=== PATIENT | male | born 1950 | race Caucasian/White ===

== ENCOUNTER 2023-05-17 07:18 | Outpatient (RCR) | payer OTHER, SELFPAY | END 2023-05-17 23:59 | disposition home or self-care (01) | LOC: RPT 07:18 | PROVIDERS: ATTENDING PHYSICIAN Family Medicine | DX: I89.0 Lymphedema, not elsewhere classified (principal); L03.115 Cellulitis of right lower limb; Z73.6 Limitation of activities due to disability | CPT/HCPCS: 97162; 97535; 97760 ==

== ENCOUNTER 2023-07-28 14:22 | Outpatient (RCR) | payer OTHER, SELFPAY | END 2023-07-28 23:59 | disposition home or self-care (01) | LOC: RPT 14:22 | PROVIDERS: ATTENDING PHYSICIAN Family Medicine | DX: I89.0 Lymphedema, not elsewhere classified (principal); L03.115 Cellulitis of right lower limb; Z73.6 Limitation of activities due to disability | CPT/HCPCS: 97535; 97763 ==

== ENCOUNTER 2024-05-20 13:05 | Inpatient (IN) | payer OTHER, MEDICARE, SELFPAY ==
[2024-05-20] VITALS (18 sets, daily range): BP systolic 75–111; BP diastolic 49–62; BMI 41.5
[2024-05-20 08:40] LABS: Hematocrit 37.3 % (39.0-52.0); Hemoglobin 12.7 g/dL (13.0-18.0); Mean Corpuscular Hgb 27.4 pg (27.0-31.0); Mean Corpuscular Volume 80.4 fL (80.0-94.0); Mean Platelet Volume 9.8 fL (7.4-10.4); Platelet Count 474 10^3/uL (130-400); Red Blood Cell Count 4.64 10^6/uL (4.70-6.10); Red Cell Dist. Width 15.4 % (11.5-14.5); White Blood Cell Count 24.2 10^3/uL (4.8-10.8)
--- NOTE | 2024-05-20 08:54 | ED.GENMED ---
History of Present Illness
General
Chief Complaint: Abdominal Symptoms
Time Seen by Provider: 05/20/24 08:24
History of Present Illness
History of Present Illness:
73-year-old male with history of hypertension, hyperlipidemia, and qsu-tkpibsy-bzyzolygi diabetes presents to the emergency department for evaluation of failure to thrive. He states that he lives alone and is unable to walk due to severe lower
extremity lymphedema. Does not really get himself to the bathroom nor has he been eating or drinking. He states he has been taking his prescribed medications. Also notes gradual worsening shortness of breath particular with exertion. Denies
fevers or chest pain.
Review of Systems
Review of Systems
Allergies reviewed?: Yes
All Other Systems: ROS reviewed and negative except as documented in HPI and ROS
Phy Exam
Physical Exam
Physical Exam:
GEN: Obese, malodorous, poor hygiene, disheveled
HEENT: Oral mucosa moist, no scleral icterus
Cardiac: Regular rate and rhythm, prominent 5/6 systolic murmur
Lung: No respiratory distress, no tachypnea, lungs clear to auscultation bilaterally
MSK: No gross deformities
Skin: Massive lower extremity lymphedema with severe skin desquamation and serous discharge circumferentially to bilateral lower extremities
Neuro: AO x3, moves all extremities freely
Psych: Calm, cooperative
Course
Orders/Labs/Results
Orders:
Orders
05/20/24 08:30
Alcohol Urgent
B-Hydroxybutyrate Urgent
Comment: ADDON
CMP [Comprehensive Metabolic Panel] Urgent
Complete Blood Count/With Diff Urgent
05/20/24 08:31
ECG [Electrocardiogram (*1)] Urgent
Reason for Study: Shortness of Breath
EKG- Treatment ONCE
05/20/24 08:54
CR Chest Portable - 1 View Urgent
Comment:
Reason For Exam: SOB
Reason Study Needs to be Portable: Unable to Transport
05/20/24 09:07
Lactic Acid Q4H
Comment: CANCEL 2nd LACTIC ACID IF 1st LACTIC ACID IS LESS THAN 2
NT-proBNP Urgent
Troponin I Urgent
Blood Culture Q30M
BUNNY Source: Blood/Venous
Specimen Description:
05/20/24 09:27
Venous Blood Gas Urgent
%Oxygen/Room Air: 96
Blood Culture Q30M
BUNNY Source: Blood/Venous
Specimen Description:
0.9% Sodium Chloride 1000 ml [Nss] 1,000 ml IV BOLUS
05/20/24 10:06
Abraham Placement- Treatment ONCE
Reason for insertion: I&O's Critical Care
Cefepime HCl [Maxipime] 2,000 mg IV NOW STA
05/20/24 10:07
Heparin 4,000 units IV NOW STA
Vancomycin [Vancocin] 1,500 mg 0.9% Sodium Chloride 500 ml [Nss] 500 ml IV NOW
Nursing to Place Non Medication Order As Directed
Physician Order: PTT 6 hours after initial start of Heparin infusion
Above order entered?: Yes
05/20/24 10:15
Heparin 54369 Units/250 ml 25,000 units in 250 ml IV PER PROTOCOL
Weight to be used for heparin protocol in kilograms (kg):: 127.5
Protocol:: Cardiac Tx/Acute Coronary
PTT Goal Range to be used:: PTT 73 to 111 seconds
Order type:: Initial
INITIAL Infusion Dose (UNITS/KG/hr) & then follow protocol:: 12 units/kg/hr
Infusion Dose in UNITS/hr & then follow protocol (UNITS/hr):: 1,000
INFUSION RATE in mL/hr & then follow protocol (mL/hr):: 10
PTT less than or equal to 64 seconds:: Increase rate by 200 units/hr (+ 2 mL/hr)
PTT 64.1 to 72.9 seconds:: Increase rate by 100 units/hr (+ 1 mL/hr)
PTT 73 to 111 seconds:: Target Range. No change in rate.
PTT 111.1 to 130.9 seconds:: Decrease rate by 100 units/hr (- 1 mL/hr)
PTT 131 to 199.9 seconds:: HOLD for 1 hr. Then decrease rate by 200 units/hr (- 2 mL/hr)
PTT greater than or equal to 200 seconds:: HOLD for 2 hrs & Notify Provider. Then decrease by 200 units/hr (-
2 mL/hr)
Lab follow-up:: Each change, PTT q6h until 2 consecutive are therapeutic. Then PTT
daily.
05/20/24 10:26
PTT Urgent
Comment: Obtain baseline before beginning heparin infusion if not already collected
Urinalysis Reflex To Culture Urgent
Date Specimen was Collected: 05/20/24
Time Specimen was Collected: 10:03
Urine Creatinine Urgent
Date Specimen was Collected: 05/20/24
Time Specimen was Collected: 10:03
Comment: ADD ON
Urine Microscopic Reflex Cult Urgent
Urine Protein Urgent
Date Specimen was Collected: 05/20/24
Time Specimen was Collected: 10:03
Comment: ADD ON
Urine Sodium Urgent
Date Specimen was Collected: 05/20/24
Time Specimen was Collected: 10:03
Comment: ADD ON
Urine Culture Urgent
BUNNY Source: U
Specimen Description:
Date Specimen was Collected: 05/20/24
Time Specimen was Collected: 10:03
05/20/24 10:30
Dextrose 5%/Water 1000 ml [D5w] 1,000 ml Sodium Bicarbonate 150 meq IV 125 mls/hr
05/20/24 11:50
Add On- LAB Routine
Tests Added?: urine sodiu, urine creatinine, urine protein
05/20/24 12:43
Admit/Transfer Patient As Directed
Co-Sign Provider:
Level of Care: Inpatient admission
Assign to:: IMU- Intermediate Care
Physician / Group: Hospitalist
Diagnosis: Sepsis +CLIFF
Reason for Hospitalization: Sepsis+CLIFF+A fib
Expected length of stay greater than two midnights?: Yes
ELOS- Estimated Length of Stay in days: 4
I certify the patient meets the requirements for IP care: Yes
PRN Pain Medication Management As Directed
May give lesser potent ordered pain med per pt: Yes
preference::
Protocol:: Medication orders for pain may be administered in a
manner that supports deferring to patient preference
when the pt is:
- Requesting an ordered lesser potent pain medication.
Least to most potent pain medications are defined
as: acetaminophen < NSAID < tramadol < opioids
(morphine, oxycodone, hydromorphone).
- Requesting a lesser dose of the same medication IF
ORDERED.
- Requesting a less intrusive route of administration
if both routes are prescribed by the provider (PO <
IV).
05/20/24 12:46
Code Status As Directed
Resuscitation Status: Full Code
05/20/24 14:10
Dextrose 50%-Water [Dextrose 50% Syringe] 12.5 grams IV [id number] PRN
Glucagon [GlucaGen] 1 mg IM PRN PRN
VANCOMYCIN Pharmacy to Dose [VANCOCIN Pharmacy to Dose] 1 each Pharmacy To Prepare [Call Pharmacy To Prepare] 0 ml IV PER PROTOCOL
05/20/24 14:10
Activity As Directed
Activity Level: As Tolerated
Bedside Glucose Monitoring As Directed
Frequency: AC&HS
Additional Instructions:: Change to q6h if pt on TPN, tube feeding or not eating
Intake/ Output As Directed
Frequency: Per unit guidelines
Vital Signs As Directed
Frequency: Per unit guidelines
05/20/24 16:30
PTT Urgent
Insulin Aspart Corrective Low [Novolog Flexpen-Low Resistance] See Protocol SC AC
05/21/24 06:00
Electrocardiogram (*1) IN AM
Reason for Study: Atrial Fibrillation
Complete Blood Count/No Diff IN AM
Comprehensive Metabolic Panel IN AM
Glycohemoglobin (HgbA1c) IN AM
05/21/24 10:00
Cefepime HCl [Maxipime] 1,000 mg IV Q24H
Abnormal Lab Results
05/20/24 05/20/24 05/20/24
: 09:27 10:26
WBC 24.2 H 10^3/uL
(4.8-10.8)
RBC 4.64 L 10^6/uL
(4.70-6.10)
Hgb 12.7 L g/dL
(13.0-18.0)
Hct 37.3 L %
(39.0-52.0)
RDW 15.4 H %
(11.5-14.5)
Plt Count 474 H 10^3/uL
(130-400)
Abs Immat Gran (auto) 0.3 H 10^3/uL
(0-0.05)
Absolute Neuts (auto) 21.4 H 10^3/uL
(1.4-6.5)
Absolute Lymphs (auto) 0.7 L 10^3/uL
(1.2-3.4)
Absolute Monos (auto) 1.7 H 10^3/uL
(0.1-0.6)
Immature Gran % 1.1 H %
(0-0.5)
Neutrophils % 88.2 H %
(42.2-75.2)
Lymphocytes % 3.0 L %
(20.5-51.1)
APTT 35.4 H Sec
(23.4-35.0)
VBG pH 7.22 L
(7.32-7.43)
VBG HCO3 17.6 L mmol/L
(22-27)
Sodium 130 L mmol/L
(135-145)
Potassium 5.7 H mmol/L
(3.5-5.1)
Chloride 96 L mmol/L
(98-107)
Carbon Dioxide 17 L mmol/L
(22-30)
BUN 128 H* mg/dl
(9-20)
Creatinine 5.3 H* mg/dL
(0.7-1.3)
Glucose 164 H mg/dl
(70-99)
Total Bilirubin 1.4 H mg/dl
(0.2-1.3)
Alkaline Phosphatase 209 H U/L
(38-126)
Albumin 3.2 L g/dl
(3.5-5.0)
Ur Occult Blood Reflex 1+ A
(Negative)
Urine Bilirubin 2+ A
(Negative)
Leukocyte Esterase Rfl 2+ A
(Negative)
Urine Bacteria (Reflex) Many A
(Negative)
Urine Sodium 13 L mmol/L
(30-90)
Urine Total Protein 82 H mg/dl
(0-12)
Urine Albumin (Reflex) 3+ A
(Neg - Trace)
05/20/24 08:30
05/20/24 08:30
Vital Signs
Initial and Last Documented VS:
Initial Vital Signs
Pulse Resp BP
109 9 90/52
05/20/24 08:12 05/20/24 08:12 05/20/24 08:12
Last Documented Vital Signs
Temp Pulse Resp BP Pulse Ox
98.3 F 93 21 96/57 97
05/20/24 08:14 05/20/24 11:00 05/20/24 11:00 05/20/24 11:00 05/20/24 10:00
MDM/Problems Addressed
MDM/Problems Addressed:
Patient is profoundly ill in acute renal failure with metabolic acidosis and hyperkalemia. Started on IV fluid resuscitation and IV sodium bicarbonate for correction of acidosis with gap. Concerned that he may progress to worsening renal failure
given lack of urine output while in the ED. He is also noted to have a blowing systolic murmur, limited bedside echocardiogram performed by myself shows no pericardial effusion. He does have severe cardiomegaly which gives concern for possible LVH
versus valvular disease. Also noted to have severe leukocytosis which is most likely due to cellulitis to the bilateral lower extremities. Started on broad-spectrum IV antibiotics. Admitted to the hospitalist service, nephrology consultation
initiated in the ED
*Critical Care Note
Total Time (30-74mins, 75-104mins- exclusive of procedures): 80 minutes
comment:
Critical care time: 80 minutes
Critical care time was exclusive of: Separately billable procedures, treating other patients, and teaching time
Critical care was necessary to treat or prevent imminent or life-threatening deterioration of the following conditions: Metabolic acidosis/renal failure
Critical care time spent personally by me on the following activities:
[x] Review of old charts
[x] Obtaining history from patient or surrogate
[x] Ordering and review of the laboratory studies
[x] Ordering and review of radiographic studies
[x] Ordering and performing treatments and interventions
[x] Patient patient's response to treatment
[x] Development of treatment plan with patient or surrogate
ED Attending Note
-
Portions of this chart may have been created with voice recognition software.� Occasional wrong word or��sound alike� substitutions may have occurred due to the inherent limitations of voice recognition software.
Discharge Plan
Departure
Patient Disposition: Admit
Date of Disposition: 05/20/24
Time of Disposition: 10:43
Admit to: IMU
Presentation/result/management discussed w/ accepting MD/DO: Hospitalist
Discharge Problem:
Acute renal failure, Bilateral lower leg cellulitis, Heart murmur, Cardiomegaly, Adult failure to thrive, Metabolic acidosis, Acute hyperkalemia
Interventions
Interventions:
*Risk Screen - Suicide Last Done: 05/20/24 08:14
*General Assessment Last Done: 05/20/24 08:14
*Neglect/Abuse Screening Last Done: 05/20/24 08:14
*ED- Fall Risk Assessment Last Done: 05/20/24 08:14
*ED COVID-19 Vaccine History Last Done: 05/20/24 08:14
VC-Wujtop-Sxcbcopsxj Assessment Last Done: 05/20/24 08:49
[2024-05-20 08:57] LABS: ALT (SGPT) 19 U/L (0-50); AST (SGOT) 20 U/L (17-59); Albumin 3.2 g/dl (3.5-5.0); Alkaline Phosphatase 209 U/L (38-126); Calcium 9.1 mg/dl (8.4-10.2); Carbon Dioxide 17 mmol/L (22-30); Chloride 96 mmol/L (98-107); Estimated Creatinine Clearance 16 ml/min; Glucose 164 mg/dl (70-99); Potassium 5.7 mmol/L (3.5-5.1); Sodium 130 mmol/L (135-145); Total Bilirubin 1.4 mg/dl (0.2-1.3); Total Protein 6.8 g/dl (6.3-8.2); eGFR 10.61
[2024-05-20 09:17] LABS: Blood Urea Nitrogen 128 mg/dl (9-20)
[2024-05-20 09:20] LABS: % Basophils 0.4 % (0-2); % Eosinophils 0.2 % (0-6); % Immature Granulocytes 1.1 % (0-0.5); % Monocytes 7.1 % (1.7-9.3); % Neutrophils 88.2 % (42.2-75.2); Absolute Basophils 0.1 10^3/uL (0-0.2); Absolute Immature Granulocytes 0.3 10^3/uL (0-0.05); Absolute Lymphocytes 0.7 10^3/uL (1.2-3.4); Absolute Monocytes 1.7 10^3/uL (0.1-0.6); Absolute Neutrophils 21.4 10^3/uL (1.4-6.5); Nucleated Red Blood Cells % 0 % (-)
[2024-05-20 09:25] LABS: Lactic Acid 1.6 mmol/L (0.7-2.0)
[2024-05-20 09:38] LABS: NT-proBNP 10600 pg/ml; Troponin I < 0.012 ng/ml
[2024-05-20 09:42] LABS: Venous Blood Gas B.E. -9.7 mmol/L (-4 to +4); Venous Blood Gas HCO3 17.6 mmol/L (22-27); Venous Blood Gas O2 Sat % 64.8 %; Venous Blood Gas pCO2 43 mmHg (35-48); Venous Blood Gas pH 7.22 (7.32-7.43); Venous Blood Gas pO2 45 mmHg (30-50)
[2024-05-20] MEDS: NSS 1000 IV (09:53)
[2024-05-20] MEDS: MAXIPIME 2000 MG IV (10:18)
[2024-05-20] MEDS: HEPARIN 4000 UNITS IV (10:31)
[2024-05-20] MEDS: HEPARIN 25000 UNITS/250 ML IV (10:31)
[2024-05-20] MEDS: VANCOCIN 530 MG IV (10:40)
[2024-05-20 10:56] LABS: APTT 35.4 Sec (23.4-35.0); Urine Albumin 3+ (Neg - Trace); Urine Bilirubin 2+ (Negative); Urine Character Clear (Clear); Urine Color Amber; Urine Glucose Negative (Negative); Urine Ketone Negative (Negative); Urine Leukocyte 2+ (Negative); Urine Nitrite Negative (Negative); Urine Occult Blood 1+ (Negative); Urine Urobilinogen 1+ (Neg - 1+)
[2024-05-20 11:23] LABS: Urine Squamous Cell 0-2 /LPF (Few)
[2024-05-20 11:24] LABS: Urine Bacteria Many (Negative); Urine Red Blood Cell 0-2 /HPF (0-2)
--- NOTE | 2024-05-20 11:26 | W.CON.NEPH ---
Consultation
-
Date/Time Consultation Requested: 05/20/24 1045
Date/Time Consultation Performed: 05/20/24 1115
Requesting Provider: John Paul Cummings
Performing Provider: Kassie Layton
Reason for Consultation: JOSEPHINE
Medical History
-
Chief Complaint: abd pain, FTT
History of Present Illness:
Mr Currie is a 73-year-old male who has history of hypertension on and atenolol,amlodipine, valsartan, hydrochlorothiazide, type 2 diabetes on metformin, chronic lymphedema who reportedly [facility] on [facility]sem[facility] with no known
history of heart disease, hyperlipidemia on statin who presents to the hospital with upset stomach and generalized weakness. Patient reports for 1 month he hasn't been feeling well. He had mild asthma and increased symptoms earlier and saw
pulmonology, takes inhalers which seem to help. He thinks he might have lost some weight due to poor appetite. He reports of drinking enough liquids however he did notice decreased urine output lately. Denies any dysuria. He lives alone,
visits him weak and that she works in [place]. Denies any fever. No nausea or vomiting. No diarrhea. His labs noted WBC of 24.2,Creatinine 5.3, BUN 128, bicarbonate 17, potassium 5.7 with elevated BNP 10,600, His blood pressures systolic are
90s. His baseline creatinine 1.2 in March 2023. Nephrology consult for abnormal renal function. He has a Echevarria catheter placed only 50 cc of urine in the bag. reports of using ibuprofen every day for last 1 week.
Past Medical History
Hypertension
Hyperlipidemia
Asthma
Morbid obesity
Lower extremity lymphedema
Type 2 diabetes
Social History
Tobacco: Former Smoker
Alcohol: Daily ( 1-2 drinks)
Drug: None
Personal:
Living: Alone
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
Family History
no ckd
Family History: Not Pertinent
Allergies / Home Medications
Allergy/AdvReac Type Severity Reaction Status Date / Time
No Known Allergies Allergy Unverified 05/20/24 08:12
�Medication �Instructions �Recorded �Confirmed �Type
amlodipine 10 mg tablet 10 mg PO DAILY 05/20/24 05/20/24 History
atenolol 50 mg tablet 50 mg PO DAILY 05/20/24 05/20/24 History
atorvastatin 20 mg tablet (Lipitor) 20 mg PO DAILY 05/20/24 05/20/24 History
metformin 1,000 mg tablet 1,000 mg PO BID 05/20/24 05/20/24 History
potassium chloride 10 mEq 10 meq PO DAILY 05/20/24 05/20/24 History
capsule,extended release
torsemide 1 tab PO DAILY 05/20/24 History
valsartan 320 1 tab PO DAILY 05/20/24 05/20/24 History
mg-hydrochlorothiazide 25 mg tablet
Review of Systems
-
All complete 12 point ROS have been inquired and found negative other than stated in HPI
Physical Exam
Vital Signs
Vital Signs
Temp Pulse Resp BP Pulse Ox
98.3 F 93 21 96/57 97
05/20/24 08:14 05/20/24 11:00 05/20/24 11:00 05/20/24 11:00 05/20/24 10:00
Lab Results
WBC 24.2 10^3/uL (4.8-10.8) H 05/20/24 08:30
RBC 4.64 10^6/uL (4.70-6.10) L 05/20/24 08:30
Hgb 12.7 g/dL (13.0-18.0) L 05/20/24 08:30
Hct 37.3 % (39.0-52.0) L 05/20/24 08:30
Plt Count 474 10^3/uL (130-400) H 05/20/24 08:30
Sodium 130 mmol/L (135-145) L 05/20/24 08:30
Potassium 5.7 mmol/L (3.5-5.1) H 05/20/24 08:30
Chloride 96 mmol/L (98-107) L 05/20/24 08:30
Carbon Dioxide 17 mmol/L (22-30) L 05/20/24 08:30
BUN 128 mg/dl (9-20) H* 05/20/24 08:30
Creatinine 5.3 mg/dL (0.7-1.3) H* 05/20/24 08:30
eGFR 10.61 05/20/24 08:30
Glucose 164 mg/dl (70-99) H 05/20/24 08:30
Calcium 9.1 mg/dl (8.4-10.2) 05/20/24 08:30
Vdd-K-Unpbpnjfzwj Pept 20536 pg/ml 05/20/24 09:07
Albumin 3.2 g/dl (3.5-5.0) L 05/20/24 08:30
Physical Exam
General: Awake, Alert, Oriented, AOx3 and No Distress
HEENT: EOMI, Anicteric, Conjunctivae Clear, Facial Symmetry and Neck Supple
Respiratory: Normal Excursion, Nonlabored Respirations and Other (decreased BS)
Cardiac: S1/S2, Murmur and Rub
Breast: Deferred by me
Abdomen: Soft, Nontender and Nondistended
Genito-urinary: Clear Urine
Musculoskeletal: Edema (3+)
Skin: Other (Chronic skin changes with the erythema of the lateral lower extremities, there is mild pussy discharge in the right leg)
Neuro: Nonfocal/Grossly Intact
Psych: Mood/afflect pleasant and Appropriate
Data Reviewed
-
Radiology: Report Reviewed by me and Discussed with Patient
Labs: Labs Reviewed by me, Discussed with Physician and Discussed with Patient
Assessment/Plan
-
IMP:
Possible sepsis with bilateral lower extremity cellulitis
Josephine-Baseline creatinine of 1. 16 March 2023
Hyperkalemia
Significant azotemia
Anion gap metabolic acidosis
Hyponatremia
new A. fib
Type 2 diabetes
Lymphedema
Hypertension
Hyperlipidemia
Asthma
Obesity
Hypoalbuminemia
heart murmur
Plan:
A/w abd pain, FTT
JOSEPHINE-suspect prerenal in setting of sepsis and poor po intake +NSAIDs
only 50cc in echevarria , UA bacteruria but 3+ alb-check U PCR
check renal US
abnormal heart sound, low voltage on EKG, no effusion per ER on pint of care US
check echo, BNP elevated
difficult to assess fluid status, would continue IVF at this time
BP are marginal, prn pressors to keep MAP>65
hyperkalemia-stop kcl, expect to improve as acidosis is better, Lokelma prn
met acidosis-gap, L acid normal. on bicarb IVF
recheck labs later today and adjust IVF
no emergent indication of HD however at high risk-pt agrees with HD if needed
hyponatremia-monitor
dose abx renally , avoid nephrotoxins , hold diuretics, ARB, metformin
d/w ER and pt
CC time spent 45min
[2024-05-20] MEDS: SODIUM BICARBONATE 1150 MEQ IV (12:36)
--- NOTE | 2024-05-20 12:42 | HPS.HSE ---
Addendum entered and electronically signed by Luz Collazo MD 05/20/24 16:15:
I personally performed a history and physical exam of the patient and discussed management with the resident. I reviewed the resident's note and agree with the documented findings and plan of care HPI/CC.
Patient was seen earlier today. Late documentation.
Stated that he lives on the middle floor of the house and does not go up to get a shower. For the past couple of weeks he has been very much sedentary and has been going downhill. Stated that his works in [place] and she comes back over the
weekend otherwise he lives by himself. He has not seen a physician in 4 years.
On examination awake and alert
Cardiovascular system irregular S1-S2
Chest decreased breath sounds bilaterally
Abdomen soft and nontender
Bilateral lower extremity with weeping small wounds and skin discoloration bilaterally. Chronic venous stasis changes with skin thickening
# Sepsis
Likely source cellulitis
Cannot rule out UTI blood cultures pending.
Continue vancomycin and cefepime
Wound care
When pain is better needs compression therapy
# Acute kidney injury with metabolic acidosis and hyperkalemia
Check urine sodium creatinine, FENA
Both And nongap metabolic acidosis
Abraham catheter placed in the ER
Hold valsartan, hydrochlorothiazide, potassium, torsemide, metformin and also atenolol
Will give Lokelma for hyperkalemia
Intake output charting
IV fluids with bicarb for now
Patient really needs to get an echo to guide fluid management if the EF is less than 30% really needs diuresis
Depending upon the echo patient may need Lasix if the EF is less than 30%
proBNP 10,600
Nephrology consulted
# Cardiomegaly. Possible CHF/cardiomyopathy
Patient really needs to get an echo to guide fluid management if the EF is less than 30% really needs diuresis
Depending upon the echo patient may need Lasix if the EF is less than 30%
proBNP 10,600
# Hyponatremia
# New onset atrial fibrillation
Heparin drip started in the ER
Hold atenolol given renal failure
Consider metoprolol if heart rate goes up
# Diabetes-hold metformin. Check hemoglobin A1c. Accu-Cheks and sliding scale coverage
# Alcohol use disorder drinks 3 glass of vodka every dayMSAS and thiamine replacement
# Hypertension-hold valsartan, hydrochlorothiazide, amlodipine and atenolol. Blood pressure on the softer side
# Hyperlipidemia-continue atorvastatin
# Obesity with a BMI of 41
# Hypoalbuminemia
# Chronic lymphedema bilateral lower extremities
# DVT prophylaxis-subcutaneous heparin
# Full code
Medically very complex
Discussed with cardiology
Time spent over 75 minutes
Original Note:
Family Physician
-
Family Physician: Lisha Gold MD
Chief Complaint
-
Weak and not feeling well overall
History of Present Illness
73-year-old male with known past medical history of hypertension, hyperlipidemia, lymphedema bilateral LE and inu-oozjbqy-vdgqobpam diabetes presented in the emergency department with concerns of not feeling well for last few weeks.
He informed me that his family doctor is in [place] and his last visit was more than 4 years ago. He has been doing okay without needing any care however for the last few weeks he has been noticing weakness and for the past 2 days he has been
having trouble urination. In addition to that he has been noticing some discharge from bilateral lower legs. He states that his appetite also decreased, he lives alone in a multistory home where he he is usually not able to take shower for weeks.
Per patient he has been compliant with the medication.
He has been noticing gradual worsening of shortness of breath especially with exertion. Denies chest pain, nausea, vomiting, diarrhea and constipation. Denies any recent sick contacts or illness. Denies any recent travel. Denies use of any
illicit drugs. He denies any history of any heart conditions.
Vitals in the ER showed pulse of 109 with blood pressure of 90/52, afebrile.
In the ER he was found to have serum creatinine of 5.3 with BUN of 128. Sodium 130, potassium 5.7, lactic acid 1.6, troponin negative, proBNP 90598, WBC count of 24. VBG with pH of 7.2
UA consistent with UTI
EKG with A-fib
Chest x-ray: Moderate cardiomegaly with likely trace bilateral pleural effusions
Medical History
Past Medical History
Past Medical History: Reports HTN, Hypercholesterolemia, NIDDM and Other (Lymphedema)
Past Surgical History: Reports None (Does not remember any.)
Social History
Tobacco: Non-smoker
Alcohol: Daily (3 vodka)
Drug: None
Personal:
Living: Alone
Family History
Family History: Not pertinent
Allergies / Home Medications
Allergies reflects when Allergies were last updated in [facility].
Home Medications with original date entered in [facility]
Allergy/Medication List:
Allergies
Allergy/AdvReac Type Severity Reaction Status Date / Time
No Known Allergies Allergy Unverified 05/20/24 08:12
Home Medications
amlodipine 10 mg tablet 10 mg PO DAILY 05/20/24
atenolol 50 mg tablet 50 mg PO DAILY 05/20/24
atorvastatin 20 mg tablet (Lipitor) 20 mg PO DAILY 05/20/24
metformin 1,000 mg tablet 1,000 mg PO BID 05/20/24
potassium chloride 10 mEq capsule,extended release 10 meq PO DAILY 05/20/24
torsemide 1 tab PO DAILY 05/20/24
valsartan 320 mg-hydrochlorothiazide 25 mg tablet 1 tab PO DAILY 05/20/24
Review of Systems
-
History Source: Patient
A 12 point ROS was completed and negative except as noted: Yes
Respiratory: Reports See HPI
Cardiac: Reports See HPI
Abdomen/GI: Reports See HPI
: Reports See HPI
Skin: Reports See HPI
Physical Exam
Vital Signs
Vital Signs
Temp Pulse Resp BP Pulse Ox
98.3 F 93 21 96/57 97
05/20/24 08:14 05/20/24 11:00 05/20/24 11:00 05/20/24 11:00 05/20/24 10:00
Physical Exam
General: Appears Chronically Ill and Obese
Respiratory: Non Labored Respirations and Decreased Breath Sounds
Cardiac: S1/S2 and Irregular Rhythm
GI: Soft and Non Tender
Genito-urinary: Abraham
Musculoskeletal: Edema, Left Lower Extremity and Edema, Right Lower Extremity
Skin: Other (Purulent discharge from bilateral lower extremities-tender to touch)
Neuro: Awake, Alert and Oriented
Psych: Calm
Laboratory Results
-
05/20/24 08:30
05/20/24 08:30
Laboratory Results
APTT 35.4 Sec (23.4-35.0) H 05/20/24 10:26
Lactic Acid Cancelled 05/20/24 13:00
Total Bilirubin 1.4 mg/dl (0.2-1.3) H 05/20/24 08:30
AST 20 U/L (17-59) 05/20/24 08:30
ALT 19 U/L (0-50) 05/20/24 08:30
Alkaline Phosphatase 209 U/L (38-126) H 05/20/24 08:30
Troponin I < 0.012 ng/ml 05/20/24 09:07
Data Reviewed
-
Diagnostic Radiology: Report Reviewed by me
Lab Data: Labs Reviewed by me, Discussed with Physician and Discussed with Patient
Impression/Plan
-
73-year-old male with known past medical history of hypertension, hyperlipidemia, lymphedema bilateral LE and gmt-gtstgzy-pzpfsjway diabetes presented in the emergency department with concerns of not feeling well for last few weeks. Found to have
sepsis, CLIFF, new onset A-fib, purulent discharge from bilateral lower extremity lymphedema
# Sepsis -likely due to UTI versus infection and bilateral LE
-Blood culture pending
-UA consistent with UTI; urine culture pending
-Wound consult; potentially will need compression once discharge stops
-Consult ID
-Continue empiric IV Vanco and cefepime
# CLIFF with hyperkalemia
# Hyponatremia; corrected sodium 121
# Metabolic acidosis; anion gap and non-anion gap with delta of 0.7
-Check urine sodium and creatinine; FeNa?
-Abraham in place
-Consult nephro
-Will get beta-hydroxybutyrate
-Avoid nephrotoxins
-Hold home potassium chloride
# New onset atrial fibrillation
-Continue heparin drip
-Chest x-ray with cardiomegaly, bedside echo in the ER shows no pericardial effusion however massive cardiomegaly
-Consult cardiology
-Potentially require echo today
# Lymphedema; bilateral LE
-Purulent on exam
-Wound consult
-Potentially need compression therapy
# Alcohol use disorder
-Drinks 3 vodka daily
-Check serum alcohol level
-MSAS
-Check mag
# Diabetes mellitus type 2
-Check A1c
-Insulin sliding scale
-Hold metformin
# Essential hypertension
-Hold valsartan/HCTZ, atenolol, amlodipine
# Hyperlipidemia
-Continue atorvastatin
CODE STATUS: Full code
Diet: Diabetic plus renal
[2024-05-20 12:55] LABS: Urine Protein 82 mg/dl (0-12); Urine Sodium 13 mmol/L (30-90)
--- NOTE | 2024-05-20 14:26 | CON.CAR ---
Consultation
Consultation Request
Date/Time Consultation Requested: 05/20/2024
Date/Time Consultation Performed: 05/20/2024
Requesting Provider: Dr. Collazo
Performing Provider: Dr. Vargas
Reason for Consultation: AF, CHF
Medical History
-
Chief Complaint: FTT, SOB
History of Present Illness:
I met Kush Cramer in ED bed 39; I later spoke with his Sanam over the phone to obtain more information. Kush is a 73-year-old gentleman with a history of hypertension, type 2 diabetes mellitus, dyslipidemia, lymphedema and obesity who
presents with acute renal failure, volume overload, atrial fibrillation and bilateral cellulitis with concern for sepsis. He has had a previous cardiac evaluation while living in [facility] with Dr. Argueta through [facility] last seen
about 4 to 5 years ago prior to his relocation to this area. His reports that cardiac testing including echo and stress testing were unremarkable and he has no history of atrial fibrillation, thromboembolic disease stroke/TIA, CAD or PAD. He
and his live independently however his does come down to check on him every couple of weeks. She states that in mid March he had a major change and stopped caring for himself becoming more sedentary. He is only moving around the first
floor of his home and he has not showered in approximately a month. He stopped his treatments of lymphedema and has not been eating or drinking. He also drinks approximately 3 glasses of vodka daily.Patient states that he is continued his
outpatient medications which include metformin, potassium chloride, valsartan/hydrochlorothiazide, atenolol, amlodipine and atorvastatin. Additionally he has been taking daily ibuprofen. His came to see him on which prompted
hospitalization today.
In the emergency department he was found to be hypotensive with initial blood pressure 90/52, in atrial fibrillation with heart rates in the 100s. Lab work with WBC 24.2 with left shift, hemoglobin 12.7, platelets of 474,000. Sodium was 130,
potassium 5.7, carbon dioxide 17, BUN and creatinine 128/5.3. Glucose 164, lactic acid 1.6. Total bilirubin 1.4. Alkaline phosphatase 209. AST ALT 20/19. Troponin less than 0.0.1. proBNP 10,600. Blood and urine cultures are pending. Chest
x-ray shows moderate cardiomegaly with trace bilateral pleural effusions. EKG atrial fibrillation with right bundle branch block and left anterior fascicular block with no prior for comparison.
Past medical history: Hypertension, dyslipidemia, type 2 diabetes mellitus, lymphedema, obesity
Past surgical history: Cyst removed from neck
Past Medical History
Past Medical History: Other (See HPI)
Past Surgical History: Other (See HPI)
Social History
Tobacco: Non-Smoker
Alcohol: Daily (3 glasses of vodka daily)
Drug: None
Personal:
Living: Alone
Employment: Retired
Family History
Family History: Reviewed & Not Pertinent
Allergies / Home Medications
Allergy/AdvReac Type Severity Reaction Status Date / Time
No Known Allergies Allergy Unverified 05/20/24 08:12
�Medication �Instructions �Recorded �Confirmed �Type
amlodipine 10 mg tablet 10 mg PO DAILY 05/20/24 05/20/24 History
atenolol 50 mg tablet 50 mg PO DAILY 05/20/24 05/20/24 History
atorvastatin 20 mg tablet (Lipitor) 20 mg PO DAILY 05/20/24 05/20/24 History
metformin 1,000 mg tablet 1,000 mg PO BID 05/20/24 05/20/24 History
potassium chloride 10 mEq 10 meq PO DAILY 05/20/24 05/20/24 History
capsule,extended release
torsemide 1 tab PO DAILY 05/20/24 History
valsartan 320 1 tab PO DAILY 05/20/24 05/20/24 History
mg-hydrochlorothiazide 25 mg tablet
Review of Systems
-
History Source: Patient, Family and Coordinating Provider
All other systems: Negative unless noted
Constitutional: Weight Gain, Fatigue and Sleep Disturbance
EENT: No Symptoms
Respiratory: Trouble Breathing
Cardiac: No Symptoms
Abdomen/GI: Abdominal Pain, Nausea and Constipated
: Other (Decreased urination)
Musculoskeletal: Muscle Pain and Edema
Neurological: Weakness
Hematologic/Lymphatic: No Symptoms
Physical Exam
Vital Signs
Temp Pulse Resp BP Pulse Ox
98.3 F 93 21 96/57 97
05/20/24 08:14 05/20/24 11:00 05/20/24 11:00 05/20/24 11:00 05/20/24 10:00
Lab Results
05/20/24 08:30
05/20/24 08:30
Troponin I < 0.012 ng/ml 05/20/24 09:07
Fjt-Q-Qhzrlmuteql Pept 47474 pg/ml 05/20/24 09:07
Physical Exam
General: Other (Poorly kept 73-year-old gentleman who appears older than stated age)
HEENT: Normocephalic, Anicteric and Other (Dry mucous membranes.)
Respiratory: Other (Bronchovesicular breath sounds decreased at the bases with fine crackles)
Cardiac: S1/S2, Irregular Rhythm and Peripheral Edema; Negative Murmur or Rub
Breast: Deferred by me
GI: Non Tender and Other (Obese, distended. Positive bowel sound)
Musculoskeletal: Other (Lymphedema with chronic venous stasis changes and skin thickening. Malodorous weeping wounds bilaterally.)
Neuro: Other (Awake alert and oriented x 3 but poor historian)
Impression / Plan
-
Power Plant Superintendent: None
Impression:
Atrial fibrillation, new diagnosis
Sepsis with leukocytosis, hypertension with bilateral cellulitis and possible UTI
Acute renal failure with metabolic acidosis and hyperkalemia
Volume overload with component of heart failure with preserved ejection fraction in the setting of acute renal failure
Hyponatremia
Morbid obesity, suspect COLT
Type 2 diabetes mellitus
Hyperlipidemia
Hypertension
Lymphedema
Alcohol use disorder
Poor self care
2D echocardiogram done at bedside in ED: Normal left ventricular size and systolic function with a EF estimated around 60% with moderate LVH. Aortic sclerosis without aortic stenosis or insufficiency. Mild mitral regurgitation. Trace tricuspid
regurgitation. Biatrial dilatation.Right ventricle mildly enlarged with overall low normal RV systolic function. IVC is dilated and does not collapse.No pericardial effusion
Plan:
Atrial fibrillation, new diagnosis
-Rate control strategy
-IV Heparin gtt
-Check TSH
Sepsis with leukocytosis, hypertension with bilateral cellulitis and possible UTI
-IV fluid resuscitation and hold antihypertensive therapy
-Antibiotics per primary
-Cultures pending
-Wound care
Acute renal failure with metabolic acidosis and hyperkalemia/Hyponatremia
-Likely related to dehydration, continued alcohol use, and antihypertension while taking his medications which include valsartan/hydrochlorothiazide, potassium, amlodipine, atenolol and metformin. Additionally he was taking brcr-xlb-vbmpoul NSAIDs
-Nephrology consulted
-2D echocardiogram with preserved ejection fractionA and no significant pericardial effusion�will continue IV fluid but monitor volume status closely as he will likely eventually need Lasix
-Hold antihypertensive therapy and metformin
-Follow urine output and basic metabolic profile closely
Volume overload with component of heart failure with preserved ejection fraction in the setting of acute renal failure
-Continue IV fluids for now although he will likely eventually need Lasix
-Discussed concern for possible thromboembolic disease with hospitalist given patient's immobility and low normal RV systolic function with mild enlargement. Continue IV heparin and eventually will check lower extremity Dopplers. Unable to obtain
CTA of the chest given acute renal insufficiency and I do not believe that he would perform a VQ scan adequately at this time
-High suspicion that he has untreated sleep apnea which will eventually need to be evaluated
Data Reviewed
-
EKG: Report Reviewed by me
Radiology: Report Reviewed by me
Ultrasound: Report Reviewed by me
Medical Tests (Nuc Med, Echo etc): Image Personally Visualized and interpreted
Labs: Labs Reviewed by me
--- NOTE | 2024-05-20 14:35 | PHA.VAN.IN ---
Assessment
- Assessment
Renal Function: Unknown baseline (ED SCr 5.3, est. CrCl 16)
Concomitant Antimicrobials: Cefepime
Plan
- Plan
Initial / Loading Dose: Vanco 1500mg Loading given 05/20/24 1040
Maintenance Regimen: Vanco dose by level
Monitoring: Vanco Random level 05/21/24 0600
Pharmacokinetics Vancomycin I
- -
Patient Age: 73
Patient Sex: Male
Vancomycin Day #: 1
Indication: Genito-Urinary Tract
Requesting Provider: ANA
Pertinent Antimicrobial Allergies:
No Known Drug Allergies
Height / Weight:
Height 5 ft 9 in
Actual Weight 127.5 kg
Pertinent Past Medical History: BMI 41.5
- Vital Signs / Lab Results
Temp Pulse Resp BP Pulse Ox
98.3 F 93 21 96/57 97
05/20/24 08:14 05/20/24 11:00 05/20/24 11:00 05/20/24 11:00 05/20/24 10:00
Lab Results - Hematology
05/20/24
08:30
WBC 24.2 H
Lab Results - Chemistry
05/20/24
08:30
BUN 128 H*
Creatinine 5.3 H*
Estimated Creat Clear 16
Albumin 3.2 L
05/20/24 05/20/24
09:07 13:00
Lactic Acid 1.6 Cancelled
Lab Results - Urine
05/20/24
10:26
Urine Nitrite (Reflex) Negative
Leukocyte Esterase Rfl 2+ A
Urine WBC (Reflex) 3-5
Ur Squamous Epith Cells 0-2
Urine Bacteria (Reflex) Many A
[2024-05-20 15:04] LABS: Alcohol None Detected
[2024-05-20 15:10] LABS: B-Hydroxybutyrate 0.86 mmol/L (0.02-0.27)
[2024-05-20 16:38] LABS: Glucose - Point of Care 198 mg/dl (70-99)
[2024-05-20] MEDS: LOKELMA 10 GRAM PO (16:59)
[2024-05-20 17:02] LABS: APTT 41.4 Sec (23.4-35.0)
--- NOTE | 2024-05-20 17:08 | CON.ID ---
Consultation
-
Date/Time Consultation Requested: May 20, 2024 1410
Date/Time Consultation Performed: May 20, 2024 1700
Requesting Provider: Dr. Leonardo Murillo
Performing Provider: Dr. Leyla Booth
Reason for Consultation: Purulent discharge from lower extremity lymphedema
Chief Complaint / Past History
Chief Complaint
Weakness
History of Present Illness
History obtained from the patient as well as from his at bedside. He is a 73-year-old male with asthma, diabetes mellitus, class III obesity BMI 42, bilateral lower extremity lymphedema who presented to the ER today due to severe weakness,
weeping lower extremities. Patient has not been feeling well for the past month decreased appetite and progressive weakness. He goes to lymphedema clinic up until a month ago when he started feeling unwell. He gets short of breath with activity.
For the past 2 weeks he was so weak, he was not able to care for himself. He lives alone. His works in [place] and she comes home once for twice a month for the weekend. He noted decreased urine output. No dysuria. Lower extremity edema
significantly worse and started to weep fluids. He was taking ibuprofen past week for plantar fasciitis. EMS brought him to the hospital. White count of 24. He is in acute renal failure with BUN 128, creatinine 5.3, potassium 5.7, sodium 130.
Chest x-ray with moderate cardiomegaly. BNP 10,000. Patient in A-fib. He is currently on vancomycin and cefepime for bilateral lower extremity cellulitis.
Past History
Additional Past Medical History:
Diabetes mellitus
Asthma
Dyslipidemia
Hypertension
Class III obesity BMI 42
Bilateral lower extremity lymphedema - goes to lymphedema PT
Allergy History:
No Known Allergies Allergy (Unverified 05/20/24 08:12)
Medications Reviewed: Yes
Current Antibiotics:
Vancomycin
Cefepime
Social History
Tobacco: Former Smoker
Alcohol: Daily (1-2 drinks)
Drug: None
Personal:
Living: Alone
Review of Systems
Review of Systems
General: Chills and Change in Appetite; Negative Fever
HEENT: Negative Stiff Neck, Sinus Problems, Headache or Pharyngitis
Cardiovascular: Dyspnea and Edema; Negative Chest Pain
Respiratory: Negative Cough or Sputum Production
Gasteroenterology: Negative Nausea, Vomiting or Diarrhea
Genital / Urological: Negative Dysuria, Hematuria or Flank Pain
Endocrine: Weakness and Fatigue
Neurological: Negative Dizziness
All systems: All other systems were reviewed and were negative
Vital Signs
Temp Pulse Resp BP Pulse Ox
98.3 F 96 15 111/62 97
05/20/24 08:14 05/20/24 16:00 05/20/24 16:00 05/20/24 16:00 05/20/24 16:00
Physical Exam
Physical Exam
Constitutional: No Acute Distress and Obese
Head: Other (No frontal or max or sinus tenderness)
Eyes: No Conjunctival Hemorrhage and Sclera Anicteric
Cardiovascular: Irregular Rate and S1/S2
Pulmonary: Clear
Gastrointestinal: Soft, Non Tender, Non Distended and Normal Bowel Sounds
Genito-Urinary: Abraham and Clear Urine; Negative Suprapubic Tenderness or CVA Tenderness
Extremities: Other (BLE 3-4+ edema, lymphedema changes thick woody tissue, + erythema BLE, several shallow wounds with thick light yellow exudate/slough)
Neurological: AO x 3
Lab / Diagnostic Study Results
05/20/24 08:30
Abs Immat Gran (auto) 0.3 10^3/uL (0-0.05) H 05/20/24 08:30
Absolute Neuts (auto) 21.4 10^3/uL (1.4-6.5) H 05/20/24 08:30
Absolute Lymphs (auto) 0.7 10^3/uL (1.2-3.4) L 05/20/24 08:30
Absolute Monos (auto) 1.7 10^3/uL (0.1-0.6) H 05/20/24 08:30
Absolute Basos (auto) 0.1 10^3/uL (0-0.2) 05/20/24 08:30
Immature Gran % 1.1 % (0-0.5) H 05/20/24 08:30
Neutrophils % 88.2 % (42.2-75.2) H 05/20/24 08:30
Lymphocytes % 3.0 % (20.5-51.1) L 05/20/24 08:30
Monocytes % 7.1 % (1.7-9.3) 05/20/24 08:30
Eosinophils % 0.2 % (0-6) 05/20/24 08:30
Basophils % 0.4 % (0-2) 05/20/24 08:30
Lactic Acid Cancelled 05/20/24 13:00
Ur Squamous Epith Cells 0-2 /LPF (Few) 05/20/24 10:26
Microbiology Results
Micro:
05/20/24 10:26 Urine Culture - Pending
Urine
05/20/24 09:27 Blood Culture - Pending
Blood/Venous
05/20/24 09:07 Blood Culture - Pending
Blood/Venous
05/20/24 CXR Moderate cardiomegaly with likely trace bilateral pleural effusions.
Assessment / Plan
# BLE lymphedema exacerbation - suspect CHF
# BLE cellulitis with infected wounds
# Leukocytosis
- Wrote wound orders pending Wound RN evaluation Wednesday.
- DC Vancomycin
-Continue cefepime for now
- AUGUSTUS compression
- Trend WBC
# CLIFF
-Renally adjusted abx
- Nephrology following
# New onset Afib
# Suspected acute CHF
-ECHO result pending
-Cardiology following
# Conditions PRODUCTION ILLUSTRATOR
Diabetes mellitus
Asthma
Dyslipidemia
Hypertension
Class III obesity BMI 42
Bilateral lower extremity lymphedema - goes to [facility]hed[facility]
[2024-05-20] MEDS: NOVOLOG FLEXPEN-LOW RESISTANCE 1 UNITS SC (17:54)
[2024-05-20] MEDS: SODIUM BICARBONATE 1075 MEQ IV (20:04)
[2024-05-20 20:32] LABS: Calcium 8.1 mg/dl (8.4-10.2); Carbon Dioxide 18 mmol/L (22-30); Chloride 96 mmol/L (98-107); Estimated Creatinine Clearance 18 ml/min; Glucose 195 mg/dl (70-99); Potassium 4.9 mmol/L (3.5-5.1); Sodium 128 mmol/L (135-145); eGFR 11.95
[2024-05-20 20:45] LABS: Blood Urea Nitrogen 127 mg/dl (9-20)
[2024-05-20] MEDS: NSS 250 IV (23:00)
[2024-05-20 23:50] LABS: Glucose - Point of Care 134 mg/dl (70-99)
[2024-05-21] VITALS (61 sets, daily range): BP systolic 78–134; BP diastolic 50–90; BMI 42.9
[2024-05-21] MEDS: LEVOPHED 250 IV (03:18)
[2024-05-21 03:33] LABS: APTT 48.5 Sec (23.4-35.0)
--- NOTE | 2024-05-21 05:47 | PTCARENOTE ---
Assumed care of pt at aprox 2300 last night. Afib on monitor, controlled. BP remains low after 250 NS bolus. CONTACT LENS LATHE OPERATOR notified and levo ordered and started. Pt has heparin drip currently at 1400 unit per hour. Pt with echevarria from this admission draining
dark tea colored urine. Pt denies any pain. Instructed to ring for assistance.
[2024-05-21] MEDS: SODIUM BICARBONATE 1075 MEQ IV ×3 (07:12→23:32)
--- NOTE | 2024-05-21 07:28 | W.PN.HOSP.TC ---
Addendum entered and electronically signed by Luz Collazo MD 05/21/24 15:14:
Seen earlier. Late documentation
I saw and evaluated the patient. I reviewed the resident�s note and agree with findings and plan as documented in the resident�s note except for changes in my documentation
On examination awake and alert
Cardiovascular system irregular S1-S2
Chest decreased breath sounds bilaterally
Abdomen soft and nontender
Bilateral lower extremity with weeping small wounds and skin discoloration bilaterally. Chronic venous stasis changes with skin thickening
# Sepsis
Likely source cellulitis-possibly strep
Cannot rule out UTI blood cultures pending.
Continue cefepime
Wound care
Venous Dopplers negative for DVT
Wound care and compression therapy with Justus bandages. Discussed with nursing this morning
White count improving
# Hypotension-treat as septic shock-continue IV fluids and also pressors to keep MAP over 65 mmHg. PICC line ordered
VQ scan tomorrow
# Acute kidney injury with metabolic acidosis and hyperkalemia
Possibly prerenal secondary to poor p.o. intake. Was also using ibuprofen 3 days prior to admission
3+ albumin noted. FENA low
Both And [place] metabolic acidosis
Abraham catheter placed in the ER-continue
Hold valsartan, NSAIDs, Hydrochlorothiazide, Potassium, Torsemide, Metformin and also atenolol
Hyperkalemia resolved
Intake output charting
IV fluids with bicarb for now
proBNP 10,600
Very Difficult to assess fluid status.
Nephrology consulted.
# Hyponatremia -getting better-type unclear. Volume assessment difficult but probably intravascularly volume depleted. Possibly an element of prerenal and also SIADH given hypotension. Since he needs fluids continue with IV fluids for now
# New onset atrial fibrillation
Heparin drip started in the ER
Hold atenolol given renal failure
Consider metoprolol if heart rate goes up
Echo 325-vigorous LV systolic function with moderate concentric LVH. Left ventricular ejection fraction 65 to 70%. Mildly enlarged RV with low normal RV systolic function. Biatrial dilatation. Trace MR. Trace TR. Pulmonary artery pressure 41
mmHg. IVC is dilated and does not collapse. Trivial pericardial effusion
Cardiology consulted
# Diabetes-hemoglobin A1c 7.1 .Hold metformin. Accu-Cheks and sliding scale coverage
# Alcohol use disorder drinks 3 glass of Vodka every day. MSAS and thiamine replacement
# Hypertension-hold valsartan, hydrochlorothiazide, amlodipine and atenolol. Blood pressure on the softer side
# Hyperlipidemia-continue atorvastatin
# Obesity with a BMI of 41
# Hypoalbuminemia
# Chronic lymphedema bilateral lower extremities
# DVT prophylaxis- Heparin
# Full code
D/W RN
Spoke to and update in detail. Updated regarding his renal failure, fluid status, A-fib, hypotension, alcohol use.
time spent over 50 min
Original Note:
Today's Communication/Plan
-
Wean off of Levophed as tolerated
Continue IV fluids
Continue IV cefepime
Bilateral lower extremity ultrasound
Assessment / Plan
Assessment / Plan
73-year-old male with known past medical history of hypertension, hyperlipidemia, lymphedema bilateral LE and ose-rgyrimx-vkwshlmut diabetes presented in the emergency department with concerns of not feeling well for last few weeks. Found to have
sepsis, CLIFF, new onset A-fib, purulent discharge from bilateral lower extremity lymphedema
ECHO: CONCLUSIONS
Vigorous left ventricular systolic function with moderate concentric left
ventricular hypertrophy
Left ventricular ejection fraction visually estimated 65-70%
Mildly in enlarged right ventricle with low normal RV systolic function
Biatrial dilatation
Trace-mild mitral regurgitation
Trileaflet sclerotic aortic valve without stenosis or regurgitation
Trace tricuspid regurgitation
Estimated pulmonary artery pressure of 41 mmHg assuming a right atrial pressure
of 15 mmHg. The IVC is dilated and does not collapse.
Prominent anterior fat pad present. Trivial pericardial effusion without
evidence of hemodynamic compromise.
No prior study available for comparison
# Sepsis -likely due to UTI versus bilateral LE cellulitis
-Blood culture pending
-UA consistent with UTI; urine culture pending
-Wound consult; potentially will need compression once oozing stops
-ID following; Vanco discontinued
-Continue empiric IV cefepime
-On Levophed; started overnight due to hypotension goal is to maintain SBP greater than 90
# CLIFF with hyperkalemia
# Hyponatremia; corrected sodium 121
# Metabolic acidosis; anion gap and non-anion gap with delta of 0.7
-FENA <1
-Abraham in place
-Nephro following; at high risk of needing HD
-Sodium bicarb based IV fluid
-beta-hydroxybutyrate 0.86
-Avoid nephrotoxins
-Hold home potassium chloride: Lokelma as needed
# New onset atrial fibrillation
# Cardiomegaly
-Continue heparin drip
-proBNP 08970
-Chest x-ray with cardiomegaly, bedside echo in the ER shows no pericardial effusion however massive cardiomegaly
-cardiology following
-Echo as above
# Lymphedema; bilateral LE
-Purulent on exam
-Wound consult
-Potentially need compression therapy
-Venous Doppler bilateral lower extremity
# Alcohol use disorder
-Drinks 3 vodka daily
-Check serum alcohol level
-MSAS
-Check mag
# Diabetes mellitus type 2
-Check A1c
-Insulin sliding scale
-Hold metformin
# Essential hypertension
-Hold valsartan/HCTZ, atenolol, amlodipine
# Hyperlipidemia
-Continue atorvastatin
# Obesity with BMI of 41
# Hypoalbuminemia
CODE STATUS: Full code
Diet: Diabetic plus renal
Anticipated Discharge: > 48 hours
Subjective/Interval History
-
Date of Service: May 21, 2024
Afebrile. Blood pressure on the lower side; on Levophed. Offers no new complaints
Objective Data
-
Labs:
Laboratory Results
05/20/24 05/21/24 05/21/24
20:01 00:31 01:52
WBC
Hgb
Hct
Plt Count
APTT Cancelled 48.5 H
Sodium 128 L
Potassium 4.9
Chloride 96 L
Carbon Dioxide 18 L
BUN 127 H*
Creatinine 4.8 H*
Glucose 195 H
Calcium 8.1 L
Total Bilirubin
AST
ALT
Alkaline Phosphatase
05/21/24 05/21/24
06:00 09:45
WBC Pending
Hgb Pending
Hct Pending
Plt Count Pending
APTT Pending
Sodium Pending
Potassium Pending
Chloride Pending
Carbon Dioxide Pending
BUN Pending
Creatinine Pending
Glucose Pending
Calcium Pending
Total Bilirubin Pending
AST Pending
ALT Pending
Alkaline Phosphatase Pending
Vital Signs:
Vital Signs
Temp Pulse Resp BP Pulse Ox
98.5 F 95 19 85/52 92
05/21/24 04:31 05/21/24 07:00 05/21/24 07:00 05/21/24 07:00 05/21/24 07:00
I&O
05/20/24 05/21/24 05/22/24
05:59 06:59 06:59
Intake Total
Output Total 150 / 150
Balance -150 / -150
Review of Systems
-
History Source: Patient
Constitutional: Denies Fever
Respiratory: Denies Trouble Breathing
Cardiac: Denies Chest Pain
Abdomen/GI: Denies Abdominal Pain
Musculoskeletal: Reports Muscle Weakness
Physical Exam
-
General: No Apparent Distress and Obese
HEENT: Moist Mucous Membranes
Respiratory: Non Labored Respirations and Decreased Breath Sounds
Cardiac: S1/S2 and Irregular Rhythm
GI: Soft and Nontender
Musculoskeletal: Edema, Right Lower Extrem, Edema, Left Lower Extrem and Other (b/l LE weeping small wounds and skin discoloration bilaterally)
Neuro: Awake, Alert and Oriented
Data Reviewed
-
Labs: Labs Reviewed by me, Discussed with Physician and Discussed with Patient
[2024-05-21 09:28] LABS: Glucose - Point of Care 128 mg/dl (70-99)
[2024-05-21 10:37] LABS: Hematocrit 29.5 % (39.0-52.0); Hemoglobin 10.2 g/dL (13.0-18.0); Mean Corp Hgb Conc. 34.6 g/dL (33.0-37.0); Mean Corpuscular Hgb 27.3 pg (27.0-31.0); Mean Corpuscular Volume 78.9 fL (80.0-94.0); Mean Platelet Volume 10.2 fL (7.4-10.4); Platelet Count 390 10^3/uL (130-400); Red Blood Cell Count 3.74 10^6/uL (4.70-6.10); Red Cell Dist. Width 15.3 % (11.5-14.5); White Blood Cell Count 17.2 10^3/uL (4.8-10.8)
[2024-05-21 10:42] LABS: APTT 45.2 Sec (23.4-35.0)
[2024-05-21] MEDS: HEPARIN 25000 UNITS/250 ML IV (10:43)
[2024-05-21] MEDS: MAXIPIME 1000 MG IV (10:44)
[2024-05-21 10:49] LABS: Vancomycin Random 10.1 ug/ml
[2024-05-21 10:54] LABS: ALT (SGPT) 21 U/L (0-50); AST (SGOT) 43 U/L (17-59); Albumin 2.5 g/dl (3.5-5.0); Alkaline Phosphatase 195 U/L (38-126); Calcium 7.9 mg/dl (8.4-10.2); Carbon Dioxide 18 mmol/L (22-30); Chloride 96 mmol/L (98-107); Estimated Creatinine Clearance 20 ml/min; Glucose 199 mg/dl (70-99); Magnesium 2.2 mg/dl (1.6-2.3); Potassium 4.7 mmol/L (3.5-5.1); Sodium 130 mmol/L (135-145); Total Bilirubin 1.1 mg/dl (0.2-1.3); Total Protein 5.5 g/dl (6.3-8.2); eGFR 14.03
[2024-05-21] MEDS: LIPITOR 20 MG PO (10:56)
[2024-05-21] MEDS: STERILE WATER FOR INJECTION 10 ML IV (10:57)
--- NOTE | 2024-05-21 11:25 | W.PN.NEPH.PH ---
Today's Communication / Plan
-
cont IVF
follow labs
Assessment/Plan
-
IMP:
Possible sepsis with bilateral lower extremity cellulitis
Josephine-Baseline creatinine of 1. 16 March 2023
Hyperkalemia
Significant azotemia
Anion gap metabolic acidosis
Hyponatremia
new A. fib
Type 2 diabetes
Lymphedema
Hypertension
Hyperlipidemia
Asthma
Obesity
Hypoalbuminemia
heart murmur
Plan:
A/w abd pain, FTT
JOSEPHINE-suspect prerenal in setting of sepsis and poor po intake +NSAIDs
cr and UOP improving slowly , UA bacteruria but 3+ alb-Fena low, U PCR 260mg/gm of cr
check renal US, keep echevarria
hypotension on pressors to keep MAP>65
difficult to assess fluid status, would continue IVF at this time
echo noted, normal EF, IVC dilated
hyperkalemia-resolved
met acidosis-gap, L acid normal. cont bicarb IVF
no emergent indication of HD however at high risk if worsens
hyponatremia-improving
dose abx renally , avoid nephrotoxins , hold diuretics, ARB, metformin
d/w pt
CC time spent 35min
-
-
Date of Service: May 21, 2024
CC / HPI / ROS
-
Chief Complaint:
JOSEPHINE
History of Present Illness:
cr slowly improving to 4.2
UOP improving, sodium better at 130
k normal, bicarb 18 no change
on levo for hypotension
WBC improving to 17.2k
on heparin gt for afib
Review of Systems:
no cp or sob at rest
no fever
Labs
-
Labs:
WBC 17.2 10^3/uL (4.8-10.8) H 05/21/24 10:19
RBC 3.74 10^6/uL (4.70-6.10) L 05/21/24 10:19
Hgb 10.2 g/dL (13.0-18.0) L 05/21/24 10:19
Hct 29.5 % (39.0-52.0) L 05/21/24 10:19
Plt Count 390 10^3/uL (130-400) 05/21/24 10:19
Sodium 130 mmol/L (135-145) L 05/21/24 10:19
Potassium 4.7 mmol/L (3.5-5.1) 05/21/24 10:19
Chloride 96 mmol/L (98-107) L 05/21/24 10:19
Carbon Dioxide 18 mmol/L (22-30) L 05/21/24 10:19
Creatinine 4.2 mg/dL (0.7-1.3) H* 05/21/24 10:19
eGFR 14.03 05/21/24 10:19
Glucose 199 mg/dl (70-99) H 05/21/24 10:19
Calcium 7.9 mg/dl (8.4-10.2) L 05/21/24 10:19
Ush-N-Bmjsmlrtkgt Pept 85230 pg/ml 05/20/24 09:07
Albumin 2.5 g/dl (3.5-5.0) L 05/21/24 10:19
Physical Exam
-
Vital Signs:
Vital Signs
Temp Pulse Resp BP Pulse Ox
98.5 F 95 19 85/52 92
05/21/24 04:31 05/21/24 07:00 05/21/24 07:00 05/21/24 07:00 05/21/24 07:00
Cardiovascular:: Irregular rate and rhythm (murmur)
Respiratory:: Bilateral: CTA (anteriorly)
Lung Excursion:: Normal
Abdomen:: Nontender and Soft
Extremity Edema:: +3: Bilateral:
Echevarria Catheter: Yes
[2024-05-21 11:43] LABS: Blood Urea Nitrogen 131 mg/dl (9-20)
--- NOTE | 2024-05-21 11:43 | W.PN.CARDCBS ---
Today's Communication / Plan
-
Continue hemodynamic support
IV fluid resuscitation as per nephrology
Continue pressors as needed to keep maps greater than 65
Continue IV heparin
Impression / Plan
-
Rn Document Improvement: None
Impression:
Atrial fibrillation, new diagnosis
Sepsis with leukocytosis, hypertension with bilateral cellulitis and possible UTI
Acute renal failure with metabolic acidosis and hyperkalemia
Volume overload with component of heart failure with preserved ejection fraction in the setting of acute renal failure
Hyponatremia
Morbid obesity, suspect COLT
Type 2 diabetes mellitus
Hyperlipidemia
Hypertension
Lymphedema
Alcohol use disorder
Poor self care
2D echocardiogram done at bedside in ED: Normal left ventricular size and systolic function with a EF estimated around 60% with moderate LVH. Aortic sclerosis without aortic stenosis or insufficiency. Mild mitral regurgitation. Trace tricuspid
regurgitation. Biatrial dilatation.Right ventricle mildly enlarged with overall low normal RV systolic function. IVC is dilated and does not collapse.No pericardial effusion
Plan:
Atrial fibrillation, new diagnosis however suspect there may be some chronicity as he is rate controlled and asymptomatic
-Rate control strategy�currently hypotensive on pressors; rates relatively controlled
-IV Heparin gtt
-Check TSH
Sepsis with leukocytosis, hypertension with bilateral cellulitis
-IV fluid resuscitation and pressor support
-Preliminary blood culture no growth to date; urine culture no growth
-Antibiotics per ID
-Lower extremity bilateral venous duplex 11/2024: No DVT. Bilateral peroneal and posterior tibial veins currently visualized. 6.1 X3.3X 4.3 cm solid lesion with internal vascularity in the proximal right thigh with differential including suspicious
lymph node or soft tissue neoplasm-defer to primary service for further evaluation
-Wound care
Acute renal failure with metabolic acidosis and hyperkalemia/Hyponatremia
-Likely related to dehydration, continued alcohol use, and antihypertension while taking his medications which include valsartan/hydrochlorothiazide, potassium, amlodipine, atenolol and metformin. Additionally he was taking dxtm-xha-axfkelc NSAIDs
-Nephrology management reviewed
-Some improvement in labs/renal function
-Maintain Abraham
-Continue pressor support to keep MAP greater than 65
-Renal ultrasound pending
-2D echocardiogram with preserved LV systolic function and no significant pericardial effusion
-will continue IV fluid but monitor volume status closely as he will likely eventually need Lasix
-Hold antihypertensive therapy and metformin
Volume overload with component of heart failure with preserved ejection fraction in the setting of acute renal failure
-Continue IV fluids for now although he will likely eventually need Lasix
-Discussed concern for possible thromboembolic disease with hospitalist given patient's immobility and low normal RV systolic function with mild enlargement. Although less likely with lower extremity Dopplers with no definite evidence of DVT will
continue IV heparin (AF). Unable to obtain CTA of the chest given acute renal insufficiency and I do not believe that he would perform a VQ scan adequately at this time
-High suspicion that he has untreated sleep apnea which will eventually need to be evaluated
Progress Note - Rn Document Improvement
Subjective
Date of Service: May 21, 2024
Seen and examined in ED bed 26. Overall he is more awake and conversant today. Denies chest pain or pressure. Denies shortness of breath at rest
Objective
Labs:
05/21/24 10:19
05/21/24 10:19
Labs
Hgb 10.2 g/dL (13.0-18.0) L 05/21/24 10:19
Hct 29.5 % (39.0-52.0) L 05/21/24 10:19
Plt Count 390 10^3/uL (130-400) 05/21/24 10:19
APTT 45.2 Sec (23.4-35.0) H 05/21/24 10:19
Sodium 130 mmol/L (135-145) L 05/21/24 10:19
Potassium 4.7 mmol/L (3.5-5.1) 05/21/24 10:19
BUN 127 mg/dl (9-20) H* 05/20/24 20:01
Creatinine 4.2 mg/dL (0.7-1.3) H* 05/21/24 10:19
Glucose 199 mg/dl (70-99) H 05/21/24 10:19
Troponins
05/20/24
09:07
Troponin I < 0.012
Vital Signs and I&O:
Vital Signs
Temp Pulse Resp BP Pulse Ox
98.5 F 95 19 85/52 92
05/21/24 04:31 05/21/24 07:00 05/21/24 07:00 05/21/24 07:00 05/21/24 07:00
Vital Signs
Temp Pulse Resp BP Pulse Ox
98.5 F 95 19 85/52 92
05/21/24 04:31 05/21/24 07:00 05/21/24 07:00 05/21/24 07:00 05/21/24 07:00
Intake & Output
05/19/24 05/20/24 05/21/24 05/22/24
05:59 05:59 06:59 06:59
Intake Total
Output Total 150 / 150
Balance -150 / -150
Physical Exam
Physical Exam
General: 73-year-old gentleman who appears older than stated age
HEENT: mmm
Respiratory: Decreased breath sounds bilaterally with fine crackles right base
Cardiac: Distant heart sounds. Irregularly irregular. Positive S1-S2. No murmurs or rubs
GI: Obese, soft. Nontender. Positive bowel sounds
Ext: Lymphedema with chronic venous stasis changes and skin thickening. Malodorous weeping wounds bilaterally.
[2024-05-21 12:58] LABS: Glucose - Point of Care 212 mg/dl (70-99)
[2024-05-21 13:05] LABS: Glycohemoglobin (HgbA1c) 7.1 % (4.0-5.6)
[2024-05-21] MEDS: DAKIN'S SOLUTION 0.25% 1/2 STRENGTH 473 ML TOPICAL (14:45)
--- NOTE | 2024-05-21 15:19 | PTCARENOTE ---
Received patient on transfer from ED holding with levophed infusing at 4mcg/min, heparin infusing at 1600units/hr and 1/2NSS with 75meq bicarb infusing at 100ml/hr and echevarria catheter draining ehsan. Initial order for levophed was for SBP; physician
changed parameters to keep MAP>65. Able to titrate to current 3mcg/min. Patient with copious amount of thick yellow/ybarra drainage from b/l legs; very odorous. Both legs on blue pad. Black hair noted throughout wounds; patient states he has 2 black
dogs. Both legs cleansed with NSS and dakins, non-adherent dressings applied and covered with abd pads; both legs wrapped in covidians d/t large amount of copious drainage. WOC consult previously entered. Miconazole powder ordered per protocol.
Echevarria care completed. CHG bath completed. Oral care with suction toothbrush completed and dentures soaking.
Per report, patient's blood sugar prior to lunch was 199 and ED RN stated she administered 1unit insulin for coverage. Neither breakfast nor lunch pre-meal insulins were documented. Next accu check due prior to dinner.
Patient ordered PICC line. VAT RN up to place but stated he will place midline.
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 He states he has difficulty taking care of himself. He states he does drink approximately 4-5 alcoholic drinks/day; MSAS =2 for HR. This nurse
placed nursing level case management consult.
Family at bedside.
--- NOTE | 2024-05-21 15:35 | VATNOTE ---
PICC order noted for levophed infusion. After speaking with PCN, picc placement held at this time since levophed is being actively weaned. VAT to follow.
[2024-05-21] MEDS: DESENEX/MITRAZOL/ZEASORB 1 APPLIC TOPICAL (16:20)
[2024-05-21] MEDS: NOVOLOG FLEXPEN-LOW RESISTANCE 2 UNITS SC (16:21)
[2024-05-21 16:25] LABS: Glucose - Point of Care 218 mg/dl (70-99)
--- NOTE | 2024-05-21 16:31 | W.PN.ID1 ---
Date of Service
Date of Service: May 21, 2024
Today's Communication
Continue cefepime
Assessment / Plan
# BLE lymphedema stage 3 with exacerbation - suspect HFpEF
# BLE cellulitis with infected wounds
# Leukocytosis - improving
# Hypotension
- pt was compliant with compression up until 1 month prior to admission
- wound orders ordered pending Wound RN evaluation Wednesday.
-blood cx neg to date.
-Ucx neg.
-Continue cefepime d2
- AUGUSTUS compression
- Trend WBC
# CLIFF - improved today
-Renally adjusted abx
- Nephrology following
# Afib
# Suspected acute CHF
-Cardiology following
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
Diabetes mellitus
Asthma
Dyslipidemia
Hypertension
Class III obesity BMI 42
Bilateral lower extremity lymphedema
Chief Complaint
-: Cellulitis
Subjective / Review of Systems
Hypotensive last night. No new symptoms today.
Vital Signs / Physical Exam
Vital Signs
Vital Signs
Temp Pulse Resp BP Pulse Ox
98.4 F 106 21 109/50 96
05/21/24 13:50 05/21/24 15:26 05/21/24 15:26 05/21/24 15:26 05/21/24 16:07
Physical Exam
Constitutional: Acutely Ill
Eyes: No Conjunctival Hemorrhage and Sclera Anicteric
Cardiovascular: Irregular Rate and S1/S2
Pulmonary: Clear
Gastrointestinal: Soft, Non Tender, Non Distended and Normal Bowel Sounds
Genito-Urinary: Negative CVA Tenderness
Extremities: Edema (BLE lymphedema)
Wound: Other (BLE dressings in place)
Neurological: AO x 3
Objective Data
Lab Data
Lab Results
05/21/24 10:19
05/21/24 10:19
APTT 45.2 Sec (23.4-35.0) H 05/21/24 10:19
Estimated Creat Clear 20 ml/min 05/21/24 10:19
Lactic Acid Cancelled 05/20/24 13:00
Total Bilirubin 1.1 mg/dl (0.2-1.3) 05/21/24 10:19
AST 43 U/L (17-59) 05/21/24 10:19
ALT 21 U/L (0-50) 05/21/24 10:19
Alkaline Phosphatase 195 U/L (38-126) H 05/21/24 10:19
Most recent labs reviewed.
Micro Results:
05/20/24 09:27 Blood Culture - Preliminary
Blood/Venous No Growth in 24 hours- Final report to follow
05/20/24 10:26 Urine Culture - Final
Urine NO GROWTH
05/20/24 09:07 Blood Culture - Preliminary
Blood/Venous No Growth in 24 hours- Final report to follow
05/20/24 CXR Moderate cardiomegaly with likely trace bilateral pleural effusions.
--- NOTE | 2024-05-21 16:33 | PTCARENOTE ---
Wound care completed before new orders went in by Dr Booth. Discussed with her when she was on unit; ok to follow for next change or when seen by WOC.
Attempted to place foam on patient's sacrum and apply miconazole powder; patient refused to turn stating he's been through a lot today. He did allow powder to be placed b/l groin, abdominal folds, under b/l breasts.
--- NOTE | 2024-05-21 17:39 | PTCARENOTE ---
Patient due for flomax, renvela, proscar and toprol xl; he is currently on bipap and unable to take po. BP 121/55, HR 50s. Remains confused; sleeping. Dr Kwon notified via TT; ok to hold for now. 1:1 maintained.
[2024-05-21 19:00] LABS: APTT 146.9 Sec (23.4-35.0)
[2024-05-21] MEDS: NOVOLOG FLEXPEN-LOW RESISTANCE SC ×2 (19:41)
[2024-05-21] MEDS: DESENEX/MITRAZOL/ZEASORB TOPICAL (20:14)
[2024-05-21 22:40] LABS: Glucose - Point of Care 169 mg/dl (70-99)
[2024-05-22] VITALS (26 sets, daily range): BP systolic 90–125; BP diastolic 55–78; BMI 42.4
[2024-05-22] MEDS: HEPARIN 25000 UNITS/250 ML IV ×2 (03:01→20:13)
--- NOTE | 2024-05-22 03:18 | PTCARENOTE ---
No acute events overnight. BPs remained stable off the levo. Continues on IVF and heparin gtt. Patient stated that he feels 'a lot better.' TO be seen by wound care for extensive leg wounds and schedule for lung v/q scan today.
[2024-05-22 03:22] LABS: Hematocrit 28.4 % (39.0-52.0); Hemoglobin 9.7 g/dL (13.0-18.0); Mean Corp Hgb Conc. 34.2 g/dL (33.0-37.0); Mean Corpuscular Hgb 27.1 pg (27.0-31.0); Mean Corpuscular Volume 79.3 fL (80.0-94.0); Platelet Count 318 10^3/uL (130-400); Red Blood Cell Count 3.58 10^6/uL (4.70-6.10)
[2024-05-22 03:31] LABS: APTT 84.2 Sec (23.4-35.0)
[2024-05-22 03:49] LABS: Calcium 7.9 mg/dl (8.4-10.2); Carbon Dioxide 22 mmol/L (22-30); Chloride 98 mmol/L (98-107); Estimated Creatinine Clearance 26 ml/min; Glucose 134 mg/dl (70-99); Potassium 4.1 mmol/L (3.5-5.1); Sodium 130 mmol/L (135-145); eGFR 18.73
[2024-05-22 04:00] LABS: Blood Urea Nitrogen 119 mg/dl (9-20)
--- NOTE | 2024-05-22 07:46 | VATNOTE ---
Patient remains off Levophed infusion since yesterday evening. Will hold PICC line placement.
[2024-05-22 08:04] LABS: Glucose - Point of Care 119 mg/dl (70-99)
[2024-05-22] MEDS: NOVOLOG FLEXPEN-LOW RESISTANCE SC (08:31)
--- NOTE | 2024-05-22 09:04 | W.PN.CARDCBS ---
Today's Communication / Plan
-
Cont rate control strategy
IV Heparin and eventual oral anticoagulation
IVF as per nephrology
Impression / Plan
-
.
Scientific Investigator: None, initially seen by Dr Vargas
Impression:
Atrial fibrillation, new diagnosis
Sepsis with leukocytosis, hypertension with bilateral cellulitis and possible UTI
Acute renal failure with metabolic acidosis and hyperkalemia
Volume overload with component of heart failure with preserved ejection fraction in the setting of acute renal failure
Hyponatremia
Morbid obesity, suspect COLT
Type 2 diabetes mellitus
Hyperlipidemia
Hypertension
Lymphedema
Alcohol use disorder
Poor self care
2D echocardiogram done at bedside in ED: Normal left ventricular size and systolic function with a EF estimated around 60% with moderate LVH. Aortic sclerosis without aortic stenosis or insufficiency. Mild mitral regurgitation. Trace tricuspid
regurgitation. Biatrial dilatation.Right ventricle mildly enlarged with overall low normal RV systolic function. IVC is dilated and does not collapse.No pericardial effusion
Plan:
>Atrial fibrillation, new diagnosis however suspect there may be some chronicity as he is rate controlled and asymptomatic
-Cont rate control strategy, remains rate controlled
-Cont IV Heparin with eventual transition to oral anticoagulation
-Check TSH
>Sepsis with leukocytosis, hypertension with bilateral cellulitis
-Cont IVF resuscitation and pressor support
-Preliminary blood culture no growth to date; urine culture no growth
-Antibiotics per ID
>B/l Lymphedema
-Cont would care
-apparently pt was compliant with compression up until 1 month prior to admission
>Lower extremity bilateral venous duplex 05/21/2024: No DVT. Bilateral peroneal and posterior tibial veins currently visualized. 6.1 X3.3X 4.3 cm solid lesion with internal vascularity in the proximal right thigh with differential including
suspicious lymph node or soft tissue neoplasm
-defer to primary service for further evaluation
>Acute renal failure with metabolic acidosis and hyperkalemia/Hyponatremia
-Likely related to dehydration, continued alcohol use, and antihypertension while taking his medications which include valsartan/hydrochlorothiazide, potassium, amlodipine, atenolol and metformin, OTC NSAIDs
-Cont management as per nephrology
-Cr improving
-2D echocardiogram with preserved LV systolic function and no significant pericardial effusion
-Cont IVF but may need eventual diuresis
-Hold antihypertensive therapy and metformin
>outpt eval for COLT
Discussed with nursing.
Progress Note - Scientific Investigator
Subjective
Date of Service: May 22, 2024
pt seen and examined. Breathing better. No cp.
Objective
Labs:
05/22/24 02:48
05/22/24 02:48
Labs
Hgb 9.7 g/dL (13.0-18.0) L 05/22/24 02:48
Hct 28.4 % (39.0-52.0) L 05/22/24 02:48
Plt Count 318 10^3/uL (130-400) 05/22/24 02:48
APTT 84.2 Sec (23.4-35.0) H 05/22/24 02:47
Sodium 130 mmol/L (135-145) L 05/22/24 02:48
Potassium 4.1 mmol/L (3.5-5.1) 05/22/24 02:48
BUN 119 mg/dl (9-20) H* 05/22/24 02:48
Creatinine 3.3 mg/dL (0.7-1.3) H 05/22/24 02:48
Glucose 134 mg/dl (70-99) H 05/22/24 02:48
Troponins
05/20/24
09:07
Troponin I < 0.012
Vital Signs and I&O:
Vital Signs
Temp Pulse Resp BP Pulse Ox
99.6 F 98 19 98/62 93
05/22/24 03:00 05/22/24 05:00 05/22/24 05:00 05/22/24 05:00 05/22/24 05:00
Vital Signs
Temp Pulse Resp BP Pulse Ox
99.6 F 98 19 98/62 93
05/22/24 03:00 05/22/24 05:00 05/22/24 05:00 05/22/24 05:00 05/22/24 05:00
Intake & Output
05/20/24 05/21/24 05/22/24 05/23/24
05:59 06:59 06:59 06:59
Intake Total 1592 / 1592
Output Total 1750 / 1750
Balance -158 / -158
Physical Exam
Physical Exam
General: No acute distress, AAOX3
Neck: Negative JVD
Heart: Irregularly irregular, Negative S3 positive S1/S2, Negative S4, No murmur
Lungs: CTA b/l, negative wheezes/rales/rhonchi
Abd: Morbid obesity Positive BS, NT/ND, neg rebound/rigidity/guarding
Ext: Negative cyanosis/clubbing. +2-3 lymphedema
Skin: leg dressing c/d/i
Neuro: nonfocal
[2024-05-22] MEDS: DESENEX/MITRAZOL/ZEASORB 1 APPLIC TOPICAL ×2 (09:08→20:12)
[2024-05-22] MEDS: LIPITOR 20 MG PO (09:08)
[2024-05-22] MEDS: DAKIN'S SOLUTION 0.25% 1/2 STRENGTH 1 ML TOPICAL (09:10)
[2024-05-22] MEDS: SODIUM BICARBONATE 1075 MEQ IV (09:12)
--- NOTE | 2024-05-22 10:11 | W.PN.NEPH.PH ---
Today's Communication / Plan
-
follow BMP
Assessment/Plan
-
IMP:
Possible sepsis with bilateral lower extremity cellulitis
Josephine-Baseline creatinine of 1. 16 March 2023
Hyperkalemia
Significant azotemia
Anion gap metabolic acidosis
Hyponatremia
new A. fib
Type 2 diabetes
Lymphedema
Hypertension
Hyperlipidemia
Asthma
Obesity
Hypoalbuminemia
heart murmur
Plan:
follow BMP
change to IVF NSS
US ok
-
-
Date of Service: May 22, 2024
CC / HPI / ROS
-
Chief Complaint:
JOSEPHINE
History of Present Illness:
cr slowly improving to 3.3
Na stable at 130
k normal
BP better off pressors
WBC improving
on heparin gt for afib
Review of Systems:
no cp or sob at rest
no fever
Labs
-
Labs:
WBC 14.0 10^3/uL (4.8-10.8) H 05/22/24 02:48
RBC 3.58 10^6/uL (4.70-6.10) L 05/22/24 02:48
Hgb 9.7 g/dL (13.0-18.0) L 05/22/24 02:48
Hct 28.4 % (39.0-52.0) L 05/22/24 02:48
Plt Count 318 10^3/uL (130-400) 05/22/24 02:48
Sodium 130 mmol/L (135-145) L 05/22/24 02:48
Potassium 4.1 mmol/L (3.5-5.1) 05/22/24 02:48
Chloride 98 mmol/L (98-107) 05/22/24 02:48
Carbon Dioxide 22 mmol/L (22-30) 05/22/24 02:48
BUN 119 mg/dl (9-20) H* 05/22/24 02:48
Creatinine 3.3 mg/dL (0.7-1.3) H 05/22/24 02:48
eGFR 18.73 05/22/24 02:48
Glucose 134 mg/dl (70-99) H 05/22/24 02:48
Calcium 7.9 mg/dl (8.4-10.2) L 05/22/24 02:48
Jib-R-Xrhohcksagh Pept 32528 pg/ml 05/20/24 09:07
Albumin 2.5 g/dl (3.5-5.0) L 05/21/24 10:19
Physical Exam
-
Vital Signs:
Vital Signs
Temp Pulse Resp BP Pulse Ox
97.9 F 98 19 98/62 93
05/22/24 07:10 05/22/24 05:00 05/22/24 05:00 05/22/24 05:00 05/22/24 05:00
Cardiovascular:: Regular rate and rhythm
Respiratory:: Bilateral: CTA
Lung Excursion:: Normal
Abdomen:: Nontender and Soft
Bowel Sounds:: Normal
Extremity Edema:: None: Bilateral:
--- NOTE | 2024-05-22 10:27 | WOUNDNOTE ---
[facility] RN note: Patient admitted with sepsis, CLIFF. Patient lives with his . He has been to lymphedema clinic in past and has compression pumps at home.
See H&P for complete history.
PMH: DM, asthma, HTN, obesity, lymphedema, ETOH use disorder.
Wound Location and type/assessment: Patient admitted with: coccyx stage 2 pressure injuries along with MASD. He sleeps in a recliner chair at home. Bilateral LE many scattered dermal pink open areas and a couple subcutaneous calf ulcers with
jamil/brown slough, large amount of purulent yellow drainage with odor. +2-3 LE edema. +Pedal pulses. +Hemosiderosis.
Appetite: hungry for breakfast. Patient cannot turn self in bed.
Pressure redistribution devices in place: Centrella Max air bed. Heels off bed with pillows. He can lift his legs slightly off the bed.
Plan: Patient seen with Dr. Booth. Clarified can switch to 1/4 strength Dakin's however can finish 1/2 strength Dakin's 1st if patient tolerates. Dressings changed with help from KEO Goncalves. Dr. Booth had taken wound cultures. Heels off bed with
pillows. t/c SPD and ordered bariatric air chair cushion. Discussed with KEO Goncalves.
Confirm orders with Dr. Booth and discussed with Dr. Collazo.
Care plan to be updated and will follow as needed.
Note to case management of equipment requested for discharge: VN and Hospital bed with air mattress if patient accepts at home. Air mattress if goes to rehab/SNF.
Recommend follow up at wound care center upon discharge.
--- NOTE | 2024-05-22 10:30 | WOUNDNOTE ---
[facility] RN note: Patient admitted with sepsis, CLIFF. Patient lives with his . He has been to lymphedema clinic in past and has compression pumps at home.
See H&P for complete history.
PMH: DM, asthma, HTN, obesity, lymphedema, ETOH use disorder.
Wound Location and type/assessment: Patient admitted with: coccyx stage 2 pressure injuries along with MASD. He sleeps in a recliner chair at home. Bilateral LE many scattered dermal pink open areas and a couple subcutaneous calf ulcers with
ybarra/brown slough, mod-large amount of purulent yellow drainage with odor. +2-3 LE edema. +Pedal pulses. +Hemosiderosis.
Appetite: hungry for breakfast. Patient cannot turn self in bed.
Pressure redistribution devices in place: Centrella Max air bed. Heels off bed with pillows. He can lift his legs slightly off the bed.
Plan: Patient seen with Dr. Booth. Clarified can switch to 1/4 strength Dakin's however can finish 1/2 strength Dakin's 1st if patient tolerates. Dressings changed and knee high Justus wraps applied with help from KEO Goncalves. Dr. Booth had taken wound
cultures. Heels off bed with pillows. t/c SPD and ordered bariatric air chair cushion. Discussed with KEO Goncalves.
Confirm orders with Dr. Booth and discussed with Dr. Collazo who viewed wound photos.
Care plan to be updated and will follow as needed.
Note to case management of equipment requested for discharge: VN and Hospital bed with air mattress if patient accepts at home. Air mattress if goes to rehab/SNF.
Recommend follow up at wound care center upon discharge.
--- NOTE | 2024-05-22 10:35 | WOUNDNOTE ---
L CALF (LATERAL POSTERIOR)
--- NOTE | 2024-05-22 10:35 | WOUNDNOTE ---
COCCYX/BUTTOCKS/SACRUM (with photo flash)
--- NOTE | 2024-05-22 10:36 | WOUNDNOTE ---
SACRAL/COCCYX CREASE
--- NOTE | 2024-05-22 10:37 | WOUNDNOTE ---
R CALF (LATERAL POSTERIOR)
--- NOTE | 2024-05-22 10:38 | WOUNDNOTE ---
LLE (ANTERIOR LATERAL)
--- NOTE | 2024-05-22 10:55 | W.PN.ID1 ---
Date of Service
Date of Service: May 22, 2024
Today's Communication
Continue cefepime and wound care.
Assessment / Plan
# BLE lymphedema with exacerbation - suspect HFpEF
# BLE cellulitis with infected wounds
# Leukocytosis - improving
# Hypotension
- pt was compliant with compression up until 1 month prior to admission
-blood cx neg to date.
-Ucx neg.
- Follow wound cx's
-Appreciate Wound RN recs.
-Continue cefepime d3, dose re-adjusted based on improving renal function
- Trend WBC
# CLIFF - improving
- Nephrology following
# Afib
# Suspected acute CHF
-Cardiology following
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
Diabetes mellitus
Asthma
Dyslipidemia
Hypertension
Class III obesity BMI 42
Bilateral lower extremity lymphedema
Chief Complaint
-: Cellulitis
Subjective / Review of Systems
Overall feeling better.
Vital Signs / Physical Exam
Vital Signs
Vital Signs
Temp Pulse Resp BP Pulse Ox
97.9 F 98 19 98/62 93
05/22/24 07:10 05/22/24 05:00 05/22/24 05:00 05/22/24 05:00 05/22/24 05:00
Physical Exam
Constitutional: No Acute Distress and Comfortable
Eyes: No Conjunctival Hemorrhage and Sclera Anicteric
Cardiovascular: Irregular Rate and S1/S2
Pulmonary: Clear
Gastrointestinal: Soft, Non Tender and Non Distended
Extremities: Edema (BLE edema decreased) and Erythema (BLE erythema decreased)
Wound: Other (Shallow large wounds predominantly lateral to posterior legs bilaterally; decrease of previous thick yellow exudate)
Neurological: AO x 3
Objective Data
Lab Data
Lab Results
05/22/24 02:48
05/22/24 02:48
APTT 84.2 Sec (23.4-35.0) H 05/22/24 02:47
Estimated Creat Clear 26 ml/min 05/22/24 02:48
Lactic Acid Cancelled 05/20/24 13:00
Total Bilirubin 1.1 mg/dl (0.2-1.3) 05/21/24 10:19
AST 43 U/L (17-59) 05/21/24 10:19
ALT 21 U/L (0-50) 05/21/24 10:19
Alkaline Phosphatase 195 U/L (38-126) H 05/21/24 10:19
Most recent labs reviewed.
Micro Results:
05/20/24 09:27 Blood Culture - Preliminary
Blood/Venous No Growth in 48 hours- Final report to follow
05/20/24 09:07 Blood Culture - Preliminary
Blood/Venous No Growth in 48 hours- Final report to follow
05/20/24 10:26 Urine Culture - Final
Urine NO GROWTH
05/20/24 CXR Moderate cardiomegaly with likely trace bilateral pleural effusions.
Care Review
Plan reviewed with: Nurse (Tammie)
[2024-05-22] MEDS: STERILE WATER FOR INJECTION 10 ML IV ×2 (11:00)
[2024-05-22] MEDS: MAXIPIME 1000 MG IV (11:00)
[2024-05-22] MEDS: NSS 1000 IV ×2 (11:26→22:18)
[2024-05-22] MEDS: MORPHINE SULFATE 2 MG IV (12:30)
--- NOTE | 2024-05-22 12:38 | W.PN.HOSP.TC ---
Addendum entered and electronically signed by Luz Collazo MD 05/22/24 13:48:
I saw and evaluated the patient. I reviewed the resident�s note and agree with findings and plan as documented in the resident�s note except for changes in my documentation
Seen earlier today. Late documentation
Since then patient went down for VQ scan and he refused because of pain and came back up.
On examination this morning patient stated that he did not sleep last night
Cardiovascular system S1-S2 appreciated irregular
Chest decreased but clear to auscultation
Abdomen soft and nontender
Lower extremities were wrapped after wound care
# Sepsis
Likely source cellulitis-possibly strep
UTI ruled out
Blood cultures negative
Continue cefepime for lower extremity cellulitis
Wound care
Venous Dopplers negative for DVT
Wound care and compression therapy with Justus bandages. Discussed with nursing this morning
White count improving
# Hypotension-treat as septic shock-continue IV fluids and also pressors to keep MAP over 65 mmHg. PICC line ordered
VQ scan attempted today patient could not complete because of pain despite him receiving morphine prior to going down
We will try again tomorrow with more pain medicines
# Acute kidney injury with metabolic acidosis and hyperkalemia
Possibly prerenal secondary to poor p.o. intake. Was also using ibuprofen 3 days prior to admission
3+ albumin noted. FENA low
Both And [place] metabolic acidosis
Abraham catheter placed in the ER-continue
Hold valsartan, NSAIDs, Hydrochlorothiazide, Potassium, Torsemide, Metformin and also atenolol
Hyperkalemia resolved
Intake output charting
IV fluids
proBNP 10,600
Very Difficult to assess fluid status.
Eventually may need Lasix once renal function is better
Nephrology consulted.
# Hyponatremia -getting better-type unclear. Volume assessment difficult but probably intravascularly volume depleted. Possibly an element of prerenal and also SIADH given hypotension. Since he needs fluids continue with IV fluids for now
Off pressors
# New onset atrial fibrillation
Heparin drip started in the ER
Hold atenolol given renal failure
Consider metoprolol if heart rate goes up
Echo 325-vigorous LV systolic function with moderate concentric LVH. Left ventricular ejection fraction 65 to 70%. Mildly enlarged RV with low normal RV systolic function. Biatrial dilatation. Trace MR. Trace TR. Pulmonary artery pressure 41
mmHg. IVC is dilated and does not collapse. Trivial pericardial effusion
Cardiology consulted
# 6.1 X3.3X 4.3 cm solid lesion with internal vascularity in the proximal right thigh with differential including suspicious lymph node or soft tissue neoplasm- Outpatient work up
# Diabetes-hemoglobin A1c 7.1 .Hold metformin. Accu-Cheks and sliding scale coverage
# Alcohol use disorder drinks 3 glass of Vodka every day. MSAS and thiamine replacement
# Hypertension-hold valsartan, hydrochlorothiazide, amlodipine and atenolol. Blood pressure on the softer side
# Hyperlipidemia-continue atorvastatin
# Obesity with a BMI of 41
# Hypoalbuminemia
# Chronic lymphedema bilateral lower extremities
# DVT prophylaxis- Heparin
# Full code
D/W RN and wound care at bedside
Original Note:
Today's Communication/Plan
-
Continue Antibiotics. Has V/Q scan later today. Continued Wound care. Hopefully patient can get some sleep with the aid of Melatonin. Continue monitoring breathing and heart rhythm.
Assessment / Plan
Assessment / Plan
Asssessment:
73 year old male with a past medical history of hypertension, hyperlipidemia, bilateral lower extremity lymphedema and type 2 diabetes without use of Insulin presented in the emergency department with concerns of not feeling well for last few weeks.
Patient was found to have have sepsis, CLIFF, new onset A-fib, and purulent discharge from bilateral lower extremity lymphedema. His sepsis was thought to have been caused by Bilateral LE cellulitis versus concurrent UTI. Patient's breathing has
improved and is currently on room air. Patient was hypotensive requiring Levophed before but now his blood pressure is stabilizing and he is off the Levophed.
Plan:
05/20/24 CXR Moderate cardiomegaly with likely trace bilateral pleural effusions.
05/21/24: US Renal Only W/O Bladder: Subcentimeter nonobstructing bilateral renal calculi. No hydronephrosis.
05/21/24: US Periph Venous LOWER Ext Tez: No evidence of deep venous thrombosis bilaterally. Please note the bilateral peroneal and posterior tibial veins are not well visualized.
ECHO (05/20/24): CONCLUSIONS
Vigorous left ventricular systolic function with moderate concentric left
ventricular hypertrophy
Left ventricular ejection fraction visually estimated 65-70%
Mildly in enlarged right ventricle with low normal RV systolic function
Biatrial dilatation
Trace-mild mitral regurgitation
Trileaflet sclerotic aortic valve without stenosis or regurgitation
Trace tricuspid regurgitation
Estimated pulmonary artery pressure of 41 mmHg assuming a right atrial pressure
of 15 mmHg. The IVC is dilated and does not collapse.
Prominent anterior fat pad present. Trivial pericardial effusion without
evidence of hemodynamic compromise.
No prior study available for comparison
# Sepsis -likely due to Bilateral LE cellulitis versus UTI
-Blood culture- no growth, Wound cultures pending
-UA consistent with UTI; urine culture pending
-Continue with current wound care
-ID following, input appreciated
-Continue IV cefepime
-Patient now off of Levophed as blood pressure has been better controlled
-V/Q scan later today
# CLIFF with Metabolic Acidosis and Hyperkalemia
-Potassium has normalized
-Creatinine improving
-BP has been better off pressors
-Abraham in place, Renal US did not show any abnormality
-Nephro following, input appreciated
-Switched from Sodium bicarb based IV fluid to NSS IVF
-Avoid nephrotoxins
-Hold home potassium chloride: Lokelma as needed
#Coccyx stage 2 pressure injuries along with MASD
-developed these at homes as he sleeps in a recliner chair at home
-continue to be followed by wound care nurse
-follow up at wound care center upon discharge
-VN and Hospital bed with air mattress if home or air mattress if at rehab/SNF
-Continue wound care management while in the hospital
-Pain control as needed- will give Tramadol/Tylenol for pain
-One time dose of Morphine given to help patient get to V/Q scan
# New onset atrial fibrillation
-Continue heparin drip, eventually switch to oral coagulation
-proBNP 21688
-Chest x-ray with cardiomegaly, bedside echo in the ER shows no pericardial effusion however massive cardiomegaly
-cardiology following
-Echo as above
-Rate control strategy, continues to remain in A-Fib for now, but rate has been better controlled
-May add Metoprolol as blood pressure continues to improve
# Lymphedema; bilateral LE
-Purulence much better on exam, area erythema has also improved
-Continued Wound care
-Venous Doppler bilateral lower extremity did not show any DVT
#Insomnia
-Patient unable to sleep since admission he says
-Will give him some Melatonin tonight to see if it helps
-May try Benadryl as well
# Alcohol use disorder
-Drinks 3 vodka daily
-No serum alcohol detected
-Continue MSAS
-Magnesium in normal range
# Diabetes mellitus type 2
-7.1 A1c
-Insulin sliding scale
-Hold metformin
# Essential hypertension
-Hold valsartan/HCTZ, atenolol, amlodipine
# Hyperlipidemia
-Continue atorvastatin
# Obesity with BMI of 41
# Hypoalbuminemia
CODE STATUS: Full code
DVT Prophylaxis: Heparin
Anticipated Discharge: 24 - 48 hours
Subjective/Interval History
-
Date of Service: May 22, 2024
Patient says that he has been feeling better but complains that he has been unable to sleep since being in the hospital. He has been breathing well and tolerating fluids. Has been off of Levophed now and on Room Air currently. Patient has been
having some increased pain as well which he wants something for.
Objective Data
-
Labs:
Laboratory Results
05/22/24 05/22/24 05/22/24
02:47 02:48 11:36
WBC 14.0 H
Hgb 9.7 L
Hct 28.4 L
Plt Count 318
APTT 84.2 H 37.0 H
Sodium 130 L
Potassium 4.1
Chloride 98
Carbon Dioxide 22
BUN 119 H*
Creatinine 3.3 H
Glucose 134 H
Calcium 7.9 L
Vital Signs:
Vital Signs
Temp Pulse Resp BP Pulse Ox
97.9 F 98 19 98/62 93
05/22/24 07:10 05/22/24 05:00 05/22/24 05:00 05/22/24 05:00 05/22/24 05:00
I&O
05/21/24 05/22/24 05/23/24
06:59 06:59 06:59
Intake Total 1592 / 1592
Output Total 1750 / 1750
Balance -158 / -158
Review of Systems
-
History Source: Patient
Constitutional: Reports Sleep Disturbance; Denies Fever or Fatigue
Respiratory: Denies Cough, Trouble Breathing or Wheezing
Cardiac: Denies Chest Pain
Abdomen/GI: Denies Abdominal Pain, Nausea or Vomiting
Physical Exam
-
General: No Apparent Distress and Obese
HEENT: Normocephalic, Atraumatic and Moist Mucous Membranes
Respiratory: Clear to Auscultation and Non Labored Respirations
Cardiac: S1/S2 and Irregular Rhythm (A-Fib)
GI: Soft and Nontender
Musculoskeletal: Edema, Right Lower Extrem, Edema, Left Lower Extrem and Other (Legs covered with dressing)
Skin: Ulcers (Wounds at different levels of healing seen on legs and buttocks)
Neuro: Awake, Alert and Oriented
Data Reviewed
-
Labs: Labs Reviewed by me, Discussed with Physician, Discussed with Nurse and Discussed with Patient
[2024-05-22] MEDS: NOVOLOG FLEXPEN-LOW RESISTANCE 1 UNITS SC ×2 (15:33→18:08)
[2024-05-22 15:46] LABS: Glucose - Point of Care 181 mg/dl (70-99)
--- NOTE | 2024-05-22 17:38 | CM ---
Patient with Hx alcohol use disorder with Dx sepsis, b/l LE cellulitis, new Afib. Room air. Receiving IV Abx, Heparin gtt, IVF. Seen by wound care nurse. MSAS per nursing. PT/OT Luzals pending.
Met with patient and Sanam;
the patient resides alone during the week and Sanam, who lives/works in [facility] during the week, is there on weekends.
They live in a 2 story house.
The patient has been independent in ADLs and ambulation but has been unwell the past few months and not managing well on his own, per his .
The patient states he has difficulty sleeping and walking.
He has been staying on the first floor and sleeping in a recliner.
He was walking with his SPC, now using his rollator.
DME - SPC, rollator, nebulizer, compression socks
No prior VN or SNF.
PCP - Lisha Gold
Pharmacy - [facility]
Their 2 dogs and 2 cats have been left with a petsitter.
The made a random comment that she feels her should see a psychiatrist. CM asked for clarification and she responded saying that she feels her has not been managing his health well on his own. Encouraged her to speak directly
to hospital doctor in this regard.
Asked patient if he felt he needed help with his alcohol use and he said no.
Patient does not appear to have good support from his as she is absent from the home during the week.
Plan follow up after seen by PT/OT.
[2024-05-22 18:06] LABS: Glucose - Point of Care 164 mg/dl (70-99)
[2024-05-22 18:51] LABS: APTT 40.5 Sec (23.4-35.0)
[2024-05-22] MEDS: MELATONIN 5 MG PO (20:14)
[2024-05-22 21:40] LABS: Glucose - Point of Care 203 mg/dl (70-99)
[2024-05-23] VITALS (26 sets, daily range): BP systolic 89–135; BP diastolic 51–86; PULSE 113–118; O2SAT 94–95; BMI 42.2
--- NOTE | 2024-05-23 04:34 | PTCARENOTE ---
no acute events overnight. IV fluids running and heparin gtt running at 18. Q2 turns. echevarria in place draining yellow urine. Patient is pleasant and Aox3. Patient resting in bed with call bowling in reach.
[2024-05-23 04:38] LABS: Hematocrit 27.9 % (39.0-52.0); Hemoglobin 9.2 g/dL (13.0-18.0); Mean Corpuscular Hgb 26.8 pg (27.0-31.0); Mean Corpuscular Volume 81.3 fL (80.0-94.0); Mean Platelet Volume 9.8 fL (7.4-10.4); Platelet Count 286 10^3/uL (130-400); Red Blood Cell Count 3.43 10^6/uL (4.70-6.10); Red Cell Dist. Width 15.2 % (11.5-14.5); White Blood Cell Count 13.4 10^3/uL (4.8-10.8)
[2024-05-23 05:53] LABS: Blood Urea Nitrogen 116 mg/dl (9-20); Calcium 7.9 mg/dl (8.4-10.2); Carbon Dioxide 24 mmol/L (22-30); Chloride 101 mmol/L (98-107); Estimated Creatinine Clearance 39 ml/min; Glucose 140 mg/dl (70-99); Potassium 3.8 mmol/L (3.5-5.1); Sodium 132 mmol/L (135-145); eGFR 30.47
[2024-05-23 06:11] LABS: TSH 5.31 uIU/ml (0.47-4.68)
[2024-05-23 08:05] LABS: Glucose - Point of Care 139 mg/dl (70-99)
[2024-05-23] MEDS: NOVOLOG FLEXPEN-LOW RESISTANCE SC (08:05)
[2024-05-23] MEDS: MAXIPIME 2000 MG IV (08:06)
[2024-05-23] MEDS: DESENEX/MITRAZOL/ZEASORB 1 APPLIC TOPICAL ×2 (08:06→20:32)
[2024-05-23] MEDS: STERILE WATER FOR INJECTION 10 ML IV (08:07)
[2024-05-23] MEDS: LIPITOR 20 MG PO (08:08)
--- NOTE | 2024-05-23 08:33 | W.PN.CARDCBS ---
Today's Communication / Plan
-
Restart atenolol 25 mg a day for better rate control
Impression / Plan
-
.
State Assessed Properties Director: None, initially seen by Dr Vargas
Impression:
Atrial fibrillation, new diagnosis
Sepsis with leukocytosis, hypertension with bilateral cellulitis and possible UTI
Acute renal failure with metabolic acidosis and hyperkalemia
Volume overload with component of heart failure with preserved ejection fraction in the setting of acute renal failure
Hyponatremia
Morbid obesity, suspect COLT
Type 2 diabetes mellitus
Hyperlipidemia
Hypertension
Lymphedema
Alcohol use disorder
Poor self care
2D echocardiogram done at bedside in ED: Normal left ventricular size and systolic function with a EF estimated around 60% with moderate LVH. Aortic sclerosis without aortic stenosis or insufficiency. Mild mitral regurgitation. Trace tricuspid
regurgitation. Biatrial dilatation.Right ventricle mildly enlarged with overall low normal RV systolic function. IVC is dilated and does not collapse.No pericardial effusion
Plan:
Despite A-fib, he seems relatively stable from a cardiac standpoint. Rates are slightly elevated, will restart atenolol 25 mg a day for better rate control.
proBNP was elevated but no evidence of heart failure on exam. Will continue to follow at this time.
Continue local care for lower extremity edema/cellulitis etc. Given CLIFF which is improving dramatically, would avoid diuretics.
Advised regarding alcohol cessation. He indicates he does not intend to drink again.
VQ scan not performed, since patient will require anticoagulation and since is relatively asymptomatic, this is not mandatory at the present time.
Would begin Eliquis and stop heparin if okay with hospitalist team
Blood pressure adequate, currently valsartan, hydrochlorothiazide, amlodipine on hold. As above, restart atenolol for better rate control.
Progress Note - State Assessed Properties Director
Subjective
Date of Service: May 23, 2024:
73-year-old man admitted after extended discontinuation of self-care in the setting of daily vodka use with sepsis and newly discovered atrial fibrillation.
PMH hypertension, hyperlipidemia, diabetes, lymphedema, obesity, use
Medications: Heparin IV, atorvastatin 20 mg a day, insulin, Maxipime,
103/60, pulse 100, respiratory 21, afebrile, weight is 129.4 kg, on admission was 127.5 kg, 131.6 kg on the ninth, overall blood pressure is improving, morbidly obese, massive edema lower extremities both wrapped, lungs are clear, neck veins not
markedly elevated irregular and somewhat tachycardic rhythm, no obvious murmurs, massively obese abdomen
Leg vein ultrasound negative for DVT
Chest x-ray cardiomegaly
Echo: EF 65-70%, dilated RV, low normal RV function, biatrial dilatation, trace-mild mitral regurgitation, aortic sclerosis, trace tricuspid regurgitation, pulmonary artery systolic pressure 41 mmHg with dilated IVC, trace pericardial effusion
White count is 13.4, heme 0.2, platelets 286, sodium 132, BUN is 116, creatinine is 2.2, BUN had been 131, creatinine had been 5.3, troponin undetectable on admission, proBNP was 10,600 on admission
Objective
Labs:
05/23/24 04:17
05/23/24 04:17
Labs
Hgb 9.2 g/dL (13.0-18.0) L 05/23/24 04:17
Hct 27.9 % (39.0-52.0) L 05/23/24 04:17
Plt Count 286 10^3/uL (130-400) 05/23/24 04:17
APTT 82.0 Sec (23.4-35.0) H 05/23/24 02:16
Sodium 132 mmol/L (135-145) L 05/23/24 04:17
Potassium 3.8 mmol/L (3.5-5.1) 05/23/24 04:17
BUN 116 mg/dl (9-20) H* 05/23/24 04:17
Creatinine 2.2 mg/dL (0.7-1.3) H 05/23/24 04:17
Glucose 140 mg/dl (70-99) H 05/23/24 04:17
Troponins
05/20/24
09:07
Troponin I < 0.012
Vital Signs and I&O:
Vital Signs
Temp Pulse Resp BP Pulse Ox
36.6 C 100 21 103/60 92
05/23/24 07:33 05/23/24 06:00 05/23/24 06:00 05/23/24 06:00 05/23/24 06:00
Vital Signs
Temp Pulse Resp BP Pulse Ox
36.6 C 100 21 103/60 92
05/23/24 07:33 05/23/24 06:00 05/23/24 06:00 05/23/24 06:00 05/23/24 06:00
Intake & Output
05/21/24 05/22/24 05/23/24 05/24/24
07:59 07:59 07:59 07:59
Intake Total 1592 / 1592 800 / 800
Output Total 1600 / 1600 900 / 900
Balance -8 / -8 -100 / -100
Physical Exam
Physical Exam
See above
[2024-05-23 10:01] LABS: APTT 59.1 Sec (23.4-35.0)
[2024-05-23 10:17] LABS: Total Thyroxine 3.76 ug/dl (5.5-11.0)
--- NOTE | 2024-05-23 10:37 | W.PN.NEPH.PH ---
Today's Communication / Plan
-
cap IVF
Assessment/Plan
-
IMP:
Possible sepsis with bilateral lower extremity cellulitis
Josephine-Baseline creatinine of 1. 16 March 2023
Hyperkalemia
Significant azotemia
Anion gap metabolic acidosis
Hyponatremia
new A. fib
Type 2 diabetes
Lymphedema
Hypertension
Hyperlipidemia
Asthma
Obesity
Hypoalbuminemia
heart murmur
Plan:
follow BMP
cap IVF
-
-
Date of Service: May 23, 2024
CC / HPI / ROS
-
Chief Complaint:
JOSEPHINE
History of Present Illness:
cr slowly improving to 2.2
Na up to 132
BUN down to 116
k normal
BP stable
on heparin gt for afib
Review of Systems:
no cp or sob at rest
no fever
Labs
-
Labs:
WBC 13.4 10^3/uL (4.8-10.8) H 05/23/24 04:17
RBC 3.43 10^6/uL (4.70-6.10) L 05/23/24 04:17
Hgb 9.2 g/dL (13.0-18.0) L 05/23/24 04:17
Hct 27.9 % (39.0-52.0) L 05/23/24 04:17
Plt Count 286 10^3/uL (130-400) 05/23/24 04:17
Sodium 132 mmol/L (135-145) L 05/23/24 04:17
Potassium 3.8 mmol/L (3.5-5.1) 05/23/24 04:17
Chloride 101 mmol/L (98-107) 05/23/24 04:17
Carbon Dioxide 24 mmol/L (22-30) 05/23/24 04:17
BUN 116 mg/dl (9-20) H* 05/23/24 04:17
Creatinine 2.2 mg/dL (0.7-1.3) H 05/23/24 04:17
eGFR 30.47 05/23/24 04:17
Glucose 140 mg/dl (70-99) H 05/23/24 04:17
Calcium 7.9 mg/dl (8.4-10.2) L 05/23/24 04:17
Sbb-F-Ukakknpcfqc Pept 50789 pg/ml 05/20/24 09:07
Albumin 2.5 g/dl (3.5-5.0) L 05/21/24 10:19
Physical Exam
-
Vital Signs:
Vital Signs
Temp Pulse Resp BP Pulse Ox
97.9 F 100 21 103/60 92
05/23/24 07:33 05/23/24 06:00 05/23/24 06:00 05/23/24 06:00 05/23/24 06:00
Cardiovascular:: Irregular rate and rhythm
Respiratory:: Bilateral: Coarse
Lung Excursion:: Normal
Abdomen:: Nontender and Soft
Bowel Sounds:: Normal
Extremity Edema:: None: Bilateral:
[2024-05-23 12:19] LABS: Glucose - Point of Care 197 mg/dl (70-99)
[2024-05-23] MEDS: NOVOLOG FLEXPEN-LOW RESISTANCE 1 UNITS SC (12:19)
[2024-05-23] MEDS: DAKIN'S SOLUTION 0.125% 1/4 STRENGTH 473 ML TOPICAL (12:20)
[2024-05-23] MEDS: TENORMIN 25 MG PO (12:20)
[2024-05-23] MEDS: HYDROPHOR 1 APPLIC TOPICAL (12:21)
[2024-05-23] MEDS: LIDOCAINE 4% PATCH 1 PATCH TOPICAL (12:25)
--- NOTE | 2024-05-23 12:50 | W.PN.HOSP.TC ---
Addendum entered and electronically signed by Luz Collazo MD 05/23/24 14:28:
I saw and evaluated the patient. I reviewed the resident�s note and agree with findings and plan as documented in the resident�s note.
Patient did not want to undergo VQ scan as he has a lot of pain in the lumbar area. He stated that the pain was noticed yesterday and got worse.
On examination he patient is awake and alert and oriented
He slept well last night
Cardiovascular system S1-S2 regular
Abdomen soft and nontender
Bilateral lower extremity purulent drainage noted from the right leg wounds
Posterior left leg with good granulation tissue no discharge noted
Edema has come down
Discussed with the patient regarding VQ scan and the reasoning behind it. He still refusing. He is on anticoagulation therefore on treatment. is also aware about this.
I also suggested that he get an MRI of the lumbar spine with this pain however he is refusing at this point. He will reconsider once his pain is better.
Lidocaine patch, Tylenol, tramadol and oxycodone have been ordered for pain control
PT OT
Discussed with and updated. She is aware that she needs to look at a few rehabs for the patient to be discharged to when he is medically stable.
Also consult case management
Discussed with nursing at bedside
2 visits to the room today
total time spent over 50 min
Original Note:
Today's Communication/Plan
-
Continue with antibiotics. Continue monitoring pain.
Assessment / Plan
Assessment / Plan
Asssessment:
73 year old male with a past medical history of hypertension, hyperlipidemia, bilateral lower extremity lymphedema and type 2 diabetes without use of Insulin presented in the emergency department with concerns of not feeling well for last few weeks.
Patient was found to have have sepsis, CLIFF, new onset A-fib, and purulent discharge from bilateral lower extremity lymphedema. His sepsis was thought to have been caused by Bilateral LE cellulitis versus concurrent UTI. Patient's breathing has
improved and is currently on room air. Patient was hypotensive requiring Levophed before but now his blood pressure is stabilizing and he is off the Levophed. Patient's labs show marked improvement of his infection. Has improvement in his lower
extremity cellulitis as well. Complaining now of lower back pain which prevented him from getting his V/Q scan.
Plan:
05/20/24 CXR Moderate cardiomegaly with likely trace bilateral pleural effusions.
05/21/24: US Renal Only W/O Bladder: Subcentimeter nonobstructing bilateral renal calculi. No hydronephrosis.
05/21/24: US Periph Venous LOWER Ext Tez: No evidence of deep venous thrombosis bilaterally. Please note the bilateral peroneal and posterior tibial veins are not well visualized.
ECHO (05/20/24): CONCLUSIONS
Vigorous left ventricular systolic function with moderate concentric left
ventricular hypertrophy
Left ventricular ejection fraction visually estimated 65-70%
Mildly in enlarged right ventricle with low normal RV systolic function
Biatrial dilatation
Trace-mild mitral regurgitation
Trileaflet sclerotic aortic valve without stenosis or regurgitation
Trace tricuspid regurgitation
Estimated pulmonary artery pressure of 41 mmHg assuming a right atrial pressure
of 15 mmHg. The IVC is dilated and does not collapse.
Prominent anterior fat pad present. Trivial pericardial effusion without
evidence of hemodynamic compromise.
No prior study available for comparison
# Sepsis -likely due to Bilateral LE cellulitis
-Blood culture- no growth, Wound cultures pending
-urine culture showed no growth, UTI most likely not the cause sepsis
-Continue with current wound care as cellulitis continues to improve
-ID following, input appreciated
-Continue IV cefepime
-Patient now off of Levophed as blood pressure has been better controlled
-V/Q scan not possible due to patient unable to lie flat on the table due to increased back pain
-Leukocytosis is improving
# CLIFF with Metabolic Acidosis and Hyperkalemia
-Potassium has normalized
-Creatinine continues improving
-BP has been better off pressors
-Abraham in place, Renal US did not show any abnormality
-Nephro following, input appreciated
-Switched from Sodium bicarb based IV fluid to NSS IVF
-Avoid nephrotoxins
-Hold home potassium chloride: Lokelma as needed
#Coccyx stage 2 pressure injuries along with MASD
-developed these at homes as he sleeps in a recliner chair at home
-continue to be followed by wound care nurse
-follow up at wound care center upon discharge
-VN and Hospital bed with air mattress if home or air mattress if at rehab/SNF
-Continue wound care management while in the hospital
-Pain control as needed- will give Tramadol/Tylenol for pain
-One time dose of Morphine given to help patient get to V/Q scan which did not help
# New onset lower back pain
-Patient states this started around yesterday when he was trying to get the V/Q scan
-Patient unable to lie flat due to the pain
-Will try lidocaine patches plus tramadol plus oxycodone if necessary
-As pain resolves may need to get further imaging including MRI
# New onset atrial fibrillation
-Continue heparin drip, eventually switch to oral coagulation
-proBNP [id number]
-Chest x-ray with cardiomegaly, bedside echo in the ER shows no pericardial effusion however massive cardiomegaly
-cardiology following, input appreciated
-Echo as above
-Rate control strategy, continues to remain in A-Fib for now, but rate has been better controlled
-Atenolol added for further rate control
# Lymphedema; bilateral LE
-Purulence much better on exam, area erythema has also improved
-Continued Wound care
-Venous Doppler bilateral lower extremity did not show any DVT
#Insomnia
-Melatonin helped the patient fall asleep
-Will continue with the melatonin at night for now
# Alcohol use disorder
-Drinks 3 vodka daily
-No serum alcohol detected
-Continue MSAS
-Magnesium in normal range
# Diabetes mellitus type 2
-7.1 A1c
-Insulin sliding scale
-Hold metformin
# Essential hypertension
-Hold valsartan/HCTZ, amlodipine
# Hyperlipidemia
-Continue atorvastatin
# Obesity with BMI of 41
# Hypoalbuminemia
CODE STATUS: Full code
DVT Prophylaxis: Heparin
Anticipated Discharge: 24 - 48 hours
Subjective/Interval History
-
Date of Service: May 23, 2024
Patient says that he was able to sleep last night and that afterwards he was able to understand the gravity of his situation a lot more. He now realizes more that he is very sick and requires treatment. Still refuses to get V/Q scan as he is
unable to lay flat on the table. Complains of having lower back pain but not sure exactly where it is.
Objective Data
-
Labs:
Laboratory Results
05/23/24 05/23/24 05/23/24
02:16 04:17 09:38
WBC 13.4 H
Hgb 9.2 L
Hct 27.9 L
Plt Count 286
APTT 82.0 H 59.1 H
Sodium 132 L
Potassium 3.8
Chloride 101
Carbon Dioxide 24
BUN 116 H*
Creatinine 2.2 H
Glucose 140 H
Calcium 7.9 L
05/23/24
18:00
WBC
Hgb
Hct
Plt Count
APTT Pending
Sodium
Potassium
Chloride
Carbon Dioxide
BUN
Creatinine
Glucose
Calcium
Vital Signs:
Vital Signs
Temp Pulse Resp BP Pulse Ox
98.1 F 116 23 135/86 96
05/23/24 11:53 05/23/24 12:20 05/23/24 12:00 05/23/24 12:20 05/23/24 12:00
I&O
05/22/24 05/23/24 05/24/24
06:59 06:59 06:59
Intake Total 1592 / 1592 800 / 800
Output Total 1750 / 1750 900 / 900
Balance -158 / -158 -100 / -100
Review of Systems
-
History Source: Patient
Constitutional: Reports Sleep Disturbance; Denies Fever or Fatigue
Respiratory: Denies Cough, Trouble Breathing or Wheezing
Cardiac: Denies Chest Pain, Palpitations or Syncope
Abdomen/GI: Denies Abdominal Pain, Nausea or Vomiting
Musculoskeletal: Reports Other (Lower back pain)
Physical Exam
-
General: Well Developed, Conversant and Obese
HEENT: Normocephalic, Atraumatic and Moist Mucous Membranes
Respiratory: Clear to Auscultation and Non Labored Respirations
Cardiac: S1/S2 and Irregular Rhythm (A-Fib)
GI: Soft and Nontender
Musculoskeletal: Edema, Right Lower Extrem, Edema, Left Lower Extrem and Other (Legs covered with dressing, dressing removed and there is marked improvement of his cellulitis from before. Still some drainage noted especially on the right leg.
Lower back pain upon palpation of an area of the lower back.)
Skin: Ulcers (Wounds at different levels of healing seen on legs and buttocks)
Neuro: Awake, Alert and Oriented
Psych: Calm
Data Reviewed
-
Labs: Labs Reviewed by me, Discussed with Physician, Discussed with Nurse and Discussed with Patient
[2024-05-23] MEDS: HEPARIN 25000 UNITS/250 ML IV (13:11)
--- NOTE | 2024-05-23 13:28 | W.PN.ID1 ---
Date of Service
Date of Service: May 23, 2024
Today's Communication
Continue cefepime.
Assessment / Plan
# BLE lymphedema with exacerbation
# BLE cellulitis with infected wounds, improving
# Leukocytosis - improving
# Hypotension - improving
- pt was compliant with compression up until 1 month prior to admission
-blood cx neg to date.
-Ucx neg.
- Follow wound cx's
-Appreciate Wound RN recs.
-Continue cefepime d4, dose re-adjusted based on improving renal function
- Trend WBC
# CLIFF - improving
- Nephrology following
# Afib with RVR
-Cardiology following
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
Diabetes mellitus
Asthma
Dyslipidemia
Hypertension
Class III obesity BMI 42
Bilateral lower extremity lymphedema
Chief Complaint
-: Cellulitis
Subjective / Review of Systems
Feeling better
Vital Signs / Physical Exam
Vital Signs
Vital Signs
Temp Pulse Resp BP Pulse Ox
98.1 F 130 19 110/81 99
05/23/24 11:53 05/23/24 13:00 05/23/24 13:00 05/23/24 13:00 05/23/24 13:09
Physical Exam
Constitutional: No Acute Distress and Comfortable
Cardiovascular: Irregular Rate and Other (tachycardic)
Pulmonary: Clear
Gastrointestinal: Soft, Non Tender and Non Distended
Extremities: Edema (BLE edema improving)
Wound: Other (Examined legs during dressing change - continues to improve with small amt yellow-green exudate, bilateral posterior legs with denuded skin, superficial large wound on calves)
Neurological: AO x 3
Objective Data
Lab Data
Lab Results
05/23/24 04:17
05/23/24 04:17
APTT 59.1 Sec (23.4-35.0) H 05/23/24 09:38
Estimated Creat Clear 39 ml/min 05/23/24 04:17
Lactic Acid Cancelled 05/20/24 13:00
Total Bilirubin 1.1 mg/dl (0.2-1.3) 05/21/24 10:19
AST 43 U/L (17-59) 05/21/24 10:19
ALT 21 U/L (0-50) 05/21/24 10:19
Alkaline Phosphatase 195 U/L (38-126) H 05/21/24 10:19
Most recent labs reviewed.
Micro Results:
05/20/24 09:27 Blood Culture - Preliminary
Blood/Venous No Growth in 72 hours- Final report to follow
05/20/24 09:07 Blood Culture - Preliminary
Blood/Venous No Growth in 72 hours- Final report to follow
05/22/24 11:37 Wound Culture - Pending
Leg - Left Gram Stain - Preliminary
05/22/24 11:37 Wound Culture - Pending
Leg - Right Gram Stain - Preliminary
05/20/24 10:26 Urine Culture - Final
Urine NO GROWTH
05/20/24 CXR Moderate cardiomegaly with likely trace bilateral pleural effusions.
--- NOTE | 2024-05-23 14:12 | PTCARENOTE ---
Assumed care of patient at beginning of this shift from previous RN. Patient was for VQ scan today as he was unable to tolerate yesterday d/t back pain. IV dilaudid ordered pre-scan. Patient stated he was not going to have it done; he stated he
cannot tolerated laying on the table. Dr Collazo made aware when rounding on patient; med d/c'd. OOB to commode and chair x2 assistance with PT. Remains in chair at this time. Heparin infusing at 20ml/hr with repeat PTT at 18:00. Wound care done as
ordered.
[2024-05-23 15:25] LABS: Vitamin D, 25-OH*** < 12.8 ng/mL (30-80)
[2024-05-23 15:58] LABS: Vitamin B12 > 1000 pg/ml (239-931)
[2024-05-23] MEDS: NSS 1000 IV (16:27)
[2024-05-23] MEDS: DRISDOL (VITAMIN D2) 50000 UNITS PO (16:28)
--- NOTE | 2024-05-23 16:34 | CM ---
Patient with Hx alcohol use disorder with Dx sepsis, b/l LE cellulitis, new Afib. Room air. Receiving IV Abx, Heparin gtt, IVF. PT/OT recommends skilled rehab. Seen by wound care nurse. MSAS per nursing.
Met with patient who was sleeping.
Spoke with patient's Sanam;
she was at work in [employer] where she is an solar maintenance technician.
expressed concern that patient was not managing well by himself at home; he was dirty & disheveled when she brought him to the hospital, he was not always doing his wound care, and she and his daughter wonder if he was depressed at home --->
message relayed to MD.
Discussed short term SNF for rehab; says neither she or the patient are familiar with any of the SNFs. CM can make referrals to local SNFs with good ratings and let her know who accepts.
SNF referrals placed.
Plan follow up SNF referrals.
[2024-05-23 17:38] LABS: Glucose - Point of Care 234 mg/dl (70-99)
[2024-05-23] MEDS: NOVOLOG FLEXPEN-LOW RESISTANCE 2 UNITS SC (17:39)
[2024-05-23] MEDS: MELATONIN 5 MG PO (20:32)
[2024-05-23 22:12] LABS: Glucose - Point of Care 360 mg/dl (70-99)
--- NOTE | 2024-05-23 22:54 | PTCARENOTE ---
patient accucheck at 2200 was 360. TOOL DESIGN ENGINEER notified and 5 units of novolog ordered.
[2024-05-23] MEDS: NOVOLOG FLEXPEN 5 UNITS SC (22:57)
[2024-05-24] VITALS (18 sets, daily range): BP systolic 96–144; BP diastolic 53–86; BMI 42.1
[2024-05-24 00:57] LABS: APTT 124.7 Sec (23.4-35.0)
[2024-05-24] MEDS: HEPARIN 25000 UNITS/250 ML IV (03:42)
[2024-05-24] MEDS: NSS 1000 IV (06:03)
[2024-05-24 06:38] LABS: APTT 84.7 Sec (23.4-35.0)
[2024-05-24 06:39] LABS: Hematocrit 29.2 % (39.0-52.0); Hemoglobin 9.6 g/dL (13.0-18.0); Mean Corp Hgb Conc. 32.9 g/dL (33.0-37.0); Mean Platelet Volume 9.6 fL (7.4-10.4); Platelet Count 272 10^3/uL (130-400); Red Blood Cell Count 3.56 10^6/uL (4.70-6.10); Red Cell Dist. Width 15.3 % (11.5-14.5); White Blood Cell Count 15.3 10^3/uL (4.8-10.8)
[2024-05-24 06:56] LABS: Blood Urea Nitrogen 102 mg/dl (9-20); Calcium 8.3 mg/dl (8.4-10.2); Carbon Dioxide 24 mmol/L (22-30); Chloride 104 mmol/L (98-107); Estimated Creatinine Clearance 53 ml/min; Glucose 133 mg/dl (70-99); Potassium 3.9 mmol/L (3.5-5.1); Sodium 134 mmol/L (135-145); eGFR 44.65
[2024-05-24 07:25] LABS: Glucose - Point of Care 140 mg/dl (70-99)
[2024-05-24] MEDS: TENORMIN 25 MG PO (07:55)
[2024-05-24] MEDS: NOVOLOG FLEXPEN-LOW RESISTANCE SC (07:55)
[2024-05-24] MEDS: STERILE WATER FOR INJECTION 10 ML IV ×2 (07:55→16:06)
[2024-05-24] MEDS: MAXIPIME 2000 MG IV (07:55)
[2024-05-24] MEDS: VITAMIN D3 (cholecalciferol) 25 MCG PO (07:55)
[2024-05-24] MEDS: LIPITOR 20 MG PO (07:55)
[2024-05-24] MEDS: LIDOCAINE 4% PATCH 1 PATCH TOPICAL (07:56)
[2024-05-24 08:13] LABS: % Basophils 0.5 % (0-2); % Eosinophils 1.4 % (0-6); % Immature Granulocytes 6.9 % (0-0.5); % Lymphocytes 6.7 % (20.5-51.1); % Monocytes 14.1 % (1.7-9.3); % Neutrophils 70.4 % (42.2-75.2); Absolute Basophils 0.1 10^3/uL (0-0.2); Absolute Eosinophils 0.2 10^3/uL (0-0.7); Absolute Immature Granulocytes 1.1 10^3/uL (0-0.05); Absolute Monocytes 2.2 10^3/uL (0.1-0.6); Absolute Neutrophils 10.7 10^3/uL (1.4-6.5); Nucleated Red Blood Cells % 0 % (-)
--- NOTE | 2024-05-24 10:57 | W.PN.NEPH.PH ---
Today's Communication / Plan
-
follow labs
Assessment/Plan
-
IMP:
Possible sepsis with bilateral lower extremity cellulitis
Josephine-Baseline creatinine of 1. 16 March 2023
Hyperkalemia
Significant azotemia
Anion gap metabolic acidosis
Hyponatremia
new A. fib
Type 2 diabetes
Lymphedema
Hypertension
Hyperlipidemia
Asthma
Obesity
Hypoalbuminemia
heart murmur
Plan:
JOSEPHINE-cr improving
azotemia slow to improve
non oliguric with echevarria-eventual VT
mild hyponatremia stable
follow BMP
-
-
Date of Service: May 24, 2024
CC / HPI / ROS
-
Chief Complaint:
JOSEPHINE
History of Present Illness:
cr slowly improving to 1.6
Na up to 134
BUN down to 102
k normal
BP stable
on heparin gt for afib
Review of Systems:
no cp or sob at rest
no fever
Labs
-
Labs:
WBC 15.3 10^3/uL (4.8-10.8) H 05/24/24 06:08
RBC 3.56 10^6/uL (4.70-6.10) L 05/24/24 06:08
Hgb 9.6 g/dL (13.0-18.0) L 05/24/24 06:08
Hct 29.2 % (39.0-52.0) L 05/24/24 06:08
Plt Count 272 10^3/uL (130-400) 05/24/24 06:08
Sodium 134 mmol/L (135-145) L 05/24/24 06:08
Potassium 3.9 mmol/L (3.5-5.1) 05/24/24 06:08
Chloride 104 mmol/L (98-107) 05/24/24 06:08
Carbon Dioxide 24 mmol/L (22-30) 05/24/24 06:08
BUN 102 mg/dl (9-20) H* 05/24/24 06:08
Creatinine 1.6 mg/dL (0.7-1.3) H 05/24/24 06:08
eGFR 44.65 05/24/24 06:08
Glucose 133 mg/dl (70-99) H 05/24/24 06:08
Calcium 8.3 mg/dl (8.4-10.2) L 05/24/24 06:08
Hcc-O-[facility] Pept 75327 pg/ml 05/20/24 09:07
Albumin 2.5 g/dl (3.5-5.0) L 05/21/24 10:19
Physical Exam
-
Vital Signs:
Vital Signs
Temp Pulse Resp BP Pulse Ox
98.3 F 97 21 109/66 98
05/24/24 07:21 05/24/24 10:00 05/24/24 10:00 05/24/24 10:00 05/24/24 10:51
Cardiovascular:: Irregular rate and rhythm
Respiratory:: Bilateral: CTA (decreased)
Lung Excursion:: Normal
Abdomen:: Nontender and Soft
Bowel Sounds:: Normal
Extremity Edema:: +2: Bilateral:
Echevarria Catheter: Yes
[2024-05-24] MEDS: ELIQUIS 5 MG PO ×2 (11:30→20:15)
[2024-05-24] MEDS: DESENEX/MITRAZOL/ZEASORB 1 APPLIC TOPICAL ×2 (11:31→20:15)
[2024-05-24] MEDS: DAKIN'S SOLUTION 0.125% 1/4 STRENGTH 473 ML TOPICAL (11:31)
[2024-05-24] MEDS: HYDROPHOR 1 APPLIC TOPICAL (11:32)
[2024-05-24] MEDS: ROXICODONE 5 MG PO ×2 (11:35→18:05)
[2024-05-24] MEDS: NOVOLOG FLEXPEN-LOW RESISTANCE 2 UNITS SC (12:10)
--- NOTE | 2024-05-24 12:11 | W.PN.ID1 ---
Date of Service
Date of Service: May 24, 2024
Today's Communication
Continue cefepime
Assessment / Plan
# BLE lymphedema with exacerbation
# BLE cellulitis with infected wounds, improving
# Leukocytosis
- pt was compliant with compression up until 1 month prior to admission
-blood cx neg to date.
-Ucx neg.
- wound cx's: GNR, Group G strep
-Appreciate Wound RN recs.
-Continue cefepime d5, dose re-adjusted based on improving renal function
- Trend WBC
# CLIFF - improving
- Nephrology following
# Afib
-Cardiology following
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
Diabetes mellitus
Asthma
Dyslipidemia
Hypertension
Class III obesity BMI 42
Bilateral lower extremity lymphedema
Chief Complaint
-: Cellulitis
Subjective / Review of Systems
c/o back pain from laying flat for study yesterday. Some stomach upset.
Vital Signs / Physical Exam
Vital Signs
Vital Signs
Temp Pulse Resp BP Pulse Ox
97.9 F 97 21 109/66 98
05/24/24 11:13 05/24/24 10:00 05/24/24 10:00 05/24/24 10:00 05/24/24 10:51
Physical Exam
Constitutional: No Acute Distress and Comfortable
Cardiovascular: Irregular Rate and S1/S2
Pulmonary: Clear
Gastrointestinal: Soft, Non Tender, Non Distended and Normal Bowel Sounds
Neurological: AO x 3
Objective Data
Lab Data
Lab Results
05/24/24 06:08
05/24/24 06:08
APTT 84.7 Sec (23.4-35.0) H 05/24/24 06:08
Estimated Creat Clear 53 ml/min 05/24/24 06:08
Lactic Acid Cancelled 05/20/24 13:00
Total Bilirubin 1.1 mg/dl (0.2-1.3) 05/21/24 10:19
AST 43 U/L (17-59) 05/21/24 10:19
ALT 21 U/L (0-50) 05/21/24 10:19
Alkaline Phosphatase 195 U/L (38-126) H 05/21/24 10:19
Most recent labs reviewed.
Micro Results:
05/22/24 11:37 Wound Culture - Preliminary
Leg - Right Gram negative bacilli
Group G Streptococcus
Gram Stain - Preliminary
05/22/24 11:37 Wound Culture - Preliminary
Leg - Left Gram negative bacilli
Group G Streptococcus
Gram Stain - Preliminary
05/20/24 09:27 Blood Culture - Preliminary
Blood/Venous No Growth in 4 days- Final report to follow
05/20/24 09:07 Blood Culture - Preliminary
Blood/Venous No Growth in 4 days- Final report to follow
05/20/24 10:26 Urine Culture - Final
Urine NO GROWTH
05/20/24 CXR Moderate cardiomegaly with likely trace bilateral pleural effusions.
[2024-05-24 12:21] LABS: Glucose - Point of Care 217 mg/dl (70-99)
--- NOTE | 2024-05-24 12:47 | W.PN.CARDCBS ---
Today's Communication / Plan
-
Continue atenolol for rate control of afib and follow.
Tele Stable
Would begin Eliquis and stop heparin if renal function is stable in AM
Impression / Plan
-
.
Hospital Monitor: None, initially seen by Dr Vargas
Impression:
Atrial fibrillation, new diagnosis
Sepsis with leukocytosis, hypertension with bilateral cellulitis and possible UTI
Acute renal failure with metabolic acidosis and hyperkalemia
Volume overload with component of heart failure with preserved ejection fraction in the setting of acute renal failure
Hyponatremia
Morbid obesity, suspect COLT
Type 2 diabetes mellitus
Hyperlipidemia
Hypertension
Lymphedema
Alcohol use disorder
Poor self care
2D echocardiogram done at bedside in ED: Normal left ventricular size and systolic function with a EF estimated around 60% with moderate LVH. Aortic sclerosis without aortic stenosis or insufficiency. Mild mitral regurgitation. Trace tricuspid
regurgitation. Biatrial dilatation.Right ventricle mildly enlarged with overall low normal RV systolic function. IVC is dilated and does not collapse.No pericardial effusion
Plan:
Newly diagnosed A-fib with heart rates are slightly elevated 90 bpm at rest.
Continue atenolol and follow.
Tele Stable.
Would begin Eliquis and stop heparin if renal function is stable in AM
proBNP was elevated in the setting of CLIFF. Will continue to follow at this time. Watch for post recovery diuresis.
Follow volume status
Continue local care for lower extremity edema/cellulitis etc.
Antibx per primary service and ID
Wound Care
Advised regarding alcohol cessation. He indicates he does not intend to drink again.
VQ scan not performed (RV mildly enlarged with low nl function), since patient will require anticoagulation and since is relatively asymptomatic, this is not mandatory at the present time.
With body habitus t/c Sleep apnea testing as an outpatient
Blood pressure adequate
Follow
Progress Note - Hospital Monitor
Subjective
Date of Service: May 24, 2024
Denies chest pain and palpitations
Objective
Labs:
05/24/24 06:08
05/24/24 06:08
Labs
Hgb 9.6 g/dL (13.0-18.0) L 05/24/24 06:08
Hct 29.2 % (39.0-52.0) L 05/24/24 06:08
Plt Count 272 10^3/uL (130-400) 05/24/24 06:08
APTT Cancelled 05/24/24 12:30
Sodium 134 mmol/L (135-145) L 05/24/24 06:08
Potassium 3.9 mmol/L (3.5-5.1) 05/24/24 06:08
BUN 102 mg/dl (9-20) H* 05/24/24 06:08
Creatinine 1.6 mg/dL (0.7-1.3) H 05/24/24 06:08
Glucose 133 mg/dl (70-99) H 05/24/24 06:08
Vital Signs and I&O:
Vital Signs
Temp Pulse Resp BP Pulse Ox
97.9 F 97 21 109/66 98
05/24/24 11:13 05/24/24 10:00 05/24/24 10:00 05/24/24 10:00 05/24/24 10:51
Vital Signs
Temp Pulse Resp BP Pulse Ox
97.9 F 97 21 109/66 98
05/24/24 11:13 05/24/24 10:00 05/24/24 10:00 05/24/24 10:00 05/24/24 10:51
Intake & Output
05/22/24 05/23/24 05/24/24 05/25/24
06:59 06:59 06:59 06:59
Intake Total 1592 / 1592 800 / 800
Output Total 1750 / 1750 900 / 900 850 / 850 975 / 975
Balance -158 / -158 -100 / -100 -850 / -850 -975 / -975
Physical Exam
Physical Exam
General: Well developed, well nourished in NAD.
Heart: distant irregular, no murmurs, No S3, S4, no rubs.
Lungs: coarse ant bth sd
Extremities:wrapped
--- NOTE | 2024-05-24 12:53 | W.PN.HOSP.TC ---
Addendum entered and electronically signed by Luz Collazo MD 05/24/24 13:49:
I saw and evaluated the patient. I reviewed the resident�s note and agree with findings and plan as documented in the resident�s note except for changes in my documentation
Seen earlier today. Late documentation
Cardiovascular system S1-S2 appreciated irregular
Chest decreased but clear to auscultation
Abdomen soft and nontender
Lower extremities were wrapped after wound care
# Sepsis
Likely source cellulitis-possibly strep
UTI ruled out
Blood cultures negative
Continue cefepime for lower extremity cellulitis
Wound care
Venous Dopplers negative for DVT
Wound care and compression therapy with Justus bandages.
# Low back pain- Get MRI if he allows after pain control.Reasoning explained to pt.
# Hypotension-treated as septic shock. Off pressors
# Acute kidney injury with metabolic acidosis and hyperkalemia
Possibly prerenal secondary to poor p.o. intake. Was also using ibuprofen 3 days prior to admission
3+ albumin noted. FENA low
Both And [place] metabolic acidosis-Resolved.
Abraham catheter placed in the ER-continue
Hold valsartan, NSAIDs, Hydrochlorothiazide, Potassium, Torsemide, Metformin
Hyperkalemia resolved
Intake output charting
Stop IV fluids
proBNP 10,600
Eventually may need Lasix once renal function is better
Nephrology consulted.
# Hyponatremia -getting better-type unclear. Volume assessment difficult but probably intravascularly volume depleted.
Possibly an element of prerenal and also SIADH given hypotension.
Off pressors
# New onset atrial fibrillation
Heparin drip started in the ER-restarted
Atenolol restarted.
Echo 325-vigorous LV systolic function with moderate concentric LVH. Left ventricular ejection fraction 65 to 70%. Mildly enlarged RV with low normal RV systolic function. Biatrial dilatation. Trace MR. Trace TR. Pulmonary artery pressure 41
mmHg. IVC is dilated and does not collapse. Trivial pericardial effusion
Cardiology consulted and following
# 6.1 X3.3X 4.3 cm solid lesion with internal vascularity in the proximal right thigh with differential including suspicious lymph node or soft tissue neoplasm- Outpatient work up
# Diabetes-hemoglobin A1c 7.1 .Hold metformin. Accu-Cheks and sliding scale coverage
# Alcohol use disorder drinks 3 glass of Vodka every day. MSAS and thiamine replacement
# Hypertension-hold valsartan, hydrochlorothiazide, amlodipine . Atenolol restarted.
# Hyperlipidemia-continue atorvastatin
# Obesity with a BMI of 41
# Hypoalbuminemia
# Chronic lymphedema bilateral lower extremities
# DVT prophylaxis- Eliquis
# Full code
D/W RN
Original Note:
Today's Communication/Plan
-
Continue antibiotics, new dose regimen due to improving renal function, continue moving patient out of bed. Monitor for any worsening back pain
Assessment / Plan
Assessment / Plan
Asssessment:
73 year old male with a past medical history of hypertension, hyperlipidemia, bilateral lower extremity lymphedema and type 2 diabetes without use of Insulin presented in the emergency department with concerns of not feeling well for last few weeks.
Patient was found to have have sepsis, CLIFF, new onset A-fib, and purulent discharge from bilateral lower extremity lymphedema. His sepsis was thought to have been caused by Bilateral LE cellulitis versus concurrent UTI. Patient's breathing has
improved and is currently on room air. Patient was hypotensive requiring Levophed before but now his blood pressure is stabilizing and he is off the Levophed. Patient's labs show marked improvement of his infection. Has improvement in his lower
extremity cellulitis as well. Complaining now of lower back pain which prevented him from getting his V/Q scan. Patient will try pain medications for his back pain. Will order MRI of lower back when patient is able to tolerate laying flat.
Plan:
05/20/24 CXR Moderate cardiomegaly with likely trace bilateral pleural effusions.
05/21/24: US Renal Only W/O Bladder: Subcentimeter nonobstructing bilateral renal calculi. No hydronephrosis.
05/21/24: US Periph Venous LOWER Ext Tez: No evidence of deep venous thrombosis bilaterally. Please note the bilateral peroneal and posterior tibial veins are not well visualized.
ECHO (05/20/24): CONCLUSIONS
Vigorous left ventricular systolic function with moderate concentric left
ventricular hypertrophy
Left ventricular ejection fraction visually estimated 65-70%
Mildly in enlarged right ventricle with low normal RV systolic function
Biatrial dilatation
Trace-mild mitral regurgitation
Trileaflet sclerotic aortic valve without stenosis or regurgitation
Trace tricuspid regurgitation
Estimated pulmonary artery pressure of 41 mmHg assuming a right atrial pressure
of 15 mmHg. The IVC is dilated and does not collapse.
Prominent anterior fat pad present. Trivial pericardial effusion without
evidence of hemodynamic compromise.
No prior study available for comparison
# Sepsis -likely due to Bilateral LE cellulitis
-Blood culture- no growth, Wound cultures pending
-urine culture showed no growth, UTI most likely not the cause sepsis
-Continue with current wound care as cellulitis continues to improve
-Patient now off of Levophed as blood pressure has been better controlled
-ID following, input appreciated
-Wound culture grew gram-negative group G Streptococcus with sensitivities to penicillin
-Continue IV cefepime, dose changed to 1 g every 8 as per pharmacy recommendation
-Leukocytosis worsened again today, will continue monitoring
-Patient downgraded from IMU to telemetry
# CLIFF with Metabolic Acidosis and Hyperkalemia
-Potassium has normalized
-Creatinine continues improving, now at 1.6
-BP has been better off pressors
-Abraham in place, Renal US did not show any abnormality
-Nephro following, input appreciated
-Discontinued IV fluids
-Avoid nephrotoxins
-Hold home potassium chloride: Lokelma as needed
#Coccyx stage 2 pressure injuries along with MASD
-developed these at homes as he sleeps in a recliner chair at home
-continue to be followed by wound care nurse
-follow up at wound care center upon discharge
-VN and Hospital bed with air mattress if home or air mattress if at rehab/SNF
-Continue wound care management while in the hospital
-Pain control as needed- will give Tramadol/Tylenol for pain, oxycodone as needed
-One time dose of Morphine given to help patient get to V/Q scan which did not help
# New onset lower back pain
-Patient states this started around yesterday when he was trying to get the V/Q scan
-Patient unable to lie flat due to the pain
-As pain resolves may need to get further imaging including MRI
-Lidocaine patch did not help resolve the pain, patient has not tried anything further
-Counseled patient that he can ask for pain medications if needed
# New onset atrial fibrillation
-proBNP 97122
-Chest x-ray with cardiomegaly, bedside echo in the ER shows no pericardial effusion however massive cardiomegaly
-cardiology following, input appreciated
-Echo as above
-Rate control strategy, continues to remain in A-Fib for now, but rate has been better controlled
-Patient switched to oral anti-coagulation (5 mg Eliquis)
-Atenolol added for further rate control
# Lymphedema; bilateral LE
-Purulence much better on exam, area erythema has also improved
-Continued Wound care
-Venous Doppler bilateral lower extremity did not show any DVT
#Insomnia
-Melatonin helped the patient fall asleep
-Will continue with the melatonin at night for now
# Alcohol use disorder
-Drinks 3 vodka daily
-No serum alcohol detected
-MSAS protocol discontinued
-Magnesium in normal range
# Diabetes mellitus type 2
-7.1 A1c
-Insulin sliding scale
-Hold metformin
# Essential hypertension
-Hold valsartan/HCTZ, amlodipine
# Hyperlipidemia
-Continue atorvastatin
# Obesity with BMI of 41
# Hypoalbuminemia
CODE STATUS: Full code
DVT Prophylaxis: Eliquis
Anticipated Discharge: 24 - 48 hours
Subjective/Interval History
-
Date of Service: May 24, 2024
Patient is able to sleep last night and was feeling a bit better but still very tired and still complaining of back pain. He has only tried a lidocaine patch for his pain relief which has not really helped him too much. He was able to get out of
the bed yesterday and onto his chair where he spent several hours. Does not complain of any heart palpitations, chest pain, shortness of breath.
Objective Data
-
Labs:
Laboratory Results
05/24/24 05/24/24 05/24/24
00:30 06:08 12:30
WBC 15.3 H
Hgb 9.6 L
Hct 29.2 L
Plt Count 272
APTT 124.7 H 84.7 H Cancelled
Sodium 134 L
Potassium 3.9
Chloride 104
Carbon Dioxide 24
BUN 102 H*
Creatinine 1.6 H
Glucose 133 H
Calcium 8.3 L
Vital Signs:
Vital Signs
Temp Pulse Resp BP Pulse Ox
97.9 F 97 21 109/66 98
05/24/24 11:13 05/24/24 10:00 05/24/24 10:00 05/24/24 10:00 05/24/24 10:51
I&O
05/23/24 05/24/24 05/25/24
06:59 06:59 06:59
Intake Total 800 / 800
Output Total 900 / 900 850 / 850 975 / 975
Balance -100 / -100 -850 / -850 -975 / -975
Review of Systems
-
History Source: Patient
Constitutional: Reports Fatigue; Denies Fever
Respiratory: Denies Cough, Trouble Breathing or Wheezing
Cardiac: Denies Chest Pain, Palpitations or Syncope
Abdomen/GI: Denies Abdominal Pain, Nausea or Vomiting
Musculoskeletal: Reports Other (Lower back pain)
Physical Exam
-
General: Well Developed, Conversant and Obese
HEENT: Normocephalic, Atraumatic and Moist Mucous Membranes
Respiratory: Clear to Auscultation and Non Labored Respirations
Cardiac: S1/S2 and Irregular Rhythm (A-Fib)
GI: Soft and Nontender
Musculoskeletal: Edema, Right Lower Extrem, Edema, Left Lower Extrem and Other (Bilateral lower extremities covered with Justus bandages, skin changes not observed today)
Neuro: Awake, Alert and Oriented
Psych: Calm
Data Reviewed
-
Labs: Labs Reviewed by me, Discussed with Physician, Discussed with Nurse and Discussed with Patient
--- NOTE | 2024-05-24 15:24 | CM ---
sales service manager reviewed patient's chart and met with patient, adult protective caseworker received a request to check on cost of medication, and cost for a 30 day supply is $30, patient made aware and coupon provided.
Plan; Home with spouse when stable.
--- NOTE | 2024-05-24 15:33 | PTCARENOTE ---
Patient transferred to 0 with all belongings; report given.
[2024-05-24] MEDS: ULTRAM 50 MG PO (16:05)
[2024-05-24] MEDS: MAXIPIME 1000 MG IV (16:06)
--- NOTE | 2024-05-24 16:30 | PTCARENOTE ---
Patient received from IMU. Tele monitor in place reading CAF, HR in the 60s with a BBB. VSS. Patient oriented to floor. Daughter at bedside. Call bowling within reach.
[2024-05-24 17:19] LABS: Glucose - Point of Care 194 mg/dl (70-99)
[2024-05-24] MEDS: NOVOLOG FLEXPEN-LOW RESISTANCE 1 UNITS SC (18:02)
[2024-05-24 21:23] LABS: Glucose - Point of Care 252 mg/dl (70-99)
[2024-05-24] MEDS: MELATONIN 5 MG PO (21:59)
[2024-05-25] MEDS: STERILE WATER FOR INJECTION 10 ML IV ×5 (00:15→23:52)
[2024-05-25] MEDS: MAXIPIME 1000 MG IV ×5 (00:15→23:52)
[2024-05-25] MEDS: ROXICODONE 5 MG PO ×3 (02:11→13:37)
--- NOTE | 2024-05-25 02:18 | PTCARENOTE ---
Patient states his pain is 8/10 in his back and his knees are also causing him pain. Patient refused tramadol stating he tried that today and it was not effective. Oxycodone given for 8/10 back pain.
[2024-05-25 03:18] VITALS: BP 94/53
[2024-05-25 06:00] VITALS: BMI 42.4
[2024-05-25 07:29] VITALS: BP 108/61
[2024-05-25 07:50] LABS: Glucose - Point of Care 139 mg/dl (70-99)
[2024-05-25 08:04] LABS: Hematocrit 28.4 % (39.0-52.0); Hemoglobin 9.3 g/dL (13.0-18.0); Mean Corp Hgb Conc. 32.7 g/dL (33.0-37.0); Mean Corpuscular Hgb 27.5 pg (27.0-31.0); Mean Platelet Volume 9.8 fL (7.4-10.4); Platelet Count 266 10^3/uL (130-400); Red Blood Cell Count 3.38 10^6/uL (4.70-6.10); Red Cell Dist. Width 15.5 % (11.5-14.5); White Blood Cell Count 14.1 10^3/uL (4.8-10.8)
[2024-05-25 08:41] LABS: Blood Urea Nitrogen 96 mg/dl (9-20); Calcium 8.4 mg/dl (8.4-10.2); Carbon Dioxide 25 mmol/L (22-30); Chloride 105 mmol/L (98-107); Estimated Creatinine Clearance 57 ml/min; Glucose 131 mg/dl (70-99); Sodium 136 mmol/L (135-145); eGFR 48.25
[2024-05-25] MEDS: NOVOLOG FLEXPEN-LOW RESISTANCE SC (08:59)
[2024-05-25] MEDS: ELIQUIS 5 MG PO ×2 (09:11→20:35)
[2024-05-25] MEDS: TENORMIN 25 MG PO (09:11)
[2024-05-25] MEDS: LIPITOR 20 MG PO (09:12)
[2024-05-25] MEDS: LIDOCAINE 4% PATCH 1 PATCH TOPICAL (09:12)
[2024-05-25] MEDS: VITAMIN D3 (cholecalciferol) 25 MCG PO (09:12)
[2024-05-25] MEDS: DAKIN'S SOLUTION 0.125% 1/4 STRENGTH 473 ML TOPICAL (09:13)
[2024-05-25] MEDS: DESENEX/MITRAZOL/ZEASORB 1 APPLIC TOPICAL ×2 (09:14→20:37)
[2024-05-25] MEDS: HYDROPHOR 1 APPLIC TOPICAL (09:15)
--- NOTE | 2024-05-25 11:09 | W.PN.HOSP.TC ---
Addendum entered and electronically signed by Luz Collazo MD 05/25/24 16:07:
I saw and evaluated the patient. I reviewed the resident�s note and agree with findings and plan as documented in the resident�s note.
Seen earlier today. Late documentation
was at bedside
Patient was feeling slightly better
Exam cardiovascular system S1-S2 regular
Chest clear to auscultation
Abdomen soft and nontender
Bilateral lower extremity edema
Wound care pictures noted
He is still having low back pain
Discussed about getting MRI tomorrow
He has oxycodone ordered
Discussed with about mass in the thigh and outpatient follow-up imaging for that
Discussed with nursing
Discussed with wound care
Original Note:
Today's Communication/Plan
-
Continue antibiotics. Monitor for any changes in pain. Getting out of bed and ambulation.
Assessment / Plan
Assessment / Plan
Asssessment:
73 year old male with a past medical history of hypertension, hyperlipidemia, bilateral lower extremity lymphedema and type 2 diabetes without use of Insulin presented in the emergency department with concerns of not feeling well for last few weeks.
Patient was found to have have sepsis, CLIFF, new onset A-fib, and purulent discharge from bilateral lower extremity lymphedema. His sepsis was thought to have been caused by Bilateral LE cellulitis versus concurrent UTI. Patient's breathing has
improved and is currently on room air. Patient was hypotensive requiring Levophed before but now his blood pressure is stabilizing and he is off the Levophed. Patient's labs show marked improvement of his infection. Has improvement in his lower
extremity cellulitis as well. Patient will try pain medications for his back pain. Patient tried to get oxycodone which did help with his pain. Will order MRI of lower back when patient is able to tolerate laying flat.
Plan:
05/20/24 CXR Moderate cardiomegaly with likely trace bilateral pleural effusions.
05/21/24: US Renal Only W/O Bladder: Subcentimeter nonobstructing bilateral renal calculi. No hydronephrosis.
05/21/24: US Periph Venous LOWER Ext Tez: No evidence of deep venous thrombosis bilaterally. Please note the bilateral peroneal and posterior tibial veins are not well visualized.
ECHO (05/20/24): CONCLUSIONS
Vigorous left ventricular systolic function with moderate concentric left
ventricular hypertrophy
Left ventricular ejection fraction visually estimated 65-70%
Mildly in enlarged right ventricle with low normal RV systolic function
Biatrial dilatation
Trace-mild mitral regurgitation
Trileaflet sclerotic aortic valve without stenosis or regurgitation
Trace tricuspid regurgitation
Estimated pulmonary artery pressure of 41 mmHg assuming a right atrial pressure
of 15 mmHg. The IVC is dilated and does not collapse.
Prominent anterior fat pad present. Trivial pericardial effusion without
evidence of hemodynamic compromise.
No prior study available for comparison
# Sepsis -likely due to Bilateral LE cellulitis
-Blood culture- no growth
-urine culture showed no growth, UTI most likely not the cause sepsis
-Continue with current wound care as cellulitis continues to improve
-Patient now off of Levophed as blood pressure has been better controlled
-ID following, input appreciated
-Wound culture grew gram-negative group G Streptococcus with sensitivities to penicillin. Also grew Serratia marcescens and Klebsiella oxytoca.
-Will await any changes that ID wants to make regarding antibiotics
-Continue IV cefepime, dose changed to 1 g every 8 as per pharmacy recommendation
-Leukocytosis worsened again today, will continue monitoring
-Patient downgraded from IMU to telemetry
# CLIFF with Metabolic Acidosis and Hyperkalemia
-Potassium has normalized
-Creatinine continues improving, now at 1.5
-BP has been better off pressors
-Abraham in place, Renal US did not show any abnormality
-Nephro following, input appreciated
-Discontinued IV fluids
-Avoid nephrotoxins
-Hold home potassium chloride: Lokelma as needed
#Coccyx stage 2 pressure injuries along with MASD
-developed these at homes as he sleeps in a recliner chair at home
-continue to be followed by wound care nurse
-follow up at wound care center upon discharge
-VN and Hospital bed with air mattress if home or air mattress if at rehab/SNF
-Continue wound care management while in the hospital
-Pain control as needed- will give Tramadol/Tylenol for pain, oxycodone as needed
-One time dose of Morphine given to help patient get to V/Q scan which did not help
# New onset lower back pain
-Patient states this started around yesterday when he was trying to get the V/Q scan
-Patient unable to lie flat due to the pain
-As pain resolves may need to get further imaging including MRI
-Lidocaine patch did not help resolve the pain, patient has not tried anything further
-Counseled patient that he can ask for pain medications if needed
-Patient says that he would be okay with getting the MRI tomorrow not today
# New onset atrial fibrillation
-proBNP 73216
-Chest x-ray with cardiomegaly, bedside echo in the ER shows no pericardial effusion however massive cardiomegaly
-cardiology following, input appreciated
-Echo as above
-Rate control strategy, continues to remain in A-Fib for now, but rate has been better controlled
-Patient switched to oral anti-coagulation (5 mg Eliquis)
-Atenolol added for further rate control
# Lymphedema; bilateral LE
-Purulence much better on exam, area erythema has also improved
-Continued Wound care
-Venous Doppler bilateral lower extremity did not show any DVT
#Insomnia
-Melatonin helped the patient fall asleep
-Will continue with the melatonin at night for now
# Alcohol use disorder
-Drinks 3 vodka daily
-No serum alcohol detected
-MSAS protocol discontinued
-Magnesium in normal range
# Diabetes mellitus type 2
-7.1 A1c
-Insulin sliding scale
-Hold metformin
# Essential hypertension
-Hold valsartan/HCTZ, amlodipine
# Hyperlipidemia
-Continue atorvastatin
# Obesity with BMI of 41
# Hypoalbuminemia
CODE STATUS: Full code
DVT Prophylaxis: Eliquis
Anticipated Discharge: 24 - 48 hours
Subjective/Interval History
-
Date of Service: May 25, 2024
Patient is feeling much stronger with being able to move himself forward in bed as well. Looking forward to moving around today. Pain has been better on oxycodone and might be amenable to MRI soon.
Objective Data
-
Labs:
Laboratory Results
05/25/24
07:48
WBC 14.1 H
Hgb 9.3 L
Hct 28.4 L
Plt Count 266
Sodium 136
Potassium 4.0
Chloride 105
Carbon Dioxide 25
BUN 96 H
Creatinine 1.5 H
Glucose 131 H
Calcium 8.4
Vital Signs:
Vital Signs
Temp Pulse Resp BP Pulse Ox
99.0 F 102 18 108/61 96
05/25/24 07:29 05/25/24 09:11 05/25/24 07:29 05/25/24 09:11 05/25/24 07:29
I&O
05/24/24 05/25/24 05/26/24
06:59 06:59 06:59
Output Total 850 / 850 1375 / 1375
Balance -850 / -850 -1375 / -1375
Review of Systems
-
History Source: Patient
Constitutional: Reports Fatigue; Denies Fever
Respiratory: Denies Cough, Trouble Breathing or Wheezing
Cardiac: Denies Chest Pain, Palpitations or Syncope
Abdomen/GI: Denies Abdominal Pain, Nausea or Vomiting
Musculoskeletal: Reports Other (Lower back pain)
Physical Exam
-
General: Well Developed, Conversant and Obese
HEENT: Normocephalic, Atraumatic and Moist Mucous Membranes
Respiratory: Clear to Auscultation and Non Labored Respirations
Cardiac: S1/S2 and Irregular Rhythm (A-Fib)
GI: Soft and Nontender
Musculoskeletal: Edema, Right Lower Extrem, Edema, Left Lower Extrem and Other (Bilateral lower extremities covered with Justus bandages, skin changes not observed today)
Neuro: Awake, Alert and Oriented
Psych: Calm
Data Reviewed
-
Labs: Labs Reviewed by me, Discussed with Physician and Discussed with Patient
--- NOTE | 2024-05-25 11:14 | PTCARENOTE ---
echevarria removed nephro and hosp aware and approved
--- NOTE | 2024-05-25 11:19 | W.PN.ID1 ---
Date of Service
Date of Service: May 25, 2024
Today's Communication
- To complete cefepime (d6 of 7) through tomorrow.
Assessment / Plan
# BLE lymphedema with exacerbation, improving
# BLE cellulitis with infected wounds, improving
# Leukocytosis improving
- pt was compliant with compression up until 1 month prior to admission
-blood cx neg to date.
-Ucx neg.
- wound swabs: polymicrobial organisms
- Continue wound care and compression
- To complete cefepime (d6 of 7) through tomorrow.
# CLIFF - continues to improve
- Nephrology following
# Afib
-Cardiology following
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
Diabetes mellitus
Asthma
Dyslipidemia
Hypertension
Class III obesity BMI 42
Bilateral lower extremity lymphedema
Chief Complaint
-: Cellulitis
Subjective / Review of Systems
at bedside.
Acute back pain better.
Feels well overall.
Abraham just removed.
Vital Signs / Physical Exam
Vital Signs
Vital Signs
Temp Pulse Resp BP Pulse Ox
99.0 F 102 18 108/61 96
05/25/24 07:29 05/25/24 09:11 05/25/24 07:29 05/25/24 09:11 05/25/24 07:29
Physical Exam
Constitutional: No Acute Distress and Comfortable
Cardiovascular: Irregular Rate and S1/S2
Pulmonary: Clear (anteriorly)
Gastrointestinal: Soft, Non Tender, Non Distended and Normal Bowel Sounds
Extremities: Edema (BLE lymphdedema decreasing)
Neurological: AO x 3
Objective Data
Lab Data
Lab Results
05/25/24 07:48
05/25/24 07:48
APTT Cancelled 05/24/24 12:30
Estimated Creat Clear 57 ml/min 05/25/24 07:48
Lactic Acid Cancelled 05/20/24 13:00
Total Bilirubin 1.1 mg/dl (0.2-1.3) 05/21/24 10:19
AST 43 U/L (17-59) 05/21/24 10:19
ALT 21 U/L (0-50) 05/21/24 10:19
Alkaline Phosphatase 195 U/L (38-126) H 05/21/24 10:19
Most recent labs reviewed.
Micro Results:
05/22/24 11:37 Wound Culture - Preliminary
Leg - Left Serratia marcescens
Klebsiella oxytoca
Gram negative bacilli
Group G Streptococcus
Gram Stain - Preliminary
05/20/24 09:27 Blood Culture - Final
Blood/Venous No Growth - Final Report
05/20/24 09:07 Blood Culture - Final
Blood/Venous No Growth - Final Report
05/22/24 11:37 Wound Culture - Preliminary
Leg - Right Gram negative bacilli
Group G Streptococcus
Gram Stain - Preliminary
05/20/24 10:26 Urine Culture - Final
Urine NO GROWTH
05/20/24 CXR Moderate cardiomegaly with likely trace bilateral pleural effusions.
[2024-05-25 11:30] VITALS: BP 92/69
[2024-05-25 11:51] LABS: Glucose - Point of Care 180 mg/dl (70-99)
--- NOTE | 2024-05-25 13:27 | W.PN.CARDCBS ---
Addendum entered and electronically signed by Kush Goodman MD 05/25/24 16:32:
patient seen and examined
Agree with MIGUEL Mireles's notes and assessment
Agree with MIGUEL Mireles's plan
rate controlled on tele
Exam:
heent ncat
jvp 6
cor irregularly irregular
lungs ctab
abd soft nt nd
no ext edema
aao x3
non focal neurologically
Impression:
Atrial fibrillation, new diagnosis
Sepsis with leukocytosis, hypertension with bilateral cellulitis and possible UTI
Acute renal failure with metabolic acidosis and hyperkalemia
Volume overload with component of heart failure with preserved ejection fraction in the setting of acute renal failure
Hyponatremia
Morbid obesity, suspect COLT
Type 2 diabetes mellitus
Hyperlipidemia
Hypertension
Lymphedema
Alcohol use disorder
Poor self care
ECHO 05/20/24: EF 65-70%, mod cLVH, mild RV enlargement, biatrial dilation, mild MR, trace TR, PAP 41mmHg, IV dilated, does not collapse, prominent anterior fat pad present, trivial pericardial effusion noted
Plan:
-he reports his legs are improving, but still have a ways to go. continue abx and wound care per primary service
-HR trends are acceptable in afib on review of tele. average HR ~90s. continue atenolol 25mg daily. unable to uptitrate further at this time given hypotension. overall acceptable rate control at this time
-eliquis started 05/25 AM
-TSH elevated with low free T4, defer treatment to primary service
-echo with results as above
-Cr continues to improve. follow volume status
-ETOH cessation has been advised
-consider sleep apnea eval as OP
-will arrange OP cardiac follow up. at that time if remains in afib can consider for AAD vs CV.
-PT/OT
Original Note:
Today's Communication / Plan
-
continue atenolol
eliquis started today
treatment of abnormal TFTs per primary service
will arrange OP cardiac follow up
Impression / Plan
-
.
Director Radiation Oncology: None, initially seen by Dr Vargas
Impression:
Atrial fibrillation, new diagnosis
Sepsis with leukocytosis, hypertension with bilateral cellulitis and possible UTI
Acute renal failure with metabolic acidosis and hyperkalemia
Volume overload with component of heart failure with preserved ejection fraction in the setting of acute renal failure
Hyponatremia
Morbid obesity, suspect COLT
Type 2 diabetes mellitus
Hyperlipidemia
Hypertension
Lymphedema
Alcohol use disorder
Poor self care
ECHO 05/20/24: EF 65-70%, mod cLVH, mild RV enlargement, biatrial dilation, mild MR, trace TR, PAP 41mmHg, IV dilated, does not collapse, prominent anterior fat pad present, trivial pericardial effusion noted
Plan:
-he reports his legs are improving, but still have a ways to go. continue abx and wound care per primary service
-HR trends are acceptable in afib on review of tele. average HR ~90s. continue atenolol 25mg daily. unable to uptitrate further at this time given hypotension
-eliquis started 05/25 AM
-TSH elevated with low free T4, defer treatment to primary service
-echo with results as above
-Cr continues to improve. follow volume status
-ETOH cessation has been advised
-consider sleep apnea eval as OP
-will arrange OP cardiac follow up. at that time if remains in afib can consider for AAD vs CV.
-PT/OT
Progress Note - Director Radiation Oncology
Subjective
Date of Service: May 25, 2024
no CP, SOB, palpitations.
Objective
Labs:
05/25/24 07:48
05/25/24 07:48
Labs
Hgb 9.3 g/dL (13.0-18.0) L 05/25/24 07:48
Hct 28.4 % (39.0-52.0) L 05/25/24 07:48
Plt Count 266 10^3/uL (130-400) 05/25/24 07:48
APTT Cancelled 05/24/24 12:30
Sodium 136 mmol/L (135-145) 05/25/24 07:48
Potassium 4.0 mmol/L (3.5-5.1) 05/25/24 07:48
BUN 96 mg/dl (9-20) H 05/25/24 07:48
Creatinine 1.5 mg/dL (0.7-1.3) H 05/25/24 07:48
Glucose 131 mg/dl (70-99) H 05/25/24 07:48
Vital Signs and I&O:
Vital Signs
Temp Pulse Resp BP Pulse Ox
98.1 F 104 18 92/69 93
05/25/24 11:30 05/25/24 11:30 05/25/24 11:30 05/25/24 11:30 05/25/24 11:30
Vital Signs
Temp Pulse Resp BP Pulse Ox
98.1 F 104 18 92/69 93
05/25/24 11:30 05/25/24 11:30 05/25/24 11:30 05/25/24 11:30 05/25/24 11:30
Intake & Output
05/23/24 05/24/24 05/25/24 05/26/24
07:59 07:59 07:59 07:59
Intake Total 800 / 800
Output Total 900 / 900 850 / 850 1375 / 1375
Balance -100 / -100 -850 / -850 -1375 / -1375
Physical Exam
Physical Exam
GEN: No distress, awake, alert, oriented x3. obese
HEENT: supple, anicteric, mmm, eomi
LUNGS: CTA B/L anterolaterally, no wheezes
CV: Irreg, S1/S2, no murmur
ABD: soft, BS+, NT/ND
EXT: No cyanosis, clubbing. 4+ edema of B/L LE with ernie wraps in place
NEURO: Gross non-focal
SKIN: Warm, pink, dry. No rash
[2024-05-25] MEDS: NOVOLOG FLEXPEN-LOW RESISTANCE 1 UNITS SC ×2 (13:28→16:56)
--- NOTE | 2024-05-25 13:36 | PN.CDI ---
CDI
- -
CDI:
Physician Documentation Request
Admit Date: 05/20/24 13:05
Dear Doctor Allyson,
Patient admitted for sepsis.
Nursing documentation wound care clinical panel
05/23/24
13:09 05/24/24
13:55 05/24/24
16:47
Pressure injury stage [Present on admission Left Nose] Stage 1 Stage 1 Stage 1
Treatment provided [Present on admission Left Nose] Open to air Open to air Open to air
Physician documentation of the type and location of wounds is required for compliant documentation. Based on the above clinical findings and your assessment, please provide the following in your progress note:
1. Location of the ulcer/wound, including laterality.
2. Type (etiology) of ulcer/wound:
- Diabetic ulcer
- Arterial (ischemic) ulcer
- Traumatic wound
- Venous stasis ulcer
- Pressure (decubitus) ulcer
- Non-healing surgical wound
- Other
- Unable to determine
3. For a non-pressure ulcer, please indicate the depth/severity:
- Limited to the breakdown of skin
- With fat layer exposed
- With necrosis of muscle
- With necrosis of bone
- Other
- Unable to determine
4. If a pressure ulcer, please also include the stage* of the ulcer:
- Stage 1 - Skin intact, non-blanchable redness
- Stage 2 - Partial thickness loss of dermis, includes intact or open blister
- Stage 3 - Full thickness tissue not including bone, tendon or muscle
- Stage 4 - Full thickness tissue loss, including exposed bone, tendon or muscle
- Unstageable - Full thickness loss in which the base of the ulcer is covered by slough (yellow, ybarra, jamil, green or brown) and/or eschar (ybarra, brown or black) in the wound bed.
- Unable to determine
Use of terms such as suspected, likely, concern for, or probable (associated with a specific diagnosis that is being evaluated, monitored, or treated as if it exists) are acceptable and can be coded in the inpatient setting, when documented at the
time of discharge.
Thank you,
Tawnya Dennison RN, BSN
CDI Specialist
Available via [place] text
Please use your independent medical judgment in providing your response.
*Source: National Pressure Ulcer Advisory Panel (NPUAP)
--- NOTE | 2024-05-25 15:01 | WOUNDNOTE ---
L CALF (POSTERIOR LATERAL)
[2024-05-25] MEDS: ULTRAM 50 MG PO (15:04)
[2024-05-25 15:15] VITALS: BP 94/64
--- NOTE | 2024-05-25 15:30 | WOUNDNOTE ---
WO RN note: Patient's Le's wounds and edema improved. Wounds high pressure cleaner and less open. Drainage with less odor and amount. Small purple ecchymotic area noted on L anterior ankle and R medial proximal foot suspect from Justus wrap along with history of
DM. Pedal pulses easily palpable. Skin on heels intact. Heels off bed with pillows with bariatric air chair cushion on top. Coccyx/buttocks ulcers slightly smaller. Patient is on a [employer] Air bed. LE wound care done, silicone border foam applied
to small purple gupta on L anterior ankle and R foot. ABD pad applied on top of L anterior ankles over foam dressing prior to applying knee high Justus wraps for extra padding. Coccyx local care given, patient turned to R semi side lying position with
help from KEO Olguin. Patient reports a fair-good appetite. Updated Dr. Booth and Dr. Collazo Re: small purple ecchymotic area on L anterior ankle and R medial proximal foot, pedal pulses easily palpated; order obtained from Dr. Booth to amend
compression order to remove Justus q hs, Dr. Collazo approved local care and also can try soft heel relief boots. Defer to hospitalist if baseline arterial Doppler indicated. TruVue lite boots left in room. Updated KEO Olguin. Care plan and discharge
instructions updated. Will follow as needed.
--- NOTE | 2024-05-25 15:46 | CM ---
Patient seen at bedside with Sanam
PT rec SNF
Options of SNF's reviewed with patient & .
would like to review list of the SNF's & get back to CM tomorrow with choices.
Referrals need to be entered in [facility]
PLAN: SNF when medically stable - will need to obtain ins auth
[2024-05-25 16:48] LABS: Glucose - Point of Care 158 mg/dl (70-99)
[2024-05-25] MEDS: COLACE 100 MG PO ×2 (16:56→20:36)
[2024-05-25] MEDS: MIRALAX 17 GRAMS PO (16:56)
--- NOTE | 2024-05-25 17:03 | W.PN.NEPH.PH ---
Today's Communication / Plan
-
follow labs
Assessment/Plan
-
IMP:
Possible sepsis with bilateral lower extremity cellulitis
Josephine-Baseline creatinine of 1. 16 March 2023
Hyperkalemia
Significant azotemia
Anion gap metabolic acidosis
Hyponatremia
new A. fib
Type 2 diabetes
Lymphedema
Hypertension
Hyperlipidemia
Asthma
Obesity
Hypoalbuminemia
heart murmur
Plan:
JOSEPHINE-cr improving
azotemia slow to improve
non oliguric with echevarria- VT today
mild hyponatremia resolved
Bp soft with out meds
at some point need diuresis
follow BMP
d/w
-
-
Date of Service: May 25, 2024
CC / HPI / ROS
-
Chief Complaint:
JOSEPHINE
History of Present Illness:
cr slowly improving to 1.5
Na up to 136
BUN down to 96
k normal
BP stable
Review of Systems:
no cp or sob at rest
no fever
Labs
-
Labs:
WBC 14.1 10^3/uL (4.8-10.8) H 05/25/24 07:48
RBC 3.38 10^6/uL (4.70-6.10) L 05/25/24 07:48
Hgb 9.3 g/dL (13.0-18.0) L 05/25/24 07:48
Hct 28.4 % (39.0-52.0) L 05/25/24 07:48
Plt Count 266 10^3/uL (130-400) 05/25/24 07:48
Sodium 136 mmol/L (135-145) 05/25/24 07:48
Potassium 4.0 mmol/L (3.5-5.1) 05/25/24 07:48
Chloride 105 mmol/L (98-107) 05/25/24 07:48
Carbon Dioxide 25 mmol/L (22-30) 05/25/24 07:48
BUN 96 mg/dl (9-20) H 05/25/24 07:48
Creatinine 1.5 mg/dL (0.7-1.3) H 05/25/24 07:48
eGFR 48.25 05/25/24 07:48
Glucose 131 mg/dl (70-99) H 05/25/24 07:48
Calcium 8.4 mg/dl (8.4-10.2) 05/25/24 07:48
Nww-E-[place]aus[place]et Pept 06526 pg/ml 05/20/24 09:07
Albumin 2.5 g/dl (3.5-5.0) L 05/21/24 10:19
Physical Exam
-
Vital Signs:
Vital Signs
Temp Pulse Resp BP Pulse Ox
99.0 F 97 16 94/64 95
05/25/24 15:15 05/25/24 15:15 05/25/24 15:15 05/25/24 15:15 05/25/24 15:15
Cardiovascular:: Regular rate and rhythm
Respiratory:: Bilateral: CTA
Lung Excursion:: Normal
Abdomen:: Nontender and Soft
Extremity Edema:: +3: Bilateral:
Echevarria Catheter: No
[2024-05-25 19:52] VITALS: BP 99/59
[2024-05-25] MEDS: SENOKOT 17.2 MG PO (20:35)
[2024-05-25 21:50] LABS: Glucose - Point of Care 184 mg/dl (70-99)
[2024-05-25] MEDS: MELATONIN 5 MG PO (22:21)
[2024-05-25 23:22] VITALS: BP 102/56
[2024-05-26] VITALS (8 sets, daily range): BP systolic 101–110; BP diastolic 56–68; PULSE 89; O2SAT 94; BMI 42.8
[2024-05-26] MEDS: ROXICODONE 5 MG PO ×2 (04:26→08:36)
[2024-05-26] MEDS: MAXIPIME 1000 MG IV ×3 (05:15→17:42)
[2024-05-26] MEDS: STERILE WATER FOR INJECTION 10 ML IV ×3 (05:15→17:42)
--- NOTE | 2024-05-26 07:10 | W.PN.HOSP.TC ---
Addendum entered and electronically signed by Ahsa Valadez MD, Resident 05/26/24 17:02:
CDI Query:
#Erythematous irritation noted on left side of nose possibly due to Stage 1 Ulceration
-unable to determine the etiology of the wound. Probably just due to irritation or other reasons
-limited to just redness and breakdown of skin
-Treatment with leaving it open to air
Addendum entered and electronically signed by Luz Collazo MD 05/26/24 15:55:
I saw and evaluated the patient. I reviewed the resident�s note and agree with findings and plan as documented in the resident�s note.
was at bedside
Patient was overall feeling well except for his back pain
On examination his tenderness is mostly in the lumbar spine
Abdomen exam unremarkable
Cardiovascular system S1-S2 irregular
Chest clear to auscultation
Patient states that he cannot lay flat for the MRI. Oxycodone 10 mg was given earlier today to see if he can lay flat with that if so he can go with the same dose of medicines for MRI
Creatinine is stable. Lasix started
Antibiotics course is being completed today
Continue to follow BMP
Reviewed with at bedside
Original Note:
Today's Communication/Plan
-
Patient to go for MRI to check for cause of his lower back pain
Assessment / Plan
Assessment / Plan
Asssessment:
73 year old male with a past medical history of hypertension, hyperlipidemia, bilateral lower extremity lymphedema and type 2 diabetes without use of Insulin presented in the emergency department with concerns of not feeling well for last few weeks.
Patient was found to have have sepsis, CLIFF, new onset A-fib, and purulent discharge from bilateral lower extremity lymphedema. His sepsis was thought to have been caused by Bilateral LE cellulitis versus concurrent UTI. Patient's breathing has
improved and is currently on room air. Patient was hypotensive requiring Levophed before but now his blood pressure is stabilizing and he is off the Levophed. Patient's labs show marked improvement of his infection. Has improvement in his lower
extremity cellulitis as well. Patient will try pain medications for his back pain. Patient tried to get oxycodone which did help with his pain. Will order MRI of lower back when patient is able to tolerate laying flat.
Plan:
05/20/24 CXR Moderate cardiomegaly with likely trace bilateral pleural effusions.
05/21/24: US Renal Only W/O Bladder: Subcentimeter nonobstructing bilateral renal calculi. No hydronephrosis.
05/21/24: US Periph Venous LOWER Ext Tez: No evidence of deep venous thrombosis bilaterally. Please note the bilateral peroneal and posterior tibial veins are not well visualized.
ECHO (05/20/24): CONCLUSIONS
Vigorous left ventricular systolic function with moderate concentric left
ventricular hypertrophy
Left ventricular ejection fraction visually estimated 65-70%
Mildly in enlarged right ventricle with low normal RV systolic function
Biatrial dilatation
Trace-mild mitral regurgitation
Trileaflet sclerotic aortic valve without stenosis or regurgitation
Trace tricuspid regurgitation
Estimated pulmonary artery pressure of 41 mmHg assuming a right atrial pressure
of 15 mmHg. The IVC is dilated and does not collapse.
Prominent anterior fat pad present. Trivial pericardial effusion without
evidence of hemodynamic compromise.
No prior study available for comparison
# Sepsis -likely due to Bilateral LE cellulitis
-Blood culture- no growth
-urine culture showed no growth, UTI most likely not the cause sepsis
-Continue with current wound care as cellulitis continues to improve
-Patient now off of Levophed as blood pressure has been better controlled
-ID following, input appreciated
-Wound culture grew gram-negative group G Streptococcus with sensitivities to penicillin. Also grew Serratia marcescens and Klebsiella oxytoca.
-Will await any changes that ID wants to make regarding antibiotics
-Continue IV cefepime, dose changed to 1 g every 8 as per pharmacy recommendation
-Continue monitoring CBC
-Patient downgraded from IMU to telemetry
# CLIFF with Metabolic Acidosis and Hyperkalemia
-Potassium has normalized
-Creatinine continues improving, now at 1.5
-BP has been better off pressors
-Abraham in place, Renal US did not show any abnormality
-Nephro following, input appreciated
-Discontinued IV fluids
-Avoid nephrotoxins
-Hold home potassium chloride: Lokelma as needed
#Coccyx stage 2 pressure injuries along with MASD
-developed these at homes as he sleeps in a recliner chair at home
-continue to be followed by wound care nurse
-follow up at wound care center upon discharge
-VN and Hospital bed with air mattress if home or air mattress if at rehab/SNF
-Continue wound care management while in the hospital
-Pain control as needed- will give Tramadol/Tylenol for pain, oxycodone as needed
-Tramadol causing patient to be groggy, may need to avoid
# New onset lower back pain
-Patient states this started around yesterday when he was trying to get the V/Q scan
-Patient unable to lie flat due to the pain
-As pain resolves may need to get further imaging including MRI
-Lidocaine patch did not help resolve the pain, patient has not tried anything further
-Counseled patient that he can ask for pain medications if needed
-Patient taking oxycodone as needed
-Scheduled for MRI today, patient anxious but willing to try today
-MRI lumbar with and without contrast
# New onset atrial fibrillation
-proBNP 35264
-Chest x-ray with cardiomegaly, bedside echo in the ER shows no pericardial effusion however massive cardiomegaly
-cardiology following, input appreciated
-Echo as above
-Rate control strategy, continues to remain in A-Fib for now, but rate has been better controlled
-Patient switched to oral anti-coagulation (5 mg Eliquis)
-Atenolol added for further rate control
# Lymphedema; bilateral LE
-Purulence much better on exam, area erythema has also improved
-Continued Wound care
-Venous Doppler bilateral lower extremity did not show any DVT
#Insomnia
-Melatonin helped the patient fall asleep
-Will continue with the melatonin at night for now
# Alcohol use disorder
-Drinks 3 vodka daily
-No serum alcohol detected
-MSAS protocol discontinued
-Magnesium in normal range
# Diabetes mellitus type 2
-7.1 A1c
-Insulin sliding scale
-Hold metformin
# Essential hypertension
-Hold valsartan/HCTZ, amlodipine
# Hyperlipidemia
-Continue atorvastatin
# Obesity with BMI of 41
# Hypoalbuminemia
CODE STATUS: Full code
DVT Prophylaxis: Eliquis
Anticipated Discharge: Within 24 hours
Subjective/Interval History
-
Date of Service: May 26, 2024
Patient was a bit frustrated today and a bit hesitant about his upcoming MRI. Wants nursing to tell him when he will be going down for MRI so he can mentally prepare. Says tramadol was causing him to be groggy and not mentally sound, while
oxycodone worked much better for him. He wants to get out of bed and walk around a lot more as well as he is feeling much stronger.
Objective Data
-
Labs:
Laboratory Results
05/26/24
06:00
WBC Pending
Hgb Pending
Hct Pending
Plt Count Pending
Sodium Pending
Potassium Pending
Chloride Pending
Carbon Dioxide Pending
BUN Pending
Creatinine Pending
Glucose Pending
Calcium Pending
Vital Signs:
Vital Signs
Temp Pulse Resp BP Pulse Ox
98.1 F 95 18 102/62 94
05/26/24 03:40 05/26/24 03:40 05/26/24 03:40 05/26/24 03:40 03/14/25 03:40
I&O
05/25/24 05/26/24 05/27/24
06:59 06:59 06:59
Intake Total 420 / 420
Output Total 1375 / 1375 900 / 900
Balance -1375 / -1375 -480 / -480
Review of Systems
-
History Source: Patient
Constitutional: Reports Fatigue; Denies Fever
Respiratory: Denies Cough, Trouble Breathing or Wheezing
Cardiac: Denies Chest Pain, Palpitations or Syncope
Abdomen/GI: Denies Abdominal Pain, Nausea or Vomiting
Musculoskeletal: Reports Other (Lower back pain)
Psych: Reports Anxious
Physical Exam
-
General: Well Developed, Conversant and Obese
HEENT: Normocephalic, Atraumatic and Moist Mucous Membranes
Respiratory: Clear to Auscultation and Non Labored Respirations
Cardiac: S1/S2 and Irregular Rhythm (A-Fib)
GI: Soft and Nontender
Musculoskeletal: Edema, Right Lower Extrem, Edema, Left Lower Extrem and Other (Bilateral lower extremities covered with Justus bandages, skin changes not observed today)
Neuro: Awake, Alert and Oriented
Psych: Calm
Data Reviewed
-
Labs: Labs Reviewed by me, Discussed with Physician, Discussed with Nurse and Discussed with Patient
[2024-05-26 07:31] LABS: Glucose - Point of Care 145 mg/dl (70-99)
[2024-05-26 08:20] LABS: Hematocrit 27.9 % (39.0-52.0); Hemoglobin 9.1 g/dL (13.0-18.0); Mean Corp Hgb Conc. 32.6 g/dL (33.0-37.0); Mean Corpuscular Hgb 27.4 pg (27.0-31.0); Mean Platelet Volume 9.7 fL (7.4-10.4); Platelet Count 247 10^3/uL (130-400); Red Blood Cell Count 3.32 10^6/uL (4.70-6.10); Red Cell Dist. Width 15.6 % (11.5-14.5); White Blood Cell Count 14.7 10^3/uL (4.8-10.8)
[2024-05-26] MEDS: SENOKOT 17.2 MG PO ×2 (08:35→20:09)
[2024-05-26] MEDS: MIRALAX 17 GRAMS PO (08:36)
[2024-05-26] MEDS: LIPITOR 20 MG PO (08:36)
[2024-05-26] MEDS: COLACE 100 MG PO ×2 (08:38→20:09)
[2024-05-26] MEDS: DAKIN'S SOLUTION 0.125% 1/4 STRENGTH 473 ML TOPICAL (08:38)
[2024-05-26] MEDS: DESENEX/MITRAZOL/ZEASORB 1 APPLIC TOPICAL ×2 (08:39→20:10)
[2024-05-26] MEDS: ELIQUIS 5 MG PO ×2 (08:40→20:09)
[2024-05-26] MEDS: LIDOCAINE 4% PATCH 1 PATCH TOPICAL (08:40)
[2024-05-26] MEDS: HYDROPHOR 1 APPLIC TOPICAL (08:40)
[2024-05-26] MEDS: VITAMIN D3 (cholecalciferol) 25 MCG PO (08:41)
[2024-05-26] MEDS: TENORMIN 25 MG PO (08:41)
[2024-05-26] MEDS: NOVOLOG FLEXPEN-LOW RESISTANCE SC (08:42)
[2024-05-26 08:59] LABS: Blood Urea Nitrogen 91 mg/dl (9-20); Calcium 8.7 mg/dl (8.4-10.2); Carbon Dioxide 25 mmol/L (22-30); Chloride 104 mmol/L (98-107); Estimated Creatinine Clearance 54 ml/min; Glucose 137 mg/dl (70-99); Potassium 4.1 mmol/L (3.5-5.1); Sodium 136 mmol/L (135-145); eGFR 44.65
[2024-05-26 09:18] LABS: TSH Reflex To Free T4 5.78 uIU/ml (0.47-4.68)
[2024-05-26 10:27] LABS: Free T4 1.39 ng/dl (0.78-2.19)
--- NOTE | 2024-05-26 11:23 | W.PN.ID1 ---
Date of Service
Date of Service: May 26, 2024
Today's Communication
Complete course of cefepime today.
Assessment / Plan
# BLE lymphedema with exacerbation, improving
# BLE cellulitis with infected wounds, improving
# Leukocytosis improving
- pt was compliant with compression up until 1 month prior to admission
-blood cx neg to date.
-Ucx neg.
- wound swabs: polymicrobial organisms
- Continue wound care and compression. Patient counseled on necessity of ongoing compression following discharge.
- Completing 7-day course of cefepime today. Thereafter observe off of antibiotics.
# CLIFF - improved. Appears likely near baseline.
- Nephrology following
# Afib
-Cardiology following
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
Diabetes mellitus
Asthma
Dyslipidemia
Hypertension
Class III obesity BMI 42
Bilateral lower extremity lymphedema
Chief Complaint
-: Cellulitis and Other (Bilateral lower extremity lymphedema)
Subjective / Review of Systems
Review of Systems: No Fever and No Chills
Vital Signs / Physical Exam
Vital Signs
Vital Signs
Temp Pulse Resp BP Pulse Ox
98.5 F 94 18 103/63 95
05/26/24 07:14 05/26/24 07:14 05/26/24 07:14 05/26/24 07:14 05/26/24 10:17
Physical Exam
Constitutional: No Acute Distress and Comfortable
Cardiovascular: Irregular Rate and S1/S2
Pulmonary: Clear (anteriorly)
Gastrointestinal: Soft, Non Tender, Non Distended and Normal Bowel Sounds
Extremities: Edema (BLE lymphdedema decreasing)
Wound: Other (Bilateral lower extremity wounds dressed. Small amount of serous drainage/strikethrough on bandage)
Neurological: AO x 3
Objective Data
Lab Data
Lab Results
05/26/24 07:49
05/26/24 07:49
APTT Cancelled 05/24/24 12:30
Estimated Creat Clear 54 ml/min 05/26/24 07:49
Lactic Acid Cancelled 05/20/24 13:00
Total Bilirubin 1.1 mg/dl (0.2-1.3) 05/21/24 10:19
AST 43 U/L (17-59) 05/21/24 10:19
ALT 21 U/L (0-50) 05/21/24 10:19
Alkaline Phosphatase 195 U/L (38-126) H 05/21/24 10:19
Most recent labs reviewed.
Micro Results:
05/22/24 11:37 Wound Culture - Final
Leg - Right Serratia marcescens
Alcaligenes Faecalis
Klebsiella oxytoca
Group G Streptococcus
Gram Stain - Final
05/22/24 11:37 Wound Culture - Final
Leg - Left Serratia marcescens
Alcaligenes Faecalis
Klebsiella oxytoca
Group G Streptococcus
Gram Stain - Final
05/20/24 09:27 Blood Culture - Final
Blood/Venous No Growth - Final Report
05/20/24 09:07 Blood Culture - Final
Blood/Venous No Growth - Final Report
05/20/24 10:26 Urine Culture - Final
Urine NO GROWTH
05/20/24 CXR Moderate cardiomegaly with likely trace bilateral pleural effusions.
[2024-05-26 11:57] LABS: Glucose - Point of Care 196 mg/dl (70-99)
--- NOTE | 2024-05-26 11:58 | W.PN.NEPH.PH ---
Today's Communication / Plan
-
follow BMP
Assessment/Plan
-
IMP:
Possible sepsis with bilateral lower extremity cellulitis
Josephine-Baseline creatinine of 1. 16 March 2023
Hyperkalemia
Significant azotemia
Anion gap metabolic acidosis
Hyponatremia
new A. fib
Type 2 diabetes
Lymphedema
Hypertension
Hyperlipidemia
Asthma
Obesity
Hypoalbuminemia
heart murmur
Plan:
follow BMP
lasix 40mg po daily
-
-
Date of Service: May 26, 2024
CC / HPI / ROS
-
Chief Complaint:
JOSEPHINE
History of Present Illness:
JOSEPHINE/Cr stable 1.6
Na up to 136 stable
BUN down to 91
k normal
BP stable
completed Abx
Review of Systems:
no cp or sob at rest
no fever
Labs
-
Labs:
WBC 14.7 10^3/uL (4.8-10.8) H 05/26/24 07:49
RBC 3.32 10^6/uL (4.70-6.10) L 05/26/24 07:49
Hgb 9.1 g/dL (13.0-18.0) L 05/26/24 07:49
Hct 27.9 % (39.0-52.0) L 05/26/24 07:49
Plt Count 247 10^3/uL (130-400) 05/26/24 07:49
Sodium 136 mmol/L (135-145) 05/26/24 07:49
Potassium 4.1 mmol/L (3.5-5.1) 05/26/24 07:49
Chloride 104 mmol/L (98-107) 05/26/24 07:49
Carbon Dioxide 25 mmol/L (22-30) 05/26/24 07:49
BUN 91 mg/dl (9-20) H 05/26/24 07:49
Creatinine 1.6 mg/dL (0.7-1.3) H 05/26/24 07:49
eGFR 44.65 05/26/24 07:49
Glucose 137 mg/dl (70-99) H 05/26/24 07:49
Calcium 8.7 mg/dl (8.4-10.2) 05/26/24 07:49
Ifp-Q-Cihevvtvdnt Pept 24909 pg/ml 05/20/24 09:07
Albumin 2.5 g/dl (3.5-5.0) L 05/21/24 10:19
Physical Exam
-
Vital Signs:
Vital Signs
Temp Pulse Resp BP Pulse Ox
98.5 F 94 18 103/63 95
05/26/24 07:14 05/26/24 07:14 05/26/24 07:14 05/26/24 07:14 05/26/24 10:17
Cardiovascular:: Regular rate and rhythm
Respiratory:: Bilateral: CTA
Lung Excursion:: Normal
Abdomen:: Nontender and Soft
Bowel Sounds:: Normal
Extremity Edema:: None: Bilateral:
[2024-05-26] MEDS: NOVOLOG FLEXPEN-LOW RESISTANCE 1 UNITS SC ×2 (12:25→17:41)
[2024-05-26] MEDS: ROXICODONE 10 MG PO (12:38)
[2024-05-26] MEDS: LASIX 40 MG PO (13:15)
--- NOTE | 2024-05-26 15:36 | CM ---
Reviewed the chart notes. [facility] and [facility] were the patient's picks. [facility] evaluating. [facility] no beds. CM continues to be available to patient/family and is monitoring medical plan for needs at discharge.
Plan: Discharge to SNF/rehab once bed secured and precert obtained.
[2024-05-26 16:53] LABS: Glucose - Point of Care 165 mg/dl (70-99)
--- NOTE | 2024-05-26 19:21 | PTCARENOTE ---
Prior to getting Lumbar MRI. As per Dr. Valadez. Notify MD for oxy 15mg X 1 dose.
[2024-05-26 21:35] LABS: Glucose - Point of Care 189 mg/dl (70-99)
[2024-05-26] MEDS: MELATONIN 5 MG PO (22:02)
[2024-05-27 03:22] VITALS: BP 120/72
[2024-05-27 05:35] VITALS: BMI 43.3
[2024-05-27 07:46] LABS: Glucose - Point of Care 146 mg/dl (70-99)
[2024-05-27 07:50] VITALS: BP 110/64
[2024-05-27] MEDS: NOVOLOG FLEXPEN-LOW RESISTANCE SC (07:51)
[2024-05-27 09:25] LABS: Blood Urea Nitrogen 93 mg/dl (9-20); Calcium 8.6 mg/dl (8.4-10.2); Carbon Dioxide 24 mmol/L (22-30); Chloride 102 mmol/L (98-107); Estimated Creatinine Clearance 54 ml/min; Glucose 143 mg/dl (70-99); Potassium 4.1 mmol/L (3.5-5.1); Sodium 134 mmol/L (135-145); eGFR 44.65
[2024-05-27] MEDS: SENOKOT 17.2 MG PO ×2 (09:25→20:57)
[2024-05-27] MEDS: MIRALAX 17 GRAMS PO (09:25)
[2024-05-27] MEDS: ELIQUIS 5 MG PO ×2 (09:26→20:57)
[2024-05-27] MEDS: LASIX 40 MG PO (09:26)
[2024-05-27] MEDS: VITAMIN D3 (cholecalciferol) 25 MCG PO (09:26)
[2024-05-27] MEDS: LIPITOR 20 MG PO (09:26)
[2024-05-27] MEDS: COLACE 100 MG PO ×2 (09:26→20:57)
[2024-05-27] MEDS: LIDOCAINE 4% PATCH 1 PATCH TOPICAL (09:26)
[2024-05-27] MEDS: TENORMIN 25 MG PO (09:26)
[2024-05-27] MEDS: HYDROPHOR 1 APPLIC TOPICAL (09:32)
[2024-05-27] MEDS: DESENEX/MITRAZOL/ZEASORB 1 APPLIC TOPICAL ×2 (09:33→20:58)
[2024-05-27] MEDS: DAKIN'S SOLUTION 0.125% 1/4 STRENGTH 473 ML TOPICAL (09:35)
--- NOTE | 2024-05-27 10:25 | W.PN.NEPH.PH ---
Today's Communication / Plan
-
follow BMP
Assessment/Plan
-
IMP:
Possible sepsis with bilateral lower extremity cellulitis
Josephine-Baseline creatinine of 1. 16 March 2023
Hyperkalemia
Significant azotemia
Anion gap metabolic acidosis
Hyponatremia
new A. fib
Type 2 diabetes
Lymphedema
Hypertension
Hyperlipidemia
Asthma
Obesity
Hypoalbuminemia
heart murmur
Plan:
follow BMP
continue lasix 40mg po daily
-
-
Date of Service: May 27, 2024
CC / HPI / ROS
-
Chief Complaint:
JOSEPHINE
History of Present Illness:
JOSEPHINE/Cr stable 1.6
Na 134
k normal
BP stable
completed Abx
Review of Systems:
no cp or sob at rest
no fever
Labs
-
Labs:
WBC 14.7 10^3/uL (4.8-10.8) H 05/26/24 07:49
RBC 3.32 10^6/uL (4.70-6.10) L 05/26/24 07:49
Hgb 9.1 g/dL (13.0-18.0) L 05/26/24 07:49
Hct 27.9 % (39.0-52.0) L 05/26/24 07:49
Plt Count 247 10^3/uL (130-400) 05/26/24 07:49
Sodium 134 mmol/L (135-145) L 05/27/24 08:31
Potassium 4.1 mmol/L (3.5-5.1) 05/27/24 08:31
Chloride 102 mmol/L (98-107) 05/27/24 08:31
Carbon Dioxide 24 mmol/L (22-30) 05/27/24 08:31
BUN 93 mg/dl (9-20) H 05/27/24 08:31
Creatinine 1.6 mg/dL (0.7-1.3) H 05/27/24 08:31
eGFR 44.65 05/27/24 08:31
Glucose 143 mg/dl (70-99) H 05/27/24 08:31
Calcium 8.6 mg/dl (8.4-10.2) 05/27/24 08:31
Foa-F-Rtjmjlhhmau Pept 73070 pg/ml 05/20/24 09:07
Albumin 2.5 g/dl (3.5-5.0) L 05/21/24 10:19
Physical Exam
-
Vital Signs:
Vital Signs
Temp Pulse Resp BP Pulse Ox
98.8 F 90 18 110/64 96
05/27/24 07:50 05/27/24 07:50 05/27/24 07:50 05/27/24 07:50 05/27/24 07:50
Cardiovascular:: Regular rate and rhythm
Respiratory:: Bilateral: Coarse
Lung Excursion:: Normal
Abdomen:: Nontender and Soft
Bowel Sounds:: Normal
Extremity Edema:: +1: Bilateral:
[2024-05-27] MEDS: ROXICODONE 15 MG PO (10:55)
--- NOTE | 2024-05-27 13:08 | W.PN.HOSP.TC ---
Addendum entered and electronically signed by Luz Collazo MD 05/27/24 14:02:
MRI noted. Will discuss with ID
Original Note:
Today's Communication/Plan
-
MRI
Lasix
Discharge planning after MRI
Assessment / Plan
Assessment / Plan
73 y/o with CLIFF on admission.
Cardiovascular system S1-S2 appreciated irregular
Chest decreased but clear to auscultation
Abdomen soft and nontender
Lower extremities were wrapped , edmema
Echo 05/20/2024-vigorous LV systolic function and moderate concentric LVH. EF 65 to 70%. Mildly enlarged RV with low normal RV systolic function. Biatrial dilatation. Trace MR. Trace TR. Pulmonary artery pressure 41 mmHg. IVC is dilated and
does not collapse. Trivial pericardial effusion
05/20/24 CXR Moderate cardiomegaly with likely trace bilateral pleural effusions.
05/21/24: US Renal Only W/O Bladder: Subcentimeter nonobstructing bilateral renal calculi. No hydronephrosis.
05/21/24: US Periph Venous LOWER Ext Tez: No evidence of deep venous thrombosis bilaterally. Please note the bilateral peroneal and posterior tibial veins are not well visualized.
# Sepsis
Likely source cellulitis
UTI ruled out
Completed 7 days of cefepime
Blood cultures negative
Wound care
Venous Dopplers negative for DVT
Wound care and compression therapy with Justus bandages.
# Low back pain- Get MRI if he allows after pain control.Reasoning explained to pt. premedicated the patient with oxycodone
# Hypotension-treated as septic shock. Off pressors
# Acute kidney injury with metabolic acidosis and hyperkalemia
Hyperkalemia resolved
Possibly prerenal secondary to poor p.o. intake. Was also using ibuprofen 3 days prior to admission
3+ albumin noted. FENA low
Both And Nongap metabolic acidosis-Resolved.
Abraham catheter placed in the ER-removed
Hold valsartan, NSAIDs, Hydrochlorothiazide, Potassium, Torsemide, Metformin
Lasix started
Intake output charting
proBNP 10,600
Nephrology following.
# Hyponatremia -getting better-type unclear. Volume assessment difficult but probably intravascularly volume depleted.
Possibly an element of prerenal and also SIADH given hypotension.
# New onset atrial fibrillation
Heparin drip changed to Eliquis
Rates are OK
Atenolol restarted.
Echo 325-vigorous LV systolic function with moderate concentric LVH. Left ventricular ejection fraction 65 to 70%. Mildly enlarged RV with low normal RV systolic function. Biatrial dilatation. Trace MR. Trace TR. Pulmonary artery pressure 41
mmHg. IVC is dilated and does not collapse. Trivial pericardial effusion
# Abnormal thyroid function test-repeat as outpatient in 6 weeks
# 6.1 X3.3X 4.3 cm solid lesion with internal vascularity in the proximal right thigh with differential including suspicious lymph node or soft tissue neoplasm- Outpatient work up. aware
# Diabetes-hemoglobin A1c 7.1 .Hold metformin. Accu-Cheks and sliding scale coverage
# Alcohol use disorder drinks 3 glass of Vodka every day. MSAS and thiamine replacement
# Hypertension-hold valsartan, hydrochlorothiazide, amlodipine . Atenolol restarted.
# Hyperlipidemia-continue atorvastatin
# Stage II pressure injury coccygeal area with MASD. Present on admission
# Chronic lymphedema bilateral lower extremity
# Insomnia-melatonin started
# Obesity with a BMI of 41
# Hypoalbuminemia
# Chronic lymphedema bilateral lower extremities
# DVT prophylaxis- Eliquis
# Full code
D/W RN
Discussed with at bedside in detail
Discussed with nephrology
Anticipated Discharge: > 48 hours
Subjective/Interval History
-
Date of Service: May 27, 2024
Objective Data
-
Labs:
Laboratory Results
05/27/24
08:31
Sodium 134 L
Potassium 4.1
Chloride 102
Carbon Dioxide 24
BUN 93 H
Creatinine 1.6 H
Glucose 143 H
Calcium 8.6
Vital Signs:
Vital Signs
Temp Pulse Resp BP Pulse Ox
98.8 F 90 18 110/64 96
05/27/24 07:50 05/27/24 07:50 05/27/24 07:50 05/27/24 07:50 05/27/24 07:50
I&O
05/26/24 05/27/24 05/28/24
06:59 06:59 06:59
Intake Total 420 / 420 660 / 660
Output Total 900 / 900 925 / 925
Balance -480 / -480 -265 / -265
[2024-05-27 13:56] LABS: Glucose - Point of Care 155 mg/dl (70-99)
[2024-05-27] MEDS: CITROMA 150 ML PO (14:26)
[2024-05-27] MEDS: NOVOLOG FLEXPEN-LOW RESISTANCE 1 UNITS SC (14:38)
[2024-05-27 15:09] VITALS: BP 93/59
--- NOTE | 2024-05-27 15:39 | W.PN.ID1 ---
Date of Service
Date of Service: May 27, 2024
Today's Communication
- restarted cefepime 2 gm IV q12 - likely for a 6 week course
- patient and his currently refusing biopsy, miller will discuss with her colleagues
Assessment / Plan
# Discitis of the L2-L3 disc space without evidence of osteomyelitis
- inflammatory vs infectious
- recommend biopsy particularly with chronic wounds, unknown pathogen
- miller objects and Kush in agreement at this time; miller states she will review with her colleagues
- restarted cefepime 2 gm IV q12 - likely for a 6 week course
- if biopsy not undertaken then may consider addition of vancomycin, note patient had a dose of vancomycin on 05/20
# BLE lymphedema with exacerbation, improving
# BLE cellulitis with infected wounds, improving
# Leukocytosis improving
- pt was compliant with compression up until 1 month prior to admission
-blood cx neg to date.
- Ucx neg.
- wound swabs: polymicrobial organisms
- Continue wound care and compression. Patient counseled on necessity of ongoing compression following discharge.
- completed 7 day course of cefepime
# CLIFF - improved. Appears likely near baseline.
- Nephrology following
# Afib
-Cardiology following
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
Diabetes mellitus
Asthma
Dyslipidemia
Hypertension
Class III obesity BMI 42
Bilateral lower extremity lymphedema
Chief Complaint
-: Cellulitis and Other (Bilateral lower extremity lymphedema)
Subjective / Review of Systems
afebrile
bp stable
reviewed with patient Kush and his Miller on the phone together. 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 I explained the situation and that we see discitis which may or may not be infectious and that the adjacent bone appears to
be spared. Still it is a high risk location and could progress. I explained that the standard of care would be to proceed with biopsy and that if cultures were negative it could indicate that the cefepime is effective therapy, alternatively we may
find a different pathogen particularly as he has chronic wounds. Miller objects to the plan 'in 35 years Angela never seen that done and I work at the [facility] [employer], its not the standard of care.' Explained that risks of not doing the
workup would include progression, epidural abscess, meningitis, etc. It is not an urgent procedure but it is preferable to finding out weeks down the road that Kush is progressing or no improving at the rate expected. Miller and Kush both
express understanding. Miller states that she will speak with her colleagues 'I just dont think its necessary.' We can speak further tomorrow.
Note that he did have a single dose of vancomycin on 05/20 also.
Vital Signs / Physical Exam
Vital Signs
Vital Signs
Temp Pulse Resp BP Pulse Ox
98.8 F 90 18 110/64 96
05/27/24 07:50 05/27/24 07:50 05/27/24 07:50 05/27/24 07:50 05/27/24 07:50
Physical Exam
Constitutional: No Acute Distress
Cardiovascular: Regular Rate and S1/S2; Negative Murmur or Rub
Pulmonary: Clear and Symmetric; Negative Wheezes or Rales
Gastrointestinal: Soft, Non Tender, Non Distended and Normal Bowel Sounds
Musculoskeletal: Other (lumbar spinal tenderness adjacent to the midline)
Skin: Warm and Dry; Negative Rash or Jaundice
Objective Data
Lab Data
Lab Results
05/26/24 07:49
05/27/24 08:31
APTT Cancelled 05/24/24 12:30
Estimated Creat Clear 54 ml/min 05/27/24 08:31
Lactic Acid Cancelled 05/20/24 13:00
Total Bilirubin 1.1 mg/dl (0.2-1.3) 05/21/24 10:19
AST 43 U/L (17-59) 05/21/24 10:19
ALT 21 U/L (0-50) 05/21/24 10:19
Alkaline Phosphatase 195 U/L (38-126) H 05/21/24 10:19
Most recent labs reviewed.
Micro Results:
05/22/24 11:37 Wound Culture - Final
Leg - Right Serratia marcescens
Alcaligenes Faecalis
Klebsiella oxytoca
Group G Streptococcus
Gram Stain - Final
05/22/24 11:37 Wound Culture - Final
Leg - Left Serratia marcescens
Alcaligenes Faecalis
Klebsiella oxytoca
Group G Streptococcus
Gram Stain - Final
05/20/24 09:27 Blood Culture - Final
Blood/Venous No Growth - Final Report
05/20/24 09:07 Blood Culture - Final
Blood/Venous No Growth - Final Report
05/20/24 10:26 Urine Culture - Final
Urine NO GROWTH
05/20/24 CXR Moderate cardiomegaly with likely trace bilateral pleural effusions.
[2024-05-27 17:02] LABS: Glucose - Point of Care 200 mg/dl (70-99)
[2024-05-27] MEDS: FLUSH (NSS) 2 FLUSH IV (17:40)
[2024-05-27] MEDS: STERILE WATER FOR INJECTION 10 ML IV (17:40)
[2024-05-27] MEDS: MAXIPIME 2000 MG IV (17:40)
[2024-05-27] MEDS: NOVOLOG FLEXPEN-LOW RESISTANCE 2 UNITS SC (17:42)
[2024-05-27 19:20] VITALS: BP 120/73
[2024-05-27] MEDS: MELATONIN 5 MG PO (20:57)
[2024-05-27 22:15] VITALS: BP 139/72
[2024-05-27 22:24] LABS: Glucose - Point of Care 165 mg/dl (70-99)
[2024-05-28 02:25] VITALS: BP 133/81
[2024-05-28] MEDS: MAXIPIME 2000 MG IV ×2 (04:17→16:28)
[2024-05-28] MEDS: STERILE WATER FOR INJECTION 10 ML IV ×2 (04:18→16:27)
[2024-05-28 05:14] LABS: Hematocrit 28.6 % (39.0-52.0); Hemoglobin 9.3 g/dL (13.0-18.0); Mean Corp Hgb Conc. 32.5 g/dL (33.0-37.0); Mean Corpuscular Hgb 27.6 pg (27.0-31.0); Mean Corpuscular Volume 84.9 fL (80.0-94.0); Mean Platelet Volume 9.7 fL (7.4-10.4); Platelet Count 256 10^3/uL (130-400); Red Blood Cell Count 3.37 10^6/uL (4.70-6.10); Red Cell Dist. Width 15.8 % (11.5-14.5); White Blood Cell Count 16.7 10^3/uL (4.8-10.8)
[2024-05-28 05:24] VITALS: BMI 42.9
[2024-05-28 05:34] LABS: Blood Urea Nitrogen 88 mg/dl (9-20); Calcium 8.8 mg/dl (8.4-10.2); Carbon Dioxide 25 mmol/L (22-30); Chloride 104 mmol/L (98-107); Estimated Creatinine Clearance 61 ml/min; Glucose 151 mg/dl (70-99); Potassium 4.3 mmol/L (3.5-5.1); Sodium 137 mmol/L (135-145); eGFR 52.41
[2024-05-28 07:32] VITALS: BP 130/76
[2024-05-28 07:39] LABS: Glucose - Point of Care 139 mg/dl (70-99)
[2024-05-28] MEDS: NOVOLOG FLEXPEN-LOW RESISTANCE SC ×3 (07:41→17:14)
[2024-05-28] MEDS: LIDOCAINE 4% PATCH 1 PATCH TOPICAL (08:09)
[2024-05-28] MEDS: ELIQUIS 5 MG PO ×2 (08:09→21:16)
[2024-05-28] MEDS: VITAMIN D3 (cholecalciferol) 25 MCG PO (08:10)
[2024-05-28] MEDS: LASIX 40 MG PO (08:10)
[2024-05-28] MEDS: SENOKOT PO ×2 (08:10→21:06)
[2024-05-28] MEDS: LIPITOR 20 MG PO (08:10)
[2024-05-28] MEDS: TENORMIN 25 MG PO (08:10)
[2024-05-28] MEDS: MIRALAX PO (08:10)
[2024-05-28] MEDS: COLACE PO ×2 (08:11→21:06)
[2024-05-28] MEDS: HYDROPHOR 1 APPLIC TOPICAL (08:14)
[2024-05-28] MEDS: DESENEX/MITRAZOL/ZEASORB 1 APPLIC TOPICAL ×2 (08:15→21:17)
[2024-05-28] MEDS: DAKIN'S SOLUTION 0.125% 1/4 STRENGTH 473 ML TOPICAL (08:15)
--- NOTE | 2024-05-28 09:39 | W.PN.NEPH.PH ---
Today's Communication / Plan
-
follow BMP
Assessment/Plan
-
IMP:
Possible sepsis with bilateral lower extremity cellulitis
Josephine-Baseline creatinine of 1. 16 March 2023
Hyperkalemia
Significant azotemia
Anion gap metabolic acidosis
Hyponatremia
new A. fib
Type 2 diabetes
Lymphedema
Hypertension
Hyperlipidemia
Asthma
Obesity
Hypoalbuminemia
heart murmur
Plan:
follow BMP
continue lasix 40mg po daily
dc planning
-
-
Date of Service: May 28, 2024
CC / HPI / ROS
-
Chief Complaint:
JOSEPHINE
History of Present Illness:
JOSEPHINE/Cr down to 1.4
Na 137
k normal
BP stable
completed Abx
Review of Systems:
no cp or sob at rest
no fever
Labs
-
Labs:
WBC 16.7 10^3/uL (4.8-10.8) H 05/28/24 04:26
RBC 3.37 10^6/uL (4.70-6.10) L 05/28/24 04:26
Hgb 9.3 g/dL (13.0-18.0) L 05/28/24 04:26
Hct 28.6 % (39.0-52.0) L 05/28/24 04:26
Plt Count 256 10^3/uL (130-400) 05/28/24 04:26
Sodium 137 mmol/L (135-145) 05/28/24 04:26
Potassium 4.3 mmol/L (3.5-5.1) 05/28/24 04:26
Chloride 104 mmol/L (98-107) 05/28/24 04:26
Carbon Dioxide 25 mmol/L (22-30) 05/28/24 04:26
BUN 88 mg/dl (9-20) H 05/28/24 04:26
Creatinine 1.4 mg/dL (0.7-1.3) H 05/28/24 04:26
eGFR 52.41 05/28/24 04:26
Glucose 151 mg/dl (70-99) H 05/28/24 04:26
Calcium 8.8 mg/dl (8.4-10.2) 05/28/24 04:26
Pvb-B-Oaeseitmdjq Pept 16370 pg/ml 05/20/24 09:07
Albumin 2.5 g/dl (3.5-5.0) L 05/21/24 10:19
Physical Exam
-
Vital Signs:
Vital Signs
Temp Pulse Resp BP Pulse Ox
98.4 F 100 18 130/76 96
05/28/24 07:32 05/28/24 07:32 05/28/24 07:32 05/28/24 07:32 05/28/24 07:32
Cardiovascular:: Regular rate and rhythm
Respiratory:: Bilateral: Coarse
Lung Excursion:: Normal
Abdomen:: Nontender and Soft
Bowel Sounds:: Normal
Extremity Edema:: None: Bilateral:
[2024-05-28 11:42] LABS: Glucose - Point of Care 146 mg/dl (70-99)
[2024-05-28 11:52] VITALS: BP 133/78
--- NOTE | 2024-05-28 13:53 | W.PN.ID1 ---
Date of Service
Date of Service: May 28, 2024
Today's Communication
- recommend biopsy particularly with chronic wounds, unknown pathogen
- miller greco and Kush in agreement at this time; miller states she will review with her colleagues 3 PM
- restarted cefepime 2 gm IV q12 - likely for a 6 week course
- has midline, will request blade changer to PICC
- ESR and CRP for baseline
- patient reporting improving back pain on cefepime only, note patient had a dose of vancomycin on 05/20
Assessment / Plan
# Discitis of the L2-L3 disc space without evidence of osteomyelitis
- inflammatory vs infectious
- recommend biopsy particularly with chronic wounds, unknown pathogen
- miller greco and Kush in agreement at this time; miller states she will review with her colleagues 05/28 PM
- restarted cefepime 2 gm IV q12 - likely for a 6 week course
- has midline, will request blade changer to PICC
- ESR and CRP for baseline
- patient reporting improving back pain on cefepime only, note patient had a dose of vancomycin on 05/20
# BLE lymphedema with exacerbation, improving
# BLE cellulitis with infected wounds, improving
# Leukocytosis improving
- pt was compliant with compression up until 1 month prior to admission
-blood cx neg to date.
- Ucx neg.
- wound swabs: polymicrobial organisms
- Continue wound care and compression. Patient counseled on necessity of ongoing compression following discharge.
- completed 7 day course of cefepime
# CLIFF - improved. Appears likely near baseline.
- Nephrology following
# Afib
-Cardiology following
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
Diabetes mellitus
Asthma
Dyslipidemia
Hypertension
Class III obesity BMI 42
Bilateral lower extremity lymphedema
Chief Complaint
-: Cellulitis and Other (Bilateral lower extremity lymphedema)
Subjective / Review of Systems
afebrile
bp stable
no events overnight
reporting some improvement in lumbar abdominal pain
Vital Signs / Physical Exam
Vital Signs
Vital Signs
Temp Pulse Resp BP Pulse Ox
98.2 F 92 18 133/78 95
05/28/24 11:52 05/28/24 11:52 05/28/24 11:52 05/28/24 11:52 05/28/24 11:52
Physical Exam
Constitutional: No Acute Distress
Cardiovascular: Regular Rate and S1/S2; Negative Murmur or Rub
Pulmonary: Clear and Symmetric; Negative Wheezes or Rales
Gastrointestinal: Soft, Non Tender, Non Distended and Normal Bowel Sounds
Skin: Warm and Dry; Negative Rash or Jaundice
Objective Data
Lab Data
Lab Results
05/28/24 04:26
05/28/24 04:26
APTT Cancelled 05/24/24 12:30
Estimated Creat Clear 61 ml/min 05/28/24 04:26
Lactic Acid Cancelled 05/20/24 13:00
Total Bilirubin 1.1 mg/dl (0.2-1.3) 05/21/24 10:19
AST 43 U/L (17-59) 05/21/24 10:19
ALT 21 U/L (0-50) 05/21/24 10:19
Alkaline Phosphatase 195 U/L (38-126) H 05/21/24 10:19
Most recent labs reviewed.
Micro Results:
05/22/24 11:37 Wound Culture - Final
Leg - Right Serratia marcescens
Alcaligenes Faecalis
Klebsiella oxytoca
Group G Streptococcus
Gram Stain - Final
05/22/24 11:37 Wound Culture - Final
Leg - Left Serratia marcescens
Alcaligenes Faecalis
Klebsiella oxytoca
Group G Streptococcus
Gram Stain - Final
05/20/24 09:27 Blood Culture - Final
Blood/Venous No Growth - Final Report
05/20/24 09:07 Blood Culture - Final
Blood/Venous No Growth - Final Report
05/20/24 10:26 Urine Culture - Final
Urine NO GROWTH
05/20/24 CXR Moderate cardiomegaly with likely trace bilateral pleural effusions.
--- NOTE | 2024-05-28 14:31 | W.PN.HOSP.TC ---
Today's Communication/Plan
-
Continue cefepime
Discharge planning
Assessment / Plan
Assessment / Plan
Seen earlier today. Late documentation. was at bedside
73 y/o with CLIFF on admission.
Cardiovascular system S1-S2 appreciated irregular
Chest decreased but clear to auscultation
Abdomen soft and nontender
Lower extremities were wrapped , edema with chronic venous changes. No discharge noted. Wounds on the posterior aspect stable
Echo 05/20/2024-vigorous LV systolic function and moderate concentric LVH. EF 65 to 70%. Mildly enlarged RV with low normal RV systolic function. Biatrial dilatation. Trace MR. Trace TR. Pulmonary artery pressure 41 mmHg. IVC is dilated and
does not collapse. Trivial pericardial effusion
05/20/24 CXR Moderate cardiomegaly with likely trace bilateral pleural effusions.
05/21/24: US Renal Only W/O Bladder: Subcentimeter nonobstructing bilateral renal calculi. No hydronephrosis.
05/21/24: US Periph Venous LOWER Ext Tez: No evidence of deep venous thrombosis bilaterally. Please note the bilateral peroneal and posterior tibial veins are not well visualized.
MRI L Spine- Increased STIR signal within the L2-3 disc space, which raises the possibility of discitis
# Sepsis
Likely source cellulitis
UTI ruled out
Completed 7 days of cefepime, ( Now restarted for discitis)
Blood cultures negative
Wound care
Venous Dopplers negative for DVT
Wound care and compression therapy with Justus bandages.
# Low back pain-MRI cannot rule out discitis. Patient and not sure if they would want a biopsy . Cefepime restarted yesterday. Patient states that his pain is Much better today. May need a PICC line and long-term antibiotics.
# Hypotension-treated as septic shock. Off pressors
# Acute kidney injury with metabolic acidosis and hyperkalemia
Hyperkalemia resolved
Possibly prerenal secondary to poor p.o. intake. Was also using ibuprofen 3 days prior to admission
3+ albumin noted. FENA low
Both And [place]ap metabolic acidosis-Resolved.
Abraham catheter placed in the ER-removed
Hold valsartan, NSAIDs, Hydrochlorothiazide, Potassium, Torsemide, Metformin
Lasix started
Intake output charting
proBNP 10,600
Nephrology following.
# Hyponatremia -getting better-type unclear. Volume assessment difficult but probably intravascularly volume depleted.
Possibly an element of prerenal and also SIADH given hypotension.
# New onset atrial fibrillation
Heparin drip changed to Eliquis
Rates are OK
Atenolol restarted.
Echo 325-vigorous LV systolic function with moderate concentric LVH. Left ventricular ejection fraction 65 to 70%. Mildly enlarged RV with low normal RV systolic function. Biatrial dilatation. Trace MR. Trace TR. Pulmonary artery pressure 41
mmHg. IVC is dilated and does not collapse. Trivial pericardial effusion
# Abnormal thyroid function test-repeat as outpatient in 6 weeks
# 6.1 X3.3X 4.3 cm solid lesion with internal vascularity in the proximal right thigh with differential including suspicious lymph node or soft tissue neoplasm- Outpatient work up. aware
# Diabetes-hemoglobin A1c 7.1 .Hold metformin. Accu-Cheks and sliding scale coverage
# Alcohol use disorder drinks 3 glass of Vodka every day. Continue thiamine replacement no signs of withdrawal
# Hypertension-hold valsartan, hydrochlorothiazide, amlodipine . Atenolol restarted.
# Hyperlipidemia-continue atorvastatin
# Stage II pressure injury coccygeal area with MASD. Present on admission
# Chronic lymphedema bilateral lower extremity
# Insomnia-melatonin started
# Obesity with a BMI of 41
# Hypoalbuminemia
# Chronic lymphedema bilateral lower extremities
# DVT prophylaxis- Eliquis
# Full code
D/W RN
Discussed with at bedside in detail
Discussed with nephrology
Discharge planning discussed with the at bedside. Awaiting case management to help
Anticipated Discharge: 24 - 48 hours
Subjective/Interval History
-
Date of Service: May 28, 2024
Objective Data
-
Labs:
Laboratory Results
05/28/24
04:26
WBC 16.7 H
Hgb 9.3 L
Hct 28.6 L
Plt Count 256
Sodium 137
Potassium 4.3
Chloride 104
Carbon Dioxide 25
BUN 88 H
Creatinine 1.4 H
Glucose 151 H
Calcium 8.8
Vital Signs:
Vital Signs
Temp Pulse Resp BP Pulse Ox
98.2 F 92 18 133/78 95
05/28/24 11:52 05/28/24 11:52 05/28/24 11:52 05/28/24 11:52 05/28/24 11:52
I&O
05/27/24 05/28/24 05/29/24
06:59 06:59 06:59
Intake Total 660 / 660 480 / 480
Output Total 925 / 925 1000 / 1000
Balance -265 / -265 -520 / -520
[2024-05-28 15:31] VITALS: BP 130/88
[2024-05-28] MEDS: FLUSH (NSS) 2 FLUSH IV (16:30)
[2024-05-28 17:14] LABS: Glucose - Point of Care 139 mg/dl (70-99)
[2024-05-28] MEDS: MELATONIN 5 MG PO (21:16)
[2024-05-28 21:18] LABS: Glucose - Point of Care 148 mg/dl (70-99)
[2024-05-28 23:15] VITALS: BP 148/82
[2024-05-29] MEDS: MAXIPIME 2000 MG IV ×2 (04:57→16:21)
[2024-05-29] MEDS: STERILE WATER FOR INJECTION 10 ML IV ×2 (04:58→16:22)
[2024-05-29 05:21] VITALS: BMI 42.7
[2024-05-29] MEDS: ROXICODONE 5 MG PO ×3 (06:45→21:03)
[2024-05-29 07:20] VITALS: BP 120/73
[2024-05-29 07:26] LABS: Glucose - Point of Care 135 mg/dl (70-99)
[2024-05-29] MEDS: NOVOLOG FLEXPEN-LOW RESISTANCE SC (08:19)
[2024-05-29] MEDS: LIPITOR 20 MG PO (09:01)
[2024-05-29] MEDS: MIRALAX PO (09:02)
[2024-05-29] MEDS: VITAMIN D3 (cholecalciferol) 25 MCG PO (09:02)
[2024-05-29] MEDS: SENOKOT PO (09:02)
[2024-05-29] MEDS: TENORMIN 25 MG PO (09:02)
[2024-05-29] MEDS: COLACE PO (09:02)
[2024-05-29] MEDS: DESENEX/MITRAZOL/ZEASORB 1 APPLIC TOPICAL ×2 (09:03→21:00)
[2024-05-29] MEDS: ELIQUIS 5 MG PO ×2 (09:03→20:59)
[2024-05-29] MEDS: DAKIN'S SOLUTION 0.125% 1/4 STRENGTH 1 ML TOPICAL (09:03)
[2024-05-29] MEDS: HYDROPHOR 1 APPLIC TOPICAL (09:03)
[2024-05-29] MEDS: LASIX 40 MG PO (09:04)
[2024-05-29] MEDS: LIDOCAINE 4% PATCH TOPICAL ×2 (09:05→09:10)
--- NOTE | 2024-05-29 09:47 | W.PN.UPDATE ---
Update Note
Progress Note Update
I saw and evaluated the patient. I reviewed the resident�s note and agree with findings and plan as documented in the resident�s note.
Gen: NAD, AAOx3.
Eyes: EOMI, PERRLA, no scleral icterus.
Neck: supple.
CV: RRR, +S1/S2, no m/r/g.
Resp: CTAB, no rales, wheezes, or rhonchi.
Abd: +BS, soft, NT, ND
Skin: intact
Neuro: CN 2-12 intact, non-focal.
Psych: Normal mood and affect.
05/22/24 11:37 Leg - Right Wound Culture - Final
Serratia marcescens
Alcaligenes Faecalis
Klebsiella oxytoca
Group G Streptococcus
05/22/24 11:37 Leg - Right Gram Stain - Final
05/22/24 11:37 Leg - Left Wound Culture - Final
Serratia marcescens
Alcaligenes Faecalis
Klebsiella oxytoca
Group G Streptococcus
05/22/24 11:37 Leg - Left Gram Stain - Final
05/20/24 09:27 Blood/Venous Blood Culture - Final
No Growth - Final Report
05/20/24 09:07 Blood/Venous Blood Culture - Final
No Growth - Final Report
05/20/24 10:26 Urine Urine Culture - Final
NO GROWTH
Echo 05/20/24: Vigorous LV systolic function and moderate concentric LVH. EF 65 to 70%. Mildly enlarged RV with low normal RV systolic function. Biatrial dilatation. Trace MR. Trace TR. Pulmonary artery pressure 41 mmHg. IVC is dilated and does
not collapse. Trivial pericardial effusion
CXR 05/20/24 : Moderate cardiomegaly with likely trace bilateral pleural effusions.
Renal U/S 05/21/24 : Subcentimeter nonobstructing bilateral renal calculi. No hydronephrosis.
B/L LE U/S 05/21/24: No DVT
MRI L Spine: Increased STIR signal within the L2-3 disc space, which raises the possibility of discitis
Septic shock:
-due to LE cellulitis and likely L2-3 discitis
-was on pressors, now off
-completed 7 days of cefepime, now restarted for likely discitis
-BCxs NG
-Pt has decided against disc Bx
-PICC placed for 6 weeks Cefepime
CLIFF:
-with acute AG metabolic acidosis and hyperkalemia (both resolved)
-Likely due to prerenal azotemia due to poor oral intake, Septic shock, NSAID use during the 3 days prior to admission, and home ARB/HCTZ/Torsemide
-renal following
-Cr has improved from 5.3 on admission, currently 1.4. Suspect this is pt's baseline (CKD3a)
New onset atrial fibrillation:
-was on heparin gtt, now on Eliquis
-echo above
-cont Atenolol
Other problems:
Hyponatremia, resolved
Elevated TSH (minimally elevated at 5.31), normal fT4, recheck TFTs in 6 weeks
Proximal R thigh mass: 6.1 x 3.3 x 4.3cm solid lesion with internal vascularity in the proximal right thigh with differential including suspicious lymph node or soft tissue neoplasm. Outpatient work up. aware.
DM2: a1c 7.1%. Holding Metformin. SSI/Accuchecks.
Alcohol use disorder drinks 3 glass of Vodka every day. Continue thiamine replacement no signs of withdrawal
Essential Hypertension: cont Atenolol
HLD: continue atorvastatin
Stage II pressure injury coccygeal area with MASD (POA)
Chronic B/L LE lymphedema
Insomnia: cont melatonin
Morbid obesity due to excess calories
Pt's updated at bedside.
FULL/Eliquis
[2024-05-29 10:15] LABS: Blood Urea Nitrogen 77 mg/dl (9-20); Calcium 8.6 mg/dl (8.4-10.2); Carbon Dioxide 24 mmol/L (22-30); Chloride 103 mmol/L (98-107); Estimated Creatinine Clearance 66 ml/min; Glucose 123 mg/dl (70-99); Sodium 136 mmol/L (135-145); eGFR 57.29
--- NOTE | 2024-05-29 10:28 | W.PN.HOSP.TC ---
Today's Communication/Plan
-
Continue IV antibiotics. Awaiting placement in rehab facility, discharge planning
Assessment / Plan
Assessment / Plan
Asssessment:
73 year old male with a past medical history of hypertension, hyperlipidemia, bilateral lower extremity lymphedema and type 2 diabetes without use of Insulin presented in the emergency department with concerns of not feeling well for last few weeks.
Patient was found to have have sepsis, CLIFF, new onset A-fib, and purulent discharge from bilateral lower extremity lymphedema. His sepsis was thought to have been caused by Bilateral LE cellulitis versus concurrent UTI. Patient's breathing has
improved and is currently on room air. Patient was hypotensive requiring Levophed before but now his blood pressure is stabilizing and he is off the Levophed. Patient's labs show marked improvement of his infection. Has improvement in his lower
extremity cellulitis as well. Patient will try pain medications for his back pain. Patient tried to get oxycodone which did help with his pain. Will order MRI of lower back when patient is able to tolerate laying flat. Patient underwent MRI over
the weekend which showed possible discitis. Patient was evaluated by infectious disease who installed the PICC line for long-term antibiotic treatment. Discharge planning being done as per facility availability.
Plan:
05/20/24 CXR Moderate cardiomegaly with likely trace bilateral pleural effusions.
05/21/24: US Renal Only W/O Bladder: Subcentimeter nonobstructing bilateral renal calculi. No hydronephrosis.
05/21/24: US Periph Venous LOWER Ext Tez: No evidence of deep venous thrombosis bilaterally. Please note the bilateral peroneal and posterior tibial veins are not well visualized.
05/27/24: MR Lumbar Without Contrast:
Increased STIR signal within the L2-3 disc space, which raises the possibility of discitis, although fluid signal intensity within the disc space can also be seen in association with changes of degenerative disc disease.
No adjacent endplate marrow signal intensity abnormality with no findings to suggest osteomyelitis. No evidence for paraspinal collection.
Levoconvex scoliosis. Diffuse changes of degenerative disc disease with multilevel central canal stenosis, lateral recess stenosis, and foraminal narrowing. See above narrative for detailed findings at each level.
ECHO (05/20/24): CONCLUSIONS
Vigorous left ventricular systolic function with moderate concentric left
ventricular hypertrophy
Left ventricular ejection fraction visually estimated 65-70%
Mildly in enlarged right ventricle with low normal RV systolic function
Biatrial dilatation
Trace-mild mitral regurgitation
Trileaflet sclerotic aortic valve without stenosis or regurgitation
Trace tricuspid regurgitation
Estimated pulmonary artery pressure of 41 mmHg assuming a right atrial pressure
of 15 mmHg. The IVC is dilated and does not collapse.
Prominent anterior fat pad present. Trivial pericardial effusion without
evidence of hemodynamic compromise.
No prior study available for comparison
# Sepsis -likely due to Bilateral LE cellulitis
-Blood culture- no growth
-urine culture showed no growth, UTI ruled out and most likely not the cause sepsis
-Continue with current wound care as cellulitis continues to improve
-Patient now off of Levophed as blood pressure has been better controlled
-ID following, input appreciated
-Wound culture grew gram-negative group G Streptococcus with sensitivities to penicillin. Also grew Serratia marcescens and Klebsiella oxytoca.
-Completed course of cefepime for 7 days, will continue IV cefepime for discitis for likely 6-week course. PICC line was installed
# CLIFF with Metabolic Acidosis and Hyperkalemia
-Potassium has normalized
-BP has been better off pressors
-Abraham in place, Renal US did not show any abnormality
-Nephro following, input appreciated
-Discontinued IV fluids
-Avoid nephrotoxins
-Hold home potassium chloride: Lokelma as needed
-Resolved, creatinine has normalized
#Coccyx stage 2 pressure injuries along with MASD
-developed these at homes as he sleeps in a recliner chair at home
-continue to be followed by wound care nurse
-follow up at wound care center upon discharge
-VN and Hospital bed with air mattress if home or air mattress if at rehab/SNF
-Continue wound care management while in the hospital
-Pain control as needed- will give Tramadol/Tylenol for pain, oxycodone as needed
-Tramadol causing patient to be groggy, may need to avoid
# New onset lower back pain
-Patient states this started around yesterday when he was trying to get the V/Q scan
-Patient unable to lie flat due to the pain
-As pain resolves may need to get further imaging including MRI
-Lidocaine patch did not help resolve the pain, patient has not tried anything further
-Counseled patient that he can ask for pain medications if needed
-Patient taking oxycodone as needed
-MRI lumbar without contrast results as per above
-Possible discitis found on MRI. Started on IV cefepime again. Biopsy was discussed but refused by patient and his
# New onset atrial fibrillation
-proBNP 82845
-Chest x-ray with cardiomegaly, bedside echo in the ER shows no pericardial effusion however massive cardiomegaly
-cardiology following, input appreciated
-Echo as above
-Rate control strategy, continues to remain in A-Fib for now, but rate has been better controlled
-Patient switched to oral anti-coagulation (5 mg Eliquis)
-Atenolol added for further rate control
# Lymphedema; bilateral LE
-Purulence much better on exam, area erythema has also improved
-Continued Wound care
-Venous Doppler bilateral lower extremity did not show any DVT
#Insomnia
-Melatonin helped the patient fall asleep
-Will continue with the melatonin at night for now
# Alcohol use disorder
-Drinks 3 vodka daily
-No serum alcohol detected
-MSAS protocol discontinued
-Magnesium in normal range
# Diabetes mellitus type 2
-7.1 A1c
-Insulin sliding scale
-Hold metformin
# Essential hypertension
-Hold valsartan/HCTZ, amlodipine
# Hyperlipidemia
-Continue atorvastatin
# Obesity with BMI of 41
# Hypoalbuminemia
CODE STATUS: Full code
DVT Prophylaxis: Eliquis
Anticipated Discharge: Within 24 hours
Subjective/Interval History
-
Date of Service: May 29, 2024
Patient states that he has been feeling better, he needed some pain medication to help go to sleep. Feeling much stronger than before and back pain is much less following antibiotics.
Objective Data
-
Labs:
Laboratory Results
05/29/24
09:03
Sodium 136
Potassium 4.0
Chloride 103
Carbon Dioxide 24
BUN 77 H
Creatinine 1.3
Glucose 123 H
Calcium 8.6
Vital Signs:
Vital Signs
Temp Pulse Resp BP Pulse Ox
98.5 F 88 16 120/73 95
05/29/24 07:20 05/29/24 09:02 05/29/24 07:20 05/29/24 09:02 05/29/24 07:20
I&O
05/28/24 05/29/24 05/30/24
06:59 06:59 06:59
Intake Total 480 / 480 900 / 900
Output Total 1000 / 1000 1400 / 1400
Balance -520 / -520 -500 / -500
Review of Systems
-
History Source: Patient
Constitutional: Reports Fatigue; Denies Fever
Respiratory: Denies Cough, Trouble Breathing or Wheezing
Cardiac: Denies Chest Pain, Palpitations or Syncope
Abdomen/GI: Denies Abdominal Pain, Nausea or Vomiting
Musculoskeletal: Reports Other (Lower back pain much less than before)
Physical Exam
-
General: Well Developed, Conversant and Obese
HEENT: Normocephalic, Atraumatic and Moist Mucous Membranes
Respiratory: Clear to Auscultation and Non Labored Respirations
Cardiac: S1/S2 and Irregular Rhythm (A-Fib)
GI: Soft and Nontender
Musculoskeletal: Edema, Right Lower Extrem, Edema, Left Lower Extrem and Other (Bilateral lower extremities covered with Justus bandages, skin changes not observed today)
Neuro: Awake, Alert and Oriented
Psych: Calm
Data Reviewed
-
Labs: Labs Reviewed by me, Discussed with Physician, Discussed with Nurse and Discussed with Patient
[2024-05-29 10:55] VITALS: BP 151/56; PULSE 96; O2SAT 95
[2024-05-29 11:00] VITALS: BP 151/56; PULSE 96; O2SAT 95
--- NOTE | 2024-05-29 11:45 | CM ---
Addendum entered by Marquita Andres 05/29/24 13:15:
[facility]
Report #: [phone]
Fax #: [phone]
Addendum entered by Marquita Andres 05/29/24 12:19:
IMM explained & signed. In chart
Original Note:
Spoke with Kerry at [facility]
can accept patient at [facility], bed available
[facility] NPI #: [id number], DR. Avery Childs NPI #: [id number]
spoke with hospitalist
will start auth process
PLAN: [facility], once auth obtained
[2024-05-29 12:22] LABS: Glucose - Point of Care 154 mg/dl (70-99)
--- NOTE | 2024-05-29 12:38 | CM ---
Addendum entered by Lexis Bundy 05/30/24 09:32:
Clinicals faxed to [phone].
Original Note:
initiated authorization with [facility] PPO p# [phone], spoke with Larry Jones
call reference # [id number]
Pended skilled rehab reference # [id number], clinical team will call with fax number for clinicals.
called back again to attempt to get fax #, was told the same and call reference # [id number].
--- NOTE | 2024-05-29 12:49 | W.PN.ID1 ---
Date of Service
Date of Service: May 29, 2024
Today's Communication
Continue cefepime.
Assessment / Plan
# Discitis of the L2-L3 disc space (without evidence of osteomyelitis)
- inflammatory vs infectious
- recommend biopsy particularly with chronic wounds, unknown pathogen
- Continue cefepime 2 gm IV q12 - for a 6 week course
- ESR and CRP for baseline
- patient reporting improving back pain on cefepime only.
# BLE lymphedema with exacerbation, improving
# BLE cellulitis with infected wounds, improving
# Leukocytosis improving
- pt was compliant with compression up until 1 month prior to admission
-blood cx neg to date.
- Ucx neg.
- wound swabs: polymicrobial organisms
- Continue wound care and compression. Patient counseled on necessity of ongoing compression following discharge.
- completed 7 day course of cefepime
# CLIFF - improved. Appears likely near baseline.
- Nephrology following
# Afib
-Cardiology following
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
Diabetes mellitus
Asthma
Dyslipidemia
Hypertension
Class III obesity BMI 42
Bilateral lower extremity lymphedema
Chief Complaint
-: Cellulitis and Other (Bilateral lower extremity lymphedema)
Subjective / Review of Systems
Review of Systems: No Fever and No Chills
Vital Signs / Physical Exam
Vital Signs
Vital Signs
Temp Pulse Resp BP Pulse Ox
98.5 F 88 16 120/73 95
05/29/24 07:20 05/29/24 09:02 05/29/24 07:20 05/29/24 09:02 05/29/24 07:20
Physical Exam
Constitutional: No Acute Distress, Comfortable and Non-toxic
Cardiovascular: Regular Rate and S1/S2
Pulmonary: Clear and Symmetric; Negative Wheezes or Rales
Gastrointestinal: Soft, Non Tender, Non Distended and Normal Bowel Sounds
Skin: Warm and Dry; Negative Rash or Jaundice
Neurological: Awake and Alert
Psychological: Calm
Objective Data
Lab Data
Lab Results
05/28/24 04:26
05/29/24 09:03
APTT Cancelled 05/24/24 12:30
Estimated Creat Clear 66 ml/min 05/29/24 09:03
Lactic Acid Cancelled 05/20/24 13:00
Total Bilirubin 1.1 mg/dl (0.2-1.3) 05/21/24 10:19
AST 43 U/L (17-59) 05/21/24 10:19
ALT 21 U/L (0-50) 05/21/24 10:19
Alkaline Phosphatase 195 U/L (38-126) H 05/21/24 10:19
Most recent labs reviewed.
Micro Results:
05/22/24 11:37 Wound Culture - Final
Leg - Right Serratia marcescens
Alcaligenes Faecalis
Klebsiella oxytoca
Group G Streptococcus
Gram Stain - Final
05/22/24 11:37 Wound Culture - Final
Leg - Left Serratia marcescens
Alcaligenes Faecalis
Klebsiella oxytoca
Group G Streptococcus
Gram Stain - Final
05/20/24 09:27 Blood Culture - Final
Blood/Venous No Growth - Final Report
05/20/24 09:07 Blood Culture - Final
Blood/Venous No Growth - Final Report
05/20/24 10:26 Urine Culture - Final
Urine NO GROWTH
Imaging:
05/27/2024 MRI lumbar spine: Increased STIR signal within the L2-3 disc space, which raises the possibility of discitis, although fluid signal intensity within the disc space can also be seen in association with changes of degenerative disc disease.
05/20/24 CXR Moderate cardiomegaly with likely trace bilateral pleural effusions.
--- NOTE | 2024-05-29 13:03 | W.PN.NEPH.PH ---
Today's Communication / Plan
-
bnp stable
Assessment/Plan
-
IMP:
Possible sepsis with bilateral lower extremity cellulitis
Josephine-Baseline creatinine of 1. 16 March 2023
Hyperkalemia
Significant azotemia
Anion gap metabolic acidosis
Hyponatremia
new A. fib
Type 2 diabetes
Lymphedema
Hypertension
Hyperlipidemia
Asthma
Obesity
Hypoalbuminemia
heart murmur
Plan:
follow BMP
continue lasix 40mg po daily
dc planning
-
-
Date of Service: May 29, 2024
CC / HPI / ROS
-
Chief Complaint:
JOSEPHINE
History of Present Illness:
JOSEPHINE/Cr down to 1.4
Na 137
k normal
BP stable
completed Abx
Review of Systems:
no cp or sob at rest
no fever
Labs
-
Labs:
WBC 16.7 10^3/uL (4.8-10.8) H 05/28/24 04:26
RBC 3.37 10^6/uL (4.70-6.10) L 05/28/24 04:26
Hgb 9.3 g/dL (13.0-18.0) L 05/28/24 04:26
Hct 28.6 % (39.0-52.0) L 05/28/24 04:26
Plt Count 256 10^3/uL (130-400) 05/28/24 04:26
Sodium 136 mmol/L (135-145) 05/29/24 09:03
Potassium 4.0 mmol/L (3.5-5.1) 05/29/24 09:03
Chloride 103 mmol/L (98-107) 05/29/24 09:03
Carbon Dioxide 24 mmol/L (22-30) 05/29/24 09:03
BUN 77 mg/dl (9-20) H 05/29/24 09:03
Creatinine 1.3 mg/dL (0.7-1.3) 05/29/24 09:03
eGFR 57.29 05/29/24 09:03
Glucose 123 mg/dl (70-99) H 05/29/24 09:03
Calcium 8.6 mg/dl (8.4-10.2) 05/29/24 09:03
Lbv-A-Ghhjpcxsezs Pept 24768 pg/ml 05/20/24 09:07
Albumin 2.5 g/dl (3.5-5.0) L 05/21/24 10:19
Physical Exam
-
Vital Signs:
Vital Signs
Temp Pulse Resp BP Pulse Ox
98.5 F 88 16 120/73 95
05/29/24 07:20 05/29/24 09:02 05/29/24 07:20 05/29/24 09:02 05/29/24 07:20
Cardiovascular:: Regular rate and rhythm
Respiratory:: Bilateral: Coarse
Lung Excursion:: Normal
Abdomen:: Nontender and Soft
Bowel Sounds:: Normal
Extremity Edema:: None: Bilateral:
[2024-05-29] MEDS: NOVOLOG FLEXPEN-LOW RESISTANCE 1 UNITS SC ×2 (13:16→19:20)
[2024-05-29 15:25] VITALS: BP 113/66
--- NOTE | 2024-05-29 15:40 | WOUNDNOTE ---
R FOOT (ANTERIOR MEDIAL)
--- NOTE | 2024-05-29 15:43 | WOUNDNOTE ---
WO RN note: L anterior ankle small purple area looks improved, appearance dry scabbed abrasion. Silicone border foam applied for protection. R proximal medial anterior foot small light purple area looks the same. Silicone border foam applied for
protection. Patient stated he is tolerating the TruVue lite heel relief boots. Heels off bed with pillows and a bariatric air chair cushion. Spoke with KEO Gee who will be changing LE dressings and applying Justus wraps. Dr. Salguero had updated the
Justus wrap order which includes adding ABD pad to anterior ankle under Justus wraps. Spoke with SILVIA Rogers re: recommend an air mattress at [facility] d/t coccyx skin breakdown.
[2024-05-29 17:25] LABS: Glucose - Point of Care 162 mg/dl (70-99)
[2024-05-29] MEDS: SENOKOT 17.2 MG PO (20:59)
[2024-05-29] MEDS: COLACE 100 MG PO (21:00)
[2024-05-29] MEDS: MELATONIN 5 MG PO (21:00)
[2024-05-29 21:30] LABS: Glucose - Point of Care 165 mg/dl (70-99)
[2024-05-29 23:39] VITALS: BP 162/98
[2024-05-30] MEDS: ROXICODONE 5 MG PO ×2 (01:08→15:40)
[2024-05-30 04:00] VITALS: BP 137/83
[2024-05-30] MEDS: MAXIPIME 2000 MG IV ×2 (04:07→15:38)
[2024-05-30] MEDS: STERILE WATER FOR INJECTION 10 ML IV ×2 (04:07→15:40)
[2024-05-30 04:20] VITALS: BP 137/83
[2024-05-30 04:57] LABS: Hematocrit 26.2 % (39.0-52.0); Hemoglobin 8.5 g/dL (13.0-18.0); Mean Corp Hgb Conc. 32.4 g/dL (33.0-37.0); Mean Corpuscular Hgb 27.3 pg (27.0-31.0); Mean Corpuscular Volume 84.2 fL (80.0-94.0); Platelet Count 227 10^3/uL (130-400); Red Blood Cell Count 3.11 10^6/uL (4.70-6.10); White Blood Cell Count 12.5 10^3/uL (4.8-10.8)
[2024-05-30 05:08] VITALS: BMI 42.5
[2024-05-30 05:27] LABS: Blood Urea Nitrogen 71 mg/dl (9-20); Calcium 8.5 mg/dl (8.4-10.2); Carbon Dioxide 26 mmol/L (22-30); Chloride 104 mmol/L (98-107); Estimated Creatinine Clearance 66 ml/min; Glucose 126 mg/dl (70-99); Potassium 4.1 mmol/L (3.5-5.1); Sodium 134 mmol/L (135-145); eGFR 57.29
--- NOTE | 2024-05-30 06:23 | W.PN.HOSP.TC ---
Today's Communication/Plan
-
Awaiting discharge to [facility] facility
Assessment / Plan
Assessment / Plan
Asssessment:
73 year old male with a past medical history of hypertension, hyperlipidemia, bilateral lower extremity lymphedema and type 2 diabetes without use of Insulin presented in the emergency department with concerns of not feeling well for last few weeks.
Patient was found to have have sepsis, CLIFF, new onset A-fib, and purulent discharge from bilateral lower extremity lymphedema. His sepsis was thought to have been caused by Bilateral LE cellulitis versus concurrent UTI. Patient's breathing has
improved and is currently on room air. Patient was hypotensive requiring Levophed before but now his blood pressure is stabilizing and he is off the Levophed. Patient's labs show marked improvement of his infection. Has improvement in his lower
extremity cellulitis as well. Patient will try pain medications for his back pain. Patient tried to get oxycodone which did help with his pain. Will order MRI of lower back when patient is able to tolerate laying flat. Patient underwent MRI over
the weekend which showed possible discitis. Patient was evaluated by infectious disease who installed the PICC line for long-term antibiotic treatment. Discharge planning being done as per facility availability. Awaiting on facility placement
today.
Plan:
05/20/24 CXR Moderate cardiomegaly with likely trace bilateral pleural effusions.
05/21/24: US Renal Only W/O Bladder: Subcentimeter nonobstructing bilateral renal calculi. No hydronephrosis.
05/21/24: US Periph Venous LOWER Ext Tez: No evidence of deep venous thrombosis bilaterally. Please note the bilateral peroneal and posterior tibial veins are not well visualized.
05/27/24: MR Lumbar Without Contrast:
Increased STIR signal within the L2-3 disc space, which raises the possibility of discitis, although fluid signal intensity within the disc space can also be seen in association with changes of degenerative disc disease.
No adjacent endplate marrow signal intensity abnormality with no findings to suggest osteomyelitis. No evidence for paraspinal collection.
Levoconvex scoliosis. Diffuse changes of degenerative disc disease with multilevel central canal stenosis, lateral recess stenosis, and foraminal narrowing. See above narrative for detailed findings at each level.
ECHO (05/20/24): CONCLUSIONS
Vigorous left ventricular systolic function with moderate concentric left
ventricular hypertrophy
Left ventricular ejection fraction visually estimated 65-70%
Mildly in enlarged right ventricle with low normal RV systolic function
Biatrial dilatation
Trace-mild mitral regurgitation
Trileaflet sclerotic aortic valve without stenosis or regurgitation
Trace tricuspid regurgitation
Estimated pulmonary artery pressure of 41 mmHg assuming a right atrial pressure
of 15 mmHg. The IVC is dilated and does not collapse.
Prominent anterior fat pad present. Trivial pericardial effusion without
evidence of hemodynamic compromise.
No prior study available for comparison
# Sepsis -likely due to Bilateral LE cellulitis
-Blood culture- no growth
-urine culture showed no growth, UTI ruled out and most likely not the cause sepsis
-Continue with current wound care as cellulitis continues to improve
-Patient now off of Levophed as blood pressure has been better controlled
-ID following, input appreciated
-Wound culture grew gram-negative group G Streptococcus with sensitivities to penicillin. Also grew Serratia marcescens and Klebsiella oxytoca.
-Completed course of cefepime for 7 days, will continue IV cefepime for discitis for likely 6-week course. PICC line was installed
# CLIFF with Metabolic Acidosis and Hyperkalemia
-Potassium has normalized
-BP has been better off pressors
-Abraham in place, Renal US did not show any abnormality
-Nephro following, input appreciated
-Discontinued IV fluids
-Avoid nephrotoxins
-Hold home potassium chloride: Lokelma as needed
-Resolved, creatinine has normalized (1.4- probable baseline)
-Hyponatremia today, most likely dilutional
-Will continue Lasix 40 Mg p.o. daily as per nephrology
#Coccyx stage 2 pressure injuries along with MASD
-developed these at homes as he sleeps in a recliner chair at home
-continue to be followed by wound care nurse
-follow up at wound care center upon discharge
-VN and Hospital bed with air mattress if home or air mattress if at rehab/SNF
-Continue wound care management while in the hospital
-Pain control as needed- will give Tramadol/Tylenol for pain, oxycodone as needed
-Tramadol causing patient to be groggy, may need to avoid
# New onset lower back pain
-Patient states this started around yesterday when he was trying to get the V/Q scan
-Patient unable to lie flat due to the pain
-As pain resolves may need to get further imaging including MRI
-Lidocaine patch did not help resolve the pain, patient has not tried anything further
-Counseled patient that he can ask for pain medications if needed
-Patient taking oxycodone as needed
-MRI lumbar without contrast results as per above
-Possible discitis found on MRI. Started on IV cefepime again. Biopsy was discussed but refused by patient and his
# New onset atrial fibrillation
-proBNP 03167
-Chest x-ray with cardiomegaly, bedside echo in the ER shows no pericardial effusion however massive cardiomegaly
-cardiology following, input appreciated
-Echo as above
-Rate control strategy, continues to remain in A-Fib for now, but rate has been better controlled
-Patient switched to oral anti-coagulation (5 mg Eliquis)
-Atenolol added for further rate control
# Lymphedema; bilateral LE
-Purulence much better on exam, area erythema has also improved
-Continued Wound care
-Venous Doppler bilateral lower extremity did not show any DVT
#Insomnia
-Melatonin helped the patient fall asleep
-Will continue with the melatonin at night for now
# Alcohol use disorder
-Drinks 3 vodka daily
-No serum alcohol detected
-MSAS protocol discontinued
-Magnesium in normal range
# Diabetes mellitus type 2
-7.1 A1c
-Insulin sliding scale
-Hold metformin
# Essential hypertension
-Hold valsartan/HCTZ, amlodipine
# Hyperlipidemia
-Continue atorvastatin
# Obesity with BMI of 41
# Hypoalbuminemia
CODE STATUS: Full code
DVT Prophylaxis: Eliquis
Anticipated Discharge: Within 24 hours
Subjective/Interval History
-
Date of Service: May 30, 2024
Patient has been feeling well, reports no changes from yesterday. Awaiting placement to SNF
Objective Data
-
Labs:
Laboratory Results
05/30/24
04:22
WBC 12.5 H
Hgb 8.5 L
Hct 26.2 L
Plt Count 227
Sodium 134 L
Potassium 4.1
Chloride 104
Carbon Dioxide 26
BUN 71 H
Creatinine 1.3
Glucose 126 H
Calcium 8.5
Vital Signs:
Vital Signs
Temp Pulse Resp BP Pulse Ox
97.7 F 86 16 137/83 94
05/29/24 23:39 05/29/24 23:39 05/29/24 23:39 05/30/24 04:00 05/30/24 03:53
I&O
05/28/24 05/29/24 05/30/24
06:59 06:59 06:59
Intake Total 480 / 480 900 / 900 960 / 960
Output Total 1000 / 1000 1400 / 1400 770 / 770
Balance -520 / -520 -500 / -500 190 / 190
Review of Systems
-
History Source: Patient
Constitutional: Reports Fatigue; Denies Fever
Respiratory: Denies Cough, Trouble Breathing or Wheezing
Cardiac: Denies Chest Pain, Palpitations or Syncope
Abdomen/GI: Denies Abdominal Pain, Nausea or Vomiting
Musculoskeletal: Reports Other (Lower back pain much less than before)
Physical Exam
-
General: Well Developed, Conversant and Obese
HEENT: Normocephalic and Atraumatic
Respiratory: Clear to Auscultation and Non Labored Respirations
Cardiac: S1/S2 and Irregular Rhythm (A-Fib)
GI: Soft and Nontender
Musculoskeletal: Edema, Right Lower Extrem, Edema, Left Lower Extrem and Other (Bilateral lower extremities covered with Justus bandages, skin changes not observed today)
Neuro: Awake, Alert and Oriented
Psych: Calm
Data Reviewed
-
Labs: Labs Reviewed by me, Discussed with Physician and Discussed with Patient
[2024-05-30 07:30] VITALS: BP 116/71
[2024-05-30 07:35] LABS: Glucose - Point of Care 128 mg/dl (70-99)
[2024-05-30 07:38] LABS: Erythrocyte Sed Rate 95 mm/hour (0-20)
[2024-05-30] MEDS: NOVOLOG FLEXPEN-LOW RESISTANCE SC ×2 (07:39→13:32)
[2024-05-30] MEDS: TENORMIN 25 MG PO (09:03)
[2024-05-30] MEDS: LIPITOR 20 MG PO (09:03)
[2024-05-30] MEDS: VITAMIN D3 (cholecalciferol) 25 MCG PO (09:03)
[2024-05-30] MEDS: ELIQUIS 5 MG PO (09:03)
[2024-05-30] MEDS: LIDOCAINE 4% PATCH TOPICAL (09:04)
[2024-05-30] MEDS: DESENEX/MITRAZOL/ZEASORB 1 APPLIC TOPICAL (09:04)
[2024-05-30] MEDS: DAKIN'S SOLUTION 0.125% 1/4 STRENGTH 1 ML TOPICAL (09:04)
[2024-05-30] MEDS: HYDROPHOR 1 APPLIC TOPICAL (09:04)
[2024-05-30] MEDS: LASIX 40 MG PO (09:04)
[2024-05-30] MEDS: SENOKOT PO (09:24)
[2024-05-30] MEDS: COLACE PO (09:24)
[2024-05-30] MEDS: MIRALAX PO (09:24)
--- NOTE | 2024-05-30 10:14 | W.PN.UPDATE ---
Addendum entered and electronically signed by Albert Bazzi MD 05/30/24 15:11:
Total time spent on d/c = 34 min. This included today's physical exam, progress note, review of laboratory and diagnostic data, preparation of discharge documents and prescriptions, and discussions about the pt's hospital course and discharge plan
with the patient and other medical biller coder involved in the patient's care.
Original Note:
Update Note
Progress Note Update
I saw and evaluated the patient. I reviewed the resident�s note and agree with findings and plan as documented in the resident�s note.
No new complaints.
Gen: NAD, Awake and alert
Eyes: EOMI, PERRLA, no scleral icterus.
Neck: supple.
CV: RRR, +S1/S2, no m/r/g.
Resp: CTAB, no rales, wheezes, or rhonchi.
Abd: +BS, soft, NT, ND
Skin: b/L LE AUGUSTUS wraps, B/L LE 3+ lymphedema
Neuro: CN 2-12 intact, non-focal.
Psych: Normal mood and affect.
05/22/24 11:37 Leg - Right Wound Culture - Final
Serratia marcescens
Alcaligenes Faecalis
Klebsiella oxytoca
Group G Streptococcus
05/22/24 11:37 Leg - Right Gram Stain - Final
05/22/24 11:37 Leg - Left Wound Culture - Final
Serratia marcescens
Alcaligenes Faecalis
Klebsiella oxytoca
Group G Streptococcus
05/22/24 11:37 Leg - Left Gram Stain - Final
05/20/24 09:27 Blood/Venous Blood Culture - Final
No Growth - Final Report
05/20/24 09:07 Blood/Venous Blood Culture - Final
No Growth - Final Report
05/20/24 10:26 Urine Urine Culture - Final
NO GROWTH
Echo 05/20/24: Vigorous LV systolic function and moderate concentric LVH. EF 65 to 70%. Mildly enlarged RV with low normal RV systolic function. Biatrial dilatation. Trace MR. Trace TR. Pulmonary artery pressure 41 mmHg. IVC is dilated and does
not collapse. Trivial pericardial effusion
CXR 05/20/24 : Moderate cardiomegaly with likely trace bilateral pleural effusions.
Renal U/S 05/21/24 : Subcentimeter nonobstructing bilateral renal calculi. No hydronephrosis.
B/L LE U/S 05/21/24: No DVT
MRI L Spine: Increased STIR signal within the L2-3 disc space, which raises the possibility of discitis
Septic shock:
-due to LE cellulitis and likely L2-3 discitis
-was on pressors, now off
-completed 7 days of cefepime, now Cefepime restarted for likely discitis
-BCxs NG
-Pt has decided against disc Bx
-PICC placed for 6 weeks Cefepime
CLIFF:
-with acute AG metabolic acidosis and hyperkalemia (both resolved)
-Likely due to prerenal azotemia due to poor oral intake, Septic shock, NSAID use during the 3 days prior to admission, and home ARB/HCTZ/Torsemide
-renal following
-Cr has improved from 5.3 on admission, currently 1.3. Suspect this is pt's baseline (CKD3a)
New onset atrial fibrillation:
-was on heparin gtt, now on Eliquis
-echo above
-cont Atenolol
Other problems:
Hyponatremia, resolved
Elevated TSH (minimally elevated at 5.31), normal fT4, recheck TFTs in 6 weeks
Proximal R thigh mass: 6.1 x 3.3 x 4.3cm solid lesion with internal vascularity in the proximal right thigh with differential including suspicious lymph node or soft tissue neoplasm. Outpatient work up. aware.
DM2: a1c 7.1%. Holding Metformin. SSI/Accuchecks.
Alcohol use disorder drinks 3 glass of Vodka every day. Continue thiamine replacement no signs of withdrawal
Essential Hypertension: cont Atenolol
HLD: continue atorvastatin
Stage II pressure injury coccygeal area with MASD (POA)
Chronic B/L LE lymphedema
Insomnia: cont melatonin
Morbid obesity due to excess calories
FULL/Eliquis
Medically cleared for d/c. Case management aware.
--- NOTE | 2024-05-30 11:16 | W.PN.NEPH.PH ---
Today's Communication / Plan
-
Continue Lasix
Assessment/Plan
-
IMP:
Possible sepsis with bilateral lower extremity cellulitis
Josephine-Baseline creatinine of 1. 16 March 2023
Hyperkalemia
Significant azotemia
Anion gap metabolic acidosis
Hyponatremia
new A. fib
Type 2 diabetes
Lymphedema
Hypertension
Hyperlipidemia
Asthma
Obesity
Hypoalbuminemia
heart murmur
Plan:
follow BMP
continue lasix 40mg po daily
Creatinine remains stable at 1.3/BUN continues to improve at 71
dc planning pending/okay for discharge from renal standpoint
-
-
Date of Service: May 30, 2024
CC / HPI / ROS
-
Chief Complaint:
JOSEPHINE
History of Present Illness:
JOSEPHINE/Cr down to 1.4
Na 137
k normal
BP stable
completed Abx
Review of Systems:
no cp or sob at rest
no fever
Labs
-
Labs:
WBC 12.5 10^3/uL (4.8-10.8) H 05/30/24 04:22
RBC 3.11 10^6/uL (4.70-6.10) L 05/30/24 04:22
Hgb 8.5 g/dL (13.0-18.0) L 05/30/24 04:22
Hct 26.2 % (39.0-52.0) L 05/30/24 04:22
Plt Count 227 10^3/uL (130-400) 05/30/24 04:22
Sodium 134 mmol/L (135-145) L 05/30/24 04:22
Potassium 4.1 mmol/L (3.5-5.1) 05/30/24 04:22
Chloride 104 mmol/L (98-107) 05/30/24 04:22
Carbon Dioxide 26 mmol/L (22-30) 05/30/24 04:22
BUN 71 mg/dl (9-20) H 05/30/24 04:22
Creatinine 1.3 mg/dL (0.7-1.3) 05/30/24 04:22
eGFR 57.29 05/30/24 04:22
Glucose 126 mg/dl (70-99) H 05/30/24 04:22
Calcium 8.5 mg/dl (8.4-10.2) 05/30/24 04:22
Gom-B-Jtnkpjnjpwh Pept 05111 pg/ml 05/20/24 09:07
Albumin 2.5 g/dl (3.5-5.0) L 05/21/24 10:19
Physical Exam
-
Vital Signs:
Vital Signs
Temp Pulse Resp BP Pulse Ox
98.6 F 91 18 116/71 94
05/30/24 07:30 05/30/24 09:03 05/30/24 07:30 05/30/24 09:03 05/30/24 07:37
Cardiovascular:: Regular rate and rhythm
Respiratory:: Bilateral: CTA
Lung Excursion:: Normal
Abdomen:: Nontender and Soft
Bowel Sounds:: Normal
Extremity Edema:: None: Bilateral:
--- NOTE | 2024-05-30 11:34 | CM ---
Patient seen at bedside.
updated Marlena & patient still await insurance authorization
Clinicals faxed to [phone]
Pended skilled rehab reference # [id number]
spoke with hospitalist
PLAN: [facility], pending insurance approval
[facility]
Report #: [phone]
Fax #: [phone]
--- NOTE | 2024-05-30 14:03 | W.PN.ID1 ---
Date of Service
Date of Service: May 30, 2024
Today's Communication
Continue cefepime.
Assessment / Plan
# Discitis of the L2-L3 disc space (without evidence of osteomyelitis)
- inflammatory vs infectious
- recommend biopsy particularly with chronic wounds, unknown pathogen
--> Continue cefepime 2 gm IV q12 - for a 6 week course. Script given to CM
- ESR and CRP for baseline
- patient reporting improving back pain on cefepime.
# BLE lymphedema with exacerbation, improving
# BLE cellulitis with infected wounds, improving
# Leukocytosis improving
- pt was compliant with compression up until 1 month prior to admission
-blood cx neg to date.
- Ucx neg.
- wound swabs: polymicrobial organisms
--> Continue wound care and compression. Patient counseled on necessity of ongoing compression following discharge.
# CLIFF - improved. Appears likely near baseline.
- Nephrology following
# Afib
-Cardiology following
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
Diabetes mellitus
Asthma
Dyslipidemia
Hypertension
Class III obesity BMI 42
Bilateral lower extremity lymphedema
Chief Complaint
-: Cellulitis and Other (Bilateral lower extremity lymphedema. Discitis)
Subjective / Review of Systems
Review of Systems: No Fever and No Chills
Vital Signs / Physical Exam
Vital Signs
Vital Signs
Temp Pulse Resp BP Pulse Ox
98.6 F 91 18 116/71 94
05/30/24 07:30 05/30/24 09:03 05/30/24 07:30 05/30/24 09:03 05/30/24 07:37
Physical Exam
Constitutional: No Acute Distress, Comfortable and Non-toxic
Pulmonary: Non Labored
Gastrointestinal: Soft, Non Distended and Normal Bowel Sounds
Extremities: Edema (BLE lymphdedema decreasing)
Musculoskeletal: Other (lumbar spinal tenderness adjacent to the midline)
Skin: Warm and Dry; Negative Rash or Jaundice
Wound: Other (Bilateral lower extremity wounds dressed. Small amount of serous drainage/strikethrough on bandage)
Neurological: Awake and Alert
Psychological: Calm
Objective Data
Lab Data
Lab Results
05/30/24 04:22
05/30/24 04:22
ESR 95 mm/hour (0-20) H 05/30/24 04:22
APTT Cancelled 05/24/24 12:30
Estimated Creat Clear 66 ml/min 05/30/24 04:22
Lactic Acid Cancelled 05/20/24 13:00
Total Bilirubin 1.1 mg/dl (0.2-1.3) 05/21/24 10:19
AST 43 U/L (17-59) 05/21/24 10:19
ALT 21 U/L (0-50) 05/21/24 10:19
Alkaline Phosphatase 195 U/L (38-126) H 05/21/24 10:19
C-Reactive Protein 22.40 mg/L (0.0-10.00) H 05/30/24 04:22
Most recent labs reviewed.
Micro Results:
05/22/24 11:37 Wound Culture - Final
Leg - Right Serratia marcescens
Alcaligenes Faecalis
Klebsiella oxytoca
Group G Streptococcus
Gram Stain - Final
05/22/24 11:37 Wound Culture - Final
Leg - Left Serratia marcescens
Alcaligenes Faecalis
Klebsiella oxytoca
Group G Streptococcus
Gram Stain - Final
05/20/24 09:27 Blood Culture - Final
Blood/Venous No Growth - Final Report
05/20/24 09:07 Blood Culture - Final
Blood/Venous No Growth - Final Report
05/20/24 10:26 Urine Culture - Final
Urine NO GROWTH
Imaging:
05/27/2024 MRI lumbar spine: Increased STIR signal within the L2-3 disc space, which raises the possibility of discitis, although fluid signal intensity within the disc space can also be seen in association with changes of degenerative disc disease.
05/20/24 CXR Moderate cardiomegaly with likely trace bilateral pleural effusions.
[2024-05-30 14:05] LABS: Glucose - Point of Care 130 mg/dl (70-99)
--- NOTE | 2024-05-30 14:19 | CM ---
SELENA Saavedra from [facility] PPO
Approved skilled rehab
Auth # [id number]
Start date 05/30/24, LCD/NRD 06/05/24
Updates to p# [phone], fax# [phone]
[2024-05-30 15:05] VITALS: BP 126/77
--- NOTE | 2024-05-30 15:21 | W.DCSUMMARY ---
Discharge Summary
Discharge Data
Date of Admission: 05/20/24
Date of Discharge: 05/30/24
-
Pending Results: No
Hospital Course
Discharging Physician : Dr. Asha Valadez, Dr. Albert Bazzi
�
Disposition�:�SNF
�
Primary�care�physician�: Lisha Gold MD
�
Principal�Discharge�Diagnosis�:�Septic shock most likely due to lower extremity cellulitis/L2-3 discitis
�
Chronic�Discharge�Diagnosis:
New onset atrial fibrillation
Elevated TSH
Proximal right thigh mass
DM2
Alcohol use disorder
Essential hypertension
Hyperlipidemia
Stage II pressure injury coccygeal area with MASD (POA)
Chronic bilateral lower extremity lymphedema
Insomnia
Morbid obesity due to excess calories
�
Hospital�Course�:��
73 year old male with a past medical history of hypertension, hyperlipidemia, bilateral lower extremity lymphedema and type 2 diabetes without use of Insulin presented to the [facility] emergency department on 05/20/2024 with concerns of
not feeling well for the last few weeks. Patient had been living alone and was unable to walk due to severe lower extremity lymphedema. Patient was found to be in acute renal failure with metabolic acidosis and hyperkalemia in the ED. He was
started on IV fluid resuscitation and IV sodium bicarbonate for correction of his acidosis with gap. His hypertension medications were held at this time.. He was also found to have a blowing systolic murmur and severe leukocytosis along with
severe cardiomegaly. Echocardiogram was ordered for the patient as well which showed vigorous left ventricular systolic function with moderate concentric left ventricular hypertrophy. Patient was found to have new onset atrial fibrillation and
heparin drip was started in the ER. Patient's atenolol that he was on from home was stopped due to his renal failure. Blood and urine as well as wound cultures were taken and the patient was started on broad-spectrum IV antibiotics. Patient was
admitted to the hospitalist service and nephrology was consulted. Ict Sales Assistant believed his CLIFF was suspected to be prerenal in nature in the setting of sepsis along with dehydration, continued alcohol use, and hypertension. Most likely source of
sepsis was found to be due to cellulitis from his bilateral lower extremities. He had bilateral lower extremity swelling with weeping small wounds and skin discoloration. Wound care was consulted for the ulceration that was seen. Patient
continued to be on cefepime while awaiting cultures. Venous Doppler was negative for DVT. Patient's kidney function continued to improve. Patient continued to be on heparin drip for A-fib. His diabetes was under control with Accu-Cheks and
sliding scale coverage. Continued wound care and compression therapy was done with Justus bandages for bilateral lower extremities. Blood cultures were negative. V/Q scan was ordered for ruling out any PE but patient was unable to tolerate the
procedure due to lower back pain. Once patient's kidney functions got back to normal, patient was started on atenolol again. He was eventually switched from heparin to Eliquis for his A-fib. For his lower back pain, patient underwent an MRI after
few days once he could tolerate laying flat on his back. At this time patient had completed his course of cefepime. His wound cultures grew polymicrobial species including Serratia marcescens, Alcaligenes faecalis, Klebsiella oxytoca, and Group G
Streptococcus. His urine culture did not grow anything nor did his blood culture. He was found to have possible discitis in the L2-L3 disc space. Due to this, patient was restarted on IV cefepime. Patient continued to feel better and stronger
after resumption of antibiotics. His back pain also improved with further antibiotic therapy. As patient became stronger, patient was discharged to longterm facility for further rehabilitation. Patient is to continue IV antibiotics for a
6-week course as discussed with ID. Patient also aware of the proximal right thigh mass that will be worked up in the outpatient setting.
�
Important�imaging�findings�:�
05/20/24 CXR Moderate cardiomegaly with likely trace bilateral pleural effusions.
05/21/24: US Renal Only W/O Bladder: Subcentimeter nonobstructing bilateral renal calculi. No hydronephrosis.
05/21/24: US Periph Venous LOWER Ext Tez: No evidence of deep venous thrombosis bilaterally. Please note the bilateral peroneal and posterior tibial veins are not well visualized.
05/27/24: MR Lumbar Without Contrast:
Increased STIR signal within the L2-3 disc space, which raises the possibility of discitis, although fluid signal intensity within the disc space can also be seen in association with changes of degenerative disc disease.
No adjacent endplate marrow signal intensity abnormality with no findings to suggest osteomyelitis. No evidence for paraspinal collection.
Levoconvex scoliosis. Diffuse changes of degenerative disc disease with multilevel central canal stenosis, lateral recess stenosis, and foraminal narrowing.
�
�
Procedure�findings�:�
ECHO (05/20/24): CONCLUSIONS
Vigorous left ventricular systolic function with moderate concentric left
ventricular hypertrophy
Left ventricular ejection fraction visually estimated 65-70%
Mildly in enlarged right ventricle with low normal RV systolic function
Biatrial dilatation
Trace-mild mitral regurgitation
Trileaflet sclerotic aortic valve without stenosis or regurgitation
Trace tricuspid regurgitation
Estimated pulmonary artery pressure of 41 mmHg assuming a right atrial pressure
of 15 mmHg. The IVC is dilated and does not collapse.
Prominent anterior fat pad present. Trivial pericardial effusion without
evidence of hemodynamic compromise.
No prior study available for comparison
�
Discharge Plan
-
Patient Disposition: Usp/SNF
Discharge Diagnosis/Procedures: Septic shock due to bilateral lower extremity cellulitis and likely L2-3 discitis
CLIFF
New onset atrial fibrillation
Hyponatremia
Elevated TSH
Type 2 diabetes
Hypertension
Alcohol use disorder
Hyperlipidemia
Stage II pressure injury coccygeal area with MASD (POA)
Chronic bilateral lower extremity lymphedema
Insomnia
Morbid obesity due to excess calories
Condition: Fair
Diet: 2 Gram Sodium and Diabetic, Carb Controlled
Activity: With assistance and As tolerated
Driving Restrictions: No driving
Bathing Restrictions: None
Blood Work: thyroid function tests in 6 weeks
Others Tests: CT with contrast or MRI with contrast to evaluate 6.1 X3.3X 4.3 cm solid lesion with internal vascularity in the proximal right thigh with differential including suspicious lymph node or soft tissue neoplasm
Follow-up with PCP
Specialty Instructions: Weigh Daily- Call MD for wt gain/loss 3 lbs overnight/5 lbs in 1 week
Activity Restrictions/Additional Instructions:
Wound Care Instructions
Wash legs with soap and water.
Soak wounds with 1/4 strength Dakin's solution. Aquaphor ointment to dry skin Le's. Apply Santyl ointment prn necrotic tissue. Apply adaptic to wounds, then silver alginate, abdominal pads, and shelly.Repeat once a day.
L anterior ankle and R medial anterior foot small purple ecchymotic area-clean with saline, silicone border foam, change every 2 days and prn loosened dressing.
Bilateral knee high Justus wraps as tolerated, pad anterior ankles with abd pad under Justus wraps; re-wrap daily and as needed for skin checks/wound care.
Elevate heels off bed with pillows with bariatric air chair cushion on top. Soft heel relief boots (i.e. TruVue Lite boots) as tolerated.
Bariatric air chair cushion.
Air mattress.
Follow up with wound care center call for an appointment.
Work up of anemia as outpatient. See PCP and GI doctor
Referrals:
Екатерина Rivera PA-C [Specified Professional Personl] - 06/16/24 1:20 pm (You have a cardiology follow-up appointment at the [facility]. Please call with questions)
Lisha Gold MD [Family Provider] - in less than 1 week
Additional Discharge Medication Instructions: Follow-up with cardiology on 06/16/24
Follow-up with PCP within 1 week
Follow-up with PCP and GI for anemia workup
Follow-up with wound care center, call for an appointment
Prescriptions:
New
miconazole nitrate [Miconazorb AF] 2 % Powder
1 applic topical BID Qty: 85 0RF
Dakin's Solution 0.125 % Solution
1 applic topical DAILY Qty: 473 0RF
Eliquis 5 mg Tablet
5 mg PO BID 30 Days Qty: 60 0RF
furosemide 40 mg Tablet
40 mg PO DAILY 30 Days Qty: 30 0RF
lidocaine 4 % Adhesive Patch,Medicated
1 patch topical DAILY 30 Days Qty: 30 0RF
white petrolatum [Hydrophor] 42 % Ointment
1 applic topical DAILY Qty: 100 0RF
acetaminophen 325 mg Tablet
650 mg PO Q4HPRN PRN (Reason: Pain) Qty: 30 0RF
cefepime 2 gram Recon Soln
2,000 mg IV Q12H Qty: 10 0RF
atenolol 25 mg Tablet
25 mg PO DAILY 30 Days Qty: 30 0RF
cholecalciferol (vitamin D3) 25 mcg (1,000 unit) Tablet
25 mcg PO DAILY Qty: 30 0RF
Continued
atorvastatin [Lipitor] 20 mg Tablet
20 mg PO QPM
metformin 1,000 mg Tablet
1,000 mg PO BID
Patient Comments:
patient says that he only takes one each evening, never takes morning dose
albuterol sulfate 2.5 mg /3 mL (0.083 %) Solution For Nebulization
2.5 mg INHALATION R Q6HPRN PRN (Reason: sob)
therapeutic multivitamin Tablet
1 tab PO DAILY
alprazolam 0.5 mg Tablet
0.5 mg PO HSPRN PRN (Reason: anxiety)
Dulera 200-5 mcg/actuation Hfa Aerosol Inhaler
2 puff INHALATION BID
cyanocobalamin (vitamin B-12) 500 mcg Tablet,Disintegrating
500 mcg SUBLINGUAL DAILY
albuterol sulfate 90 mcg/actuation Hfa Aerosol Inhaler
2 puff INHALATION R Q4HPRN PRN (Reason: sob)
Held
amlodipine 10 mg Tablet
10 mg PO QPM
Hold Instructions: Hold until seen by cardiology
aspirin 81 mg Tablet,Delayed Release (Dr/Ec)
81 mg PO HS
Hold Instructions: Hold until seen by cardiology
valsartan-hydrochlorothiazide 320-25 mg Tablet
1 tab PO QPM
Hold Instructions: Until seen by cardiology
Discontinued
atenolol 50 mg Tablet
50 mg PO QPM
ibuprofen 200 mg Tablet
400 mg PO DAILYPRN PRN (Reason: mild pain)
potassium chloride 10 mEq Packet
10 meq PO DAILY
Discharge Orders:
Discharge Patient (As Directed); Ordered 05/30/24
Ordered By: Albert Bazzi
Discharge Date and Time
Print Language: MACEDONIAN
--- NOTE | 2024-05-30 16:12 | PTCARENOTE ---
This RN [facility], no answer. Call back for 2N if they would like, Acute Care to be picking up pt at 1630.
== END 2024-05-30 17:29 | DRG 871 ==
LOC: 2 NORTH 13:05
PROVIDERS: Internal Medicine Infectious Disease; Nuclear Medicine Nuclear Cardiology; Physician Assistant; Specialist; Student in an Organized Health Care Education/Training Program; ADMITTING PHYSICIAN Hospitalist; ATTENDING PHYSICIAN Internal Medicine; CONSULT PHYSICIAN Internal Medicine; CONSULT PHYSICIAN Internal Medicine Cardiovascular Disease; CONSULT PHYSICIAN Internal Medicine Infectious Disease; EMERGENCY PHYSICIAN Emergency Medicine; FAMILY PHYSICIAN Family Medicine
DX: A41.9 Sepsis, unspecified organism (principal); R65.21 Severe sepsis with septic shock; L03.115 Cellulitis of right lower limb; I13.0 Hypertensive heart and chronic kidney disease with heart failure and stage 1 through stage 4 chronic kidney disease, or unspecified chronic kidney disease; Z68.41 Body mass index [BMI] 40.0-44.9, adult; E87.20 Acidosis, unspecified; N17.9 Acute kidney failure, unspecified; E87.1 Hypo-osmolality and hyponatremia; L03.116 Cellulitis of left lower limb; I45.2 Bifascicular block; M46.46 Discitis, unspecified, lumbar region; I48.91 Unspecified atrial fibrillation; F10.10 Alcohol abuse, uncomplicated; I50.9 Heart failure, unspecified; N18.31 Chronic kidney disease, stage 3a; E11.22 Type 2 diabetes mellitus with diabetic chronic kidney disease; I89.0 Lymphedema, not elsewhere classified; L89.152 Pressure ulcer of sacral region, stage 2; G47.00 Insomnia, unspecified; E66.01 Morbid (severe) obesity due to excess calories; E78.00 Pure hypercholesterolemia, unspecified; E88.09 Other disorders of plasma-protein metabolism, not elsewhere classified; M41.9 Scoliosis, unspecified; E87.5 Hyperkalemia; R62.7 Adult failure to thrive; J45.909 Unspecified asthma, uncomplicated; Z87.891 Personal history of nicotine dependence; Z79.899 Other long term (current) drug therapy; Z79.84 Long term (current) use of oral hypoglycemic drugs; F41.9 Anxiety disorder, unspecified; M72.2 Plantar fascial fibromatosis; I08.0 Rheumatic disorders of both mitral and aortic valves; I87.8 Other specified disorders of veins
CPT/HCPCS: 51702; 71045; 72148; 76775; 80048; 80053; 80202; 81003; 81015; 82010; 82077; 82306; 82570; 82607; 82805; 82962; 83036; 83605; 83735; 83880; 84156; 84300; 84436; 84439; 84443; 84484; 85025; 85027; 85652; 85730; 86140; 87040; 87070; 87077; 87086; 87147; 87186; 87205; 93005; 93306; 93970; 96361; 96365; 96366; 96367; 96375; 97163; 97167; 97530; 97535; 99291; 99292; J7030

== ENCOUNTER → 2024-06-02 09:59 | Outpatient (REF) | payer OTHER, MEDICARE, SELFPAY ==
[2024-06-02 10:45] LABS: % Basophils 0.8 % (0-2); % Eosinophils 3.5 % (0-6); % Immature Granulocytes 0.4 % (0-0.5); % Monocytes 12.9 % (1.7-9.3); % Neutrophils 74.4 % (42.2-75.2); Absolute Basophils 0.1 10^3/uL (0-0.2); Absolute Eosinophils 0.3 10^3/uL (0-0.7); Absolute Lymphocytes 0.8 10^3/uL (1.2-3.4); Absolute Monocytes 1.3 10^3/uL (0.1-0.6); Absolute Neutrophils 7.3 10^3/uL (1.4-6.5); Hematocrit 26.2 % (39.0-52.0); Hemoglobin 8.3 g/dL (13.0-18.0); Mean Corp Hgb Conc. 31.7 g/dL (33.0-37.0); Mean Corpuscular Hgb 26.9 pg (27.0-31.0); Mean Corpuscular Volume 85.1 fL (80.0-94.0); Mean Platelet Volume 11.1 fL (7.4-10.4); Nucleated Red Blood Cells % 0 % (-); Platelet Count 271 10^3/uL (130-400); Red Blood Cell Count 3.08 10^6/uL (4.70-6.10); Red Cell Dist. Width 16.8 % (11.5-14.5); White Blood Cell Count 9.8 10^3/uL (4.8-10.8)
[2024-06-02 12:15] LABS: Blood Urea Nitrogen 70 mg/dl (9-20); Calcium 8.2 mg/dl (8.4-10.2); Carbon Dioxide 20 mmol/L (22-30); Chloride 102 mmol/L (98-107); Glucose 97 mg/dl (70-99); Potassium 3.9 mmol/L (3.5-5.1); Sodium 134 mmol/L (135-145); eGFR 44.65
== END ==
LOC: OLABP 09:59
PROVIDERS: ATTENDING PHYSICIAN Family Medicine
DX: I89.0 Lymphedema, not elsewhere classified (principal); M46.46 Discitis, unspecified, lumbar region; A41.9 Sepsis, unspecified organism; L03.116 Cellulitis of left lower limb; L03.115 Cellulitis of right lower limb; N17.9 Acute kidney failure, unspecified; E87.5 Hyperkalemia; E87.20 Acidosis, unspecified; R62.7 Adult failure to thrive; I10 Essential (primary) hypertension; E78.5 Hyperlipidemia, unspecified; E11.9 Type 2 diabetes mellitus without complications; I48.91 Unspecified atrial fibrillation; E87.1 Hypo-osmolality and hyponatremia; E88.09 Other disorders of plasma-protein metabolism, not elsewhere classified; Z68.41 Body mass index [BMI] 40.0-44.9, adult; E66.01 Morbid (severe) obesity due to excess calories
CPT/HCPCS: 36415; 80048; 85025

== ENCOUNTER 2024-06-09 12:52 | Inpatient (IN) | payer OTHER, MEDICARE, SELFPAY ==
[2024-06-09] VITALS (32 sets, daily range): BP systolic 84–117; BP diastolic 42–86; BMI 44.3
--- NOTE | 2024-06-09 10:21 | ED.GENMED ---
History of Present Illness
<Richard Phillip PA-C - Last Filed: 06/09/24 13:04>
General
Chief Complaint: Change in Mental Status
Source: patient, records and ambulance crew
Time Seen by Provider: 06/09/24 10:07
History of Present Illness
History of Present Illness:
74-year-old male recently admitted at this facility for an extended stay, discharged on May 30 with a diagnosis of septic shock secondary to bilateral lower extremity cellulitis and L2-3 discitis, new onset atrial fibrillation, type 2 diabetes,
alcohol use disorder, hyperlipidemia, chronic lymphedema and morbid obesity presenting back to the emergency department today from [facility] for evaluation of reported altered mental status and reportedly having hematemesis
sometime between last night and early this morning. Patient unable to provide any history at this current time. Patient does answer some questions appropriately but otherwise appears quite confused. Based off of record review patient was
discharged from this facility to [facility] where he was continued on a 6-week course of antibiotics through a right upper extremity PICC line. He had a stage II pressure ulcer within the coccyx region that grew polymicrobial species.
Past History
<Richard Phillip PA-C - Last Filed: 06/09/24 13:04>
Past History
ED Past Medical History: Arrthythmia, HTN, Hypercholesterolemia, IDDM, Renal failure, Hypothyroidism and Other (Chronic lymphedema)
ED Past Surgical History: None
Social History
Tobacco: Non-smoker
Alcohol: Chronic alcoholic
Drug: None
Living: residential
Review of Systems
<Richard Phillip PA-C - Last Filed: 06/09/24 13:04>
Review of Systems
All Other Systems: ROS reviewed and negative except as documented in HPI and ROS
Phy Exam
<Richard Phillip PA-C - Last Filed: 06/09/24 13:04>
Physical Exam
Physical Exam:
GENERAL: Alert , in no apparent distress will answer some questions however seems confused, having a hard time answering questions but does follow commands
HEAD: Normocephalic atraumatic
EYE: Clear conjunctiva
NECK: Supple
ENT: o/p clr, mmm.
CARDIAC: Rate controlled, irregularly irregular
LUNGS: Clear breath sounds bilaterally, no acute respiratory distress, no wheezes/rales/rhonchi
ABDOMEN: Soft, without focal tenderness, no r/g, no cvat
NEUROLOGICAL: Alert and oriented to place and self but not time
SKIN: Warm and dry, significant bilateral edema, Slight erythema that appears chronic into the bilateral thighs
MUSCULOSKELETAL: Chronic lymphedema with hypertrophic skin changes bilaterally, there is dried vomitus on bilateral Justus bandages
PSYCH: Difficult to assess but patient does appear somewhat confused even though he answers some questions appropriately
Scores
<Richard Phillip PA-C - Last Filed: 06/09/24 13:04>
Heart Failure Risk
Heart Failure Risk Score: Not Applicable
Heart Score for Chest Pain Patients
STEMI patient?: Not applicable
Withdrawal Assessment of Alcohol
Withdrawal Assessment Completed?: Not applicable
Course
<Richard Phillip PA-C - Last Filed: 06/09/24 13:04>
Orders/Labs/Results
Orders:
Orders
06/09/24 10:16
CT Head W/o Iv Contrast Urgent
Comment:
Reason For Exam: AMS, vomiting
Bedside Glucose- Treatment ONCE
0.9% Sodium Chloride 1000 ml [Nss] 1,000 ml IV BOLUS
06/09/24 10:17
Electrocardiogram (*1) Urgent
Reason for Study: Fatigue / Weakness
EKG- Treatment ONCE
06/09/24 10:18
CR Chest Portable - 1 View Urgent
Comment:
Reason For Exam: PICC line eval
Reason Study Needs to be Portable: Patient Unstable
06/09/24 10:48
Type+Screen Urgent
Ammonia Urgent
Complete Blood Count/With Diff Urgent
Comprehensive Metabolic Panel Urgent
Lactic Acid Q4H
Comment: CANCEL 2nd LACTIC ACID IF 1st LACTIC ACID IS LESS THAN 2
NT-proBNP Urgent
PTT Urgent
Prothrombin Time Urgent
Venous Blood Gas Urgent
%Oxygen/Room Air: RA
Blood Culture Q30M
BUNNY Source: Blood/Venous
Specimen Description:
06/09/24 11:10
Urinalysis Reflex To Culture Urgent
Date Specimen was Collected: 06/09/24
Time Specimen was Collected: 11:01
Urine Microscopic Reflex Cult Urgent
Blood Culture Q30M
BUNNY Source: Blood/Venous
Specimen Description:
Urine Culture Urgent
BUNNY Source: U
Specimen Description:
Date Specimen was Collected: 06/09/24
Time Specimen was Collected: 11:01
06/09/24 11:11
Blood Bank Products [* Blood Bank Products] Urgent
Blood Bank Products: *Packed RBC Leuko(PRBC's)
Quantity: 2
Transfuse Today: Yes
Reason: Bleeding
CefTRIAXone [Rocephin] 1,000 mg IV NOW STA
Octreotide [Sandostatin] 50 mcg IV NOW STA
Pantoprazole 80 mg/100 ml Nss [Protonix] 80 mg in 100 ml IV NOW
Pantoprazole [Protonix IV] 80 mg IV NOW STA
06/09/24 11:12
IV Insert/Care/Rem.- Treatment PRN
06/09/24 11:19
ABO2 Routine
BBK Wristband Number:
Associate notified that ABO2 has been ordered: Y
Date: 06/09/24
Time: 11:01
Curator Of Photography And Prints ID: [id number]
06/09/24 11:35
Prothrombin Complex(Pcc),Human [Kcentra] 2,529 unit Empty Viaflex Container 100 ml [Viaflex Empty Container] 100 ml IV NOW
Does patient have a dx of serious acute active bleeding?: Yes
Does patient have prior history of HIT?: No
06/09/24 12:34
Admit/Transfer Patient As Directed
Co-Sign Provider:
Level of Care: Inpatient admission
Assign to:: ICU
Physician / Group: Hospitalist
Diagnosis: GI bleeding
Reason for Hospitalization: .
Expected length of stay greater than two midnights?: Yes
ELOS- Estimated Length of Stay in days: 3
I certify the patient meets the requirements for IP care: Yes
PRN Pain Medication Management As Directed
May give lesser potent ordered pain med per pt: Yes
preference::
Protocol:: Medication orders for pain may be administered in a
manner that supports deferring to patient preference
when the pt is:
- Requesting an ordered lesser potent pain medication.
Least to most potent pain medications are defined
as: acetaminophen < NSAID < tramadol < opioids
(morphine, oxycodone, hydromorphone).
- Requesting a lesser dose of the same medication IF
ORDERED.
- Requesting a less intrusive route of administration
if both routes are prescribed by the provider (PO <
IV).
06/09/24 12:35
Code Status As Directed
Resuscitation Status: Full Code
06/09/24 12:40
Desmopressin [Ddavp] 40 mcg 0.9% Sodium Chloride 50 ml [Nss] 50 ml IV NOW
06/09/24 12:41
Consult Gastroenterology [GASTROINTESTINAL CONSULT] Stat
Consulting Provider: Get Zee
Was physician already notified: Yes
Reason for consult: GI bleeding
Consult Electronic Assembly [Electronic Assembly Consult] Stat
Consulting Provider: Keven Berrios
Was physician already notified: Yes
Reason for consult: GI bleeding
06/09/24 12:45
Sterile Water For Inj [Sterile Water For Injection 1000 ml] 1,000 ml Sodium Bicarbonate 150 meq IV 75 mls/hr
06/09/24 12:48
Troponin I Stat
06/09/24 14:30
Lactic Acid Q4H
Comment: CANCEL 2nd LACTIC ACID IF 1st LACTIC ACID IS LESS THAN 2
Abnormal Lab Results
06/09/24 06/09/24
10:48 11:10
RBC 2.07 L 10^6/uL
(4.70-6.10)
Hgb 5.6 L* g/dL
(13.0-18.0)
Hct 17.9 L* %
(39.0-52.0)
MCHC 31.3 L g/dL
(33.0-37.0)
RDW 17.4 H %
(11.5-14.5)
Absolute Lymphs (auto) 0.6 L 10^3/uL
(1.2-3.4)
Absolute Monos (auto) 0.9 H 10^3/uL
(0.1-0.6)
Lymphocytes % 10.3 L %
(20.5-51.1)
Monocytes % 14.6 H %
(1.7-9.3)
PT 26.5 H Sec
(11.4-14.6)
APTT 39.0 H Sec
(23.4-35.0)
VBG pH 7.13 L*
(7.32-7.43)
VBG pO2 56 H mmHg
(30-50)
VBG HCO3 11.6 L mmol/L
(22-27)
Sodium 133 L mmol/L
(135-145)
Potassium 5.4 H mmol/L
(3.5-5.1)
Carbon Dioxide 12 L* mmol/L
(22-30)
BUN 161 H* mg/dl
(9-20)
Creatinine 5.2 H* mg/dL
(0.7-1.3)
Glucose 100 H mg/dl
(70-99)
Lactic Acid 2.7 H mmol/L
(0.7-2.0)
Total Protein 5.8 L g/dl
(6.3-8.2)
Albumin 2.8 L g/dl
(3.5-5.0)
Ur Occult Blood Reflex 2+ A
(Negative)
Leukocyte Esterase Rfl 1+ A
(Negative)
Urine RBC 3-6 A /HPF
(0-2)
Urine Albumin (Reflex) 3+ A
(Neg - Trace)
Crossmatch IS Only See Detail
06/09/24 10:48
06/09/24 10:48
Vital Signs
Initial and Last Documented VS:
Initial Vital Signs
Temp Pulse Resp Pulse Ox
97.8 F 88 16 95
06/09/24 10:10 06/09/24 10:10 06/09/24 10:10 06/09/24 10:10
Last Documented Vital Signs
Temp Pulse Resp BP Pulse Ox
97.4 F 93 20 90/56 99
06/09/24 12:57 06/09/24 12:57 06/09/24 12:57 06/09/24 12:57 06/09/24 12:57
Director Cardiac consulted with Physician
Director Cardiac consulted with physician?: Yes
Name of Physician Consulted: Paul
<Joaquin Miller MD - Last Filed: 06/09/24 13:13>
Orders/Labs/Results
Orders:
Orders
06/09/24 10:16
CT Head W/o Iv Contrast Urgent
Comment:
Reason For Exam: AMS, vomiting
Bedside Glucose- Treatment ONCE
0.9% Sodium Chloride 1000 ml [Nss] 1,000 ml IV BOLUS
06/09/24 10:17
Electrocardiogram (*1) Urgent
Reason for Study: Fatigue / Weakness
EKG- Treatment ONCE
06/09/24 10:18
CR Chest Portable - 1 View Urgent
Comment:
Reason For Exam: PICC line eval
Reason Study Needs to be Portable: Patient Unstable
06/09/24 10:48
Type+Screen Urgent
Ammonia Urgent
Complete Blood Count/With Diff Urgent
Comprehensive Metabolic Panel Urgent
Lactic Acid Q4H
Comment: CANCEL 2nd LACTIC ACID IF 1st LACTIC ACID IS LESS THAN 2
NT-proBNP Urgent
PTT Urgent
Prothrombin Time Urgent
Venous Blood Gas Urgent
%Oxygen/Room Air: RA
Blood Culture Q30M
BUNNY Source: Blood/Venous
Specimen Description:
06/09/24 11:10
Urinalysis Reflex To Culture Urgent
Date Specimen was Collected: 06/09/24
Time Specimen was Collected: 11:01
Urine Microscopic Reflex Cult Urgent
Blood Culture Q30M
BUNNY Source: Blood/Venous
Specimen Description:
Urine Culture Urgent
BUNNY Source: U
Specimen Description:
Date Specimen was Collected: 06/09/24
Time Specimen was Collected: 11:01
06/09/24 11:11
Blood Bank Products [* Blood Bank Products] Urgent
Blood Bank Products: *Packed RBC Leuko(PRBC's)
Quantity: 2
Transfuse Today: Yes
Reason: Bleeding
CefTRIAXone [Rocephin] 1,000 mg IV NOW STA
Octreotide [Sandostatin] 50 mcg IV NOW STA
Pantoprazole 80 mg/100 ml Nss [Protonix] 80 mg in 100 ml IV NOW
Pantoprazole [Protonix IV] 80 mg IV NOW STA
06/09/24 11:12
IV Insert/Care/Rem.- Treatment PRN
06/09/24 11:19
ABO2 Routine
BBK Wristband Number:
Associate notified that ABO2 has been ordered: Y
Date: 06/09/24
Time: 11:01
Curator Of Photography And Prints ID: [id number]
06/09/24 11:35
Prothrombin Complex(Pcc),Human [Kcentra] 2,529 unit Empty Viaflex Container 100 ml [Viaflex Empty Container] 100 ml IV NOW
Does patient have a dx of serious acute active bleeding?: Yes
Does patient have prior history of HIT?: No
06/09/24 12:34
Admit/Transfer Patient As Directed
Co-Sign Provider:
Level of Care: Inpatient admission
Assign to:: ICU
Physician / Group: Hospitalist
Diagnosis: GI bleeding
Reason for Hospitalization: .
Expected length of stay greater than two midnights?: Yes
ELOS- Estimated Length of Stay in days: 3
I certify the patient meets the requirements for IP care: Yes
PRN Pain Medication Management As Directed
May give lesser potent ordered pain med per pt: Yes
preference::
Protocol:: Medication orders for pain may be administered in a
manner that supports deferring to patient preference
when the pt is:
- Requesting an ordered lesser potent pain medication.
Least to most potent pain medications are defined
as: acetaminophen < NSAID < tramadol < opioids
(morphine, oxycodone, hydromorphone).
- Requesting a lesser dose of the same medication IF
ORDERED.
- Requesting a less intrusive route of administration
if both routes are prescribed by the provider (PO <
IV).
06/09/24 12:35
Code Status As Directed
Resuscitation Status: Full Code
06/09/24 12:40
Desmopressin [Ddavp] 40 mcg 0.9% Sodium Chloride 50 ml [Nss] 50 ml IV NOW
06/09/24 12:41
Consult Gastroenterology [GASTROINTESTINAL CONSULT] Stat
Consulting Provider: Get Zee
Was physician already notified: Yes
Reason for consult: GI bleeding
Consult Electronic Assembly [Electronic Assembly Consult] Stat
Consulting Provider: Keven Berrios
Was physician already notified: Yes
Reason for consult: GI bleeding
06/09/24 12:45
Sterile Water For Inj [Sterile Water For Injection 1000 ml] 1,000 ml Sodium Bicarbonate 150 meq IV 75 mls/hr
06/09/24 12:48
Troponin I Stat
06/09/24 14:30
Lactic Acid Q4H
Comment: CANCEL 2nd LACTIC ACID IF 1st LACTIC ACID IS LESS THAN 2
Abnormal Lab Results
06/09/24 06/09/24
10:48 11:10
RBC 2.07 L 10^6/uL
(4.70-6.10)
Hgb 5.6 L* g/dL
(13.0-18.0)
Hct 17.9 L* %
(39.0-52.0)
MCHC 31.3 L g/dL
(33.0-37.0)
RDW 17.4 H %
(11.5-14.5)
Absolute Lymphs (auto) 0.6 L 10^3/uL
(1.2-3.4)
Absolute Monos (auto) 0.9 H 10^3/uL
(0.1-0.6)
Lymphocytes % 10.3 L %
(20.5-51.1)
Monocytes % 14.6 H %
(1.7-9.3)
PT 26.5 H Sec
(11.4-14.6)
APTT 39.0 H Sec
(23.4-35.0)
VBG pH 7.13 L*
(7.32-7.43)
VBG pO2 56 H mmHg
(30-50)
VBG HCO3 11.6 L mmol/L
(22-27)
Sodium 133 L mmol/L
(135-145)
Potassium 5.4 H mmol/L
(3.5-5.1)
Carbon Dioxide 12 L* mmol/L
(22-30)
BUN 161 H* mg/dl
(9-20)
Creatinine 5.2 H* mg/dL
(0.7-1.3)
Glucose 100 H mg/dl
(70-99)
Lactic Acid 2.7 H mmol/L
(0.7-2.0)
Total Protein 5.8 L g/dl
(6.3-8.2)
Albumin 2.8 L g/dl
(3.5-5.0)
Ur Occult Blood Reflex 2+ A
(Negative)
Leukocyte Esterase Rfl 1+ A
(Negative)
Urine RBC 3-6 A /HPF
(0-2)
Urine Albumin (Reflex) 3+ A
(Neg - Trace)
Crossmatch IS Only See Detail
06/09/24 10:48
06/09/24 10:48
Vital Signs
Initial and Last Documented VS:
Initial Vital Signs
Temp Pulse Resp Pulse Ox
97.8 F 88 16 95
06/09/24 10:10 06/09/24 10:10 06/09/24 10:10 06/09/24 10:10
Last Documented Vital Signs
Temp Pulse Resp BP Pulse Ox
97.4 F 93 20 90/56 99
06/09/24 12:57 06/09/24 12:57 06/09/24 12:57 06/09/24 12:57 06/09/24 12:57
<Richard Phillip PA-C - Last Filed: 06/09/24 13:04>
MDM/Problems Addressed
Differential Diagnosis Includes:
Diabetic complication, CVA, metabolic encephalopathy, sepsis/bacteremia, acute on chronic kidney disease, electrolyte derangement
MDM/Problems Addressed:
74-year-old male, recently discharged from this facility about 10 days ago presents back to the emergency department due to change in mental status and reported hematemesis at some point last night into early this morning. Patient does have dried
vomitus on his lower extremities, does appear confused. Appears hypotensive but no tachycardia or fever. Could be volume depletion secondary to current volume restriction. Patient with new onset A-fib and newly started on anticoagulants, question
upper GI bleed versus acute neurologic. Patient has known infectious sources including lower extremity cellulitis and lumbar discitis, question bacteremia from this. He does have a PICC line to the right upper extremity for which she is currently
receiving antibiotics at the [facility]. Labs, CT imaging, chest x-ray, urine ordered. Fluids ordered. Anticipate readmission.
Chronic conditions affecting care: DM and Arrhythmia
<Richard Phillip PA-C - Last Filed: 06/09/24 13:04>
*Pulse Oximetry
Patient hypoxic: no
*Tiler Interpretation
Rate: normal
Rhythm: a-fib
*Critical Care Note
Total Time (30-74mins, 75-104mins- exclusive of procedures): 60
comment:
Critical care statement: A total of 60 minutes of critical care time was provided for this patient. This includes management of unstable vital signs, evaluation of the patient at bedside, reviewing the patient's pertinent medical records, discussion
with consultants, review of old EKGs and review of pertinent medical records. This time with separate from time utilized to perform the aforementioned documented procedures
Data Reviewed
Review of Other/Old Records Reveals: Labs, Records and Discharge Summary
Source: patient and records
<Richard Phillip PA-C - Last Filed: 06/09/24 13:04>
Patient Management
Discussion with other providers: Hospitalist and Surveillance Director
Escalation/DeEscalation of care consider admission/obs:
11:25 AM: Patient's labs show a significant anemia with hemoglobin downtrending from over 12 on this admission on May 20 to 5.6 today. Patient also has significant renal dysfunction with a new creatinine of greater than 5, bicarb of 12, pH of
7.13. Due to patient's significant anemia and renal dysfunction combined with history of newly being anticoagulated decision was made to initiate patient on Kcentra to reverse his Eliquis and blood products ordered. Sodium bicarb drip ordered to
reverse his profound acidosis which I suspect is the main cause of his altered mental status. Patient does not have a EGD on record here and given his history of alcohol abuse it is unknown if he has a history of varices so patient was initiated on
octreotide and Rocephin. I notified the ICU team, GI, nephrology and hospitalist team. Hospitalist team to admit.
ED Attending Note
<Richard Phillip PA-C - Last Filed: 06/09/24 13:04>
-
Portions of this chart may have been created with voice recognition software.� Occasional wrong word or��sound alike� substitutions may have occurred due to the inherent limitations of voice recognition software.
<Joaquin Miller MD - Last Filed: 06/09/24 13:13>
ED Attending Note
Patient seen and examined by attending physician: Yes
I performed the substantive portion of visit, reviewed & personally made and approve the management plan that is documented in note by myself or ISMAEL.: Yes
ED Attending Note:
74-year-old male sent for lethargy vomiting and vomiting blood. Symptoms over the last 24 hours. Complicated past medical history. Recent admission for new onset A-fib alcohol abuse disorder hypertension hypercholesterolemia chronic lymphedema.
On exam patient is moderately ill-appearing mildly confused. Will answer simple questions. Mildly hypotensive no respiratory distress. Mildly irregular cardiac. Abdomen nontender. Some dried vomitus on his chest wall. Significant bilateral
lymphedema that is wrapped with some dried blood on the bandaging.
Patient with significant medical issues including significant anemia with drop from baseline, renal failure, acidosis. Anticoagulated. Will reverse anticoagulation the best we can with Kcentra. Blood ordered. Bicarb drip ordered. Refer to
hospitalist nephrology GI. Spouse updated
Previous records reviewed. Discussed with GI. Family updated. Critically ill.
Critical care 35 minutes
Discharge Plan
Departure
Patient Disposition: Admit
Date of Disposition: 06/09/24
Time of Disposition: 11:30
Presentation/result/management discussed w/ accepting MD/DO: Hospitalist
Discharge Problem:
Acute renal failure, Anemia, Acute gastrointestinal bleeding, Acute metabolic encephalopathy
Interventions
Interventions:
*Risk Screen - Suicide Last Done: 06/09/24 10:14
*General Assessment Last Done: 06/09/24 10:10
*Neglect/Abuse Screening Last Done: 06/09/24 10:14
*ED- Fall Risk Assessment Last Done: 06/09/24 10:14
*ED COVID-19 Vaccine History Last Done: 06/09/24 10:14
ED- Neurological Assessment Last Done: 06/09/24 10:15
[2024-06-09 10:48] LABS: Glucose - Point of Care 88 mg/dl (70-99)
[2024-06-09 11:04] LABS: Venous Blood Gas B.E. -16.1 mmol/L (-4 to +4); Venous Blood Gas HCO3 11.6 mmol/L (22-27); Venous Blood Gas O2 Sat % 87.8 %; Venous Blood Gas pCO2 35 mmHg (35-48); Venous Blood Gas pO2 56 mmHg (30-50)
[2024-06-09 11:06] LABS: % Basophils 0.8 % (0-2); % Eosinophils 1.5 % (0-6); % Immature Granulocytes 0.3 % (0-0.5); % Lymphocytes 10.3 % (20.5-51.1); % Monocytes 14.6 % (1.7-9.3); % Neutrophils 72.5 % (42.2-75.2); Absolute Basophils 0.1 10^3/uL (0-0.2); Absolute Eosinophils 0.1 10^3/uL (0-0.7); Absolute Lymphocytes 0.6 10^3/uL (1.2-3.4); Absolute Monocytes 0.9 10^3/uL (0.1-0.6); Absolute Neutrophils 4.4 10^3/uL (1.4-6.5); Hematocrit 17.9 % (39.0-52.0); Hemoglobin 5.6 g/dL (13.0-18.0); Mean Corp Hgb Conc. 31.3 g/dL (33.0-37.0); Mean Corpuscular Hgb 27.1 pg (27.0-31.0); Mean Corpuscular Volume 86.5 fL (80.0-94.0); Mean Platelet Volume 10.2 fL (7.4-10.4); Nucleated Red Blood Cells % 0 % (-); Platelet Count 293 10^3/uL (130-400); Red Blood Cell Count 2.07 10^6/uL (4.70-6.10); Red Cell Dist. Width 17.4 % (11.5-14.5); White Blood Cell Count 6.1 10^3/uL (4.8-10.8)
[2024-06-09 11:07] LABS: Venous Blood Gas pH 7.13 (7.32-7.43)
[2024-06-09 11:09] LABS: INR 2.43; PT 26.5 Sec (11.4-14.6)
[2024-06-09 11:13] LABS: Ammonia 26 umol/L (9-30)
[2024-06-09 11:15] LABS: Lactic Acid 2.7 mmol/L (0.7-2.0)
[2024-06-09 11:19] LABS: ALT (SGPT) 21 U/L (0-50); AST (SGOT) 20 U/L (17-59); Albumin 2.8 g/dl (3.5-5.0); Alkaline Phosphatase 101 U/L (38-126); Calcium 8.7 mg/dl (8.4-10.2); Carbon Dioxide 12 mmol/L (22-30); Chloride 104 mmol/L (98-107); Glucose 100 mg/dl (70-99); Potassium 5.4 mmol/L (3.5-5.1); Sodium 133 mmol/L (135-145); Total Bilirubin 0.5 mg/dl (0.2-1.3); Total Protein 5.8 g/dl (6.3-8.2); eGFR 10.79
[2024-06-09] MEDS: SANDOSTATIN 50 MCG IV (11:20)
[2024-06-09] MEDS: ROCEPHIN 1000 MG IV (11:20)
[2024-06-09] MEDS: NSS 1000 IV (11:20)
[2024-06-09] MEDS: PROTONIX 100 IV (11:20)
[2024-06-09] MEDS: PROTONIX IV 80 MG IV (11:20)
[2024-06-09 11:22] LABS: NT-proBNP 17600 pg/ml
[2024-06-09 11:33] LABS: Blood Urea Nitrogen 161 mg/dl (9-20)
--- NOTE | 2024-06-09 11:33 | W.CON.NEPH ---
Consultation
-
Date/Time Consultation Requested: 06/09/2024 11:30 AM
Date/Time Consultation Performed: 06/09/2024 1138
Requesting Provider: Dr. Phillip
Performing Provider: Dr. Yee
Reason for Consultation: Acute kidney injury/hyperkalemia/metabolic acidosis
Medical History
-
Chief Complaint: Acute kidney injury/hyperkalemia/metabolic acidosis
History of Present Illness:
Patient is a 74-year-old male recently admitted to the hospital here at [facility] from 05/20/2024 to 05/30/2024 with septic shock due to lower extremity cellulitis (with L2/L3 discitis) with multiple complications including acute kidney injury. He
was eventually discharged on IV cefepime for a 6-week course post hospital. He was eventually discharged with a creatinine of 1.6 on 05/30/2024. He has a history of atrial fibrillation which was new in onset since his last admission and is
maintained on Eliquis. He has a history of hypertension for which she has been maintained on valsartan hydrochlorothiazide atenolol and amlodipine. He presented back to the emergency department today from [facility] for
evaluation of reported altered mental status and reportedly having hematemesis sometime between last night and early this morning. Patient unable to provide any history at this current time. Patient does answer some questions appropriately but
otherwise appears quite confused. Based off of record review patient was discharged from this facility to [facility] where he was continued on a 6-week course of Cefipime through a right upper extremity PICC line. He had a stage II pressure
ulcer within the coccyx region that grew polymicrobial species. On presentation to the hospital the patient was profoundly anemic with a hemoglobin of 5.6 and acute renal failure with a BUN of 161 and a creatinine of 5.2. There was associated
acidemia with a serum bicarbonate level of 12 and the patient was hypotensive. Nephrology was then asked to see this critically ill patient.
Past Medical History
Hypertension
Hyperlipidemia
Asthma
Morbid obesity
Lower extremity lymphedema
Type 2 diabetes
AFIB
Lymphedema with hypoalbuminemia
CKD with baseline creatinine of around 1.4-1.6
Alcohol abuse
Proximal right thigh mass
Bilateral nephrolith
Social History
Tobacco: Former Smoker
Alcohol: Daily ( 1-2 drinks)
Drug: None
Personal:
Living: Alone
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
Family History
no ckd
Family History: Not Pertinent
Allergies / Home Medications
Allergy/AdvReac Type Severity Reaction Status Date / Time
No Known Allergies Allergy Unverified 05/20/24 08:12
�Medication �Instructions �Recorded �Confirmed �Type
albuterol sulfate 2.5 mg/3 mL 2.5 mg inhalation R Q6HPRN PRN sob 05/20/24 05/20/24 History
(0.083 %) solution for nebulization
albuterol sulfate 90 mcg/actuation 2 puff inhalation R Q4HPRN PRN sob 05/20/24 05/20/24 History
aerosol inhaler
alprazolam 0.5 mg tablet 0.5 mg PO HSPRN PRN anxiety 05/20/24 05/20/24 History
amlodipine 10 mg tablet 10 mg PO QPM Blood Pressure 05/20/24 05/20/24 History
aspirin 81 mg tablet,delayed 81 mg PO HS Blood Clot 05/20/24 05/20/24 History
release Prevention/Tx
atorvastatin 20 mg tablet (Lipitor) 20 mg PO QPM High Cholesterol 05/20/24 05/20/24 History
cyanocobalamin (vitamin B-12) 500 500 mcg sublingual DAILY Supplement 05/20/24 05/20/24 History
mcg disintegrating
tablet,sublingual
metformin 1,000 mg tablet 1,000 mg PO BID Diabetes 05/20/24 05/20/24 History
mometasone-formoterol HFA 200 2 puff inhalation BID 05/20/24 05/20/24 History
mcg-5 mcg/actuation aerosol Lung/Breathing Issues
inhaler (Dulera)
therapeutic multivitamin 1 tab PO DAILY Supplement 05/20/24 05/20/24 History
valsartan 320 1 tab PO QPM Blood Pressure 05/20/24 05/20/24 History
mg-hydrochlorothiazide 25 mg tablet
acetaminophen 325 mg tablet 650 mg (2 x 325 mg) PO Q4HPRN PRN 05/30/24 Rx
Pain #30 tabs
apixaban 5 mg tablet (Eliquis) 5 mg PO BID 30 days #60 tabs 05/30/24 Rx
atenolol 25 mg tablet 25 mg PO DAILY 30 days #30 tabs 05/30/24 Rx
cefepime 2 gram solution for 2,000 mg IV Q12H Infection #10 ea 05/30/24 Rx
injection
cholecalciferol (vitamin D3) 25 25 mcg PO DAILY #30 tabs 05/30/24 Rx
mcg (1,000 unit) tablet
furosemide 40 mg tablet 40 mg PO DAILY 30 days #30 tabs 05/30/24 Rx
lidocaine 4 % topical patch 1 patch topical DAILY 30 days #30 05/30/24 Rx
ea
miconazole nitrate 2 % topical 1 applic topical BID #85 grams 05/30/24 Rx
powder (Miconazorb AF)
sodium hypochlorite 0.125 % 1 applic topical DAILY #473 mL 05/30/24 Rx
solution (Dakin's Solution)
white petrolatum 42 % topical 1 applic topical DAILY #100 grams 05/30/24 Rx
ointment (Hydrophor)
Review of Systems
-
Unable to obtain full review of systems at this time due to: Acuity
History Source: Patient
All other systems: Negative unless noted
Abdomen/GI: Other (Hematemesis)
Musculoskeletal: Edema
Neurological: Other (Lethargy/confusion)
Physical Exam
Vital Signs
Vital Signs
Temp Pulse Resp BP Pulse Ox
97.8 F 89 25 94/51 95
06/09/24 10:10 06/09/24 10:21 06/09/24 10:21 06/09/24 10:21 06/09/24 10:10
Lab Results
06/09/24 10:48
06/09/24 10:48
WBC 6.1 10^3/uL (4.8-10.8) 06/09/24 10:48
RBC 2.07 10^6/uL (4.70-6.10) L 06/09/24 10:48
Hgb 5.6 g/dL (13.0-18.0) L* 06/09/24 10:48
Hct 17.9 % (39.0-52.0) L* 06/09/24 10:48
Plt Count 293 10^3/uL (130-400) 06/09/24 10:48
Sodium 133 mmol/L (135-145) L 06/09/24 10:48
Potassium 5.4 mmol/L (3.5-5.1) H 06/09/24 10:48
Chloride 104 mmol/L (98-107) 06/09/24 10:48
Carbon Dioxide 12 mmol/L (22-30) L* 06/09/24 10:48
BUN 161 mg/dl (9-20) H* 06/09/24 10:48
Creatinine 5.2 mg/dL (0.7-1.3) H* 06/09/24 10:48
eGFR 10.79 06/09/24 10:48
Glucose 100 mg/dl (70-99) H 06/09/24 10:48
Calcium 8.7 mg/dl (8.4-10.2) 06/09/24 10:48
Gax-U-Tkaoxpsnssn Pept 31443 pg/ml 06/09/24 10:48
Albumin 2.8 g/dl (3.5-5.0) L 06/09/24 10:48
Physical Exam
General: awake. confused , enephalopathic,obese
HEENT: EOMI, Anicteric, Conjunctivae pale, Facial Symmetry and Neck Supple
Respiratory: Normal Excursion, Nonlabored Respirations and Other (decreased BS)
Cardiac: S1/S2, Murmur and Rub
Breast: Deferred by me
Abdomen: Soft, Nontender and Nondistended
Musculoskeletal: Edema (3+)
Skin: Other (Chronic skin changes with the erythema of the lateral lower extremities,
Neuro: Difficult given patient's compromised mental state
Psych: answers some basic questions, flat affect
Data Reviewed
-
Radiology: Image Personally Visualized and interpreted (Chest x-ray personally reviewed cardiomegaly but no congestive heart failure or pneumonic process)
Labs: Labs Reviewed by me (BMP CBC)
Old Records: Reviewed (Reviewed old records from earlier May hospitalization for cellulitis and reviewed nephrology consult and discharge summary, creatinine at discharge 1 point)
Assessment/Plan
-
Impression:
Encephalopathy
Anemia with hematemesis on chronic oral anticoagulation (5.6)
History of recently diagnosed atrial fibrillation on Eliquis
Acute renal failure
Hyperkalemia
Metabolic acidosis (gapped and non gapped)
History of bilateral cellulitis and discitis on cefepime
History of alcohol use
Chronic lymphedema
Plan:
Acute kidney
-Likely prerenally mediated in setting of hypotension and acute anemia due to GI bleed
-BUN elevation likely also partially due to gut reabsorption of blood in setting of GI bleed
-Eliquis to be held
-Blood products to be given for profound anemia
-Will check urine eosinophils to assess for possible acute interstitial nephritis
-Check bladder scan with low threshold for Abraham catheter placement given profound acute renal failure
-Alkaline IV fluids to be provided in setting of metabolic acidosis and hyperkalemia
-No acute dialysis at this time but did discuss with that dialysis would be pursued if needed which she agreed to.
-Maintain MAP of 65 or greater with fluids and blood products and pressors if required
-Patient critically ill with profound anemia with associated hemodynamic compromise in the setting of acute renal failure hyperkalemia and metabolic acidosis
Total Time Spent with Patient (in minutes): 56
[2024-06-09 11:38] LABS: Urine Albumin 3+ (Neg - Trace); Urine Bilirubin Negative (Negative); Urine Character Clear (Clear); Urine Color Yellow; Urine Glucose Negative (Negative); Urine Ketone Negative (Negative); Urine Leukocyte 1+ (Negative); Urine Nitrite Negative (Negative); Urine Occult Blood 2+ (Negative); Urine Urobilinogen Negative (Neg - 1+)
[2024-06-09] MEDS: KCENTRA 100 UNIT IV (11:48)
--- NOTE | 2024-06-09 11:50 | HPS.HSE ---
Family Physician
-
Family Physician: INTERVIEWE UNKNOWN - PT NOT
Chief Complaint
-
Hematemesis this morning
History of Present Illness
74 years old male from half[place]way. History is limited as patient is unable to provide history. History taken from at bedside. Patient is currently [place] [facility] for rehab after hospitalization and treatment of sepsis related to cellulitis.
Patient had new onset of atrial fibrillation and was started on Eliquis. He has underlying chronic kidney disease. History of alcohol use in recent past. Patient was discharged with right midline for IV cefepime that he was receiving at nursing
home. talked to him yesterday in the morning time and he did not have any complaints. At night she texted him but he did not reply. He was found to have altered mental status and having hematemesis early today, no reports of how many times.
Patient was transported to the hospital. He was found to have hemoglobin around 5 with creatinine around 5 and hyperkalemia. He had low blood pressure and was started on resuscitative measures including reversal of anticoagulation, IV fluid,
octreotide and Protonix drip and blood transfusion. No history of abdominal pain or diarrhea. No history of chest pain per his .
Medical History
Past Medical History
Past Medical History: Reports Other (Asthma, obesity, type 2 diabetes, A-fib, hypertension, lymphedema of both lower extremities, recent cellulitis, anxiety, alcohol use, insomnia, anion gap metabolic acidosis, hyperkalemia, CKD, hyperlipidemia,
A-fib, hyponatremia)
Past Surgical History: Reports Other (No recent major surgery)
Social History
Unable to obtain full social history at this time due to: Patient Non-verbal
Personal:
Living: Skilled Nursing
Family History
Family History: Unable to Obtain
Allergies / Home Medications
Allergies reflects when Allergies were last updated in [employer].
Home Medications with original date entered in [employer]
Allergy/Medication List:
Allergies
Allergy/AdvReac Type Severity Reaction Status Date / Time
No Known Allergies Allergy Unverified 05/20/24 08:12
Home Medications
albuterol sulfate 2.5 mg/3 mL (0.083 %) solution for nebulization 2.5 mg inhalation R Q6HPRN PRN sob 05/20/24
albuterol sulfate 90 mcg/actuation aerosol inhaler 2 puff inhalation R Q4HPRN PRN sob 05/20/24
metformin 1,000 mg tablet 1,000 mg PO BID Diabetes 05/20/24
mometasone-formoterol HFA 200 mcg-5 mcg/actuation aerosol inhaler (Dulera) 2 puff inhalation R BID sob 05/20/24
acetaminophen 325 mg tablet 650 mg PO Q4HPRN PRN mild pain/fever >100 06/09/24
alprazolam 0.5 mg tablet (Xanax) 0.5 mg PO HSPRN PRN anxiety 06/09/24
apixaban 5 mg tablet (Eliquis) 5 mg PO BID unspecified a fib 06/09/24
aspirin 81 mg tablet,delayed release 81 mg PO DAILY prevent blood clot 06/09/24
atenolol 25 mg tablet 25 mg PO DAILY HTN 06/09/24
atorvastatin 20 mg tablet 20 mg PO HS HLD 06/09/24
bisacodyl 10 mg rectal suppository (Dulcolax (bisacodyl)) 10 mg NV DAILYPRN PRN day 5 of no BM and MOM ineffective 06/09/24
cefepime 2 gram solution for injection 2,000 mg IV Q12H cellulitis 06/09/24
cholecalciferol (vitamin D3) 25 mcg (1,000 unit) tablet 25 mcg PO DAILY suppliment 06/09/24
cyanocobalamin (vitamin B-12) 500 mcg tablet 500 mcg PO DAILY suppliment 06/09/24
furosemide 40 mg tablet 40 mg PO DAILY essential hypertension 06/09/24
lidocaine 4 % topical patch 1 patch topical DAILY lower back 06/09/24
magnesium hydroxide 400 mg/5 mL oral suspension (Milk of Magnesia) 30 ml PO Q98H PRN constipation, day 4 no bm 06/09/24
melatonin 5 mg capsule 5 mg PO HS insomnia 06/09/24
miconazole nitrate 2 % topical powder 1 applic topical BID groin 06/09/24
sodium phosphates 19 gram-7 gram/118 mL enema (Fleet Enema) 118 ml NV DAILYPRN PRN day 6 of no BM and bisacodyl ineffective 06/09/24
therapeutic multivitamin 1 tab PO DAILY 06/09/24
tramadol 50 mg tablet 50 mg PO Q6HPRN PRN Moderate back pain 06/09/24
Review of Systems
-
Unable to obtain full review of systems at this time due to: Patient Non-verbal (Patient has altered mentation, unable to answer questions.)
Physical Exam
Vital Signs
Vital Signs
Temp Pulse Resp BP Pulse Ox
97.8 F 89 25 94/51 95
06/09/24 10:10 06/09/24 10:21 06/09/24 10:21 06/09/24 10:21 06/09/24 10:10
Physical Exam
General: Appears Chronically Ill and Obese; No Respiratory Distress or Appears in Distress
HEENT: Atraumatic and Other (Evidence of dried blood on his lips)
Respiratory: Decreased Breath Sounds; No Wheezes
Cardiac: S1/S2 and Tachycardia
GI: Soft, Non Tender and Non Distended
Genito-urinary: No Bloody Urine
Musculoskeletal: No Cyanosis
Skin: Warm; No Jaundice
Neuro: Other (Patient is obtunded, unable to answer questions or follow command)
Psych: Other (Patient is lethargic)
Laboratory Results
-
06/09/24 10:48
06/09/24 10:48
Laboratory Results
PT 26.5 Sec (11.4-14.6) H 06/09/24 10:48
INR 2.43 06/09/24 10:48
APTT 39.0 Sec (23.4-35.0) H 06/09/24 10:48
Lactic Acid 2.7 mmol/L (0.7-2.0) H 06/09/24 10:48
Total Bilirubin 0.5 mg/dl (0.2-1.3) 06/09/24 10:48
AST 20 U/L (17-59) 06/09/24 10:48
ALT 21 U/L (0-50) 06/09/24 10:48
Alkaline Phosphatase 101 U/L (38-126) 06/09/24 10:48
Impression/Plan
-
74 years old male presented with altered mentation and was found to have signs of shock with recent GI bleeding/hematemesis
#Hemorrhagic shock secondary to GI bleeding, likely upper GI bleeding from history
Patient had hematemesis,
He is lethargic but denies nausea or abdominal pain upon examining/palpation
Abdomen is not distended, no signs of acute peritonitis
Admit the patient to ICU
Secure to peripheral IV access/ both sides
consented to blood transfusion, ER ordered 2 units of blood
Start the patient on IV Protonix
Check PT/INR/APTT
Discussed with GI physician, plan to do upper EGD once patient is more stable
Vasopressor if needed, blood pressure, systolic around 100
No history of recent alcohol intake.
Empiric antibiotic with history of GI bleed
Check ammonia level
Follow-up with GI and ICU doctors recommendations
# Shock, likely hemorrhagic, recent septic shock and treatment for bilateral lower extremity cellulitis, on IV cefepime.
Continue IV cefepime and broaden IV antibiotics coverage if needed
Order blood culture, follow-up with lactic acid
Chest x-ray to visualize chest and right PICC line. No signs of erythema/swelling around PICC line
Urine test and culture
No history of respiratory symptoms
Consult ID, appreciate input
# Acute kidney injury/hyperkalemia/metabolic acidosis/lactic acidosis
Hold diuretics, metformin, blood pressure medication
Patient seems to have chronic kidney disease stage IIIb from previous records
IV fluid for resuscitation and volume support
IV vasopressors if needed after resuscitate
Volume replacement with blood transfusion
Abraham catheter for input and output monitor
Urine test and electrolytes including eosinophils
IV sodium bicarbonate for acidosis
Maintain MAP of 65 or greater
IV calcium gluconate for hyperkalemia
Renal ultrasound if no improvement
Close monitoring of renal function/potassium, repeat BMP in 4 hours
Consult nephrology, appreciate input
# Toxic metabolic encephalopathy secondary to shock
Patient has altered mentation, answers simple questions but generally obtunded and weak
No history of seizure. No history of headaches. Afebrile. No history of falls/head trauma
Check ammonia level
Order blood gases
CT head with no contrast: No acute finding
Continue with empiric antibiotics
Follow-up with urine and blood cultures.
# History of new onset paroxysmal atrial fibrillation,
EKG consistent with atrial fibrillation. Patient is tachycardic which is reactive to shock
Holding Eliquis and reversal with prothrombin complex concentrate due to GI bleeding
Recent echo showed LVEF 65 to 70%, trace TR, biatrial dilatation, mild MR.
Check troponin. No history of chest pain
Consult cardiology.
# Hyponatremia
Sodium 133, which is around baseline. Patient has history of chronic hyponatremia
# History of diabetes,
Hold metformin
Insulin sliding scale/IV insulin drip in ICU setting
# History of primary hypertension. Holding blood pressure medication due to hypotension.
# Recent hospitalization with incidental finding of proximal R thigh mass: 6.1 x 3.3 x 4.3cm solid lesion with internal vascularity in the proximal right thigh with differential including suspicious lymph node or soft tissue neoplasm. Patient and
were aware of it.
#History of obesity
# History of obesity
#History of stage II pressure coccygeal area injury
# Chronic history of bilateral lower extremity lymphedema
# History of alcohol use. No history of recent alcohol intake.
Total critical time spent to see the patient, examine the patient, review data and lab result, discussed treatment plan with family/patient, consultants, ER doctor,, nursing staff around 85 minutes
[2024-06-09 12:15] LABS: Urine Amorphous Seen
--- NOTE | 2024-06-09 12:22 | CON.GI ---
Addendum entered and electronically signed by Karthik Gray MD 06/09/24 13:29:
Patient seen and examined, agree with nurse practitioner note. Patient is a 74-year-old male with past medical history as noted who presents with coffee-ground emesis. He was recently hospitalized for 10 days for septic shock from polymicrobial
cellulitis and possible discitis. Initially had renal failure that resolved. He went to rehab as brought to the emergency room with coffee-ground emesis and confusion. Upon presentation was found to have a hemoglobin of 5.6, about 3 g lower than
his discharge. Wharf Tally Clerk was 2.4 which was not checked before, was started on Eliquis his last hospitalization. He was also found to be in acute renal failure with potassium 5.4, creatinine 5.2, [id number], with significant acidosis with pH of 7.13.
He has coffee-ground material on his lower extremity Justus bandages, and melena on rectal exam. He has no significant abdominal tenderness now.
1. GI bleed: In the setting of anticoagulation and acute renal failure with acidosis and uremia, though only had coffee ground emesis no red blood emesis or clots. GI bleed is likely more secondary to acidosis/renal failure/uremia, with likely
gastric atony and gastritis/esophagitis in the setting of coagulopathy. Underlying peptic ulcer disease, variceal bleed etc. seems less likely given coffee-ground emesis. At this point we will continue aggressive resuscitation with blood, Kcentra,
DDAVP given his uremia, volume. He has been seen by renal and critical care was consulted. Will continue PPI and plan EGD once resuscitated, though again doubt brisk active bleeding given coffee-grounds.
Original Note:
Consultation
-
Date/Time Consultation Requested: 06/09/24 1200
Date/Time Consultation Performed: 06/09/24 1200
Requesting Provider: MARIA C Kitchen
Performing Provider: Dr. Gray/ALEYDA Burton
Reason for Consultation: anemia, hematemesis
Medical History
Chief Complaint / HPI
Chief Complaint: hematemesis, change in mental status
History of Present Illness:
74-year-old male with past medical history of A-fib on Eliquis, diabetes, hypertension, hyperlipidemia, bilateral lower extremity lymphedema, morbid obesity, stage II pressure injury, proximal right thigh mass, anemia, daily alcohol use (4 ounces
vodka daily), asthma, CKD who had recent admission here from 05/20/2024 through 05/30/2024 for septic shock secondary to bilateral lower extremity cellulitis with possible L2/L3 discitis also associated with acute renal failure with metabolic acidosis
and hyperkalemia that resolved. Patient has a right sided PICC line and was discharged to [facility] ([place]) for rehab. He was continuing on cefepime 2 g IV twice daily. The patient was brought to the emergency room after having episode of hematemesis
somewhere between last evening and this morning as well as change in mental status. The patient was found to have hemoglobin of 5.6, INR of 2.43. There is melena on rectal exam. We are asked to evaluate for the same. Unsure if dose of Eliquis
was given this morning or not. Patient also on aspirin 81 mg daily. Patient is confused. Answers minimal questions appropriately does admit to vomiting. WBC 6.0, hemoglobin 5.6, hematocrit 17.9, platelets 293, sodium 133, potassium 5.4, chloride
104, CO2 12, BUN 161, creatinine 5.2, glucose 100, lactic acid 2.7, total bilirubin 0.5, AST 20, ALT 21, alk phos 101, ammonia 26, proBNP 29260, albumin 2.8. CT of the head was performed that showed exam limited by motion artifact. No evidence for
acute intracranial abnormality. Given the patient's lack of clinical information I discussed with his Sanam at bedside. The patient has never had an endoscopy or colonoscopy. Denies any prior history of liver issues. Does admit to him
drinking approximately 4 ounces of vodka daily prior to his most recent hospitalization. Never had any episodes or issues with GI problems.
Past Medical History
Past Medical History: Other (A-fib, diabetes, hypertension, hyperlipidemia, bilateral lower extremity lymphedema, morbid obesity, stage II pressure injury, proximal right thigh mass, anemia, bilateral lower extremity cellulitis, possible L2/L3
discitis, CKD)
Past Surgical History: Other (Right-sided PICC line)
Social History
Tobacco: Non-Smoker
Alcohol: Daily (4 ounces vodka daily, none since 05/19/2024)
Drug: None
Personal:
Living: Other (From home however currently in [place])
Employment: Retired
Family History
Family History: Other (No known family history of gastrointestinal malignancy or IBD)
Allergies / Home Medications
Allergy/AdvReac Type Severity Reaction Status Date / Time
No Known Allergies Allergy Unverified 05/20/24 08:12
�Medication �Instructions �Recorded
albuterol sulfate 2.5 mg/3 mL 2.5 mg inhalation R Q6HPRN PRN sob 05/20/24
(0.083 %) solution for nebulization
albuterol sulfate 90 mcg/actuation 2 puff inhalation R Q4HPRN PRN sob 05/20/24
aerosol inhaler
alprazolam 0.5 mg tablet 0.5 mg PO HSPRN PRN anxiety 05/20/24
amlodipine 10 mg tablet 10 mg PO QPM Blood Pressure 05/20/24
aspirin 81 mg tablet,delayed 81 mg PO HS Blood Clot 05/20/24
release Prevention/Tx
atorvastatin 20 mg tablet (Lipitor) 20 mg PO QPM High Cholesterol 05/20/24
cyanocobalamin (vitamin B-12) 500 500 mcg sublingual DAILY Supplement 05/20/24
mcg disintegrating
tablet,sublingual
metformin 1,000 mg tablet 1,000 mg PO BID Diabetes 05/20/24
mometasone-formoterol HFA 200 2 puff inhalation BID 05/20/24
mcg-5 mcg/actuation aerosol Lung/Breathing Issues
inhaler (Dulera)
therapeutic multivitamin 1 tab PO DAILY Supplement 05/20/24
valsartan 320 1 tab PO QPM Blood Pressure 05/20/24
mg-hydrochlorothiazide 25 mg tablet
acetaminophen 325 mg tablet 650 mg (2 x 325 mg) PO Q4HPRN PRN 05/30/24
Pain #30 tabs
apixaban 5 mg tablet (Eliquis) 5 mg PO BID 30 days #60 tabs 05/30/24
atenolol 25 mg tablet 25 mg PO DAILY 30 days #30 tabs 05/30/24
cefepime 2 gram solution for 2,000 mg IV Q12H Infection #10 ea 05/30/24
injection
cholecalciferol (vitamin D3) 25 25 mcg PO DAILY #30 tabs 05/30/24
mcg (1,000 unit) tablet
furosemide 40 mg tablet 40 mg PO DAILY 30 days #30 tabs 05/30/24
lidocaine 4 % topical patch 1 patch topical DAILY 30 days #30 05/30/24
ea
miconazole nitrate 2 % topical 1 applic topical BID #85 grams 05/30/24
powder (Miconazorb AF)
sodium hypochlorite 0.125 % 1 applic topical DAILY #473 mL 05/30/24
solution (Dakin's Solution)
white petrolatum 42 % topical 1 applic topical DAILY #100 grams 05/30/24
ointment (Hydrophor)
Review of Systems
-
Unable to obtain full review of systems at this time due to: Other (Patient confused)
Vital Signs
Temp Pulse Resp BP Pulse Ox
97.8 F 93 16 96/58 98
06/09/24 10:10 06/09/24 12:00 06/09/24 12:07 06/09/24 12:00 06/09/24 12:00
Physical Exam
Exam
General: Other (Morbidly obese)
HEENT: Anicteric
Respiratory: Clear (Anterior)
Cardiac: Irregular Rhythm and Murmur
GI: Soft, Non Distended, Normal Bowel Sounds and Tender (Very mild epigastric tenderness)
Rectal: Hem Positive (Rectal exam performed by ER heme positive melena)
Musculoskeletal: Edema (Bilateral lower extremity lymphedema, justus wraps present bilaterally)
Skin: Warm and Dry
Neuro: Awake, Alert and Oriented (To person, confused)
Psych: Calm and Confused
Results
WBC 6.1 10^3/uL (4.8-10.8) 06/09/24 10:48
Hgb 5.6 g/dL (13.0-18.0) L* 06/09/24 10:48
Hct 17.9 % (39.0-52.0) L* 06/09/24 10:48
MCV 86.5 fL (80.0-94.0) 06/09/24 10:48
Plt Count 293 10^3/uL (130-400) 06/09/24 10:48
Absolute Neuts (auto) 4.4 10^3/uL (1.4-6.5) 06/09/24 10:48
PT 26.5 Sec (11.4-14.6) H 06/09/24 10:48
INR 2.43 06/09/24 10:48
APTT 39.0 Sec (23.4-35.0) H 06/09/24 10:48
Sodium 133 mmol/L (135-145) L 06/09/24 10:48
Potassium 5.4 mmol/L (3.5-5.1) H 06/09/24 10:48
Chloride 104 mmol/L (98-107) 06/09/24 10:48
Carbon Dioxide 12 mmol/L (22-30) L* 06/09/24 10:48
BUN 161 mg/dl (9-20) H* 06/09/24 10:48
Creatinine 5.2 mg/dL (0.7-1.3) H* 06/09/24 10:48
Calcium 8.7 mg/dl (8.4-10.2) 06/09/24 10:48
Total Bilirubin 0.5 mg/dl (0.2-1.3) 06/09/24 10:48
AST 20 U/L (17-59) 06/09/24 10:48
ALT 21 U/L (0-50) 06/09/24 10:48
Alkaline Phosphatase 101 U/L (38-126) 06/09/24 10:48
Diagnostic Image Results:
CT of the head:
IMPRESSION:
Examination limited by motion artifact. Given this limitation, no evidence for acute intracranial abnormality.
Chest x-ray pending
Prior GI Procedures:
EGD: Never had
Colonoscopy: Never had
Assessment / Plan
-
74-year-old male with past medical history of A-fib on Eliquis, diabetes, hypertension, hyperlipidemia, bilateral lower extremity lymphedema, morbid obesity, stage II pressure injury, proximal right thigh mass, anemia, daily alcohol use (4 ounces
vodka daily), asthma, CKD who had recent admission here from 05/20/2024 through 05/30/2024 for septic shock secondary to bilateral lower extremity cellulitis with possible L2/L3 discitis also associated with acute renal failure with metabolic acidosis
and hyperkalemia that resolved. Patient has a right sided PICC line and was discharged to [facility] ([place]) for rehab. He was continuing on cefepime 2 g IV twice daily. The patient was brought to the emergency room after having episode of hematemesis
somewhere between last evening and this morning as well as change in mental status. The patient was found to have hemoglobin of 5.6, INR of 2.43. There is melena on rectal exam. We are asked to evaluate for the same.
Impression:
Hematemesis, coffee grounds. Melena present on rectal exam in the setting of anticoagulation(Eliquis)
Confusion, normal ammonia
Acute renal failure
Metabolic acidosis
Anemia, hemoglobin 5.6, was 8.3 on 06/02/2024
Patient recently admitted for bilateral lower extremity cellulitis and possible L2/L3 discitis currently on cefepime 2 g IV every 12
History of alcohol use (4 ounces of vodka daily)-> no known history of liver disease, platelets preserved, LFTs within normal limits, does have elevated INR in the setting of anticoagulation and decreased albumin.
Plan:
-Obtain IV or Central access, currently only with right PICC line. Hard IV access.
-Transfusion to be performed to keep Hgb > 7
-K Centra given
-Eliquis on hold.
-Pantoprazole 80 mg IV given, will start gtt when able.
-DDAVP to be given
-Octreotide bolus given, to start gtt when able. If line not able would give Pantoprazole over Octroetide.
-As per Renal/Overhead Worker/IM for management for metabolic acidosis/lactic acidosis
-Trend CBC, BMP, INR
-Will hold on EGD until more stable as patient without any active bleeding at present time.
-Can plan on US abdomen to eval for cirrhosis, defer until stabilized.
-
-
Thank you for consultation and allowing me to participate in the patient's care. Please call the propagation worker GI physician during the after hours with any questions or concerns.
[2024-06-09] MEDS: DDAVP 60 MCG IV (13:01)
--- NOTE | 2024-06-09 13:15 | CON.INTV ---
Consultation
Consultation Request
Date/Time Consultation Requested: 06/09/2024 - 1241
Date/Time Consultation Performed: 06/09/2024 - 1307
Requesting Provider: Dr. Miraz
Performing Provider: Dr. Berrios
Reason for Consultation: GI bleed
Medical History
-
Chief Complaint: Altered mental status + vomiting blood
History of Present Illness:
74-year-old male with past medical history of hypertension, asthma, morbid obesity, DM 2, restrictive lung disease, snoring, chronic lower extremity lymphedema who presents with AMS + vomiting blood. Patient recently hospitalized here from 3
05/30/2024 due to septic shock likely due to lower extremity cellulitis versus L2-3 discitis. During that hospitalization he was found to have new onset A-fib, and was on a heparin drip at that time and eventually switched to Eliquis. ID was
following at that time for possible L2-3 discitis per L-spine MRI (done on 05/27/2024), and he was to continue a 6-week course of cefepime. This morning of ER arrival, he [place] [facility]em[facility] [place] [facility], unclear how many times. Found to
have a hemoglobin of 5.6 here in the hospital with metabolic acidosis, severe CLIFF with creatinine 5.2, lactate 2.7, with INR 2.43. Blood cultures collected as well as urine cultures. CT head with motion artifact. In the ER he was given
ceftriaxone, Kcentra, NS 0.9% X1 liter, octreotide, and PPI. He was admitted to the ICU for further care and Change Management Coordinator services consulted for additional management/recommendations.
When I saw the patient, he was resting in bed, drowsy but awake and easily to answer questions. Heart rate 91, BP 105/52, saturating 100% on room air. He has no back pain, SIMMONS, nausea, fevers or chills.
PMHx: Hypertension, history of asthma, morbid obesity, DM type II, restrictive lung disease, snoring with suspected COLT, A-fib on Eliquis, history of alcohol use
PSHx: Dental procedures in the past
Past Medical History
Past Medical History: Other (Above as per HPI)
Past Surgical History: Other (Above as per HPI)
Social History
Tobacco: Former Smoker (Remote light smoking history when he was a teenager, with a <5-pack-year history)
Alcohol: Daily (Nightly cocktail 2 per night)
Drug: None
Employment: Retired
Family History
Family History: Cancer (Father: Unknown type, although he was a smoker of 3 packs/day)
Allergies / Home Medications
Allergies
Allergy/AdvReac Type Severity Reaction Status Date / Time
No Known Allergies Allergy Unverified 05/20/24 08:12
Home Medications
�Medication �Instructions �Recorded �Confirmed �Last Taken �Type
albuterol sulfate 2.5 mg/3 mL 2.5 mg inhalation R Q6HPRN PRN sob 05/20/24 06/09/24 05/19/24 History
(0.083 %) solution for nebulization
albuterol sulfate 90 mcg/actuation 2 puff inhalation R Q4HPRN PRN sob 05/20/24 06/09/24 Unknown History
aerosol inhaler
metformin 1,000 mg tablet 1,000 mg PO BID Diabetes 05/20/24 06/09/24 05/19/24 History
mometasone-formoterol HFA 200 2 puff inhalation R BID sob 05/20/24 06/09/24 05/19/24 History
mcg-5 mcg/actuation aerosol
inhaler (Dulera)
acetaminophen 325 mg tablet 650 mg PO Q4HPRN PRN mild 06/09/24 06/09/24 Unknown History
pain/fever >100
alprazolam 0.5 mg tablet (Xanax) 0.5 mg PO HSPRN PRN anxiety 06/09/24 06/09/24 Unknown History
apixaban 5 mg tablet (Eliquis) 5 mg PO BID unspecified a fib 06/09/24 06/09/24 Unknown History
aspirin 81 mg tablet,delayed 81 mg PO DAILY prevent blood clot 06/09/24 06/09/24 Unknown History
release
atenolol 25 mg tablet 25 mg PO DAILY HTN 06/09/24 06/09/24 Unknown History
atorvastatin 20 mg tablet 20 mg PO HS HLD 06/09/24 06/09/24 Unknown History
bisacodyl 10 mg rectal suppository 10 mg MS DAILYPRN PRN day 5 of no 06/09/24 06/09/24 Unknown History
(Dulcolax (bisacodyl)) BM and MOM ineffective
cefepime 2 gram solution for 2,000 mg IV Q12H cellulitis 06/09/24 06/09/24 Unknown History
injection
cholecalciferol (vitamin D3) 25 25 mcg PO DAILY suppliment 06/09/24 06/09/24 Unknown History
mcg (1,000 unit) tablet
cyanocobalamin (vitamin B-12) 500 500 mcg PO DAILY suppliment 06/09/24 06/09/24 Unknown History
mcg tablet
furosemide 40 mg tablet 40 mg PO DAILY essential 06/09/24 06/09/24 Unknown History
hypertension
lidocaine 4 % topical patch 1 patch topical DAILY lower back 06/09/24 06/09/24 Unknown History
magnesium hydroxide 400 mg/5 mL 30 ml PO Q98H PRN constipation, 06/09/24 06/09/24 Unknown History
oral suspension (Milk of Magnesia) day 4 no bm
melatonin 5 mg capsule 5 mg PO HS insomnia 06/09/24 06/09/24 Unknown History
miconazole nitrate 2 % topical 1 applic topical BID groin 06/09/24 06/09/24 Unknown History
powder
sodium phosphates 19 gram-7 118 ml MS DAILYPRN PRN day 6 of no 06/09/24 06/09/24 Unknown History
gram/118 mL enema (Fleet Enema) BM and bisacodyl ineffective
therapeutic multivitamin 1 tab PO DAILY 06/09/24 06/09/24 Unknown History
tramadol 50 mg tablet 50 mg PO Q6HPRN PRN Moderate back 06/09/24 06/09/24 Unknown History
pain
Review of Systems
-
Unable to Obtain full review of systems at this time due to: Acuity
Vitals / Labs / Diagnostic Testing
Vital Signs
Temp Pulse Resp BP Pulse Ox
95 F L 95 18 117/79 100
06/09/24 15:40 06/09/24 15:40 06/09/24 15:40 06/09/24 15:40 06/09/24 14:41
Laboratory Results
06/09/24
10:48
PT 26.5 H
INR 2.43
APTT 39.0 H
Diagnostic Testing:
Physical Exam
-
HEENT: Normocephalic and Anicteric
Cardiovascular: Irregular Rhythm (Irregularly irregular) and Peripheral Edema (+2 lower extremity pitting edema bilaterally)
Respiratory: Clear, Wheeze (negative), Rales (negative), Rhonchi (negative) and Non-Labored Respirations
GI: Soft, Distended (Abdominal obesity), Non Tender and Normal Bowel Sounds
Neurology: Tremors (negative) and Other (Drowsy but easily arousable and answering questions appropriately but then quickly falls back asleep)
Skin: Warm and Dry
General: Respiratory Distress (negative), Comfortable, Fever (negative) and Chills (negative)
Assessment
-
Assessment: 74-year-old male with past medical history of hypertension, asthma, morbid obesity, DM 2, restrictive lung disease, snoring, chronic lower extremity lymphedema who presents with AMS + vomiting blood. Patient recently hospitalized here
from 05/30/2024 due to septic shock likely due to lower extremity cellulitis versus L2-3 discitis. During that hospitalization he was found to have new onset A-fib, and was on a heparin drip at that time and eventually switched to Eliquis. ID
was following at that time for possible L2-3 discitis per L-spine MRI (done on 05/27/2024), and he was to continue a 6-week course of cefepime. This morning of ER arrival, he [place] [facility], unclear how many times. Found
to have a hemoglobin of 5.6 here in the hospital with metabolic acidosis, severe CLIFF with creatinine 5.2, lactate 2.7, with INR 2.43. Blood cultures collected as well as urine cultures. CT head with motion artifact. In the ER he was given
ceftriaxone, Kcentra, NS 0.9% X1 liter, octreotide, and PPI. He was admitted to the ICU for further care and Change Management Coordinator services consulted for additional management/recommendations.
Chronic conditions SYSTEMS ACCOUNTANT: Hypertension, history of asthma, morbid obesity, DM type II, restrictive lung disease, snoring with suspected COLT, A-fib on Eliquis, history of alcohol use
Impression:
#Acute anemia with hematemesis suspicious for upper GI bleed
#Severe CLIFF with mild hyperkalemia
#Metabolic acidosis with increased anion gap due to CLIFF + lactic acidosis
#Toxic�metabolic encephalopathy
#Hyponatremia
#Lactic acidosis
#Elevated proBNP
#Coagulopathy s/p Kcentra
#DM type II
#Morbid obesity with BMI: 44.3
#Hx of asthma on Dulera 200mcg BID at home with rescue albuterol - not currently having an exacerbation
#hx of restrictive lung disease with post-bronchodilator FVC of 1.1L / 30% predicted via spirometry from 04/05/2024
Plan:
- Admit to the ICU with GI, ID and cardiology consults
- Mainly seems that he is having acute encephalopathy from his severe CLIFF as his baseline creatinine is 1.3 to 1.6 and now it is 5.2
- Continue to trend sCr with strict I/O and UOP, and if CLIFF does not improve then he will need HD
- Need to keep close eye on serum [K] and serum HCO3 levels
- Start bicarb gtt
- Assure MAP is >65-70 to help perfuse kidneys
- Trend sNa levels
- CXR from 06/09/2024 is similar to prior CXR from 05/28/2024; also UA does not appear to show infection. ID is resuming antibiotics that he was on from recent hospitalization with cefepime
- Large bore IV x2
- PPI 40mg IV BID
- NPO
- Trend H/H and transfuse if needed to keep Hb>7g/dL; keep plt>50k
- Hold anticoagulants + antiplatelets for now until told otherwise by GI
- Maintain SpO2 >90-94%
- Aspiration precautions although his proBNP is elevated at 17,600, he is currently on room air breathing comfortably with stable CXR. No need for diuresis at this time. Of note, proBNP was 10,600 on recent labs from 05/20/2024. Continue to
closely monitor and start diuresis if he starts to become hypoxic
- Maintain MAP>65
- Replete electrolytes with K>4, Mg>2
- Maintain euglycemia with goal BG 140-180
- prn nebulized bronchodilators - not currently bronchospastic
- Incentive spirometer encouraged 10x per hour for at least 4 hrs a day
- Eventual PT/OT
- Early nutrition once able to eat per GI
- DVT ppx: SCDs for now
Continue ICU level care for this critically ill patient.
Critical care statement: A total of 37 minutes of critical care time was provided for this patient today. This includes management of unstable vital signs, evaluation of the patient at bedside, reviewing the patient's pertinent medical records
including radiographs, microbiology, laboratory evaluations, and discussion with primary team, consultants, pharmacy, nutrition, physical therapy, case management, charge nurse, critical care nursing, and respiratory therapy.
[2024-06-09 13:25] LABS: Troponin I 0.015 ng/ml
[2024-06-09] MEDS: SODIUM BICARBONATE 1150 MEQ IV ×2 (13:36→23:16)
--- NOTE | 2024-06-09 14:00 | PTCARENOTE ---
Received patient from ER. Patient is awake, drowsy, a bit confused. He is on room air, oxygen saturation 100%. afib on the monitor. PAtient has lymphedema. Lower extremities +4, have ernie wraps, will assess and perform wound care. Patient is
incontinent of bowel and bladder. Patient has protonix gtt and one unit of blood infusing into left midline. He is NPO admitted for GIB. due to receive two units. will review orders, patient's family at bedside, oriented to room.
--- NOTE | 2024-06-09 14:00 | CON.CAR ---
Addendum entered and electronically signed by Shekhar Pittman MD 06/09/24 15:33:
I saw and examined the patient.
The Advertising Writer's note was reviewed and I agree with the note.
Comment:
GEN: No distress, awake, Ox3
HEENT: supple, anicteric, mmm
LUNGS: CTA, no wheezes/rales
CV: Irreg, S1/S2, 1/6 syst LSB, no gallop
ABD: soft, BS+, NT/ND
EXT: Severe edema with chronic venous stasis changes
NEURO: Gross non-focal
SKIN: Severe dermatitis
PLan:
74-year-old male with morbid obesity, diabetes, hypertension hyperlipidemia, paroxysmal atrial fibrillation, cellulitis who was recently admitted to [facility] for sepsis and renal failure presents with a GI bleed, reported hematemesis, and
hemoglobin of 5.6. During last admission he was started on Eliquis and atenolol. He returns from [facility] today with change in mental status. Lab work revealed a creatinine of 5.2 as well.
Echo from previous admission reveals preserved LVEF, LVH and mild valve disease. PA pressure was in the 40s.
He remains in rate controlled atrial fibrillation today with borderline blood pressures.
Agree with transfusion. Would stop Eliquis and hold aspirin for now. Will continue a rate control strategy for his A-fib.
Continue to follow creatinine and hemoglobin. Hopefully kidney function improves with transfusion.
Original Note:
Consultation
Consultation Request
Date/Time Consultation Performed: 06/09/24
Requesting Provider: Dr. Mirza
Performing Provider: Veronika Mireles PA-C for Dr. Pittman
Reason for Consultation: GI bleed
Medical History
-
Chief Complaint: confusion, hematemesis
History of Present Illness:
Patient is a 74 yo M with H morbid obesity, type 2 diabetes, hypertension, hyperlipidemia, bilateral lower extremity wounds and alcohol use disorder who had recent admission to [facility] 05/20 - 05/30/2024 for sepsis, bilateral cellulitis,
and acute renal failure. During this admission cardiology was consulted as was noted to have new diagnosis atrial fibrillation. He was rate controlled with atenolol and started on Eliquis. He was discharged to [facility] with IV antibiotics. He now
p[facility] due to altered mental status and reported hematemesis overnight. On arrival hemoglobin 5.6 and creatinine 5.2. Cardiology consulted for evaluation. No chest pain or shortness of breath.
Past medical history:
Admission to 05/20-05/30/24 for sepsis, B/L cellulitis, ARF
Atrial fibrillation, diagnosed 05/2024
Hyponatremia
Morbid obesity, suspect COLT
Type 2 diabetes mellitus
Hyperlipidemia
Hypertension
Lymphedema
B/L LE wounds
Alcohol use disorder
Poor self care
Past Medical History
Past Medical History: Other (See HPI)
Past Surgical History: Other (See HPI)
Social History
Tobacco: Non-Smoker
Alcohol: Daily (3 drinks daily prior to last admission)
Drug: None
Personal:
Living: Other ([facility] since last admission)
Employment: Retired
Family History
Family History: Reviewed & Not Pertinent
Allergies / Home Medications
Allergy/AdvReac Type Severity Reaction Status Date / Time
No Known Allergies Allergy Unverified 05/20/24 08:12
�Medication �Instructions �Recorded �Confirmed �Type
albuterol sulfate 2.5 mg/3 mL 2.5 mg inhalation R Q6HPRN PRN sob 05/20/24 06/09/24 History
(0.083 %) solution for nebulization
albuterol sulfate 90 mcg/actuation 2 puff inhalation R Q4HPRN PRN sob 05/20/24 06/09/24 History
aerosol inhaler
metformin 1,000 mg tablet 1,000 mg PO BID Diabetes 05/20/24 06/09/24 History
mometasone-formoterol HFA 200 2 puff inhalation R BID sob 05/20/24 06/09/24 History
mcg-5 mcg/actuation aerosol
inhaler (Dulera)
acetaminophen 325 mg tablet 650 mg PO Q4HPRN PRN mild 06/09/24 06/09/24 History
pain/fever >100
alprazolam 0.5 mg tablet (Xanax) 0.5 mg PO HSPRN PRN anxiety 06/09/24 06/09/24 History
apixaban 5 mg tablet (Eliquis) 5 mg PO BID unspecified a fib 06/09/24 06/09/24 History
aspirin 81 mg tablet,delayed 81 mg PO DAILY prevent blood clot 06/09/24 06/09/24 History
release
atenolol 25 mg tablet 25 mg PO DAILY HTN 06/09/24 06/09/24 History
atorvastatin 20 mg tablet 20 mg PO HS HLD 06/09/24 06/09/24 History
bisacodyl 10 mg rectal suppository 10 mg NJ DAILYPRN PRN day 5 of no 06/09/24 06/09/24 History
(Dulcolax (bisacodyl)) BM and MOM ineffective
cefepime 2 gram solution for 2,000 mg IV Q12H cellulitis 06/09/24 06/09/24 History
injection
cholecalciferol (vitamin D3) 25 25 mcg PO DAILY suppliment 06/09/24 06/09/24 History
mcg (1,000 unit) tablet
cyanocobalamin (vitamin B-12) 500 500 mcg PO DAILY suppliment 06/09/24 06/09/24 History
mcg tablet
furosemide 40 mg tablet 40 mg PO DAILY essential 06/09/24 06/09/24 History
hypertension
lidocaine 4 % topical patch 1 patch topical DAILY lower back 06/09/24 06/09/24 History
magnesium hydroxide 400 mg/5 mL 30 ml PO Q98H PRN constipation, 06/09/24 06/09/24 History
oral suspension (Milk of Magnesia) day 4 no bm
melatonin 5 mg capsule 5 mg PO HS insomnia 06/09/24 06/09/24 History
miconazole nitrate 2 % topical 1 applic topical BID groin 06/09/24 06/09/24 History
powder
sodium phosphates 19 gram-7 118 ml NJ DAILYPRN PRN day 6 of no 06/09/24 06/09/24 History
gram/118 mL enema (Fleet Enema) BM and bisacodyl ineffective
therapeutic multivitamin 1 tab PO DAILY 06/09/24 06/09/24 History
tramadol 50 mg tablet 50 mg PO Q6HPRN PRN Moderate back 06/09/24 06/09/24 History
pain
Review of Systems
-
History Source: Patient
All other systems: Negative unless noted
Physical Exam
Vital Signs
Temp Pulse Resp BP Pulse Ox
97.8 F 79 21 92/47 100
06/09/24 13:15 06/09/24 13:15 06/09/24 13:15 06/09/24 13:15 06/09/24 13:15
Lab Results
06/09/24 10:48
06/09/24 10:48
Troponin I 0.015 ng/ml 06/09/24 12:48
Uwr-R-Ofqaayklwzk Pept 81578 pg/ml 06/09/24 10:48
Physical Exam
General: Pain and Other (obese)
HEENT: Normocephalic, Anicteric and Moist Mucous Membranes
Respiratory: Clear and Non Labored Respirations
Cardiac: S1/S2 and Irregular Rhythm
GI: Soft, Non Distended and Normal Bowel Sounds
Musculoskeletal: No Clubbing, No Cyanosis and Edema (2-3+ edema of B/L LE with chronic LE wounds and skin changes)
Skin: Warm and Dry
Neuro: Awake, Alert and Oriented (to self. confused at times)
Impression / Plan
-
.
Psychology Assistant: None, initially seen by Dr Vargas
Impression:
Presentation with altered mental status
TME
Hematemesis
Hemorrhagic shock with acute on chronic anemia, suspected GI bleeding
ARF
Hyperkalemia
Metabolic acidosis
Admission to 05/20-05/30/24 for sepsis, B/L cellulitis, ARF
Atrial fibrillation, diagnosed 05/2024
Hyponatremia
Morbid obesity
Suspected COLT
Type 2 diabetes mellitus
Hyperlipidemia
Hypertension
Lymphedema
B/L LE wounds
Alcohol use disorder
Poor self care
Proximal right thigh mass
ECHO 05/20/24: EF 65-70%, mod cLVH, mild RV enlargement, biatrial dilation, mild MR, trace TR, PAP 41mmHg, IV dilated, does not collapse, prominent anterior fat pad present, trivial pericardial effusion noted
Plan:
-Patient with recent admission to [facility] presents back with evidence of hemorrhagic shock, suspected GI bleeding
-Critically ill
-Holding Eliquis started last admission for atrial fibrillation. He was also listed as being on aspirin 81 a day, however this was listed as on hold on discharge 05/30 until he was evaluated by cardiology which has not yet occurred.
-Rate control of atrial fibrillation as able. On atenolol as an outpatient. Holding for now in the setting of hypotension. Heart rates ~100bpm on review of tele
-hemoglobin on admission 5.6. Receiving transfusion. GI consulted and workup underway
-Follow volume status in the setting of fluid resuscitation and transfusions
-recent echo 05/20/24 with preserved EF
-could eventually be considered for watchman
-full code status noted
-d/w nursing
Data Reviewed
-
EKG: Tracing Personally Visualized and interpreted
Medical Tests (Nuc Med, Echo etc): Report Reviewed by me
Labs: Labs Reviewed by me
Old Records: Reviewed
--- NOTE | 2024-06-09 14:11 | CON.ID ---
Consultation
-
Date/Time Consultation Requested: June 09, 2024 1354
Date/Time Consultation Performed: June 09, 2024 1415
Requesting Provider: Dr. Claire Mirza
Performing Provider: Dr. Leyla Booth
Reason for Consultation: Urgent consult for shock
Chief Complaint / Past History
Chief Complaint
Weakness
History of Present Illness
74-year-old male with alcohol use disorder, diabetes mellitus, class III obesity BMI 42, bilateral lower extremity lymphedema who presented to the ER today due to UGIB. He was recently hospitalized from May 20 to May 30 with CLIFF eventually
improved, volume overload, chronic lymphedema with exacerbation with infected wounds treated with cefepime, new onset atrial fibrillation placed on Eliquis, possible L2-L3 discitis on MRI discharged on empiric cefepime x 6 weeks. He was at rehab
when he developed coffee-ground emesis overnight with change in mental status. Of note patient on Eliquis. He was sent to the ER. Hemoglobin 5.6. Blood pressure is low in the 90s systolic. CLIFF. Melena noted on rectal exam in ED. denies
fevers and chills. No abdominal pain. Denies bloody stool. Back pain is improving.
Past History
Additional Past Medical History:
Diabetes mellitus
Asthma
Afib on eliquis
Dyslipidemia
Hypertension
Class III obesity BMI 42
Bilateral lower extremity lymphedema - goes to lymphedema PT
Alcohol use disorder
Allergy History:
No Known Allergies Allergy (Unverified 05/20/24 08:12)
Medications Reviewed: Yes
Current Antibiotics:
Cefepime 2g IV q12
Social History
Tobacco: Former Smoker
Alcohol: Daily (1-2 drinks)
Drug: None
Personal:
Living: Alone
Family History
Family History: Not Pertinent
Review of Systems
Review of Systems
General: Negative Fever or Chills
HEENT: Negative Sinus Problems, Headache or Pharyngitis
Cardiovascular: Negative Chest Pain
Respiratory: Negative Dyspnea or Cough
Gasteroenterology: Vomiting
Genital / Urological: Negative Dysuria or Flank Pain
Endocrine: Weakness
All systems: All other systems were reviewed and were negative
Vital Signs
Temp Pulse Resp BP Pulse Ox
97.8 F 79 21 92/47 100
06/09/24 13:15 06/09/24 13:15 06/09/24 13:15 06/09/24 13:15 06/09/24 13:15
Physical Exam
Physical Exam
Constitutional: Chronically Ill and Obese
Eyes: No Conjunctival Hemorrhage and Sclera Anicteric
Cardiovascular: Regular Rate and S1/S2
Pulmonary: Clear
Gastrointestinal: Soft, Non Tender, Non Distended and Normal Bowel Sounds
Extremities: Edema (BLE lymphedema ) and Other (Lymphedema changes)
Neurological: Awake, Oriented and Other (drowsy)
Lines: PICC (RUE)
Lab / Diagnostic Study Results
06/09/24 10:48
06/09/24 10:48
Abs Immat Gran (auto) 0.0 10^3/uL (0-0.05) 06/09/24 10:48
Absolute Neuts (auto) 4.4 10^3/uL (1.4-6.5) 06/09/24 10:48
Absolute Lymphs (auto) 0.6 10^3/uL (1.2-3.4) L 06/09/24 10:48
Absolute Monos (auto) 0.9 10^3/uL (0.1-0.6) H 06/09/24 10:48
Absolute Basos (auto) 0.1 10^3/uL (0-0.2) 06/09/24 10:48
Immature Gran % 0.3 % (0-0.5) 06/09/24 10:48
Neutrophils % 72.5 % (42.2-75.2) 06/09/24 10:48
Lymphocytes % 10.3 % (20.5-51.1) L 06/09/24 10:48
Monocytes % 14.6 % (1.7-9.3) H 06/09/24 10:48
Eosinophils % 1.5 % (0-6) 06/09/24 10:48
Basophils % 0.8 % (0-2) 06/09/24 10:48
PT 26.5 Sec (11.4-14.6) H 06/09/24 10:48
INR 2.43 06/09/24 10:48
Lactic Acid 2.7 mmol/L (0.7-2.0) H 06/09/24 10:48
Ur Squamous Epith Cells 11-15 /LPF (Few) 06/09/24 11:10
Microbiology Results
Micro:
06/09/24 11:10 Blood Culture - Pending
Blood/Venous
06/09/24 11:10 Urine Culture - Pending
Urine
06/09/24 10:48 Blood Culture - Pending
Blood/Venous
06/09/24 CXR: Mild to moderate elevation of the right hemidiaphragm, stable. There is a band of increased density in the left mid to lower lung, horizontal, stable appearance from prior examination, compatible with stable atelectasis and/or scarring.
Assessment / Plan
# Possible L2/L3 discitis on 05/27/24 MRI, present on admission
- Continue empiric cefepime x 6 weeks through 07/06/24
- Renally adjusted cefepime dose to 1g IV q24.
- Follow weekly CRP, ESR
# UGIB with blood loss anemia
# Low BP due to blood loss
# CLIFF
# Significant BLE lymphedema
- No signs of infection
-Continue wound care and compression
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
Diabetes mellitus
Asthma
Afib on eliquis
Dyslipidemia
Hypertension
Class III obesity BMI 42
Possible L2/L3 discitis on IV cefepime through 07/06/24
Bilateral lower extremity lymphedema - goes to [facility] lymphedema PT
Alcohol use disorder
Care Review
Plan reviewed with: Physician (Dr. Berrios)
[2024-06-09] MEDS: CALCIUM GLUCONATE 1000 MG IV (15:09)
--- NOTE | 2024-06-09 15:15 | W.PN.UPDATE ---
Update Note
Progress Note Update
I reevaluated patient, receiving blood, received Kcentra and DDAVP, overall stable, had brown bowel movement per nursing, no further vomiting, hemodynamics improved. I discussed with patient's at length, will hold on EGD for now, continue
resuscitation without signs of brisk active GI bleeding for now.
[2024-06-09] MEDS: HYDROPHOR 1 APPLIC TOPICAL (15:36)
[2024-06-09 15:37] LABS: Glucose - Point of Care 128 mg/dl (70-99)
--- NOTE | 2024-06-09 15:55 | WOUNDNOTE ---
RIGHT MEDIAL LEG
--- NOTE | 2024-06-09 15:56 | WOUNDNOTE ---
LEFT MEDIAL LEG
--- NOTE | 2024-06-09 15:57 | WOUNDNOTE ---
RIGHT POSTERIOR LEG
--- NOTE | 2024-06-09 15:57 | WOUNDNOTE ---
LEFT POSTERIOR LEG 1948 [id number]
--- NOTE | 2024-06-09 15:58 | WOUNDNOTE ---
SACRAL CREASE WITH MASD
--- NOTE | 2024-06-09 16:26 | WOUNDNOTE ---
WO RN note: Patient admitted with possible GI bleed
See H&P for complete history.
PMH: Obesity, diabetes, HTN, lymphedema, afib, recent cellulitis with hospitalization. Patient transferred from [facility] to [facility].
Wound Location and type/assessment: Patient admitted with bilateral lymphedema with lipodermatosclerosis. Posterior legs with scattered open areas (see worklist for measurements and description). Patient was wearing soiled compression stockings
upon admission. + audible pedal pulses. Gluteal cleft and groin with MASD. Patient is a poor historian at this time. Sacrum and heels are intact.
Pressure redistribution devices in place: Centrella Max Air, heels off-loaded with pillows under calves.
Plan: Local wound care to posterior legs as ordered. Mineral oil to dry skin on legs. Compression with AUGUSTUS applied. Desenex to areas of MASD and Calazime PRN for gluteal cleft. Will confirm orders with hospitalist and update nurse. Updated care
plan and will follow as needed.
Note to case management of equipment requested for discharge:
Recommend follow up at wound care center upon discharge.
[2024-06-09 16:50] LABS: Lactic Acid 1.5 mmol/L (0.7-2.0)
[2024-06-09 16:54] LABS: Calcium 8.5 mg/dl (8.4-10.2); Carbon Dioxide 10 mmol/L (22-30); Chloride 106 mmol/L (98-107); Estimated Creatinine Clearance 17 ml/min; Glucose 131 mg/dl (70-99); Potassium 5.7 mmol/L (3.5-5.1); Sodium 133 mmol/L (135-145); eGFR 11.04
[2024-06-09 17:04] LABS: Blood Urea Nitrogen 161 mg/dl (9-20)
[2024-06-09 18:00] LABS: Glucose - Point of Care 131 mg/dl (70-99)
--- NOTE | 2024-06-09 19:00 | PTCARENOTE ---
Received patient at 1900. Pt. currently in bed. Lethargic but arousable. Oriented to self and place. Denies pain/discomfort. Heart rhythm afib (known). Blood pressure normotensive. Currently on room air. Currently NPO. Abraham catheter in place. Skin
as documented. Discussed plan of care with patient. Vital signs stable at this time.
[2024-06-09] MEDS: NSS (PRESERVATIVE FREE) 10 ML IV (19:58)
[2024-06-09] MEDS: PROTONIX IV 40 MG IV (19:59)
[2024-06-09] MEDS: DESENEX/MITRAZOL/ZEASORB 1 APPLIC TOPICAL (19:59)
[2024-06-09] MEDS: DEXTROSE 50% SYRINGE 12.5 GRAMS IV (20:05)
[2024-06-09] MEDS: NOVOLIN R 7 UNITS IV (20:05)
[2024-06-09 20:56] LABS: Hematocrit 18.9 % (39.0-52.0); Hemoglobin 6.3 g/dL (13.0-18.0); Mean Corp Hgb Conc. 33.3 g/dL (33.0-37.0); Mean Corpuscular Hgb 28.1 pg (27.0-31.0); Mean Corpuscular Volume 84.4 fL (80.0-94.0); Mean Platelet Volume 9.9 fL (7.4-10.4); Platelet Count 235 10^3/uL (130-400); Red Blood Cell Count 2.24 10^6/uL (4.70-6.10); Red Cell Dist. Width 16.9 % (11.5-14.5)
[2024-06-09 23:53] LABS: Glucose - Point of Care 115 mg/dl (70-99)
[2024-06-10] VITALS (30 sets, daily range): BP systolic 99–135; BP diastolic 54–99; BMI 45.8
--- NOTE | 2024-06-10 | PTCARENOTE ---
Pt. hemoglobin increased from 5.6 to 6.3 after 2u PRBC. 3rd unit of PRBC ordered and transfused. Will recheck hemoglobin with AM labs. Vital signs stable at this time.
[2024-06-10 00:04] LABS: Calcium 8.1 mg/dl (8.4-10.2); Carbon Dioxide 8 mmol/L (22-30); Chloride 104 mmol/L (98-107); Estimated Creatinine Clearance 17 ml/min; Glucose 116 mg/dl (70-99); Potassium 5.6 mmol/L (3.5-5.1); Sodium 132 mmol/L (135-145); eGFR 10.79
[2024-06-10 00:18] LABS: Blood Urea Nitrogen 164 mg/dl (9-20)
[2024-06-10] MEDS: SODIUM BICARBONATE 50 MEQ IV (00:25)
[2024-06-10 03:29] LABS: Hematocrit 21.1 % (39.0-52.0); Hemoglobin 7.1 g/dL (13.0-18.0); Mean Corp Hgb Conc. 33.6 g/dL (33.0-37.0); Mean Corpuscular Hgb 28.9 pg (27.0-31.0); Mean Corpuscular Volume 85.8 fL (80.0-94.0); Mean Platelet Volume 10.2 fL (7.4-10.4); Platelet Count 245 10^3/uL (130-400); Red Blood Cell Count 2.46 10^6/uL (4.70-6.10); Red Cell Dist. Width 16.5 % (11.5-14.5); White Blood Cell Count 7.6 10^3/uL (4.8-10.8)
[2024-06-10 03:36] LABS: INR 1.84; PT 21.4 Sec (11.4-14.6)
[2024-06-10 03:37] LABS: APTT 35.5 Sec (23.4-35.0)
[2024-06-10 03:58] LABS: ALT (SGPT) 19 U/L (0-50); AST (SGOT) 18 U/L (17-59); Albumin 2.7 g/dl (3.5-5.0); Alkaline Phosphatase 88 U/L (38-126); Calcium 8.1 mg/dl (8.4-10.2); Carbon Dioxide 10 mmol/L (22-30); Chloride 104 mmol/L (98-107); Estimated Creatinine Clearance 17 ml/min; Glucose 110 mg/dl (70-99); Magnesium 1.9 mg/dl (1.6-2.3); Phosphorus 7.3 mg/dl (2.5-4.5); Potassium 5.5 mmol/L (3.5-5.1); Sodium 134 mmol/L (135-145); Total Bilirubin 0.8 mg/dl (0.2-1.3); Total Protein 5.5 g/dl (6.3-8.2); eGFR 10.79
--- NOTE | 2024-06-10 04:00 | PTCARENOTE ---
Pt. assessment remains unchanged. No signs of GI bleed. Patient has not complained of nausea. No vomiting. Repeat hemoglobin is 7.1 on AM lab work. Vital signs stable at this time.
[2024-06-10 04:03] LABS: Blood Urea Nitrogen 164 mg/dl (9-20)
[2024-06-10] MEDS: SODIUM BICARBONATE 1150 MEQ IV (05:08)
[2024-06-10] MEDS: STERILE WATER FOR INJECTION 10 ML IV (05:08)
[2024-06-10] MEDS: MAXIPIME 1000 MG IV (05:08)
--- NOTE | 2024-06-10 07:42 | W.PN.NEPH.PH ---
Today's Communication / Plan
-
Will obtain dialysis catheter via IR placement
Dialysis to be initiated for profound metabolic acidemia persistent renal failure and hyperkalemia
Assessment/Plan
-
Impression:
Encephalopathy
Anemia with hematemesis on chronic oral anticoagulation (5.6)
History of recently diagnosed atrial fibrillation on Eliquis
Acute renal failure
Hyperkalemia
Metabolic acidosis (gapped and non gapped)
History of bilateral cellulitis and discitis on cefepime
History of alcohol use
Chronic lymphedema
Plan:
Acute kidney
-Likely prerenally mediated in setting of hypotension and acute anemia due to GI bleed
-CLIFF without significant improvement despite volume and blood products
-Hyperkalemia and metabolic acidemia persist despite sodium bicarb and IV fluid support
-Profound azotemia with BUN in excess of 160
-Urine output less than 300 cc, weights
-BUN elevation likely also partially due to gut reabsorption of blood in setting of GI bleed
-Eliquis held
-Blood products to be given for profound anemia
-Will check urine eosinophils to assess for possible acute interstitial nephritis
-Will obtain HD catheter access and initiate dialysis today
-I had previously spoken with yesterday during admission and she requested dialysis would be pursued if necessary
-Maintain MAP of 65 or greater with fluids and blood products and pressors if required
-Patient critically ill with profound anemia with associated hemodynamic compromise in the setting of acute renal failure hyperkalemia and metabolic acidosis
Total Time Spent with Patient (in minutes): 40 minutes
-
-
Date of Service: June 10, 2024
CC / HPI / ROS
-
Chief Complaint:
Acute kidney
History of Present Illness:
Acute kidney injury persists with creatinine over 5 and BUN of excess of 1 6
Hemodynamically labile
Hyperkalemia and profound metabolic acidemia person
Hemoglobin at 7.1 following blood transfusion
Review of Systems:
Oliguric
No fevers but has been hypothermic
Patient mental status completely altered in setting of uremia
Labs
-
Labs:
WBC 7.6 10^3/uL (4.8-10.8) 06/10/24 03:18
RBC 2.46 10^6/uL (4.70-6.10) L 06/10/24 03:18
Hgb 7.1 g/dL (13.0-18.0) L 06/10/24 03:18
Hct 21.1 % (39.0-52.0) L 06/10/24 03:18
Plt Count 245 10^3/uL (130-400) 06/10/24 03:18
Sodium 134 mmol/L (135-145) L 06/10/24 03:18
Potassium 5.5 mmol/L (3.5-5.1) H 06/10/24 03:18
Chloride 104 mmol/L (98-107) 06/10/24 03:18
Carbon Dioxide 10 mmol/L (22-30) L* 06/10/24 03:18
BUN 164 mg/dl (9-20) H* 06/10/24 03:18
Creatinine 5.2 mg/dL (0.7-1.3) H* 06/10/24 03:18
eGFR 10.79 06/10/24 03:18
Glucose 110 mg/dl (70-99) H 06/10/24 03:18
Calcium 8.1 mg/dl (8.4-10.2) L 06/10/24 03:18
Phosphorus 7.3 mg/dl (2.5-4.5) H 06/10/24 03:18
Vlm-S-Swtbcyqlcjw Pept 92789 pg/ml 06/09/24 10:48
Albumin 2.7 g/dl (3.5-5.0) L 06/10/24 03:18
Physical Exam
-
Vital Signs:
Vital Signs
Temp Pulse Resp BP Pulse Ox
97.7 F 105 20 117/65 97
06/10/24 07:24 06/10/24 06:00 06/10/24 06:00 06/10/24 06:00 06/10/24 06:00
Cardiovascular:: Regular rate and rhythm
Respiratory:: Bilateral: Coarse
Lung Excursion:: Normal
Abdomen:: Nontender and Soft
Bowel Sounds:: Decreased
Extremity Edema:: +2: Bilateral:
Abraham Catheter: Yes
--- NOTE | 2024-06-10 07:46 | W.PN.INTV ---
Today's Communication / Plan
Recommendations
Starting HD today per nephrology
Bicarb drip
Antibiotics from recent hospitalization per ID
PPI IV BID
Trend H&H
Monitor serum potassium level
Fluid ultrafiltration per nephro
Aspiration precautions
Continue ICU level care for this critically ill patient
Assessment
-
Assessment: 74-year-old male with past medical history of hypertension, asthma, morbid obesity, DM 2, restrictive lung disease, snoring, chronic lower extremity lymphedema who presents with AMS + vomiting blood. Patient recently hospitalized here
from 05/30/2024 due to septic shock likely due to lower extremity cellulitis versus L2-3 discitis. During that hospitalization he was found to have new onset A-fib, and was on a heparin drip at that time and eventually switched to Eliquis. ID
was following at that time for possible L2-3 discitis per L-spine MRI (done on 05/27/2024), and he was to continue a 6-week course of cefepime. This morning of ER arrival, he was having hematemesis at his prison, unclear how many times. Found
to have a hemoglobin of 5.6 here in the hospital with metabolic acidosis, severe CLIFF with creatinine 5.2, lactate 2.7, with INR 2.43. Blood cultures collected as well as urine cultures. CT head with motion artifact. In the ER he was given
ceftriaxone, Kcentra, NS 0.9% X1 liter, octreotide, and PPI. He was admitted to the ICU for further care and [employer] services consulted for additional management/recommendations.
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
Impression:
#Acute anemia with hematemesis suspicious for upper GI bleed
#Severe CLIFF with mild hyperkalemia
#Metabolic acidosis with increased anion gap due to CLIFF + lactic acidosis
#Toxic�metabolic encephalopathy
#Hyponatremia
#Lactic acidosis � now resolved
#Elevated proBNP
#Coagulopathy s/p Kcentra
#DM type II
#Morbid obesity with BMI: 44.3
#Hx of asthma on Dulera 200mcg BID at home with rescue albuterol - not currently having an exacerbation
#hx of restrictive lung disease with post-bronchodilator FVC of 1.1L / 30% predicted via spirometry from 04/05/2024
Plan:
- Admitted to the ICU with GI, ID and cardiology consults
- Mainly seems that he is having acute encephalopathy from his severe CLIFF as his baseline creatinine is 1.3 to 1.6 and now it is 5.2 as of 06/09/2024
- Per nephrology, he will be started on HD today; IR to place R-IJ HD-catheter
- Continue to trend sCr with strict I/O and UOP
- Need to keep close eye on serum [K] and serum HCO3 levels
- Continue bicarb gtt
- Assure MAP is >65-70 to help perfuse kidneys
- Trend sNa levels
- CXR from 06/09/2024 is similar to prior CXR from 05/28/2024; also UA does not appear to show infection. ID is resumed antibiotics (cefepime) that he was on from recent hospitalization
- Large bore IV x2
- PPI 40mg IV BID
- NPO
- Trend H/H and transfuse if needed to keep Hb>7g/dL; keep plt>50k
- He was given 3 units PRBC on 06/09/2024 with last unit given at 21:33
- Hold anticoagulants + antiplatelets for now until told otherwise by GI
- Maintain SpO2 >90-94%
- Aspiration precautions although his proBNP is elevated at 17,600, he is currently on room air breathing comfortable. CXR today (06/10) does start to show signs of pulmonary edema --> he will be starting HD and defer volume removal to nephro.
- Of note, proBNP was 10,600 on recent labs from 05/20/2024. Continue to closely monitor and start diuresis if he starts to become hypoxic
- Maintain MAP>65
- Replete electrolytes with K>4, Mg>2
- Maintain euglycemia with goal BG 140-180
- prn nebulized bronchodilators - not currently bronchospastic
- Eventual PT/OT
- Early nutrition once able to eat per GI and not confused with risk for aspiration
- DVT ppx: SCDs for now
Continue ICU level care for this critically ill patient.
Critical care statement: A total of 39 minutes of critical care time was provided for this patient today. This includes management of unstable vital signs, evaluation of the patient at bedside, reviewing the patient's pertinent medical records
including radiographs, microbiology, laboratory evaluations, and discussion with primary team, consultants, pharmacy, nutrition, physical therapy, case management, charge nurse, critical care nursing, and respiratory therapy.
Subjective Dataa
Subjective Data
Date of Service:
Date of Service: June 10, 2024
Chief Complaint: [facility] [employer] Follow Up
Subjective:
Patient seen and evaluated today at bedside. Transfused 3 units PRBC yesterday, with last unit given at 9:33 PM. Patient's , Nica, at bedside. Patient is confused with no hematemesis or lower GI bleeding overnight. Heart rate currently
101, BP 99/84 and saturating 93% on room air.
Review of Systems
General: Other (Unable to obtain given patient's acute clinical status/altered mental status/confusion)
Objective Data
Data Reviewed
Vital Signs / I&O / Oxygen:
Vital Signs
Temp Pulse Resp BP Pulse Ox
97.7 F 105 20 117/65 97
06/10/24 07:24 06/10/24 06:00 06/10/24 06:00 06/10/24 06:00 06/10/24 06:00
Intake and Output
06/09/24 06/10/24 06/11/24
06:59 06:59 06:59
Intake Total 3525 / 3525
Output Total 285 / 285
Balance 3240 / 3240
SaO2 97
Physical Exam
General: Respiratory Distress (negative), Chills (negative), Sweats (negative) and Other (Elderly man, appears uncomfortable, moaning, confused)
HEENT: Normocephalic and Anicteric
Cardiovascular: S1-S2, Rub (negative) and Peripheral Edema (+2 lower extremity edema bilaterally)
Respiratory: Wheeze (negative), Crackles (negative), Rhonchi (negative) and Non-Labored Respirations
GI: Soft, Distended (Abdominal obesity), Non Tender and Normal Bowel Sounds
Neurology: Tremors (negative) and Lethargic
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
Labs/Micro/Reports
Lab Data
06/10/24 03:18
06/10/24 03:18
Laboratory Results
06/09/24 06/10/24
10:48 03:18
PT 26.5 H 21.4 H
INR 2.43 1.84
APTT 39.0 H 35.5 H
--- NOTE | 2024-06-10 07:59 | W.PN.GI.CBS2 ---
Today's Communication / Plan
-
Please see assessment and plan for details.
Assessment / Plan
-
1. GI bleed: With coffee-ground emesis and melena, in the setting of anticoagulation and uremia with acute renal failure, now status post DDAVP, Kcentra, no further gross bleeding. Likely stasis/atony from acute renal failure/uremia with gastritis
and esophagitis, less likely peptic ulcer disease. At this point he has no further gross bleeding, though still has anuric failure with uremia. Discussed with nephrology and nursing, for dialysis today. Will continue PPI and close monitoring,
plan eventual EGD when more suitable, sooner if signs of brisk active bleeding.
Subjective
Subjective
Date of Service: June 10, 2024
Patient still confused, received 3 units of blood, hemoglobin 7.1, no bowel movements or vomiting overnight.
Objective
Data Reviewed
Laboratory Data:
Laboratory Results
06/10/24 03:18
06/10/24 03:18
Laboratory Results
PT 21.4 Sec (11.4-14.6) H 06/10/24 03:18
INR 1.84 06/10/24 03:18
APTT 35.5 Sec (23.4-35.0) H 06/10/24 03:18
Phosphorus 7.3 mg/dl (2.5-4.5) H 06/10/24 03:18
Magnesium 1.9 mg/dl (1.6-2.3) 06/10/24 03:18
Total Bilirubin 0.8 mg/dl (0.2-1.3) 06/10/24 03:18
AST 18 U/L (17-59) 06/10/24 03:18
ALT 19 U/L (0-50) 06/10/24 03:18
Alkaline Phosphatase 88 U/L (38-126) 06/10/24 03:18
Vital Signs and I&O:
Vital Signs
Temp Pulse Resp BP Pulse Ox
97.7 F 105 20 117/65 97
06/10/24 07:24 06/10/24 06:00 06/10/24 06:00 06/10/24 06:00 06/10/24 06:00
I&O
06/09/24 06/10/24 06/11/24
06:59 06:59 06:59
Intake Total 3525 / 3525
Output Total 285 / 285
Balance 3240 / 3240
Physical Exam
Physical Exam
General: NAD, disoriented
Abdomen: normal bowel sounds, soft, no tenderness, no masses or bruits, no ascites
--- NOTE | 2024-06-10 08:00 | PTCARENOTE ---
Assumed care of patient. Pt rec'd on resting w/ at bedside. Pt responds to verbal and tactile stimuli. Yells out and moans w/ repositioning. Able to move upper extemities...weak LE's. S1 S2 irregular w/ afib on monitor. DP's by doppler.
+4 LLE...elevated on pillows. On R/A...sats 97%. No cough. Lungs diminished throughout. Abdomen obese...hypo BS. NPO. Abraham draining cloudy dark tea colored urine w/ sediment. Abraham care done...scant bloody drainage around urethra. Skin pale
in color...bilateral lower legs w/ dressings and ernie wraps per character impersonator. Right SL PICC flushes w/o issue. Left midline w/ IVF's infusing. 20P LAC. VS documented. Safe environment confirmed. updated on plan of care. Will continue to
monitor.
[2024-06-10] MEDS: HYDROPHOR 1 APPLIC TOPICAL (08:13)
[2024-06-10] MEDS: DESENEX/MITRAZOL/ZEASORB 1 APPLIC TOPICAL ×2 (08:13→20:00)
[2024-06-10] MEDS: NSS (PRESERVATIVE FREE) 10 ML IV ×2 (08:15→19:58)
[2024-06-10] MEDS: PROTONIX IV 40 MG IV ×2 (08:15→19:58)
--- NOTE | 2024-06-10 10:48 | CM ---
Patient seen bedside w/ spouse. Initial assessment completed. Prev admission (05/20-05/30), patient d/c to [facility] for skilled rehab. Admitted from [facility] for hematemesis.
Per spouse and chart, patient resides w/ spouse, Sanam, who lives/works in [facility] during the week, is there on weekends. Per spouse, current home in [place] is their second home and their primary home is in [facility]. Per spouse, patient remained in
their second home following COVID.
They live in a 2STH- 1 step to enter the home.
The patient has been independent in ADLs and ambulation but has been unwell the past few months and not managing well on his own, per spouse.
He was walking with his SPC, now using his rollator, has nebulizer.
[facility] SNF for rehab. No HC hx
PCP: Lisha Gold
Pharmacy: [facility]
Spouse stated patient will need rehab at d/c. Patient does not want to return to [facility], spouse prefers a referral to [facility]
PT/OT orders requested
Plan: SNF likely
--- NOTE | 2024-06-10 11:03 | W.PN.ID1 ---
Date of Service
Date of Service: June 10, 2024
Today's Communication
Continue cefepime
Assessment / Plan
# Possible L2/L3 discitis on 05/27/24 MRI, present on admission
- Continue empiric cefepime x 6 weeks through 07/06/24
- To start HD today
- Move cefepime dose 1g IV q24 to qPM.
- Follow weekly CRP, ESR
# UGIB with blood loss anemia
# Low BP due to blood loss
# CLIFF - start HD today.
# Significant BLE lymphedema
- No signs of infection
-Continue wound care and compression
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
Diabetes mellitus
Asthma
Afib on eliquis
Dyslipidemia
Hypertension
Class III obesity BMI 42
Possible L2/L3 discitis on IV cefepime through 07/06/24
Bilateral lower extremity lymphedema - goes to lymphedema PT
Alcohol use disorder
Chief Complaint
-: Other (possible discitis)
Subjective / Review of Systems
at bedside. pt resting comfortably.
Vital Signs / Physical Exam
Vital Signs
Vital Signs
Temp Pulse Resp BP Pulse Ox
97.7 F 91 19 121/73 96
06/10/24 07:24 06/10/24 10:30 06/10/24 10:30 06/10/24 09:00 06/10/24 10:30
Physical Exam
Constitutional: Non-toxic
Cardiovascular: Regular Rate and S1/S2
Pulmonary: Clear
Gastrointestinal: Soft, Non Tender, Non Distended and Normal Bowel Sounds
Extremities: Edema
Lines: PICC
Objective Data
Lab Data
Lab Results
06/10/24 08:52
06/10/24 03:18
PT 21.4 Sec (11.4-14.6) H 06/10/24 03:18
INR 1.84 06/10/24 03:18
APTT 35.5 Sec (23.4-35.0) H 06/10/24 03:18
Estimated Creat Clear 17 ml/min 06/10/24 03:18
Lactic Acid 1.5 mmol/L (0.7-2.0) 06/09/24 16:25
Total Bilirubin 0.8 mg/dl (0.2-1.3) 06/10/24 03:18
AST 18 U/L (17-59) 06/10/24 03:18
ALT 19 U/L (0-50) 06/10/24 03:18
Alkaline Phosphatase 88 U/L (38-126) 06/10/24 03:18
Most recent labs reviewed.
Micro Results:
06/09/24 10:48 Blood Culture - Preliminary
Blood/Venous No Growth in 24 hours- Final report to follow
06/09/24 11:10 Urine Culture - Final
Urine NO GROWTH
06/09/24 16:25 MRSA Screen - Pending
Nose
06/09/24 11:10 Blood Culture - Pending
Blood/Venous
06/09/24 CXR: Mild to moderate elevation of the right hemidiaphragm, stable. There is a band of increased density in the left mid to lower lung, horizontal, stable appearance from prior examination, compatible with stable atelectasis and/or scarring.
[2024-06-10] MEDS: SODIUM BICARBONATE IV (11:37)
--- NOTE | 2024-06-10 12:00 | PTCARENOTE ---
Jolanta (HD RN) at bedside. Pt scheduled for HD at noon. IVF's stopped per . No major changes in physical assessment. VS documented. Will continue to monitor.
[2024-06-10] MEDS: FLEXBUMIN 25% FOR HEMODIALYSIS 12.5 GRAMS IV ×2 (12:03→13:20)
[2024-06-10] MEDS: MANNITOL 25% 12.5 GRAMS IV ×2 (12:05→13:25)
--- NOTE | 2024-06-10 12:27 | W.PN.NEPH.HD ---
Assessment
-
Patient seen on HD
will d/c IVFs
HD again tomorrow
Progress Note - Hemodialysis
-
Date of Service: June 10, 2024
Duration: 30 minutes and 2 hours
Potassium Bath: 2
Calcium Bath: 2.5
Opti-Dialyzer: 160
Ultrafiltration: Other (1kg)
Blood Flow: 200
Dialysate Flow: 600
Heparin: none
EPO: none
[2024-06-10 12:39] LABS: Glucose - Point of Care 128 mg/dl (70-99)
--- NOTE | 2024-06-10 13:28 | W.PN.HOSP.TC ---
Today's Communication/Plan
-
Continue to monitor Hgb
PPI IV
Dialysis
Continue to monitor in the ICU
See plan
Assessment / Plan
Assessment / Plan
Physical Exam
General: Not in acute distress
HEENT: Normocephalic
Respiratory: Clear to Auscultation Bilaterally
Cardiac: S1/S2 and Regular Rhythm
GI: Soft, Non Tender and Non Distended. Positive bowel sounds.
Musculoskeletal: 2+ edema in bilateral lower extremities
Skin: Warm. Dry.
Neuro: Awake, Alert, Lethargic.
Psych: Confused
Assessment/Plan
74 years old male presented with altered mentation and was found to have signs of shock with recent GI bleeding/hematemesis
#Hemorrhagic shock secondary to GI bleeding/hematemesis, likely upper GI bleeding from history
#Coagulopathy s/p Kcentra
More alert, but remains confused
Continue monitoring in the ICU
Maintain peripheral large bore IV access/ both sides
Patient received a total of 3 units of PRBCs so far
Continue IV Protonix 40 mg BID
NPO
Received KCentra in the setting of elevated INR
GI physician plans to do upper EGD once patient is more stable
No history of recent alcohol intake.
Follow-up with GI and ICU doctors recommendations
Hold anticoagulants (hold home Eliquis) and antiplatelets for now until told otherwise by GI
#Recent septic shock and treatment for bilateral lower extremity cellulitis, on IV cefepime.
#Possible L2/L3 discitis on 05/27/24 MRI, present on admission
Continue empiric cefepime x 6 weeks through 07/06/24
Chest x-ray to visualize chest and right PICC line. No signs of erythema/swelling around PICC line
Consult ID, appreciate input
#Severe acute kidney injury(likely prerenal)/hyperkalemia/anion gap metabolic acidosis (due to lactic acidosis and CLIFF)
#Azotemia suspected due to upper GI bleed and acute kidney injury
Hold diuretics, metformin, blood pressure medication
Patient seems to have chronic kidney disease stage IIIb from previous records
Baseline creatinine is 1.3 to 1.6
Despite IV fluids and red blood cell transfusion, renal function hasn't really improved -- so dialysis today
Abraham catheter for input and output monitor
Patient received IV sodium bicarbonate for acidosis, now getting dialysis (see below)
Maintain MAP of 65 or greater
Check urine eosinophils
Renal ultrasound if no improvement
Close monitoring of renal function/potassium
Consult nephrology, appreciate input --> dialysis to be started today
#Lactic Acidosis - RESOLVED
# Toxic metabolic encephalopathy secondary to shock and CLIFF
Patient has altered mentation, answers simple questions but generally obtunded and weak
No history of seizure. No history of headaches. Afebrile. No history of falls/head trauma
Ammonia level normal
Blood gas with pH 7.13 on 06/09/24
CT head with no contrast: No acute finding
Continue with empiric antibiotics as above
Follow-up with urine and blood cultures --> no growth so far
#Recent new onset paroxysmal atrial fibrillation
EKG consistent with atrial fibrillation.
Holding Eliquis and reversal with prothrombin complex concentrate due to GI bleeding
Also do not resume outpatient Aspirin (however this was listed as on hold on discharge 05/30/24 until he was evaluated by cardiology which has not yet occurred)
Hold Atenolol in setting of hypotension
Recent echo showed LVEF 65 to 70%, trace TR, biatrial dilatation, mild MR.
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
Cardiology consultation recommendations appreciated
# Hyponatremia
Sodium ~133, which is around baseline. Patient has history of chronic hyponatremia
#Type 2 Diabetes Mellitus
Hold metformin
Consider insulin sliding scale/IV insulin drip in ICU setting
#History of primary hypertension. Holding blood pressure medication due to hypotension.
#Recent hospitalization with incidental finding of proximal R thigh mass: 6.1 x 3.3 x 4.3cm solid lesion with internal vascularity in the proximal right thigh with differential including suspicious lymph node or soft tissue neoplasm. Patient and
were aware of it.
#Elevated proBNP
-proBNP 01443
-Volume removal via dialysis per nephrology
#Morbid Obesity
#History of stage II pressure coccygeal area injury
# Chronic history of bilateral lower extremity lymphedema
# History of alcohol use. No history of recent alcohol intake
#History of asthma on Dulera 200mcg BID at home with rescue albuterol - not currently having an exacerbation
#History of restrictive lung disease with post-bronchodilator FVC of 1.1L / 30% predicted via spirometry from 04/05/2024
# Significant BLE lymphedema
-Continue wound care and compression
Code Status: Full Code
DVT Prophylaxis: SCDs (salesperson hearing aids agreed that patient can get SCDs)
Significant anemia needing several red blood cell transfusions needing ICU monitoring is a high risk encounter.
Anticipated Discharge: > 48 hours
Subjective/Interval History
-
Date of Service: June 10, 2024
Patient was seen and examined. No hematemesis or GI bleeding overnight.
Objective Data
-
Labs:
Laboratory Results
06/10/24 06/10/24
03:18 08:52
WBC 7.6
Hgb 7.1 L 7.0 L
Hct 21.1 L 21.0 L
Plt Count 245
PT 21.4 H
INR 1.84
APTT 35.5 H
Sodium 134 L
Potassium 5.5 H
Chloride 104
Carbon Dioxide 10 L*
BUN 164 H*
Creatinine 5.2 H*
Glucose 110 H
Calcium 8.1 L
Total Bilirubin 0.8
AST 18
ALT 19
Alkaline Phosphatase 88
Vital Signs:
Vital Signs
Temp Pulse Resp BP Pulse Ox
97.7 F 91 19 121/73 96
06/10/24 11:03 06/10/24 10:30 06/10/24 10:30 06/10/24 09:00 06/10/24 10:30
I&O
06/09/24 06/10/24 06/11/24
06:59 06:59 06:59
Intake Total 3525 / 3725 600 / 600
Output Total 285 / 290 40 / 40
Balance 3240 / 3435 560 / 560
[2024-06-10] MEDS: HEPARIN 2200 UNITS INTRACATH (14:15)
--- NOTE | 2024-06-10 16:00 | PTCARENOTE ---
HD completed w/o issue....1 kg removed per HD RN. For HD tmr. No major changes in physical assessment. Yells w/ repositioning. VS documented. Will continue to monitor.
[2024-06-10 17:12] LABS: Hepatitis B Surface Antigen Negative (Negative)
[2024-06-10 17:29] LABS: Hepatitis B Surface Antibody Positive; Hepatitis C Antibody Negative (Negative)
--- NOTE | 2024-06-10 19:00 | PTCARENOTE ---
Received pt. at 1900. Pt. currently in bed. Drowsy but arousable to voice. Oriented to self. Follows simple commands. Afebrile. Heart rhythm afib. Blood pressure normotensive. Currently on room air. Lungs sound diminished. NPO. Abraham catheter in
place. Skin as documented. Discussed plan of care with patient. Vital signs stable at this time.
[2024-06-10 19:29] LABS: Glucose - Point of Care 123 mg/dl (70-99)
[2024-06-11] VITALS (43 sets, daily range): BP systolic 122–170; BP diastolic 67–108; BMI 44.9
--- NOTE | 2024-06-11 | PTCARENOTE ---
Pt. assessment unchanged. Resting comfortably. Vital signs stable at this time.
[2024-06-11 00:32] LABS: Glucose - Point of Care 129 mg/dl (70-99)
[2024-06-11 03:45] LABS: Hematocrit 20.3 % (39.0-52.0); Hemoglobin 6.9 g/dL (13.0-18.0); Mean Corpuscular Hgb 28.5 pg (27.0-31.0); Mean Corpuscular Volume 83.9 fL (80.0-94.0); Mean Platelet Volume 9.9 fL (7.4-10.4); Platelet Count 200 10^3/uL (130-400); Red Blood Cell Count 2.42 10^6/uL (4.70-6.10); Red Cell Dist. Width 16.9 % (11.5-14.5); White Blood Cell Count 6.7 10^3/uL (4.8-10.8)
--- NOTE | 2024-06-11 04:00 | PTCARENOTE ---
Pt. assessment remains unchanged. AM labs drawn. Vital signs stable at this time.
[2024-06-11 04:09] LABS: Blood Urea Nitrogen 119 mg/dl (9-20); Calcium 8.2 mg/dl (8.4-10.2); Carbon Dioxide 18 mmol/L (22-30); Chloride 100 mmol/L (98-107); Estimated Creatinine Clearance 21 ml/min; Glucose 115 mg/dl (70-99); Magnesium 1.9 mg/dl (1.6-2.3); Phosphorus 5.9 mg/dl (2.5-4.5); Potassium 4.4 mmol/L (3.5-5.1); Sodium 136 mmol/L (135-145); eGFR 13.94
[2024-06-11 06:24] LABS: Glucose - Point of Care 115 mg/dl (70-99)
--- NOTE | 2024-06-11 06:53 | W.PN.HOSP.TC ---
Today's Communication/Plan
-
Given another unit while HD, total will be 5 units
Start low IV BB
Abdominal X ray ( pt unable to respond if tender or not)
Add ISS Q 6
IVF as tolerated.
Assessment / Plan
Assessment / Plan
Physical Exam
General: chronically ill looking
HEENT: Normocephalic
Respiratory: limited, no wheezes
Cardiac: S1/S2
GI: Soft, not distended, unable to respond if tenderness or not
Musculoskeletal: 2+ edema in bilateral lower extremities
Skin: Warm. Dry.
Neuro: Awake, but disoriented, unable to follow commands ( Status unchanged per staff)
Psych: Confused
Assessment/Plan
74 years old male presented with altered mentation and was found to have signs of shock with recent GI bleeding/hematemesis
#Hemorrhagic shock secondary to GI bleeding/hematemesis, likely upper GI bleeding from history
#Coagulopathy s/p Kcentra
Toxic metabolic encephalopathy
Remains confused and unable to answer questions or follow commands
Unable to differentiate if positive abdominal tenderness or not as pt is unable to respond, will do abdominal x ray
Continue monitoring in the ICU
Maintain peripheral large bore IV access/ both sides
Patient received a total of 5 units of PRBCs so far
Continue IV Protonix 40 mg BID
NPO
Received KCentra in the setting of elevated INR
GI physician plans to do upper EGD once patient is more stable and since no signs of active bleeding, with absence of feliciano and vomiting.
No history of recent alcohol intake.
Follow-up with GI and ICU doctors recommendations
Hold anticoagulants (hold home Eliquis) and antiplatelets for now until told otherwise by GI
# TME
CT head on admission: no evidence for acute intracranial abnormality.
Eventual brain images as MRI if no improvement.
#Recent septic shock and treatment for bilateral lower extremity cellulitis, on IV cefepime.
#Possible L2/L3 discitis on 05/27/24 MRI, present on admission
Continue empiric cefepime x 6 weeks through 07/06/24
Chest x-ray to visualize chest and right PICC line. No signs of erythema/swelling around PICC line
Consulted ID, appreciate input
#Severe acute kidney injury(likely prerenal)/hyperkalemia/anion gap metabolic acidosis (due to lactic acidosis and CLIFF)
#Azotemia suspected due to upper GI bleed and acute kidney injury
Held diuretics, metformin, blood pressure medication
Patient seems to have chronic kidney disease stage IIIb from previous records
Baseline creatinine is 1.3 to 1.6
Despite IV fluids and red blood cell transfusion, renal function hasn't really improved -- so dialysis started 06/10
Abraham catheter for input and output monitor
Patient received IV sodium bicarbonate for acidosis, now getting dialysis (see below)
Close monitoring of renal function/potassium
Consult nephrology, appreciate input --> dialysis to be started today
# Significant history of medical non compliance, per records. But luckily patient was sent to [facility] this time,
per history from previous admission, patient was not following with his family physician, stopped seeing lymphedema clinic, and was drinking alcohol daily Vodka before falling acutely ill this May. And Also he seemed to live alone, was using one
story of house by himself most of the week.
#Lactic Acidosis - RESOLVED
# Toxic metabolic encephalopathy secondary to shock and CLIFF
Patient has altered mentation, answers simple questions but generally obtunded and weak
No history of seizure. No history of headaches. Afebrile. No history of falls/head trauma
Ammonia level normal
Blood gas with pH 7.13 on 06/09/24
CT head with no contrast: No acute finding
Continue with empiric antibiotics as above
Follow-up with urine and blood cultures --> no growth so far
#Recent new onset paroxysmal atrial fibrillation
BP improved, will do low dose IV metoprolol
EKG consistent with atrial fibrillation.
Holding Eliquis and reversal with prothrombin complex concentrate due to GI bleeding, also holding aspirin per cardiology.
Held Atenolol in setting of hypotension
Recent echo showed LVEF 65 to 70%, trace TR, biatrial dilatation, mild MR.
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
Cardiology consultation recommendations appreciated
# Hyponatremia
#Type 2 Diabetes Mellitus
Hold metformin
Add insulin sliding scale
#History of primary hypertension. Improved BP, Resuming BB
#Recent hospitalization with incidental finding of proximal R thigh mass: 6.1 x 3.3 x 4.3cm solid lesion with internal vascularity in the proximal right thigh with differential including suspicious lymph node or soft tissue neoplasm. Patient and
were aware of it.
#Elevated proBNP
-proBNP 30730
-Volume removal via dialysis per nephrology
#Morbid Obesity
#History of stage II pressure coccygeal area injury
# Chronic history of bilateral lower extremity lymphedema
# History of alcohol use. No history of recent alcohol intake
#History of asthma on Dulera 200mcg BID at home with rescue albuterol - not currently having an exacerbation
#History of restrictive lung disease with post-bronchodilator FVC of 1.1L / 30% predicted via spirometry from 04/05/2024
# Significant BLE lymphedema
-Continue wound care and compression
Code Status: Full Code
DVT Prophylaxis: SCDs (global sales director agreed that patient can get SCDs)
Total time spent to see the patient, examine the patient, review data and lab result, discussed treatment plan with family/patient, consultants,nursing staff around 57minutes
Anticipated Discharge: > 48 hours
Subjective/Interval History
-
Date of Service: June 11, 2024
Still confused, unable to follow commands
No fevers
No hypotension
Given one unit of blood over night
Objective Data
-
Labs:
Laboratory Results
06/11/24
03:21
WBC 6.7
Hgb 6.9 L*
Hct 20.3 L*
Plt Count 200
Sodium 136
Potassium 4.4
Chloride 100
Carbon Dioxide 18 L
BUN 119 H*
Creatinine 4.2 H*
Glucose 115 H
Calcium 8.2 L
Vital Signs:
Vital Signs
Temp Pulse Resp BP Pulse Ox
97.8 F 94 24 138/77 98
06/11/24 04:25 06/11/24 06:00 06/11/24 06:00 06/11/24 06:00 06/11/24 06:00
I&O
06/09/24 06/10/24 06/11/24
06:59 06:59 06:59
Intake Total 3525 / 3725 600 / 600
Output Total 285 / 290 130 / 130
Balance 3240 / 3435 470 / 470
--- NOTE | 2024-06-11 07:45 | PTCARENOTE ---
Assumed care of patient. Pt awake...responds to verbal and tactile stimuli. Will make eye contact when name is called. Yells out and moans w/ repositioning. Does not follow commands. Able to move upper extemities...weak LE's. S1 S2 irregular
w/ afib on monitor. DP's by doppler. +4 LLE...elevated on pillows. On 2L...sats 97%. Attempted R/A...sats decreased to 87-88%. Lungs diminished throughout. Abdomen obese...hypo BS. NPO. Abraham draining scant cloudy dark tea colored urine w/
sediment. Abraham care done...scant bloody drainage around urethra. Skin pale in color. Bilateral LE's ernie wraps noted. Right SL PICC flushes w/o issue. Left midline. 20P LAC. VS documented. To receive HD this am. Addtional one unit PRBC's
ordered. Safe environment confirmed. Will continue to monitor.
[2024-06-11] MEDS: NSS (PRESERVATIVE FREE) 10 ML IV ×2 (07:49→19:54)
[2024-06-11] MEDS: DESENEX/MITRAZOL/ZEASORB 1 APPLIC TOPICAL ×2 (07:49→19:53)
[2024-06-11] MEDS: PROTONIX IV 40 MG IV ×2 (07:49→19:54)
--- NOTE | 2024-06-11 07:49 | W.PN.GI.CBS2 ---
Today's Communication / Plan
-
Please see assessment and plan for details.
Assessment / Plan
-
1. GI bleed: With coffee-ground emesis and melena, in the setting of anticoagulation and uremia with acute renal failure, now status post DDAVP, Kcentra, no further gross bleeding. Likely stasis/atony from acute renal failure/uremia with gastritis
and esophagitis, less likely peptic ulcer disease. At this point he has no further gross bleeding, though still has anuric failure with uremia which is slowly improving, status post first dialysis yesterday. Discussed with hospitalist and nursing.
Will continue supportive care for today, PPI, observation, for repeat dialysis. While he does have some mild tenderness on exam he has diffuse tenderness, and is overall soft, unlikely more significant pathology though if worsens then we will plan
imaging. Without gross bleeding, improved hemodynamics, will hold on endoscopy until more suitable, possibly tomorrow after further dialysis and improvement in uremia, sooner if signs of brisk active bleeding.
Subjective
Subjective
Date of Service: June 11, 2024
No new events overnight, no bowel movements, no vomiting. Hemodynamics are improved, off pressors. Receiving further transfusion today. Had dialysis yesterday, for another session today and likely tomorrow.
Objective
Data Reviewed
Laboratory Data:
Laboratory Results
06/11/24 03:21
06/11/24 03:21
Laboratory Results
PT 21.4 Sec (11.4-14.6) H 06/10/24 03:18
INR 1.84 06/10/24 03:18
APTT 35.5 Sec (23.4-35.0) H 06/10/24 03:18
Phosphorus 5.9 mg/dl (2.5-4.5) H 06/11/24 03:21
Magnesium 1.9 mg/dl (1.6-2.3) 06/11/24 03:21
Total Bilirubin 0.8 mg/dl (0.2-1.3) 06/10/24 03:18
AST 18 U/L (17-59) 06/10/24 03:18
ALT 19 U/L (0-50) 06/10/24 03:18
Alkaline Phosphatase 88 U/L (38-126) 06/10/24 03:18
Vital Signs and I&O:
Vital Signs
Temp Pulse Resp BP Pulse Ox
97.8 F 94 24 138/77 98
06/11/24 07:11 06/11/24 06:00 06/11/24 06:00 06/11/24 06:00 06/11/24 06:00
I&O
06/10/24 06/11/24 06/12/24
06:59 06:59 06:59
Intake Total 3525 / 3725 600 / 600
Output Total 285 / 290 130 / 130
Balance 3240 / 3435 470 / 470
Physical Exam
Physical Exam
General: NAD arousable though not answering questions appropriately
Abdomen: Few normal bowel sounds, soft, mild diffuse tenderness, no masses or bruits, no ascites
[2024-06-11] MEDS: HYDROPHOR 1 APPLIC TOPICAL (07:50)
[2024-06-11] MEDS: MANNITOL 25% 12.5 GRAMS IV ×2 (08:10→09:30)
--- NOTE | 2024-06-11 08:17 | W.PN.NEPH.HD ---
Assessment
-
Patient seen on dialysis
Systolic blood pressure 137
Presently hemodynamically stable at current Kelli
Patient will receive 2 units of blood today as anemia persist
Patient mental status remains altered
Mannitol provided on dialysis
Progress Note - Hemodialysis
-
Date of Service: June 11, 2024
Duration: 45 minutes and 2 hours
Potassium Bath: 3
Calcium Bath: 2.5
Opti-Dialyzer: 160
Ultrafiltration: Other (1-2kg as hemodynamically tolerated)
Blood Flow: 300
Dialysate Flow: 600
Heparin: None
EPO: None
--- NOTE | 2024-06-11 08:22 | W.PN.INTV ---
Today's Communication / Plan
Recommendations
Continue HD (started 06/10); defer UF to nephrology
Trend BUN and sHCO3 levels
Antibiotics from recent hospitalization per ID
PPI IV BID
Trend H&H
Recommend EGD in the next 24-48 hours if patient stable; defer to GI
Monitor serum potassium level
Aspiration precautions
would like to be updated daily if possible
Continue ICU level care for this critically ill patient
Assessment
-
Assessment: 74-year-old male with past medical history of hypertension, asthma, morbid obesity, DM 2, restrictive lung disease, snoring, chronic lower extremity lymphedema who presents with AMS + vomiting blood. Patient recently hospitalized here
from 05/30/2024 due to septic shock likely due to lower extremity cellulitis versus L2-3 discitis. During that hospitalization he was found to have new onset A-fib, and was on a heparin drip at that time and eventually switched to Eliquis. ID
was following at that time for possible L2-3 discitis per L-spine MRI (done on 05/27/2024), and he was to continue a 6-week course of cefepime. This morning of ER arrival, he was having hematemesis at his [facility], unclear how many times. Found
to have a hemoglobin of 5.6 here in the hospital with metabolic acidosis, severe CLIFF with creatinine 5.2, lactate 2.7, with INR 2.43. Blood cultures collected as well as urine cultures. CT head with motion artifact. In the ER he was given
ceftriaxone, Kcentra, NS 0.9% X1 liter, octreotide, and PPI. He was admitted to the ICU for further care and Copyright Manager services consulted for additional management/recommendations.
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
Impression:
#Acute anemia with hematemesis suspicious for upper GI bleed - hematemesis now resolved but still having melena as of 06/11
#Severe CLIFF with mild hyperkalemia now on HD since 06/10/2024
#Metabolic acidosis with increased anion gap due to CLIFF + lactic acidosis
#Toxic�metabolic encephalopathy
#Hyponatremia
#Lactic acidosis � now resolved
#Elevated proBNP
#Coagulopathy s/p Kcentra
#DM type II
#Morbid obesity with BMI: 44.3
#Hx of asthma on Dulera 200mcg BID at home with rescue albuterol - not currently having an exacerbation
#hx of restrictive lung disease with post-bronchodilator FVC of 1.1L / 30% predicted via spirometry from 04/05/2024
Plan:
- Admitted to the ICU with GI, ID and cardiology consults
- Mainly seems that he is having acute encephalopathy from his severe CLIFF as his baseline creatinine is 1.3 to 1.6 and now it is 5.2 as of 06/09/2024
- Patient was started on dialysis on 06/10/2024 s/p IR placed R-IJ HD-catheter
- Bicarbonate drip now discontinued now that he is on HD
- Continue to trend sCr + BUN with strict I/O and monitor UOP
- Trend serum [K] and HCO3 levels
- Assure MAP is >65-70 to help perfuse kidneys
- Trend sNa levels
- CXR from 06/09/2024 is similar to prior CXR from 05/28/2024; also UA does not appear to show infection. ID is resumed antibiotics (cefepime) that he was on from recent hospitalization
- Large bore IV x2
- H&H continues to drop with high BUN, although confounding factor is his severe CLIFF. No emergent need for endoscopy at this time although I do believe he would benefit from EGD
- GI may consider endoscopy tomorrow after additional dialysis with improvement in his uremia, sooner if active bleeding develops
- PPI 40mg IV BID
- NPO
- Trend H/H and transfuse if needed to keep Hb>7g/dL; keep plt>50k
- He was given 3 units PRBC on 06/09/2024, and 1 unit earlier this morning; will transfuse another unit now and check CBC post-transfusion
- Hold anticoagulants + antiplatelets for now until told otherwise by GI
- Maintain SpO2 >90-94%
- Aspiration precautions although his proBNP is elevated at 17,600, he is currently on room air breathing comfortable. CXR on 06/10 does start to show signs of pulmonary edema --> defer volume removal to nephrology now that he is on HD. Would be
careful to remove too much fluid given his suspected GI bleed
- Of note, proBNP was 10,600 on recent labs from 05/20/2024. Continue to closely monitor and start diuresis if he starts to become hypoxic
- Maintain MAP>65
- Replete electrolytes with K>4, Mg>2
- Maintain euglycemia with goal BG 140-180
- prn nebulized bronchodilators - not currently bronchospastic
- Eventual PT/OT
- Early nutrition once able to eat per GI and not confused with risk for aspiration
- DVT ppx: SCDs for now
- High risk situations to low risk to intubate
Dr. Berrios updated the patient's , Sanam, and answered all of her questions on 06/11/2024.
Continue ICU level care for this critically ill patient.
Critical care statement: A total of 42 minutes of critical care time was provided for this patient today. This includes management of unstable vital signs, evaluation of the patient at bedside, reviewing the patient's pertinent medical records
including radiographs, microbiology, laboratory evaluations, and discussion with primary team, consultants, pharmacy, nutrition, physical therapy, case management, charge nurse, critical care nursing, and respiratory therapy.
Subjective Dataa
Subjective Data
Date of Service:
Date of Service: June 11, 2024
Chief Complaint: Copyright Manager Follow Up
Subjective:
Patient was seen and evaluated this morning. Started on HD yesterday. Still confused, moaning at times especially when nurses do routine care on him. Hb is low this morning at 6.9 although it has been low since admission despite multiple blood
transfusions. He was transfused 1 unit PRBC this morning and will be getting another 1 now. No clinical signs of bleeding. HR 96, BP 145/90 and saturating 98% on 4 L/min. He had black/tarry stool this morning.
Review of Systems
General: Other (Unobtainable due to altered mental status)
Objective Data
Data Reviewed
Vital Signs / I&O / Oxygen:
Vital Signs
Temp Pulse Resp BP Pulse Ox
96.7 F L 108 25 135/95 92
06/11/24 08:34 06/11/24 09:45 06/11/24 09:45 06/11/24 09:45 06/11/24 09:45
Intake and Output
06/10/24 06/11/24 06/12/24
06:59 06:59 06:59
Intake Total 3525 / 3725 600 / 600
Output Total 285 / 290 130 / 140 50 / 50
Balance 3240 / 3435 470 / 460 -50 / -50
SaO2 92
Nasal Cannula flow liters per 2
minute
Physical Exam
General: Respiratory Distress (negative), Chills (negative), Sweats (negative) and Other (Elderly man, appears uncomfortable, moaning, confused)
HEENT: Normocephalic and Anicteric
Cardiovascular: Irregular Rhythm (Irregularly irregular), Rub (negative) and Peripheral Edema (+2 lower extremity edema bilaterally)
Respiratory: Wheeze (negative), Crackles (Bilateral), Rhonchi (negative) and Accessory Resp Muscle Use (Mild accessory muscle use seen)
GI: Soft, Distended (Abdominal obesity), Non Tender and Normal Bowel Sounds
Neurology: Tremors (negative) and Lethargic
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
Labs/Micro/Reports
Lab Data
06/11/24 03:21
06/11/24 03:21
Microbiology
06/09/24 16:25 Nose MRSA Screen - Final
No Methicillin Resistant Staphylococcus aureus isolated.
06/09/24 11:10 Blood/Venous Blood Culture - Preliminary
No Growth in 24 hours- Final report to follow
06/09/24 10:48 Blood/Venous Blood Culture - Preliminary
No Growth in 24 hours- Final report to follow
06/09/24 11:10 Urine Urine Culture - Final
NO GROWTH
--- NOTE | 2024-06-11 08:43 | PTCARENOTE ---
Issues w/ scanning labels on unit of PRBC's in [facility]. Blood bank made aware. [place] sheet provided. Unit of blood to be infused w/ HD this am.
[2024-06-11] MEDS: HEPARIN 2200 UNITS INTRACATH (10:41)
--- NOTE | 2024-06-11 11:21 | W.PN.CARDCBS ---
Today's Communication / Plan
-
A-fib ventricular rates are modestly elevated. Start Lopressor 5 mg IV Q6.
Continue volume removal with hemodialysis. It remains unclear whether his kidney function will recover
Hemoglobin improved and overall stable at 6.9. Continue to transfuse as needed.
Long-term prognosis is very poor.
Remain off all anticoagulation for now
Impression / Plan
-
.
Federal Law Clerk: None, initially seen by Dr Vargas
Impression:
Presentation with altered mental status
TME
Hematemesis
Hemorrhagic shock with acute on chronic anemia, suspected GI bleeding
ARF
Hyperkalemia
Metabolic acidosis
Admission to 05/20-05/30/24 for sepsis, B/L cellulitis, ARF
Atrial fibrillation, diagnosed 05/2024
Hyponatremia
Morbid obesity
Suspected COLT
Type 2 diabetes mellitus
Hyperlipidemia
Hypertension
Lymphedema
B/L LE wounds
Alcohol use disorder
Poor self care
Proximal right thigh mass
ECHO 05/20/24: EF 65-70%, mod cLVH, mild RV enlargement, biatrial dilation, mild MR, trace TR, PAP 41mmHg, IV dilated, does not collapse, prominent anterior fat pad present, trivial pericardial effusion noted
Plan:
-Afib rates are modestly elevated. Agree with starting Lopressor IV q6
-Echo 05/20/24 with preserved EF, RV is dilated
-now in hemodialysis. BUN is down to 119 and creatinine are 4.2. It remains unclear whether he will recover. He is making some urine. I suspect he will need long-term hemodialysis.
-Mental status is worsened. Head CT on admission was overall unremarkable with motion artifact
-Cont Cefepime for cellulitis.
-Hg up to 6.9. Cont PPI. Continue to follow. Remain off all anticoagulation
-d/w nursing
Progress Note - Federal Law Clerk
Subjective
Date of Service: June 11, 2024
less alert. has diffuse pains. Had HD today
Objective
Labs:
06/11/24 03:21
Labs
Hgb 6.9 g/dL (13.0-18.0) L* 06/11/24 03:21
Hct 20.3 % (39.0-52.0) L* 06/11/24 03:21
Plt Count 200 10^3/uL (130-400) 06/11/24 03:21
PT 21.4 Sec (11.4-14.6) H 06/10/24 03:18
INR 1.84 06/10/24 03:18
APTT 35.5 Sec (23.4-35.0) H 06/10/24 03:18
Sodium 136 mmol/L (135-145) 06/11/24 03:21
Potassium 4.4 mmol/L (3.5-5.1) 06/11/24 03:21
BUN 119 mg/dl (9-20) H* 06/11/24 03:21
Creatinine 4.2 mg/dL (0.7-1.3) H* 06/11/24 03:21
Glucose 115 mg/dl (70-99) H 06/11/24 03:21
Troponins
06/09/24
12:48
Troponin I 0.015
Vital Signs and I&O:
Vital Signs
Temp Pulse Resp BP Pulse Ox
97.4 F 108 25 135/95 92
06/11/24 11:05 06/11/24 09:45 06/11/24 09:45 06/11/24 09:45 06/11/24 09:45
Vital Signs
Temp Pulse Resp BP Pulse Ox
97.4 F 108 25 135/95 92
06/11/24 11:05 06/11/24 09:45 06/11/24 09:45 06/11/24 09:45 06/11/24 09:45
Intake & Output
06/09/24 06/10/24 06/11/24 06/12/24
06:59 06:59 06:59 06:59
Intake Total 3525 / 3725 600 / 600
Output Total 285 / 290 130 / 140 80 / 80
Balance 3240 / 3435 470 / 460 -80 / -80
Physical Exam
Physical Exam
GEN: No distress, awake, groggy
HEENT: supple, anicteric, mmm
LUNGS: scatt rhonchi
CV: Irreg, S1/S2, 1/6 syst LSB, no gallop
ABD: soft, BS+, NT/ND
EXT: No edema
NEURO: Gross non-focal
SKIN: No rash
[2024-06-11 11:37] LABS: Glucose - Point of Care 101 mg/dl (70-99)
--- NOTE | 2024-06-11 12:15 | PTCARENOTE ---
Pt appears uncomfortable...yells out....increased WOB. Remains on 2L N/C...sats 96%. Lungs diminished w/ scattered I/E wheezing throughout. aware....ABG ordered and sent by RPT.
[2024-06-11 12:31] LABS: B.E. 0 mmol/L; HCO3 24.8 mmol/L (21-28); O2 Saturation % 97.7 % (94-98); PCO2 40 mmHg (35-48); PO2 74 mmHg (83-108)
[2024-06-11] MEDS: LOPRESSOR 5 MG IV ×3 (12:40→23:16)
--- NOTE | 2024-06-11 12:40 | PTCARENOTE ---
made aware of ABG results. Will continue to monitor closely.
[2024-06-11] MEDS: MORPHINE SULFATE 2 MG IV (13:32)
--- NOTE | 2024-06-11 13:40 | PTCARENOTE ---
One time dose of morphine provided per MD order. Will monitor pre and post pain.
[2024-06-11] MEDS: MAXIPIME 1000 MG IV (14:36)
[2024-06-11] MEDS: STERILE WATER FOR INJECTION 10 ML IV (14:36)
[2024-06-11 14:53] LABS: Hematocrit 23.4 % (39.0-52.0); Hemoglobin 8.1 g/dL (13.0-18.0); Mean Corp Hgb Conc. 34.6 g/dL (33.0-37.0); Mean Corpuscular Hgb 28.8 pg (27.0-31.0); Mean Corpuscular Volume 83.3 fL (80.0-94.0); Mean Platelet Volume 9.7 fL (7.4-10.4); Platelet Count 159 10^3/uL (130-400); Red Blood Cell Count 2.81 10^6/uL (4.70-6.10); Red Cell Dist. Width 16.7 % (11.5-14.5); White Blood Cell Count 5.2 10^3/uL (4.8-10.8)
--- NOTE | 2024-06-11 15:05 | PTCARENOTE ---
at bedside to fully update pt's and answer all questions.
--- NOTE | 2024-06-11 16:00 | PTCARENOTE ---
Pt resting comfortably at present w/ at bedside. Remains on 2L N/C...sats 96%. Lungs diminished...soft I/E wheezing noted. Scant urine output. HD @ noon tmr. Safe environment confirmed. Will continue to monitor.
[2024-06-11 17:59] LABS: Glucose - Point of Care 111 mg/dl (70-99)
--- NOTE | 2024-06-11 20:00 | PTCARENOTE ---
Rec'd pt w/ eyes open, andrea at 2mm, able to state his name when asked, does not answer any other questions or follow commands, extremities weak, Afib, w/ occas pvc, + 4 LE edema, ernie wraps intact, skin warm/ dry, o2 2 liters nc, lungs decr, sat 100,
+ bowel sounds, no bm, abd obese, npo, thermister echevarria draining scant amt cloudy tea color urine w/ sediment
[2024-06-11 20:32] LABS: Hemoglobin 8.3 g/dL (13.0-18.0)
[2024-06-11] MEDS: APRESOLINE 10 MG IV (22:31)
--- NOTE | 2024-06-11 22:33 | PTCARENOTE ---
apresoline 10mg iv goven for elevated bp
[2024-06-11 23:27] LABS: Glucose - Point of Care 106 mg/dl (70-99)
[2024-06-12] VITALS (34 sets, daily range): BP systolic 100–171; BP diastolic 35–106; BMI 44.6
[2024-06-12] MEDS: DILAUDID 0.5 MG IV ×4 (00:20→17:37)
--- NOTE | 2024-06-12 00:20 | PTCARENOTE ---
sys reviewed, changes noted, dilaudid 0.5 mg iv given for pain, pt moans w/ turning, CHG bath done, linens changed, few exp wheezes after turning, decr throughout, o2 incr to 4 liters nc for sat 91
[2024-06-12 03:34] LABS: Hematocrit 24.9 % (39.0-52.0); Hemoglobin 8.3 g/dL (13.0-18.0); Mean Corp Hgb Conc. 33.3 g/dL (33.0-37.0); Mean Corpuscular Hgb 28.5 pg (27.0-31.0); Mean Corpuscular Volume 85.6 fL (80.0-94.0); Mean Platelet Volume 10.3 fL (7.4-10.4); Platelet Count 162 10^3/uL (130-400); Red Blood Cell Count 2.91 10^6/uL (4.70-6.10); Red Cell Dist. Width 16.9 % (11.5-14.5); White Blood Cell Count 4.8 10^3/uL (4.8-10.8)
[2024-06-12 03:58] LABS: Blood Urea Nitrogen 89 mg/dl (9-20); Calcium 8.2 mg/dl (8.4-10.2); Carbon Dioxide 23 mmol/L (22-30); Chloride 99 mmol/L (98-107); Estimated Creatinine Clearance 24 ml/min; Glucose 113 mg/dl (70-99); Magnesium 1.9 mg/dl (1.6-2.3); Phosphorus 5.3 mg/dl (2.5-4.5); Potassium 4.2 mmol/L (3.5-5.1); Sodium 137 mmol/L (135-145); eGFR 16.77
[2024-06-12 04:07] LABS: NT-proBNP > 27000 pg/ml
--- NOTE | 2024-06-12 04:08 | PTCARENOTE ---
sys reviewed, expiratory wheezes with turning, yelling out when no one is in the room, SHIRLEY at 2mm
[2024-06-12 04:30] LABS: B.E. -2.6 mmol/L; HCO3 22.6 mmol/L (21-28); O2 Saturation % 99.3 % (94-98); PCO2 40 mmHg (35-48); PO2 99 mmHg (83-108); pH 7.36 (7.35-7.45)
--- NOTE | 2024-06-12 05:10 | W.PN.GI.CBS2 ---
Today's Communication / Plan
-
Please see assessment and plan for details.
Assessment / Plan
-
1. GI bleed: With coffee-ground emesis and initial melena, in the setting of anticoagulation and uremia with acute renal failure, now status post DDAVP, Kcentra, no further significant gross bleeding. Likely stasis/atony from acute renal
failure/uremia with gastritis and esophagitis, less likely peptic ulcer disease. At this point he has no further significant gross bleeding, though still has anuric failure with uremia which is slowly improving, status post dialysis x 2. Will
continue supportive care for today, PPI, observation, for probable repeat dialysis. While he does have some mild tenderness on exam he has diffuse tenderness, and is overall soft, x-ray without obstruction. Hemoglobin remained stable. Plan EGD
when suitable, still confused and tachypneic today, sooner if signs of brisk active bleeding.
Subjective
Subjective
Date of Service: June 12, 2024
No new events overnight. Had 1 small dark bowel movement yesterday, small smear overnight. X-ray noted, some fecal residue though no obstruction. Patient's mental status still not much improved, despite dialysis 2 days in a row, improvement in
BUN. This morning still not answering questions, appears mildly tachypneic.
Objective
Data Reviewed
Laboratory Data:
Laboratory Results
06/12/24 03:15
06/12/24 03:15
Laboratory Results
PT 21.4 Sec (11.4-14.6) H 06/10/24 03:18
INR 1.84 06/10/24 03:18
APTT 35.5 Sec (23.4-35.0) H 06/10/24 03:18
Phosphorus 5.3 mg/dl (2.5-4.5) H 06/12/24 03:15
Magnesium 1.9 mg/dl (1.6-2.3) 06/12/24 03:15
Total Bilirubin 0.8 mg/dl (0.2-1.3) 06/10/24 03:18
AST 18 U/L (17-59) 06/10/24 03:18
ALT 19 U/L (0-50) 06/10/24 03:18
Alkaline Phosphatase 88 U/L (38-126) 06/10/24 03:18
Vital Signs and I&O:
Vital Signs
Temp Pulse Resp BP Pulse Ox
98.4 F 99 20 146/87 97
06/12/24 03:44 06/12/24 04:00 06/12/24 04:00 06/12/24 04:00 06/12/24 04:00
I&O
06/10/24 06/11/24 06/12/24
06:59 06:59 06:59
Intake Total 3525 / 3725 600 / 600
Output Total 285 / 290 130 / 140 165 / 165
Balance 3240 / 3435 470 / 460 -165 / -165
Physical Exam
Physical Exam
General: NAD
Abdomen: normal bowel sounds, soft, mild diffuse tenderness, no masses or bruits, no ascites
[2024-06-12] MEDS: LOPRESSOR 5 MG IV ×3 (05:18→23:42)
[2024-06-12 05:28] LABS: Glucose - Point of Care 115 mg/dl (70-99)
[2024-06-12] MEDS: APRESOLINE 10 MG IV (06:06)
--- NOTE | 2024-06-12 06:06 | PTCARENOTE ---
apresoline 10mg iv given for bp, echevarria dc'd per order
--- NOTE | 2024-06-12 06:26 | W.PN.HOSP.TC ---
Today's Communication/Plan
-
Will d/w GI about the plan in regard AC use, Aspirin need, nutrition
c/w IV BB, f/w cardiology recommendations for A fib control
IV Abx
Aspiration precautions.
Assessment / Plan
Assessment / Plan
Physical Exam
General: chronically ill looking
HEENT: Normocephalic
Respiratory: limited, no wheezes
Cardiac: S1/S2
GI: Soft, not distended, unable to respond if tenderness or not
Musculoskeletal: 2+ edema in bilateral lower extremities
Skin: Warm. Dry.
Neuro: Awake, but disoriented, unable to follow commands ( Status unchanged per staff)
Psych: Confused
Assessment/Plan
74 years old male presented with altered mentation and was found to have signs of shock with recent GI bleeding/hematemesis
#Hemorrhagic shock secondary to GI bleeding/hematemesis, likely upper GI bleeding from history
#Coagulopathy s/p Kcentra
Toxic metabolic encephalopathy
Remains confused and unable to answer questions or follow commands
Abdominal x ray showed moderate fecal material in the colon. No free air.
Maintain peripheral large bore IV access/ both sides
Patient received a total of 5 units of PRBCs so far
Continue IV Protonix 40 mg BID
NPO
Received reversal agents in ER
Will d/w GI about plan moving forward.
Follow-up with GI and ICU doctors recommendations
Held anticoagulants (hold home Eliquis) and antiplatelets for now until told otherwise by GI
# TME
CT head on admission: no evidence for acute intracranial abnormality.
Eventual brain images as MRI if no improvement.
#Recent septic shock and treatment for bilateral lower extremity cellulitis, on IV cefepime.
#Possible L2/L3 discitis on 05/27/24 MRI, present on admission
Continue empiric cefepime x 6 weeks through 07/06/24
Chest x-ray to visualize chest and right PICC line. No signs of erythema/swelling around PICC line
Consulted ID, appreciate input
#Severe acute kidney injury(likely prerenal)/hyperkalemia/anion gap metabolic acidosis (due to lactic acidosis and CLIFF)
#Azotemia suspected due to upper GI bleed and acute kidney injury
Held diuretics, metformin, blood pressure medication
Patient seems to have chronic kidney disease stage IIIb from previous records
Baseline creatinine is 1.3 to 1.6
Despite IV fluids and red blood cell transfusion, renal function hasn't really improved -- so dialysis started 06/10
Abraham catheter for input and output monitor
Patient received IV sodium bicarbonate for acidosis, now getting dialysis (see below)
Close monitoring of renal function/potassium
Consulted nephrology, appreciate input -
# Significant history of medical non compliance, per records. But luckily patient was sent to [facility] this time,
per history from previous admission, patient was not following with his family physician, stopped seeing lymphedema clinic, and was drinking alcohol daily Vodka before falling acutely ill this May. And Also he seemed to live alone, was using one
story of house by himself most of the week.
#Lactic Acidosis - RESOLVED
# Toxic metabolic encephalopathy secondary to shock and CLIFF
Patient has altered mentation, answers simple questions but generally obtunded and weak
No history of seizure. No history of headaches. Afebrile. No history of falls/head trauma
Ammonia level normal
Blood gas with pH 7.13 on 06/09/24
CT head with no contrast: No acute finding
Continue with empiric antibiotics as above
Follow-up with urine and blood cultures --> no growth so far
#Recent new onset paroxysmal atrial fibrillation
BP improved, will do low dose IV metoprolol
EKG consistent with atrial fibrillation.
Holding Eliquis and reversal with prothrombin complex concentrate due to GI bleeding, also holding aspirin per cardiology.
Held Atenolol in setting of hypotension
Recent echo showed LVEF 65 to 70%, trace TR, biatrial dilatation, mild MR.
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
Cardiology consultation recommendations appreciated
# Hyponatremia
# Pain in back
seems chronic
Low dose IV Dilaudid as needed.
#Type 2 Diabetes Mellitus
Hold metformin
Add insulin sliding scale
#History of primary hypertension. Improved BP, Resuming BB
#Recent hospitalization with incidental finding of proximal R thigh mass: 6.1 x 3.3 x 4.3cm solid lesion with internal vascularity in the proximal right thigh with differential including suspicious lymph node or soft tissue neoplasm. Patient and
were aware of it.
#Elevated proBNP
-proBNP 35557
-Volume removal via dialysis per nephrology
#Morbid Obesity
#History of stage II pressure coccygeal area injury
# Chronic history of bilateral lower extremity lymphedema
# History of alcohol use. No history of recent alcohol intake
#History of asthma on Dulera 200mcg BID at home with rescue albuterol - not currently having an exacerbation
#History of restrictive lung disease with post-bronchodilator FVC of 1.1L / 30% predicted via spirometry from 04/05/2024
# Significant BLE lymphedema
-Continue wound care and compression
Code Status: Full Code
DVT Prophylaxis: SCDs (mud logger agreed that patient can get SCDs)
Total time spent to see the patient, examine the patient, review data and lab result, discussed treatment plan with family/patient, consultants,nursing staff around 57minutes
Anticipated Discharge: > 48 hours
Subjective/Interval History
-
Date of Service: June 12, 2024
Still confused
No fevers
Objective Data
-
Labs:
Laboratory Results
06/11/24 06/12/24 06/12/24
20:23 03:15 03:15
WBC 4.8
Hgb 8.3 L 8.3 L
Hct 24.9 L
Plt Count 162
HCO3
Sodium 137 Cancelled
Potassium 4.2
Chloride
Carbon Dioxide
BUN
Creatinine
Glucose
Calcium
06/12/24 06/12/24 06/12/24
03:15 03:15 03:15
WBC
Hgb
Hct
Plt Count
HCO3
Sodium
Potassium Cancelled
Chloride 99 Cancelled
Carbon Dioxide 23 Cancelled
BUN 89 H
Creatinine
Glucose
Calcium
06/12/24 06/12/24 06/12/24
03:15 03:15 03:15
WBC
Hgb
Hct
Plt Count
HCO3
Sodium
Potassium
Chloride
Carbon Dioxide
BUN Cancelled
Creatinine 3.6 H Cancelled
Glucose 113 H Cancelled
Calcium 8.2 L
06/12/24 06/12/24
03:15 04:14
WBC
Hgb
Hct
Plt Count
HCO3 22.6
Sodium
Potassium
Chloride
Carbon Dioxide
BUN
Creatinine
Glucose
Calcium Cancelled
Vital Signs:
Vital Signs
Temp Pulse Resp BP Pulse Ox
98.4 F 102 14 161/89 98
06/12/24 03:44 06/12/24 06:06 06/12/24 06:00 06/12/24 06:06 06/12/24 06:00
I&O
06/10/24 06/11/24 06/12/24
06:59 06:59 06:59
Intake Total 3525 / 3725 600 / 600
Output Total 285 / 290 130 / 140 165 / 165
Balance 3240 / 3435 470 / 460 -165 / -165
--- NOTE | 2024-06-12 07:13 | W.PN.PUL3 ---
Addendum entered and electronically signed by Shravan Oliver MD 06/12/24 14:27:
Patient transferred out of ICU.
We will sign off. Please call with questions
Original Note:
Today's Communication / Plan
-
Mental status is slowly improving
HD today
Antibiotics continue per infectious disease
Check TSH
Mechanical DVT prophylaxis
Aspiration precautions, maintain n.p.o. for now
Eventual speech and swallow evaluation
Assessment
-
Assessment: 74-year-old male with past medical history of hypertension, asthma, morbid obesity, DM 2, restrictive lung disease, snoring, chronic lower extremity lymphedema who presents with AMS + vomiting blood. Patient recently hospitalized here
from 05/30/2024 due to septic shock likely due to lower extremity cellulitis versus L2-3 discitis. During that hospitalization he was found to have new onset A-fib, and was on a heparin drip at that time and eventually switched to Eliquis. ID
was following at that time for possible L2-3 discitis per L-spine MRI (done on 05/27/2024), and he was to continue a 6-week course of cefepime. This morning of ER arrival, he was having hematemesis at his group home, unclear how many times. Found
to have a hemoglobin of 5.6 here in the hospital with metabolic acidosis, severe CLIFF with creatinine 5.2, lactate 2.7, with INR 2.43. Blood cultures collected as well as urine cultures. CT head with motion artifact. In the ER he was given
ceftriaxone, Kcentra, NS 0.9% X1 liter, octreotide, and PPI. He was admitted to the ICU for further care and Enrolled Agent services consulted for additional management/recommendations.
Chronic conditions BUTTERMAKER: Hypertension, history of asthma, morbid obesity, DM type II, restrictive lung disease, snoring with suspected COLT, A-fib on Eliquis, history of alcohol use
Impression:
#Acute anemia with hematemesis suspicious for upper GI bleed - hematemesis now resolved but still having melena as of 06/11
#Severe CLIFF with mild hyperkalemia now on HD since 06/10/2024
#Metabolic acidosis with increased anion gap due to CLIFF + lactic acidosis
#Toxic�metabolic encephalopathy
#Hyponatremia
#Lactic acidosis � now resolved
#Elevated proBNP
#Coagulopathy s/p Kcentra
#DM type II
#Morbid obesity with BMI: 44.3
#Hx of asthma on Dulera 200mcg BID at home with rescue albuterol - not currently having an exacerbation
#hx of restrictive lung disease with post-bronchodilator FVC of 1.1L / 30% predicted via spirometry from 04/05/2024
Plan:
- Admitted to the ICU with GI, ID and cardiology consults
- Mainly seems that he is having acute encephalopathy from his severe CLIFF as his baseline creatinine is 1.3 to 1.6 and now it is 5.2 as of 06/09/2024, decreased to 3.6
- Patient was started on dialysis on 06/10/2024 s/p IR placed R-IJ HD-catheter
- Nephrology following. HD today
- CXR from 06/09/2024 is similar to prior CXR from 05/28/2024; also UA does not appear to show infection. ID is resumed antibiotics (cefepime) that he was on from recent hospitalization
-Hemoglobin 8.3, remains stable
Remains n.p.o., remains on Protonix twice daily
GI following
Patient has received 4 units of blood
Possible endoscopy when stable
- Maintain SpO2 >90-94%
- Aspiration precautions although his proBNP is elevated at 17,600, he is currently on room air breathing comfortable. CXR on 06/10 does start to show signs of pulmonary edema --> defer volume removal to nephrology now that he is on HD. Would be
careful to remove too much fluid given his suspected GI bleed
- Of note, proBNP was 10,600 on recent labs from 05/20/2024. Continue to closely monitor and start diuresis if he starts to become hypoxic
Atrial fibrillation noted, on IV beta-nel
Echo 05/20/2024 with normal LV, dilated RV, PA pressure 41
Mental status is suboptimal. Likely secondary to uremia
ABG this morning 7.36//. Ammonia level normal 06/09
There is an alcohol history, will try to obtain additional history from
Check TSH
Remains on antibiotics, cefepime. Plan is for 6 weeks through 07/06 per ID
CRP in a.m.
History of discitis in the past. Wound care
- DVT ppx: SCDs for now. Remains off pharmacological prophylaxis due to GI bleed
- High risk situations to low risk to intubate
Remains n.p.o., aspiration risk noted
Eventual speech evaluation
Updated at length by phone 06/12. All questions answered
Continue ICU level care for this critically ill patient.
Critical care statement: A total of 31 minutes of critical care time was provided for this patient today. This includes management of unstable vital signs, evaluation of the patient at bedside, reviewing the patient's pertinent medical records
including radiographs, microbiology, laboratory evaluations, and discussion with primary team, consultants, pharmacy, nutrition, physical therapy, case management, charge nurse, critical care nursing, and respiratory therapy.
Subjective Data
-
Date of Service:
Date of Service: June 12, 2024
Subjective:
Patient remains critically ill. Complaining of pain, received Dilaudid. Hemoglobin 8.3. Plans for hemodialysis today. Remains on 4 L, mental status suboptimal, does follow commands and knows he is in [facility] but does not answer
consistently
Objective Data
Data Reviewed
Vital Signs / I&O / Oxygen:
Vital Signs
Temp Pulse Resp BP Pulse Ox
98.4 F 102 14 161/89 98
06/12/24 03:44 06/12/24 06:06 06/12/24 06:00 06/12/24 06:06 06/12/24 06:00
Intake and Output
06/11/24 06/12/24 06/13/24
06:59 06:59 06:59
Intake Total 600 / 600
Output Total 130 / 140 165 / 165
Balance 470 / 460 -165 / -165
SaO2 98
Nasal Cannula flow liters per 4
minute
Physical Exam
General: Comfortable, Other (Large neck) and Other (Right IJ HD catheter)
HEENT: Normocephalic and Anicteric
Cardiovascular: S1-S2, Regular Rhythm, Murmur (n), Rub (n) and Peripheral Edema (2+ edema, chronic venous stasis changes, lower extremity bandages in place)
Respiratory: Wheeze (n), Crackles (n), Rhonchi (few) and Non-Labored Respirations
GI: Soft, Distended (Nontender), Non Tender and Other
Neurology: Awake (Does not add sugar concerns consistently, does not move extremities, generally weak)
Skin: Cyanosis (n), Jaundice (n) and Rash (n)
Labs/Micro/Reports
Lab Data
06/12/24 03:15
06/12/24 03:15
Laboratory Results
06/11/24 06/11/24 06/12/24
12:15 12:25 04:14
pH Cancelled 7.40 7.36
pCO2 Cancelled 40 40
pO2 Cancelled 74 L 99
HCO3 Cancelled 24.8 22.6
O2 Delivery Level Cancelled
Microbiology
06/09/24 11:10 Blood/Venous Blood Culture - Preliminary
No Growth in 48 hours- Final report to follow
06/09/24 10:48 Blood/Venous Blood Culture - Preliminary
No Growth in 48 hours- Final report to follow
06/09/24 16:25 Nose MRSA Screen - Final
No Methicillin Resistant Staphylococcus aureus isolated.
06/09/24 11:10 Urine Urine Culture - Final
NO GROWTH
[2024-06-12] MEDS: NSS (PRESERVATIVE FREE) 10 ML IV ×2 (08:26→19:50)
[2024-06-12] MEDS: PROTONIX IV 40 MG IV ×2 (08:26→19:50)
[2024-06-12] MEDS: DESENEX/MITRAZOL/ZEASORB 1 APPLIC TOPICAL ×2 (08:26→19:56)
[2024-06-12] MEDS: HYDROPHOR 1 APPLIC TOPICAL (08:27)
--- NOTE | 2024-06-12 10:32 | W.PN.CARDCBS ---
Today's Communication / Plan
-
Afib rates are stable, continue with Lopressor IV q6
Echo 05/20/24 with preserved EF, RV is dilated
He remains on hemodialysis. BUN is down to 89 and creatinine are 3.6 June 12.
Nephrology following, remains unclear whether he will recover. He may require long-term hemodialysis.
Remains confused
Head CT on admission was overall unremarkable with motion artifact
Supportive care and workup as per primary service
Cont Cefepime for cellulitis.
Hemoglobin up to 8.3 on June 12.
Cont PPI.
Remain off all anticoagulation
Impression / Plan
-
.
Critical Power Install Technician: None, initially seen by Dr Vargas
Impression:
Presentation with altered mental status
TME
Hematemesis
Hemorrhagic shock with acute on chronic anemia, suspected GI bleeding
ARF
Hyperkalemia
Metabolic acidosis
Admission to 05/20-05/30/24 for sepsis, B/L cellulitis, ARF
Atrial fibrillation, diagnosed 05/2024
Hyponatremia
Morbid obesity
Suspected COLT
Type 2 diabetes mellitus
Hyperlipidemia
Hypertension
Lymphedema
B/L LE wounds
Alcohol use disorder
Poor self care
Proximal right thigh mass
ECHO 05/20/24: EF 65-70%, mod cLVH, mild RV enlargement, biatrial dilation, mild MR, trace TR, PAP 41mmHg, IV dilated, does not collapse, prominent anterior fat pad present, trivial pericardial effusion noted
Plan:
Afib rates are stable, continue with Lopressor IV q6
Echo 05/20/24 with preserved EF, RV is dilated
He remains on hemodialysis. BUN is down to 89 and creatinine are 3.6 June 12.
Nephrology following, remains unclear whether he will recover. He may require long-term hemodialysis.
Remains confused
Head CT on admission was overall unremarkable with motion artifact
Supportive care and workup as per primary service
Cont Cefepime for cellulitis.
Hemoglobin up to 8.3 on June 12.
Cont PPI.
Remain off all anticoagulation
Progress Note - Critical Power Install Technician
Subjective
Date of Service: June 12, 2024
Patient seen and examined. No chest pain, remains confused
Objective
Labs:
06/12/24 03:15
06/12/24 03:15
Labs
Hgb 8.3 g/dL (13.0-18.0) L 06/12/24 03:15
Hct 24.9 % (39.0-52.0) L 06/12/24 03:15
Plt Count 162 10^3/uL (130-400) 06/12/24 03:15
PT 21.4 Sec (11.4-14.6) H 06/10/24 03:18
INR 1.84 06/10/24 03:18
APTT 35.5 Sec (23.4-35.0) H 06/10/24 03:18
Sodium 137 mmol/L (135-145) 06/12/24 03:15
Sodium Cancelled 06/12/24 03:15
Potassium 4.2 mmol/L (3.5-5.1) 06/12/24 03:15
Potassium Cancelled 06/12/24 03:15
BUN 89 mg/dl (9-20) H 06/12/24 03:15
BUN Cancelled 06/12/24 03:15
Creatinine 3.6 mg/dL (0.7-1.3) H 06/12/24 03:15
Creatinine Cancelled 06/12/24 03:15
Glucose 113 mg/dl (70-99) H 06/12/24 03:15
Glucose Cancelled 06/12/24 03:15
Troponins
06/09/24
12:48
Troponin I 0.015
Vital Signs and I&O:
Vital Signs
Temp Pulse Resp BP Pulse Ox
98.8 F 102 19 158/89 98
06/12/24 10:17 06/12/24 10:17 06/12/24 10:17 06/12/24 10:17 06/12/24 10:17
Vital Signs
Temp Pulse Resp BP Pulse Ox
98.8 F 102 19 158/89 98
06/12/24 10:17 06/12/24 10:17 06/12/24 10:17 06/12/24 10:17 06/12/24 10:17
Intake & Output
06/10/24 06/11/24 06/12/24 06/13/24
06:59 06:59 06:59 06:59
Intake Total 3525 / 3725 600 / 600
Output Total 285 / 290 130 / 140 165 / 165
Balance 3240 / 3435 470 / 460 -165 / -165
Physical Exam
Physical Exam
General: No acute distress, confused
Neck: Negative JVD
Heart: Irregular irregular,, Negative S3 positive S1/S2, Negative S4, No murmur
Lungs: CTA b/l, negative wheezes/rales/rhonchi
Abd: Positive BS, NT/ND, neg rebound/rigidity/guarding
Ext: Negative cyanosis/clubbing +2 bilateral edema
Neuro: nonfocal
Skin: Venous stasis skin changes
--- NOTE | 2024-06-12 10:46 | PTCARENOTE ---
Updated assessment, vital signs ongoing and as documented. Continue follow up skin cares, wound cares and oral cares as per unit based protocols. Continue with bedside updates with family(). [employer] Manager, GI, nephrology at bedside with for
updated plan of cares. Hospitalist round this am. Presently wishes to hold on scope and feeding tube and follow patient improvement. Has had similar episodes in past. Continue supportive cares, teaching, and follow up patient/family care needs.
Plan for HD at 1200 today. Continue ongoing patient safety rounds and skin care checks.
--- NOTE | 2024-06-12 10:51 | W.PN.NEPH.PH ---
Today's Communication / Plan
-
HD today
Assessment/Plan
-
Impression:
Encephalopathy
Anemia with hematemesis on chronic oral anticoagulation (5.6)
History of recently diagnosed atrial fibrillation on Eliquis
Acute renal failure
Hyperkalemia
Metabolic acidosis (gapped and non gapped)
History of bilateral cellulitis and discitis on cefepime
History of alcohol use
Chronic lymphedema
Plan:
Acute kidney
-Likely prerenally mediated in setting of hypotension and acute anemia due to GI bleed
-CLIFF without significant improvement despite volume and blood products, HD initiated on 06/10
remains oliguric with echevarria
would cont HD still, no renal recovery seen yet
speech eval , remains NPO
hb stable off AC
d/w and nursing
HD today
-
-
Date of Service: June 12, 2024
CC / HPI / ROS
-
Chief Complaint:
Acute kidney
History of Present Illness:
Acute kidney injury HD x2 so far
Hemodynamically stable
Hemoglobin at 8.3 stable
Review of Systems:
Oliguric
No fevers
Patient mental status -more awake but still lethargic-much better from before per
Labs
-
Labs:
WBC 4.8 10^3/uL (4.8-10.8) 06/12/24 03:15
RBC 2.91 10^6/uL (4.70-6.10) L 06/12/24 03:15
Hgb 8.3 g/dL (13.0-18.0) L 06/12/24 03:15
Hct 24.9 % (39.0-52.0) L 06/12/24 03:15
Plt Count 162 10^3/uL (130-400) 06/12/24 03:15
Sodium 137 mmol/L (135-145) 06/12/24 03:15
Sodium Cancelled 06/12/24 03:15
Potassium 4.2 mmol/L (3.5-5.1) 06/12/24 03:15
Potassium Cancelled 06/12/24 03:15
Chloride 99 mmol/L (98-107) 06/12/24 03:15
Chloride Cancelled 06/12/24 03:15
Carbon Dioxide 23 mmol/L (22-30) 06/12/24 03:15
Carbon Dioxide Cancelled 06/12/24 03:15
BUN 89 mg/dl (9-20) H 06/12/24 03:15
BUN Cancelled 06/12/24 03:15
Creatinine 3.6 mg/dL (0.7-1.3) H 06/12/24 03:15
Creatinine Cancelled 06/12/24 03:15
eGFR 16.77 06/12/24 03:15
eGFR Cancelled 06/12/24 03:15
Glucose 113 mg/dl (70-99) H 06/12/24 03:15
Glucose Cancelled 06/12/24 03:15
Calcium 8.2 mg/dl (8.4-10.2) L 06/12/24 03:15
Calcium Cancelled 06/12/24 03:15
Phosphorus 5.3 mg/dl (2.5-4.5) H 06/12/24 03:15
Pnc-E-Skmxhkyjoqt Pept > 78546 pg/ml 06/12/24 03:15
Albumin 2.7 g/dl (3.5-5.0) L 06/10/24 03:18
Physical Exam
-
Vital Signs:
Vital Signs
Temp Pulse Resp BP Pulse Ox
98.8 F 102 19 158/89 98
06/12/24 10:17 06/12/24 10:17 06/12/24 10:17 06/12/24 10:17 06/12/24 10:17
Cardiovascular:: Regular rate and rhythm
Respiratory:: Bilateral: Coarse (decreased)
Lung Excursion:: Normal
Abdomen:: Nontender and Soft
Bowel Sounds:: Decreased
Extremity Edema:: +2: Bilateral:
Echevarria Catheter: Yes
[2024-06-12] MEDS: LOPRESSOR IV (12:23)
--- NOTE | 2024-06-12 12:23 | W.PN.ID1 ---
Date of Service
Date of Service: June 12, 2024
Today's Communication
Continue cefepime.
Assessment / Plan
# Possible L2/L3 discitis on 05/27/24 MRI, present on admission
- Continue empiric cefepime x 6 weeks through 07/06/24
- Continue cefepime dose 1g IV q24 to qPM.
- Check CRP in am.
# UGIB with blood loss anemia
# s/p Low BP due to blood loss
# CLIFF - started HD 06/10
# Significant BLE lymphedema
- No signs of infection
-Continue wound care and compression
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
Diabetes mellitus
Asthma
Afib on eliquis
Dyslipidemia
Hypertension
Class III obesity BMI 42
Possible L2/L3 discitis on IV cefepime through 07/06/24
Bilateral lower extremity lymphedema - goes to lymphedema PT
Alcohol use disorder
Chief Complaint
-: Other (possible discitis)
Subjective / Review of Systems
at bedside. Mental status improving with dialysis.
Vital Signs / Physical Exam
Vital Signs
Vital Signs
Temp Pulse Resp BP Pulse Ox
98.8 F 102 19 158/89 98
06/12/24 10:17 06/12/24 10:17 06/12/24 10:17 06/12/24 10:17 06/12/24 10:17
Physical Exam
Constitutional: Acutely Ill
Cardiovascular: Irregular Rate and Other (tachycardic)
Pulmonary: Clear
Gastrointestinal: Soft, Non Tender and Non Distended
Extremities: Edema (BLE)
Objective Data
Lab Data
Lab Results
06/12/24 03:15
06/12/24 03:15
PT 21.4 Sec (11.4-14.6) H 06/10/24 03:18
INR 1.84 06/10/24 03:18
APTT 35.5 Sec (23.4-35.0) H 06/10/24 03:18
Estimated Creat Clear 24 ml/min 06/12/24 03:15
Estimated Creat Clear Cancelled 06/12/24 03:15
Lactic Acid 1.5 mmol/L (0.7-2.0) 06/09/24 16:25
Total Bilirubin 0.8 mg/dl (0.2-1.3) 06/10/24 03:18
AST 18 U/L (17-59) 06/10/24 03:18
ALT 19 U/L (0-50) 06/10/24 03:18
Alkaline Phosphatase 88 U/L (38-126) 06/10/24 03:18
Most recent labs reviewed.
Micro Results:
06/09/24 11:10 Blood Culture - Preliminary
Blood/Venous No Growth in 72 hours- Final report to follow
06/09/24 10:48 Blood Culture - Preliminary
Blood/Venous No Growth in 72 hours- Final report to follow
06/09/24 16:25 MRSA Screen - Final
Nose No Methicillin Resistant Staphylococcus aureus isolated.
06/09/24 11:10 Urine Culture - Final
Urine NO GROWTH
06/09/24 CXR: Mild to moderate elevation of the right hemidiaphragm, stable. There is a band of increased density in the left mid to lower lung, horizontal, stable appearance from prior examination, compatible with stable atelectasis and/or scarring.
--- NOTE | 2024-06-12 12:29 | PTCARENOTE ---
Failed speech evaluation. NPO for now. Will continue to follow revaluation. Presently getting started on hemodialysis. Follow vital sign trends. going home at this time will follow up via phone later today.
--- NOTE | 2024-06-12 12:32 | PTOTSP ---
Speech Therapy Evaluation:
Pt's mentation not currently supportive of PO intake. With PO trials of ice chips (x1) and thin liquids via pipetted straw (x2) pt demonstrated absent labial seal, anterior loss, delayed and/or absent oral manipulation, and oral holding. No overt
s/sx of aspiration observed with thin liquid via pipetted straw in 1 trial, however assessment limited given SCIENTIFIC INFORMATICS LEADER suctioned ice chip out of oral cavity and pt demonstrated anterior loss of entire bolus in one trial of thin liquids via pipetted straw.
Per pt's , no hx of dysphagia or PNAs. WBC WNL. No significant predisposing risk factors of dysphagia. CXR with atelectasis at left lung base. Suspect pt's swallow function will improve as mentation improves.
Recommend:
1. Temporary NPO
2. Medications non-oral
3. Oral care 3x/daily
4. SCIENTIFIC INFORMATICS LEADER to follow to assess candidacy for diet initiation
--- NOTE | 2024-06-12 13:45 | W.PN.NEPH.HD ---
Assessment
-
pt seen during HD
vitals stable
UF as tolerates
edema improving
Temp catheter functions well
Progress Note - Hemodialysis
-
Date of Service: June 12, 2024
Duration: 3 hours
Potassium Bath: 3
Calcium Bath: 2.5
Opti-Dialyzer: 160
Ultrafiltration: Other (2kg)
Blood Flow: 350
Dialysate Flow: 600
Heparin: no
EPO: 8000
[2024-06-12] MEDS: RETACRIT 8000 UNITS IV (14:16)
--- NOTE | 2024-06-12 15:15 | PTCARENOTE ---
Patient seen on HD. Assessment with noted improvement and interaction from patient to staff. Continue ongoing vital sign trends while on HD. Follow up plan of cares via phone with . Status to IMU. Continue medications and follow up via [place].
Continue supportive cares and emotional support.
[2024-06-12 15:16] LABS: TSH 5.52 uIU/ml (0.47-4.68)
[2024-06-12 15:42] LABS: Glucose - Point of Care 96 mg/dl (70-99)
--- NOTE | 2024-06-12 15:51 | CM ---
CM following re: discharge planning.
Discussed in rounds, reviewed pt's chart, met with pt during HD treatment. PT HD RN, pt has started HD treatment on Wednesday06/10/24. Per nephrology, no renal recovery seen yet. Will coordinate with nuclear physician to whether or not pt will need
permanent HD treatment.
Per CM note, pt is admitted from [facility] and family does not want pt returns back there.
D/C plan: uncertain at this time and will de[end on pt's progress.
CM will follow with discharge plan updates as hospitalization progresses
[2024-06-12] MEDS: STERILE WATER FOR INJECTION 10 ML IV (16:00)
[2024-06-12] MEDS: MAXIPIME 1000 MG IV (16:00)
--- NOTE | 2024-06-12 20:00 | PTCARENOTE ---
Rec'd pt sleeping, easily arousable, able to tell me his name & birthday, disoriented to place, moans at times, at bedside, does not follow commands, afib, bp stable, distal pulses via doppler, + edema, O2 4 liters nc, lungs dec, scat exp
wheezes w/ exertion, sat 95, hypo bowel sounds, npo, abd obese, no n/v, oliguric
--- NOTE | 2024-06-12 21:32 | PTCARENOTE ---
vs filed from 1230 to 1900 by this RN, unable to verify validity
[2024-06-12 23:58] LABS: Glucose - Point of Care 104 mg/dl (70-99)
[2024-06-13] VITALS (21 sets, daily range): BP systolic 103–135; BP diastolic 59–114; BMI 43.7
[2024-06-13] MEDS: DILAUDID 0.5 MG IV ×7 (00:13→23:35)
--- NOTE | 2024-06-13 00:15 | PTCARENOTE ---
sys reviewed, dilaudid 0.5 mg iv given for pain, pt answering questions appropriately, CHG bath done, linens changed
[2024-06-13 03:39] LABS: Hematocrit 25.9 % (39.0-52.0); Hemoglobin 8.4 g/dL (13.0-18.0); Mean Corp Hgb Conc. 32.4 g/dL (33.0-37.0); Mean Corpuscular Hgb 28.5 pg (27.0-31.0); Mean Corpuscular Volume 87.8 fL (80.0-94.0); Mean Platelet Volume 10.6 fL (7.4-10.4); Platelet Count 144 10^3/uL (130-400); Red Blood Cell Count 2.95 10^6/uL (4.70-6.10); Red Cell Dist. Width 17.6 % (11.5-14.5); White Blood Cell Count 2.8 10^3/uL (4.8-10.8)
--- NOTE | 2024-06-13 03:44 | PTCARENOTE ---
sys reviewed, dilauaid 0.5mg iv given for back pain, answering questions & following commands
[2024-06-13 04:30] LABS: Blood Urea Nitrogen 59 mg/dl (9-20); Calcium 8.3 mg/dl (8.4-10.2); Carbon Dioxide 26 mmol/L (22-30); Chloride 100 mmol/L (98-107); Estimated Creatinine Clearance 28 ml/min; Glucose 104 mg/dl (70-99); Potassium 4.2 mmol/L (3.5-5.1); Sodium 138 mmol/L (135-145); eGFR 20.07
[2024-06-13 05:50] LABS: Glucose - Point of Care 102 mg/dl (70-99)
[2024-06-13] MEDS: LOPRESSOR 5 MG IV ×4 (05:51→23:36)
--- NOTE | 2024-06-13 06:38 | W.PN.HOSP.TC ---
Addendum entered and electronically signed by Shahzad Mirza MD 06/13/24 15:02:
Addendum
I met the at bedside. Updated and answered all questions.
Regarding back pain, will continue with lidocaine patch, Tylenol, Dilaudid. Avoid tramadol due to kidney damage and possibility of encephalopathy.
requested a note for son to be allowed to see his sick father ( Provided).
End
Original Note:
Today's Communication/Plan
-
Pending GI work up/ EGD, appreciate GI help
Will d/w nephrology and ID about Cefepime
Swallow evaluation
Assessment / Plan
Assessment / Plan
Physical Exam
General: chronically ill looking, not in respiratory distress
HEENT: Normocephalic
Respiratory: limited, no wheezes
Cardiac: S1/S2
GI: Soft, not distended, unable to respond if tenderness or not
Musculoskeletal: 2+ edema in bilateral lower extremities
Skin: Warm. Dry.
Neuro: Awake,better alertness and oriented, followed simple commands.
Psych: Confused
Assessment/Plan
74 years old male presented with altered mentation and was found to have signs of shock with recent GI bleeding/hematemesis
#Hemorrhagic shock secondary to GI bleeding/hematemesis, likely upper GI bleeding from history
#Coagulopathy s/p Kcentra
Toxic metabolic encephalopathy
Better mentation
Abdominal x ray showed moderate fecal material in the colon. No free air.
Patient received a total of 5 units of PRBCs so far
Continue IV Protonix 40 mg BID
NPO, ok for liquid if passes swallow test. His swallow test was not good 06/12 due to confusion. d/w speech therapist, to try again today
Received reversal agents in ER
Follow-up with GI and ICU doctors recommendations, pt will need EGD
Held anticoagulants (hold home Eliquis) and antiplatelets pending GI clearance
# TME
Good clinical improvement in last 24 hours. he is following commands
CT head on admission: no evidence for acute intracranial abnormality.
#Recent septic shock and treatment for bilateral lower extremity cellulitis, on IV cefepime.
#Possible L2/L3 discitis on 05/27/24 MRI, present on admission
Continue empiric cefepime x 6 weeks through 07/06/24
Chest x-ray to visualize chest and right PICC line. No signs of erythema/swelling around PICC line
Consulted ID, appreciate input
#Severe acute kidney injury(likely prerenal)/hyperkalemia/anion gap metabolic acidosis (due to lactic acidosis and CLIFF)
#Azotemia suspected due to upper GI bleed and acute kidney injury
Held diuretics, metformin, blood pressure medication
Patient seems to have chronic kidney disease stage IIIb from previous records
Baseline creatinine is 1.3 to 1.6
Despite IV fluids and red blood cell transfusion, renal function hasn't really improved -- so dialysis started 06/10
Abraham catheter for input and output monitor
Patient received IV sodium bicarbonate for acidosis, now getting dialysis (see below)
Close monitoring of renal function/potassium
Consulted nephrology, appreciate input -
# Significant history of medical non compliance, per records. But luckily patient was sent to SNF this time,
per history from previous admission, patient was not following with his family physician, stopped seeing lymphedema clinic, and was drinking alcohol daily Vodka before falling acutely ill this May. And Also he seemed to live alone, was using one
story of house by himself most of the week.
#Lactic Acidosis - RESOLVED
# Toxic metabolic encephalopathy secondary to shock and CLIFF
Patient has altered mentation, answers simple questions but generally obtunded and weak
No history of seizure. No history of headaches. Afebrile. No history of falls/head trauma
Ammonia level normal
Blood gas with pH 7.13 on 06/09/24
CT head with no contrast: No acute finding
Continue with empiric antibiotics as above
Follow-up with urine and blood cultures --> no growth so far
#Recent new onset paroxysmal atrial fibrillation
BP improved, will do low dose IV metoprolol
EKG consistent with atrial fibrillation.
Holding Eliquis and reversal with prothrombin complex concentrate due to GI bleeding, also holding aspirin per cardiology.
Held Atenolol in setting of hypotension
Recent echo showed LVEF 65 to 70%, trace TR, biatrial dilatation, mild MR.
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
Cardiology consultation recommendations appreciated
# Hyponatremia
# Pain in back
seems chronic
Low dose IV Dilaudid as needed.
#Type 2 Diabetes Mellitus
Hold metformin
Add insulin sliding scale
#History of primary hypertension. Improved BP, Resuming BB
#Recent hospitalization with incidental finding of proximal R thigh mass: 6.1 x 3.3 x 4.3cm solid lesion with internal vascularity in the proximal right thigh with differential including suspicious lymph node or soft tissue neoplasm. Patient and
were aware of it.
#Elevated proBNP
-proBNP 53445
-Volume removal via dialysis per nephrology
#Morbid Obesity
#History of stage II pressure coccygeal area injury
# Chronic history of bilateral lower extremity lymphedema
# History of alcohol use. No history of recent alcohol intake
#History of asthma on Dulera 200mcg BID at home with rescue albuterol - not currently having an exacerbation
#History of restrictive lung disease with post-bronchodilator FVC of 1.1L / 30% predicted via spirometry from 04/05/2024
# Significant BLE lymphedema
-Continue wound care and compression
Code Status: Full Code
DVT Prophylaxis: SCDs (supervisor public message service agreed that patient can get SCDs)
Total time spent to see the patient, examine the patient, review data and lab result, discussed treatment plan with family/patient, consultants,nursing staff around 57minutes
Anticipated Discharge: > 48 hours
Subjective/Interval History
-
Date of Service: June 13, 2024
More alert
Objective Data
-
Labs:
Laboratory Results
06/13/24 06/13/24
03:02 03:16
WBC 2.8 L
Hgb 8.4 L
Hct 25.9 L
Plt Count 144
Sodium 138
Potassium 4.2
Chloride 100
Carbon Dioxide 26
BUN 59 H
Creatinine 3.1 H
Glucose 104 H
Calcium 8.3 L
Vital Signs:
Vital Signs
Temp Pulse Resp BP Pulse Ox
98.8 F 104 16 118/79 99
06/13/24 03:45 06/13/24 05:51 06/13/24 05:50 06/13/24 05:51 06/13/24 05:50
I&O
06/11/24 06/12/24 06/13/24
06:59 06:59 06:59
Intake Total 600 / 600 0 / 0
Output Total 130 / 140 165 / 165 0 / 0
Balance 470 / 460 -165 / -165 0 / 0
[2024-06-13 07:40] LABS: Glucose - Point of Care 105 mg/dl (70-99)
[2024-06-13] MEDS: PROTONIX IV 40 MG IV ×2 (08:35→19:59)
[2024-06-13] MEDS: NSS (PRESERVATIVE FREE) 10 ML IV ×2 (08:35→19:59)
[2024-06-13] MEDS: HYDROPHOR 1 APPLIC TOPICAL (08:36)
[2024-06-13] MEDS: DESENEX/MITRAZOL/ZEASORB 1 APPLIC TOPICAL ×2 (08:36→21:34)
--- NOTE | 2024-06-13 10:05 | W.PN.CARDCBS ---
Today's Communication / Plan
-
Remains aFib with overall rate control on IV lopressor.
Remains off anticoagulation
Cr and H/H improving
Impression / Plan
-
.
Mapper: None, initially seen by Dr Vargas
Impression:
Presentation with altered mental status
TME
Hematemesis
Hemorrhagic shock with acute on chronic anemia, suspected GI bleeding
ARF
Hyperkalemia
Metabolic acidosis
Admission to 05/20-05/30/24 for sepsis, B/L cellulitis, ARF
Atrial fibrillation, diagnosed 05/2024
Hyponatremia
Morbid obesity
Suspected COLT
Type 2 diabetes mellitus
Hyperlipidemia
Hypertension
Lymphedema
B/L LE wounds
Alcohol use disorder
Poor self care
Proximal right thigh mass
ECHO 05/20/24: EF 65-70%, mod cLVH, mild RV enlargement, biatrial dilation, mild MR, trace TR, PAP 41mmHg, IV dilated, does not collapse, prominent anterior fat pad present, trivial pericardial effusion noted
Plan:
Afib rates remain overall stable, continue with Lopressor IV q6
Echo 05/20/24 with preserved EF, RV is dilated
He remains on hemodialysis. BUN is down to 59 and creatinine are 3.1 June 13, cr was 3.6 June 12.
Nephrology following, remains unclear whether he will recover. He may require long-term hemodialysis.
Improving mental status
Head CT on admission was overall unremarkable with motion artifact
Supportive care and workup as per primary service
Cont Cefepime for cellulitis.
Hemoglobin up to 8.4 on June 13, 8.3 on June 12.
Cont PPI.
Remain off all anticoagulation
Progress Note - Mapper
Subjective
Date of Service: June 13, 2024
Pt seen and examined. No cp or dyspnea
Objective
Labs:
06/13/24 03:16
06/13/24 03:02
Labs
Hgb 8.4 g/dL (13.0-18.0) L 06/13/24 03:16
Hct 25.9 % (39.0-52.0) L 06/13/24 03:16
Plt Count 144 10^3/uL (130-400) 06/13/24 03:16
PT 21.4 Sec (11.4-14.6) H 06/10/24 03:18
INR 1.84 06/10/24 03:18
APTT 35.5 Sec (23.4-35.0) H 06/10/24 03:18
Sodium 138 mmol/L (135-145) 06/13/24 03:02
Potassium 4.2 mmol/L (3.5-5.1) 06/13/24 03:02
BUN 59 mg/dl (9-20) H 06/13/24 03:02
Creatinine 3.1 mg/dL (0.7-1.3) H 06/13/24 03:02
Glucose 104 mg/dl (70-99) H 06/13/24 03:02
Vital Signs and I&O:
Vital Signs
Temp Pulse Resp BP Pulse Ox
97.9 F 107 16 121/59 95
06/13/24 08:00 06/13/24 09:00 06/13/24 09:00 06/13/24 09:00 06/13/24 09:00
Vital Signs
Temp Pulse Resp BP Pulse Ox
97.9 F 107 16 121/59 95
06/13/24 08:00 06/13/24 09:00 06/13/24 09:00 06/13/24 09:00 06/13/24 09:00
Intake & Output
06/11/24 06/12/24 06/13/24 06/14/24
06:59 06:59 06:59 06:59
Intake Total 600 / 600 0 / 0
Output Total 130 / 140 165 / 165 0 / 0
Balance 470 / 460 -165 / -165 0 / 0
Physical Exam
Physical Exam
General: No acute distress, confused
Neck: Negative JVD
Heart: Irregular irregular,, Negative S3 positive S1/S2, Negative S4, No murmur
Lungs: CTA b/l, negative wheezes/rales/rhonchi
Abd: Positive BS, NT/ND, neg rebound/rigidity/guarding
Ext: Negative cyanosis/clubbing +2 bilateral edema
Neuro: nonfocal
Skin: Venous stasis skin changes
--- NOTE | 2024-06-13 11:16 | PTCARENOTE ---
Pt denied pain at rest this am. Report pain with turning and repositioning only. After turn, pt reported continued pain and back spasms. PRN Dilaudid given. Pt appeared to sleep comfortably after med given. Pt then refused to be turned, stating
he will after pain meds. Dilaudid not due at that time. Pt seen by speech and approved for PO. notified. Requested additional PO pain meds and lidoderm patch.
[2024-06-13 12:03] LABS: Glucose - Point of Care 105 mg/dl (70-99)
--- NOTE | 2024-06-13 12:06 | W.PN.NEPH.PH ---
Today's Communication / Plan
-
HD tomorrow
Assessment/Plan
-
Impression:
Encephalopathy
Anemia with hematemesis on chronic oral anticoagulation (5.6)
History of recently diagnosed atrial fibrillation on Eliquis
Acute renal failure
Hyperkalemia
Metabolic acidosis (gapped and non gapped)
History of bilateral cellulitis and discitis on cefepime
History of alcohol use
Chronic lymphedema
Plan:
Acute kidney
-Likely prerenally mediated in setting of hypotension and acute anemia due to GI bleed
Also he has been on cefepime since 05/27, no eosinophilia noted on admit, UA WBC only 3-5
HD initiated on 06/10
echevarria removed and incontinent of urine -suspect he is still oliguric
would continue HD for now, schedule tomorrow
if no renal recovery noted need to change to tunneled HD catheter
hb stable off AC
d/w and nursing
-
-
Date of Service: June 13, 2024
CC / HPI / ROS
-
Chief Complaint:
Acute kidney
History of Present Illness:
Acute kidney injury HD x3 so far
Hemodynamically stable
Hemoglobin at 8.4 stable
Review of Systems:
Oliguric
wt decreasing
Patient mental status -more awake
cleared to eat
Labs
-
Labs:
WBC 2.8 10^3/uL (4.8-10.8) L 06/13/24 03:16
RBC 2.95 10^6/uL (4.70-6.10) L 06/13/24 03:16
Hgb 8.4 g/dL (13.0-18.0) L 06/13/24 03:16
Hct 25.9 % (39.0-52.0) L 06/13/24 03:16
Plt Count 144 10^3/uL (130-400) 06/13/24 03:16
Sodium 138 mmol/L (135-145) 06/13/24 03:02
Potassium 4.2 mmol/L (3.5-5.1) 06/13/24 03:02
Chloride 100 mmol/L (98-107) 06/13/24 03:02
Carbon Dioxide 26 mmol/L (22-30) 06/13/24 03:02
BUN 59 mg/dl (9-20) H 06/13/24 03:02
Creatinine 3.1 mg/dL (0.7-1.3) H 06/13/24 03:02
eGFR 20.07 06/13/24 03:02
Glucose 104 mg/dl (70-99) H 06/13/24 03:02
Calcium 8.3 mg/dl (8.4-10.2) L 06/13/24 03:02
Phosphorus 5.3 mg/dl (2.5-4.5) H 06/12/24 03:15
Rpg-X-Minhyqnjwgz Pept > 15234 pg/ml 06/12/24 03:15
Albumin 2.7 g/dl (3.5-5.0) L 06/10/24 03:18
Physical Exam
-
Vital Signs:
Vital Signs
Temp Pulse Resp BP Pulse Ox
97.9 F 106 13 130/81 97
06/13/24 08:00 06/13/24 11:00 06/13/24 11:00 06/13/24 11:00 06/13/24 11:00
Cardiovascular:: Regular rate and rhythm
Respiratory:: Bilateral: Coarse (decreased)
Lung Excursion:: Normal
Abdomen:: Nontender and Soft
Bowel Sounds:: Decreased
Extremity Edema:: +2: Bilateral:
Echevarria Catheter: No
--- NOTE | 2024-06-13 14:24 | W.PN.ID1 ---
Date of Service
Date of Service: June 13, 2024
Today's Communication
Continue cefepime at current dose.
Assessment / Plan
# Possible L2/L3 discitis on 05/27/24 MRI, present on admission
- Continue empiric cefepime x 6 weeks through 07/06/24
- Continue cefepime dose 1g IV q24, as patient remains on HD.
- CRP trended up could be due to current acute illness: GIB, CLIFF
# CLIFF - started HD 06/10
# UGIB with blood loss anemia
# s/p Low BP due to blood loss
# Significant BLE lymphedema
- No signs of infection
-Continue wound care and compression
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
Diabetes mellitus
Asthma
Afib on eliquis
Dyslipidemia
Hypertension
Class III obesity BMI 42
Possible L2/L3 discitis on IV cefepime through 07/06/24
Bilateral lower extremity lymphedema - goes to lymphedema PT
Alcohol use disorder
Chief Complaint
-: Other (possible discitis)
Subjective / Review of Systems
Comfortable
Vital Signs / Physical Exam
Vital Signs
Vital Signs
Temp Pulse Resp BP Pulse Ox
97.8 F 101 10 122/72 95
06/13/24 12:09 06/13/24 14:00 06/13/24 14:00 06/13/24 14:00 06/13/24 14:00
Physical Exam
Constitutional: Comfortable
Cardiovascular: Irregular Rate and Other (tachycardic)
Pulmonary: Clear
Gastrointestinal: Soft, Non Tender and Non Distended
Extremities: Edema (BLE)
Lines: PICC
Objective Data
Lab Data
Lab Results
06/13/24 03:16
06/13/24 03:02
PT 21.4 Sec (11.4-14.6) H 06/10/24 03:18
INR 1.84 06/10/24 03:18
APTT 35.5 Sec (23.4-35.0) H 06/10/24 03:18
Estimated Creat Clear 28 ml/min 06/13/24 03:02
Lactic Acid 1.5 mmol/L (0.7-2.0) 06/09/24 16:25
Total Bilirubin 0.8 mg/dl (0.2-1.3) 06/10/24 03:18
AST 18 U/L (17-59) 06/10/24 03:18
ALT 19 U/L (0-50) 06/10/24 03:18
Alkaline Phosphatase 88 U/L (38-126) 06/10/24 03:18
C-Reactive Protein 137.60 mg/L (0.0-10.00) H 06/13/24 03:02
Most recent labs reviewed.
Micro Results:
06/09/24 11:10 Blood Culture - Preliminary
Blood/Venous No Growth in 4 days- Final report to follow
06/09/24 10:48 Blood Culture - Preliminary
Blood/Venous No Growth in 4 days- Final report to follow
06/09/24 16:25 MRSA Screen - Final
Nose No Methicillin Resistant Staphylococcus aureus isolated.
06/09/24 11:10 Urine Culture - Final
Urine NO GROWTH
06/09/24 CXR: Mild to moderate elevation of the right hemidiaphragm, stable. There is a band of increased density in the left mid to lower lung, horizontal, stable appearance from prior examination, compatible with stable atelectasis and/or scarring.
--- NOTE | 2024-06-13 14:40 | W.PN.GI.CBS2 ---
Today's Communication / Plan
-
Continue to monitor H&H. Supportive care. Will need to address EGD again with prior to d/c or sooner if evidence of brisk active bleeding.
Assessment / Plan
-
1. GI bleed: With coffee-ground emesis and initial melena, in the setting of anticoagulation and uremia with acute renal failure, now status post DDAVP, Kcentra, no further significant gross bleeding. Likely stasis/atony from acute renal
failure/uremia with gastritis and esophagitis, less likely peptic ulcer disease. At this point he has no further significant gross bleeding, though still has anuric failure with uremia which is slowly improving, status post dialysis x 2, planning
for dialysis again tomorrow. His hemoglobin has remained stable with supportive care. Ideally, would proceed with endoscopy at some point in his hospitalization, however, patient's is hesitant to proceed at this time or possible at all during
admission. I do feel we need to have this addressed prior to discharge and will reiterate the importance of performing this exam but for now, okay to continue monitoring his hemoglobin, supportive care PPI and observation. If signs of brisk active
GI bleeding, will need to revisit conversation more urgently. He remains off of anticoagulation.
Subjective
Subjective
Date of Service: June 13, 2024
Patient seen in follow-up. No overnight events. Hemoglobin stable this morning.
Objective
Data Reviewed
Laboratory Data:
Laboratory Results
06/13/24 03:16
06/13/24 03:02
Laboratory Results
PT 21.4 Sec (11.4-14.6) H 06/10/24 03:18
INR 1.84 06/10/24 03:18
APTT 35.5 Sec (23.4-35.0) H 06/10/24 03:18
Phosphorus 5.3 mg/dl (2.5-4.5) H 06/12/24 03:15
Magnesium 1.9 mg/dl (1.6-2.3) 03/31/25 03:15
Total Bilirubin 0.8 mg/dl (0.2-1.3) 06/10/24 03:18
AST 18 U/L (17-59) 06/10/24 03:18
ALT 19 U/L (0-50) 06/10/24 03:18
Alkaline Phosphatase 88 U/L (38-126) 06/10/24 03:18
Vital Signs and I&O:
Vital Signs
Temp Pulse Resp BP Pulse Ox
97.8 F 101 10 122/72 95
06/13/24 12:09 06/13/24 14:00 06/13/24 14:00 06/13/24 14:00 06/13/24 14:00
I&O
06/12/24 06/13/24 06/14/24
06:59 06:59 06:59
Intake Total 0 / 0
Output Total 165 / 165 0 / 0
Balance -165 / -165 0 / 0
Physical Exam
Physical Exam
HEENT: Anicteric and Moist mucous membranes
GI: Soft, Non Distended and Other (mild tenderness diffusely, no rebound or guarding)
--- NOTE | 2024-06-13 14:53 | CM ---
CM following re: discharge planning.
Discussed in rounds, reviewed pt's chart, met with pt and pt's spouse Sanam at bedside. Per nephrology, no renal recovery seen yet. Will coordinate with acute care nursing assistant to whether or not pt will need permanent HD treatment.
Per CM note, pt is admitted from [facility] and family does not want pt returns back there. Both pt and his spouse are aware that [facility] as their preferred SNF does not accept managed insurances.
Per spouse, if pt requires outpatient HD treatment she preferred [facility] on [address] and a preferred SNF will be discussed closer to discharge. Pt's spouse stated she is planning to bring her to [facility] where she lives and she will
start working on it after the completion of a short term rehab.
D/C plan: preferred SNF when medically stable.
CM will follow with discharge plan updates as hospitalization progresses
[2024-06-13 15:18] LABS: Hepatitis B Core Ab, Total Negative (Negative)
[2024-06-13] MEDS: MAXIPIME 1000 MG IV (15:31)
[2024-06-13] MEDS: TYLENOL 1000 MG PO (15:32)
[2024-06-13] MEDS: STERILE WATER FOR INJECTION 10 ML IV (15:32)
[2024-06-13] MEDS: LIDOCAINE 4% PATCH TOPICAL (15:33)
[2024-06-13 16:49] LABS: Glucose - Point of Care 134 mg/dl (70-99)
--- NOTE | 2024-06-13 20:00 | PTCARENOTE ---
Rec'd pt resting in bed w/ at bedside, oriented to name, place,needs reorientation to time, forgetful, follows commands, dilaudid 0.5 mg iv given for back pain, afib, bp stable, distal pulses via doppler leg dsgs intact, + edema, o2 2 liters
nc, lungs decr in bases, scat exp wheezes, sat 97, + bowel sounds, no bm, abd obese, oliguric
[2024-06-13 21:44] LABS: Glucose - Point of Care 146 mg/dl (70-99)
--- NOTE | 2024-06-13 23:40 | PTCARENOTE ---
dilaudid 0.5 mg iv given for pain
[2024-06-14] VITALS (34 sets, daily range): BP systolic 119–158; BP diastolic 65–93; PULSE 109–145; O2SAT 95; BMI 43.8
--- NOTE | 2024-06-14 | PTCARENOTE ---
sys reviewed, DCHG bath done, linens changed
[2024-06-14] MEDS: DILAUDID 0.5 MG IV ×5 (03:22→21:05)
--- NOTE | 2024-06-14 03:25 | PTCARENOTE ---
sys reviewed, Dilaudid 0.5mg iv given for back pain
[2024-06-14 03:45] LABS: Hematocrit 26.5 % (39.0-52.0); Hemoglobin 8.6 g/dL (13.0-18.0); Mean Corp Hgb Conc. 32.5 g/dL (33.0-37.0); Mean Corpuscular Hgb 28.6 pg (27.0-31.0); Mean Platelet Volume 9.8 fL (7.4-10.4); Platelet Count 163 10^3/uL (130-400); Red Blood Cell Count 3.01 10^6/uL (4.70-6.10); Red Cell Dist. Width 17.6 % (11.5-14.5); White Blood Cell Count 2.6 10^3/uL (4.8-10.8)
[2024-06-14 04:11] LABS: Blood Urea Nitrogen 72 mg/dl (9-20); Calcium 8.4 mg/dl (8.4-10.2); Carbon Dioxide 26 mmol/L (22-30); Chloride 99 mmol/L (98-107); Estimated Creatinine Clearance 21 ml/min; Glucose 128 mg/dl (70-99); Potassium 4.3 mmol/L (3.5-5.1); Sodium 138 mmol/L (135-145); eGFR 14.78
[2024-06-14] MEDS: LOPRESSOR 5 MG IV ×4 (05:32→23:52)
[2024-06-14 07:37] LABS: Glucose - Point of Care 124 mg/dl (70-99)
--- NOTE | 2024-06-14 08:47 | W.PN.GI.CBS2 ---
Today's Communication / Plan
-
Hemoglobin stable. Continue to monitor for signs of active/brisk GI bleeding.
Assessment / Plan
-
1. GI bleed: With coffee-ground emesis and initial melena, in the setting of anticoagulation and uremia with acute renal failure, now status post DDAVP, Kcentra, no further significant gross bleeding. Likely stasis/atony from acute renal
failure/uremia with gastritis and esophagitis, less likely peptic ulcer disease. At this point he has no further significant gross bleeding, though still has anuric failure with uremia which is slowly improving, continuing with hemodialysis. His
hemoglobin has remained stable with supportive care. Ideally, would proceed with endoscopy at some point in his hospitalization, however, patient's is hesitant to proceed at this time or possibly at all during admission. I do feel we need to
have this addressed prior to discharge and will reiterate the importance of performing this exam but for now, okay to continue monitoring his hemoglobin, supportive care PPI and observation. If signs of brisk active GI bleeding, will need to revisit
conversation more urgently. He remains off of anticoagulation.
Subjective
Subjective
Date of Service: June 14, 2024
Patient seen in follow-up, offers no complaints. Hemoglobin remains stable. Last documented bowel movement was 06/12.
Objective
Data Reviewed
Laboratory Data:
Laboratory Results
06/14/24 03:27
06/14/24 03:27
Laboratory Results
PT 21.4 Sec (11.4-14.6) H 06/10/24 03:18
INR 1.84 06/10/24 03:18
APTT 35.5 Sec (23.4-35.0) H 06/10/24 03:18
Phosphorus 5.3 mg/dl (2.5-4.5) H 06/12/24 03:15
Magnesium 1.9 mg/dl (1.6-2.3) 06/12/24 03:15
Total Bilirubin 0.8 mg/dl (0.2-1.3) 06/10/24 03:18
AST 18 U/L (17-59) 06/10/24 03:18
ALT 19 U/L (0-50) 06/10/24 03:18
Alkaline Phosphatase 88 U/L (38-126) 06/10/24 03:18
Vital Signs and I&O:
Vital Signs
Temp Pulse Resp BP Pulse Ox
98.1 F 99 14 137/89 98
06/14/24 07:16 06/14/24 06:00 06/14/24 06:00 06/14/24 06:00 06/14/24 06:00
I&O
06/13/24 06/14/24 06/15/24
06:59 06:59 06:59
Intake Total 0 / 0 200 / 200
Output Total 0 / 0
Balance 0 / 0 200 / 200
Physical Exam
Physical Exam
HEENT: Anicteric and Moist mucous membranes
GI: Soft, Non Distended and Other (mild tenderness diffusely, no rebound or guarding)
[2024-06-14] MEDS: LIDOCAINE 4% PATCH TOPICAL (08:56)
[2024-06-14] MEDS: PROTONIX IV 40 MG IV ×2 (09:03→20:02)
[2024-06-14] MEDS: NSS (PRESERVATIVE FREE) 10 ML IV ×2 (09:03→20:02)
[2024-06-14] MEDS: NOVOLOG FLEXPEN-LOW RESISTANCE SC ×2 (09:04→17:31)
--- NOTE | 2024-06-14 09:30 | PTCARENOTE ---
Rec'd pt at 0800 awake and alert resting in bed. Overall is oriented but will get sl forgetful but is appropriate. Does get anxious with turning but then calms. Admitted this am to 910 chronic back pain. Medicated at 0910 with Dilaudid 0.5 mg IV.
Skin is pale pink wm and dry. Lower legs with dressings and ernie wraps-will redress later today. Skin reddned on lower legs. Foot pumps intact. Respirs are [id number] at rest but does get ALEGRIA. Rec'd pt on 2L nc with sats of 96%- with turning
desatted to 86% and took a few minutes to rebound back to 95%. BS are decreased with some exp wheezing throughout. Monitor AFib- rates 90-120. +3 LE edema and +1-2 scrotal edema. + pulses. PT and DP pulses with the doppler. Extremities are warm.
Elevated on pillows. Denies chest pain. VS as documented. Abd is obese with + BS. Did not have much of an appetite this morning but did eat some applesauce. Incont of a small amt of ehsan urine. Capped R upper arm PICC and L upper arm midline are
intact -sites wnl. R IJ Non-tunneled HD cath intact-site wnl. Capped. Skin and mouth care given. Turned and repositioned. Family at the bedside. Pt needs encouragement to do activities. Plan of care reviewed with pt and call bowling in reach.
--- NOTE | 2024-06-14 09:30 | PTCARENOTE ---
Rec'd pt at 0800 awake and alert resting in bed. Overall is oriented but will get sl forgetful but is appropriate. Does get anxious with turning but then calms. Admitted this am to 910 chronic back pain. Medicated at 0910 with Dilaudid 0.5 mg IV.
Skin is pale pink wm and dry. Lower legs with dressings and ernie wraps-will redress later today. Respirs are [id number]-mio-[id number] at rest but does get ALEGRIA. Rec'd pt on 2L nc with sats of 96%- with turning desatted to 86% and took a few minutes to
rebound back to 95%. BS are decreased with some exp wheezing throughout. Monitor AFib- rates 90-120. +3 LE edema and +1-2 scrotal edema. + pulses. PT and DP pulses with the doppler. Extremities are warm. Elevated on pillows. Denies chest pain. VS as
documented. Abd is obese with + BS. Did not have much of an appetite this morning but did eat some applesauce. Incont of a small amt of ehsan urine. Skin and mouth care given. Turned and repositioned. Family at the bedside. Pt needs encouragement to
do activities. Plan of care reviewed with pt and call bowling in reach.
--- NOTE | 2024-06-14 11:04 | W.PN.CARDCBS ---
Today's Communication / Plan
-
Remains in rate controlled atrial fibrillation with no further bleeding. However he remains off full anticoagulation.
Continue IV Lopressor for now but hopefully restart atenolol over next 24 to 48 hours.
Continue hemodialysis.
I would encourage him to get an endoscopy because he is high risk for stroke with his high [id number] score if he remains off full anticoagulation.
Impression / Plan
-
.
[employer]: None, initially seen by Dr Vargas
Impression:
Presentation with altered mental status
TME
Hematemesis
Hemorrhagic shock with acute on chronic anemia, suspected GI bleeding
ARF
Hyperkalemia
Metabolic acidosis
Admission to 05/20-05/30/24 for sepsis, B/L cellulitis, ARF
Atrial fibrillation, diagnosed 05/2024
Hyponatremia
Morbid obesity
Suspected COLT
Type 2 diabetes mellitus
Hyperlipidemia
Hypertension
Lymphedema
B/L LE wounds
Alcohol use disorder
Poor self care
Proximal right thigh mass
ECHO 05/20/24: EF 65-70%, mod cLVH, mild RV enlargement, biatrial dilation, mild MR, trace TR, PAP 41mmHg, IV dilated, does not collapse, prominent anterior fat pad present, trivial pericardial effusion noted
Plan:
Afib rates remain overall stable, continue with Lopressor IV q6. Eventually restart atenolol once he can take oral medication
Echo 05/20/24 with preserved EF, RV is dilated
He remains on hemodialysis. For hemodialysis today.
Nephrology following, remains unclear whether he will recover. He may require long-term hemodialysis.
Improving mental status
Head CT on admission was overall unremarkable with motion artifact
Supportive care and workup as per primary service
Cont Cefepime for cellulitis.
He has no further bleeding but hemoglobin remains low. It remains stable in the 8-9 range. He needs an endoscopy prior to discharge, especially if we plan on restarting full anticoagulation on him.
Progress Note - [employer]
Subjective
Date of Service: June 14, 2024
A-fib overall remains rate controlled. He will get further dialysis today. He denies further bleeding.
Objective
Labs:
06/14/24 03:27
06/14/24 03:27
Labs
Hgb 8.6 g/dL (13.0-18.0) L 06/14/24 03:27
Hct 26.5 % (39.0-52.0) L 06/14/24 03:27
Plt Count 163 10^3/uL (130-400) 06/14/24 03:27
PT 21.4 Sec (11.4-14.6) H 06/10/24 03:18
INR 1.84 06/10/24 03:18
APTT 35.5 Sec (23.4-35.0) H 06/10/24 03:18
Sodium 138 mmol/L (135-145) 06/14/24 03:27
Potassium 4.3 mmol/L (3.5-5.1) 06/14/24 03:27
BUN 72 mg/dl (9-20) H 06/14/24 03:27
Creatinine 4.0 mg/dL (0.7-1.3) H 06/14/24 03:27
Glucose 128 mg/dl (70-99) H 06/14/24 03:27
Vital Signs and I&O:
Vital Signs
Temp Pulse Resp BP Pulse Ox
97.6 F 102 10 130/87 95
06/14/24 11:00 06/14/24 10:00 06/14/24 10:00 06/14/24 10:00 06/14/24 10:00
Vital Signs
Temp Pulse Resp BP Pulse Ox
97.6 F 102 10 130/87 95
06/14/24 11:00 06/14/24 10:00 06/14/24 10:00 06/14/24 10:00 06/14/24 10:00
Intake & Output
06/12/24 06/13/24 06/14/24 06/15/24
06:59 06:59 06:59 06:59
Intake Total 0 / 0 200 / 200 150 / 150
Output Total 165 / 165 0 / 0
Balance -165 / -165 0 / 0 200 / 200 150 / 150
Physical Exam
Physical Exam
GEN: No distress, awake, Ox3
HEENT: supple, anicteric, mmm
LUNGS: CTA, no wheezes/rales
CV: Irreg, S1/S2, 1/6 syst LSB, no gallop
ABD: soft, BS+, NT/ND
EXT: ++ edema
NEURO: Gross non-focal
SKIN: Chronic venous stasis changes
--- NOTE | 2024-06-14 11:24 | PTCARENOTE ---
Pt worked with PT/OT and sat on the side of the bed and stood 3 times. Did c/o back pain with movement- does not tolerated lying flat from a back pain standpoint. Hob elevated. HR did go up into the 130-150's briefly with standing moving but then
settled back into the 110 range. Pt is weak with both his arms and legs. Arms are weak and needs assistance to eat and do care. in with pt. Call bowling in reach.
--- NOTE | 2024-06-14 11:28 | W.PN.HOSP.TC ---
Addendum entered and electronically signed by Shahzad Mirza MD 06/14/24 13:02:
Addendum
I d/w pump installation and servicer and GI doctors. Patient has uncontrolled a fib and at risk for stroke without AC. Per GI, no plan to do EGD at present time( see GI note) . The plan was discussed and agreed on to start conservative dose of IV heparin gtt and
closely monitor H & H . I called and she agreed to the plan. d/w pharmacist.
End
Original Note:
Today's Communication/Plan
-
Encourage GI work up to decide about Eliquis/ aspirin.
Will c/w rate control per cardiology recommendations. Will reach out to cardiology.
Acute back pain is the main issue to the pt, trial of high dose Tylenol TID, keep PRN IV Dilaudid.
Assessment / Plan
Assessment / Plan
Physical Exam
General: chronically ill looking, not in respiratory distress
HEENT: Normocephalic
Respiratory: limited, no wheezes
Cardiac: S1/S2
GI: Soft, not distended, unable to respond if tenderness or not
Musculoskeletal: 2+ edema in bilateral lower extremities
Skin: Warm. Dry.
Neuro: Awake,better alertness and oriented, seems to be approaching his baseline, followed simple commands.
Psych: Confused
Assessment/Plan
74 years old male presented with altered mentation and was found to have signs of shock with recent GI bleeding/hematemesis
#Hemorrhagic shock secondary to GI bleeding/hematemesis, likely upper GI bleeding from history
#Coagulopathy s/p Kcentra
Toxic metabolic encephalopathy
Better mentation
Abdominal x ray showed moderate fecal material in the colon. No free air.
Patient received a total of 5 units of PRBCs so far
Continue IV Protonix 40 mg BID
Started on oral diet per GI recommendations.
Received reversal agents in ER
Follow-up with GI and ICU doctors recommendations, pt will need EGD
Per GI: His hemoglobin has remained stable with supportive care. Ideally, would proceed with endoscopy at some point in his hospitalization, however, patient's is hesitant to proceed at this time or possibly at all during admission.
Held anticoagulants (hold home Eliquis) and antiplatelets pending GI clearance
I encouraged the pt to do GI work up
# Acute on chronic low back pain.
This issue seems to be the driving discomfort for the patient. No fever or leukocytosis. Blood culture is negative
Will do Tylenol TID ( high dose), will c/w low dose IV Dilaudid PRN.
# TME
Good clinical improvement in last 48 hours. he is following commands, answering questions, sometimes forgetful
CT head on admission: no evidence for acute intracranial abnormality.
#Recent septic shock and treatment for bilateral lower extremity cellulitis, on IV cefepime.
#Possible L2/L3 discitis on 05/27/24 MRI, present on admission
Continue empiric cefepime x 6 weeks through 07/06/24
Chest x-ray to visualize chest and right PICC line. No signs of erythema/swelling around PICC line
Consulted ID, appreciate input
#Severe acute kidney injury(likely prerenal)/hyperkalemia/anion gap metabolic acidosis (due to lactic acidosis and CLIFF)
#Azotemia suspected due to upper GI bleed and acute kidney injury
Held diuretics, metformin, blood pressure medication on admission.
Patient seems to have chronic kidney disease stage IIIb from previous records
Baseline creatinine is 1.3 to 1.6
Despite IV fluids and red blood cell transfusion, renal function hasn't really improved -- so dialysis started 06/10
Abraham catheter for input and output monitor
Patient received IV sodium bicarbonate for acidosis, now getting dialysis (see below)
Close monitoring of renal function/potassium
Consulted nephrology, appreciate input -
# history of medical non compliance, per records. But luckily patient was sent to this time, so non compliance was not an issue this time.
per history from previous admission, patient was not following with his family physician, stopped seeing lymphedema clinic, and was drinking alcohol daily Vodka before falling acutely ill this May. And Also he was using one story of house by
himself most of the week. His physical performance now will need SNF.
#Lactic Acidosis - RESOLVED
#Recent new onset paroxysmal atrial fibrillation
BP improved, c/w IV metoprolol
EKG consistent with atrial fibrillation.
Holding Eliquis and reversal with prothrombin complex concentrate due to GI bleeding, also holding aspirin per cardiology.
Held Atenolol in setting of hypotension
Recent echo showed LVEF 65 to 70%, trace TR, biatrial dilatation, mild MR.
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
Cardiology consultation recommendations appreciated
# Hyponatremia
#Type 2 Diabetes Mellitus
Hold metformin
Add insulin sliding scale
#History of primary hypertension. Improved BP, Resuming BB
#Recent hospitalization with incidental finding of proximal R thigh mass: 6.1 x 3.3 x 4.3cm solid lesion with internal vascularity in the proximal right thigh with differential including suspicious lymph node or soft tissue neoplasm. Patient and
were aware of it.
#Elevated proBNP
-proBNP [id number]
-Volume removal via dialysis per nephrology
#Morbid Obesity
#History of stage II pressure coccygeal area injury
# Chronic history of bilateral lower extremity lymphedema
# History of alcohol use. No history of recent alcohol intake
#History of asthma on Dulera 200mcg BID at home with rescue albuterol - not currently having an exacerbation
#History of restrictive lung disease with post-bronchodilator FVC of 1.1L / 30% predicted via spirometry from 04/05/2024
# Significant BLE lymphedema
-Continue wound care and compression
Code Status: Full Code
DVT Prophylaxis: SCDs (auditing manager agreed that patient can get SCDs)
Total time spent to see the patient, examine the patient, review data and lab result, discussed treatment plan with family/patient, , consultants,nursing staff around 57minutes
Anticipated Discharge: > 48 hours
Subjective/Interval History
-
Date of Service: June 14, 2024
His main complaint is back pain
No headache, no chest pain
No nausea
Was given Dilaudid last night
Objective Data
-
Labs:
Laboratory Results
06/14/24
03:27
WBC 2.6 L
Hgb 8.6 L
Hct 26.5 L
Plt Count 163
Sodium 138
Potassium 4.3
Chloride 99
Carbon Dioxide 26
BUN 72 H
Creatinine 4.0 H
Glucose 128 H
Calcium 8.4
Vital Signs:
Vital Signs
Temp Pulse Resp BP Pulse Ox
97.6 F 102 10 130/87 95
06/14/24 11:00 06/14/24 10:00 06/14/24 10:00 06/14/24 10:00 06/14/24 10:00
I&O
06/13/24 06/14/24 06/15/24
06:59 06:59 06:59
Intake Total 0 / 0 200 / 200 150 / 150
Output Total 0 / 0
Balance 0 / 0 200 / 200 150 / 150
[2024-06-14 11:55] LABS: Glucose - Point of Care 158 mg/dl (70-99)
[2024-06-14] MEDS: TYLENOL 1000 MG PO ×3 (12:24→23:52)
--- NOTE | 2024-06-14 12:30 | PTCARENOTE ---
HD here and ready to start HD. No other changes in assessment. Ate a few bites of food earlier but overall appetite is limited. VS as documented. Call bowling in reach.
[2024-06-14] MEDS: DESENEX/MITRAZOL/ZEASORB 1 APPLIC TOPICAL ×2 (13:07→20:04)
[2024-06-14] MEDS: NOVOLOG FLEXPEN-LOW RESISTANCE 1 UNITS SC (13:07)
--- NOTE | 2024-06-14 13:18 | W.PN.NEPH.HD ---
Assessment
-
Patient seen on dialysis
Systolic blood pressure 146
Mental status gradually improving
We will continue to try to titrate back volume status as hemodynamically tolerated
Next dialysis will be on Wednesday
Progress Note - Hemodialysis
-
Date of Service: June 14, 2024
Duration: 30 minutes and 3 hours
Potassium Bath: 3
Calcium Bath: 2.5
Opti-Dialyzer: 160
Ultrafiltration: Other (2kg)
Blood Flow: 400
Dialysate Flow: 600
Heparin: None (to be placed on heparin gtt)
EPO: 10K
[2024-06-14 13:36] LABS: Hematocrit 26.7 % (39.0-52.0); Hemoglobin 8.7 g/dL (13.0-18.0); Mean Corp Hgb Conc. 32.6 g/dL (33.0-37.0); Mean Corpuscular Hgb 28.9 pg (27.0-31.0); Mean Corpuscular Volume 88.7 fL (80.0-94.0); Mean Platelet Volume 9.8 fL (7.4-10.4); Platelet Count 137 10^3/uL (130-400); Red Blood Cell Count 3.01 10^6/uL (4.70-6.10); Red Cell Dist. Width 17.6 % (11.5-14.5); White Blood Cell Count 1.1 10^3/uL (4.8-10.8)
[2024-06-14 13:40] LABS: APTT 33.9 Sec (23.4-35.0)
--- NOTE | 2024-06-14 13:46 | W.PN.ID1 ---
Date of Service
Date of Service: June 14, 2024
Today's Communication
- DC cefepime dose 1g IV q24 due to leukopenia.
- Replace with Ertapenem 500mg IV qd.
Assessment / Plan
# Acute Leukopenia
- WBC trending down, now 1.1.
- Possibly due to cefepime.
DC cefepime.
- Follow wbc.
# Possible L2/L3 discitis on 05/27/24 MRI, present on admission
- Continue empiric IV abx x 6 weeks through 07/06/24
- DC cefepime dose 1g IV q24 due to leukopenia.
- Replace with Ertapenem 500mg qd.
# CLIFF - started HD 06/10
# s/p UGIB with blood loss anemia
# s/p Low BP due to blood loss
# Significant BLE lymphedema
- No signs of infection
-Continue wound care and compression
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
Diabetes mellitus
Asthma
Afib on eliquis
Dyslipidemia
Hypertension
Class III obesity BMI 42
Possible L2/L3 discitis on IV cefepime through 07/06/24
Bilateral lower extremity lymphedema - goes to lymphedema PT
Alcohol use disorder
Chief Complaint
-: Other (possible discitis)
Subjective / Review of Systems
Alert today. No specific complaints. Back pain stable.
Vital Signs / Physical Exam
Vital Signs
Vital Signs
Temp Pulse Resp BP Pulse Ox
97.6 F 106 10 127/71 95
06/14/24 11:00 06/14/24 12:23 06/14/24 10:00 06/14/24 12:23 06/14/24 10:00
Physical Exam
Constitutional: Chronically Ill
Cardiovascular: Regular Rate and S1/S2
Pulmonary: Clear
Gastrointestinal: Soft, Non Tender, Non Distended and Normal Bowel Sounds
Extremities: Edema
Neurological: AO x 3
Lines: PICC
Objective Data
Lab Data
Lab Results
06/14/24 13:15
06/14/24 03:27
PT 21.4 Sec (11.4-14.6) H 06/10/24 03:18
INR 1.84 06/10/24 03:18
APTT 35.5 Sec (23.4-35.0) H 06/10/24 03:18
Estimated Creat Clear 21 ml/min 06/14/24 03:27
Lactic Acid 1.5 mmol/L (0.7-2.0) 06/09/24 16:25
Total Bilirubin 0.8 mg/dl (0.2-1.3) 06/10/24 03:18
AST 18 U/L (17-59) 06/10/24 03:18
ALT 19 U/L (0-50) 06/10/24 03:18
Alkaline Phosphatase 88 U/L (38-126) 06/10/24 03:18
C-Reactive Protein 137.60 mg/L (0.0-10.00) H 06/13/24 03:02
Most recent labs reviewed.
Micro Results:
06/09/24 11:10 Blood Culture - Final
Blood/Venous No Growth - Final Report
06/09/24 10:48 Blood Culture - Final
Blood/Venous No Growth - Final Report
06/09/24 16:25 MRSA Screen - Final
Nose No Methicillin Resistant Staphylococcus aureus isolated.
06/09/24 11:10 Urine Culture - Final
Urine NO GROWTH
06/09/24 CXR: Mild to moderate elevation of the right hemidiaphragm, stable. There is a band of increased density in the left mid to lower lung, horizontal, stable appearance from prior examination, compatible with stable atelectasis and/or scarring.
[2024-06-14] MEDS: RETACRIT 10000 UNITS IV (13:50)
[2024-06-14] MEDS: HEPARIN 25000 UNITS/250 ML IV (13:59)
--- NOTE | 2024-06-14 14:10 | PTCARENOTE ---
Remains on HD. C/O back pain. Medicated with Dilaudid 0.5 mg IV for 09/[address] Mirza updated on labs. Per orders Heparin gtt started at 1400 at 1000 units/hr via L arm midline catheter. No other changes
[2024-06-14] MEDS: INVANZ 55 MG IV (15:57)
[2024-06-14] MEDS: HYDROPHOR 1 APPLIC TOPICAL (16:30)
--- NOTE | 2024-06-14 16:30 | PTCARENOTE ---
HD completed. Wound care done to bilateral lower legs. VS as documented. No other changes. Back pain with movement. Pt for transfer to tele room
[2024-06-14 17:23] LABS: Glucose - Point of Care 105 mg/dl (70-99)
[2024-06-14] MEDS: FLUSH (NSS) 1 FLUSH IV (17:44)
--- NOTE | 2024-06-14 17:52 | PTCARENOTE ---
Remedicated with Dilaudid 0.5 mg IV for 10 back soreness. Midline dressing changed.
--- NOTE | 2024-06-14 18:28 | PTCARENOTE ---
Pt transferred on to the tele bed and currently report called to 4th floor. Will transfer pt via bed.
[2024-06-14 21:03] LABS: APTT 47.3 Sec (23.4-35.0)
[2024-06-14] MEDS: APRESOLINE 10 MG IV (21:18)
[2024-06-14 22:00] LABS: Glucose - Point of Care 125 mg/dl (70-99)
[2024-06-15] VITALS (7 sets, daily range): BP systolic 113–154; BP diastolic 65–98; BMI 44.4
[2024-06-15 03:47] LABS: APTT 46.7 Sec (23.4-35.0)
[2024-06-15] MEDS: LOPRESSOR 5 MG IV (05:03)
[2024-06-15] MEDS: DILAUDID 0.5 MG IV (05:14)
[2024-06-15 07:39] LABS: Glucose - Point of Care 108 mg/dl (70-99)
[2024-06-15] MEDS: NOVOLOG FLEXPEN-LOW RESISTANCE SC ×3 (08:09→18:25)
[2024-06-15] MEDS: DESENEX/MITRAZOL/ZEASORB 1 APPLIC TOPICAL ×2 (08:50→21:05)
[2024-06-15] MEDS: TYLENOL 1000 MG PO ×3 (08:51→18:26)
[2024-06-15] MEDS: HYDROPHOR 1 APPLIC TOPICAL (08:51)
[2024-06-15] MEDS: NSS (PRESERVATIVE FREE) 10 ML IV ×2 (08:53→21:04)
[2024-06-15] MEDS: PROTONIX IV 40 MG IV ×2 (08:53→21:05)
[2024-06-15] MEDS: TOPROL XL 50 MG PO (08:53)
[2024-06-15] MEDS: LIDOCAINE 4% PATCH TOPICAL (08:57)
--- NOTE | 2024-06-15 09:42 | W.PN.HOSP.TC ---
Today's Communication/Plan
-
IV Zofran PRN, opioid induced nausea.
Increase Tylenol to QID. Severe back pain/ radiculopathy, very limited option with renal impairment, recent GI bleeding.
Increase Toprol XL to BID to better control HR & BP.
Some encephalopathy noted by , cut back on IV Dilaudid.
Upgrade to IDDS-6
Press on PT/OT
Assessment / Plan
Assessment / Plan
Physical Exam
General: chronically ill looking, not in respiratory distress
HEENT: Normocephalic
Respiratory: limited, no wheezes
Cardiac: S1/S2
GI: Soft, not distended, unable to respond if tenderness or not
Musculoskeletal: 2+ edema in bilateral lower extremities
Skin: Warm. Dry.
Neuro: Awake,better alertness and oriented, seems to be approaching his baseline, followed simple commands.
Psych: Confused
Assessment/Plan
74 years old male presented with altered mentation and was found to have signs of shock with recent GI bleeding/hematemesis
#Hemorrhagic shock secondary to GI bleeding/hematemesis leading to acute blood loss anemia associated with Eliquis, likely upper GI bleeding from history
#Coagulopathy s/p Kcentra
Abdominal x ray showed moderate fecal material in the colon. No free air.
Patient received a total of 5 units of PRBCs so far
Continue IV Protonix 40 mg BID
Started on oral diet per GI recommendations.
Received reversal agents in ER
Follow-up with GI and ICU doctors recommendations, pt will need EGD
Per GI: His hemoglobin has remained stable with supportive care. Ideally, would proceed with endoscopy at some point in his hospitalization, however, patient's is hesitant to proceed at this time or possibly at all during admission.
Held oral anticoagulants (hold home Eliquis) and antiplatelets. d/w GI 4/, ok to use IV heparin gtt and monitor closely
d/w and pt about upper EGD, they decline mone present time.
# Acute on chronic low back pain.
This issue seems to be the driving discomfort for the patient. No fever or leukocytosis. Blood culture is negative
Increase Tylenol TID ( high dose) to QID, c/w lower dose IV Dilaudid PRN.
# Toxic metabolic encephalopathy
Good clinical improvement in last 48 hours. he is following commands, answering questions, sometimes forgetful
Will cut back on IV Dilaudid to avoid confusion. Non focal on exam.
CT head on admission: no evidence for acute intracranial abnormality.
#Recent septic shock and treatment for bilateral lower extremity cellulitis, on IV cefepime.
#Possible L2/L3 discitis on 05/27/24 MRI, present on admission
Plan was to do cefepime x 6 weeks through 07/06/24 but patient developed leukopenia, switched to Ertapenem.
Chest x-ray to visualize chest and right PICC line. No signs of erythema/swelling around PICC line
Consulted ID, appreciate input
#Severe acute kidney injury(likely prerenal)/hyperkalemia/anion gap metabolic acidosis (due to lactic acidosis and CLIFF)
#Azotemia suspected due to upper GI bleed and acute kidney injury
Anuric renal failure
Held diuretics, metformin, blood pressure medication on admission.
Patient seems to have chronic kidney disease stage IIIb from previous records
Baseline creatinine is 1.3 to 1.6
Despite IV fluids and red blood cell transfusion, renal function hasn't really improved -- so dialysis started 06/10
Abraham catheter, removed with lack of Output
Patient received IV sodium bicarbonate for acidosis, now getting dialysis.
Close monitoring of renal function/potassium
Consulted nephrology, appreciate input -
#Recent new onset paroxysmal atrial fibrillation
BP improved, stop IV metoprolol, change to oral Toprol, will do BID per sewing machine adjuster recommendation
EKG consistent with atrial fibrillation.
Holding Eliquis and reversal with prothrombin complex concentrate due to GI bleeding, also holding aspirin per cardiology.
Held Atenolol in setting of hypotension
Recent echo showed LVEF 65 to 70%, trace TR, biatrial dilatation, mild MR.
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
Cardiology consultation recommendations appreciated
# Hyponatremia
#Type 2 Diabetes Mellitus
Hold metformin
Add insulin sliding scale
#History of primary hypertension. Improved BP, Resuming BB
#Recent hospitalization with incidental finding of proximal R thigh mass: 6.1 x 3.3 x 4.3cm solid lesion with internal vascularity in the proximal right thigh with differential including suspicious lymph node or soft tissue neoplasm. Patient and
were aware of it.
#Elevated proBNP
-proBNP [id number]
-Volume removal via dialysis per nephrology
#Morbid Obesity
#History of stage II pressure coccygeal area injury
# Chronic history of bilateral lower extremity lymphedema
# History of alcohol use. No history of recent alcohol intake
#History of asthma on Dulera 200mcg BID at home with rescue albuterol - not currently having an exacerbation
#History of restrictive lung disease with post-bronchodilator FVC of 1.1L / 30% predicted via spirometry from 04/05/2024
# Significant BLE lymphedema
-Continue wound care and compression
Code Status: Full Code
DVT Prophylaxis: SCDs (water plant operator agreed that patient can get SCDs)
Total time spent to see the patient, examine the patient, review data and lab result, discussed treatment plan with family/patient, , consultants,nursing staff around 57minutes
Anticipated Discharge: > 48 hours
Subjective/Interval History
-
Date of Service: June 15, 2024
No chest pain
No sob
No fevers
Objective Data
-
Labs:
Laboratory Results
06/15/24 06/15/24 06/15/24
03:13 07:54 10:00
WBC Pending
Hgb Pending
Hct Pending
Plt Count Pending
APTT 46.7 H Pending
Vital Signs:
Vital Signs
Temp Pulse Resp BP Pulse Ox
97.5 F 107 20 154/84 98
06/15/24 07:30 06/15/24 08:53 06/15/24 07:30 06/15/24 08:53 06/15/24 07:30
I&O
06/14/24 06/15/24 06/16/24
06:59 06:59 06:59
Intake Total 200 / 200 580 / 580
Balance 200 / 200 580 / 580
[2024-06-15 10:27] LABS: Hematocrit 25.9 % (39.0-52.0); Hemoglobin 8.5 g/dL (13.0-18.0); Mean Corp Hgb Conc. 32.8 g/dL (33.0-37.0); Mean Corpuscular Hgb 28.8 pg (27.0-31.0); Mean Corpuscular Volume 87.8 fL (80.0-94.0); Mean Platelet Volume 9.8 fL (7.4-10.4); Platelet Count 147 10^3/uL (130-400); Red Blood Cell Count 2.95 10^6/uL (4.70-6.10); Red Cell Dist. Width 17.5 % (11.5-14.5); White Blood Cell Count 2.6 10^3/uL (4.8-10.8)
--- NOTE | 2024-06-15 10:30 | W.PN.CARDCBS ---
Addendum entered and electronically signed by Liss Vargas DO 06/15/24 18:21:
I saw and examined the patient.
The Car Electronics Installer's note was reviewed and I agree with the note.
Comment: Seen and examined. Offers no new complaints.
GEN: No acute distress
HEENT: mmm
LUNGS: Difficult exam anterolateral due to patient's inability to sit forward or roll over without assistance. Overall clear to auscultation
CV: Irreg irreg, S1/S2, no murmur
ABD: soft, BS+, NT/ND
EXT: B/L LE with ernie wraps in place
Plan:
New atrial fibrillation with elevated heart rates although asymptomatic
-Continue IV heparin and start NOAC when okay with GI
-Increase Toprol-XL to 50 mg twice daily
-Plan for rate control strategy
Hematemesis/GI bleed
-Monitor hemoglobin closely on heparin drip
-GI consult
-Patient/family have declined proceeding with endoscopy
Renal insufficiency now on new dialysis
-Volume status manage per nephrology
Original Note:
Today's Communication / Plan
-
IV heparin. OAC when ok per GI
rate control of afib, consider increasing toprol to 50mg BID
OP eval for watchman
Impression / Plan
-
.
Business Intelligence Etl Developer: None, initially seen by Dr Vargas
Impression:
Presentation with altered mental status
TME
Hematemesis
Hemorrhagic shock with acute on chronic anemia, suspected GI bleeding
ARF
Hyperkalemia
Metabolic acidosis
Admission to 05/20-05/30/24 for sepsis, B/L cellulitis, ARF
Atrial fibrillation, diagnosed 05/2024
Hyponatremia
Morbid obesity
Suspected COLT
Type 2 diabetes mellitus
Hyperlipidemia
Hypertension
Lymphedema
B/L LE wounds
Alcohol use disorder
Poor self care
Proximal right thigh mass
ECHO 05/20/24: EF 65-70%, mod cLVH, mild RV enlargement, biatrial dilation, mild MR, trace TR, PAP 41mmHg, IV dilated, does not collapse, prominent anterior fat pad present, trivial pericardial effusion noted
Plan:
-afib is recent diagnosis 05/2024. HRs elevated on review of tele this morning. was transitioned from IV lopressor Q6 to toprol 50mg daily 06/15 per primary service, uptitrate as needed for rate control. prior to admission he was on atenolol 25mg
daily.
-hgb stable in 8-9 range. GI following, GI bleed felt to be secondary to uremia. ideally would complete EGD prior to resuming full OAC, however patient and feel 'there is no need for that' after discussing with GI. [id number] score of 4 for
age, HTN, DM. HASBLED score calculated to be 6, high risk for bleeding. currently on IV heparin, transition back to OAC when ok per GI.
-consider OP evaluation for watchman as does not appear to be good shelter OAC candidate
-Echo 05/20/24 with preserved EF, RV is dilated
-started on HD this admission, continue volume mgmt through nephro.
-mental status overall improving from admission.
-continue treatment of B/L LE cellulitis per primary service
-d/w patient and at bedside
Progress Note - Business Intelligence Etl Developer
Subjective
Date of Service: June 15, 2024
no palpitations, CP.
Objective
Labs:
06/15/24 10:16
06/14/24 03:27
Labs
Hgb 8.5 g/dL (13.0-18.0) L 06/15/24 10:16
Hct 25.9 % (39.0-52.0) L 06/15/24 10:16
Plt Count 147 10^3/uL (130-400) 06/15/24 10:16
PT 21.4 Sec (11.4-14.6) H 06/10/24 03:18
INR 1.84 06/10/24 03:18
APTT 46.7 Sec (23.4-35.0) H 06/15/24 03:13
Sodium 138 mmol/L (135-145) 06/14/24 03:27
Potassium 4.3 mmol/L (3.5-5.1) 06/14/24 03:27
BUN 72 mg/dl (9-20) H 06/14/24 03:27
Creatinine 4.0 mg/dL (0.7-1.3) H 06/14/24 03:27
Glucose 128 mg/dl (70-99) H 06/14/24 03:27
Vital Signs and I&O:
Vital Signs
Temp Pulse Resp BP Pulse Ox
97.5 F 107 20 154/84 98
06/15/24 07:30 06/15/24 08:53 06/15/24 07:30 06/15/24 08:53 06/15/24 07:30
Vital Signs
Temp Pulse Resp BP Pulse Ox
97.5 F 107 20 154/84 98
06/15/24 07:30 06/15/24 08:53 06/15/24 07:30 06/15/24 08:53 06/15/24 07:30
Intake & Output
06/13/24 06/14/24 06/15/24 06/16/24
07:59 07:59 07:59 07:59
Intake Total 0 / 0 200 / 200 580 / 580
Output Total 0 / 0
Balance 0 / 0 200 / 200 580 / 580
Physical Exam
Physical Exam
GEN: No distress, awake, alert, oriented x3
HEENT: supple, anicteric, mmm, eomi
LUNGS: CTA B/L, no wheezes/rales
CV: Irreg irreg, S1/S2, no murmur
ABD: soft, BS+, NT/ND
EXT: No cyanosis, clubbing. B/L LE with ernie wraps in place
NEURO: Gross non-focal
SKIN: Warm, pink, dry. No rash.
[2024-06-15 10:42] LABS: APTT 64.1 Sec (23.4-35.0)
--- NOTE | 2024-06-15 12:33 | W.PN.GI.CBS2 ---
Today's Communication / Plan
-
Monitor H&H while on heparin gtt
Assessment / Plan
-
1. GI bleed: With coffee-ground emesis and initial melena, in the setting of anticoagulation and uremia with acute renal failure and septic shock with hospital course c/b toxic metabolic encephalopathy and afib, now status post DDAVP, Kcentra, no
further significant gross bleeding. Likely stasis/atony from acute renal failure/uremia with gastritis and esophagitis, less likely peptic ulcer disease. At this point he has no further significant gross bleeding, though still has anuric failure
with uremia which is slowly improving, continuing with hemodialysis. His hemoglobin has remained stable with supportive care. Ideally, would proceed with endoscopy at some point in his hospitalization, however, patient's has declined. I do
think this needs to be addressed again, especially now that patient is on heparin gtt. We will continue to monitor him on a drip for rebleeding but if no evidence of bleeding in the next 24-48 hours, will discuss again with that this is the
window of opportunity to perform an endoscopy, which should be done prior to his discharge. Ultimately it is her/patient's decision to proceed or not with an endoscopy. Continue PPI. Will continue to follow.
Subjective
Subjective
Date of Service: June 15, 2024
No overnight events. Hemoglobin stable today at 8.5. No bleeding. He was started on heparin gtt.
Objective
Data Reviewed
Laboratory Data:
Laboratory Results
06/15/24 10:16
06/14/24 03:27
Laboratory Results
PT 21.4 Sec (11.4-14.6) H 06/10/24 03:18
INR 1.84 06/10/24 03:18
APTT 64.1 Sec (23.4-35.0) H 06/15/24 10:16
Phosphorus 5.3 mg/dl (2.5-4.5) H 06/12/24 03:15
Magnesium 1.9 mg/dl (1.6-2.3) 06/12/24 03:15
Total Bilirubin 0.8 mg/dl (0.2-1.3) 06/10/24 03:18
AST 18 U/L (17-59) 06/10/24 03:18
ALT 19 U/L (0-50) 06/10/24 03:18
Alkaline Phosphatase 88 U/L (38-126) 06/10/24 03:18
Vital Signs and I&O:
Vital Signs
Temp Pulse Resp BP Pulse Ox
97.5 F 107 20 154/84 98
06/15/24 07:30 06/15/24 08:53 06/15/24 07:30 06/15/24 08:53 06/15/24 07:30
I&O
06/14/24 06/15/24 06/16/24
06:59 06:59 06:59
Intake Total 200 / 200 580 / 580
Balance 200 / 200 580 / 580
Physical Exam
Physical Exam
HEENT: Anicteric, Moist mucous membranes and Other (chronically-ill appearing)
GI: Soft, Non Distended, Non Tender and Other
[2024-06-15] MEDS: HEPARIN 25000 UNITS/250 ML IV (13:22)
[2024-06-15 13:28] LABS: Glucose - Point of Care 153 mg/dl (70-99)
[2024-06-15] MEDS: NOVOLOG FLEXPEN-LOW RESISTANCE 1 UNITS SC (14:57)
--- NOTE | 2024-06-15 15:58 | CM ---
pay station department manager reviewed patient's chart and spoke with patient and spouse, and will send referral to [facility] for skilled placement.
Plan; Skilled placement when stable.
--- NOTE | 2024-06-15 16:01 | W.PN.ID1 ---
Date of Service
Date of Service: June 15, 2024
Today's Communication
Continue Ertapenem 500mg IV q24 through 07/06/24
Assessment / Plan
# Acute Leukopenia
- cefepime dc'd 06/14.
- WBC improving
- Follow wbc.
# Possible L2/L3 discitis on 05/27/24 MRI, present on admission (pt had refused biopsy)
- Continue Ertapenem 500mg IV q24 through 07/06/24
- Current back pain most likely exacerbated by immobility.
No objection to steroid.
# CLIFF - started HD 06/10
# s/p UGIB with blood loss anemia
# s/p Low BP due to blood loss
# Significant BLE lymphedema
- No signs of infection
-Continue wound care and compression
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
Diabetes mellitus
Asthma
Afib on eliquis
Dyslipidemia
Hypertension
Class III obesity BMI 42
Possible L2/L3 discitis on IV cefepime through 07/06/24
Bilateral lower extremity lymphedema - goes to lymphedema PT
Chief Complaint
-: Other (possible discitis)
Subjective / Review of Systems
c/o back pain from laying in bed
Vital Signs / Physical Exam
Vital Signs
Vital Signs
Temp Pulse Resp BP Pulse Ox
97.8 F 103 22 113/65 94
06/15/24 11:38 06/15/24 11:38 06/15/24 11:38 06/15/24 11:38 06/15/24 11:38
Physical Exam
Constitutional: Chronically Ill
Cardiovascular: Regular Rate and S1/S2
Pulmonary: Clear
Gastrointestinal: Soft, Non Tender, Non Distended and Normal Bowel Sounds
Extremities: Edema
Neurological: AO x 3
Lines: PICC
Objective Data
Lab Data
Lab Results
06/15/24 10:16
06/14/24 03:27
PT 21.4 Sec (11.4-14.6) H 06/10/24 03:18
INR 1.84 06/10/24 03:18
APTT 64.1 Sec (23.4-35.0) H 06/15/24 10:16
Estimated Creat Clear 21 ml/min 06/14/24 03:27
Lactic Acid 1.5 mmol/L (0.7-2.0) 06/09/24 16:25
Total Bilirubin 0.8 mg/dl (0.2-1.3) 06/10/24 03:18
AST 18 U/L (17-59) 06/10/24 03:18
ALT 19 U/L (0-50) 06/10/24 03:18
Alkaline Phosphatase 88 U/L (38-126) 06/10/24 03:18
C-Reactive Protein 137.60 mg/L (0.0-10.00) H 06/13/24 03:02
Most recent labs reviewed.
Micro Results:
06/09/24 11:10 Blood Culture - Final
Blood/Venous No Growth - Final Report
06/09/24 10:48 Blood Culture - Final
Blood/Venous No Growth - Final Report
06/09/24 16:25 MRSA Screen - Final
Nose No Methicillin Resistant Staphylococcus aureus isolated.
06/09/24 11:10 Urine Culture - Final
Urine NO GROWTH
06/09/24 CXR: Mild to moderate elevation of the right hemidiaphragm, stable. There is a band of increased density in the left mid to lower lung, horizontal, stable appearance from prior examination, compatible with stable atelectasis and/or scarring.
Care Review
Plan reviewed with: Physician (Dr. Mirza)
--- NOTE | 2024-06-15 16:05 | W.PN.NEPH.PH ---
Today's Communication / Plan
-
HD tomorrow
Reduced EDW as hemodynamically tolerates
Assessment/Plan
-
Impression:
Encephalopathy
Anemia with hematemesis on chronic oral anticoagulation (5.6)
History of recently diagnosed atrial fibrillation on Eliquis
Acute renal failure
Hyperkalemia
Metabolic acidosis (gapped and non gapped)
History of bilateral cellulitis and discitis on cefepime
History of alcohol use
Chronic lymphedema
Plan:
Acute kidney injury
-Likely prerenally mediated in setting of hypotension and acute anemia due to GI bleed
Also he has been on cefepime since 05/27, no eosinophilia noted on admit, UA WBC only 3-5
HD initiated on 06/10
echevarria removed and incontinent of urine -suspect he is still oliguric
would continue HD for now, schedule tomorrow
if no renal recovery noted need to change to tunneled HD catheter : However patient is having extreme anxiety and is unable to move his bed due to severe back pain, will readdress possibly for Wednesday exchange of catheter to tunneled site
Currently there is no evidence of any recovery as his creatinine numbers continue to rebound between dialysis treatments
Now back on heparin
Need to reduce dry weight as hemodynamically tolerated given profound edema
d/w and nursing
-
-
Date of Service: June 15, 2024
CC / HPI / ROS
-
Chief Complaint:
Acute kidney
History of Present Illness:
Acute kidney injury now dialysis dependent
Hemodynamically stable
Hemoglobin at 8.5 stable
Review of Systems:
? urine output
Patient mental status -more awake and conversational, very anxious
Patient is still not at mental status baseline
Labs
-
Labs:
WBC 2.6 10^3/uL (4.8-10.8) L 06/15/24 10:16
RBC 2.95 10^6/uL (4.70-6.10) L 06/15/24 10:16
Hgb 8.5 g/dL (13.0-18.0) L 06/15/24 10:16
Hct 25.9 % (39.0-52.0) L 06/15/24 10:16
Plt Count 147 10^3/uL (130-400) 06/15/24 10:16
Sodium 138 mmol/L (135-145) 06/14/24 03:27
Potassium 4.3 mmol/L (3.5-5.1) 06/14/24 03:27
Chloride 99 mmol/L (98-107) 06/14/24 03:27
Carbon Dioxide 26 mmol/L (22-30) 06/14/24 03:27
BUN 72 mg/dl (9-20) H 06/14/24 03:27
Creatinine 4.0 mg/dL (0.7-1.3) H 06/14/24 03:27
eGFR 14.78 06/14/24 03:27
Glucose 128 mg/dl (70-99) H 06/14/24 03:27
Calcium 8.4 mg/dl (8.4-10.2) 06/14/24 03:27
Phosphorus 5.3 mg/dl (2.5-4.5) H 06/12/24 03:15
Ejg-Q-Wxdgurhcgld Pept > 06993 pg/ml 06/12/24 03:15
Albumin 2.7 g/dl (3.5-5.0) L 06/10/24 03:18
Physical Exam
-
Vital Signs:
Vital Signs
Temp Pulse Resp BP Pulse Ox
97.8 F 103 22 113/65 94
06/15/24 11:38 06/15/24 11:38 06/15/24 11:38 06/15/24 11:38 06/15/24 11:38
Cardiovascular:: Regular rate and rhythm
Respiratory:: Bilateral: Coarse (decreased)
Lung Excursion:: Normal
Abdomen:: Nontender and Soft
Bowel Sounds:: Decreased
Extremity Edema:: +3: Bilateral:
Echevarria Catheter: No
[2024-06-15] MEDS: INVANZ 55 MG IV (16:06)
[2024-06-15 17:37] LABS: Glucose - Point of Care 145 mg/dl (70-99)
--- NOTE | 2024-06-15 18:44 | PTCARENOTE ---
2nd PTT drawn, lab did not notify RN that first PTT tube was not filled enough.
--- NOTE | 2024-06-15 20:25 | PTCARENOTE ---
Lab resulted PTT at 66.6. heparin gtt rate changed; shortly after rate change, lab called and said they have to cancel the PTT. Lab needs to be redrawn. This RN put heparin gtt on hold. Will notify provider.
[2024-06-15 21:07] LABS: APTT 48.5 Sec (23.4-35.0)
[2024-06-15 21:22] LABS: Glucose - Point of Care 159 mg/dl (70-99)
[2024-06-15] MEDS: ATIVAN 0.5 MG PO (21:28)
[2024-06-15] MEDS: TYLENOL PO (23:15)
[2024-06-16] VITALS (8 sets, daily range): BP systolic 125–172; BP diastolic 78–91; PULSE 118–121; O2SAT 95–98
--- NOTE | 2024-06-16 03:56 | PTCARENOTE ---
Patient alert with confusion. Prior to administration of HS Ativan, patient AAO x 3. Post administration of Ativan, patient disoriented with visual hallucinations. All safety measures in places with hourly rounding. Q 2 hour turns--patient refusing
due to back pain. Incontinence care completed. Heparin gtt infusing at 17 ml/hr. Awaiting PTT result for titration. Foot pumps on and working. Bed in lowest position. Call bowling and personal belongings within reach.
[2024-06-16 04:06] LABS: APTT 49.9 Sec (23.4-35.0)
[2024-06-16 04:13] LABS: Blood Urea Nitrogen 54 mg/dl (9-20); Calcium 8.1 mg/dl (8.4-10.2); Carbon Dioxide 27 mmol/L (22-30); Chloride 100 mmol/L (98-107); Estimated Creatinine Clearance 23 ml/min; Glucose 116 mg/dl (70-99); Potassium 3.8 mmol/L (3.5-5.1); Sodium 137 mmol/L (135-145); eGFR 15.72
[2024-06-16 04:37] LABS: Hematocrit 25.7 % (39.0-52.0); Hemoglobin 8.5 g/dL (13.0-18.0); Mean Corp Hgb Conc. 33.1 g/dL (33.0-37.0); Mean Corpuscular Hgb 28.9 pg (27.0-31.0); Mean Corpuscular Volume 87.4 fL (80.0-94.0); Mean Platelet Volume 10.5 fL (7.4-10.4); Platelet Count 159 10^3/uL (130-400); Red Blood Cell Count 2.94 10^6/uL (4.70-6.10); Red Cell Dist. Width 17.2 % (11.5-14.5); White Blood Cell Count 3.1 10^3/uL (4.8-10.8)
--- NOTE | 2024-06-16 05:26 | W.PN.UPDATE ---
Update Note
Progress Note Update
RN reports that after nightime ativan pt noted to be more confused w/ hallucinations. Prior to this was AAOx3. Will d/c
HR elevated this am to 140s. Iv lopressor changed to po yesterday. Will add back iv but make prn.
--- NOTE | 2024-06-16 05:30 | PTCARENOTE ---
0510: Provider notified, by this RN, regarding patient's HR sustaining in 140s--Afib RVR. This RN suggested IV Lopressor. Provider to review patient's chart.
0520: per provider, two physicians' notes dictate 'increase toprol to bid' yet, no new orders. Overnight provider ordered PRN IV Lopressor and adjusted scheduled Toprol XL to BID.
[2024-06-16 07:34] LABS: Glucose - Point of Care 119 mg/dl (70-99)
[2024-06-16] MEDS: NOVOLOG FLEXPEN-LOW RESISTANCE SC ×3 (08:24→17:02)
[2024-06-16] MEDS: LIDOCAINE 4% PATCH 1 PATCH TOPICAL (08:26)
[2024-06-16] MEDS: NSS (PRESERVATIVE FREE) 10 ML IV ×2 (08:28→20:22)
[2024-06-16] MEDS: TYLENOL 1000 MG PO ×2 (08:28→20:23)
[2024-06-16] MEDS: PROTONIX IV 40 MG IV ×2 (08:28→20:21)
[2024-06-16] MEDS: TOPROL XL 50 MG PO ×2 (08:36→20:23)
--- NOTE | 2024-06-16 08:44 | W.PN.HOSP.TC ---
Today's Communication/Plan
-
HGB stable in last 3 days on IV heparin gtt
Increase BB to better control HR and BP
c/w PT /OT
Will d/w psychiatrist regarding nighttime insomnia/ confusion.
Assessment / Plan
Assessment / Plan
Physical Exam
General: chronically ill looking, not in respiratory distress
HEENT: Normocephalic
Respiratory: limited, no wheezes
Cardiac: S1/S2
GI: Soft, not distended, unable to respond if tenderness or not
Musculoskeletal: 2+ edema in bilateral lower extremities
Skin: Warm. Dry.
Neuro: Awake,better alertness and oriented, seems to be approaching his baseline, followed simple commands.
Psych: Confused
Assessment/Plan
74 years old male presented with altered mentation and was found to have signs of shock with recent GI bleeding/hematemesis
#Hemorrhagic shock secondary to GI bleeding/hematemesis leading to acute blood loss anemia associated with Eliquis, likely upper GI bleeding from history
#Coagulopathy s/p Kcentra
Abdominal x ray showed moderate fecal material in the colon. No free air.
Patient received a total of 5 units of PRBCs so far
Continue IV Protonix 40 mg BID
Started on oral diet per GI recommendations.
Received reversal agents in ER
Follow-up with GI and ICU doctors recommendations, pt will need EGD
Per GI: His hemoglobin has remained stable with supportive care. Ideally, would proceed with endoscopy at some point in his hospitalization, however, patient's is hesitant to proceed at this time or possibly at all during admission.
Held oral anticoagulants (hold home Eliquis) and antiplatelets. d/w GI 4/, ok to use IV heparin gtt and monitor closely
d/w and pt about upper EGD, they declined at present time.
# Acute on chronic low back pain.
This issue seems to be the driving discomfort for the patient. He reports less pain. No fever or leukocytosis. Blood culture is negative
Increased Tylenol TID ( high dose) to QID, trying to avoid IV Dilaudid PRN.
# Toxic metabolic encephalopathy
He had worsening confusion ( reported by night nurse) after taking Ativan last night. Hard to tell because patient has been having night time confusion/ delirium and screaming since admission. I still think his mentation continues to improve. I
agree to stop benzo although he was on Xanax before admission, we can use low dose Zoloft or Seroquel to help with insomnia, will d/w psychiatrist.
Patient is following commands, answering questions, sometimes forgetful
Non focal on exam.
CT head on admission: no evidence for acute intracranial abnormality.
#Recent septic shock and treatment for bilateral lower extremity cellulitis, on IV cefepime.
#Possible L2/L3 discitis on 05/27/24 MRI, present on admission
Plan was to do cefepime x 6 weeks through 07/06/24 but patient developed leukopenia, switched to Ertapenem.
Chest x-ray to visualize chest and right PICC line. No signs of erythema/swelling around PICC line
Consulted ID, appreciate input
#Severe acute kidney injury(likely prerenal)/hyperkalemia/anion gap metabolic acidosis (due to lactic acidosis and CLIFF)
#Azotemia suspected due to upper GI bleed and acute kidney injury
Anuric renal failure
Held diuretics, metformin, blood pressure medication on admission.
Patient seems to have chronic kidney disease stage IIIb from previous records
Baseline creatinine is 1.3 to 1.6
Despite IV fluids and red blood cell transfusion, renal function hasn't really improved -- so dialysis started 06/10
Abraham catheter, removed with lack of Output
Patient received IV sodium bicarbonate for acidosis, now getting dialysis.
Close monitoring of renal function/potassium
Consulted nephrology, appreciate input -
#Recent new onset paroxysmal atrial fibrillation
BP improved, stop IV metoprolol, change to oral Toprol, will do BID per reefer engineer recommendation
EKG consistent with atrial fibrillation.
Holding Eliquis and reversal with prothrombin complex concentrate due to GI bleeding, also holding aspirin per cardiology.
Held Atenolol in setting of hypotension
Recent echo showed LVEF 65 to 70%, trace TR, biatrial dilatation, mild MR.
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
Cardiology consultation recommendations appreciated
# Hyponatremia
#Type 2 Diabetes Mellitus
Hold metformin
Add insulin sliding scale
#History of primary hypertension. Improved BP, Resuming BB
#Recent hospitalization with incidental finding of proximal R thigh mass: 6.1 x 3.3 x 4.3cm solid lesion with internal vascularity in the proximal right thigh with differential including suspicious lymph node or soft tissue neoplasm. Patient and
were aware of it.
#Elevated proBNP
-proBNP 50734
-Volume removal via dialysis per nephrology
#Morbid Obesity
#History of stage II pressure coccygeal area injury
# Chronic history of bilateral lower extremity lymphedema
# History of alcohol use. No history of recent alcohol intake
#History of asthma on Dulera 200mcg BID at home with rescue albuterol - not currently having an exacerbation
#History of restrictive lung disease with post-bronchodilator FVC of 1.1L / 30% predicted via spirometry from 04/05/2024
# Significant BLE lymphedema
-Continue wound care and compression
Code Status: Full Code
DVT Prophylaxis: SCDs (lens finisher agreed that patient can get SCDs)
Total time spent to see the patient, examine the patient, review data and lab result, discussed treatment plan with family/patient, , consultants,nursing staff around 57minutes
Anticipated Discharge: > 48 hours
Subjective/Interval History
-
Date of Service: June 16, 2024
Had confusion at night
Less back pain
Objective Data
-
Labs:
Laboratory Results
06/15/24 06/15/24 06/16/24
19:19 20:45 03:25
WBC 3.1 L
Hgb 8.5 L
Hct 25.7 L
Plt Count 159
APTT Cancelled 48.5 H 49.9 H
Sodium 137
Potassium 3.8
Chloride 100
Carbon Dioxide 27
BUN 54 H
Creatinine 3.8 H
Glucose 116 H
Calcium 8.1 L
06/16/24
10:34
WBC
Hgb
Hct
Plt Count
APTT Pending
Sodium
Potassium
Chloride
Carbon Dioxide
BUN
Creatinine
Glucose
Calcium
Vital Signs:
Vital Signs
Temp Pulse Resp BP Pulse Ox
98.5 F 117 14 125/88 98
06/16/24 03:00 06/16/24 03:00 06/16/24 03:00 06/16/24 03:00 06/16/24 03:00
I&O
06/15/24 06/16/24 06/17/24
06:59 06:59 06:59
Intake Total 580 / 580 1120 / 1120
Balance 580 / 580 1120 / 1120
[2024-06-16 10:59] LABS: APTT 54.1 Sec (23.4-35.0)
[2024-06-16] MEDS: DESENEX/MITRAZOL/ZEASORB 1 APPLIC TOPICAL ×2 (11:50→20:20)
[2024-06-16] MEDS: HYDROPHOR 1 APPLIC TOPICAL (11:50)
[2024-06-16 12:05] LABS: Glucose - Point of Care 125 mg/dl (70-99)
--- NOTE | 2024-06-16 12:19 | W.PN.GI.CBS2 ---
Today's Communication / Plan
-
Hemoglobin stable on heparin gtt. declining EGD. GI will sign off, please call back with questions or concern for active bleeding.
Assessment / Plan
-
1. GI bleed: With coffee-ground emesis and initial melena, in the setting of anticoagulation and uremia with acute renal failure and septic shock with hospital course c/b toxic metabolic encephalopathy and afib, now status post DDAVP, Kcentra, no
further significant gross bleeding. Likely stasis/atony from acute renal failure/uremia with gastritis and esophagitis, less likely peptic ulcer disease.
At this point he has no further significant gross bleeding, though still has anuric failure with uremia which is slowly improving, continuing with hemodialysis. His hemoglobin has remained stable with supportive care. Ideally, would proceed with
endoscopy at some point in his hospitalization, however, patient's has declined. Dr. Mirza discussed again today with , as this would be an ideal window of time to proceed as he is currently on a heparin gtt. She again declines, as no
evidence of active bleeding. She wishes to keep him on heparin gtt over the weekend and continue to monitor, she is unsure if she wants him to even transition to PO anticoagulation. Ultimately, it is her/patient's decision on what care they would
like to receive.
Given no evidence of active bleeding/refusal to move forward with EGD, GI will sign off. Please call back if evidence of active bleeding or if patient/ would like to proceed with EGD prior to discharge.
Subjective
Subjective
Date of Service: June 16, 2024
Patient seen in follow-up this morning, concern for worsening confusion/mental status change by night RN, likely . Overall, his mental status has significantly improved since initial presentation. Hgb remains stable on heparin gtt.
Objective
Data Reviewed
Laboratory Data:
Laboratory Results
06/16/24 03:25
06/16/24 03:25
Laboratory Results
PT 21.4 Sec (11.4-14.6) H 06/10/24 03:18
INR 1.84 06/10/24 03:18
APTT 54.1 Sec (23.4-35.0) H 06/16/24 10:38
Phosphorus 5.3 mg/dl (2.5-4.5) H 06/12/24 03:15
Magnesium 1.9 mg/dl (1.6-2.3) 06/12/24 03:15
Total Bilirubin 0.8 mg/dl (0.2-1.3) 06/10/24 03:18
AST 18 U/L (17-59) 06/10/24 03:18
ALT 19 U/L (0-50) 06/10/24 03:18
Alkaline Phosphatase 88 U/L (38-126) 06/10/24 03:18
Vital Signs and I&O:
Vital Signs
Temp Pulse Resp BP Pulse Ox
97.6 F 115 24 144/89 96
06/16/24 11:00 06/16/24 11:00 06/16/24 11:00 06/16/24 11:00 06/16/24 11:00
I&O
06/15/24 06/16/24 06/17/24
06:59 06:59 06:59
Intake Total 580 / 580 1120 / 1120
Balance 580 / 580 1120 / 1120
Physical Exam
Physical Exam
HEENT: Anicteric, Moist mucous membranes and Other (chronically-ill appearing)
GI: Soft, Non Distended, Non Tender and Other
--- NOTE | 2024-06-16 12:29 | W.PN.ID1 ---
Date of Service
Date of Service: June 16, 2024
Today's Communication
- Continue Ertapenem 500mg IV q24 through 07/06/24. (previously on cefepime)
- Infusion sheet submitted to case management.
Assessment / Plan
# Acute Leukopenia, improving
- cefepime dc'd 06/14.
- Follow wbc.
# Possible L2/L3 discitis on 05/27/24 MRI, present on admission (pt had refused biopsy)
- Continue Ertapenem 500mg IV q24 through 07/06/24. (previously on cefepime)
- Infusion sheet submitted to case management.
# CLIFF - started HD 06/10
# s/p UGIB with blood loss anemia
# s/p Low BP due to blood loss
# Significant chronic BLE lymphedema
-Continue compression
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
Diabetes mellitus
Asthma
Afib on eliquis
Dyslipidemia
Hypertension
Class III obesity BMI 42
Possible L2/L3 discitis on IV cefepime through 07/06/24
Bilateral lower extremity lymphedema - goes to lymphedema PT
Chief Complaint
-: Other (possible discitis)
Subjective / Review of Systems
Had hallucination last night after Ativan. Was slightly confused this am,per .
Pt reports back pain better with steroid.
Vital Signs / Physical Exam
Vital Signs
Vital Signs
Temp Pulse Resp BP Pulse Ox
97.6 F 115 24 144/89 96
06/16/24 11:00 06/16/24 11:00 06/16/24 11:00 06/16/24 11:00 06/16/24 11:00
Physical Exam
Constitutional: Chronically Ill
Cardiovascular: Irregular Rate and Other (tachy)
Pulmonary: Clear (anteriorly)
Gastrointestinal: Soft, Non Tender, Non Distended and Normal Bowel Sounds
Extremities: Edema
Neurological: Awake and Alert
Lines: PICC
Objective Data
Lab Data
Lab Results
06/16/24 03:25
06/16/24 03:25
PT 21.4 Sec (11.4-14.6) H 06/10/24 03:18
INR 1.84 06/10/24 03:18
APTT 54.1 Sec (23.4-35.0) H 06/16/24 10:38
Estimated Creat Clear 23 ml/min 06/16/24 03:25
Lactic Acid 1.5 mmol/L (0.7-2.0) 06/09/24 16:25
Total Bilirubin 0.8 mg/dl (0.2-1.3) 06/10/24 03:18
AST 18 U/L (17-59) 06/10/24 03:18
ALT 19 U/L (0-50) 06/10/24 03:18
Alkaline Phosphatase 88 U/L (38-126) 06/10/24 03:18
C-Reactive Protein 137.60 mg/L (0.0-10.00) H 06/13/24 03:02
Most recent labs reviewed.
Micro Results:
06/09/24 11:10 Blood Culture - Final
Blood/Venous No Growth - Final Report
06/09/24 10:48 Blood Culture - Final
Blood/Venous No Growth - Final Report
06/09/24 16:25 MRSA Screen - Final
Nose No Methicillin Resistant Staphylococcus aureus isolated.
06/09/24 11:10 Urine Culture - Final
Urine NO GROWTH
06/09/24 CXR: Mild to moderate elevation of the right hemidiaphragm, stable. There is a band of increased density in the left mid to lower lung, horizontal, stable appearance from prior examination, compatible with stable atelectasis and/or scarring.
--- NOTE | 2024-06-16 14:52 | W.PN.CARDCBS ---
Addendum entered and electronically signed by Karthik Viveros MD 06/16/24 15:20:
I saw and examined the patient.
The SANITATION ENGINEER or PA's note was reviewed and I agree with the note.
Comment: General: Well developed, well nourished in NAD.
Neck: Supple, no JVD, HJR, carotids +2 B/L, no bruits bilaterally.
Heart: Non displaced PMI, irregular, no murmurs, No S3, S4, no rubs.
Lungs: Clear to auscultation bilaterally, no wheeze, rhonchi, rubs bilaterally,
normal expiratory phase.
Extremities: No clubbing, cyanosis or edema bilaterally.
Neuro: Grossly nonfocal, awake, alert and oriented x3.
Discussed with primary service. Plan is IV heparin for the weekend and if tolerates consider restarting anticoagulation 06/19/2024. Increase Toprol to 50 mg twice daily for rate control of A-fib. Currently getting hemodialysis
Original Note:
Today's Communication / Plan
-
Continue IV heparin through weekend then consider restarting anticoagulation
Continue to monitor hemoglobin
Increase Toprol to 50 mg twice a day for tachycardia
Hemodialysis today
Impression / Plan
-
.
Upper Tier: None, initially seen by Dr Vargas
Impression:
Presentation 06/09/2024 with altered mental status
TME
Hematemesis
Hemorrhagic shock with acute on chronic anemia, suspected GI bleeding
ARF
Hyperkalemia
Metabolic acidosis
Admission to 05/20-05/30/24 for sepsis, B/L cellulitis, ARF
Atrial fibrillation, diagnosed 05/2024
Hyponatremia
Morbid obesity
Suspected COLT
Type 2 diabetes mellitus
Hyperlipidemia
Hypertension
Lymphedema
B/L LE wounds
Alcohol use disorder
Poor self care
Proximal right thigh mass
ECHO 05/20/24: EF 65-70%, mod cLVH, mild RV enlargement, biatrial dilation, mild MR, trace TR, PAP 41mmHg, IV dilated, does not collapse, prominent anterior fat pad present, trivial pericardial effusion noted
Plan:
Presented 06/01/2024 with altered mental status
-afib is recent diagnosis 05/2024.
-HRs elevate/poorly controlled intermittently upon review of telemetry with rates up into the 120s despite initiation of Toprol 50 mg daily in a.m. on 06/15/2024. Agree with increasing Toprol to 50 mg twice a day. Continue to monitor heart rate on
telemetry. Can utilize IV Lopressor as needed for tachycardia. Of note patient was on atenolol 25 mg daily prior to admission.
-hgb stable in 8.5-8.7 range. GI following, GI bleed felt to be secondary to uremia. ideally would complete EGD prior to resuming full OAC, however patient and feel 'there is no need for that' after discussing with GI. [id number] score of 4 for
age, HTN, DM. HASBLED score calculated to be 6, high risk for bleeding.
currently on IV heparin. Per discussion with primary service, GI plan is to continue heparin throughout weekend and if hemoglobin remained stable then will transition to oral anticoagulation on 06/19/2024.
consider OP evaluation for watchman as does not appear to be good fdc OAC candidate but patient has to be agreeable and tolerate oral anticoagulation prior to undergoing watchman.
Echo 05/20/24 with preserved EF, RV is dilated
-End-stage renal disease, started on HD this admission, continue volume mgmt through nephro.
-mental status overall improving from admission.
-B/L LE cellulitis and discitis on MRI 05/27/2024. Continue Ertapenem 500mg IV q24 through 07/06/24 per ID
-d/w patient and at bedside
Progress Note - Upper Tier
Subjective
Date of Service: June 16, 2024
Patient seen and examined. Patient currently on dialysis and resting comfortably.
Objective
Labs:
06/16/24 03:25
06/16/24 03:25
Labs
Hgb 8.5 g/dL (13.0-18.0) L 06/16/24 03:25
Hct 25.7 % (39.0-52.0) L 06/16/24 03:25
Plt Count 159 10^3/uL (130-400) 06/16/24 03:25
PT 21.4 Sec (11.4-14.6) H 06/10/24 03:18
INR 1.84 06/10/24 03:18
APTT 54.1 Sec (23.4-35.0) H 06/16/24 10:38
Sodium 137 mmol/L (135-145) 06/16/24 03:25
Potassium 3.8 mmol/L (3.5-5.1) 06/16/24 03:25
BUN 54 mg/dl (9-20) H 06/16/24 03:25
Creatinine 3.8 mg/dL (0.7-1.3) H 06/16/24 03:25
Glucose 116 mg/dl (70-99) H 06/16/24 03:25
Vital Signs and I&O:
Vital Signs
Temp Pulse Resp BP Pulse Ox
97.6 F 115 24 144/89 96
06/16/24 11:00 06/16/24 11:00 06/16/24 11:00 06/16/24 11:00 06/16/24 11:00
Vital Signs
Temp Pulse Resp BP Pulse Ox
97.6 F 115 24 144/89 96
06/16/24 11:00 06/16/24 11:00 06/16/24 11:00 06/16/24 11:00 06/16/24 11:00
Intake & Output
06/14/24 06/15/24 06/16/24 06/17/24
06:59 06:59 06:59 06:59
Intake Total 200 / 200 580 / 580 1120 / 1120
Balance 200 / 200 580 / 580 1120 / 1120
Physical Exam
Physical Exam
GEN: Sleeping but awakes and answers questions on dialysis
HEENT: supple, anicteric, mmm
LUNGS: CTA B/L, no wheezes/rales
CV: Irreg irreg, slightly tachycardic, S1/S2, no murmur
ABD: soft, BS+, NT/ND
EXT: No cyanosis, clubbing. B/L LE with ernie wraps in place
NEURO: Gross non-focal
SKIN: Warm, pink, dry. No rash.
--- NOTE | 2024-06-16 14:53 | CM ---
assistant finance manager reviewed patient's chart and there is still no final decision on HD, referral sent [place] [facility] [place] [facility] [place] as requested by patient and spouse for possible rehab placement, will follow script for IV ABX placed on chart.
Plan; Await final decision on HD, referral sent to [facility].
--- NOTE | 2024-06-16 15:27 | W.PN.NEPH.HD ---
Assessment
-
Seen this time treatment. Extra ultrafiltration tomorrow for volume
Progress Note - Hemodialysis
-
Date of Service: June 16, 2024
Duration: 30 minutes and 3 hours
Potassium Bath: 3
Calcium Bath: 2.5
Opti-Dialyzer: 160
Ultrafiltration: Other (2kg)
Blood Flow: 400
Dialysate Flow: 600
Heparin: None (to be placed on heparin gtt)
EPO: 10K
[2024-06-16 16:57] LABS: Glucose - Point of Care 106 mg/dl (70-99)
[2024-06-16] MEDS: TYLENOL PO ×2 (17:01→20:20)
[2024-06-16] MEDS: INVANZ 55 MG IV (17:10)
[2024-06-16 18:06] LABS: APTT 94.9 Sec (23.4-35.0)
[2024-06-16] MEDS: MELATONIN 5 MG PO (20:25)
[2024-06-16 21:33] LABS: Glucose - Point of Care 112 mg/dl (70-99)
[2024-06-17 02:25] LABS: APTT 92.9 Sec (23.4-35.0)
[2024-06-17] MEDS: HEPARIN 25000 UNITS/250 ML IV ×2 (05:29→19:56)
[2024-06-17 06:00] VITALS: BMI 42.0
[2024-06-17 07:53] VITALS: BP 134/64
[2024-06-17] MEDS: TOPROL XL 50 MG PO ×2 (08:01→20:31)
--- NOTE | 2024-06-17 08:05 | PTCARENOTE ---
per DR Mirza, pt was given morning metoprolol while on dialysis as pt became tachycardic yesterday while receiving dialysis treatment
[2024-06-17] MEDS: NOVOLOG FLEXPEN-LOW RESISTANCE SC ×3 (08:28→16:23)
--- NOTE | 2024-06-17 08:28 | PTCARENOTE ---
Addendum entered by Solange Lynch RN 06/17/24 08:30:
pt did not wish to be stuck again.
Original Note:
PCT did morning blood sugar, states pt's id band did not scan but showed RN result of 109 on machine. not treated secondary to being out of parameter
--- NOTE | 2024-06-17 09:52 | W.PN.HOSP.TC ---
Addendum entered and electronically signed by Shahzad Mirza MD 06/17/24 13:36:
Addendum
I was called regarding concern of right upper extremity swelling. I examined the upper extremity, right side. Looks swollen as before. Soft and not tense edema. Exam consistent with third spacing/dependent edema, good peripheral pulses. No
tenderness or unusual erythema noted in the arm. Will continue to monitor. Doubt VTE event. Patient tends to lean toward the right side most of the time. Advised to elevate the arm using pillows.
End
Original Note:
Today's Communication/Plan
-
IV Heparin gtt
IV Ertapenem
Tylenol, lidocaine
Encourage incentive Spirometry
Assessment / Plan
Assessment / Plan
Physical Exam
General: chronically ill looking, not in respiratory distress
HEENT: Normocephalic
Respiratory: limited, no wheezes
Cardiac: S1/S2
GI: Soft, not distended, unable to respond if tenderness or not
Musculoskeletal: 2+ edema in bilateral lower extremities
Skin: Warm. Dry.
Neuro: Awake,better alertness and oriented, seems to be approaching his baseline, followed simple commands.
Psych: Confused
Assessment/Plan
74 years old male presented with altered mentation and was found to have signs of shock with recent GI bleeding/hematemesis
#Hemorrhagic shock secondary to GI bleeding/hematemesis leading to acute blood loss anemia associated with Eliquis, likely upper GI bleeding from history
#Coagulopathy s/p Kcentra
Resolved. Patient received a total of 5 units of PRBCs. Received reversal agents in ER. HGB stabilized.
Follow- up abdominal x ray showed moderate fecal material in the colon. No free air. On Bowel regimen.
Now on IV Protonix 40 mg BID
Started on oral diet per GI recommendations.
Follow-up with GI and ICU doctors recommendations, pt will need EGD. and patient declined EGD due to stability of the patient and lack of active GI bleeding.
Held oral anticoagulants (hold home Eliquis) and antiplatelets. Now on IV heparin gtt. Last discussion with pt and was to c/w IV Heparin gtt over the weekend and re-visit oral AC options next week.
# Acute on chronic low back pain.
This issue seemed to be the driving discomfort for the patient. He reports now less pain. No fever or leukocytosis. Blood culture is negative
Increased Tylenol TID ( high dose) to QID, trying to avoid IV Dilaudid PRN as possible
# Toxic metabolic encephalopathy
He had worsening confusion ( reported by night nurse) after taking Ativan last night. Hard to tell because patient has been having night time confusion/ delirium and screaming since admission. I still think his mentation continues to improve. I
agree to stop benzo although he was on Xanax before admission,d/w psychiatrist on phone, trial of melatonin, if it does not work, we can use low dose Ambien.
Patient is following commands, answering questions, sometimes forgetful
Non focal on exam.
CT head on admission: no evidence for acute intracranial abnormality.
#Recent septic shock and treatment for bilateral lower extremity cellulitis, on IV cefepime.
#Possible L2/L3 discitis on 05/27/24 MRI, present on admission
Plan was to do cefepime x 6 weeks through 07/06/24 but patient developed leukopenia, switched to Ertapenem.
Chest x-ray No signs of erythema/swelling around PICC line
Consulted ID, appreciate input
#Severe acute kidney injury(likely prerenal)/hyperkalemia/anion gap metabolic acidosis (due to lactic acidosis and CLIFF)
#Azotemia suspected due to upper GI bleed and acute kidney injury
Anuric renal failure
Held diuretics, metformin, blood pressure medication on admission.
Patient seems to have chronic kidney disease stage IIIb from previous records
Baseline creatinine is 1.3 to 1.6
Despite IV fluids and red blood cell transfusion, renal function hasn't really improved -- so dialysis started 06/10
Abraham catheter, removed with lack of Output
Patient received IV sodium bicarbonate for acidosis, now getting dialysis.
Close monitoring of renal function/potassium
Consulted nephrology, appreciate input -
#Recent new onset paroxysmal atrial fibrillation
BP improved, stop IV metoprolol, change to oral Toprol, will do BID per highway patrol commander recommendation
EKG consistent with atrial fibrillation.
Holding Eliquis and reversal with prothrombin complex concentrate due to GI bleeding, also holding aspirin per cardiology.
Held Atenolol in setting of hypotension, now on Toprol with good BP
Recent echo showed LVEF 65 to 70%, trace TR, biatrial dilatation, mild MR.
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
Cardiology consultation recommendations appreciated
# Dysphagia, d/w speech , now on IDDS-6
# Hyponatremia
#Type 2 Diabetes Mellitus
Hold metformin
Added insulin sliding scale
#History of primary hypertension. Improved BP, Resuming BB
#Recent hospitalization with incidental finding of proximal R thigh mass: 6.1 x 3.3 x 4.3cm solid lesion with internal vascularity in the proximal right thigh with differential including suspicious lymph node or soft tissue neoplasm. Patient and
were aware of it.
#Elevated proBNP
-proBNP 98476
-Volume removal via dialysis per nephrology
#Morbid Obesity
#History of stage II pressure coccygeal area injury
# Chronic history of bilateral lower extremity lymphedema
# History of alcohol use. No history of recent alcohol intake
#History of asthma on Dulera 200mcg BID at home with rescue albuterol - not currently having an exacerbation
#History of restrictive lung disease with post-bronchodilator FVC of 1.1L / 30% predicted via spirometry from 04/05/2024
# Significant BLE lymphedema
-Continue wound care and compression
Code Status: Full Code
DVT Prophylaxis: SCDs (leather case finisher agreed that patient can get SCDs)
Total time spent to see the patient, examine the patient, review data and lab result, discussed treatment plan with family/patient, , consultants,nursing staff around 57minutes
Anticipated Discharge: > 48 hours
Subjective/Interval History
-
Date of Service: June 17, 2024
No chest pain
No fevers
Objective Data
-
Labs:
Laboratory Results
06/17/24
02:07
APTT 92.9 H
Vital Signs:
Vital Signs
Temp Pulse Resp BP Pulse Ox
98.5 F 108 16 134/64 100
06/17/24 07:53 06/17/24 08:01 06/17/24 07:53 06/17/24 08:01 06/17/24 07:53
I&O
06/16/24 06/17/24 06/18/24
06:59 06:59 06:59
Intake Total 1120 / 1120 1080 / 1080
Balance 1120 / 1120 1080 / 1080
--- NOTE | 2024-06-17 10:43 | PTCARENOTE ---
IV nurse upon assessment noted right hand seems more swollen than left. right arm has PICC line. Dr Mirza aware and will order ultrasound
--- NOTE | 2024-06-17 10:45 | VATNOTE ---
VAT rounds: Noted right hand swelling where the picc is in place. Recommended us of the right arm to r/o DVT. Primary RN made aware. will continue to monitor closely.
[2024-06-17 11:35] LABS: Glucose - Point of Care 118 mg/dl (70-99)
[2024-06-17 11:41] VITALS: BP 144/57
[2024-06-17] MEDS: NSS (PRESERVATIVE FREE) 10 ML IV ×2 (11:41→20:31)
[2024-06-17] MEDS: TYLENOL 1000 MG PO ×3 (11:41→20:33)
[2024-06-17] MEDS: LIDOCAINE 4% PATCH TOPICAL ×2 (11:41→11:52)
[2024-06-17] MEDS: PROTONIX IV 40 MG IV ×2 (11:41→20:31)
[2024-06-17] MEDS: HYDROPHOR 1 APPLIC TOPICAL (11:42)
[2024-06-17] MEDS: DESENEX/MITRAZOL/ZEASORB 1 APPLIC TOPICAL ×2 (11:42→20:38)
[2024-06-17] MEDS: TYLENOL PO ×2 (13:04→16:02)
[2024-06-17] MEDS: MIRALAX PO (14:19)
--- NOTE | 2024-06-17 14:19 | W.PN.NEPH.HD ---
Progress Note - Hemodialysis
-
Date of Service: June 17, 2024
Duration: 30 minutes and 3 hours
Potassium Bath: 3
Calcium Bath: 2.5
Opti-Dialyzer: 160
Ultrafiltration: Other (2kg)
Blood Flow: 400
Dialysate Flow: 600
Heparin: None (to be placed on heparin gtt)
[2024-06-17 15:02] VITALS: BP 137/50
[2024-06-17] MEDS: INVANZ 55 MG IV (16:03)
[2024-06-17 16:23] LABS: Glucose - Point of Care 126 mg/dl (70-99)
[2024-06-17 19:00] VITALS: BP 115/41
[2024-06-17] MEDS: MELATONIN 5 MG PO (20:31)
[2024-06-17 22:04] LABS: Glucose - Point of Care 143 mg/dl (70-99)
[2024-06-17 23:00] VITALS: BP 132/52
[2024-06-18] MEDS: DILAUDID 0.25 MG IV ×2 (00:43→05:17)
[2024-06-18 02:50] VITALS: BP 127/50
[2024-06-18 05:22] LABS: Hematocrit 26.9 % (39.0-52.0); Hemoglobin 8.4 g/dL (13.0-18.0); Mean Corp Hgb Conc. 31.2 g/dL (33.0-37.0); Mean Corpuscular Hgb 27.8 pg (27.0-31.0); Mean Corpuscular Volume 89.1 fL (80.0-94.0); Mean Platelet Volume 9.9 fL (7.4-10.4); Platelet Count 142 10^3/uL (130-400); Red Blood Cell Count 3.02 10^6/uL (4.70-6.10); Red Cell Dist. Width 16.9 % (11.5-14.5); White Blood Cell Count 5.2 10^3/uL (4.8-10.8)
[2024-06-18 05:42] LABS: APTT > 200 Sec (23.4-35.0)
--- NOTE | 2024-06-18 05:49 | PTCARENOTE ---
Critical value: PTT > 200. Per protocol, heparin gtt to be held for 2 hours. Held starting at 0545. Provider notified. Decrease in rate to be done at 0745.
[2024-06-18 06:00] VITALS: BMI 42.3
[2024-06-18 07:40] LABS: Glucose - Point of Care 135 mg/dl (70-99)
[2024-06-18 07:52] VITALS: BP 109/53
[2024-06-18] MEDS: NOVOLOG FLEXPEN-LOW RESISTANCE SC ×2 (07:55→11:34)
[2024-06-18] MEDS: TOPROL XL 50 MG PO ×2 (07:56→20:46)
[2024-06-18] MEDS: TYLENOL 1000 MG PO ×4 (07:56→21:00)
[2024-06-18] MEDS: PROTONIX IV 40 MG IV (07:57)
[2024-06-18] MEDS: LIDOCAINE 4% PATCH TOPICAL (07:57)
[2024-06-18] MEDS: NSS (PRESERVATIVE FREE) 10 ML IV (07:57)
[2024-06-18] MEDS: DESENEX/MITRAZOL/ZEASORB 1 APPLIC TOPICAL ×2 (07:58→20:45)
[2024-06-18] MEDS: HYDROPHOR 1 APPLIC TOPICAL (08:02)
--- NOTE | 2024-06-18 08:29 | W.PN.HOSP.TC ---
Today's Communication/Plan
-
c/w IV heparin
change to oral PPI
Assessment / Plan
Assessment / Plan
Physical Exam
General: not in respiratory distress, obese.
HEENT: Normocephalic
Respiratory: limited, no wheezes
Cardiac: S1/S2
GI: Soft, not distended, no tenderness.
Musculoskeletal: 2+ edema in bilateral lower extremities
Skin: Warm. Dry. + anasarca
Neuro: AAO X3, he follows commands appropriately.
Psych: Calm, no agitation.
Assessment/Plan
74 years old male presented with altered mentation and was found to have signs of shock with recent GI bleeding/hematemesis
#Hemorrhagic shock secondary to GI bleeding/hematemesis leading to acute blood loss anemia associated with Eliquis, likely upper GI bleeding from history
#Coagulopathy s/p Kcentra
Resolved. Patient received a total of 5 units of PRBCs. Received reversal agents in ER. HGB stabilized.
Follow- up abdominal x ray showed moderate fecal material in the colon. No free air. On Bowel regimen.
Now on IV Protonix 40 mg BID
Started on oral diet per GI recommendations.
Per GI and ICU doctors recommendations, pt will need EGD. and patient declined EGD due to stability of the patient and lack of active GI bleeding.
Held oral anticoagulants (hold home Eliquis) and antiplatelets. Now on IV heparin gtt. Last discussion with pt and was to c/w IV Heparin gtt over the weekend and re-visit oral AC options next week.
# Acute on chronic low back pain.
This issue seemed to be the driving discomfort for the patient. He reports now less pain. No fever or leukocytosis. Blood culture is negative
Increased Tylenol TID ( high dose) to QID, trying to avoid IV Dilaudid PRN as possible
# Toxic metabolic encephalopathy
Doing much better, improved. D/w psychiatrist on phone, trial of melatonin, if it does not work, we can use low dose Ambien. So far, his sleep improved with melatonin.
CT head on admission: no evidence for acute intracranial abnormality.
#Recent septic shock and treatment for bilateral lower extremity cellulitis, was on IV cefepime.
#Possible L2/L3 discitis on 05/27/24 MRI, present on admission
Plan was to do cefepime x 6 weeks through 07/06/24 but patient developed leukopenia, switched to Ertapenem.
Chest x-ray No signs of erythema/swelling around PICC line
Consulted ID, appreciate input
#Severe acute kidney injury(likely prerenal)/hyperkalemia/anion gap metabolic acidosis (due to lactic acidosis and CLIFF)
#Azotemia suspected due to upper GI bleed and acute kidney injury
Anuric renal failure
Held diuretics, metformin, blood pressure medication on admission.
Patient seems to have chronic kidney disease stage IIIb from previous records
Baseline creatinine is 1.3 to 1.6
Despite IV fluids and red blood cell transfusion, renal function hasn't really improved -- so dialysis started 06/10
Abraham catheter, removed with lack of Output
Patient received IV sodium bicarbonate for acidosis, now getting dialysis.
Close monitoring of renal function/potassium
Consulted nephrology, appreciate input -
#Recent new onset paroxysmal atrial fibrillation
BP improved, stop IV metoprolol, changed to oral Toprol.
EKG consistent with atrial fibrillation.
Holding Eliquis and reversal with prothrombin complex concentrate due to GI bleeding, also holding aspirin per cardiology.
Held Atenolol in setting of hypotension, now on Toprol with good BP
Recent echo showed LVEF 65 to 70%, trace TR, biatrial dilatation, mild MR.
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
Cardiology consultation recommendations appreciated
# Dysphagia, d/w speech , now on IDDS-6
# Hyponatremia
#Type 2 Diabetes Mellitus
Hold metformin
Added insulin sliding scale
#History of primary hypertension. Improved BP, Resuming BB
#Recent hospitalization with incidental finding of proximal R thigh mass: 6.1 x 3.3 x 4.3cm solid lesion with internal vascularity in the proximal right thigh with differential including suspicious lymph node or soft tissue neoplasm. Patient and
were aware of it.
#Elevated proBNP
-proBNP 49235
-Volume removal via dialysis per nephrology
#Morbid Obesity
#History of stage II pressure coccygeal area injury
# Chronic history of bilateral lower extremity lymphedema
# History of alcohol use. No history of recent alcohol intake
#History of asthma on Dulera 200mcg BID at home with rescue albuterol - not currently having an exacerbation
#History of restrictive lung disease with post-bronchodilator FVC of 1.1L / 30% predicted via spirometry from 04/05/2024
# Significant BLE lymphedema
-Continue wound care and compression
Code Status: Full Code
DVT Prophylaxis: SCDs (housing relocation agreed that patient can get SCDs)
Total time spent to see the patient, examine the patient, review data and lab result, discussed treatment plan with family/patient, , consultants, nursing staff around 57minutes
Anticipated Discharge: > 48 hours
Subjective/Interval History
-
Date of Service: June 18, 2024
No complaints
No chest pain or sob
Objective Data
-
Labs:
Laboratory Results
06/18/24 06/18/24
05:03 13:45
WBC 5.2
Hgb 8.4 L
Hct 26.9 L
Plt Count 142
APTT > 200 H* Pending
Vital Signs:
Vital Signs
Temp Pulse Resp BP Pulse Ox
98.5 F 87 16 109/53 100
06/18/24 07:52 06/18/24 07:56 06/18/24 07:52 06/18/24 07:56 06/18/24 07:52
I&O
06/17/24 06/18/24 06/19/24
06:59 06:59 06:59
Intake Total 1080 / 1080 960 / 960
Balance 1080 / 1080 960 / 960
[2024-06-18 11:30] LABS: Glucose - Point of Care 126 mg/dl (70-99)
[2024-06-18 11:40] VITALS: BP 147/66
--- NOTE | 2024-06-18 12:25 | W.PN.NEPH.PH ---
Today's Communication / Plan
-
Dialysis Wednesday
Assessment/Plan
-
Impression:
Encephalopathy
Anemia with hematemesis on chronic oral anticoagulation (5.6)
History of recently diagnosed atrial fibrillation on Eliquis
Acute renal failure
Hyperkalemia
Metabolic acidosis (gapped and non gapped)
History of bilateral cellulitis and discitis on cefepime
History of alcohol use
Chronic lymphedema
Plan:
Acute kidney injury
-Likely prerenally mediated in setting of hypotension and acute anemia due to GI bleed
Also he has been on cefepime since 05/27, no eosinophilia noted on admit, UA WBC only 3-5
HD initiated on 06/10
echevarria removed and incontinent of urine -he has had some improvement in urine output but not recording
if no renal recovery noted need to change to tunneled HD catheter : However patient is having extreme anxiety and is unable to move his bed due to severe back pain, may be very difficult for him to lay flat to place a permacath.
Continue to monitor for recovery creatinine continues to increase
Between treatments.
He had an extra ultrafiltration on Wednesday
Next treatment will be Wednesday
-
-
Date of Service: June 18, 2024
CC / HPI / ROS
-
Chief Complaint:
Acute kidney
History of Present Illness:
Acute kidney injury now dialysis dependent
Hemodynamically stable
Hemoglobin at 8.5 stable
Review of Systems:
? urine output
Patient mental status -more awake and conversational, very anxious
Patient is still not at mental status baseline
Labs
-
Labs:
WBC 5.2 10^3/uL (4.8-10.8) 06/18/24 05:03
RBC 3.02 10^6/uL (4.70-6.10) L 06/18/24 05:03
Hgb 8.4 g/dL (13.0-18.0) L 06/18/24 05:03
Hct 26.9 % (39.0-52.0) L 06/18/24 05:03
Plt Count 142 10^3/uL (130-400) 06/18/24 05:03
Sodium 137 mmol/L (135-145) 06/16/24 03:25
Potassium 3.8 mmol/L (3.5-5.1) 06/16/24 03:25
Chloride 100 mmol/L (98-107) 06/16/24 03:25
Carbon Dioxide 27 mmol/L (22-30) 06/16/24 03:25
BUN 54 mg/dl (9-20) H 06/16/24 03:25
Creatinine 3.8 mg/dL (0.7-1.3) H 06/16/24 03:25
eGFR 15.72 06/16/24 03:25
Glucose 116 mg/dl (70-99) H 06/16/24 03:25
Calcium 8.1 mg/dl (8.4-10.2) L 06/16/24 03:25
Phosphorus 5.3 mg/dl (2.5-4.5) H 06/12/24 03:15
Gvu-S-Vkmydnbxmar Pept > 21026 pg/ml 06/12/24 03:15
Albumin 2.7 g/dl (3.5-5.0) L 06/10/24 03:18
Physical Exam
-
Vital Signs:
Vital Signs
Temp Pulse Resp BP Pulse Ox
98.5 F 86 15 147/66 99
06/18/24 11:40 06/18/24 11:40 06/18/24 11:40 06/18/24 11:40 06/18/24 11:40
Cardiovascular:: Regular rate and rhythm
Respiratory:: Bilateral: Coarse (decreased)
Lung Excursion:: Normal
Abdomen:: Nontender and Soft
Bowel Sounds:: Decreased
Extremity Edema:: +3: Bilateral:
Echevarria Catheter: No
[2024-06-18] MEDS: HEPARIN 25000 UNITS/250 ML IV (13:33)
[2024-06-18 13:44] LABS: APTT 41.8 Sec (23.4-35.0)
[2024-06-18] MEDS: MIRALAX PO (14:37)
--- NOTE | 2024-06-18 15:01 | CM ---
CM reviewed chart, patient for dialysis tomorrow. Patient on IV antibiotics. Referral placed to [facility], will require insurance auth once medically stable. CM will continue to follow for all discharge planning needs.
Plan; referral to [facility], will need to follow up with admissions regarding bed availability, await HD, IV antibiotics.
[2024-06-18 16:16] LABS: Glucose - Point of Care 151 mg/dl (70-99)
[2024-06-18] MEDS: NOVOLOG FLEXPEN-LOW RESISTANCE 1 UNITS SC (16:47)
[2024-06-18] MEDS: INVANZ 55 MG IV (16:47)
[2024-06-18 19:20] VITALS: BP 135/60
[2024-06-18] MEDS: PROTONIX 40 MG PO (20:46)
[2024-06-18] MEDS: MELATONIN 5 MG PO (20:46)
[2024-06-18 21:34] LABS: APTT 168.8 Sec (23.4-35.0)
[2024-06-18 21:56] LABS: Glucose - Point of Care 157 mg/dl (70-99)
[2024-06-19] VITALS (9 sets, daily range): BP systolic 93–152; BP diastolic 49–72; O2SAT 100; BMI 42.0
[2024-06-19] MEDS: HEPARIN 25000 UNITS/250 ML IV ×2 (05:07→20:37)
[2024-06-19 05:28] LABS: APTT 59.3 Sec (23.4-35.0)
[2024-06-19 05:42] LABS: Blood Urea Nitrogen 50 mg/dl (9-20); Calcium 8.1 mg/dl (8.4-10.2); Carbon Dioxide 28 mmol/L (22-30); Chloride 100 mmol/L (98-107); Estimated Creatinine Clearance 17 ml/min; Glucose 124 mg/dl (70-99); Potassium 4.2 mmol/L (3.5-5.1); Sodium 134 mmol/L (135-145); eGFR 11.87
[2024-06-19 07:51] LABS: Glucose - Point of Care 112 mg/dl (70-99)
[2024-06-19] MEDS: NOVOLOG FLEXPEN-LOW RESISTANCE SC ×3 (07:51→16:54)
[2024-06-19] MEDS: DESENEX/MITRAZOL/ZEASORB 1 APPLIC TOPICAL ×2 (07:51→20:30)
[2024-06-19] MEDS: HYDROPHOR 1 APPLIC TOPICAL (07:51)
[2024-06-19] MEDS: PROTONIX 40 MG PO ×2 (07:52→20:30)
[2024-06-19] MEDS: TOPROL XL 50 MG PO (07:52)
[2024-06-19] MEDS: TYLENOL 1000 MG PO ×3 (07:52→21:26)
[2024-06-19] MEDS: LIDOCAINE 4% PATCH TOPICAL (07:57)
--- NOTE | 2024-06-19 10:50 | W.PN.CARDCBS ---
Addendum entered and electronically signed by Karthik Viveros MD 06/19/24 10:58:
Discussed with GI and primary service. Will start Xarelto 15 mg daily and discontinue IV heparin. Continue to follow hemoglobin
Original Note:
Today's Communication / Plan
-
Await decision regarding stopping heparin and changing to Xarelto 15 mg
Discussed with primary service and GI
Impression / Plan
-
.
Bench Mechanic: None, initially seen by Dr Vargas
Impression:
Presentation 06/09/2024 with altered mental status
TME
Hematemesis
Hemorrhagic shock with acute on chronic anemia, suspected GI bleeding
ARF
Hyperkalemia
Metabolic acidosis
Admission to 05/20-05/30/24 for sepsis, B/L cellulitis, ARF
Atrial fibrillation, diagnosed 05/2024
Hyponatremia
Morbid obesity
Suspected COLT
Type 2 diabetes mellitus
Hyperlipidemia
Hypertension
Lymphedema
B/L LE wounds
Alcohol use disorder
Poor self care
Proximal right thigh mass
ECHO 05/20/24: EF 65-70%, mod cLVH, mild RV enlargement, biatrial dilation, mild MR, trace TR, PAP 41mmHg, IV dilated, does not collapse, prominent anterior fat pad present, trivial pericardial effusion noted
Plan:
Heart rate control reasonable in A-fib
Has been tolerating IV heparin with relatively stable hemoglobin of 8.4-8.7
Will reach out to GI whether patient is able to start anticoagulation and stop IV heparin
Patient had mentioned wanting to try Xarelto which would be Xarelto 15 mg
[id number] score of 4 for age, HTN, DM. HASBLED score calculated to be 6, high risk for bleeding.
Might be candidate for outpatient watchman evaluation
Continue volume control with hemodialysis.
B/L LE cellulitis and discitis on MRI 05/27/2024. Continue Ertapenem 500mg IV q24 through 07/06/24 per ID
Progress Note - Bench Mechanic
Subjective
Date of Service: June 19, 2024
No complaints
Objective
Labs:
06/18/24 05:03
06/19/24 05:03
Labs
Hgb 8.4 g/dL (13.0-18.0) L 06/18/24 05:03
Hct 26.9 % (39.0-52.0) L 06/18/24 05:03
Plt Count 142 10^3/uL (130-400) 06/18/24 05:03
PT 21.4 Sec (11.4-14.6) H 06/10/24 03:18
INR 1.84 06/10/24 03:18
APTT 59.3 Sec (23.4-35.0) H 06/19/24 05:03
Sodium 134 mmol/L (135-145) L 06/19/24 05:03
Potassium 4.2 mmol/L (3.5-5.1) 06/19/24 05:03
BUN 50 mg/dl (9-20) H 06/19/24 05:03
Creatinine 4.8 mg/dL (0.7-1.3) H* 06/19/24 05:03
Glucose 124 mg/dl (70-99) H 06/19/24 05:03
Vital Signs and I&O:
Vital Signs
Temp Pulse Resp BP Pulse Ox
98.2 F 80 18 120/65 97
06/19/24 10:46 06/19/24 10:46 06/19/24 10:46 06/19/24 10:46 06/19/24 10:46
Vital Signs
Temp Pulse Resp BP Pulse Ox
98.2 F 80 18 120/65 97
06/19/24 10:46 06/19/24 10:46 06/19/24 10:46 06/19/24 10:46 06/19/24 10:46
Intake & Output
06/17/24 06/18/24 06/19/24 06/20/24
06:59 06:59 06:59 06:59
Intake Total 1080 / 1080 960 / 960 960 / 960
Balance 1080 / 1080 960 / 960 960 / 960
Physical Exam
Physical Exam
General: Well developed, well nourished in NAD.
Neck: Supple, no JVD, HJR, carotids +2 B/L, no bruits bilaterally.
Heart: Non displaced PMI, irregular, no murmurs, No S3, S4, no rubs.
Lungs: Scattered rhonchi
Extremities: No clubbing, cyanosis or edema bilaterally.
Neuro: Grossly nonfocal, awake, alert and oriented x3.
--- NOTE | 2024-06-19 11:09 | WOUNDNOTE ---
L POSTERIOR LOWER LEG
--- NOTE | 2024-06-19 11:09 | WOUNDNOTE ---
R POSTERIOR LOWER LEG
--- NOTE | 2024-06-19 11:11 | WOUNDNOTE ---
WIL RN NOTE: Followed up today while PT standing patient, sacrum intact. Nurse Jessica assisted in wound care to legs. Posterior ulcers very clean and improved since last seen. No change in wound care, pillows placed under calves. Will follow as
needed.
[2024-06-19 12:23] LABS: APTT 61.5 Sec (23.4-35.0)
[2024-06-19 12:34] LABS: Hematocrit 27.5 % (39.0-52.0); Hemoglobin 8.8 g/dL (13.0-18.0); Mean Corpuscular Hgb 28.3 pg (27.0-31.0); Mean Corpuscular Volume 88.4 fL (80.0-94.0); Mean Platelet Volume 9.9 fL (7.4-10.4); Platelet Count 123 10^3/uL (130-400); Red Blood Cell Count 3.11 10^6/uL (4.70-6.10); Red Cell Dist. Width 16.5 % (11.5-14.5); White Blood Cell Count 6.8 10^3/uL (4.8-10.8)
[2024-06-19] MEDS: MANNITOL 25% 12.5 GRAMS IV ×2 (12:40→14:20)
[2024-06-19 12:48] LABS: Glucose - Point of Care 123 mg/dl (70-99)
--- NOTE | 2024-06-19 13:39 | W.PN.NEPH.HD ---
Assessment
-
Seen on HD. no complaints. VSS, access temp CVC
hold coumadin (?xarelto too $$?) so he can get tunnelled HD CVC while we wait for renal recovery potential
lasix trial tomorrow
Progress Note - Hemodialysis
-
Date of Service: June 19, 2024
Duration: 30 minutes and 3 hours
Potassium Bath: 3
Calcium Bath: 2.5
Opti-Dialyzer: 160
Ultrafiltration: Other (3kg)
Blood Flow: 400
Dialysate Flow: 600
Heparin: 0
EPO: [id number] units
[2024-06-19] MEDS: FLEXBUMIN 25% FOR HEMODIALYSIS 12.5 GRAMS IV ×2 (14:05→15:00)
[2024-06-19] MEDS: TYLENOL PO (14:15)
[2024-06-19] MEDS: RETACRIT 10000 UNITS IV (14:18)
--- NOTE | 2024-06-19 14:38 | CM ---
Chart reviewed and case management manager met with patient and reviewed discharge options, case management manager will await tunnelled HD cath placement and final decision on HD. Patient may need skilled placement referral sent.
Plan; To follow with patient progress.
--- NOTE | 2024-06-19 15:01 | W.PN.HOSP.TC ---
Today's Communication/Plan
-
Assessment / Plan
Assessment / Plan
Physical Exam
General: No Apparent Distress, Comfortable and Conversant
HEENT: NormoCephalic, Moist mucous membranes, Atraumatic
Respiratory: Clear and Non Labored Respirations
Cardiac: S1/S2 and Regular Rhythm; No Rub or Gallop
GI: Soft, Non Tender, Non Distended and Normal Bowel Sounds
Musculoskeletal: Bilateral lower extremity edema, no deformity
: NO Abraham
Neuro: Awake, Alert, Nonfocal/grossly intact
Psych: Calm and Intact Judgment/Insight
Assessment/Plan
74 years old male presented with altered mentation and was found to have signs of shock with recent GI bleeding/hematemesis
#Hemorrhagic shock secondary to GI bleeding/hematemesis leading to acute blood loss anemia associated with Eliquis, likely upper GI bleeding from history
#Coagulopathy s/p Kcentra
-Resolved. Patient received a total of 5 units of PRBCs. Received reversal agents in ER. HGB stabilized.
-Continue IV Protonix 40 mg BID
-Tolerating p.o. diet
-Per GI and ICU doctors recommendations, pt will need EGD. and patient declined EGD due to stability of the patient and lack of active GI bleeding.
-Planning to restart oral anticoagulation with warfarin per patient/family preference, bridge with IV heparin until INR therapeutic, will start warfarin after PermCath placement hopefully tomorrow 06/20
# Acute on chronic low back pain.
-This issue seemed to be the driving discomfort for the patient. He reports now less pain. No fever or leukocytosis. Blood culture is negative
-Increased Tylenol TID (high dose) to QID, trying to avoid IV Dilaudid PRN as possible
- Lidocaine patch
# Toxic metabolic encephalopathy
-Resolved
-Psychiatrist recommending trial of melatonin, if it does not work we can use low dose Ambien. So far, his sleep improved with melatonin.
-CT head on admission: no evidence for acute intracranial abnormality.
#Recent septic shock and treatment for bilateral lower extremity cellulitis, was on IV cefepime.
#Possible L2/L3 discitis on 05/27/24 MRI, present on admission, patient declined biopsy
-Plan was to do cefepime x 6 weeks through 07/06/24 but patient developed leukopenia, switched to Ertapenem.
-Chest x-ray No signs of erythema/swelling around PICC line
-Consulted ID, appreciate input
#Severe acute kidney injury(likely prerenal)/hyperkalemia/anion gap metabolic acidosis (due to lactic acidosis and CLIFF)
#Azotemia suspected due to upper GI bleed and acute kidney injury
-Anuric renal failure
-Held diuretics, metformin, blood pressure medication on admission.
-Patient seems to have chronic kidney disease stage IIIb from previous records, baseline creatinine is 1.3 to 1.6
-Despite IV fluids and red blood cell transfusion, renal function hasn't really improved -- so dialysis started 06/10
-Abraham catheter, removed with lack of Output
-Nephrology planning PermCath placement tomorrow 06/20
#Recent new onset paroxysmal atrial fibrillation
-Continue rate control with metoprolol succinate 50 mg p.o. twice daily
- Anticoagulating with IV heparin for now, plan for transition to warfarin after PermCath placement hopefully tomorrow 06/20
-Recent echo showed LVEF 65 to 70%, trace TR, biatrial dilatation, mild MR.
-Could eventually be considered for watchman device as outpatient
-Cardiology consultation recommendations appreciated
# Dysphagia, d/w speech , now on IDDS-6
# Hyponatremia
- Mild, clinically insignificant
- Monitor
#Type 2 Diabetes Mellitus
-Hold metformin
-Sliding scale insulin as needed
#History of primary hypertension.
-Improved BP, Resuming BB
#Recent hospitalization with incidental finding of proximal R thigh mass:
-6.1 x 3.3 x 4.3cm solid lesion with internal vascularity in the proximal right thigh with differential including suspicious lymph node or soft tissue neoplasm.
-Patient and were aware of it.
#Elevated proBNP
-proBNP [id number]
-Volume removal via dialysis per nephrology
#Morbid Obesity
#History of stage II pressure coccygeal area injury
# Chronic history of bilateral lower extremity lymphedema
# History of alcohol use. No history of recent alcohol intake
#History of asthma on Dulera 200mcg BID at home with rescue albuterol - not currently having an exacerbation
#History of restrictive lung disease with post-bronchodilator FVC of 1.1L / 30% predicted via spirometry from 04/05/2024
# Significant BLE lymphedema
-Continue wound care and compression
Code Status: Full Code
DVT Prophylaxis: Anticoagulation with IV heparin
Anticipated Discharge: 24 - 48 hours
Subjective/Interval History
-
Date of Service: June 19, 2024
Patient was seen and examined at bedside this morning. Feeling well. No complaints and no acute events overnight. No further evidence of GI bleeding. Continuing anticoagulation with IV heparin.
Objective Data
-
Labs:
Laboratory Results
06/19/24 06/19/24 06/19/24
05:03 12:02 12:18
WBC 6.8
Hgb 8.8 L
Hct 27.5 L
Plt Count 123 L
APTT 59.3 H 61.5 H
Sodium 134 L
Potassium 4.2
Chloride 100
Carbon Dioxide 28
BUN 50 H
Creatinine 4.8 H*
Glucose 124 H
Calcium 8.1 L
06/19/24
18:00
WBC
Hgb
Hct
Plt Count
APTT Pending
Sodium
Potassium
Chloride
Carbon Dioxide
BUN
Creatinine
Glucose
Calcium
Vital Signs:
Vital Signs
Temp Pulse Resp BP Pulse Ox
98.2 F 80 18 120/65 97
06/19/24 10:46 06/19/24 10:46 06/19/24 10:46 06/19/24 10:46 06/19/24 10:46
I&O
06/18/24 06/19/24 06/20/24
06:59 06:59 06:59
Intake Total 960 / 960 960 / 960
Balance 960 / 960 960 / 960
Review of Systems
-
History Source: Patient
All other systems: Reviewed and negative
Physical Exam
-
General: No Apparent Distress
[2024-06-19] MEDS: MIRALAX 17 GRAMS PO (15:17)
[2024-06-19] MEDS: INVANZ 55 MG IV (15:19)
[2024-06-19 16:06] LABS: Glucose - Point of Care 93 mg/dl (70-99)
[2024-06-19] MEDS: BENADRYL 12.5 MG IV (17:37)
[2024-06-19] MEDS: HYDROCORTISONE 1% CREAM 1 APPLIC TOPICAL (17:56)
[2024-06-19 18:02] LABS: % Basophils 0.6 % (0-2); % Eosinophils 5.4 % (0-6); % Immature Granulocytes 0.9 % (0-0.5); % Monocytes 19.1 % (1.7-9.3); Absolute Eosinophils 0.4 10^3/uL (0-0.7); Absolute Immature Granulocytes 0.1 10^3/uL (0-0.05); Absolute Lymphocytes 0.7 10^3/uL (1.2-3.4); Absolute Monocytes 1.2 10^3/uL (0.1-0.6); Hematocrit 27.1 % (39.0-52.0); Hemoglobin 8.8 g/dL (13.0-18.0); Mean Corp Hgb Conc. 32.5 g/dL (33.0-37.0); Mean Corpuscular Hgb 28.6 pg (27.0-31.0); Nucleated Red Blood Cells % 0 % (-); Platelet Count 104 10^3/uL (130-400); Red Blood Cell Count 3.08 10^6/uL (4.70-6.10); Red Cell Dist. Width 16.5 % (11.5-14.5); White Blood Cell Count 6.4 10^3/uL (4.8-10.8)
[2024-06-19 18:12] LABS: Fibrinogen 350 MG/DL (199-459)
[2024-06-19 18:25] LABS: APTT 167.6 Sec (23.4-35.0)
[2024-06-19] MEDS: TOPROL XL PO (20:28)
[2024-06-19] MEDS: MELATONIN 5 MG PO (20:33)
[2024-06-19 21:25] LABS: Glucose - Point of Care 108 mg/dl (70-99)
[2024-06-20 02:07] LABS: APTT 115.5 Sec (23.4-35.0)
[2024-06-20 02:56] VITALS: BP 120/50
[2024-06-20 06:00] VITALS: BMI 41.6
[2024-06-20 07:42] VITALS: BP 131/56
[2024-06-20 07:53] LABS: Glucose - Point of Care 90 mg/dl (70-99)
[2024-06-20] MEDS: NOVOLOG FLEXPEN-LOW RESISTANCE SC ×2 (08:01→16:33)
[2024-06-20 08:43] LABS: INR 1.24; PT 15.9 Sec (11.4-14.6)
[2024-06-20 08:46] LABS: APTT 131.2 Sec (23.4-35.0)
[2024-06-20 08:49] LABS: % Basophils 0.6 % (0-2); % Eosinophils 6.2 % (0-6); % Immature Granulocytes 0.8 % (0-0.5); % Lymphocytes 12.6 % (20.5-51.1); % Monocytes 16.9 % (1.7-9.3); % Neutrophils 62.9 % (42.2-75.2); Absolute Eosinophils 0.4 10^3/uL (0-0.7); Absolute Immature Granulocytes 0.1 10^3/uL (0-0.05); Absolute Lymphocytes 0.8 10^3/uL (1.2-3.4); Absolute Monocytes 1.1 10^3/uL (0.1-0.6); Hematocrit 28.1 % (39.0-52.0); Hemoglobin 9.1 g/dL (13.0-18.0); Mean Corp Hgb Conc. 32.4 g/dL (33.0-37.0); Mean Corpuscular Hgb 28.4 pg (27.0-31.0); Mean Corpuscular Volume 87.8 fL (80.0-94.0); Mean Platelet Volume 9.8 fL (7.4-10.4); Nucleated Red Blood Cells % 0 % (-); Platelet Count 127 10^3/uL (130-400); Red Cell Dist. Width 16.6 % (11.5-14.5); White Blood Cell Count 6.3 10^3/uL (4.8-10.8)
[2024-06-20] MEDS: LIDOCAINE 4% PATCH 1 PATCH TOPICAL (08:56)
[2024-06-20] MEDS: LASIX 80 MG IV (08:57)
[2024-06-20] MEDS: PROTONIX 40 MG PO ×2 (08:58→20:39)
[2024-06-20] MEDS: TYLENOL 1000 MG PO ×2 (08:58→20:42)
[2024-06-20] MEDS: DESENEX/MITRAZOL/ZEASORB 1 APPLIC TOPICAL ×2 (08:59→20:38)
[2024-06-20] MEDS: TOPROL XL 50 MG PO ×2 (08:59→20:39)
[2024-06-20] MEDS: HYDROPHOR 1 APPLIC TOPICAL (09:00)
[2024-06-20 09:03] LABS: Blood Urea Nitrogen 31 mg/dl (9-20); Calcium 8.1 mg/dl (8.4-10.2); Carbon Dioxide 27 mmol/L (22-30); Chloride 98 mmol/L (98-107); Estimated Creatinine Clearance 25 ml/min; Glucose 98 mg/dl (70-99); Potassium 3.8 mmol/L (3.5-5.1); Sodium 134 mmol/L (135-145); eGFR 18.62
--- NOTE | 2024-06-20 10:41 | W.PN.ID1 ---
Date of Service
Date of Service: June 20, 2024
Today's Communication
- diffuse, nonblanching rash over the bilateral upper extremities, blanching rash on the abdomen, mildly pruritic
- possible ADR, no trauma
- QTc's have not been reliable in the setting of Afib; discussed with Dr Viveros, will trend serial EKGs
- will switch to levofloxacin 250 mg PO qday, hold ertapenem
- might consider further workup of the R thigh mass
Assessment / Plan
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
# Mild thrombocytopenia on heparin drip
- diffuse, nonblanching rash over the bilateral upper extremities, blanching rash on the abdomen, mildly pruritic
- possible ADR, no trauma
- QTc's have not been reliable in the setting of Afib; discussed with Dr Viveros, will trend serial EKGs
- will switch to levofloxacin 250 mg PO qday, hold ertapenem
- might consider further workup of the R thigh mass
# Possible L2/L3 discitis on 05/27/24 MRI, present on admission (pt had refused biopsy)
- Continue Ertapenem 500mg IV q24 through 07/06/24. (previously on cefepime)
- Infusion sheet submitted to case management by Dr Booth
- R PICC line in place
# CLIFF
- started HD 06/10
# Acute Leukopenia - resolved 06/18
- cefepime dc'd 06/14.
# Significant chronic BLE lymphedema
- Continue compression
- recommend outpatient follow up with lymphedema center
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
Diabetes mellitus
Asthma
Afib on eliquis
Dyslipidemia
Hypertension
Class III obesity BMI 42
Possible L2/L3 discitis on IV cefepime through 07/06/24
Bilateral lower extremity lymphedema - goes to lymphedema PT
Chief Complaint
-: Other (possible discitis)
Subjective / Review of Systems
afebrile
bp stable
no events reported overnight
reports improving back pain
Vital Signs / Physical Exam
Vital Signs
Vital Signs
Temp Pulse Resp BP Pulse Ox
97.9 F 93 20 131/56 96
06/20/24 07:42 06/20/24 07:42 06/20/24 07:42 06/20/24 08:57 06/20/24 07:42
Physical Exam
Constitutional: No Acute Distress
Cardiovascular: Regular Rate and S1/S2; Negative Murmur or Rub
Pulmonary: Clear and Symmetric; Negative Wheezes or Rales
Gastrointestinal: Soft, Non Tender, Non Distended and Normal Bowel Sounds
Skin: Warm and Dry; Negative Rash or Jaundice
Objective Data
Lab Data
Lab Results
06/20/24 08:05
06/20/24 08:05
PT 15.9 Sec (11.4-14.6) H 06/20/24 08:05
INR 1.24 06/20/24 08:05
APTT 131.2 Sec (23.4-35.0) H 06/20/24 08:05
Estimated Creat Clear 25 ml/min 06/20/24 08:05
Lactic Acid 1.5 mmol/L (0.7-2.0) 06/09/24 16:25
Total Bilirubin 0.8 mg/dl (0.2-1.3) 06/10/24 03:18
AST 18 U/L (17-59) 06/10/24 03:18
ALT 19 U/L (0-50) 06/10/24 03:18
Alkaline Phosphatase 88 U/L (38-126) 06/10/24 03:18
C-Reactive Protein 137.60 mg/L (0.0-10.00) H 06/13/24 03:02
Most recent labs reviewed.
Micro Results:
06/09/24 11:10 Blood Culture - Final
Blood/Venous No Growth - Final Report
06/09/24 10:48 Blood Culture - Final
Blood/Venous No Growth - Final Report
06/09/24 16:25 MRSA Screen - Final
Nose No Methicillin Resistant Staphylococcus aureus isolated.
06/09/24 11:10 Urine Culture - Final
Urine NO GROWTH
06/09/24 CXR: Mild to moderate elevation of the right hemidiaphragm, stable. There is a band of increased density in the left mid to lower lung, horizontal, stable appearance from prior examination, compatible with stable atelectasis and/or scarring.
--- NOTE | 2024-06-20 10:42 | W.PN.CARDCBS ---
Today's Communication / Plan
-
Continue IV heparin to Coumadin
Heart rate control suboptimal at times and might consider increasing Toprol but will follow for now
Impression / Plan
-
.
Carry In Worker: None, initially seen by Dr Vargas
Impression:
Presentation 06/09/2024 with altered mental status
TME
Hematemesis
Hemorrhagic shock with acute on chronic anemia, suspected GI bleeding
ARF
Hyperkalemia
Metabolic acidosis
Admission to 05/20-05/30/24 for sepsis, B/L cellulitis, ARF
Atrial fibrillation, diagnosed 05/2024
Hyponatremia
Morbid obesity
Suspected COLT
Type 2 diabetes mellitus
Hyperlipidemia
Hypertension
Lymphedema
B/L LE wounds
Alcohol use disorder
Poor self care
Proximal right thigh mass
ECHO 05/20/24: EF 65-70%, mod cLVH, mild RV enlargement, biatrial dilation, mild MR, trace TR, PAP 41mmHg, IV dilated, does not collapse, prominent anterior fat pad present, trivial pericardial effusion noted
Plan:
Heart rate control reasonable but may be suboptimal at time
Might consider increasing Toprol depending on blood pressure but will continue to follow for now
Continue IV heparin to Coumadin
Hemoglobin stable at 9.1 on 06/20
[id number] score of 4 for age, HTN, DM. HASBLED score calculated to be 6, high risk for bleeding.
Might be candidate for outpatient watchman evaluation
Continue volume control with hemodialysis.
B/L LE cellulitis and discitis on MRI 05/27/2024. Continue Ertapenem 500mg IV q24 through 07/06/24 per ID
Progress Note - Carry In Worker
Subjective
Date of Service: June 20, 2024
No chest pain or shortness of breath
Objective
Labs:
06/20/24 08:05
06/20/24 08:05
Labs
Hgb 9.1 g/dL (13.0-18.0) L 06/20/24 08:05
Hct 28.1 % (39.0-52.0) L 06/20/24 08:05
Plt Count 127 10^3/uL (130-400) L D 06/20/24 08:05
PT 15.9 Sec (11.4-14.6) H 06/20/24 08:05
INR 1.24 06/20/24 08:05
APTT 131.2 Sec (23.4-35.0) H 06/20/24 08:05
Sodium 134 mmol/L (135-145) L 06/20/24 08:05
Potassium 3.8 mmol/L (3.5-5.1) 06/20/24 08:05
BUN 31 mg/dl (9-20) H 06/20/24 08:05
Creatinine 3.3 mg/dL (0.7-1.3) H 06/20/24 08:05
Glucose 98 mg/dl (70-99) 06/20/24 08:05
Vital Signs and I&O:
Vital Signs
Temp Pulse Resp BP Pulse Ox
97.9 F 93 20 131/56 96
06/20/24 07:42 06/20/24 07:42 06/20/24 07:42 06/20/24 08:57 06/20/24 07:42
Vital Signs
Temp Pulse Resp BP Pulse Ox
97.9 F 93 20 131/56 96
06/20/24 07:42 06/20/24 07:42 06/20/24 07:42 06/20/24 08:57 06/20/24 07:42
Intake & Output
06/18/24 06/19/24 06/20/24 06/21/24
06:59 06:59 06:59 06:59
Intake Total 960 / 960 960 / 960 470 / 470
Output Total 450 / 450
Balance 960 / 960 960 / 960 20 / 20
Physical Exam
Physical Exam
General: Well developed, well nourished in NAD.
Neck: Supple, no JVD, HJR, carotids +2 B/L, no bruits bilaterally.
Heart: Non displaced PMI, irregular, no murmurs, No S3, S4, no rubs.
Lungs: Scattered rhonchi
Extremities: No clubbing, cyanosis or edema bilaterally.
Neuro: Grossly nonfocal, awake, alert and oriented x3.
[2024-06-20 11:05] VITALS: BP 122/58
[2024-06-20] MEDS: HEPARIN 25000 UNITS/250 ML IV (11:12)
--- NOTE | 2024-06-20 11:13 | W.PN.NEPH.PH ---
Today's Communication / Plan
-
HD tomorrow
Assessment/Plan
-
Impression:
Encephalopathy
Anemia with hematemesis on chronic oral anticoagulation (5.6)
History of recently diagnosed atrial fibrillation on Eliquis
Acute renal failure
Hyperkalemia
Metabolic acidosis (gapped and non gapped)
History of bilateral cellulitis and discitis on cefepime
History of alcohol use
Chronic lymphedema
macular rash
Plan:
HD tomorrow
attempt temp to tunnelled CVC conversion tomorrow. may benefit from opiates for back pain for procedure
check serologies with evolving rash
hold on any more lasix with rash
-
-
Date of Service: June 20, 2024
CC / HPI / ROS
-
Chief Complaint:
Acute kidney
History of Present Illness:
Acute kidney injury now dialysis dependent
tolerated HD yesterday
Hemodynamically stable
Hemoglobin at 9.1 stable
plts low but stable
progressing macular nonblanching rash on arms, was petechial, now coalescing
Review of Systems:
nonoliguric
no CP/SOB
Labs
-
Labs:
WBC 6.3 10^3/uL (4.8-10.8) 06/20/24 08:05
RBC 3.20 10^6/uL (4.70-6.10) L 06/20/24 08:05
Hgb 9.1 g/dL (13.0-18.0) L 06/20/24 08:05
Hct 28.1 % (39.0-52.0) L 06/20/24 08:05
Plt Count 127 10^3/uL (130-400) L D 06/20/24 08:05
Sodium 134 mmol/L (135-145) L 06/20/24 08:05
Potassium 3.8 mmol/L (3.5-5.1) 06/20/24 08:05
Chloride 98 mmol/L (98-107) 06/20/24 08:05
Carbon Dioxide 27 mmol/L (22-30) 06/20/24 08:05
BUN 31 mg/dl (9-20) H 06/20/24 08:05
Creatinine 3.3 mg/dL (0.7-1.3) H 06/20/24 08:05
eGFR 18.62 06/20/24 08:05
Glucose 98 mg/dl (70-99) 06/20/24 08:05
Calcium 8.1 mg/dl (8.4-10.2) L 06/20/24 08:05
Phosphorus 5.3 mg/dl (2.5-4.5) H 06/12/24 03:15
Hqx-N-Bcamythgpdl Pept > 42801 pg/ml 06/12/24 03:15
Albumin 2.7 g/dl (3.5-5.0) L 06/10/24 03:18
Physical Exam
-
Vital Signs:
Vital Signs
Temp Pulse Resp BP Pulse Ox
97.8 F 94 18 122/58 96
06/20/24 11:05 06/20/24 11:05 06/20/24 11:05 06/20/24 11:05 06/20/24 11:05
Cardiovascular:: Regular rate and rhythm
Respiratory:: Bilateral: Coarse
Lung Excursion:: Normal
Abdomen:: Nontender and Soft
Bowel Sounds:: Normal
Extremity Edema:: +2: Bilateral:
[2024-06-20 11:25] LABS: Glucose - Point of Care 159 mg/dl (70-99)
[2024-06-20] MEDS: NOVOLOG FLEXPEN-LOW RESISTANCE 1 UNITS SC (11:35)
[2024-06-20] MEDS: TYLENOL PO ×2 (12:17→17:21)
[2024-06-20] MEDS: DILAUDID 0.25 MG IV (12:35)
[2024-06-20 13:28] LABS: ALT (SGPT) < 10 U/L (0-50); AST (SGOT) 15 U/L (17-59); Albumin 2.4 g/dl (3.5-5.0); Alkaline Phosphatase 99 U/L (38-126); Direct Bilirubin 0.4 mg/dl (0.0-0.4); Total Bilirubin 0.6 mg/dl (0.2-1.3); Total Protein 5.1 g/dl (6.3-8.2)
[2024-06-20] MEDS: LEVAQUIN 250 MG PO (13:51)
[2024-06-20] MEDS: MIRALAX 17 GRAMS PO (13:51)
--- NOTE | 2024-06-20 14:22 | CM ---
Chart reviewed and waiting on a decision on a tunnelled cath, plan was for HD and skilled placement.
Plan; To follow with patient and assist with discharge planning.
[2024-06-20 15:01] VITALS: BP 97/57
--- NOTE | 2024-06-20 15:19 | W.PN.HOSP.TC ---
Today's Communication/Plan
-
Assessment / Plan
Assessment / Plan
Physical Exam
General: No Apparent Distress, Comfortable and Conversant
HEENT: NormoCephalic, Moist mucous membranes, right IJ Zackery
Respiratory: Clear and Non Labored Respirations
Cardiac: S1/S2 and Regular Rhythm; No Rub or Gallop
GI: Soft, Non Tender, Non Distended and Normal Bowel Sounds
Musculoskeletal: Bilateral lower extremity edema, no deformity
Skin: Scattered nonblanching small circular confluent rash on bilateral arms worst on left hand, nonpainful and nonpruritic
: NO Abraham
Neuro: Awake, Alert, Nonfocal/grossly intact
Psych: Calm and Intact Judgment/Insight
Assessment/Plan
74 years old male presented with altered mentation and was found to have signs of shock with recent GI bleeding/hematemesis
#Hemorrhagic shock secondary to GI bleeding/hematemesis leading to acute blood loss anemia associated with Eliquis, likely upper GI bleeding from history
#Coagulopathy s/p Kcentra
-Resolved. Patient received a total of 5 units of PRBCs. Received reversal agents in ER. HGB stabilized.
-Continue IV Protonix 40 mg BID
-Tolerating p.o. diet
-Per GI and ICU doctors recommendations, pt will need EGD. and patient declined EGD due to stability of the patient and lack of active GI bleeding.
-Planning to restart oral anticoagulation with warfarin per patient/family preference, bridge with IV heparin until INR therapeutic, will start warfarin after PermCath placement hopefully tomorrow 06/21 as tolerated if patient is able to lay flat for
procedure
#Severe acute kidney injury(likely prerenal)/hyperkalemia/anion gap metabolic acidosis (due to lactic acidosis and CLIFF)
#Azotemia suspected due to upper GI bleed and acute kidney injury
-Anuric renal failure
-Held diuretics, metformin, blood pressure medication on admission.
-Patient seems to have chronic kidney disease stage IIIb from previous records, baseline creatinine is 1.3 to 1.6
-Despite IV fluids and red blood cell transfusion, renal function hadn't improved -- so dialysis started 06/10
-Abraham catheter removed due to lack of Output
-Nephrology planning PermCath placement tomorrow 06/21 if patient able to lay flat for procedure considering his severe back pain
# Acute on chronic low back pain.
-This issue seemed to be the driving discomfort for the patient. He reports now less pain. No fever or leukocytosis. Blood culture is negative
-Increased Tylenol TID (high dose) to QID, trying to avoid IV Dilaudid PRN as possible
- Lidocaine patch
#Rash of bilateral arms
- Small circular confluent nonblanching red rash on bilateral upper extremities worst on left hand, nonpruritic and nonpainful
- Unclear etiology but suspect drug reaction
- Repeat labs showed improving platelet count and normal fibrinogen level
- Rash did not improve with Benadryl or steroid cream
- Holding Lasix which he had received a dose of this morning 06/20
- Switched antibiotics to levofloxacin
# Toxic metabolic encephalopathy
-Resolved
-Suspect due to uremia in the setting of renal failure
-Psychiatrist recommending trial of melatonin, if it does not work we can use low dose Ambien. So far, his sleep improved with melatonin.
-CT head on admission: no evidence for acute intracranial abnormality.
#Recent septic shock and treatment for bilateral lower extremity cellulitis, was on IV cefepime.
#Possible L2/L3 discitis on 05/27/24 MRI, present on admission, patient declined biopsy
-Plan was to do cefepime x 6 weeks through 07/06/24 but patient developed leukopenia, switched to Ertapenem, now developed rash on bilateral arms and have switched to Levaquin
-Chest x-ray No signs of erythema/swelling around PICC line
-Consulted ID, appreciate input
#Recent new onset paroxysmal atrial fibrillation
-Continue rate control with metoprolol succinate 50 mg p.o. twice daily
- Anticoagulating with IV heparin for now, plan for transition to warfarin after PermCath placement hopefully tomorrow 06/21
-Recent echo showed LVEF 65 to 70%, trace TR, biatrial dilatation, mild MR.
-Could eventually be considered for watchman device as outpatient
-Cardiology consultation recommendations appreciated
# Dysphagia, d/w speech , now on IDDS-6
# Hyponatremia
- Mild, clinically insignificant
- Monitor
#Type 2 Diabetes Mellitus
-Hold metformin
-Sliding scale insulin as needed
#History of primary hypertension.
-Improved BP, Resuming BB
#Recent hospitalization with incidental finding of proximal R thigh mass:
-6.1 x 3.3 x 4.3cm solid lesion with internal vascularity in the proximal right thigh with differential including suspicious lymph node or soft tissue neoplasm.
-Patient and were aware of it.
#Elevated proBNP
-proBNP 87040
-Volume removal via dialysis per nephrology
#Morbid Obesity
#History of stage II pressure coccygeal area injury
# Chronic history of bilateral lower extremity lymphedema
# History of alcohol use. No history of recent alcohol intake
#History of asthma on Dulera 200mcg BID at home with rescue albuterol - not currently having an exacerbation
#History of restrictive lung disease with post-bronchodilator FVC of 1.1L / 30% predicted via spirometry from 04/05/2024
# Significant BLE lymphedema
-Continue wound care and compression
Code Status: Full Code
DVT Prophylaxis: Anticoagulation with IV heparin
Anticipated Discharge: > 48 hours
Subjective/Interval History
-
Date of Service: June 20, 2024
Patient seen and examined at bedside this morning. Still has rash on bilateral arms, worst on left hand, but not painful or itchy. Unclear etiology for rash at this point. Otherwise no complaints and no acute events overnight.
Objective Data
-
Labs:
Laboratory Results
06/20/24 06/20/24
08:05 16:10
WBC 6.3
Hgb 9.1 L
Hct 28.1 L
Plt Count 127 L D
PT 15.9 H
INR 1.24
APTT 131.2 H Pending
Sodium 134 L
Potassium 3.8
Chloride 98
Carbon Dioxide 27
BUN 31 H
Creatinine 3.3 H
Glucose 98
Calcium 8.1 L
Total Bilirubin 0.6
AST 15 L
ALT < 10
Alkaline Phosphatase 99
Vital Signs:
Vital Signs
Temp Pulse Resp BP Pulse Ox
98.1 F 91 18 97/57 96
06/20/24 15:01 06/20/24 15:01 06/20/24 15:01 06/20/24 15:01 06/20/24 15:01
I&O
06/19/24 06/20/24 06/21/24
06:59 06:59 06:59
Intake Total 960 / 960 470 / 470
Output Total 450 / 450
Balance 960 / 960 20 / 20
Review of Systems
-
History Source: Patient
All other systems: Reviewed and negative
Physical Exam
-
General: No Apparent Distress
[2024-06-20 16:26] LABS: Glucose - Point of Care 120 mg/dl (70-99)
[2024-06-20 19:51] VITALS: BP 118/51
[2024-06-20] MEDS: MELATONIN 5 MG PO (20:42)
[2024-06-20 20:59] LABS: Glucose - Point of Care 121 mg/dl (70-99)
[2024-06-20 22:23] LABS: APTT 106.7 Sec (23.4-35.0)
[2024-06-20 23:48] VITALS: BP 148/51
[2024-06-21] VITALS (8 sets, daily range): BP systolic 107–165; BP diastolic 44–105; PULSE 96–142; BMI 41.1
[2024-06-21] MEDS: APRESOLINE 10 MG IV (00:19)
[2024-06-21] MEDS: HEPARIN 25000 UNITS/250 ML IV ×2 (00:24→18:29)
[2024-06-21 06:25] LABS: % Basophils 0.6 % (0-2); % Eosinophils 5.8 % (0-6); % Lymphocytes 12.8 % (20.5-51.1); % Monocytes 14.5 % (1.7-9.3); % Neutrophils 65.3 % (42.2-75.2); Absolute Eosinophils 0.4 10^3/uL (0-0.7); Absolute Immature Granulocytes 0.1 10^3/uL (0-0.05); Absolute Lymphocytes 0.9 10^3/uL (1.2-3.4); Absolute Neutrophils 4.7 10^3/uL (1.4-6.5); Hematocrit 29.3 % (39.0-52.0); Hemoglobin 9.3 g/dL (13.0-18.0); Mean Corp Hgb Conc. 31.7 g/dL (33.0-37.0); Mean Corpuscular Hgb 27.4 pg (27.0-31.0); Mean Corpuscular Volume 86.4 fL (80.0-94.0); Mean Platelet Volume 9.7 fL (7.4-10.4); Nucleated Red Blood Cells % 0 % (-); Platelet Count 140 10^3/uL (130-400); Red Blood Cell Count 3.39 10^6/uL (4.70-6.10); Red Cell Dist. Width 16.8 % (11.5-14.5); White Blood Cell Count 7.1 10^3/uL (4.8-10.8)
[2024-06-21 06:26] LABS: INR 1.27; PT 16.2 Sec (11.4-14.6)
[2024-06-21 06:28] LABS: APTT 114.2 Sec (23.4-35.0)
[2024-06-21 07:10] LABS: Albumin 2.3 g/dl (3.5-5.0); Blood Urea Nitrogen 36 mg/dl (9-20); Calcium 8.1 mg/dl (8.4-10.2); Carbon Dioxide 24 mmol/L (22-30); Chloride 98 mmol/L (98-107); Estimated Creatinine Clearance 22 ml/min; Glucose 107 mg/dl (70-99); Potassium 3.9 mmol/L (3.5-5.1); Sodium 132 mmol/L (135-145); eGFR 16.23
[2024-06-21 07:31] LABS: Complement C3 91 mg/dl (88-165)
[2024-06-21 08:38] LABS: Glucose - Point of Care 100 mg/dl (70-99)
[2024-06-21 08:43] LABS: ASO Quantitative 400 IU/ml (<200); Anti Streptolysin Positive (Negative)
[2024-06-21] MEDS: NOVOLOG FLEXPEN-LOW RESISTANCE SC ×3 (09:41→17:28)
[2024-06-21] MEDS: PROTONIX 40 MG PO ×2 (09:42→20:00)
[2024-06-21] MEDS: LIDOCAINE 4% PATCH 1 PATCH TOPICAL (09:42)
[2024-06-21] MEDS: LEVAQUIN 250 MG PO (09:42)
[2024-06-21] MEDS: TYLENOL 1000 MG PO ×3 (09:43→22:34)
[2024-06-21] MEDS: DESENEX/MITRAZOL/ZEASORB 1 APPLIC TOPICAL ×2 (09:44→20:01)
[2024-06-21] MEDS: TOPROL XL 50 MG PO ×2 (09:45→20:00)
--- NOTE | 2024-06-21 09:55 | WOUNDNOTE ---
[facility] RN note: Consulted for new stage 2 sacral pressure injury. Patient admitted 06/09/24 with GI bleed. Patient admitted from [facility]. is present. Patient to have a dialysis catheter placed possibly today.
See H&P for complete history.
PMH: cellulitis, a fib (Eliquis), CKD on HD, ETOH use recent past, asthma, obesity, lymphedema legs.
Wound Location and type/assessment: Patient admitted with: Coccyx MASD which has progressed to an unstageable pressure injury. L inner buttocks with dark purple dry ulcer suspect is a stage 2 pressure injury. Patient on IV heparin. Rash noted on
arms, faint generalized pink rash on abdomen/upper thighs. RN Will mentioned the physician changed his antibiotic d/t the rash. stated his Lasix had been also stopped. See previous [facility] RN notes for leg wounds.
Appetite: good.
Pressure redistribution devices in place: [employer] Accumax. Patient has the HOB elevated at all times d/t back pain. Patient cannot turn self in bed.
Plan: Silicone border foam dressing changed on his coccyx/L buttocks. Patient turned to R semi side lying position with help from RN Will. Heels off bed with pillows. Air chair cushion in chair. Bariatric air chair cushion given. t/c SPD and
ordered a Centrella Max Wide air bed. Discussed with KEO King.
Will update and confirm orders with Dr. Reddy.
Care plan to be updated and will follow as needed.
Note to case management of equipment requested for discharge: Air mattress.
Recommend follow up at wound care center upon discharge.
--- NOTE | 2024-06-21 10:53 | CM ---
Addendum entered by Neela Walls 06/21/24 15:27:
Intake at [facility] is [place] [phone]
Addendum entered by Neela Walls 06/21/24 14:25:
All clinicals faxed to [facility] intake, . Patient has selected [facility] in [place].
Original Note:
Patient for tunneled Cath tomorrow, HD today, plan is for skilled placement, options reviewed and referral sent to [facility] and [facility]. Referral sent to [facility] Admissions to review insurance and medical.
Plan; Skilled placement, New HD, referral sent to [facility].
--- NOTE | 2024-06-21 11:12 | WOUNDNOTE ---
[facility] RN note: Patient now in recliner chair with bariatric air chair cushion. Switched patient's bed to a [facility] Wide air bed with help from KEO Guevara. Skin on patient's heels intact.
--- NOTE | 2024-06-21 12:15 | W.PN.CARDCBS ---
Addendum entered and electronically signed by Christian Quispe MD 06/21/24 15:11:
I saw and examined the patient.
The [employer] Row Marker's note was reviewed and I agree with the note.
Comment: Briefly, 74-year-old man with past medical history of atrial fibrillation presenting with hemorrhagic shock in the setting of suspected GI bleed and resultant acute renal failure
Given anemia patient's Eliquis has been held
Currently maintained on heparin drip and hemoglobin is stable
Tentative plan to transition to warfarin when no further procedures are planned, but currently awaiting permacath placement
Heart rates have been controlled in atrial fibrillation here on Toprol-XL 50 mg twice daily, would continue this dosing
Rest per Veronika Mireles
Original Note:
Today's Communication / Plan
-
IV heparin
permcath when able. initiate coumadin once placed
consider increasing toprol for improved BP control
Impression / Plan
-
.
Cpas: None, initially seen by Dr Vargas
Impression:
Presentation 06/09/2024 with altered mental status
TME
Hematemesis
Hemorrhagic shock with acute on chronic anemia, suspected GI bleeding
ARF
Hyperkalemia
Metabolic acidosis
Admission to 05/20-05/30/24 for sepsis, B/L cellulitis, ARF
Atrial fibrillation, diagnosed 05/2024
Hyponatremia
Morbid obesity
Suspected COLT
Type 2 diabetes mellitus
Hyperlipidemia
Hypertension
Lymphedema
B/L LE wounds
Alcohol use disorder
Poor self care
Proximal right thigh mass
ECHO 05/20/24: EF 65-70%, mod cLVH, mild RV enlargement, biatrial dilation, mild MR, trace TR, PAP 41mmHg, IV dilated, does not collapse, prominent anterior fat pad present, trivial pericardial effusion noted
Plan:
-HRs adequate on review of tele overnight. BPs elevated, required IV hydralazine overnight. consider increasing toprol dose to 75mg BID
-continue IV heparin. waiting for placement of Permcath prior to initiating coumadin
-hgb stable at 9.3
-[id number] score of 4 for age, HTN, DM. HASBLED score calculated to be 6, high risk for bleeding. consider candidacy for outpatient watchman evaluation
-volume mgmt through HD
-B/L LE cellulitis and discitis on MRI 05/27/2024. with B/L UE rash, felt to be drug rash. abx switched to levofloxacin 06/20
-PT/OT
Progress Note - Cpas
Subjective
Date of Service: June 21, 2024
no palpitations. denies itching
Objective
Labs:
06/21/24 06:03
06/21/24 06:03
Labs
Hgb 9.3 g/dL (13.0-18.0) L 06/21/24 06:03
Hct 29.3 % (39.0-52.0) L 06/21/24 06:03
Plt Count 140 10^3/uL (130-400) 06/21/24 06:03
PT 16.2 Sec (11.4-14.6) H 06/21/24 06:03
INR 1.27 06/21/24 06:03
APTT 114.2 Sec (23.4-35.0) H 06/21/24 06:03
Sodium 132 mmol/L (135-145) L 06/21/24 06:03
Potassium 3.9 mmol/L (3.5-5.1) 06/21/24 06:03
BUN 36 mg/dl (9-20) H 06/21/24 06:03
Creatinine 3.7 mg/dL (0.7-1.3) H 06/21/24 06:03
Glucose 107 mg/dl (70-99) H 06/21/24 06:03
Vital Signs and I&O:
Vital Signs
Temp Pulse Resp BP Pulse Ox
97.8 F 91 20 165/105 98
06/21/24 11:55 06/21/24 11:55 06/21/24 11:55 06/21/24 11:55 06/21/24 11:55
Vital Signs
Temp Pulse Resp BP Pulse Ox
97.8 F 91 20 165/105 98
06/21/24 11:55 06/21/24 11:55 06/21/24 11:55 06/21/24 11:55 06/21/24 11:55
Intake & Output
06/19/24 06/20/24 06/21/24 06/22/24
07:59 07:59 07:59 07:59
Intake Total 960 / 960 470 / 470 540 / 540
Output Total 450 / 450 950 / 950
Balance 960 / 960 20 / 20 -410 / -410
Physical Exam
Physical Exam
GEN: No distress, awake, alert, oriented x3. obese
HEENT: supple, anicteric, mmm, eomi
LUNGS: CTA anterolaterally, no wheezes
CV: Irreg, S1/S2, no murmur
EXT: No cyanosis, clubbing. 2+ edema of B/L LE
NEURO: Gross non-focal
SKIN: Warm, pink, dry. diffuse B/L UE rash
[2024-06-21 12:22] LABS: Glucose - Point of Care 105 mg/dl (70-99)
--- NOTE | 2024-06-21 13:04 | WOUNDNOTE ---
[facility] RN Note: Updated Dr. Núñez re: coccyx, L buttocks ulcers. Hospitalist approved local wound care and air mattress order. Paul Sargent re: patient needs an air mattress at SNF/rehab, he has a coccyx pressure injury.
[2024-06-21] MEDS: HYDROPHOR 1 APPLIC TOPICAL (13:17)
[2024-06-21 13:31] LABS: APTT 84.5 Sec (23.4-35.0)
--- NOTE | 2024-06-21 13:58 | W.PN.ID1 ---
Date of Service
Date of Service: June 21, 2024
Today's Communication
Continue levofloxacin.
Assessment / Plan
# Possible Vasculitis rash
# Mild thrombocytopenia on heparin drip
- diffuse, nonblanching rash (macular, nonpalpable) over the bilateral upper extremities,
- doubt ADR ->but Ertapenem dc'd on 06/20.
- WES pending.
# Possible L2/L3 discitis on 05/27/24 MRI, present on admission (pt had refused biopsy)
- (previously on cefepime, dc'd due to leukopenia)
- Discontinued Ertapenem on 06/20 due to rash
- Continue Levofloxacin 250mg po qd for remaining course through 07/06/24.
Baseline QTc >500, may not be reilable due to PPM. Serial EKG's - no increase in QTc, thus far.
- R PICC line in place
# CLIFF
- started HD 06/10
# Acute Leukopenia - resolved 06/18
- cefepime dc'd 06/14.
# Significant chronic BLE lymphedema
- Continue compression
- recommend outpatient follow up with lymphedema center
# Right thigh mass
# Conditions CLASSIFIED AD CLERK
Diabetes mellitus
Asthma
Afib on eliquis
Dyslipidemia
Hypertension
Class III obesity BMI 42
Possible L2/L3 discitis on IV cefepime through 07/06/24
Bilateral lower extremity lymphedema - goes to lymphedema PT
Chief Complaint
-: Other (possible discitis)
Subjective / Review of Systems
Rash is not itchy today.
Vital Signs / Physical Exam
Vital Signs
Vital Signs
Temp Pulse Resp BP Pulse Ox
97.8 F 91 20 165/105 98
06/21/24 11:55 06/21/24 11:55 06/21/24 11:55 06/21/24 11:55 06/21/24 11:55
Physical Exam
Constitutional: No Acute Distress and Chronically Ill
Cardiovascular: Irregular Rate and S1/S2
Pulmonary: Clear
Gastrointestinal: Soft, Non Tender, Non Distended and Normal Bowel Sounds
Genito-Urinary: Negative CVA Tenderness
Extremities: Edema
Skin: Rash (Bilateral UE: nonblanchable macular dark erythema of various sizes)
Objective Data
Lab Data
Lab Results
06/21/24 06:03
06/21/24 06:03
PT 16.2 Sec (11.4-14.6) H 06/21/24 06:03
INR 1.27 06/21/24 06:03
APTT 84.5 Sec (23.4-35.0) H 06/21/24 13:08
Estimated Creat Clear 22 ml/min 06/21/24 06:03
Lactic Acid 1.5 mmol/L (0.7-2.0) 06/09/24 16:25
Total Bilirubin 0.6 mg/dl (0.2-1.3) 06/20/24 08:05
AST 15 U/L (17-59) L 06/20/24 08:05
ALT < 10 U/L (0-50) 06/20/24 08:05
Alkaline Phosphatase 99 U/L (38-126) 06/20/24 08:05
C-Reactive Protein 137.60 mg/L (0.0-10.00) H 06/13/24 03:02
Most recent labs reviewed.
Micro Results:
06/09/24 11:10 Blood Culture - Final
Blood/Venous No Growth - Final Report
06/09/24 10:48 Blood Culture - Final
Blood/Venous No Growth - Final Report
06/09/24 16:25 MRSA Screen - Final
Nose No Methicillin Resistant Staphylococcus aureus isolated.
06/09/24 11:10 Urine Culture - Final
Urine NO GROWTH
06/09/24 CXR: Mild to moderate elevation of the right hemidiaphragm, stable. There is a band of increased density in the left mid to lower lung, horizontal, stable appearance from prior examination, compatible with stable atelectasis and/or scarring.
--- NOTE | 2024-06-21 14:42 | W.PN.HOSP.TC ---
Today's Communication/Plan
-
Assessment / Plan
Assessment / Plan
Physical Exam
General: No Apparent Distress, Comfortable and Conversant
HEENT: NormoCephalic, Moist mucous membranes, right IJ Zackery
Respiratory: Clear and Non Labored Respirations
Cardiac: S1/S2 and Regular Rhythm; No Rub or Gallop
GI: Soft, Non Tender, Non Distended and Normal Bowel Sounds
Musculoskeletal: Bilateral lower extremity edema, no deformity
Skin: Scattered nonblanching small circular confluent rash on bilateral arms worst on left hand, now starting to fade
: NO Abraham
Neuro: Awake, Alert, Nonfocal/grossly intact
Psych: Calm and Intact Judgment/Insight
Assessment/Plan
74 years old male presented with altered mentation and was found to have signs of shock with recent GI bleeding/hematemesis
#Hemorrhagic shock secondary to GI bleeding/hematemesis leading to acute blood loss anemia associated with Eliquis, likely upper GI bleeding from history
#Coagulopathy s/p Kcentra
-Resolved. Patient received a total of 5 units of PRBCs. Received reversal agents in ER. HGB stabilized.
-Continue IV Protonix 40 mg BID
-Tolerating p.o. diet
-Per GI and ICU doctors recommendations, pt will need EGD. and patient declined EGD due to stability of the patient and lack of active GI bleeding.
-Planning to restart oral anticoagulation with warfarin per patient/family preference, will need to bridge with IV heparin until INR therapeutic, will start warfarin after PermCath placement which has been delayed until tomorrow 06/22 as tolerated if
patient is able to lay flat for procedure
#Severe acute kidney injury(likely prerenal)/hyperkalemia/anion gap metabolic acidosis (due to lactic acidosis and CLIFF)
#Azotemia suspected due to upper GI bleed and acute kidney injury
-Anuric renal failure
-Held diuretics, metformin, blood pressure medication on admission.
-Patient seems to have chronic kidney disease stage IIIb from previous records, baseline creatinine is 1.3 to 1.6
-Despite IV fluids and red blood cell transfusion, renal function hadn't improved -- so dialysis started 06/10
-Abraham catheter removed due to lack of Output
-Nephrology planning PermCath placement tomorrow 06/22 if patient able to lay flat for procedure considering his severe back pain
-Antistreptolysin O antibody positive
# Acute on chronic low back pain.
-This issue seemed to be the driving discomfort for the patient. He reports now less pain. No fever or leukocytosis. Blood culture is negative
-Increased Tylenol TID (high dose) to QID, trying to avoid IV Dilaudid PRN as possible
- Lidocaine patch
#Rash of bilateral arms
- Small circular confluent nonblanching red rash on bilateral upper extremities worst on left hand, mildly pruritic, improving today
- Unclear etiology but suspect drug reaction
- Repeat labs showed improving platelet count and normal fibrinogen level
- Rash did not improve with Benadryl or steroid cream
- Holding Lasix which he had received a dose of 06/20
- Switched antibiotics to levofloxacin
-Antistreptolysin O antibody positive
- WES pending
# Toxic metabolic encephalopathy
-Resolved
-Suspect due to uremia in the setting of renal failure
-Psychiatrist recommending trial of melatonin, if it does not work we can use low dose Ambien. So far, his sleep improved with melatonin.
-CT head on admission: no evidence for acute intracranial abnormality.
#Recent septic shock and treatment for bilateral lower extremity cellulitis, was on IV cefepime.
#Possible L2/L3 discitis on 05/27/24 MRI, present on admission, patient declined biopsy
-Plan was to do cefepime x 6 weeks through 07/06/24 but patient developed leukopenia, switched to Ertapenem, now developed rash on bilateral arms and have switched to Levaquin
-Chest x-ray No signs of erythema/swelling around PICC line
-Consulted ID, appreciate input
#Recent new onset paroxysmal atrial fibrillation
-Continue rate control with metoprolol succinate 50 mg p.o. twice daily
- Anticoagulating with IV heparin for now, plan for transition to warfarin after PermCath placement hopefully tomorrow 06/22
-Recent echo showed LVEF 65 to 70%, trace TR, biatrial dilatation, mild MR.
-Could eventually be considered for watchman device as outpatient
-Cardiology consultation recommendations appreciated
# Dysphagia, d/w speech , now on IDDS-6
# Hyponatremia
- Mild, clinically insignificant, stable
- Monitor
#Type 2 Diabetes Mellitus
-Hold metformin
-Sliding scale insulin as needed
#History of primary hypertension.
-Improved BP, Resuming BB
#Recent hospitalization with incidental finding of proximal R thigh mass:
-6.1 x 3.3 x 4.3cm solid lesion with internal vascularity in the proximal right thigh with differential including suspicious lymph node or soft tissue neoplasm.
-Patient and were aware of it.
#Elevated proBNP
-proBNP [id number]
-Volume removal via dialysis per nephrology
#Morbid Obesity
#History of stage II pressure coccygeal area injury
# Chronic history of bilateral lower extremity lymphedema
# History of alcohol use. No history of recent alcohol intake
#History of asthma on Dulera 200mcg BID at home with rescue albuterol - not currently having an exacerbation
#History of restrictive lung disease with post-bronchodilator FVC of 1.1L / 30% predicted via spirometry from 04/05/2024
# Significant BLE lymphedema
-Continue wound care and compression
Code Status: Full Code
DVT Prophylaxis: Anticoagulation with IV heparin
Anticipated Discharge: > 48 hours
Subjective/Interval History
-
Date of Service: June 21, 2024
Patient was seen and examined at bedside this morning. The rash on his arms appears to be fading. Had been anticipating IR placement of PermCath today however that has been delayed until tomorrow.
Objective Data
-
Labs:
Laboratory Results
06/21/24 06/21/24 06/21/24
06:03 13:08 20:10
WBC 7.1
Hgb 9.3 L
Hct 29.3 L
Plt Count 140
PT 16.2 H
INR 1.27
APTT 114.2 H 84.5 H Pending
Sodium 132 L
Potassium 3.9
Chloride 98
Carbon Dioxide 24
BUN 36 H
Creatinine 3.7 H
Glucose 107 H
Calcium 8.1 L
Vital Signs:
Vital Signs
Temp Pulse Resp BP Pulse Ox
97.8 F 91 20 165/105 98
06/21/24 11:55 06/21/24 11:55 06/21/24 11:55 06/21/24 11:55 06/21/24 11:55
I&O
06/20/24 06/21/24 06/22/24
06:59 06:59 06:59
Intake Total 470 / 470 360 / 360 180 / 180
Output Total 450 / 450 700 / 700 250 / 250
Balance 20 / 20 -340 / -340 -70 / -70
Review of Systems
-
History Source: Patient
All other systems: Reviewed and negative
Physical Exam
-
General: No Apparent Distress
[2024-06-21] MEDS: RETACRIT 10000 UNITS IV (15:33)
--- NOTE | 2024-06-21 15:59 | W.PN.NEPH.HD ---
Assessment
-
pt seen during HD
vitals stable
sleepy and reportedly needing max assist, Jayy lift for ambulation
for tunneled catheter tomorrow
cr uprising and barely non oliguric, no renal recovery noted yet
Progress Note - Hemodialysis
-
Date of Service: June 21, 2024
Duration: 30 minutes and 3 hours
Potassium Bath: 3
Calcium Bath: 2.5
Opti-Dialyzer: 160
Ultrafiltration: Other (2kg)
Blood Flow: 400
Dialysate Flow: 600
Heparin: no
EPO: [id number]
[2024-06-21] MEDS: HEPARIN 2000 UNITS INTRACATH (16:33)
[2024-06-21] MEDS: TYLENOL PO (17:22)
[2024-06-21] MEDS: MIRALAX PO ×2 (17:22→17:32)
[2024-06-21 17:29] LABS: Glucose - Point of Care 97 mg/dl (70-99)
[2024-06-21 21:10] LABS: Glucose - Point of Care 157 mg/dl (70-99)
[2024-06-21 21:17] LABS: APTT 75.2 Sec (23.4-35.0)
[2024-06-21] MEDS: MELATONIN PO (22:35)
[2024-06-21] MEDS: MELATONIN 5 MG PO (22:39)
[2024-06-22] VITALS (9 sets, daily range): BP systolic 88–159; BP diastolic 43–90; BMI 41.1
[2024-06-22 05:50] LABS: % Basophils 0.6 % (0-2); % Eosinophils 7.1 % (0-6); % Immature Granulocytes 0.8 % (0-0.5); % Lymphocytes 13.3 % (20.5-51.1); % Monocytes 14.9 % (1.7-9.3); % Neutrophils 63.3 % (42.2-75.2); Absolute Eosinophils 0.5 10^3/uL (0-0.7); Absolute Immature Granulocytes 0.1 10^3/uL (0-0.05); Absolute Lymphocytes 0.8 10^3/uL (1.2-3.4); Absolute Monocytes 0.9 10^3/uL (0.1-0.6); Hematocrit 26.4 % (39.0-52.0); Hemoglobin 8.5 g/dL (13.0-18.0); Mean Corp Hgb Conc. 32.2 g/dL (33.0-37.0); Mean Corpuscular Volume 86.8 fL (80.0-94.0); Nucleated Red Blood Cells % 0 % (-); Platelet Count 118 10^3/uL (130-400); Red Blood Cell Count 3.04 10^6/uL (4.70-6.10); Red Cell Dist. Width 16.7 % (11.5-14.5); White Blood Cell Count 6.3 10^3/uL (4.8-10.8)
[2024-06-22 05:58] LABS: INR 1.31; PT 16.8 Sec (11.4-14.6)
[2024-06-22 06:00] LABS: APTT 115.2 Sec (23.4-35.0)
[2024-06-22 06:15] LABS: Glucose - Point of Care 110 mg/dl (70-99)
[2024-06-22] MEDS: DILAUDID 0.25 MG IV (07:48)
[2024-06-22] MEDS: TOPROL XL 50 MG PO ×2 (08:12→20:26)
[2024-06-22] MEDS: LIDOCAINE 4% PATCH TOPICAL (08:24)
[2024-06-22] MEDS: TYLENOL PO (08:24)
[2024-06-22] MEDS: PROTONIX PO (08:24)
--- NOTE | 2024-06-22 08:59 | CM ---
Chart reviewed and manager case management sent a referral to [facility], per admissions they do not have any HD beds at their facility. Referral sent to [facility] and they can accept patient and transport patient to HD at [place],
patient needs to be able to tolerate a w/c for transport. Referral sent to [facility].
Intake at [facility] is [phone]
Plan; Hopefully patient will be able to go to [facility] with HD at [place] when approved.
--- NOTE | 2024-06-22 11:00 | PTOTSP ---
Speech Language Pathology
Request from family to upgrade diet so that pt may have bread. Dentures not currently in hospital. Asked RN to have family bring in dentures. [employer]YWALL TAPER HELPER to follow up 06/23 when dentures present.
--- NOTE | 2024-06-22 11:20 | W.PN.ID1 ---
Date of Service
Date of Service: June 22, 2024
Today's Communication
Continue levofloxacin.
Assessment / Plan
# Rash - possible Vasculitis. Stable.
# Thrombocytopenia
- diffuse, nonblanching rash (macular, nonpalpable) over the bilateral upper extremities,
- doubt ADR ->but Ertapenem dc'd on 06/20.
- Complements normal
- Anti-streptolysin O ab 400 (nl<200). The patient's rash is not typical of post-group A strep skin manisfestations.
- WES pending.
# Possible L2/L3 discitis on 05/27/24 MRI, present on admission (pt had refused biopsy)
- (previously on cefepime, dc'd due to leukopenia)
- Discontinued Ertapenem on 06/20 due to rash
- Continue Levofloxacin 250mg po qd for remaining course through 07/06/24.
Baseline QTc >500, may not be reliable due to PPM. Serial EKG's - no increase in QTc, thus far.
- R PICC line in place
# CLIFF - now HD dependent
- started HD 06/10
- Perm catheter placed 06/22.
# Acute Leukopenia - resolved 06/18
- cefepime dc'd 06/14.
# Significant chronic BLE lymphedema
- Continue compression
- recommend outpatient follow up with lymphedema center
# Conditions SURGERY TECH
Diabetes mellitus
Asthma
Afib on eliquis
Dyslipidemia
Hypertension
Class III obesity BMI 42
Possible L2/L3 discitis on IV cefepime through 07/06/24
Bilateral lower extremity lymphedema - goes to lymphedema PT
Chief Complaint
-: Other (possible discitis)
Subjective / Review of Systems
No worsening rash.
Vital Signs / Physical Exam
Vital Signs
Vital Signs
Temp Pulse Resp BP Pulse Ox
98.5 F 88 20 91/70 98
06/22/24 08:36 06/22/24 09:51 06/22/24 09:51 06/22/24 09:51 06/22/24 09:51
Physical Exam
Constitutional: Comfortable
Cardiovascular: Irregular Rate and S1/S2
Pulmonary: Clear
Gastrointestinal: Soft, Non Tender, Non Distended and Normal Bowel Sounds
Genito-Urinary: Negative CVA Tenderness
Extremities: Edema (Lymphedema); Negative Erythema
Skin: Rash (Bilateral UE: stable confluent diffuse nonblanchable macular erythematous rash; was dark red now pink )
Neurological: AO x 3
Objective Data
Lab Data
Lab Results
06/22/24 05:21
06/21/24 06:03
PT 16.8 Sec (11.4-14.6) H 06/22/24 05:21
INR 1.31 06/22/24 05:21
APTT 115.2 Sec (23.4-35.0) H 06/22/24 05:21
Estimated Creat Clear 22 ml/min 06/21/24 06:03
Lactic Acid 1.5 mmol/L (0.7-2.0) 06/09/24 16:25
Total Bilirubin 0.6 mg/dl (0.2-1.3) 06/20/24 08:05
AST 15 U/L (17-59) L 06/20/24 08:05
ALT < 10 U/L (0-50) 06/20/24 08:05
Alkaline Phosphatase 99 U/L (38-126) 06/20/24 08:05
C-Reactive Protein 53.00 mg/L (0.0-10.00) H 06/22/24 05:21
Most recent labs reviewed.
Micro Results:
06/09/24 11:10 Blood Culture - Final
Blood/Venous No Growth - Final Report
06/09/24 10:48 Blood Culture - Final
Blood/Venous No Growth - Final Report
06/09/24 16:25 MRSA Screen - Final
Nose No Methicillin Resistant Staphylococcus aureus isolated.
06/09/24 11:10 Urine Culture - Final
Urine NO GROWTH
06/09/24 CXR: Mild to moderate elevation of the right hemidiaphragm, stable. There is a band of increased density in the left mid to lower lung, horizontal, stable appearance from prior examination, compatible with stable atelectasis and/or scarring.
[2024-06-22 11:35] LABS: Glucose - Point of Care 114 mg/dl (70-99)
--- NOTE | 2024-06-22 12:16 | W.PN.NEPH.PH ---
Today's Communication / Plan
-
HD tomorrow
Assessment/Plan
-
Impression:
Encephalopathy
Anemia with hematemesis on chronic oral anticoagulation (5.6)
History of recently diagnosed atrial fibrillation on Eliquis
Acute renal failure
Hyperkalemia
Metabolic acidosis (gapped and non gapped)
History of bilateral cellulitis and discitis on cefepime
History of alcohol use
Chronic lymphedema
macular rash
Plan:
HD tomorrow
s/p tunneled catheter today
pending serologies with evolving rash, complements are neg
hold on any more lasix with rash
abx adjusted per ID on Levofloxacin till 07/06
rehab placement and HD at [place]
d/w pt and family
-
-
Date of Service: June 22, 2024
CC / HPI / ROS
-
Chief Complaint:
Acute kidney
History of Present Illness:
Acute kidney injury now dialysis dependent
tolerated HD yesterday
Hemodynamically stable
Hemoglobin at 8.5 down
plts low but stable
Review of Systems:
nonoliguric
no CP/SOB
Labs
-
Labs:
WBC 6.3 10^3/uL (4.8-10.8) 06/22/24 05:21
RBC 3.04 10^6/uL (4.70-6.10) L 06/22/24 05:21
Hgb 8.5 g/dL (13.0-18.0) L 06/22/24 05:21
Hct 26.4 % (39.0-52.0) L 06/22/24 05:21
Plt Count 118 10^3/uL (130-400) L 06/22/24 05:21
Sodium 132 mmol/L (135-145) L 06/21/24 06:03
Potassium 3.9 mmol/L (3.5-5.1) 06/21/24 06:03
Chloride 98 mmol/L (98-107) 06/21/24 06:03
Carbon Dioxide 24 mmol/L (22-30) 06/21/24 06:03
BUN 36 mg/dl (9-20) H 06/21/24 06:03
Creatinine 3.7 mg/dL (0.7-1.3) H 06/21/24 06:03
eGFR 16.23 06/21/24 06:03
Glucose 107 mg/dl (70-99) H 06/21/24 06:03
Calcium 8.1 mg/dl (8.4-10.2) L 06/21/24 06:03
Phosphorus 4.0 mg/dl (2.5-4.5) 06/21/24 06:03
Emi-E-Jalnodrnsut Pept > 14493 pg/ml 06/12/24 03:15
Albumin 2.3 g/dl (3.5-5.0) L 06/21/24 06:03
Physical Exam
-
Vital Signs:
Vital Signs
Temp Pulse Resp BP Pulse Ox
98.5 F 88 20 91/70 98
06/22/24 08:36 06/22/24 09:51 06/22/24 09:51 06/22/24 09:51 06/22/24 09:51
Cardiovascular:: Regular rate and rhythm
Respiratory:: Bilateral: Coarse
Lung Excursion:: Normal
Abdomen:: Nontender and Soft
Bowel Sounds:: Normal
Extremity Edema:: +2: Bilateral: (chronic)
Abraham Catheter: No
Other Findings::
stable macular nonblanching rash on arms, was petechial, now coalescing-limited to UEs
[2024-06-22 13:20] LABS: APTT 33.2 Sec (23.4-35.0)
--- NOTE | 2024-06-22 13:45 | W.PN.HOSP.TC ---
Today's Communication/Plan
-
Assessment / Plan
Assessment / Plan
Physical Exam
General: No Apparent Distress, Comfortable and Conversant
HEENT: NormoCephalic, Moist mucous membranes, right chest PermCath
Respiratory: Clear and Non Labored Respirations
Cardiac: S1/S2 and Regular Rhythm; No Rub or Gallop
GI: Soft, Non Tender, Non Distended and Normal Bowel Sounds
Musculoskeletal: Bilateral lower extremity edema, Justus wraps in place, no deformity
Skin: Scattered nonblanching small circular confluent rash on bilateral arms worst on left hand, now starting to fade
: NO Abraham
Neuro: Awake, Alert, Nonfocal/grossly intact
Psych: Calm and Intact Judgment/Insight
Assessment/Plan
74 years old male presented with altered mentation and was found to have signs of shock with recent GI bleeding/hematemesis
#Hemorrhagic shock secondary to GI bleeding/hematemesis leading to acute blood loss anemia associated with Eliquis, likely upper GI bleeding from history
#Coagulopathy s/p Kcentra
-Resolved. Patient received a total of 5 units of PRBCs. Received reversal agents in ER. HGB stabilized.
-Continue IV Protonix 40 mg BID
-Tolerating p.o. diet
-Per GI and ICU doctors recommendations, pt will need EGD. and patient declined EGD due to stability of the patient and lack of active GI bleeding.
-Planning to restart oral anticoagulation tonight with warfarin per patient/family preference, will need to bridge with IV heparin until INR therapeutic
#Severe acute kidney injury(likely prerenal)/hyperkalemia/anion gap metabolic acidosis (due to lactic acidosis and CLIFF)
#Azotemia suspected due to upper GI bleed and acute kidney injury
-Anuric renal failure
-Held diuretics, metformin, blood pressure medication on admission.
-Patient seems to have chronic kidney disease stage IIIb from previous records, baseline creatinine is 1.3 to 1.6
-Despite IV fluids and red blood cell transfusion, renal function hadn't improved -- so dialysis started 06/10
-Abraham catheter removed due to lack of Output
- PermCath placed today 06/22
-Antistreptolysin O antibody positive
# Acute on chronic low back pain.
-This issue seemed to be the driving discomfort for the patient. He reports now less pain. No fever or leukocytosis. Blood culture is negative
-Increased Tylenol TID (high dose) to QID, trying to avoid IV Dilaudid PRN as possible
- Lidocaine patch
#Rash of bilateral arms
- Small circular confluent nonblanching red rash on bilateral upper extremities worst on left hand, mildly pruritic, continues to improve today
- Unclear etiology but suspect drug reaction
- Repeat labs showed improving platelet count and normal fibrinogen level
- Rash did not improve with Benadryl or steroid cream
- Holding Lasix which he had received a dose of 06/20
- Switched antibiotics to levofloxacin
-Antistreptolysin O antibody positive
- WES pending
# Toxic metabolic encephalopathy
-Resolved
-Suspect due to uremia in the setting of renal failure
-Psychiatrist recommending trial of melatonin, if it does not work we can use low dose Ambien. So far, his sleep improved with melatonin.
-CT head on admission: no evidence for acute intracranial abnormality.
#Recent septic shock and treatment for bilateral lower extremity cellulitis, was on IV cefepime.
#Possible L2/L3 discitis on 05/27/24 MRI, present on admission, patient declined biopsy
-Plan was to do cefepime x 6 weeks through 07/06/24 but patient developed leukopenia, switched to Ertapenem, now developed rash on bilateral arms and have switched to Levaquin
-Chest x-ray No signs of erythema/swelling around PICC line
-Consulted ID, appreciate input
#Recent new onset paroxysmal atrial fibrillation
-Continue rate control with metoprolol succinate 50 mg p.o. twice daily
- Starting anticoagulation with warfarin today 06/22 with heparin bridging
-Recent echo showed LVEF 65 to 70%, trace TR, biatrial dilatation, mild MR.
-Could eventually be considered for watchman device as outpatient
-Cardiology recommendations appreciated
# Dysphagia, d/w speech , now on IDDS-6
# Hyponatremia
- Mild, clinically insignificant, stable
- Monitor
#Type 2 Diabetes Mellitus
-Hold metformin
-Sliding scale insulin as needed
#History of primary hypertension.
-Improved BP, Resuming BB
#Recent hospitalization with incidental finding of proximal R thigh mass:
-6.1 x 3.3 x 4.3cm solid lesion with internal vascularity in the proximal right thigh with differential including suspicious lymph node or soft tissue neoplasm.
-Patient and were aware of it, do not want to pursue further workup at this time
#Elevated proBNP
-proBNP 24989
-Volume removal via dialysis per nephrology
#Morbid Obesity
#History of stage II pressure coccygeal area injury
# Chronic history of bilateral lower extremity lymphedema
# History of alcohol use. No history of recent alcohol intake
#History of asthma on Dulera 200mcg BID at home with rescue albuterol - not currently having an exacerbation
#History of restrictive lung disease with post-bronchodilator FVC of 1.1L / 30% predicted via spirometry from 04/05/2024
# Significant BLE lymphedema
-Continue wound care and compression
Code Status: Full Code
DVT Prophylaxis: Anticoagulation with IV heparin bridging to warfarin
Anticipated Discharge: > 48 hours
Subjective/Interval History
-
Date of Service: June 22, 2024
Patient was seen and examined this morning after successful PermCath placement. No complaints. Will start bridging to warfarin.
Objective Data
-
Labs:
Laboratory Results
06/22/24 06/22/24
05:21 12:54
WBC 6.3
Hgb 8.5 L
Hct 26.4 L
Plt Count 118 L
PT 16.8 H
INR 1.31
APTT 115.2 H 33.2
Vital Signs:
Vital Signs
Temp Pulse Resp BP Pulse Ox
98.5 F 89 20 133/59 100
06/22/24 11:26 06/22/24 11:26 06/22/24 11:26 06/22/24 11:26 06/22/24 11:26
I&O
06/21/24 06/22/24 06/23/24
06:59 06:59 06:59
Intake Total 360 / 360 1140 / 1140 410 / 410
Output Total 700 / 700 650 / 650 125 / 125
Balance -340 / -340 490 / 490 285 / 285
Review of Systems
-
History Source: Patient
All other systems: Reviewed and negative
Physical Exam
-
General: No Apparent Distress
--- NOTE | 2024-06-22 13:56 | W.PN.CARDCBS ---
Addendum entered and electronically signed by Shekhar Pittman MD 06/22/24 15:31:
I saw and examined the patient.
The Sonography Technologist's note was reviewed and I agree with the note.
Comment:
GEN: No distress, awake, Ox3
HEENT: supple, anicteric, mmm
LUNGS: CTA, no wheezes/rales
CV: Irreg, S1/S2, 1/6 syst LSB, no gallop
ABD: soft, BS+, NT/ND
EXT: ++ edema
NEURO: Gross non-focal
SKIN: chronic stasis changes
Plan:
Overall doing well status post permacath placement. Will start Coumadin tonight. Goal INR 2-3.
Hemoglobin slightly down at 8.5. Continue to follow. The patient declined EGD. Will need to follow for bleeding risk.
Continue Toprol. A-fib remains rate controlled.
Original Note:
Today's Communication / Plan
-
s/p permcath 06/22. initiate coumadin 5mg tonight
follow INR. goal 2-3
continue toprol
would recommend weekly CBC and INR checks upon DC for several weeks
will arrange OP cardiac follow up
Impression / Plan
-
.
Restaurant Recruiter: None, initially seen by Dr Vargas
Impression:
Presentation 06/09/2024 with altered mental status
TME
Hematemesis
Hemorrhagic shock with acute on chronic anemia, suspected GI bleeding
ARF
Hyperkalemia
Metabolic acidosis
Admission to 05/20-05/30/24 for sepsis, B/L cellulitis, ARF
Atrial fibrillation, diagnosed 05/2024
Hyponatremia
Morbid obesity
Suspected COLT
Type 2 diabetes mellitus
Hyperlipidemia
Hypertension
Lymphedema
B/L LE wounds
Alcohol use disorder
Poor self care
Proximal right thigh mass
ECHO 05/20/24: EF 65-70%, mod cLVH, mild RV enlargement, biatrial dilation, mild MR, trace TR, PAP 41mmHg, IV dilated, does not collapse, prominent anterior fat pad present, trivial pericardial effusion noted
Plan:
-remains in afib with overall controlled response on review of tele overnight. continue toprol 50mg BID
-s/p Permcath placement today
-starting coumadin 5mg QPM tonight. goal INR 2-3, today 1.33. reviewed common medication and dietary interactions for coumadin with patient and at bedside. we also discussed obtaining a home INR monitor
-hgb 8.5 on 06/22
-would recommend weekly CBC and INR checks upon DC for several weeks.
-[id number] score of 4 for age, HTN, DM. HASBLED score calculated to be 6, high risk for bleeding. consider candidacy for outpatient watchman evaluation
-continue volume mgmt through HD
-B/L LE cellulitis and discitis on MRI 05/27/2024. with B/L UE rash, which appears to be improving. abx switched to levofloxacin 06/20, ID following.
-PT/OT
-will arrange OP cardiac follow up
Progress Note - Restaurant Recruiter
Subjective
Date of Service: June 22, 2024
no SOB or palpitations.
Objective
Labs:
06/22/24 05:21
06/21/24 06:03
Labs
Hgb 8.5 g/dL (13.0-18.0) L 06/22/24 05:21
Hct 26.4 % (39.0-52.0) L 06/22/24 05:21
Plt Count 118 10^3/uL (130-400) L 06/22/24 05:21
PT 16.8 Sec (11.4-14.6) H 06/22/24 05:21
INR 1.31 06/22/24 05:21
APTT 33.2 Sec (23.4-35.0) 06/22/24 12:54
Sodium 132 mmol/L (135-145) L 06/21/24 06:03
Potassium 3.9 mmol/L (3.5-5.1) 06/21/24 06:03
BUN 36 mg/dl (9-20) H 06/21/24 06:03
Creatinine 3.7 mg/dL (0.7-1.3) H 06/21/24 06:03
Glucose 107 mg/dl (70-99) H 06/21/24 06:03
Vital Signs and I&O:
Vital Signs
Temp Pulse Resp BP Pulse Ox
98.5 F 89 20 133/59 100
06/22/24 11:26 06/22/24 11:26 06/22/24 11:26 06/22/24 11:26 06/22/24 11:26
Vital Signs
Temp Pulse Resp BP Pulse Ox
98.5 F 89 20 133/59 100
06/22/24 11:26 06/22/24 11:26 06/22/24 11:26 06/22/24 11:26 06/22/24 11:26
Intake & Output
06/20/24 06/21/24 06/22/24 06/23/24
07:59 07:59 07:59 07:59
Intake Total 470 / 470 540 / 540 1370 / 1370
Output Total 450 / 450 950 / 950 525 / 525
Balance -410 / -410 845 / 845
Physical Exam
Physical Exam
GEN: No distress, awake, alert, oriented x3. obese
HEENT: supple, anicteric, mmm, eomi
LUNGS: CTA anterolaterally, no wheezes
CV: Irreg, S1/S2, no murmur
EXT: No cyanosis, clubbing. dressings to B/L LE
NEURO: Gross non-focal
SKIN: Warm, pink, dry. diffuse B/L UE rash
[2024-06-22] MEDS: DESENEX/MITRAZOL/ZEASORB 1 APPLIC TOPICAL ×2 (14:09→20:26)
[2024-06-22] MEDS: HYDROPHOR 1 APPLIC TOPICAL (14:09)
[2024-06-22] MEDS: TYLENOL 1000 MG PO ×3 (14:10→22:51)
[2024-06-22] MEDS: MIRALAX PO (14:11)
[2024-06-22 16:30] LABS: Glucose - Point of Care 139 mg/dl (70-99)
[2024-06-22] MEDS: LEVAQUIN 250 MG PO (16:30)
[2024-06-22] MEDS: COUMADIN 5 MG PO (16:30)
[2024-06-22] MEDS: PROTONIX 40 MG PO (20:26)
[2024-06-22 21:42] LABS: Glucose - Point of Care 147 mg/dl (70-99)
[2024-06-22] MEDS: MELATONIN 5 MG PO (22:51)
[2024-06-22 23:30] LABS: ANA, IgG Reflex to HEp-2 None Detected (None Detected)
[2024-06-23 01:03] LABS: Myeloperoxidase Antibody 0 AU/mL (0-19); Serine Protease-3, IgG 0 AU/mL (0-19)
[2024-06-23 03:41] VITALS: BP 158/89
[2024-06-23] MEDS: APRESOLINE 10 MG IV (04:04)
[2024-06-23 05:16] LABS: % Basophils 0.6 % (0-2); % Eosinophils 7.7 % (0-6); % Immature Granulocytes 0.8 % (0-0.5); % Lymphocytes 16.2 % (20.5-51.1); % Monocytes 15.3 % (1.7-9.3); % Neutrophils 59.4 % (42.2-75.2); Absolute Eosinophils 0.4 10^3/uL (0-0.7); Absolute Lymphocytes 0.9 10^3/uL (1.2-3.4); Absolute Monocytes 0.8 10^3/uL (0.1-0.6); Absolute Neutrophils 3.2 10^3/uL (1.4-6.5); Hematocrit 26.9 % (39.0-52.0); Hemoglobin 8.7 g/dL (13.0-18.0); Mean Corp Hgb Conc. 32.3 g/dL (33.0-37.0); Mean Corpuscular Hgb 28.1 pg (27.0-31.0); Mean Corpuscular Volume 86.8 fL (80.0-94.0); Mean Platelet Volume 9.7 fL (7.4-10.4); Nucleated Red Blood Cells % 0 % (-); Platelet Count 120 10^3/uL (130-400); White Blood Cell Count 5.3 10^3/uL (4.8-10.8)
[2024-06-23 05:27] LABS: INR 1.32; PT 16.9 Sec (11.4-14.6)
[2024-06-23 05:38] LABS: Blood Urea Nitrogen 27 mg/dl (9-20); Calcium 8.5 mg/dl (8.4-10.2); Carbon Dioxide 28 mmol/L (22-30); Chloride 101 mmol/L (98-107); Estimated Creatinine Clearance 24 ml/min; Glucose 135 mg/dl (70-99); Potassium 3.5 mmol/L (3.5-5.1); Sodium 136 mmol/L (135-145); eGFR 17.96
[2024-06-23 06:00] VITALS: BMI 42.1
[2024-06-23 07:25] VITALS: BP 140/59
[2024-06-23 08:44] LABS: Glucose - Point of Care 151 mg/dl (70-99)
[2024-06-23] MEDS: PROTONIX 40 MG PO ×2 (09:00→20:05)
[2024-06-23] MEDS: TOPROL XL 50 MG PO (09:02)
[2024-06-23] MEDS: TYLENOL 1000 MG PO ×4 (09:03→22:38)
[2024-06-23] MEDS: NOVOLOG FLEXPEN-LOW RESISTANCE 1 UNITS SC (09:04)
[2024-06-23] MEDS: DESENEX/MITRAZOL/ZEASORB 1 APPLIC TOPICAL ×2 (09:05→20:08)
[2024-06-23] MEDS: LIDOCAINE 4% PATCH 1 PATCH TOPICAL (09:08)
[2024-06-23] MEDS: HYDROPHOR 1 APPLIC TOPICAL (09:09)
--- NOTE | 2024-06-23 09:45 | CM ---
Addendum entered by Neela Walls 06/23/24 16:15:
Patient's spouse received a call from [facility] that they are out of network with her insurance and therefore nurse case management will need to locate another HD company possibly [employer], plan is for patient to go to skilled placement at [facility] or
alternative facility.
Original Note:
script manager reviewed patient's chart and reached out to [place] at [facility] this morning to confirm that patient was approved and accepted at [facility] in [place], per Nottingham patient has been approved. Patient's chair time is Wednesday
Wednesday 6:45 am, patient will need skilled placement per physical therapy and referral sent to [facility].
Plan; To follow up with [facility] for rehab, patient will need Auth for [place] rehab facility.
[2024-06-23 11:30] VITALS: BP 123/63
--- NOTE | 2024-06-23 11:39 | W.PN.CARDCBS ---
Addendum entered and electronically signed by Christian Quispe MD 06/23/24 12:54:
I saw and examined the patient.
The Corporate Safety Coordinator's note was reviewed and I agree with the note.
Comment: Briefly, 74-year-old man with past medical history of atrial fibrillation presenting with hemorrhagic shock in the setting of suspected GI bleed and resultant acute renal failure
Heart rates have been controlled in atrial fibrillation here on Toprol-XL 50 mg twice daily, would continue this dosing
Patient's Eliquis has been discontinued
Maintained on heparin drip earlier this hospitalization
Received first dose of warfarin last evening, would titrate warfarin dose to goal INR goal 2-3
We will sign off, please recall as needed
Outpatient cardiology follow-up has been arranged
Original Note:
Today's Communication / Plan
-
continue IV heparin to coumadin. 7.5mg ordered for tonight
follow INR
OP cardiac follow up arranged
Impression / Plan
-
.
Duct Cleaner: None, initially seen by Dr Vargas
Impression:
Presentation 06/09/2024 with altered mental status
TME
Hematemesis
Hemorrhagic shock with acute on chronic anemia, suspected GI bleeding
ARF
Hyperkalemia
Metabolic acidosis
Admission to 05/20-05/30/24 for sepsis, B/L cellulitis, ARF
Atrial fibrillation, diagnosed 05/2024
Hyponatremia
Morbid obesity
Suspected COLT
Type 2 diabetes mellitus
Hyperlipidemia
Hypertension
Lymphedema
B/L LE wounds
Alcohol use disorder
Poor self care
Proximal right thigh mass
ECHO 05/20/24: EF 65-70%, mod cLVH, mild RV enlargement, biatrial dilation, mild MR, trace TR, PAP 41mmHg, IV dilated, does not collapse, prominent anterior fat pad present, trivial pericardial effusion noted
Plan:
-remains in afib with overall controlled response on review of tele overnight. continue toprol 50mg BID
-continue IV heparin to coumadin. was given 5mg 06/22 and INR stable at 1.3. will give 7.5mg tonight. goal INR 2-3. of note, he is on levaquin presently.
-hgb 8.7 on 06/23
-would recommend weekly CBC and INR checks upon DC for several weeks. once DC'd from rehab, [facility] coumadin clinic will plan to follow INRs
-[id number] score of 4 for age, HTN, DM. HASBLED score calculated to be 6, high risk for bleeding. consider candidacy for outpatient watchman evaluation. also discussed if he tolerates coumadin without rebleeding events, could be considered for CV
if remains in afib - we will assess as OP
-continue volume mgmt through HD
-B/L LE cellulitis and discitis on MRI 05/27/2024. with B/L UE rash, improving. ID following.
-PT/OT
-OP cardiac follow up arranged
-d/w patient and at bedside
Progress Note - Duct Cleaner
Subjective
Date of Service: June 23, 2024
no complaints. on HD
Objective
Labs:
06/23/24 04:50
06/23/24 04:50
Labs
Hgb 8.7 g/dL (13.0-18.0) L 06/23/24 04:50
Hct 26.9 % (39.0-52.0) L 06/23/24 04:50
Plt Count 120 10^3/uL (130-400) L 06/23/24 04:50
PT 16.9 Sec (11.4-14.6) H 06/23/24 04:50
INR 1.32 06/23/24 04:50
APTT 33.2 Sec (23.4-35.0) 06/22/24 12:54
Sodium 136 mmol/L (135-145) 06/23/24 04:50
Potassium 3.5 mmol/L (3.5-5.1) 06/23/24 04:50
BUN 27 mg/dl (9-20) H 06/23/24 04:50
Creatinine 3.4 mg/dL (0.7-1.3) H 06/23/24 04:50
Glucose 135 mg/dl (70-99) H 06/23/24 04:50
Vital Signs and I&O:
Vital Signs
Temp Pulse Resp BP Pulse Ox
98.0 F 95 18 123/63 98
06/23/24 11:30 06/23/24 11:30 06/23/24 11:30 06/23/24 11:30 06/23/24 11:30
Vital Signs
Temp Pulse Resp BP Pulse Ox
98.0 F 95 18 123/63 98
06/23/24 11:30 06/23/24 11:30 06/23/24 11:30 06/23/24 11:30 06/23/24 11:30
Intake & Output
06/21/24 06/22/24 06/23/24 06/24/24
07:59 07:59 07:59 07:59
Intake Total 540 / 540 1370 / 1370 720 / 720
Output Total 950 / 950 525 / 525 525 / 525
Balance -410 / -410 845 / 845 195 / 195
Physical Exam
Physical Exam
GEN: No distress, awake, alert, oriented x3. obese. on HD
HEENT: supple, anicteric, mmm, eomi
LUNGS: CTA anterolaterally, no wheezes
CV: Irreg, S1/S2, no murmur
EXT: No cyanosis, clubbing. dressings to B/L LE
NEURO: Gross non-focal
SKIN: Warm, pink, dry. diffuse B/L UE rash, fading
--- NOTE | 2024-06-23 12:15 | W.PN.NEPH.HD ---
Assessment
-
Seen on HD. no Complaints. VSS, access tunnelled CVC.
rash improving slowly
requests different abx other than quinolone for fear of tendon issues
Progress Note - Hemodialysis
-
Date of Service: June 23, 2024
Duration: 30 minutes and 3 hours
Potassium Bath: 3
Calcium Bath: 2.5
Opti-Dialyzer: 160
Ultrafiltration: Other (2kg)
Blood Flow: 400
Dialysate Flow: 600
Heparin: 0
EPO: [id number] units
[2024-06-23] MEDS: RETACRIT 10000 UNITS IV (12:17)
--- NOTE | 2024-06-23 14:00 | W.PN.ID1 ---
Date of Service
Date of Service: June 23, 2024
Today's Communication
Change abx to meropenem 500mg IV q24.
Assessment / Plan
# Rash - possible Vasculitis. Stable, waxes and wanes. No progression.
# Thrombocytopenia
- diffuse, nonblanching hemorrhagic looking rash (macular, nonpalpable) over the bilateral upper extremities
- doubt ADR ->but Ertapenem dc'd on 06/20.
- WES, MPO, PR3, complements negative
- Anti-streptolysin O ab 400 (nl<200). The patient's rash is not typical of post-group A strep skin manisfestations.
# Possible L2/L3 discitis on 05/27/24 MRI, present on admission (pt had refused biopsy)
- Previously on cefepime, dc'd due to leukopenia
- 06/20 Discontinued Ertapenem due to rash
- 06/23 discontinue Levofloxacin 250mg po qd as per 's request due to concern for tendinitis, etc.
- Change abx to meropenem 500mg IV q24 for remaining course through 07/06/24.
Infusion sheet placed in patient's chart (yellow folder) to complete course at rehab, if he tolerates.
- R PICC line in place
# CLIFF - now HD dependent
- started HD 06/10
- Perm catheter placed 06/22.
# Acute Leukopenia - resolved 06/18
- cefepime dc'd 06/14.
# Significant chronic BLE lymphedema
- Continue compression
- recommend outpatient follow up with lymphedema center
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
Diabetes mellitus
Asthma
Afib on eliquis
Dyslipidemia
Hypertension
Class III obesity BMI 42
Possible L2/L3 discitis on IV cefepime through 07/06/24
Bilateral lower extremity lymphedema - goes to lymphedema PT
Chief Complaint
-: Other (possible discitis)
Subjective / Review of Systems
at bedside. She is concern about the potential multiple side effects from levofloxacin and prefer an alernative abx.
Rash on BUE slightly improving. BAck pain stable.
Vital Signs / Physical Exam
Vital Signs
Vital Signs
Temp Pulse Resp BP Pulse Ox
98.0 F 95 18 123/63 98
06/23/24 11:30 06/23/24 11:30 06/23/24 11:30 06/23/24 11:30 06/23/24 11:30
Physical Exam
Constitutional: Comfortable
Eyes: Sclera Anicteric
Cardiovascular: Irregular Rate and S1/S2
Pulmonary: Clear
Gastrointestinal: Soft, Non Tender, Non Distended and Normal Bowel Sounds
Genito-Urinary: Negative CVA Tenderness
Extremities: Edema (Lymphedema); Negative Erythema
Skin: Rash (Bilateral UE: confluent diffuse nonblanchable macular erythematous rash; was light pink this am, then darker now (getting HD))
Neurological: AO x 3
Objective Data
Lab Data
Lab Results
06/23/24 04:50
06/23/24 04:50
PT 16.9 Sec (11.4-14.6) H 06/23/24 04:50
INR 1.32 06/23/24 04:50
APTT 33.2 Sec (23.4-35.0) 06/22/24 12:54
Estimated Creat Clear 24 ml/min 06/23/24 04:50
Lactic Acid 1.5 mmol/L (0.7-2.0) 06/09/24 16:25
Total Bilirubin 0.6 mg/dl (0.2-1.3) 06/20/24 08:05
AST 15 U/L (17-59) L 06/20/24 08:05
ALT < 10 U/L (0-50) 06/20/24 08:05
Alkaline Phosphatase 99 U/L (38-126) 06/20/24 08:05
C-Reactive Protein 53.00 mg/L (0.0-10.00) H 06/22/24 05:21
Most recent labs reviewed.
Micro Results:
06/09/24 11:10 Blood Culture - Final
Blood/Venous No Growth - Final Report
06/09/24 10:48 Blood Culture - Final
Blood/Venous No Growth - Final Report
06/09/24 16:25 MRSA Screen - Final
Nose No Methicillin Resistant Staphylococcus aureus isolated.
06/09/24 11:10 Urine Culture - Final
Urine NO GROWTH
06/09/24 CXR: Mild to moderate elevation of the right hemidiaphragm, stable. There is a band of increased density in the left mid to lower lung, horizontal, stable appearance from prior examination, compatible with stable atelectasis and/or scarring.
Care Review
Plan reviewed with: Physician (Dr. Núñez)
[2024-06-23] MEDS: MIRALAX 17 GRAMS PO (14:07)
[2024-06-23] MEDS: NOVOLOG FLEXPEN-LOW RESISTANCE SC ×2 (14:07→17:33)
--- NOTE | 2024-06-23 14:17 | W.PN.HOSP.TC ---
Today's Communication/Plan
-
Assessment / Plan
Assessment / Plan
Physical Exam
General: No Apparent Distress, Comfortable and Conversant
HEENT: NormoCephalic, Moist mucous membranes, right chest PermCath
Respiratory: Clear and Non Labored Respirations
Cardiac: S1/S2 and Regular Rhythm; No Rub or Gallop
GI: Soft, Non Tender, Non Distended and Normal Bowel Sounds
Musculoskeletal: Bilateral lower extremity edema, Justus wraps in place, no deformity
Skin: Improving bilateral upper extremity rash
: NO Abraham
Neuro: Awake, Alert, Nonfocal/grossly intact
Psych: Calm and Intact Judgment/Insight
Assessment/Plan
74 years old male presented with altered mentation and was found to have signs of shock with recent GI bleeding/hematemesis
#Severe acute kidney injury(likely prerenal)/hyperkalemia/anion gap metabolic acidosis (due to lactic acidosis and CLIFF)
#Azotemia suspected due to upper GI bleed and acute kidney injury
-Held diuretics, metformin, blood pressure medication on admission.
-Patient seems to have chronic kidney disease stage IIIb from previous records, baseline creatinine is 1.3 to 1.6
-Despite IV fluids and red blood cell transfusion, renal function hadn't improved -- so dialysis started 06/10
-Abraham catheter removed due to lack of Output, however he is now making some urine
- PermCath placed 06/22
-Antistreptolysin O antibody positive
- Awaiting finalization of arrangements for longterm facility and outpatient dialysis, otherwise clinically stable for discharge
#Recent septic shock and treatment for bilateral lower extremity cellulitis, was on IV cefepime.
#Possible L2/L3 discitis on 05/27/24 MRI, present on admission, patient declined biopsy
-Plan was to do cefepime x 6 weeks through 07/06/24 but patient developed leukopenia, switched to Ertapenem, then developed rash on bilateral arms and so switched to Levaquin
-Doubt rash was related to antibiotics so has switched again, now treating with meropenem
-Chest x-ray No signs of erythema/swelling around PICC line
- Appreciate guidance from ID
#Rash of bilateral arms
- Small circular confluent nonblanching red rash on bilateral upper extremities worst on left hand, mildly pruritic, continues to improve today
- Unclear etiology, possible vasculitis
- Repeat labs showed improving platelet count and normal fibrinogen level
- Rash did not improve with Benadryl or steroid cream
-Antistreptolysin O antibody positive
- WES and complement levels normal
#Paroxysmal atrial fibrillation
-Recent diagnosis, had been anticoagulated with Eliquis which was discontinued due to significant GI bleeding
-Continue rate control with metoprolol succinate 50 mg p.o. twice daily
- Now on anticoagulation with warfarin, first dose 06/22, continue heparin bridging until INR therapeutic at 2-3
-Recent echo showed LVEF 65 to 70%, trace TR, biatrial dilatation, mild MR.
-Could eventually be considered for watchman device as outpatient
-Cardiology recommendations appreciated
#Hemorrhagic shock secondary to GI bleeding/hematemesis leading to acute blood loss anemia associated with Eliquis, likely upper GI bleeding from history
#Coagulopathy s/p Kcentra
-Resolved. Patient received a total of 5 units of PRBCs. Received reversal agents in ER. HGB stabilized.
-Continue Protonix 40 mg p.o. BID
-Tolerating p.o. diet
-Per GI and ICU doctors recommendations, pt will need EGD. and patient declined EGD due to stability of the patient and lack of active GI bleeding.
- Restarted oral anticoagulation with warfarin per patient/family preference with first dose evening of 06/22, will bridge with IV heparin until INR therapeutic
# Acute on chronic low back pain.
-This issue seemed to be the driving discomfort for the patient. He reports now less pain. No fever or leukocytosis. Blood culture is negative
-Increased Tylenol TID (high dose) to QID, trying to avoid IV Dilaudid PRN as possible
- Lidocaine patch
# Toxic metabolic encephalopathy
-Resolved
-Suspect due to uremia in the setting of renal failure
-Psychiatrist recommending trial of melatonin, if it does not work we can use low dose Ambien. So far, his sleep improved with melatonin.
-CT head on admission: no evidence for acute intracranial abnormality.
# Dysphagia, d/w speech , now on IDDS-6
# Hyponatremia
- Mild, clinically insignificant, stable
- Monitor
#Type 2 Diabetes Mellitus
-Hold metformin
-Sliding scale insulin as needed
#History of primary hypertension.
-Improved BP, Resuming BB
#Recent hospitalization with incidental finding of proximal R thigh mass:
-6.1 x 3.3 x 4.3cm solid lesion with internal vascularity in the proximal right thigh with differential including suspicious lymph node or soft tissue neoplasm.
-Patient and were aware of it, do not want to pursue further workup at this time
#Elevated proBNP
-proBNP 32831
-Volume removal via dialysis per nephrology
#Morbid Obesity
#History of stage II pressure coccygeal area injury
# Chronic history of bilateral lower extremity lymphedema
# History of alcohol use. No history of recent alcohol intake
#History of asthma on Dulera 200mcg BID at home with rescue albuterol - not currently having an exacerbation
#History of restrictive lung disease with post-bronchodilator FVC of 1.1L / 30% predicted via spirometry from 04/05/2024
# Significant BLE lymphedema
-Continue wound care and compression
Code Status: Full Code
DVT Prophylaxis: Anticoagulation with IV heparin bridging to warfarin
Anticipated Discharge: > 48 hours
Subjective/Interval History
-
Date of Service: June 23, 2024
Patient was seen and examined at bedside this morning. Feeling generally well. His rash on bilateral arms continues to fade. Plans for skilled rehab and outpatient dialysis are pending.
Objective Data
-
Labs:
Laboratory Results
06/23/24
04:50
WBC 5.3
Hgb 8.7 L
Hct 26.9 L
Plt Count 120 L
PT 16.9 H
INR 1.32
Sodium 136
Potassium 3.5
Chloride 101
Carbon Dioxide 28
BUN 27 H
Creatinine 3.4 H
Glucose 135 H
Calcium 8.5
Vital Signs:
Vital Signs
Temp Pulse Resp BP Pulse Ox
98.0 F 95 18 123/63 98
06/23/24 11:30 06/23/24 11:30 06/23/24 11:30 06/23/24 11:30 06/23/24 11:30
I&O
06/22/24 06/23/24 06/24/24
06:59 06:59 06:59
Intake Total 1140 / 1140 890 / 890 240 / 240
Output Total 650 / 650 525 / 525 125 / 125
Balance 490 / 490 365 / 365 115 / 115
Review of Systems
-
History Source: Patient
All other systems: Reviewed and negative
Physical Exam
-
General: No Apparent Distress
[2024-06-23 15:41] VITALS: BP 122/47
--- NOTE | 2024-06-23 16:12 | PTOTSP ---
Dysphagia Therapy
Impression: WFL-mild oral stage, no signs/reports of pharyngeal dysphagia or aspiration. Patient is appropriate to advance solids to regular/thin at this time w/ strategies below.
Recommend:
1. Regular, Thin
2. Meds whole in applesauce
3. Aspiration precautions: HOB upright to 90 degrees, pick soft/moist foods from menu, small sips/bites, slow rate, alternate sips/bites as needed for oral clearance
4. Oral care 3x daily
5. Brief dysphagia f/u x1 to ensure tolerance of diet upgrade and carryover of swallowing strategies
[2024-06-23] MEDS: MERREM 500 MG IV (16:51)
[2024-06-23] MEDS: STERILE WATER FOR INJECTION 10 ML IV (16:52)
[2024-06-23 17:22] LABS: Glucose - Point of Care 116 mg/dl (70-99)
[2024-06-23] MEDS: COUMADIN 2.5 MG PO (18:01)
[2024-06-23] MEDS: COUMADIN 5 MG PO (18:02)
[2024-06-23 19:57] VITALS: BP 92/43
[2024-06-23] MEDS: TOPROL XL PO (20:04)
[2024-06-23 21:24] LABS: Glucose - Point of Care 156 mg/dl (70-99)
[2024-06-23] MEDS: MELATONIN 5 MG PO (22:38)
[2024-06-23 22:57] VITALS: BP 116/57
[2024-06-24] VITALS (8 sets, daily range): BP systolic 106–169; BP diastolic 50–94; BMI 41.3
[2024-06-24 07:02] LABS: INR 1.91
[2024-06-24 08:18] LABS: Glucose - Point of Care 154 mg/dl (70-99)
--- NOTE | 2024-06-24 09:12 | W.PN.NEPH.PH ---
Today's Communication / Plan
-
Follow BMP
Assessment/Plan
-
Impression:
Encephalopathy
Anemia with hematemesis on chronic oral anticoagulation (5.6)
History of recently diagnosed atrial fibrillation on Eliquis
Acute renal failure
Hyperkalemia
Metabolic acidosis (gapped and non gapped)
History of bilateral cellulitis and discitis on cefepime
History of alcohol use
Chronic lymphedema
macular rash
Plan:
HD Wednesday
hold on any more lasix given that he is nonoliguric
abx adjusted per ID
rehab placement and HD at [facility]
Follow BMP over weekend off dialysis
d/w pt
-
-
Date of Service: June 24, 2024
CC / HPI / ROS
-
Chief Complaint:
Acute kidney
History of Present Illness:
Acute kidney injury now dialysis dependent
tolerated HD yesterday
Hemodynamically stable
Hemoglobin stable at 8.7
plts low but stable 120
Review of Systems:
nonoliguric
no CP/SOB
Rash improving
Labs
-
Labs:
WBC 5.3 10^3/uL (4.8-10.8) 06/23/24 04:50
RBC 3.10 10^6/uL (4.70-6.10) L 06/23/24 04:50
Hgb 8.7 g/dL (13.0-18.0) L 06/23/24 04:50
Hct 26.9 % (39.0-52.0) L 06/23/24 04:50
Plt Count 120 10^3/uL (130-400) L 06/23/24 04:50
Sodium 136 mmol/L (135-145) 06/23/24 04:50
Potassium 3.5 mmol/L (3.5-5.1) 06/23/24 04:50
Chloride 101 mmol/L (98-107) 06/23/24 04:50
Carbon Dioxide 28 mmol/L (22-30) 06/23/24 04:50
BUN 27 mg/dl (9-20) H 06/23/24 04:50
Creatinine 3.4 mg/dL (0.7-1.3) H 06/23/24 04:50
eGFR 17.96 06/23/24 04:50
Glucose 135 mg/dl (70-99) H 06/23/24 04:50
Calcium 8.5 mg/dl (8.4-10.2) 06/23/24 04:50
Phosphorus 4.0 mg/dl (2.5-4.5) 06/21/24 06:03
Fdr-T-Wdabchjrzar Pept > 28962 pg/ml 06/12/24 03:15
Albumin 2.3 g/dl (3.5-5.0) L 06/21/24 06:03
Physical Exam
-
Vital Signs:
Vital Signs
Temp Pulse Resp BP Pulse Ox
97.7 F 92 18 161/60 96
06/24/24 07:00 06/24/24 07:00 06/24/24 07:00 06/24/24 07:00 06/24/24 07:00
Cardiovascular:: Regular rate and rhythm
Respiratory:: Bilateral: Coarse
Lung Excursion:: Normal
Abdomen:: Nontender and Soft
Bowel Sounds:: Normal
Extremity Edema:: +2: Bilateral:
[2024-06-24] MEDS: TOPROL XL 50 MG PO ×2 (10:10→20:56)
[2024-06-24] MEDS: LIDOCAINE 4% PATCH 1 PATCH TOPICAL (10:11)
[2024-06-24] MEDS: TYLENOL 1000 MG PO ×4 (10:11→23:06)
[2024-06-24] MEDS: PROTONIX 40 MG PO ×2 (10:11→20:55)
[2024-06-24] MEDS: NOVOLOG FLEXPEN-LOW RESISTANCE 1 UNITS SC (10:12)
[2024-06-24] MEDS: DESENEX/MITRAZOL/ZEASORB 1 APPLIC TOPICAL ×2 (10:13→20:57)
[2024-06-24] MEDS: HYDROPHOR 1 APPLIC TOPICAL (10:16)
--- NOTE | 2024-06-24 13:08 | W.PN.HOSP.TC ---
Today's Communication/Plan
-
Assessment / Plan
Assessment / Plan
Physical Exam
General: No Apparent Distress, Comfortable and Conversant
HEENT: NormoCephalic, Moist mucous membranes, right chest PermCath
Respiratory: Clear and Non Labored Respirations
Cardiac: S1/S2 and Regular Rhythm; No Rub or Gallop
GI: Soft, Non Tender, Non Distended and Normal Bowel Sounds
Musculoskeletal: Bilateral lower extremity edema, Justus wraps in place, no deformity
Skin: Improving bilateral upper extremity rash
: NO Abraham
Neuro: Awake, Alert, Nonfocal/grossly intact
Psych: Calm and Intact Judgment/Insight
Assessment/Plan
74 years old male presented with altered mentation and was found to have signs of shock with recent GI bleeding/hematemesis
#Severe acute kidney injury(likely prerenal)/hyperkalemia/anion gap metabolic acidosis (due to lactic acidosis and CLIFF)
#Azotemia suspected due to upper GI bleed and acute kidney injury
-Held diuretics, metformin, blood pressure medication on admission.
-Patient seems to have chronic kidney disease stage IIIb from previous records, baseline creatinine is 1.3 to 1.6
-Despite IV fluids and red blood cell transfusion, renal function hadn't improved -- so dialysis started 06/10
-Abraham catheter removed due to lack of Output, however he is now making some urine
- PermCath placed 06/22
- Dialysis MWF
- Awaiting finalization of arrangements for [facility] facility and outpatient dialysis, otherwise clinically stable for discharge
#Recent septic shock and treatment for bilateral lower extremity cellulitis, was on IV cefepime.
#Possible L2/L3 discitis on 05/27/24 MRI, present on admission, patient declined biopsy
-Plan was to do cefepime x 6 weeks through 07/06/24 but patient developed leukopenia, switched to Ertapenem, then developed rash on bilateral arms and so switched to Levaquin
-Doubt rash was related to antibiotics and family was concerned about side effects of fluoroquinolones, now treating with meropenem
-Chest x-ray No signs of erythema/swelling around PICC line
- Appreciate guidance from ID
#Rash of bilateral arms
- Small circular confluent nonblanching red rash on bilateral upper extremities worst on left hand, mildly pruritic, continues to improve today
- Unclear etiology, possible vasculitis
- Repeat labs showed improving platelet count and normal fibrinogen level
- Rash did not improve with Benadryl or steroid cream
-Antistreptolysin O antibody positive
- WES and complement levels normal
#Paroxysmal atrial fibrillation
-Recent diagnosis, had been anticoagulated with Eliquis which was discontinued due to significant GI bleeding
-Continue rate control with metoprolol succinate 50 mg p.o. twice daily
- Now on anticoagulation with warfarin, first dose 06/22, continue heparin bridging until INR therapeutic at 2-3, INR today 1.9
-Recent echo showed LVEF 65 to 70%, trace TR, biatrial dilatation, mild MR.
-Could eventually be considered for watchman device as outpatient
-Cardiology recommendations appreciated
#Hemorrhagic shock secondary to GI bleeding/hematemesis leading to acute blood loss anemia associated with Eliquis, likely upper GI bleeding from history
#Coagulopathy s/p Kcentra
-Resolved. Patient received a total of 5 units of PRBCs. Received reversal agents in ER. HGB stabilized.
-Continue Protonix 40 mg p.o. BID
-Tolerating p.o. diet
-Per GI and ICU doctors recommendations, pt will need EGD. and patient declined EGD due to stability of the patient and lack of active GI bleeding.
- Restarted oral anticoagulation with warfarin per patient/family preference with first dose evening of 06/22, will bridge with IV heparin until INR therapeutic, INR 1.9 today
# Acute on chronic low back pain.
-This issue seemed to be the driving discomfort for the patient. He reports now less pain. No fever or leukocytosis. Blood culture is negative
-Increased Tylenol TID (high dose) to QID, trying to avoid IV Dilaudid PRN as possible
- Lidocaine patch
# Toxic metabolic encephalopathy
-Resolved
-Suspect due to uremia in the setting of renal failure
-Psychiatrist recommending trial of melatonin, if it does not work we can use low dose Ambien. So far, his sleep improved with melatonin.
-CT head on admission: no evidence for acute intracranial abnormality.
# Dysphagia
- Improved, now tolerating regular diet
# Hyponatremia
- Mild, clinically insignificant, stable
- Monitor
#Type 2 Diabetes Mellitus
-Hold metformin
-Sliding scale insulin as needed
#History of primary hypertension.
-Improved BP, Resuming BB
#Recent hospitalization with incidental finding of proximal R thigh mass:
-6.1 x 3.3 x 4.3cm solid lesion with internal vascularity in the proximal right thigh with differential including suspicious lymph node or soft tissue neoplasm.
-Patient and were aware of it, do not want to pursue further workup at this time
#Elevated proBNP
-proBNP 75146
-Volume removal via dialysis per nephrology
#Morbid Obesity
#History of stage II pressure coccygeal area injury
# Chronic history of bilateral lower extremity lymphedema
# History of alcohol use. No history of recent alcohol intake
#History of asthma on Dulera 200mcg BID at home with rescue albuterol - not currently having an exacerbation
#History of restrictive lung disease with post-bronchodilator FVC of 1.1L / 30% predicted via spirometry from 04/05/2024
# Significant BLE lymphedema
-Continue wound care and compression
Code Status: Full Code
DVT Prophylaxis: Anticoagulation with IV heparin bridging to warfarin
Anticipated Discharge: > 48 hours
Subjective/Interval History
-
Date of Service: June 24, 2024
Patient was seen and examined at bedside this morning. Comfortable. Bilateral arm rash continues to fade. Discussed the joys of live music.
Objective Data
-
Labs:
Laboratory Results
06/24/24
06:34
PT 22.0 H
INR 1.91
Vital Signs:
Vital Signs
Temp Pulse Resp BP Pulse Ox
98.0 F 97 18 138/81 96
06/24/24 11:00 06/24/24 11:00 06/24/24 11:00 06/24/24 11:00 06/24/24 11:00
I&O
06/23/24 06/24/24 06/25/24
06:59 06:59 06:59
Intake Total 890 / 890 1200 / 1200
Output Total 525 / 525 225 / 225 100 / 100
Balance 365 / 365 975 / 975 -100 / -100
Review of Systems
-
History Source: Patient
All other systems: Reviewed and negative
Physical Exam
-
General: No Apparent Distress
[2024-06-24] MEDS: NOVOLOG FLEXPEN-LOW RESISTANCE SC ×2 (14:35→16:59)
[2024-06-24] MEDS: MIRALAX 17 GRAMS PO (14:36)
[2024-06-24] MEDS: MERREM 500 MG IV (16:54)
[2024-06-24] MEDS: STERILE WATER FOR INJECTION 10 ML IV (16:55)
[2024-06-24 16:59] LABS: Glucose - Point of Care 144 mg/dl (70-99)
[2024-06-24] MEDS: COUMADIN 5 MG PO (19:09)
[2024-06-24 21:30] LABS: Glucose - Point of Care 187 mg/dl (70-99)
[2024-06-24] MEDS: MELATONIN 5 MG PO (23:06)
[2024-06-25 03:26] VITALS: BP 119/63
[2024-06-25 04:50] LABS: INR 2.59; PT 27.8 Sec (11.4-14.6)
[2024-06-25 05:05] LABS: Blood Urea Nitrogen 26 mg/dl (9-20); Carbon Dioxide 27 mmol/L (22-30); Chloride 101 mmol/L (98-107); Estimated Creatinine Clearance 28 ml/min; Glucose 144 mg/dl (70-99); Potassium 3.7 mmol/L (3.5-5.1); Sodium 135 mmol/L (135-145); eGFR 20.87
[2024-06-25 06:00] VITALS: BMI 41.0
[2024-06-25 07:35] VITALS: BP 125/73
[2024-06-25 08:19] LABS: Glucose - Point of Care 153 mg/dl (70-99)
[2024-06-25] MEDS: NOVOLOG FLEXPEN-LOW RESISTANCE 1 UNITS SC ×2 (08:30→12:55)
[2024-06-25] MEDS: DESENEX/MITRAZOL/ZEASORB 1 APPLIC TOPICAL ×2 (08:31→20:36)
[2024-06-25] MEDS: HYDROPHOR 1 APPLIC TOPICAL (08:32)
[2024-06-25] MEDS: LIDOCAINE 4% PATCH 1 PATCH TOPICAL (08:33)
[2024-06-25] MEDS: PROTONIX 40 MG PO ×2 (08:35→20:36)
[2024-06-25] MEDS: TOPROL XL 50 MG PO ×2 (08:35→20:36)
[2024-06-25 11:15] VITALS: BP 131/67
[2024-06-25] MEDS: TYLENOL PO (11:49)
[2024-06-25 12:13] LABS: Glucose - Point of Care 157 mg/dl (70-99)
[2024-06-25] MEDS: TYLENOL 1000 MG PO ×2 (12:55→18:35)
--- NOTE | 2024-06-25 12:56 | W.PN.NEPH.PH ---
Today's Communication / Plan
-
HD tomorrow
Assessment/Plan
-
Impression:
Encephalopathy
Anemia with hematemesis on chronic oral anticoagulation (5.6)
History of recently diagnosed atrial fibrillation on Eliquis
Acute renal failure
Hyperkalemia
Metabolic acidosis (gapped and non gapped)
History of bilateral cellulitis and discitis on cefepime
History of alcohol use
Chronic lymphedema
macular rash
Plan:
HD tomorrow
abx adjusted per ID
rehab placement and HD at [facility] (question insurance issues? I will clarify with unit)
Follow BMP over weekend off dialysis
d/w pt and
-
-
Date of Service: June 25, 2024
CC / HPI / ROS
-
Chief Complaint:
Acute kidney injury
History of Present Illness:
Acute kidney injury now dialysis dependent
tolerated HD Wednesday
Hemodynamically stable
Hemoglobin stable
Creatinine 3.0 after dialysis
Review of Systems:
nonoliguric
no CP/SOB
Rash improving
Labs
-
Labs:
WBC 5.3 10^3/uL (4.8-10.8) 06/23/24 04:50
RBC 3.10 10^6/uL (4.70-6.10) L 06/23/24 04:50
Hgb 8.7 g/dL (13.0-18.0) L 06/23/24 04:50
Hct 26.9 % (39.0-52.0) L 06/23/24 04:50
Plt Count 120 10^3/uL (130-400) L 06/23/24 04:50
Sodium 135 mmol/L (135-145) 06/25/24 04:15
Potassium 3.7 mmol/L (3.5-5.1) 06/25/24 04:15
Chloride 101 mmol/L (98-107) 06/25/24 04:15
Carbon Dioxide 27 mmol/L (22-30) 06/25/24 04:15
BUN 26 mg/dl (9-20) H 06/25/24 04:15
Creatinine 3.0 mg/dL (0.7-1.3) H 06/25/24 04:15
eGFR 20.87 06/25/24 04:15
Glucose 144 mg/dl (70-99) H 06/25/24 04:15
Calcium 8.0 mg/dl (8.4-10.2) L 06/25/24 04:15
Phosphorus 4.0 mg/dl (2.5-4.5) 06/21/24 06:03
Rcr-K-Plgtrgmwjbl Pept > 62261 pg/ml 06/12/24 03:15
Albumin 2.3 g/dl (3.5-5.0) L 06/21/24 06:03
Physical Exam
-
Vital Signs:
Vital Signs
Temp Pulse Resp BP Pulse Ox
97.9 F 87 22 125/73 97
06/25/24 07:35 06/25/24 07:35 06/25/24 07:35 06/25/24 07:35 06/25/24 07:35
Cardiovascular:: Regular rate and rhythm
Respiratory:: Bilateral: CTA
Lung Excursion:: Normal
Abdomen:: Nontender and Soft
Bowel Sounds:: Normal
Extremity Edema:: +1: Bilateral:
--- NOTE | 2024-06-25 15:26 | W.PN.HOSP.TC ---
Today's Communication/Plan
-
Assessment / Plan
Assessment / Plan
Physical Exam
General: No Apparent Distress, Comfortable and Conversant
HEENT: NormoCephalic, Moist mucous membranes, right chest PermCath
Respiratory: Clear and Non Labored Respirations
Cardiac: S1/S2 and Regular Rhythm; No Rub or Gallop
GI: Soft, Non Tender, Non Distended and Normal Bowel Sounds
Musculoskeletal: Bilateral lower extremity edema, Justus wraps in place, no deformity
Skin: Rash on bilateral upper extremities mostly resolved
: NO Abraham
Neuro: Awake, Alert, Nonfocal/grossly intact
Psych: Calm and Intact Judgment/Insight
Assessment/Plan
74 years old male presented with altered mentation and was found to have signs of shock with recent GI bleeding/hematemesis
#Severe acute kidney injury(likely prerenal)/hyperkalemia/anion gap metabolic acidosis (due to lactic acidosis and CLIFF)
#Azotemia suspected due to upper GI bleed and acute kidney injury
-Held diuretics, metformin, blood pressure medication on admission.
-Patient seems to have chronic kidney disease stage IIIb from previous records, baseline creatinine is 1.3 to 1.6
-Despite IV fluids and red blood cell transfusion, renal function hadn't improved -- so dialysis started 06/10
-Abraham catheter removed due to lack of Output, however he is now making some urine
- PermCath placed 06/22
- Dialysis MWF
- Awaiting finalization of arrangements for retirement facility and outpatient dialysis, otherwise clinically stable for discharge
#Recent septic shock and treatment for bilateral lower extremity cellulitis, was on IV cefepime.
#Possible L2/L3 discitis on 05/27/24 MRI, present on admission, patient declined biopsy
-Plan was to do cefepime x 6 weeks through 07/06/24 but patient developed leukopenia, switched to Ertapenem, then developed rash on bilateral arms and so switched to Levaquin
-Doubt rash was related to antibiotics and family was concerned about side effects of fluoroquinolones, now treating with meropenem
-Chest x-ray No signs of erythema/swelling around PICC line
- Appreciate guidance from ID
#Rash of bilateral arms
- Small circular confluent nonblanching red rash on bilateral upper extremities worst on left hand, mildly pruritic, continues to improve today
- Unclear etiology, possible vasculitis
- Repeat labs showed improving platelet count and normal fibrinogen level
- Rash did not improve with Benadryl or steroid cream
-Antistreptolysin O antibody positive
- WES and complement levels normal
#Paroxysmal atrial fibrillation
-Recent diagnosis, had been anticoagulated with Eliquis which was discontinued due to significant GI bleeding
-Continue rate control with metoprolol succinate 50 mg p.o. twice daily
- Now on anticoagulation with warfarin, first dose 06/22, INR therapeutic at 2.59, no longer requiring heparin bridging, continue monitoring INR
-Recent echo showed LVEF 65 to 70%, trace TR, biatrial dilatation, mild MR.
-Could eventually be considered for watchman device as outpatient
-Cardiology recommendations appreciated
#Hemorrhagic shock secondary to GI bleeding/hematemesis leading to acute blood loss anemia associated with Eliquis, likely upper GI bleeding from history
#Coagulopathy s/p Kcentra
-Resolved. Patient received a total of 5 units of PRBCs. Received reversal agents in ER. HGB stabilized.
-Continue Protonix 40 mg p.o. BID
-Tolerating p.o. diet
-Per GI and ICU doctors recommendations, pt will need EGD. and patient declined EGD due to stability of the patient and lack of active GI bleeding.
- Restarted oral anticoagulation with warfarin per patient/family preference with first dose evening of 06/22, now therapeutic with INR 2.59, heparin bridging discontinued
# Acute on chronic low back pain.
-This issue seemed to be the driving discomfort for the patient. He reports now less pain. No fever or leukocytosis. Blood culture is negative
-Increased Tylenol TID (high dose) to QID, trying to avoid IV Dilaudid PRN as possible
- Lidocaine patch
# Toxic metabolic encephalopathy
-Resolved
-Suspect due to uremia in the setting of renal failure
-Psychiatrist recommending trial of melatonin, if it does not work we can use low dose Ambien. So far, his sleep improved with melatonin.
-CT head on admission: no evidence for acute intracranial abnormality.
# Dysphagia
- Improved, now tolerating regular diet
# Hyponatremia
- Mild, clinically insignificant, stable
- Monitor
#Type 2 Diabetes Mellitus
-Hold metformin
-Sliding scale insulin as needed
#History of primary hypertension.
-Improved BP, Resuming BB
#Recent hospitalization with incidental finding of proximal R thigh mass:
-6.1 x 3.3 x 4.3cm solid lesion with internal vascularity in the proximal right thigh with differential including suspicious lymph node or soft tissue neoplasm.
-Patient and were aware of it, do not want to pursue further workup at this time
#Elevated proBNP
-proBNP 92552
-Volume removal via dialysis per nephrology
#Morbid Obesity
#History of stage II pressure coccygeal area injury
# Chronic history of bilateral lower extremity lymphedema
# History of alcohol use. No history of recent alcohol intake
#History of asthma on Dulera 200mcg BID at home with rescue albuterol - not currently having an exacerbation
#History of restrictive lung disease with post-bronchodilator FVC of 1.1L / 30% predicted via spirometry from 04/05/2024
# Significant BLE lymphedema
-Continue wound care and compression
Code Status: Full Code
DVT Prophylaxis: Anticoagulation with warfarin
Anticipated Discharge: 24 - 48 hours
Subjective/Interval History
-
Date of Service: June 25, 2024
Patient was seen and examined at bedside this morning. Comfortable. Rash on bilateral arms has dramatically improved. Awaiting outpatient rehab and dialysis arrangements.
Objective Data
-
Labs:
Laboratory Results
06/25/24
04:15
PT 27.8 H
INR 2.59
Sodium 135
Potassium 3.7
Chloride 101
Carbon Dioxide 27
BUN 26 H
Creatinine 3.0 H
Glucose 144 H
Calcium 8.0 L
Vital Signs:
Vital Signs
Temp Pulse Resp BP Pulse Ox
97.8 F 97 22 131/67 97
06/25/24 11:15 06/25/24 11:15 06/25/24 11:15 06/25/24 11:15 06/25/24 11:15
I&O
06/24/24 06/25/24 06/26/24
06:59 06:59 06:59
Intake Total 1200 / 1200
Output Total 225 / 225 250 / 250
Balance 975 / 975 -250 / -250
Review of Systems
-
History Source: Patient
All other systems: Reviewed and negative
Physical Exam
-
General: No Apparent Distress
[2024-06-25 15:40] VITALS: BP 117/68
[2024-06-25] MEDS: MERREM 500 MG IV (15:59)
[2024-06-25] MEDS: MIRALAX 17 GRAMS PO (15:59)
[2024-06-25] MEDS: STERILE WATER FOR INJECTION 10 ML IV (15:59)
[2024-06-25 17:09] LABS: Glucose - Point of Care 129 mg/dl (70-99)
[2024-06-25] MEDS: NOVOLOG FLEXPEN-LOW RESISTANCE SC (18:33)
[2024-06-25] MEDS: COUMADIN 5 MG PO (18:35)
[2024-06-25 19:44] VITALS: BP 108/62
[2024-06-25 21:20] LABS: Glucose - Point of Care 176 mg/dl (70-99)
[2024-06-25 23:30] VITALS: BP 125/64
[2024-06-26] VITALS (7 sets, daily range): BP systolic 96–138; BP diastolic 59–81; PULSE 88; O2SAT 98; BMI 41.5
[2024-06-26] MEDS: TYLENOL 1000 MG PO ×4 (00:12→21:24)
[2024-06-26] MEDS: MELATONIN 5 MG PO ×2 (00:12→21:24)
[2024-06-26 06:16] LABS: INR 2.81; PT 29.5 Sec (11.4-14.6)
[2024-06-26 08:44] LABS: Glucose - Point of Care 137 mg/dl (70-99)
[2024-06-26] MEDS: NOVOLOG FLEXPEN-LOW RESISTANCE SC ×2 (08:57→16:52)
--- NOTE | 2024-06-26 09:00 | W.PN.HOSP.TC ---
Today's Communication/Plan
-
dc planning
Assessment / Plan
Assessment / Plan
Physical Exam
General: No Apparent Distress, Comfortable and Conversant
HEENT: NormoCephalic, Moist mucous membranes, right chest PermCath
Respiratory: Clear and Non Labored Respirations
Cardiac: S1/S2 and Regular Rhythm; No Rub or Gallop
GI: Soft, Non Tender, Non Distended and Normal Bowel Sounds
Musculoskeletal: Bilateral lower extremity edema, Justus wraps in place, no deformity
Skin: Rash on bilateral upper extremities mostly resolved
: NO Abraham
Neuro: Awake, Alert, Nonfocal/grossly intact
Psych: Calm and Intact Judgment/Insight
Assessment/Plan
74 years old male presented with altered mentation and was found to have signs of shock with recent GI bleeding/hematemesis
#Severe acute kidney injury(likely prerenal)/hyperkalemia/anion gap metabolic acidosis (due to lactic acidosis and CLIFF)
#Azotemia suspected due to upper GI bleed and acute kidney injury
-Held diuretics, metformin, blood pressure medication on admission.
-Patient seems to have chronic kidney disease stage IIIb from previous records, baseline creatinine is 1.3 to 1.6
-Despite IV fluids and red blood cell transfusion, renal function hadn't improved -- so dialysis started 06/10
-Abraham catheter removed due to lack of Output, however he is now making some urine
- PermCath placed 06/22
- Dialysis MWF
- Awaiting finalization of arrangements for residential facility and outpatient dialysis, otherwise clinically stable for discharge
#Recent septic shock and treatment for bilateral lower extremity cellulitis, was on IV cefepime.
#Possible L2/L3 discitis on 05/27/24 MRI, present on admission, patient declined biopsy
-Plan was to do cefepime x 6 weeks through 07/06/24 but patient developed leukopenia, switched to Ertapenem, then developed rash on bilateral arms and so switched to Levaquin
-Doubt rash was related to antibiotics and family was concerned about side effects of fluoroquinolones, now treating with meropenem
-Chest x-ray No signs of erythema/swelling around PICC line
- Appreciate guidance from ID
#Rash of bilateral arms
- Small circular confluent nonblanching red rash on bilateral upper extremities worst on left hand, mildly pruritic, continues to improve today
- Unclear etiology, possible vasculitis
- Repeat labs showed improving platelet count and normal fibrinogen level
- Rash did not improve with Benadryl or steroid cream
-Antistreptolysin O antibody positive
- WES and complement levels normal
#Paroxysmal atrial fibrillation
-Recent diagnosis, had been anticoagulated with Eliquis which was discontinued due to significant GI bleeding
-Continue rate control with metoprolol succinate 50 mg p.o. twice daily
- Now on anticoagulation with warfarin, first dose 06/22, INR therapeutic at 2.59, no longer requiring heparin bridging, continue monitoring INR
-Recent echo showed LVEF 65 to 70%, trace TR, biatrial dilatation, mild MR.
-Could eventually be considered for watchman device as outpatient
-Cardiology recommendations appreciated
#Hemorrhagic shock secondary to GI bleeding/hematemesis leading to acute blood loss anemia associated with Eliquis, likely upper GI bleeding from history
#Coagulopathy s/p Kcentra
-Resolved. Patient received a total of 5 units of PRBCs. Received reversal agents in ER. HGB stabilized.
-Continue Protonix 40 mg p.o. BID
-Tolerating p.o. diet
-Per GI and ICU doctors recommendations, pt will need EGD. and patient declined EGD due to stability of the patient and lack of active GI bleeding.
- Restarted oral anticoagulation with warfarin per patient/family preference with first dose evening of 06/22, now therapeutic with INR 2.59, heparin bridging discontinued
# Acute on chronic low back pain.
-This issue seemed to be the driving discomfort for the patient. He reports now less pain. No fever or leukocytosis. Blood culture is negative
-Increased Tylenol TID (high dose) to QID, trying to avoid IV Dilaudid PRN as possible
- Lidocaine patch
# Toxic metabolic encephalopathy
-Resolved
-Suspect due to uremia in the setting of renal failure
-Psychiatrist recommending trial of melatonin, if it does not work we can use low dose Ambien. So far, his sleep improved with melatonin.
-CT head on admission: no evidence for acute intracranial abnormality.
# Dysphagia
- Improved, now tolerating regular diet
# Hyponatremia
- Mild, clinically insignificant, stable
- Monitor
#Type 2 Diabetes Mellitus
-Hold metformin
-Sliding scale insulin as needed
#History of primary hypertension.
-Improved BP, Resuming BB
#Recent hospitalization with incidental finding of proximal R thigh mass:
-6.1 x 3.3 x 4.3cm solid lesion with internal vascularity in the proximal right thigh with differential including suspicious lymph node or soft tissue neoplasm.
-Patient and were aware of it, do not want to pursue further workup at this time
#Elevated proBNP
-proBNP 64342
-Volume removal via dialysis per nephrology
#Morbid Obesity
#History of stage II pressure coccygeal area injury
# Chronic history of bilateral lower extremity lymphedema
# History of alcohol use. No history of recent alcohol intake
#History of asthma on Dulera 200mcg BID at home with rescue albuterol - not currently having an exacerbation
#History of restrictive lung disease with post-bronchodilator FVC of 1.1L / 30% predicted via spirometry from 04/05/2024
# Significant BLE lymphedema
-Continue wound care and compression
Code Status: Full Code
DVT Prophylaxis: Anticoagulation with warfarin
Total time spent to see the patient, examine the patient, review data and lab results, discuss treatment plan with patient and nursing staff around 55 minutes
Anticipated Discharge: Within 24 hours
Subjective/Interval History
-
Date of Service: June 26, 2024
Objective Data
-
Labs:
Laboratory Results
06/26/24
05:24
PT 29.5 H
INR 2.81
Vital Signs:
Vital Signs
Temp Pulse Resp BP Pulse Ox
97.8 F 82 20 98/81 99
06/26/24 03:43 06/26/24 03:43 06/26/24 03:43 06/26/24 03:43 06/26/24 03:43
I&O
06/25/24 06/26/24 06/27/24
06:59 06:59 06:59
Intake Total 720 / 720
Output Total 250 / 250 450 / 450
Balance -250 / -250 270 / 270
[2024-06-26] MEDS: LIDOCAINE 4% PATCH 1 PATCH TOPICAL (09:08)
[2024-06-26] MEDS: PROTONIX 40 MG PO ×2 (09:09→21:00)
[2024-06-26] MEDS: TOPROL XL 50 MG PO (09:09)
--- NOTE | 2024-06-26 09:40 | CM ---
Addendum entered by Neela Walls 06/26/24 15:44:
Referral sent to Admissions at [facility] [phone] .
Original Note:
performing arts road manager spoke with Troy in admissions at [facility] and they can accept patient and they requested that block and case maker reach out to [facility] in [place], block and case maker spoke with Jerald at [facility] and sent a referral Fax [phone]
[phone]
Plan; Skilled placement at [facility] with [facility], pending approval.
[2024-06-26 11:51] LABS: Glucose - Point of Care 260 mg/dl (70-99)
[2024-06-26] MEDS: HYDROPHOR 1 APPLIC TOPICAL (12:11)
[2024-06-26] MEDS: NOVOLOG FLEXPEN-LOW RESISTANCE 3 UNITS SC (12:11)
[2024-06-26] MEDS: DESENEX/MITRAZOL/ZEASORB 1 APPLIC TOPICAL ×2 (12:12→21:00)
--- NOTE | 2024-06-26 13:28 | W.PN.NEPH.HD ---
Progress Note - Hemodialysis
-
Date of Service: June 26, 2024
Duration: 30 minutes and 3 hours
Potassium Bath: 3
Calcium Bath: 2.5
Opti-Dialyzer: 160
Ultrafiltration: Other (2kg)
Blood Flow: 400
Dialysate Flow: 600
Heparin: 0
EPO: 81121 units
[2024-06-26 13:33] LABS: Blood Urea Nitrogen 33 mg/dl (9-20); Calcium 7.8 mg/dl (8.4-10.2); Carbon Dioxide 25 mmol/L (22-30); Chloride 100 mmol/L (98-107); Estimated Creatinine Clearance 31 ml/min; Glucose 231 mg/dl (70-99); Potassium 3.5 mmol/L (3.5-5.1); Sodium 136 mmol/L (135-145); eGFR 23.68
[2024-06-26] MEDS: RETACRIT 10000 UNITS IV (14:16)
[2024-06-26 14:49] LABS: Hemoglobin 8.4 g/dL (13.0-18.0); Mean Corp Hgb Conc. 32.3 g/dL (33.0-37.0); Mean Corpuscular Hgb 28.4 pg (27.0-31.0); Mean Corpuscular Volume 87.8 fL (80.0-94.0); Mean Platelet Volume 9.2 fL (7.4-10.4); Platelet Count 148 10^3/uL (130-400); Red Blood Cell Count 2.96 10^6/uL (4.70-6.10); White Blood Cell Count 5.5 10^3/uL (4.8-10.8)
--- NOTE | 2024-06-26 15:07 | W.PN.ID1 ---
Date of Service
Date of Service: June 26, 2024
Today's Communication
Continue antibiotics
Assessment / Plan
# Rash - possible Vasculitis. Stable, waxes and wanes. No progression.
# Thrombocytopenia
- diffuse, nonblanching hemorrhagic looking rash (macular, nonpalpable) over the bilateral upper extremities
- doubt ADR ->but Ertapenem dc'd on 06/20.
- WES, MPO, PR3, complements negative
- Anti-streptolysin O ab 400 (nl<200). The patient's rash is not typical of post-group A strep skin manisfestations.
# Possible L2/L3 discitis on 05/27/24 MRI, present on admission (pt had refused biopsy)
- Previously on cefepime, dc'd due to leukopenia
- 06/20 Discontinued Ertapenem due to rash
- 06/23 discontinue Levofloxacin 250mg po qd as per 's request due to concern for tendinitis, etc.
- Continue meropenem 500mg IV q24 for remaining course through 07/06/24.
Infusion sheet placed in patient's chart (yellow folder) to complete course at rehab, if he tolerates.
- R PICC line in place
# CLIFF - now HD dependent
- started HD 06/10
- Perm catheter placed 06/22.
# Acute Leukopenia - resolved 06/18
- cefepime dc'd 06/14.
# Significant chronic BLE lymphedema
- Continue compression
- recommend outpatient follow up with lymphedema center
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
Diabetes mellitus
Asthma
Afib on eliquis
Dyslipidemia
Hypertension
Class III obesity BMI 42
Possible L2/L3 discitis on IV cefepime through 07/06/24
Bilateral lower extremity lymphedema - goes to lymphedema PT
Chief Complaint
-: Other (possible discitis)
Subjective / Review of Systems
Patient seen and examined. Currently on hemodialysis.
Review of Systems: No Fever and No Chills
Vital Signs / Physical Exam
Vital Signs
Vital Signs
Temp Pulse Resp BP Pulse Ox
97.5 F 101 20 118/72 97
06/26/24 11:00 06/26/24 11:00 06/26/24 11:00 06/26/24 11:00 06/26/24 11:00
Physical Exam
Constitutional: Comfortable
Cardiovascular: Irregular Rate and S1/S2
Pulmonary: Clear and Non Labored
Gastrointestinal: Soft, Non Tender, Non Distended and Normal Bowel Sounds
Genito-Urinary: Negative CVA Tenderness
Extremities: Edema (Lymphedema); Negative Erythema
Skin: Rash (Bilateral UE: confluent diffuse nonblanchable macular erythematous rash)
Psychological: Calm
Objective Data
Lab Data
Lab Results
06/26/24 12:37
06/26/24 12:37
PT 29.5 Sec (11.4-14.6) H 06/26/24 05:24
INR 2.81 06/26/24 05:24
APTT 33.2 Sec (23.4-35.0) 06/22/24 12:54
Estimated Creat Clear 31 ml/min 06/26/24 12:37
Lactic Acid 1.5 mmol/L (0.7-2.0) 06/09/24 16:25
Total Bilirubin 0.6 mg/dl (0.2-1.3) 06/20/24 08:05
AST 15 U/L (17-59) L 06/20/24 08:05
ALT < 10 U/L (0-50) 06/20/24 08:05
Alkaline Phosphatase 99 U/L (38-126) 06/20/24 08:05
C-Reactive Protein 53.00 mg/L (0.0-10.00) H 06/22/24 05:21
Most recent labs reviewed.
Micro Results:
06/09/24 11:10 Blood Culture - Final
Blood/Venous No Growth - Final Report
06/09/24 10:48 Blood Culture - Final
Blood/Venous No Growth - Final Report
06/09/24 16:25 MRSA Screen - Final
Nose No Methicillin Resistant Staphylococcus aureus isolated.
06/09/24 11:10 Urine Culture - Final
Urine NO GROWTH
06/09/24 CXR: Mild to moderate elevation of the right hemidiaphragm, stable. There is a band of increased density in the left mid to lower lung, horizontal, stable appearance from prior examination, compatible with stable atelectasis and/or scarring.
[2024-06-26] MEDS: MIRALAX 17 GRAMS PO (16:10)
[2024-06-26] MEDS: MERREM 500 MG IV (16:11)
[2024-06-26] MEDS: STERILE WATER FOR INJECTION 10 ML IV (16:12)
[2024-06-26 16:40] LABS: Glucose - Point of Care 96 mg/dl (70-99)
[2024-06-26] MEDS: COUMADIN 5 MG PO (17:21)
[2024-06-26] MEDS: TOPROL XL PO (21:00)
[2024-06-26 21:26] LABS: Glucose - Point of Care 137 mg/dl (70-99)
[2024-06-27] MEDS: DILAUDID 0.25 MG IV (02:43)
[2024-06-27 03:55] VITALS: BP 126/70
[2024-06-27 06:00] VITALS: BMI 41.4
[2024-06-27 06:54] LABS: INR 3.48; PT 34.7 Sec (11.4-14.6)
[2024-06-27 07:00] VITALS: BP 133/76
--- NOTE | 2024-06-27 08:11 | W.PN.HOSP.TC ---
Today's Communication/Plan
-
dc planning
Hold Coumadin today, high INR
Assessment / Plan
Assessment / Plan
Physical Exam
General: No Apparent Distress, Comfortable and Conversant
HEENT: NormoCephalic, Moist mucous membranes, right chest PermCath
Respiratory: Clear and Non Labored Respirations
Cardiac: S1/S2 and Regular Rhythm; No Rub or Gallop
GI: Soft, Non Tender, Non Distended and Normal Bowel Sounds
Musculoskeletal: Bilateral lower extremity edema, Justus wraps in place, no deformity
Skin: Rash on bilateral upper extremities mostly resolved
: NO Abraham
Neuro: Awake, Alert, Nonfocal/grossly intact
Psych: Calm and Intact Judgment/Insight
Assessment/Plan
74 years old male presented with altered mentation and was found to have signs of shock with recent GI bleeding/hematemesis
#Severe acute kidney injury(likely prerenal)/hyperkalemia/anion gap metabolic acidosis (due to lactic acidosis and CLIFF)
#Azotemia suspected due to upper GI bleed and acute kidney injury
-Held diuretics, metformin, blood pressure medication on admission.
-Patient seems to have chronic kidney disease stage IIIb from previous records, baseline creatinine is 1.3 to 1.6
-Despite IV fluids and red blood cell transfusion, renal function hadn't improved -- so dialysis started 06/10
-Abraham catheter removed due to lack of Output, however he is now making some urine
- PermCath placed 06/22
- Dialysis MWF
- Awaiting finalization of arrangements for half-way facility and outpatient dialysis, otherwise clinically stable for discharge
#Recent septic shock and treatment for bilateral lower extremity cellulitis, was on IV cefepime.
#Possible L2/L3 discitis on 05/27/24 MRI, present on admission, patient declined biopsy
-Plan was to do cefepime x 6 weeks through 07/06/24 but patient developed leukopenia, switched to Ertapenem, then developed rash on bilateral arms and so switched to Levaquin
-Doubt rash was related to antibiotics and family was concerned about side effects of fluoroquinolones with tendonitis, now treating with meropenem
-Chest x-ray No signs of erythema/swelling around PICC line
- Appreciate guidance from ID
#Rash of bilateral arms
resolved.
#Paroxysmal atrial fibrillation
-Recent diagnosis, had been anticoagulated with Eliquis which was discontinued due to significant GI bleeding
-Continue rate control with metoprolol succinate 50 mg p.o. twice daily
- Now on anticoagulation with warfarin, first dose 06/22, INR supra- therapeutic at 3.4, holding Coumadin
-Recent echo showed LVEF 65 to 70%, trace TR, biatrial dilatation, mild MR.
-Could eventually be considered for watchman device as outpatient
-Cardiology recommendations appreciated
#Hemorrhagic shock secondary to GI bleeding/hematemesis leading to acute blood loss anemia associated with Eliquis, likely upper GI bleeding from history
#Coagulopathy s/p Kcentra
-Resolved. Patient received a total of 5 units of PRBCs. Received reversal agents in ER. HGB stabilized.
-Continue Protonix 40 mg p.o. BID
-Tolerating p.o. diet
-Per GI and ICU doctors recommendations, pt will need EGD. and patient declined EGD due to stability of the patient and lack of active GI bleeding.
- Restarted oral anticoagulation with warfarin per patient/family preference with first dose evening of 06/22, now therapeutic with INR 2.59, heparin bridging discontinued
# Acute on chronic low back pain.
-This issue seemed to be the driving discomfort for the patient. He reports now less pain. No fever or leukocytosis. Blood culture is negative
-Increased Tylenol TID (high dose) to QID, trying to avoid IV Dilaudid PRN as possible
- Lidocaine patch
# Toxic metabolic encephalopathy
-Resolved
-Suspect due to uremia in the setting of renal failure
-Psychiatrist recommending trial of melatonin, if it does not work we can use low dose Ambien. So far, his sleep improved with melatonin.
-CT head on admission: no evidence for acute intracranial abnormality.
# Dysphagia
- Improved, now tolerating regular diet
# Hyponatremia
- Mild, clinically insignificant, stable
#Type 2 Diabetes Mellitus
-Stopped metformin
-Sliding scale insulin as needed and it is very low dose needed, will do pre-meal insulin upon dc.
#History of primary hypertension.
-Improved BP, Resuming BB
#Recent hospitalization with incidental finding of proximal R thigh mass:
-6.1 x 3.3 x 4.3cm solid lesion with internal vascularity in the proximal right thigh with differential including suspicious lymph node or soft tissue neoplasm.
-Patient and were aware of it, do not want to pursue further workup at this time
#Elevated proBNP
-proBNP 65848
-Volume removal via dialysis per nephrology
#Morbid Obesity
#History of stage II pressure coccygeal area injury
# Chronic history of bilateral lower extremity lymphedema
# History of alcohol use. No history of recent alcohol intake
#History of asthma on Dulera 200mcg BID at home with rescue albuterol - not currently having an exacerbation
#History of restrictive lung disease with post-bronchodilator FVC of 1.1L / 30% predicted via spirometry from 04/05/2024
# Significant BLE lymphedema
-Continue wound care and compression
Code Status: Full Code
DVT Prophylaxis: Anticoagulation with warfarin
Total time spent to see the patient, examine the patient, review data and lab results, discuss treatment plan with patient and nursing staff around 55 minutes
Anticipated Discharge: 24 - 48 hours
Subjective/Interval History
-
Date of Service: June 27, 2024
no chest pain
No abd pain
No sob
Objective Data
-
Labs:
Laboratory Results
06/27/24
06:27
PT 34.7 H
INR 3.48
Vital Signs:
Vital Signs
Temp Pulse Resp BP Pulse Ox
98 F 87 16 126/70 97
06/27/24 03:55 06/27/24 03:55 06/27/24 03:55 06/27/24 03:55 06/27/24 03:55
I&O
06/26/24 06/27/24 06/28/24
06:59 06:59 06:59
Intake Total 720 / 720
Output Total 450 / 450 700 / 700
Balance 270 / 270 -700 / -700
[2024-06-27] MEDS: TOPROL XL 50 MG PO ×2 (08:25→20:33)
[2024-06-27] MEDS: TYLENOL 1000 MG PO ×3 (08:25→20:34)
[2024-06-27] MEDS: PROTONIX 40 MG PO ×2 (08:25→20:33)
[2024-06-27] MEDS: LIDOCAINE 4% PATCH 1 PATCH TOPICAL (08:25)
[2024-06-27] MEDS: MIRALAX 17 GRAMS PO (08:26)
[2024-06-27 08:33] LABS: Glucose - Point of Care 128 mg/dl (70-99)
[2024-06-27] MEDS: NOVOLOG FLEXPEN-LOW RESISTANCE SC ×2 (08:34→16:50)
[2024-06-27] MEDS: HYDROPHOR 1 APPLIC TOPICAL (08:35)
[2024-06-27] MEDS: DESENEX/MITRAZOL/ZEASORB 1 APPLIC TOPICAL ×2 (08:35→22:55)
--- NOTE | 2024-06-27 09:00 | CM ---
Addendum entered by Neela Walls 06/27/24 15:50:
Patient has been approved for 3 days Auth [id number], 06/27/24 to 06/30/24, follow up with [facility] [phone] ext [phone] . Patient to have HD tomorrow in AM with a 1pm burr picker to [facility] with outpatient HD at [facility],
[facility] to provide transport to HD at [facility].
Addendum entered by Neela Walls 06/27/24 10:55:
Auth submitted to insurance for [facility] today, Pending Auth [id number]. All clinicals faxed to [phone].
Original Note:
experimental machining lab manager received a call that patient has been approved for [facility] in [place] through insurance and patient and spouse were updated this morning, plan is for HD at [facility] 6:45am Wednesday and Wednesday, patient will need
IV ABX and script faxed over to Tory in admissions at [facility], also update sent to [facility] as requested by [facility]. experimental machining lab manager will need to confirm that [facility] have set up HD and transportation, patient will need Auth for
skilled placement.
Plan; Skilled placement at [facility], new HD, ABX.
[2024-06-27 11:00] VITALS: BP 126/71
[2024-06-27 12:44] LABS: Glucose - Point of Care 183 mg/dl (70-99)
[2024-06-27] MEDS: NOVOLOG FLEXPEN-LOW RESISTANCE 1 UNITS SC (12:53)
[2024-06-27 14:45] VITALS: BP 131/71
--- NOTE | 2024-06-27 15:04 | W.PN.NEPH.PH ---
Today's Communication / Plan
-
Dialysis tomorrow if patient still admitted
Assessment/Plan
-
Impression:
Encephalopathy
Anemia with hematemesis on chronic oral anticoagulation (5.6)
History of recently diagnosed atrial fibrillation on Eliquis
Acute renal failure
Hyperkalemia
Metabolic acidosis (gapped and non gapped)
History of bilateral cellulitis and discitis on cefepime
History of alcohol use
Chronic lymphedema
macular rash
Plan:
HD tomorrow
abx adjusted per ID
rehab placement and HD at [facility] dialysis
If patient remains here tomorrow we will dialyze him and then he can start his first treatment again on
-
-
Date of Service: June 27, 2024
CC / HPI / ROS
-
Chief Complaint:
Acute kidney injury
History of Present Illness:
Acute kidney injury now dialysis dependent
tolerated HD Wednesday
Hemodynamically stable
Hemoglobin stable
Creatinine 3.0 after dialysis
Review of Systems:
nonoliguric
no CP/SOB
Rash improving
Labs
-
Labs:
WBC 5.5 10^3/uL (4.8-10.8) 06/26/24 12:37
RBC 2.96 10^6/uL (4.70-6.10) L 06/26/24 12:37
Hgb 8.4 g/dL (13.0-18.0) L 06/26/24 12:37
Hct 26.0 % (39.0-52.0) L 06/26/24 12:37
Plt Count 148 10^3/uL (130-400) D 06/26/24 12:37
Sodium 136 mmol/L (135-145) 06/26/24 12:37
Potassium 3.5 mmol/L (3.5-5.1) 06/26/24 12:37
Chloride 100 mmol/L (98-107) 06/26/24 12:37
Carbon Dioxide 25 mmol/L (22-30) 06/26/24 12:37
BUN 33 mg/dl (9-20) H 06/26/24 12:37
Creatinine 2.7 mg/dL (0.7-1.3) H 06/26/24 12:37
eGFR 23.68 06/26/24 12:37
Glucose 231 mg/dl (70-99) H 06/26/24 12:37
Calcium 7.8 mg/dl (8.4-10.2) L 06/26/24 12:37
Phosphorus 4.0 mg/dl (2.5-4.5) 06/21/24 06:03
Waq-K-Rrivgpkjctp Pept > 57771 pg/ml 06/12/24 03:15
Albumin 2.3 g/dl (3.5-5.0) L 06/21/24 06:03
Physical Exam
-
Vital Signs:
Vital Signs
Temp Pulse Resp BP Pulse Ox
97.6 F 93 18 131/71 99
06/27/24 14:45 06/27/24 14:45 06/27/24 14:45 06/27/24 14:45 06/27/24 14:45
Cardiovascular:: Regular rate and rhythm
Respiratory:: Bilateral: CTA
Lung Excursion:: Normal
Abdomen:: Nontender and Soft
Bowel Sounds:: Normal
Extremity Edema:: +1: Bilateral:
--- NOTE | 2024-06-27 15:16 | W.PN.ID1 ---
Date of Service
Date of Service: June 27, 2024
Today's Communication
Continue meropenem 500mg IV q24 through 07/06/24.
Assessment / Plan
# Rash - possible vasculitis, resolved
# Thrombocytopenia
- diffuse, nonblanching hemorrhagic looking rash (macular, nonpalpable) over the bilateral upper extremities, now resolved.
- doubt ADR ->but Ertapenem dc'd on 06/20.
- WES, MPO, PR3, complements negative
- Anti-streptolysin O ab 400 (nl<200). The patient's rash is not typical of post-group A strep skin manisfestations.
# Possible L2/L3 discitis on 05/27/24 MRI, present on admission (pt had refused biopsy)
- Previously on cefepime, dc'd due to leukopenia
- 06/20 Discontinued Ertapenem due to rash
- 06/23 discontinue Levofloxacin 250mg po qd as per 's request due to concern for tendinitis, etc.
- Continue meropenem 500mg IV q24 for remaining course through 07/06/24.
Infusion sheet placed in patient's chart (yellow folder) to complete course at rehab. Case management faxed script to rehab.
- R PICC line in place
# CLIFF - now HD dependent
- started HD 06/10
- Perm catheter placed 06/22.
# Acute Leukopenia - resolved 06/18
- cefepime dc'd 06/14.
# Significant chronic BLE lymphedema
- Continue compression
- recommend outpatient follow up with lymphedema center
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
Diabetes mellitus
Asthma
Afib on eliquis
Dyslipidemia
Hypertension
Class III obesity BMI 42
Possible L2/L3 discitis on IV cefepime through 07/06/24
Bilateral lower extremity lymphedema - goes to lymphedema PT
Chief Complaint
-: Other (possible discitis)
Subjective / Review of Systems
Feeling much improved.
Rash almost gone.
Vital Signs / Physical Exam
Vital Signs
Vital Signs
Temp Pulse Resp BP Pulse Ox
97.6 F 93 18 131/71 99
06/27/24 14:45 06/27/24 14:45 06/27/24 14:45 06/27/24 14:45 06/27/24 14:45
Physical Exam
Constitutional: No Acute Distress and Comfortable
Cardiovascular: S1/S2
Pulmonary: Clear
Gastrointestinal: Soft, Non Tender, Non Distended and Normal Bowel Sounds
Extremities: Edema
Skin: Rash (BUE resolving)
Neurological: AO x 3
Lines: PICC and HD Cath
Objective Data
Lab Data
Lab Results
06/26/24 12:37
06/26/24 12:37
PT 34.7 Sec (11.4-14.6) H 06/27/24 06:27
INR 3.48 06/27/24 06:27
APTT 33.2 Sec (23.4-35.0) 06/22/24 12:54
Estimated Creat Clear 31 ml/min 06/26/24 12:37
Lactic Acid 1.5 mmol/L (0.7-2.0) 06/09/24 16:25
Total Bilirubin 0.6 mg/dl (0.2-1.3) 06/20/24 08:05
AST 15 U/L (17-59) L 06/20/24 08:05
ALT < 10 U/L (0-50) 06/20/24 08:05
Alkaline Phosphatase 99 U/L (38-126) 06/20/24 08:05
C-Reactive Protein 53.00 mg/L (0.0-10.00) H 06/22/24 05:21
Most recent labs reviewed.
Micro Results:
06/09/24 11:10 Blood Culture - Final
Blood/Venous No Growth - Final Report
06/09/24 10:48 Blood Culture - Final
Blood/Venous No Growth - Final Report
06/09/24 16:25 MRSA Screen - Final
Nose No Methicillin Resistant Staphylococcus aureus isolated.
06/09/24 11:10 Urine Culture - Final
Urine NO GROWTH
06/09/24 CXR: Mild to moderate elevation of the right hemidiaphragm, stable. There is a band of increased density in the left mid to lower lung, horizontal, stable appearance from prior examination, compatible with stable atelectasis and/or scarring.
[2024-06-27] MEDS: MERREM 500 MG IV (15:57)
[2024-06-27] MEDS: STERILE WATER FOR INJECTION 10 ML IV (15:58)
[2024-06-27 16:50] LABS: Glucose - Point of Care 132 mg/dl (70-99)
[2024-06-27 19:32] VITALS: BP 121/59
[2024-06-27 22:10] LABS: Glucose - Point of Care 201 mg/dl (70-99)
[2024-06-27] MEDS: MELATONIN 5 MG PO (22:56)
[2024-06-27 23:45] VITALS: BP 116/60
[2024-06-28 03:46] VITALS: BP 116/67
[2024-06-28 05:34] LABS: INR 3.68; PT 36.2 Sec (11.4-14.6)
[2024-06-28 05:49] VITALS: BMI 41.1
[2024-06-28 07:40] VITALS: BP 147/80
[2024-06-28 08:06] LABS: Glucose - Point of Care 139 mg/dl (70-99)
[2024-06-28 08:42] LABS: Hematocrit 25.1 % (39.0-52.0); Hemoglobin 8.2 g/dL (13.0-18.0)
[2024-06-28 08:58] LABS: Carbon Dioxide 27 mmol/L (22-30); Chloride 100 mmol/L (98-107); Potassium 3.7 mmol/L (3.5-5.1); Sodium 135 mmol/L (135-145)
--- NOTE | 2024-06-28 09:09 | CM ---
Patient has been approved and bed is available at [facility] today, continuous pickling line pickler time has been arranged for 1pm, by ambulance, hospice case manager spoke with Tory in admissions at [facility], Auth provided, hospice case manager reached out to Bhavani at [facility] in [place] and they are aware of plan.
Patient has been approved for 3 days Auth [id number], 06/27/24 to 06/30/24, follow up with [facility] [phone] ext [phone] . Next review date is 06/30/24.
[facility]
Report [phone]

[facility] [place]
[phone]
[2024-06-28] MEDS: RETACRIT 10000 UNITS IV (09:15)
[2024-06-28] MEDS: NOVOLOG FLEXPEN-LOW RESISTANCE SC ×2 (11:02→12:19)
[2024-06-28 11:46] VITALS: BP 165/81
[2024-06-28 12:05] LABS: Glucose - Point of Care 109 mg/dl (70-99)
--- NOTE | 2024-06-28 12:10 | WOUNDNOTE ---
SACRAL/COCCYX/BUTTOCKS
--- NOTE | 2024-06-28 12:11 | WOUNDNOTE ---
R CALF (POSTERIOR LATERAL)
[2024-06-28] MEDS: TOPROL XL 50 MG PO (12:12)
[2024-06-28] MEDS: TYLENOL 1000 MG PO (12:12)
[2024-06-28] MEDS: PROTONIX 40 MG PO (12:13)
--- NOTE | 2024-06-28 12:13 | WOUNDNOTE ---
WO RN note: Patient's LE wounds healing, smaller and pink. LE edema less. Coccyx/buttocks ulcers improved. Coccyx stage shallow 3 pressure injury. L buttocks dermal ulcer. R sacral iliac pink abrasion. Lower buttocks linear pink abrasions noted.
Skin on heels intact. Patient moving better. Local care given sacral/coccyx/buttocks. Le dressings changed. Justus wraps reapplied and patient transferred to recliner with air chair cushion with help from press bucker Hayley. Updated RN Will. Patient for
discharge today.
[2024-06-28] MEDS: DESENEX/MITRAZOL/ZEASORB 1 APPLIC TOPICAL (12:14)
[2024-06-28] MEDS: LIDOCAINE 4% PATCH TOPICAL (12:14)
[2024-06-28] MEDS: HYDROPHOR 1 APPLIC TOPICAL (12:18)
--- NOTE | 2024-06-28 13:39 | W.DCSUMMARY ---
Discharge Summary
Discharge Data
Date of Admission: 06/09/24
Date of Discharge: 06/28/24
-
Pending Results: No
Hospital Course
74 years old male admitted to the hospital from skilled nursing after suffering hematemesis. Patient was diagnosed with hemorrhagic shock. He was noted to have upper GI bleeding. Patient was resuscitated with intravenous fluid, blood transfusion and
reversal agent to Eliquis. Patient had history of recent hospitalization for treatment of cellulitis/back discitis, atrial fibrillation and chronic kidney disease. Patient was discharged on medications including Eliquis. Patient was treated in
intensive care unit. He received total of 5 units of blood transfusion. He was started on intravenous Protonix therapy. He was followed by district loss prevention manager. After stabilizing the patient, gastrointestinal doctor recommended upper endoscopic
evaluation. Patient and declined due to lack of further GI bleeding, stability of his condition/hemoglobin and concern to have invasive procedure /anesthesia. Kidney disease progressed to renal failure. Patient was followed by rotary cutter operator.
He was started on hemodialysis. Patient was also followed by certified nurse aide and c4 planner. Patient and did not want to go back on Eliquis and options of anticoagulation therapy were discussed with them. They decided on Coumadin. Patient did
not have further bleeding and hemoglobin remained stable with use of systemic anticoagulation with Coumadin. Patient had toxic metabolic encephalopathy on admission. His mentation improved and his insomnia was treated with melatonin. Patient was
treated with Tylenol for back pain. Patient was followed by infectious disease doctor. He remained on intravenous antibiotic. He developed leukopenia and cefepime was discontinued. He was started on meropenem therapy. Infectious disease doctor
recommended to continue intravenous meropenem therapy through July 06 for possible L2/L3 discitis. Patient has chronic bilateral lower extremity lymphedema. He was followed by wound care nurse. Patient remained hemodynamically stable. Patient
was evaluated by correctional case manager to set up outpatient dialysis schedule. Patient was evaluated by physical therapy recommending prison facility placement. Patient was discharged in stable condition.
Discharge Plan
-
Patient Disposition: Halfway/SNF
Discharge Diagnosis/Procedures: GI bleeding,resolved
CKD progressed to ESRD on HD
Acute blood loss anemia/leukopenia/thrombocytopenia
Chronic bilateral lymphedema
Possible L2/L3 discitis, Continue meropenem 500mg IV q24 through 07/06/24
Paroxysmal atrial fibrillation, on Coumadin, Start on 06/29. INR on 06/29
Chronic low back pain
Toxic metabolic encephalopathy, resolved
Type 2 diabetes
Diet: Diabetic, Carb Controlled
Blood Work: INR on 06/29. weekly CBCs for 4 weeks
Activity Restrictions/Additional Instructions:
1. Continue meropenem 500mg IV q24 (4:00PM) through 07/06/24.
2. Weekly CBC, CMP while on meropenem.
Wound Care Instructions Bilateral Posterior Leg Wounds- Clean with Vashe moistened gauze and cover open areas with Xeroform gauze, cover with ABD and wrap with shelly. Change daily and PRN drainage. Moisture lotion to dry intact skin Le's
daily.
Coccyx, L buttocks ulcers-clean with Vashe or soap and water, honey gel prn necrotic tissue, cover with silicone border foam or ABD pad secured with minimal silicone tape, change daily and as needed for soilage.
Desenex powder to groin and buttocks daily
Compression and wound care as ordered by your physician.
Air mattress
Turning schedule
elevate heels off bed with pillows with air chair cushon on top.
Pressure redistributing chair cushion (i.e. Roho, bariatric Air chair cushion)
Follow up at wound care center call for an appointment.
Referrals:
Xochitl Moura PA-C [Specified Professional Personl] - 07/21/24 2:00 pm (You have a cardiology follow-up appointment at the [facility]. Please call with questions)
Get Zee MD [Active] - in one month
UNKNOWN - PT NOT,INTERVIEWE [Family Provider] -
Kassie Mac MD [Active] - in one month
Prescriptions:
New
polyethylene glycol 3350 17 gram Powder In Packet
17 g PO 1500 Qty: 30 0RF
metoprolol succinate 50 mg Tablet Extended Release 24 Hr
50 mg PO BID Qty: 60 0RF
acetaminophen [Tylenol Extra Strength] 500 mg Tablet
1,000 mg PO TID Qty: 90 0RF
pantoprazole 40 mg Tablet,Delayed Release (Dr/Ec)
40 mg PO BID Qty: 60 0RF
meropenem 500 mg Recon Soln
500 mg IV Q24H Qty: 9 0RF
warfarin 2 mg tablet
2 mg PO DAILY Qty: 30 0RF
Rx Instructions:
Start on 06/29
Continued
albuterol sulfate 2.5 mg /3 mL (0.083 %) Solution For Nebulization
2.5 mg INHALATION R Q6HPRN PRN (Reason: sob)
Dulera 200-5 mcg/actuation Hfa Aerosol Inhaler
2 puff INHALATION R BID
Rx Instructions:
rinse out after use to avoid thrush from developing
albuterol sulfate 90 mcg/actuation Hfa Aerosol Inhaler
2 puff INHALATION R Q4HPRN PRN (Reason: sob)
atorvastatin 20 mg Tablet
20 mg PO HS
therapeutic multivitamin Tablet
1 tab PO DAILY
magnesium hydroxide [Milk of Magnesia] 400 mg/5 mL Suspension
30 ml PO Q98H PRN (Reason: constipation, day 4 no bm)
cyanocobalamin (vitamin B-12) 500 mcg Tablet
500 mcg PO DAILY
bisacodyl [Dulcolax (bisacodyl)] 10 mg Suppository
10 mg NH DAILYPRN PRN (Reason: day 5 of no BM and MOM ineffective)
Fleet Enema 19-7 gram/118 mL Enema
118 ml NH DAILYPRN PRN (Reason: day 6 of no BM and bisacodyl ineffective)
melatonin 5 mg Capsule
5 mg PO HS
acetaminophen 325 mg tablet
650 mg PO Q4HPRN MDD 3000mg PRN (Reason: mild pain/fever >100)
cholecalciferol (vitamin D3) 25 mcg (1,000 unit) tablet
25 mcg PO DAILY
lidocaine 4 % adhesive patch,medicated
1 patch topical DAILY
Discontinued
metformin 1,000 mg Tablet
1,000 mg PO BID
Patient Comments:
patient says that he only takes one each evening, never takes morning dose
miconazole nitrate 2 % Powder
1 applic TOPICAL BID
Patient Comments:
groin
aspirin 81 mg Tablet,Delayed Release (Dr/Ec)
81 mg PO DAILY
tramadol 50 mg Tablet
50 mg PO Q6HPRN PRN (Reason: Moderate back pain)
alprazolam [Xanax] 0.5 mg Tablet
0.5 mg PO HSPRN PRN (Reason: anxiety)
furosemide 40 mg tablet
40 mg PO DAILY
cefepime 2 gram recon soln
2,000 mg IV Q12H
atenolol 25 mg tablet
25 mg PO DAILY
Eliquis 5 mg tablet
5 mg PO BID
Discharge Orders:
Discharge Patient (As Directed); Ordered 06/28/24
Ordered By: Shahzad Mirza
Discharge Date and Time
Discharge Date/Time: 06/28/24 13:27
Print Language: MAURITIAN
--- NOTE | 2024-06-28 13:51 | W.PN.HOSP.TC ---
Today's Communication/Plan
-
dc
Assessment / Plan
Assessment / Plan
Physical Exam
General: No Apparent Distress, Comfortable and Conversant
HEENT: NormoCephalic, Moist mucous membranes, right chest PermCath
Respiratory: Clear and Non Labored Respirations
Cardiac: S1/S2 and Regular Rhythm; No Rub or Gallop
GI: Soft, Non Tender, Non Distended and Normal Bowel Sounds
Musculoskeletal: Bilateral lower extremity edema, Justus wraps in place, no deformity
Skin: Rash on bilateral upper extremities mostly resolved
: NO Abraham
Neuro: Awake, Alert, Nonfocal/grossly intact
Psych: Calm and Intact Judgment/Insight
Assessment/Plan
74 years old male presented with altered mentation and was found to have signs of shock with recent GI bleeding/hematemesis
#Severe acute kidney injury(likely prerenal)/hyperkalemia/anion gap metabolic acidosis (due to lactic acidosis and CLIFF)
#Azotemia suspected due to upper GI bleed and acute kidney injury
- Stop diuretics and metformin.
-Patient seems to have chronic kidney disease stage IIIb from previous records, baseline creatinine is 1.3 to 1.6
-Despite IV fluids and red blood cell transfusion, renal function hadn't improved -- so dialysis started 06/10
-Abraham catheter removed due to lack of Output, however he is now making some urine
- PermCath placed 06/22
- Dialysis MWF
Appreciate nephrology and case specialistmanager port for outpatient hemodialysis set up
#Recent septic shock and treatment for bilateral lower extremity cellulitis, was on IV cefepime.
#Possible L2/L3 discitis on 05/27/24 MRI, present on admission, patient declined biopsy
-Plan was to do cefepime x 6 weeks through 07/06/24 but patient developed leukopenia, switched to Ertapenem, then developed rash on bilateral arms and so switched to Levaquin
-Doubt rash was related to antibiotics and family was concerned about side effects of fluoroquinolones with tendonitis, now treating with meropenem
-Chest x-ray No signs of erythema/swelling around PICC line
- Appreciate guidance from ID
#Rash of bilateral arms
resolved.
#Paroxysmal atrial fibrillation
-Recent diagnosis, had been anticoagulated with Eliquis which was discontinued due to significant GI bleeding
-Continue rate control with metoprolol succinate 50 mg p.o. twice daily
- Now on anticoagulation with warfarin, first dose 06/22, INR supra- therapeutic at 3.4, holding Coumadin, readminister at lower dose and check INR
-Recent echo showed LVEF 65 to 70%, trace TR, biatrial dilatation, mild MR.
-Could eventually be considered for watchman device as outpatient
-Cardiology recommendations appreciated
#Hemorrhagic shock secondary to GI bleeding/hematemesis leading to acute blood loss anemia associated with Eliquis, likely upper GI bleeding from history
#Coagulopathy s/p Kcentra
-Resolved. Patient received a total of 5 units of PRBCs. Received reversal agents in ER. HGB stabilized.
-Continue Protonix 40 mg p.o. BID
-Tolerating p.o. diet
-Per GI and ICU doctors recommendations, pt will need EGD. and patient declined EGD due to stability of the patient and lack of active GI bleeding.
- Restarted oral anticoagulation with warfarin per patient/family preference.
# Acute on chronic low back pain.
-This issue seemed to be the driving discomfort for the patient. He reports now less pain. No fever or leukocytosis. Blood culture is negative
-Increased Tylenol TID (high dose) to QID, trying to avoid IV Dilaudid PRN as possible
- Lidocaine patch
# Toxic metabolic encephalopathy
-Resolved
-Suspect due to uremia in the setting of renal failure
-Psychiatrist recommending trial of melatonin, if it does not work we can use low dose Ambien. So far, his sleep improved with melatonin.
-CT head on admission: no evidence for acute intracranial abnormality.
# Dysphagia
- Improved, now tolerating regular diet
# Hyponatremia
- Mild, clinically insignificant, stable
#Type 2 Diabetes Mellitus
-Stopped metformin
Patient lost weight and his blood sugar improved. He did not need coverage with insulin sliding scale, continue diet control for now.
#History of primary hypertension.
-Improved BP, Resuming BB
#Recent hospitalization with incidental finding of proximal R thigh mass:
-6.1 x 3.3 x 4.3cm solid lesion with internal vascularity in the proximal right thigh with differential including suspicious lymph node or soft tissue neoplasm.
-Patient and were aware of it, do not want to pursue further workup at this time
#Morbid Obesity
#History of stage II pressure coccygeal area injury
# Chronic history of bilateral lower extremity lymphedema
# History of alcohol use. No history of recent alcohol intake, no DT, lucid and AAOX3.
#History of asthma on Dulera 200mcg BID at home with rescue albuterol - not currently having an exacerbation
#History of restrictive lung disease with post-bronchodilator FVC of 1.1L / 30% predicted via spirometry from 04/05/2024
# Significant BLE lymphedema
-Continue wound care and compression
Code Status: Full Code
DVT Prophylaxis: Anticoagulation with warfarin
Total discharge time spent to see the patient, examine the patient, review data and lab results, discuss discharge plan with patient, case specialist and nursing staff around 67 minutes
Anticipated Discharge: Today
Subjective/Interval History
-
Date of Service: June 28, 2024
Seen earlier, no complaints, he is excited to leave the hospital. Undergoing dialysis without problems
Objective Data
-
Labs:
Laboratory Results
06/28/24 06/28/24
04:38 08:00
Hgb 8.2 L
Hct 25.1 L
PT 36.2 H
INR 3.68
Sodium 135
Potassium 3.7
Chloride 100
Carbon Dioxide 27
Vital Signs:
Vital Signs
Temp Pulse Resp BP Pulse Ox
98 F 97 20 165/81 97
06/28/24 11:46 06/28/24 12:12 06/28/24 11:46 06/28/24 12:12 06/28/24 11:46
I&O
06/27/24 06/28/24 06/29/24
06:59 06:59 06:59
Intake Total 480 / 480
Output Total 700 / 700 350 / 350 125 / 125
Balance -700 / -700 130 / 130 -125 / -125
== END 2024-06-28 13:27 | DRG 377 ==
LOC: 4 WEST ACU 12:52
PROVIDERS: Internal Medicine; Internal Medicine Cardiovascular Disease; Internal Medicine Nephrology; Nurse Practitioner Family; Physician Assistant Medical; Radiology Diagnostic Radiology; Registered Nurse; Specialist; ADMITTING PHYSICIAN Internal Medicine; CONSULT PHYSICIAN Internal Medicine Critical Care Medicine; EMERGENCY PHYSICIAN Emergency Medicine; OTHER PHYSICIAN Internal Medicine Cardiovascular Disease; OTHER PHYSICIAN Internal Medicine Gastroenterology; OTHER PHYSICIAN Internal Medicine Infectious Disease; OTHER PHYSICIAN Specialist
PROC: 30233N1 Transfusion of Nonautologous Red Blood Cells into Peripheral Vein, Percutaneous Approach (ICD-10-PCS; 2024-06-09)
PROC: 30283B1 Transfusion of Nonautologous 4-Factor Prothrombin Complex Concentrate into Vein, Percutaneous Approach (ICD-10-PCS; 2024-06-09)
PROC: 02HV33Z Insertion of Infusion Device into Superior Vena Cava, Percutaneous Approach (ICD-10-PCS; 2024-06-10)
PROC: 5A1D70Z Performance of Urinary Filtration, Intermittent, Less than 6 Hours Per Day (ICD-10-PCS; 2024-06-10)
PROC: 02H633Z Insertion of Infusion Device into Right Atrium, Percutaneous Approach (ICD-10-PCS; 2024-06-22)
PROC: 0JH63XZ Insertion of Tunneled Vascular Access Device into Chest Subcutaneous Tissue and Fascia, Percutaneous Approach (ICD-10-PCS; 2024-06-22)
DX: K92.0 Hematemesis (principal); G92.8 Other toxic encephalopathy; R57.8 Other shock; N18.6 End stage renal disease; Z68.41 Body mass index [BMI] 40.0-44.9, adult; E87.20 Acidosis, unspecified; N17.9 Acute kidney failure, unspecified; E87.1 Hypo-osmolality and hyponatremia; I12.0 Hypertensive chronic kidney disease with stage 5 chronic kidney disease or end stage renal disease; D68.32 Hemorrhagic disorder due to extrinsic circulating anticoagulants; D62 Acute posthemorrhagic anemia; I48.0 Paroxysmal atrial fibrillation; E87.5 Hyperkalemia; E78.00 Pure hypercholesterolemia, unspecified; I89.0 Lymphedema, not elsewhere classified; E11.22 Type 2 diabetes mellitus with diabetic chronic kidney disease; J45.909 Unspecified asthma, uncomplicated; E66.813 Obesity, class 3; L89.152 Pressure ulcer of sacral region, stage 2; I87.2 Venous insufficiency (chronic) (peripheral); T45.515A Adverse effect of anticoagulants, initial encounter; F10.10 Alcohol abuse, uncomplicated; G47.00 Insomnia, unspecified; D69.6 Thrombocytopenia, unspecified; M46.46 Discitis, unspecified, lumbar region; E03.9 Hypothyroidism, unspecified; E88.09 Other disorders of plasma-protein metabolism, not elsewhere classified; G89.29 Other chronic pain; R21 Rash and other nonspecific skin eruption; R13.10 Dysphagia, unspecified; Z79.01 Long term (current) use of anticoagulants; Z79.84 Long term (current) use of oral hypoglycemic drugs; Z79.82 Long term (current) use of aspirin; Z79.899 Other long term (current) drug therapy; Z87.891 Personal history of nicotine dependence
CPT/HCPCS: 36430; 36556; 36558; 36600; 70450; 71045; 74018; 76937; 77001; 80048; 80051; 80053; 80069; 81003; 81015; 82140; 82248; 82805; 82962; 83516; 83605; 83735; 83880; 84100; 84443; 84484; 85014; 85018; 85025; 85027; 85384; 85610; 85730; 86038; 86060; 86063; 86140; 86160; 86704; 86706; 86803; 86850; 86900; 86901; 86920; 87040; 87070; 87086; 87340; 92526; 92610; 93005; 96365; 96366; 96375; 97163; 97167; 97530; 97535; 99152; 99153; 99291; C1750; C1752; G0257; J1335; J2597; J7168; P9016; P9047; Q5106

== ENCOUNTER 2024-07-14 18:54 | Inpatient (IN) | payer OTHER, MEDICARE, SELFPAY ==
[2024-07-14 15:07] VITALS: BP 108/61
[2024-07-14 15:46] LABS: INR 1.48; PT 18.1 Sec (11.4-14.6)
--- NOTE | 2024-07-14 15:53 | ED.GENMED ---
History of Present Illness
<ALEYDA Fitch - Last Filed: 07/14/24 17:47>
General
Chief Complaint: Vascular Access Problem
Source: patient
Exam Limitations: none
Time Seen by Provider: 07/14/24 15:41
Nursing documentation reviewed up to this point in time: agreed with
History of Present Illness
History of Present Illness:
Patient is a 74-year-old male with past medical history of hypertension hyperlipidemia renal failure A-fib on Coumadin, GI bleed, cellulitis back discitis(antibx were discontinued for this 07/02) sent by nursing facility for evaluation. Patient has
a history of intermittent rash during previous hospitalization. At that time he was diagnosed with possible vasculitis however this rash reports is different.
While at the rehab facility patient started with rash 6 days ago and also has developed increasing swelling to his arms and legs associate with the rash. Nurses were not able to get his blood work today which includes his INR because he is on
Coumadin and he sent here to the ER.
Patient denies any chest pain shortness of breath
Past History
<ALEYDA Fitch - Last Filed: 07/14/24 17:47>
Past History
ED Past Medical History: Arrthythmia, HTN, Hypercholesterolemia, IDDM, Renal failure, Hypothyroidism and Other (Chronic lymphedema)
ED Past Surgical History: None
Social History
Tobacco: Non-smoker
Alcohol: Chronic alcoholic
Drug: None
Living: care home
Phy Exam
<ALEYDA Fitch - Last Filed: 07/14/24 17:47>
General Physical Exam
General Presentation: no apparent distress
General age: appears stated age
General Skin: warm and dry
General Habitus: elderly
General Mental: alert
General Hydration: appears well hydrated
ENT Exam
ENT Exam: EOMI, neck supple and other (No lip or tongue swelling)
Cardiovascular Exam
Cardiovascular Exam: regular rate/rhythm, no murmur and normal peripheral pulses
Pulmonary Exam
Pulmonary Exam: lungs clear and no respiratory distress
Neurological Exam
Neurological Exam: alert and oriented x3
Musculoskeletal Exam
Musculoskeletal Exam: other (Swelling to bilateral arms and leg)
Skin Exam
Skin Exam: normal color, warm/dry and other (Bilateral arms and legs with significant red rash, there are scattered areas of redness/hives to chest abdomen and back)
Psychiatric Exam
Psychiatric Exam: normal mood/affect
Course
<ALEYDA Fitch - Last Filed: 07/14/24 17:47>
Orders/Labs/Results
Orders:
Orders
07/14/24 15:20
CBC/With Diff [Complete Blood Count/With Diff] Urgent
Comprehensive Metabolic Panel Urgent
Prothrombin Time Urgent
07/14/24 16:01
IV Insert/Care/Rem.- Treatment PRN
Dexamethasone Sod Phosphate [Decadron] 10 mg IV NOW STA
Diphenhydramine [Benadryl] 25 mg IV NOW STA
07/14/24 16:02
Famotidine [Pepcid] 20 mg IV NOW STA
Abnormal Lab Results
07/14/24
15:20
WBC 12.7 H 10^3/uL
(4.8-10.8)
RBC 3.43 L 10^6/uL
(4.70-6.10)
Hgb 9.6 L g/dL
(13.0-18.0)
Hct 29.6 L %
(39.0-52.0)
MCHC 32.4 L g/dL
(33.0-37.0)
RDW 16.7 H %
(11.5-14.5)
Abs Immat Gran (auto) 0.1 H 10^3/uL
(0-0.05)
Absolute Monos (auto) 1.6 H 10^3/uL
(0.1-0.6)
Absolute Eos (auto) 3.2 H 10^3/uL
(0-0.7)
Immature Gran % 0.8 H %
(0-0.5)
Lymphocytes % 11.3 L %
(20.5-51.1)
Monocytes % 12.6 H %
(1.7-9.3)
Eosinophils % 25.2 H %
(0-6)
PT 18.1 H Sec
(11.4-14.6)
BUN 25 H mg/dl
(9-20)
Creatinine 1.9 H mg/dL
(0.7-1.3)
Glucose 187 H mg/dl
(70-99)
Alkaline Phosphatase 163 H U/L
(38-126)
Albumin 3.1 L g/dl
(3.5-5.0)
07/14/24 15:20
07/14/24 15:20
Vital Signs
Initial and Last Documented VS:
Initial Vital Signs
Temp Pulse Resp BP Pulse Ox
98.4 F 103 18 108/61 98
07/14/24 15:07 07/14/24 15:07 07/14/24 15:07 07/14/24 15:07 07/14/24 15:07
Last Documented Vital Signs
Temp Pulse Resp BP Pulse Ox
98.4 F 104 23 108/61 100
07/14/24 15:07 07/14/24 16:30 07/14/24 16:30 07/14/24 15:07 07/14/24 16:30
Rn Admissions consulted with Physician
Rn Admissions consulted with physician?: Yes
Name of Physician Consulted: Faustino
<Anurag Harmon, DO - Last Filed: 07/14/24 16:45>
Orders/Labs/Results
Orders:
Orders
07/14/24 15:20
CBC/With Diff [Complete Blood Count/With Diff] Urgent
Comprehensive Metabolic Panel Urgent
Prothrombin Time Urgent
07/14/24 16:01
IV Insert/Care/Rem.- Treatment PRN
Dexamethasone Sod Phosphate [Decadron] 10 mg IV NOW STA
Diphenhydramine [Benadryl] 25 mg IV NOW STA
07/14/24 16:02
Famotidine [Pepcid] 20 mg IV NOW STA
Abnormal Lab Results
07/14/24
15:20
WBC 12.7 H 10^3/uL
(4.8-10.8)
RBC 3.43 L 10^6/uL
(4.70-6.10)
Hgb 9.6 L g/dL
(13.0-18.0)
Hct 29.6 L %
(39.0-52.0)
MCHC 32.4 L g/dL
(33.0-37.0)
RDW 16.7 H %
(11.5-14.5)
Abs Immat Gran (auto) 0.1 H 10^3/uL
(0-0.05)
Absolute Monos (auto) 1.6 H 10^3/uL
(0.1-0.6)
Absolute Eos (auto) 3.2 H 10^3/uL
(0-0.7)
Immature Gran % 0.8 H %
(0-0.5)
Lymphocytes % 11.3 L %
(20.5-51.1)
Monocytes % 12.6 H %
(1.7-9.3)
Eosinophils % 25.2 H %
(0-6)
PT 18.1 H Sec
(11.4-14.6)
BUN 25 H mg/dl
(9-20)
Creatinine 1.9 H mg/dL
(0.7-1.3)
Glucose 187 H mg/dl
(70-99)
Alkaline Phosphatase 163 H U/L
(38-126)
Albumin 3.1 L g/dl
(3.5-5.0)
07/14/24 15:20
07/14/24 15:20
Vital Signs
Initial and Last Documented VS:
Initial Vital Signs
Temp Pulse Resp BP Pulse Ox
98.4 F 103 18 108/61 98
07/14/24 15:07 07/14/24 15:07 07/14/24 15:07 07/14/24 15:07 07/14/24 15:07
Last Documented Vital Signs
Temp Pulse Resp BP Pulse Ox
98.4 F 104 23 108/61 100
07/14/24 15:07 07/14/24 16:30 07/14/24 16:30 07/14/24 15:07 07/14/24 16:30
<ALEYDA Fitch - Last Filed: 07/14/24 17:47>
MDM/Problems Addressed
MDM/Problems Addressed:
Patient with significant rash as discussed with increasing swelling redness to bilateral arms and legs. Patient does have hives to his chest and back. He denies any actual difficulty breathing. Patient is currently staying at a rehab in addition
to rash they had difficulty getting blood work because of his swelling. He was been specifically for INR because he is on Coumadin. His blood work was done here in the ER his INR is 1.48. His white count is minimally elevated 12.7 however this is
new from 06/26 likely reactive. Patient's hemoglobin is 9.6 which is actually improved from previous blood work; patient is on dialysis with a creatinine 1.9.
Patient was eval by ED physician who does feel this is most likely a drug rash Dress syndrome considered.
Will admit for further evaluation
<ALEYDA Fitch - Last Filed: 07/14/24 17:47>
*Pulse Oximetry
Patient hypoxic: no
*Critical Care Note
Total Time (30-74mins, 75-104mins- exclusive of procedures): Not Applicable
Data Reviewed
Review of Other/Old Records Reveals: Labs and Discharge Summary
Source: patient and significant other
ED Attending Note
<ALEYDA Fitch - Last Filed: 07/14/24 17:47>
-
Portions of this chart may have been created with voice recognition software.� Occasional wrong word or��sound alike� substitutions may have occurred due to the inherent limitations of voice recognition software.
<Anurag Harmon DO - Last Filed: 07/14/24 16:45>
ED Attending Note
Patient seen and examined by attending physician: Yes
I performed the substantive portion of visit, reviewed & personally made and approve the management plan that is documented in note by myself or ISMAEL.: Yes
ED Attending Note:
I have seen and evaluated the patient with a [id number] encounter. I have spoken to the advance practicer provider and involved in the medical history, the physical exam, medical decision making.
Evaluation and management service: agree unless noted differently below.
Results interpretation: agree unless noted differently below.
Focused HPI: 74-year-old male presenting for evaluation of significant rash. Over the past several days, patient has had a rash of all 4 extremities that has significantly worsened. He complains of pruritus. He was recently started on dialysis a
few weeks ago. Patient was also started on coming in a few weeks ago.
Physical exam: Significant erythema and edema to all 4 extremities. Urticaria noted to chest. Patient otherwise comfortable appearing. It appears to spare mucosal member
Medical Decision Making: Blood work was obtained. He has mild leukocytosis but patient found to have a significant elevation of eosinophils. He potentially has a dress syndrome. Will give dose of steroid and admit
Discharge Plan
Departure
Patient Disposition: Admit
Date of Disposition: 07/14/24
Time of Disposition: 17:47
Admit to: Med/Surg
Admit to doctor: hospitalist
Presentation/result/management discussed w/ accepting MD/DO: Hospitalist
Patient with high blood pressure during this ER visit?: No
Condition: Fair
Covid-19: Not Applicable
Discharge Problem:
acute rash
Prescriptions:
No Action
albuterol sulfate 2.5 mg /3 mL (0.083 %) Solution For Nebulization
2.5 mg INHALATION R Q6HPRN PRN (Reason: sob)
Dulera 200-5 mcg/actuation Hfa Aerosol Inhaler
2 puff INHALATION R BID
Rx Instructions:
rinse out after use to avoid thrush from developing
albuterol sulfate 90 mcg/actuation Hfa Aerosol Inhaler
2 puff INHALATION R Q4HPRN PRN (Reason: sob)
atorvastatin 20 mg Tablet
20 mg PO HS
therapeutic multivitamin Tablet
1 tab PO DAILY
magnesium hydroxide [Milk of Magnesia] 400 mg/5 mL Suspension
30 ml PO Q98H PRN (Reason: constipation, day 4 no bm)
cyanocobalamin (vitamin B-12) 500 mcg Tablet
500 mcg PO DAILY
bisacodyl [Dulcolax (bisacodyl)] 10 mg Suppository
10 mg ID DAILYPRN PRN (Reason: day 5 of no BM and MOM ineffective)
Fleet Enema 19-7 gram/118 mL Enema
118 ml ID DAILYPRN PRN (Reason: day 6 of no BM and bisacodyl ineffective)
melatonin 5 mg Capsule
5 mg PO HS
acetaminophen 325 mg tablet
650 mg PO Q4HPRN MDD 3000mg PRN (Reason: mild pain/fever >100)
cholecalciferol (vitamin D3) 25 mcg (1,000 unit) tablet
25 mcg PO DAILY
lidocaine 4 % adhesive patch,medicated
1 patch topical DAILY
polyethylene glycol 3350 17 gram Powder In Packet
17 g PO 1500 Qty: 30 0RF
metoprolol succinate 50 mg Tablet Extended Release 24 Hr
50 mg PO BID Qty: 60 0RF
acetaminophen [Tylenol Extra Strength] 500 mg Tablet
1,000 mg PO TID Qty: 90 0RF
pantoprazole 40 mg Tablet,Delayed Release (Dr/Ec)
40 mg PO BID Qty: 60 0RF
meropenem 500 mg Recon Soln
500 mg IV Q24H Qty: 9 0RF
warfarin 2 mg tablet
2 mg PO DAILY Qty: 30 0RF
Rx Instructions:
Start on 06/29
Referrals:
NONE,* [Family Provider] -
Interventions
Interventions:
*Risk Screen - Suicide Last Done: 07/14/24 15:07
*General Assessment Last Done: 07/14/24 15:07
*Neglect/Abuse Screening Last Done: 07/14/24 15:07
Discharge Date and Time
Print Language: CZECH
[2024-07-14 16:01] LABS: % Basophils 0.7 % (0-2); % Eosinophils 25.2 % (0-6); % Immature Granulocytes 0.8 % (0-0.5); % Lymphocytes 11.3 % (20.5-51.1); % Monocytes 12.6 % (1.7-9.3); % Neutrophils 49.4 % (42.2-75.2); Absolute Basophils 0.1 10^3/uL (0-0.2); Absolute Eosinophils 3.2 10^3/uL (0-0.7); Absolute Immature Granulocytes 0.1 10^3/uL (0-0.05); Absolute Lymphocytes 1.4 10^3/uL (1.2-3.4); Absolute Monocytes 1.6 10^3/uL (0.1-0.6); Absolute Neutrophils 6.3 10^3/uL (1.4-6.5); Hematocrit 29.6 % (39.0-52.0); Hemoglobin 9.6 g/dL (13.0-18.0); Mean Corp Hgb Conc. 32.4 g/dL (33.0-37.0); Mean Corpuscular Volume 86.3 fL (80.0-94.0); Mean Platelet Volume 9.5 fL (7.4-10.4); Nucleated Red Blood Cells % 0 % (-); Platelet Count 237 10^3/uL (130-400); Red Blood Cell Count 3.43 10^6/uL (4.70-6.10); Red Cell Dist. Width 16.7 % (11.5-14.5); White Blood Cell Count 12.7 10^3/uL (4.8-10.8)
[2024-07-14 16:24] LABS: ALT (SGPT) 15 U/L (0-50); AST (SGOT) 21 U/L (17-59); Albumin 3.1 g/dl (3.5-5.0); Alkaline Phosphatase 163 U/L (38-126); Blood Urea Nitrogen 25 mg/dl (9-20); Calcium 8.4 mg/dl (8.4-10.2); Carbon Dioxide 27 mmol/L (22-30); Chloride 98 mmol/L (98-107); Glucose 187 mg/dl (70-99); Potassium 4.3 mmol/L (3.5-5.1); Sodium 138 mmol/L (135-145); Total Bilirubin 0.6 mg/dl (0.2-1.3); Total Protein 6.8 g/dl (6.3-8.2); eGFR 36.11
[2024-07-14 16:36] VITALS: BMI 42.4
[2024-07-14] MEDS: BENADRYL 25 MG IV (17:11)
[2024-07-14] MEDS: DECADRON 10 MG IV (17:12)
[2024-07-14] MEDS: PEPCID 20 MG IV (17:15)
--- NOTE | 2024-07-14 17:46 | HPS.HSE ---
Family Physician
-
Family Physician: * NONE
Chief Complaint
-
generalized rash
History of Present Illness
74-year-old male with past medical history of hypertension hyperlipidemia renal failure A-fib on Coumadin, GI bleed, cellulitis back discitis(antibx were discontinued for this 07/02) sent by nursing facility for evaluation. Patient has a history of
intermittent rash during previous hospitalization. At that time he was diagnosed with possible vasculitis . patient was noted to have generalized rash for past six day. nurses were not able to draw labs for past six days. patient is on Coumadin.
He was supposed to get discharged from Rehab on Wednesday. They were not able to discharge him as they were not sure about his PT/INR, so they sent him to ER. denied SIMMONS, dizzy or syncope. denied fever, chills, chest pain, sob. denied abdominal
pain,n,v,d. denied dysuria or hematuria.
since the discharge from the hospital he was on Dialysis. as per patient plan for decreasing or stopping the Dialysis
Patient received dexamethasone, Benadryl, Pepcid in ER. Admitting for further management
Medical History
Past Medical History
Past Medical History: Reports Other
Additional Past Medical History:
Asthma
Type 2 diabetes
Hyperlipidemia
Hypertension
Lymphedema
Anxiety
Ventral hernia
Peripheral edema
Insomnia
Past Surgical History: Reports Other
Additional Past Surgical History:
Dental surgeries
Social History
Tobacco: Non-smoker
Alcohol: Occasional
Drug: None
Personal:
Living: Other (Rehab)
Family History
Family History: Not pertinent
Allergies / Home Medications
Allergies reflects when Allergies were last updated in [employer].
Home Medications with original date entered in [employer]
Allergy/Medication List:
Allergies
Allergy/AdvReac Type Severity Reaction Status Date / Time
No Known Allergies Allergy Unverified 05/20/24 08:12
Home Medications
albuterol sulfate 2.5 mg/3 mL (0.083 %) solution for nebulization 2.5 mg inhalation R Q6HPRN PRN sob 05/20/24
albuterol sulfate 90 mcg/actuation aerosol inhaler 2 puff inhalation R Q4HPRN PRN sob 05/20/24
mometasone-formoterol HFA 200 mcg-5 mcg/actuation aerosol inhaler (Dulera) 2 puff inhalation R BID sob 05/20/24
acetaminophen 325 mg tablet 650 mg PO Q4HPRN PRN mild pain/fever >100 06/09/24
atorvastatin 20 mg tablet 20 mg PO HS HLD 06/09/24
bisacodyl 10 mg rectal suppository (Dulcolax (bisacodyl)) 10 mg [place] DAILYPRN PRN day 5 of no BM and MOM ineffective 06/09/24
cholecalciferol (vitamin D3) 25 mcg (1,000 unit) tablet 25 mcg PO DAILY suppliment 06/09/24
cyanocobalamin (vitamin B-12) 500 mcg tablet 500 mcg PO DAILY Supplement 06/09/24
lidocaine 4 % topical patch 1 patch topical DAILY lower back 06/09/24
magnesium hydroxide 400 mg/5 mL oral suspension (Milk of Magnesia) 30 ml PO Q98H PRN constipation, day 4 no bm 06/09/24
melatonin 5 mg capsule 5 mg PO HS insomnia 06/09/24
sodium phosphates 19 gram-7 gram/118 mL enema (Fleet Enema) 118 ml [place] DAILYPRN PRN day 6 of no BM and bisacodyl ineffective 06/09/24
therapeutic multivitamin 1 tab PO DAILY Supplement 06/09/24
acetaminophen 500 mg tablet (Tylenol Extra Strength) 1,000 mg (2 x 500 mg) PO TID #90 tabs 06/28/24
meropenem 500 mg intravenous solution 500 mg IV Q24H #9 ea 06/28/24
metoprolol succinate 50 mg tablet,extended release 24 hr 50 mg PO BID #60 tabs 06/28/24
pantoprazole 40 mg tablet,delayed release 40 mg PO BID #60 tabs 06/28/24
polyethylene glycol 3350 17 gram oral powder packet 17 g PO 1500 #30 ea 06/28/24
warfarin 2 mg tablet 2 mg PO DAILY #30 tabs 06/28/24
Review of Systems
-
Constitutional: Reports No Symptoms
EENT: Reports No Symptoms
Respiratory: Reports No Symptoms
Cardiac: Reports No Symptoms
Abdomen/GI: Reports No Symptoms
: Reports No Symptoms
Musculoskeletal: Reports No Symptoms
Skin: Reports Other (Generalized rash)
Neurological: Reports No Symptoms
Endocrine: Reports No Symptoms
Hematologic/Lymphatic: Reports No Symptoms
Psych: Reports No Symptoms
Physical Exam
Vital Signs
Vital Signs
Temp Pulse Resp BP Pulse Ox
98.4 F 104 23 108/61 100
07/14/24 15:07 07/14/24 16:30 07/14/24 16:30 07/14/24 15:07 07/14/24 16:30
Physical Exam
General: Well Developed, Well Nourished and No Apparent Distress
HEENT: NormoCephalic, Moist mucous membranes and Atraumatic
Respiratory: Clear
Cardiac: S1/S2 and Regular Rhythm; No Murmur or Rub
GI: Soft, Non Tender, Non Distended and Normal Bowel Sounds; No Organomegaly
Rectal: Deferred by Provider
Musculoskeletal: No Clubbing, No Cyanosis and No Edema
Skin: Rash and Other (Bilateral lower extremities chronic)
Neuro: AO x 3 and Nonfocal/grossly intact
Psych: Calm
Laboratory Results
-
07/14/24 15:20
07/14/24 15:20
Laboratory Results
PT 18.1 Sec (11.4-14.6) H 07/14/24 15:20
INR 1.48 07/14/24 15:20
Total Bilirubin 0.6 mg/dl (0.2-1.3) 07/14/24 15:20
AST 21 U/L (17-59) 07/14/24 15:20
ALT 15 U/L (0-50) 07/14/24 15:20
Alkaline Phosphatase 163 U/L (38-126) H 07/14/24 15:20
Data Reviewed
-
Lab Data: Labs Reviewed by me
Impression/Plan
-
# Rash concern for dress syndrome
- WBCs 12.0
- Patient is afebrile
- Benadryl continued
- ID consulted
# Anemia of chronic disease
- Hemoglobin stable at 9.6
- No active bleed
- Continue to monitor chronic kidney disease stage IIIb
- Creatinine 1.9
- Continued to monitor
#End-stage renal disease
- On dialysis Wednesday
- Nephrology consulted
#Paroxysmal atrial fibrillation
-Continue rate control with metoprolol succinate 50 mg p.o. twice daily
-Coumadin continued
-Daily PT/INR
-Recent echo showed LVEF 65 to 70%, trace TR, biatrial dilatation, mild MR.
# Recent hemorrhagic shock secondary to GI bleeding/hematemesis leading to acute blood loss anemia associated with Eliquis, likely upper GI bleeding from history
#Coagulopathy s/p Kcentra
-Resolved. Patient received a total of 5 units of PRBCs. Received reversal agents in ER. HGB stabilized.
-Continue Protonix 40 mg p.o. BID
# chronic low back pain.
- Tylenol continued
- Lidocaine patch
# Possible L2/L3 discitis
- Previous the course of IV meropenem on 07/06/2024
#Type 2 Diabetes Mellitus
-Sliding scale insulin as needed and it is very low dose needed
# Hyperlipidemia
-Statin continued
#Morbid Obesity
#History of stage II pressure coccygeal area injury
# Chronic history of bilateral lower extremity lymphedema
# History of alcohol use. No history of recent alcohol intake
#History of asthma
#History of restrictive lung disease
- Nebs from home continued
# Significant BLE lymphedema
-Continue wound care and compression
Code Status: Full Code
DVT Prophylaxis: Anticoagulation with warfarin
--- NOTE | 2024-07-14 18:14 | W.PN.UPDATE ---
Update Note
Progress Note Update
This note serves as an addendum to the H&P by Matilde MAYNARD on July 14, 2024.
History of Presenting Illness
74-year-old male with past medical history of renal insufficiency (getting dialysis), hypertension, hyperlipidemia, renal failure, A-fib on Coumadin, GI bleed, cellulitis and discitis of the back (antibiotics were discontinued for this 07/02/24) sent
by nursing facility for evaluation. Patient has a history of intermittent rash during previous hospitalization. At that time he was diagnosed with possible vasculitis, and his rash improved significantly. Patient's also contributed to the
history in the emergency room. He denied any chest pain, shortness of breath, cough, dizziness or any other symptoms. Patient received dexamethasone, Benadryl and Pepcid in the emergency room.
Vital Signs
Afebrile
HR 90s
BP okay
RR in the 20s
Oxygen saturation 90s on room air
Physical Exam
General: Not in acute distress
HEENT: Normocephalic, Moist mucous membranes and Atraumatic
Respiratory: Clear to Auscultation Bilaterally
Cardiac: S1/S2 and Regular Rhythm
GI: Soft, Non Tender, Non Distended and Normal Bowel Sounds
Musculoskeletal: No Cyanosis and No Edema
Skin: Erythematous confluent rash in the bilateral upper extremities, back, abdomen, and bilateral lower extremities
Neuro: AAO x 3 and Nonfocal/grossly intact
Psych: Calm
Assessment/Plan
# Rash concern for Dress syndrome
# DRESS SYNDROME?
# Leukocytosis
- High eosinophils, rash is confluent in different areas of the body, recent exposure to antibiotics
- Possible mild to moderate DRESS syndrome
- Previous rash was different as per patient
- WBCs 12.0
- Patient is afebrile
- Benadryl continued
- Steroids (Dexamethasone 10 mg) given in the ER on 07/14/24 afternoon
- ID consulted, appreciate evaluation and recommendations
- At the time of admission, patient was very adamant that if his rash got worse then he did NOT want to be transferred to another facility for dermatology services
# Anemia of chronic disease
- Hemoglobin stable at 9.6
- No active bleed
- Continue to monitor chronic kidney disease stage IIIb
- Creatinine 1.9
- Continued to monitor
#End-stage renal disease
- On dialysis Wednesday
- Nephrology consulted
#Paroxysmal atrial fibrillation
-Continue rate control with metoprolol succinate 50 mg p.o. twice daily
-Coumadin continued
-Daily PT/INR
-Recent echo showed LVEF 65 to 70%, trace TR, biatrial dilatation, mild MR.
# Recent hemorrhagic shock secondary to GI bleeding/hematemesis leading to acute blood loss anemia associated with Eliquis, likely upper GI bleeding from history
#Coagulopathy s/p Kcentra
-Resolved. Patient recently received a total of 5 units of PRBCs. Received reversal agents in ER. HGB stabilized.
-Continue Protonix 40 mg p.o. BID
# chronic low back pain.
- Tylenol continued
- Lidocaine patch
# Recent Possible L2/L3 discitis on 05/27/24 MRI
- Previous the course of IV meropenem on 07/06/2024
#Type 2 Diabetes Mellitus
-Sliding scale insulin as needed and it is very low dose needed
# Hyperlipidemia
-Statin continued
#Morbid Obesity
#History of stage II pressure coccygeal area injury
# Chronic history of bilateral lower extremity lymphedema
# History of alcohol use. No history of recent alcohol intake
#History of asthma
#History of restrictive lung disease
- Nebs from home continued
# Significant BLE lymphedema
-Continue wound care and compression
Code Status: Full Code
DVT Prophylaxis: Anticoagulation with warfarin
--- NOTE | 2024-07-14 18:16 | PHANOTE ---
Addendum entered by Taniya Mcdaniels 07/14/24 19:17:
called residential again still missing for 3 and 4 no meds listed, spoke to [facility] she stated she sent it but no med list
Original Note:
med rec note- called patient nurse home at [phone] for meds list. patient only came with page 1 out of 4
--- NOTE | 2024-07-14 19:16 | W.CON.NEPH ---
Consultation
-
Date/Time Consultation Requested: July 14, 2024 at 6 PM
Date/Time Consultation Performed: July 14, 2024 at 7 PM
Requesting Provider: Dr. Love
Performing Provider: Dr. Norton
Reason for Consultation: Acute kidney injury
Medical History
-
Chief Complaint: Acute kidney injury requiring maintenance dialysis presenting with rash
History of Present Illness:
74-year-old male with past medical history of hypertension hyperlipidemia renal failure A-fib on Coumadin, GI bleed, cellulitis back discitis sent by nursing facility for evaluation. Patient has a history of intermittent rash during previous
hospitalization.
Patient's previous admission was complicated thrombocytopenia acute kidney injury chronic rash unconfirmed vasculitis though serologies negative sepsis and bacteremia on antibiotics broad-spectrum. He was continued on meropenem July 06, 2024 was
his last dose postdischarge.
Presents with diffuse worsening rash on his extremities with swelling rash on his chest and legs as well. Increasing arm swelling. He had his last dialysis yesterday, 07/13/2024 and is on a Wednesday schedule and had an extra
treatment on Wednesday for ultrafiltration.
Renal was consulted for dialysis management.
He had a 48-hour creatinine clearance done outpatient and is estimated GFR was around 24 mL/min and we were considering holding dialysis. That had yet to be done and he presents with increasing swelling and volume.
Past Medical History
Hypertension
Hyperlipidemia
Asthma
Morbid obesity
Lower extremity lymphedema
Type 2 diabetes
AFIB
Lymphedema with hypoalbuminemia
CKD with baseline creatinine of around 1.4-1.6
Alcohol abuse
Proximal right thigh mass
Bilateral nephrolith
Social History
Tobacco: Former Smoker
Alcohol: Daily ( 1-2 drinks)
Drug: None
Personal:
Living: Alone
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
Family History
no ckd
Family History: Not Pertinent
Allergies / Home Medications
Allergy/AdvReac Type Severity Reaction Status Date / Time
No Known Allergies Allergy Unverified 05/20/24 08:12
�Medication �Instructions �Recorded �Confirmed �Type
albuterol sulfate 2.5 mg/3 mL 2.5 mg inhalation R Q6HPRN PRN sob 05/20/24 06/09/24 History
(0.083 %) solution for nebulization
albuterol sulfate 90 mcg/actuation 2 puff inhalation R Q4HPRN PRN sob 05/20/24 06/09/24 History
aerosol inhaler
mometasone-formoterol HFA 200 2 puff inhalation R BID sob 05/20/24 06/09/24 History
mcg-5 mcg/actuation aerosol
inhaler (Dulera)
acetaminophen 325 mg tablet 650 mg PO Q4HPRN PRN mild 06/09/24 06/09/24 History
pain/fever >100
atorvastatin 20 mg tablet 20 mg PO HS HLD 06/09/24 06/09/24 History
bisacodyl 10 mg rectal suppository 10 mg [place] DAILYPRN PRN day 5 of no 06/09/24 06/09/24 History
(Dulcolax (bisacodyl)) BM and MOM ineffective
cholecalciferol (vitamin D3) 25 25 mcg PO DAILY suppliment 06/09/24 06/09/24 History
mcg (1,000 unit) tablet
cyanocobalamin (vitamin B-12) 500 500 mcg PO DAILY Supplement 06/09/24 06/09/24 History
mcg tablet
lidocaine 4 % topical patch 1 patch topical DAILY lower back 06/09/24 06/09/24 History
magnesium hydroxide 400 mg/5 mL 30 ml PO Q98H PRN constipation, 06/09/24 06/09/24 History
oral suspension (Milk of Magnesia) day 4 no bm
melatonin 5 mg capsule 5 mg PO HS insomnia 06/09/24 06/09/24 History
sodium phosphates 19 gram-7 118 ml [place] DAILYPRN PRN day 6 of no 06/09/24 06/09/24 History
gram/118 mL enema (Fleet Enema) BM and bisacodyl ineffective
therapeutic multivitamin 1 tab PO DAILY Supplement 06/09/24 06/09/24 History
acetaminophen 500 mg tablet 1,000 mg (2 x 500 mg) PO TID #90 06/28/24 Rx
(Tylenol Extra Strength) tabs
meropenem 500 mg intravenous 500 mg IV Q24H #9 ea 06/28/24 Rx
solution
metoprolol succinate 50 mg 50 mg PO BID #60 tabs 06/28/24 Rx
tablet,extended release 24 hr
pantoprazole 40 mg tablet,delayed 40 mg PO BID #60 tabs 06/28/24 Rx
release
polyethylene glycol 3350 17 gram 17 g PO 1500 #30 ea 06/28/24 Rx
oral powder packet
warfarin 2 mg tablet 2 mg PO DAILY #30 tabs 06/28/24 Rx
Review of Systems
-
Diffuse rash worse on his hands and arms. No chest pain no shortness of breath no fevers. Chronic lymphedema.
All other systems: Negative unless noted
Physical Exam
Vital Signs
Vital Signs
Temp Pulse Resp BP Pulse Ox
98.4 F 104 23 108/61 100
07/14/24 15:07 07/14/24 16:30 07/14/24 16:30 07/14/24 15:07 07/14/24 16:30
Lab Results
WBC 12.7 10^3/uL (4.8-10.8) H 07/14/24 15:20
RBC 3.43 10^6/uL (4.70-6.10) L 07/14/24 15:20
Hgb 9.6 g/dL (13.0-18.0) L 07/14/24 15:20
Hct 29.6 % (39.0-52.0) L 07/14/24 15:20
Plt Count 237 10^3/uL (130-400) 07/14/24 15:20
Sodium 138 mmol/L (135-145) 07/14/24 15:20
Potassium 4.3 mmol/L (3.5-5.1) 07/14/24 15:20
Chloride 98 mmol/L (98-107) 07/14/24 15:20
Carbon Dioxide 27 mmol/L (22-30) 07/14/24 15:20
BUN 25 mg/dl (9-20) H 07/14/24 15:20
Creatinine 1.9 mg/dL (0.7-1.3) H 07/14/24 15:20
eGFR 36.11 07/14/24 15:20
Glucose 187 mg/dl (70-99) H 07/14/24 15:20
Calcium 8.4 mg/dl (8.4-10.2) 07/14/24 15:20
Albumin 3.1 g/dl (3.5-5.0) L 07/14/24 15:20
Physical Exam
General: awake. confused , enephalopathic,obese
HEENT: EOMI, Anicteric, Conjunctivae pale, Facial Symmetry and Neck Supple
Respiratory: Normal Excursion, Nonlabored Respirations and Other (decreased BS)
Cardiac: S1/S2, Murmur and Rub
Abdomen: Soft, Nontender and Nondistended
Musculoskeletal: Edema (3+)
Skin: Other (Chronic skin changes with the erythema of the lateral lower extremities with worsening on hands and arms
Neuro: Difficult given patient's compromised mental state
Psych: answers some basic questions, flat affect
Data Reviewed
-
Labs: Labs Reviewed by me, Discussed with Physician and Discussed with Patient
Assessment/Plan
-
Impression:
Acute kidney injury with dialysis dependency with improved GFR/outpatient schedule Wednesday
Anemia of chronic disease
Diffuse chronic rash worsening on his hands and arms with significant swelling over the last 2 days
History of recently diagnosed atrial fibrillation on
Acute renal failure
History of discitis completed antibiotics meropenem on July 06
History of alcohol use
Chronic lymphedema
macular rash
Plan:
48-hour creatinine clearance was around 24 mL/min though the patient is significant volume overloaded his creatinine 1.9.
Will dialyze him tomorrow for volume as he has got significant swelling in his arms and legs some of it chronic.
In regard to rash other than completing antibiotics it appears to be no change in any medications.
Steroids and Benadryl given
Suggest infectious disease consultation
See orders for dialysis
[2024-07-14 19:49] VITALS: BP 125/70; BMI 41.2
[2024-07-14] MEDS: SYMBICORT 160/4.5 MCG INHALER INH (19:51)
[2024-07-14] MEDS: PROTONIX 40 MG PO (20:43)
[2024-07-14] MEDS: TOPROL XL 50 MG PO (20:43)
[2024-07-14] MEDS: TYLENOL 650 MG PO (21:22)
[2024-07-14] MEDS: LIPITOR 20 MG PO (21:23)
[2024-07-14] MEDS: MELATONIN 5 MG PO (21:23)
[2024-07-14 21:30] LABS: Glucose - Point of Care 236 mg/dl (70-99)
--- NOTE | 2024-07-14 21:57 | PTCARENOTE ---
Patient arrived to unit from ED via stretcher. Patient able to safely ambulate with rw into room 329 on . at bedside. Patient AAOx3 and able to make needs known. Redness and edema noted to b/l UE and b/l LE. Justus wraps on b/l le- pt.
requested to keep justus wraps on at night. Tele placed per orders. Oriented to unit. Call bowling within reach. Plan of care ongoing.
[2024-07-14 23:00] VITALS: BP 107/58
[2024-07-15] VITALS (7 sets, daily range): BP systolic 114–143; BP diastolic 67–81; BMI 41.5
[2024-07-15] MEDS: BENADRYL 25 MG IV ×2 (01:01→14:06)
[2024-07-15 07:53] LABS: Glucose - Point of Care 220 mg/dl (70-99)
[2024-07-15] MEDS: TOPROL XL 50 MG PO ×2 (07:53→20:05)
[2024-07-15] MEDS: PROTONIX 40 MG PO ×2 (07:53→20:05)
[2024-07-15] MEDS: NOVOLOG FLEXPEN-LOW RESISTANCE 2 UNITS SC ×2 (07:54→17:11)
[2024-07-15] MEDS: SYMBICORT 160/4.5 MCG INHALER INH (08:16)
[2024-07-15] MEDS: SOLU-MEDROL PF 20 MG IV (09:44)
[2024-07-15] MEDS: TYLENOL 650 MG PO ×2 (09:44→20:11)
--- NOTE | 2024-07-15 11:02 | W.PN.HOSP.TC ---
Today's Communication/Plan
-
One more dose of IV steroid
PT/OT, pt wants to go back to rehab
Assessment / Plan
Assessment / Plan
Physical Exam
General: Well Developed, Well Nourished and No Apparent Distress
HEENT: Normocephalic, Moist mucous membranes and Atraumatic
Respiratory: Clear
Cardiac: S1/S2 and Regular Rhythm; No Murmur or Rub
GI: Soft, Non Tender, Non Distended and Normal Bowel Sounds;
Musculoskeletal: No Clubbing, No Cyanosis and No Edema
Skin: Rash and Other (Bilateral lower extremities chronic)
Neuro: AO x 3 and Nonfocal/grossly intact
Psych: Calm
# Diffuse drug eruption , seems mostly morbilliform type
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 No other organs involvement as normal liver function test
Given one more dose of IV Steroid
Possible related to IV Abx use, off ABx now
Will add topical steroid also
PRN Benadryl
Might take up to 2-3 weeks to complete resolution
# Anemia of chronic disease
- Hemoglobin stable at 9.6
- No active bleed
- Continue to monitor chronic kidney disease stage IIIb
- Creatinine 1.9
- Continued to monitor
# Hyponatremia
#End-stage renal disease
- On dialysis Wednesday
- Nephrology consulted
#Paroxysmal atrial fibrillation
-Continue rate control with metoprolol succinate 50 mg p.o. twice daily
-Coumadin continued
-Daily PT/INR
-Recent echo showed LVEF 65 to 70%, trace TR, biatrial dilatation, mild MR.
# Recent hemorrhagic shock secondary to GI bleeding/hematemesis leading to acute blood loss anemia associated with Eliquis, likely upper GI bleeding from history
#Coagulopathy s/p Kcentra
-Resolved. Patient received a total of 5 units of PRBCs. Received reversal agents in ER. HGB stabilized.
-Continue Protonix 40 mg p.o. BID
# chronic low back pain.
- Tylenol continued
- Lidocaine patch
# Possible L2/L3 discitis
- Previous the course of IV meropenem on 07/06/2024
#Type 2 Diabetes Mellitus
-Sliding scale insulin as needed and it is very low dose needed
# Hyperlipidemia
-Statin continued
#Morbid Obesity
#History of stage II pressure coccygeal area injury
# Chronic history of bilateral lower extremity lymphedema
# History of alcohol use. No history of recent alcohol intake
#History of asthma
#History of restrictive lung disease
- Nebs from home continued
# Significant BLE lymphedema
-Continue wound care and compression
Code Status: Full Code
DVT Prophylaxis: Anticoagulation with warfarin
Total time spent to see the patient, examine the patient, review data and lab result, discuss treatment plan with the patient, nursing staff around 55 minutes
Anticipated Discharge: Within 24 hours
Subjective/Interval History
-
Date of Service: July 15, 2024
No more skin itching
No chest pain or sob
Objective Data
-
Labs:
Laboratory Results
07/15/24
06:00
WBC Pending
Hgb Pending
Hct Pending
Plt Count Pending
PT Pending
INR Pending
Sodium Pending
Potassium Pending
Chloride Pending
Carbon Dioxide Pending
BUN Pending
Creatinine Pending
Glucose Pending
Calcium Pending
Total Bilirubin Pending
AST Pending
ALT Pending
Alkaline Phosphatase Pending
Vital Signs:
Vital Signs
Temp Pulse Resp BP Pulse Ox
98.2 F 96 16 119/73 97
07/15/24 07:00 07/15/24 07:53 07/15/24 07:00 07/15/24 07:53 07/15/24 07:45
I&O
07/14/24 07/15/24 07/16/24
06:59 06:59 06:59
Intake Total 720 / 720
Output Total 100 / 100
Balance 620 / 620
--- NOTE | 2024-07-15 11:05 | CON.ID ---
Consultation
-
Date/Time Consultation Requested: 07/14/2024 1926
Date/Time Consultation Performed: 07/15/2024 1056
Requesting Provider: Matilde
Performing Provider: Noemy
Reason for Consultation: Rash
Chief Complaint / Past History
History of Present Illness
Kush Cramer is a 74-year-old man with a significant past medical history of possible L2/3 discitis, recently on a prolonged course of IV antibiotics, being evaluated at the request of Matilde Love regarding rash. History is obtained from chart review,
along with patient interview. Additional history is obtained from review of old records contained in the hospital EMR system.
Patient has previously been followed by Infectious Diseases, and was on a course of cefepime in the treatment of suspected L2-3 discitis. (No biopsy was performed; no microbiologic diagnosis). The patient was on a course of cefepime initially,
which was discontinued secondary to leukopenia. He then was transition to ertapenem, but this was discontinued on 06/20/2024 secondary to reported rash. He was transitioned to a course of levofloxacin, but this was discontinued on 06/23 secondary to
concern for tendinitis. Thereafter, he was placed on meropenem, and completed his 6-week course of antibiotics on 07/06/24
He presents to the emergency room on 07/14, having been sent in by jail staff for blood work. The patient reports that he recurrence of his rash approximately 6 days prior to his admission. He was noted on his bilateral arms, and started
after he had already finished his antibiotic course. He notes that it was initially pruritic, but that has decreased. He denies any fevers or chills. He denies any oral lesions.
Past History
Additional Past Medical History:
Diabetes mellitus
Asthma
Afib on eliquis
Dyslipidemia
Hypertension
Class III obesity BMI 42
Bilateral lower extremity lymphedema - goes to lymphedema PT
Alcohol use disorder
Allergy History:
No Known Allergies Allergy (Unverified 05/20/24 08:12)
Medications Reviewed: Yes
Current Antibiotics:
None
Social History
Tobacco: Former Smoker
Alcohol: Daily (1-2 drinks)
Drug: None
Personal:
Living: Alone
Family History
Family History: Not Pertinent
Review of Systems
Vital Signs
Temp Pulse Resp BP Pulse Ox
98.2 F 96 16 119/73 97
07/15/24 07:00 07/15/24 07:53 07/15/24 07:00 07/15/24 07:53 07/15/24 07:45
Physical Exam
Physical Exam
Constitutional: No Acute Distress, Comfortable, Chronically Ill and Non-toxic
Head: Normocephalic
Eyes: Pupils Equal, Pupils Round, No Conjunctival Hemorrhage and Sclera Anicteric
Oral: No Thrush and No Ulcers
Cardiovascular: Regular Rate and S1/S2; Negative S3/S4
Pulmonary: Clear; Negative Wheezes, Rales or Rhonchi
Gastrointestinal: Soft, Non Tender, Non Distended and Normal Bowel Sounds
Genito-Urinary: Negative Abraham
Extremities: Edema and Venous Insufficiency (B/L LE's with tissue texture changes consistent with venous stasis.); Negative Cyanosis or Erythema
Skin: Warm, Dry and Rash (Bilateral upper extremities with erythematous rash)
Neurological: Awake and Alert
Psychological: Calm
.
Lab / Diagnostic Study Results
Abs Immat Gran (auto) 0.1 10^3/uL (0-0.05) H 07/14/24 15:20
Absolute Neuts (auto) 6.3 10^3/uL (1.4-6.5) 07/14/24 15:20
Absolute Lymphs (auto) 1.4 10^3/uL (1.2-3.4) 07/14/24 15:20
Absolute Monos (auto) 1.6 10^3/uL (0.1-0.6) H 07/14/24 15:20
Absolute Basos (auto) 0.1 10^3/uL (0-0.2) 07/14/24 15:20
Immature Gran % 0.8 % (0-0.5) H 07/14/24 15:20
Neutrophils % 49.4 % (42.2-75.2) 07/14/24 15:20
Lymphocytes % 11.3 % (20.5-51.1) L 07/14/24 15:20
Monocytes % 12.6 % (1.7-9.3) H 07/14/24 15:20
Eosinophils % 25.2 % (0-6) H 07/14/24 15:20
Basophils % 0.7 % (0-2) 07/14/24 15:20
PT 18.1 Sec (11.4-14.6) H 07/14/24 15:20
INR 1.48 07/14/24 15:20
Assessment / Plan
Rash
Eosinophilia
Leukocytosis
Bilateral lower extremity lymphedema
Venous insufficiency lower extremities bilateral
Diabetes mellitus
Asthma
Afib (on eliquis)
Dyslipidemia
Hypertension
Class III obesity BMI 42
Recommendations:
At present, not clear whether current presentation is consistent with DRESS syndrome or not.
Would continue off antibiotics.
Continue with ernie wraps to the lower extremities.
No objection to systemic steroids for potential drug rash.
Would consider evaluation by Allergy/Immunology in the outpatient setting.
[2024-07-15 11:37] LABS: Glucose - Point of Care 274 mg/dl (70-99)
[2024-07-15] MEDS: NOVOLOG FLEXPEN-LOW RESISTANCE SC (11:38)
[2024-07-15 13:05] LABS: % Basophils 0.7 % (0-2); % Eosinophils 0.2 % (0-6); % Immature Granulocytes 1.1 % (0-0.5); % Lymphocytes 13.2 % (20.5-51.1); % Monocytes 8.1 % (1.7-9.3); % Neutrophils 76.7 % (42.2-75.2); Absolute Immature Granulocytes 0.1 10^3/uL (0-0.05); Absolute Lymphocytes 0.8 10^3/uL (1.2-3.4); Absolute Monocytes 0.5 10^3/uL (0.1-0.6); Absolute Neutrophils 4.7 10^3/uL (1.4-6.5); Hematocrit 24.2 % (39.0-52.0); Mean Corp Hgb Conc. 33.1 g/dL (33.0-37.0); Mean Corpuscular Volume 84.6 fL (80.0-94.0); Mean Platelet Volume 9.9 fL (7.4-10.4); Nucleated Red Blood Cells % 0 % (-); Platelet Count 196 10^3/uL (130-400); Red Blood Cell Count 2.86 10^6/uL (4.70-6.10); Red Cell Dist. Width 16.5 % (11.5-14.5); White Blood Cell Count 6.1 10^3/uL (4.8-10.8)
[2024-07-15 13:10] LABS: INR 1.67; PT 19.9 Sec (11.4-14.6)
[2024-07-15 13:14] LABS: ALT (SGPT) 14 U/L (0-50); AST (SGOT) 16 U/L (17-59); Albumin 2.7 g/dl (3.5-5.0); Alkaline Phosphatase 127 U/L (38-126); Blood Urea Nitrogen 34 mg/dl (9-20); Calcium 8.5 mg/dl (8.4-10.2); Carbon Dioxide 28 mmol/L (22-30); Chloride 97 mmol/L (98-107); Estimated Creatinine Clearance 36 ml/min; Glucose 257 mg/dl (70-99); Potassium 4.8 mmol/L (3.5-5.1); Sodium 134 mmol/L (135-145); Total Bilirubin 0.5 mg/dl (0.2-1.3); eGFR 28.71
--- NOTE | 2024-07-15 13:31 | W.PN.NEPH.HD ---
Assessment
-
tolerating dialysis ultrafiltration 4 L
Progress Note - Hemodialysis
-
Date of Service: July 15, 2024
Duration: 30 minutes and 3 hours
Potassium Bath: 3
Calcium Bath: 2.5
Opti-Dialyzer: 160
Ultrafiltration: Other (2kg)
Blood Flow: 400
Dialysate Flow: 600
Heparin: 0
EPO: [id number] units
[2024-07-15 14:00] LABS: Glycohemoglobin (HgbA1c) 5.9 % (4.0-5.6)
--- NOTE | 2024-07-15 14:06 | CM ---
Addendum entered by Marquita Andres 07/15/24 14:35:
PCP: [facility]
Pharmacy: [facility]
Original Note:
Patient seen at bedside
Dx: rash
PMH: hypertension hyperlipidemia renal failure A-fib on Coumadin, GI bleed, cellulitis back discitis
Patient was at [facility] for skilled rehab, they were transporting patient to his dialysis T-Thurs-Sat at [facility] in [place]-chair time 6:45am - spoke with Hafsa at [facility]
Prior was living with Sanam in a 2 story home in [place], 1 step to enter (has a home in [facility] as well)
Spouse works in [facility] during the week
PLOF: Ambulates with walker with supervison
DME: Walker, nebulize cane
PT/OT to evaluation
Denies VN/ Has been at [facility] SNF
Patient would like to return to [facility] - will need insurance auth
PLAN: await PT/OT, anticipate SNF when medically stable
[2024-07-15] MEDS: RETACRIT 8000 UNITS IV (15:26)
[2024-07-15 16:48] LABS: Glucose - Point of Care 243 mg/dl (70-99)
[2024-07-15] MEDS: COUMADIN 2 MG PO (17:05)
[2024-07-15] MEDS: LIPITOR 20 MG PO (21:18)
[2024-07-15] MEDS: MELATONIN 5 MG PO (21:18)
[2024-07-15 21:48] LABS: Glucose - Point of Care 252 mg/dl (70-99)
[2024-07-16] VITALS (8 sets, daily range): BP systolic 123–142; BP diastolic 58–79; PULSE 85–89; O2SAT 95–96; BMI 40.1
[2024-07-16] MEDS: BENADRYL 25 MG IV ×2 (00:36→07:25)
[2024-07-16] MEDS: SYMBICORT 160/4.5 MCG INHALER INH ×2 (01:16→07:58)
[2024-07-16 07:11] LABS: INR 1.79; PT 20.9 Sec (11.4-14.6)
[2024-07-16] MEDS: PROTONIX 40 MG PO ×2 (07:13→19:36)
[2024-07-16] MEDS: TOPROL XL 50 MG PO ×2 (07:13→19:36)
[2024-07-16] MEDS: SOLU-MEDROL PF 20 MG IV (07:17)
[2024-07-16 07:24] LABS: Glucose - Point of Care 170 mg/dl (70-99)
[2024-07-16] MEDS: NOVOLOG FLEXPEN-LOW RESISTANCE 1 UNITS SC (07:27)
[2024-07-16 07:29] LABS: ALT (SGPT) 13 U/L (0-50); AST (SGOT) 17 U/L (17-59); Albumin 2.8 g/dl (3.5-5.0); Alkaline Phosphatase 122 U/L (38-126); Blood Urea Nitrogen 47 mg/dl (9-20); Calcium 8.2 mg/dl (8.4-10.2); Carbon Dioxide 25 mmol/L (22-30); Chloride 98 mmol/L (98-107); Estimated Creatinine Clearance 33 ml/min; Glucose 164 mg/dl (70-99); Potassium 4.3 mmol/L (3.5-5.1); Sodium 134 mmol/L (135-145); Total Bilirubin 0.4 mg/dl (0.2-1.3); Total Protein 6.1 g/dl (6.3-8.2); eGFR 25.98
[2024-07-16 07:58] LABS: % Basophils 1.2 % (0-2); % Eosinophils 4.6 % (0-6); % Immature Granulocytes 1.2 % (0-0.5); % Lymphocytes 13.7 % (20.5-51.1); % Monocytes 12.4 % (1.7-9.3); % Neutrophils 66.9 % (42.2-75.2); Absolute Basophils 0.1 10^3/uL (0-0.2); Absolute Eosinophils 0.4 10^3/uL (0-0.7); Absolute Immature Granulocytes 0.1 10^3/uL (0-0.05); Absolute Lymphocytes 1.3 10^3/uL (1.2-3.4); Absolute Monocytes 1.2 10^3/uL (0.1-0.6); Absolute Neutrophils 6.2 10^3/uL (1.4-6.5); Hematocrit 22.8 % (39.0-52.0); Hemoglobin 7.7 g/dL (13.0-18.0); Mean Corp Hgb Conc. 33.8 g/dL (33.0-37.0); Mean Corpuscular Hgb 28.1 pg (27.0-31.0); Mean Corpuscular Volume 83.2 fL (80.0-94.0); Mean Platelet Volume 9.6 fL (7.4-10.4); Nucleated Red Blood Cells % 0 % (-); Platelet Count 190 10^3/uL (130-400); Red Blood Cell Count 2.74 10^6/uL (4.70-6.10); Red Cell Dist. Width 16.6 % (11.5-14.5); White Blood Cell Count 9.3 10^3/uL (4.8-10.8)
--- NOTE | 2024-07-16 08:58 | W.PN.HOSP.TC ---
Addendum entered and electronically signed by Shahzad Mirza MD 07/16/24 16:30:
Addendum
INR is 1.79. Will slightly higher dose of Coumadin tonight. Would avoid very high doses due to recent hx of GI bleeding.
End
Original Note:
Today's Communication/Plan
-
Await PT/ OT
Pt wants to resume SNF
PRN Benadryl
dc planning
Assessment / Plan
Assessment / Plan
Physical Exam
General: Well Developed, Well Nourished and No Apparent Distress
HEENT: Normocephalic, Moist mucous membranes and Atraumatic
Respiratory: Clear
Cardiac: S1/S2 and Regular Rhythm; No Murmur or Rub
GI: Soft, Non Tender, Non Distended and Normal Bowel Sounds;
Musculoskeletal: No Clubbing, No Cyanosis and No Edema
Skin: Rash and Other (Bilateral lower extremities chronic)
Neuro: AO x 3 and Nonfocal/grossly intact
Psych: Calm
# Diffuse drug eruption , seemed mostly morbilliform type
Now recovering with some dryness and peeling noted. Skin moisturizing cream can help.
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 No other organs involvement as normal liver function test
Given one more dose of IV Steroid
Possible related to IV Abx use, off ABx now
PRN Benadryl
Might take up to 2-3 weeks to complete resolution
# Anemia of chronic disease
- Hemoglobin stable at 9.6
- No active bleed
- Continue to monitor chronic kidney disease stage IIIb
- Creatinine 1.9
- Continued to monitor
# Hyponatremia
#End-stage renal disease
- On dialysis Wednesday
- Nephrology consulted
#Paroxysmal atrial fibrillation
-Continue rate control with metoprolol succinate 50 mg p.o. twice daily
-Coumadin continued
-Daily PT/INR
-Recent echo showed LVEF 65 to 70%, trace TR, biatrial dilatation, mild MR.
# Recent hemorrhagic shock secondary to GI bleeding/hematemesis leading to acute blood loss anemia associated with Eliquis, likely upper GI bleeding from history
#Coagulopathy s/p Kcentra
-Resolved. Patient received a total of 5 units of PRBCs. Received reversal agents in ER. HGB stabilized.
-Continue Protonix 40 mg p.o. BID
# chronic low back pain.
- Tylenol continued
- Lidocaine patch
# Possible L2/L3 discitis
- Previous the course of IV meropenem on 07/06/2024
#Type 2 Diabetes Mellitus
-Sliding scale insulin as needed and it is very low dose needed
# Hyperlipidemia
-Statin continued
#Morbid Obesity
#History of stage II pressure coccygeal area injury
# Chronic history of bilateral lower extremity lymphedema
# History of alcohol use. No history of recent alcohol intake
#History of asthma
#History of restrictive lung disease
- Nebs from home continued
# Significant BLE lymphedema
-Continue wound care and compression
Code Status: Full Code
DVT Prophylaxis: Anticoagulation with warfarin
Total time spent to see the patient, examine the patient, review data and lab result, discuss treatment plan with the patient, , nursing staff around 55 minutes
Anticipated Discharge: Within 24 hours
Subjective/Interval History
-
Date of Service: July 16, 2024
No worsening itching or more rashes
Objective Data
-
Labs:
Laboratory Results
07/16/24
06:43
WBC 9.3
Hgb 7.7 L
Hct 22.8 L
Plt Count 190
PT 20.9 H
INR 1.79
Sodium 134 L
Potassium 4.3
Chloride 98
Carbon Dioxide 25
BUN 47 H
Creatinine 2.5 H
Glucose 164 H
Calcium 8.2 L
Total Bilirubin 0.4
AST 17
ALT 13
Alkaline Phosphatase 122
Vital Signs:
Vital Signs
Temp Pulse Resp BP Pulse Ox
98.1 F 74 18 125/75 96
07/16/24 07:00 07/16/24 07:00 07/16/24 07:00 07/16/24 07:00 07/16/24 07:58
I&O
07/15/24 07/16/24 07/17/24
06:59 06:59 06:59
Intake Total 720 / 720 1470 / 1470
Output Total 100 / 100 500 / 500
Balance 620 / 620 970 / 970
[2024-07-16 12:11] LABS: Glucose - Point of Care 269 mg/dl (70-99)
[2024-07-16] MEDS: NOVOLOG FLEXPEN-LOW RESISTANCE 3 UNITS SC (12:51)
--- NOTE | 2024-07-16 13:28 | W.PN.NEPH.PH ---
Today's Communication / Plan
-
BMP in the morning
Assessment/Plan
-
Impression:
Acute kidney injury with dialysis dependency with improved GFR/outpatient schedule Wednesday
Anemia of chronic disease
Diffuse chronic rash worsening on his hands and arms with significant swelling over the last 2 days
History of recently diagnosed atrial fibrillation on
Acute renal failure
History of discitis completed antibiotics meropenem on July 06
History of alcohol use
Chronic lymphedema
macular rash
Plan:
48-hour creatinine clearance was around 24 mL/min though the patient is significant volume overloaded his creatinine 1.9. On initial encounter
He had dialysis yesterday ultrafiltrated 4 L volume status much improved
In regard to rash other than completing antibiotics it appears to be no change in any medications.
Steroids and Benadryl given with much improvement
Patient disease noted
Plan dialysis is Wednesday but we may be able to forego treatment as his clearance is adequate
-
-
Date of Service: July 16, 2024
CC / HPI / ROS
-
Chief Complaint:
Diffuse rash upper extremities and swelling
History of Present Illness:
Acute kidney injury dialysis dependent improving renal function presents with significant rash on his arms and swelling improved with steroids
Review of Systems:.
No chest pain or shortness of breath
Labs
-
Labs:
WBC 9.3 10^3/uL (4.8-10.8) 07/16/24 06:43
RBC 2.74 10^6/uL (4.70-6.10) L 07/16/24 06:43
Hgb 7.7 g/dL (13.0-18.0) L 07/16/24 06:43
Hct 22.8 % (39.0-52.0) L 07/16/24 06:43
Plt Count 190 10^3/uL (130-400) 07/16/24 06:43
Sodium 134 mmol/L (135-145) L 07/16/24 06:43
Potassium 4.3 mmol/L (3.5-5.1) 07/16/24 06:43
Chloride 98 mmol/L (98-107) 07/16/24 06:43
Carbon Dioxide 25 mmol/L (22-30) 07/16/24 06:43
BUN 47 mg/dl (9-20) H 07/16/24 06:43
Creatinine 2.5 mg/dL (0.7-1.3) H 07/16/24 06:43
eGFR 25.98 07/16/24 06:43
Glucose 164 mg/dl (70-99) H 07/16/24 06:43
Calcium 8.2 mg/dl (8.4-10.2) L 07/16/24 06:43
Albumin 2.8 g/dl (3.5-5.0) L 07/16/24 06:43
Physical Exam
-
Vital Signs:
Vital Signs
Temp Pulse Resp BP Pulse Ox
98.5 F 85 18 142/74 96
07/16/24 11:00 07/16/24 11:00 07/16/24 11:00 07/16/24 11:00 07/16/24 11:00
Cardiovascular:: Regular rate and rhythm
Respiratory:: Bilateral: CTA
Lung Excursion:: Normal
Abdomen:: Nontender and Soft
Bowel Sounds:: Normal
Extremity Edema:: +1: Bilateral:
[2024-07-16] MEDS: TYLENOL 650 MG PO (13:38)
--- NOTE | 2024-07-16 15:31 | CM ---
PT rec SNF
Referral placed to [facility]
Patient was at [facility] for skilled rehab, they were transporting patient to his dialysis T-Thurs-Sat at [facility] in [place]-chair time 6:45am
Will need ins authorization
PLAN: [facility] SNF, pending bed availability when stable
[2024-07-16 16:48] LABS: Glucose - Point of Care 302 mg/dl (70-99)
[2024-07-16] MEDS: COUMADIN 3 MG PO (17:09)
[2024-07-16] MEDS: NOVOLOG FLEXPEN-LOW RESISTANCE 4 UNITS SC (17:10)
[2024-07-16] MEDS: SYMBICORT 160/4.5 MCG INHALER 2 PUFF INH (20:08)
[2024-07-16 21:15] LABS: Glucose - Point of Care 322 mg/dl (70-99)
[2024-07-16] MEDS: LIPITOR 20 MG PO (21:32)
[2024-07-16] MEDS: MELATONIN 5 MG PO (21:32)
--- NOTE | 2024-07-16 23:44 | PTCARENOTE ---
Oral care was not performed on the patient because they stated that it was their preference to brush their teeth in the morning instead.
--- NOTE | 2024-07-17 00:34 | PTCARENOTE ---
[facility], DIRECTOR OF SALES Casandra Yung notified. No new orders at this time. Plan of care ongoing.
[2024-07-17] MEDS: TYLENOL 650 MG PO (00:43)
[2024-07-17 03:00] VITALS: BP 134/73
[2024-07-17] MEDS: BENADRYL 25 MG IV (05:45)
[2024-07-17 06:00] VITALS: BMI 40.6
[2024-07-17 06:22] LABS: % Basophils 0.8 % (0-2); % Eosinophils 11.6 % (0-6); % Immature Granulocytes 0.9 % (0-0.5); % Lymphocytes 11.7 % (20.5-51.1); % Monocytes 12.8 % (1.7-9.3); % Neutrophils 62.2 % (42.2-75.2); Absolute Basophils 0.1 10^3/uL (0-0.2); Absolute Eosinophils 1.3 10^3/uL (0-0.7); Absolute Immature Granulocytes 0.1 10^3/uL (0-0.05); Absolute Lymphocytes 1.3 10^3/uL (1.2-3.4); Absolute Monocytes 1.5 10^3/uL (0.1-0.6); Absolute Neutrophils 7.1 10^3/uL (1.4-6.5); Hematocrit 23.6 % (39.0-52.0); Hemoglobin 7.9 g/dL (13.0-18.0); Mean Corp Hgb Conc. 33.5 g/dL (33.0-37.0); Mean Corpuscular Hgb 27.9 pg (27.0-31.0); Mean Corpuscular Volume 83.4 fL (80.0-94.0); Mean Platelet Volume 9.7 fL (7.4-10.4); Nucleated Red Blood Cells % 0 % (-); Platelet Count 207 10^3/uL (130-400); Red Blood Cell Count 2.83 10^6/uL (4.70-6.10); Red Cell Dist. Width 16.2 % (11.5-14.5); White Blood Cell Count 11.3 10^3/uL (4.8-10.8)
[2024-07-17 06:39] LABS: INR 1.72; PT 20.4 Sec (11.4-14.6)
[2024-07-17 06:50] LABS: ALT (SGPT) 16 U/L (0-50); AST (SGOT) 29 U/L (17-59); Albumin 2.9 g/dl (3.5-5.0); Alkaline Phosphatase 100 U/L (38-126); Blood Urea Nitrogen 62 mg/dl (9-20); Calcium 7.9 mg/dl (8.4-10.2); Carbon Dioxide 25 mmol/L (22-30); Chloride 97 mmol/L (98-107); Estimated Creatinine Clearance 37 ml/min; Glucose 212 mg/dl (70-99); Potassium 4.2 mmol/L (3.5-5.1); Sodium 132 mmol/L (135-145); Total Bilirubin 0.6 mg/dl (0.2-1.3); eGFR 30.28
[2024-07-17 07:09] LABS: Glucose - Point of Care 196 mg/dl (70-99)
[2024-07-17] MEDS: PROTONIX 40 MG PO ×2 (07:30→21:09)
[2024-07-17] MEDS: TOPROL XL 50 MG PO ×2 (07:30→21:09)
[2024-07-17] MEDS: SOLU-MEDROL PF 20 MG IV (07:30)
[2024-07-17] MEDS: SYMBICORT 160/4.5 MCG INHALER 2 PUFF INH ×2 (07:33→20:19)
[2024-07-17] MEDS: NOVOLOG FLEXPEN-LOW RESISTANCE 1 UNITS SC (07:35)
[2024-07-17 07:41] VITALS: BP 123/77
--- NOTE | 2024-07-17 07:58 | W.PN.HOSP.TC ---
Today's Communication/Plan
-
Appreciate hematology
Placement pending
Assessment / Plan
Assessment / Plan
Physical Exam
General: Well Developed, Well Nourished and No Apparent Distress
HEENT: Normocephalic, Moist mucous membranes and Atraumatic
Respiratory: Clear
Cardiac: S1/S2 and Regular Rhythm; No Murmur or Rub
GI: Soft, Non Tender, Non Distended and Normal Bowel Sounds;
Musculoskeletal: No Clubbing, No Cyanosis and No Edema
Skin: Rash and Other (Bilateral lower extremities chronic)
Neuro: AO x 3 and Nonfocal/grossly intact
Psych: Calm
Assessment/Plan
# Diffuse drug eruption , seemed mostly morbilliform type
Now recovering with some dryness and peeling noted. Skin moisturizing cream can help.
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 No other organs involvement as normal liver function test
Given one more dose of IV Steroid
Possible related to IV Abx use, off ABx now
PRN Benadryl
Might take up to 2-3 weeks to complete resolution
Consulted hematology given eosinophilia in the setting of rash
Will need outpatient dermatology/allergy/immunology
# Anemia of chronic disease
- No active bleed
- Continue to monitor chronic kidney disease stage IIIb
- Creatinine 1.9
- Continued to monitor
# Hyponatremia
#End-stage renal disease
- On dialysis Wednesday
- Nephrology consulted
#Paroxysmal atrial fibrillation
-Continue rate control with metoprolol succinate 50 mg p.o. twice daily
-Coumadin continued
-Daily PT/INR
-Recent echo showed LVEF 65 to 70%, trace TR, biatrial dilatation, mild MR.
# Recent hemorrhagic shock secondary to GI bleeding/hematemesis leading to acute blood loss anemia associated with Eliquis, likely upper GI bleeding from history
#Coagulopathy s/p Kcentra
-Resolved. Patient received a total of 5 units of PRBCs. Received reversal agents in ER. HGB stabilized.
-Continue Protonix 40 mg p.o. BID
# chronic low back pain.
- Tylenol continued
- Lidocaine patch
# Possible L2/L3 discitis
- Previous the course of IV meropenem on 07/06/2024
#Type 2 Diabetes Mellitus
-Sliding scale insulin as needed and it is very low dose needed
# Hyperlipidemia
-Statin continued
#Morbid Obesity
#History of stage II pressure coccygeal area injury
# Chronic history of bilateral lower extremity lymphedema
# History of alcohol use. No history of recent alcohol intake
#History of asthma
#History of restrictive lung disease
- Nebs from home continued
# Significant BLE lymphedema
-Continue wound care and compression
Code Status: Full Code
DVT Prophylaxis: Anticoagulation with warfarin
Anticipated Discharge: 24 - 48 hours
Subjective/Interval History
-
Date of Service: July 17, 2024
Patient was seen and examined. Overall his rash is better.
Objective Data
-
Labs:
Laboratory Results
07/17/24
06:04
WBC 11.3 H
Hgb 7.9 L
Hct 23.6 L
Plt Count 207
PT 20.4 H
INR 1.72
Sodium 132 L
Potassium 4.2
Chloride 97 L
Carbon Dioxide 25
BUN 62 H
Creatinine 2.2 H
Glucose 212 H
Calcium 7.9 L
Total Bilirubin 0.6
AST 29
ALT 16
Alkaline Phosphatase 100
Vital Signs:
Vital Signs
Temp Pulse Resp BP Pulse Ox
97.6 F 89 20 123/77 95
07/17/24 07:41 07/17/24 07:41 07/17/24 07:41 07/17/24 07:41 07/17/24 07:41
I&O
07/16/24 07/17/24 07/18/24
06:59 06:59 06:59
Intake Total 1470 / 1470 2640 / 2640
Output Total 500 / 500 850 / 850
Balance 970 / 970 1790 / 1790
--- NOTE | 2024-07-17 08:55 | CON.ONC ---
Consultation
-
Date Consultation Requested: 07/17/24
Date Consultation Performed: 07/17/24
Requesting Provider: Mick Malin MD
Performing Provider: Carola Almanza MD
Reason for Consultation: Eosinophilia, rash, recent antibiotics
Impression
Impression
Asthma
Acute renal failure, on dialysis, improving
Multifactorial anemia: recent UGIB, question of baseline iron deficiency with low MCV and elevated platelets at initial presentation, renal insufficiency, inflammatory state
Rash, improving
Eosinophilia, new this admission
PAF on coumadin
Recent hemorrhagic shock due to GIB on Eliquis, reversed with KCentra
Back pain with possible L2/L3 discitis, s/p course of IV meropenem completed 07/06/24
Stage II pressure ulcer
Chronic bilateral lower extremity lymphedema limiting functional mobility
Plan
Plan
Needs biopsy of rash.
The rash does not have the appearance of vasculitis to me.
Etiology of renal failure unclear, he is not amenable to kidney biopsy
Anemia workup ordered, although the renal insufficiency and inflammatory state alone are cause enough for anemia.
Consider outpt MARILYN, we can administer if he goes off dialysis.
Eosinophilia was not present upon admission so I am not suspicious of an underlying primary blood dyscrasia. Suspect the eosinophilia is part of an allergic reaction.
Thank you for consult, will follow along with you.
Patient History
History of Present Illness
74-year-old man with complicated medical history recently. He has a prior medical history of hypertension, type 2 diabetes, and chronic severe lymphedema. He presented in early May with malaise, mild asthma, and decreased urine output. He had
no fever, nausea, vomiting or diarrhea at presentation. He was admitted May 20. Hospital issues in addition to the acute renal failure included new onset atrial fibrillation, sepsis due to lower extremity cellulitis versus L2-L3 discitis, and
a large right thigh mass of unclear etiology. He was treated with IV cefepime with improvement and plan to complete a 6-week course of antibiotics. He was continued on Eliquis for A-fib at discharge 05/30. On June 09, he was found to have an
acute change in mental status and hematemesis, sent back to the ED and found to have a hemoglobin of 5 with creatinine of 5. He and his declined EGD. Renal failure progressed and he was started on dialysis that admission, ultimately
discharged on June 28 on coumadin. He was sent back to the hospital from nursing facility on July 14 with rash but also because nursing had been unable to draw labs to check INR. Workup of the drug eruption was notable for eosinophilia which
resolved with intravenous steroids. Hospital course also notable for anemia attributed to renal insufficiency, hemoglobin 9.6, creatinine 1.9. We are consulted for eval of anemia and eosinophilia. Question of chronic component to rash. Does not
appear to have undergone biopsy of the rash.
Admission CBC from 05/20 was significant for WBC 24.2, almost all neutrophils with normal eosinophil count and percent, Hgb 12.7, Plt 474. No anemia labs done. Most recent Cr is 2.2. LFT's normal. 06/09 U/S 2+ occult blood, 3-6 RBC/HPF, albumin 3+.
Serologic workup positive for anti-streptolysin A, negative WES, normal PR3 and myeloperoxidase. Eosinophils were 3200 (25%) on admission, normalized with steroids, now 1300 (11.6%).
Past-Medical/Surgical History
Past Medical History
Asthma
Type 2 diabetes
Hyperlipidemia
Hypertension
Lymphedema
Anxiety
Ventral hernia
Peripheral edema
Insomnia
Past Surgical History
Dental surgeries
Social History
Tobacco: Former Smoker
Alcohol: Daily (1-2 drinks)
Drug: None
Personal:
Living: Rehab/SNF
Family History
Family History: Not pertinent
Patient Medication
�Medication �Instructions �Recorded �Confirmed �Last Taken �Type
albuterol sulfate 2.5 mg/3 mL 2.5 mg inhalation R Q6HPRN PRN sob 05/20/24 06/09/24 05/19/24 History
(0.083 %) solution for nebulization
albuterol sulfate 90 mcg/actuation 2 puff inhalation R Q4HPRN PRN sob 05/20/24 06/09/24 Unknown History
aerosol inhaler
mometasone-formoterol HFA 200 2 puff inhalation R BID sob 05/20/24 06/09/24 05/19/24 History
mcg-5 mcg/actuation aerosol
inhaler (Dulera)
acetaminophen 325 mg tablet 650 mg PO Q4HPRN PRN mild 06/09/24 06/09/24 Unknown History
pain/fever >100
atorvastatin 20 mg tablet 20 mg PO HS HLD 06/09/24 06/09/24 Unknown History
bisacodyl 10 mg rectal suppository 10 mg MI DAILYPRN PRN day 5 of no 06/09/24 06/09/24 Unknown History
(Dulcolax (bisacodyl)) BM and MOM ineffective
cholecalciferol (vitamin D3) 25 25 mcg PO DAILY suppliment 06/09/24 06/09/24 Unknown History
mcg (1,000 unit) tablet
cyanocobalamin (vitamin B-12) 500 500 mcg PO DAILY Supplement 06/09/24 06/09/24 Unknown History
mcg tablet
lidocaine 4 % topical patch 1 patch topical DAILY lower back 06/09/24 06/09/24 Unknown History
magnesium hydroxide 400 mg/5 mL 30 ml PO Q98H PRN constipation, 06/09/24 06/09/24 Unknown History
oral suspension (Milk of Magnesia) day 4 no bm
melatonin 5 mg capsule 5 mg PO HS insomnia 06/09/24 06/09/24 Unknown History
sodium phosphates 19 gram-7 118 ml MI DAILYPRN PRN day 6 of no 06/09/24 06/09/24 Unknown History
gram/118 mL enema (Fleet Enema) BM and bisacodyl ineffective
therapeutic multivitamin 1 tab PO DAILY Supplement 06/09/24 06/09/24 Unknown History
acetaminophen 500 mg tablet 1,000 mg (2 x 500 mg) PO TID #90 06/28/24 Unknown Rx
(Tylenol Extra Strength) tabs
meropenem 500 mg intravenous 500 mg IV Q24H #9 ea 06/28/24 Unknown Rx
solution
metoprolol succinate 50 mg 50 mg PO BID #60 tabs 06/28/24 Unknown Rx
tablet,extended release 24 hr
pantoprazole 40 mg tablet,delayed 40 mg PO BID #60 tabs 06/28/24 Unknown Rx
release
polyethylene glycol 3350 17 gram 17 g PO 1500 #30 ea 06/28/24 Unknown Rx
oral powder packet
warfarin 2 mg tablet 2 mg PO DAILY #30 tabs 06/28/24 Unknown Rx
Active Medications
Generic Name Dose Route Start Last Admin
Trade Name Freq PRN Reason Stop Dose Admin
Acetaminophen 650 mg 07/14/24 20:47 07/17/24 00:43
Acetaminophen 325 Mg Tablet PO 08/11/24 20:46 650 mg
Q4HPRN PRN Administration
mild pain/SIMMONS/temp>100.5
Albuterol 2 puff 07/14/24 19:26
Albuterol Hfa [90 Mcg/Dose] Inhaler INH
R Q4HPRN PRN
sob
Protocol
Albuterol Sulfate 2.5 mg 07/14/24 19:26
Albuterol Nebs 2.5 Mg/3 Ml Ampul INH
R Q6HPRN PRN
sob
Protocol
Atorvastatin Calcium 20 mg 07/14/24 22:00 07/16/24 21:32
Atorvastatin (Lipitor) 20 Mg Tablet PO 08/11/24 21:59 20 mg
HS RANDI Administration
Bisacodyl 10 mg 07/14/24 19:26
Bisacodyl 10 Mg Rectal Suppository RECTAL 08/11/24 19:25
[id number] PRN
constipation
Budesonide/Formoterol Fumarate 2 puff 07/14/24 20:00 07/17/24 07:33
Symbicort Inhaler 160/4.5 INH 08/11/24 19:59 2 puff
R BID RANDI Administration
Dextrose 12.5 grams 07/14/24 19:26
Dextrose 50% (0.5 Grams/Ml) 50 Ml Syringe IV 08/11/24 19:25
[id number] PRN
hypoglycemia
Protocol
Diphenhydramine HCl 25 mg 07/14/24 19:26 07/17/24 05:45
Diphenhydramine 50 Mg/Ml 1 Ml Vial IV 08/11/24 19:25 25 mg
Q6HPRN PRN Administration
itching
Glucagon 1 mg 07/14/24 19:26
Glucagon 1 Mg Vial IM 08/11/24 19:25
PRN PRN
hypoglycemia
Protocol
Insulin Aspart 0 units 07/15/24 07:30 07/17/24 07:35
Insulin Aspart Low Resistance 300 Units/3 Ml Pen.Injctr SC 08/12/24 07:29 1 units
AC RANDI Administration
Protocol
Lidocaine 1 patch 07/15/24 08:00 07/17/24 07:29
Lidocaine 4% Topical Patch TOPICAL 08/12/24 07:59 Not Given
DAILY RANDI
Protocol
Melatonin 5 mg 07/14/24 22:00 07/16/24 21:32
Melatonin 5 Mg Tablet PO 08/11/24 21:59 5 mg
HS RANDI Administration
Metoprolol Succinate 50 mg 07/14/24 20:00 07/17/24 07:30
Metoprolol 50 Mg Extended Release Tablet PO 08/11/24 19:59 50 mg
BID RANDI Administration
Pantoprazole Sodium 40 mg 07/14/24 20:00 07/17/24 07:30
Pantoprazole 40 Mg Delayed Release Tablet PO 08/11/24 19:59 40 mg
BID RANDI Administration
Polyethylene Glycol 17 grams 07/14/24 19:26
Polyethylene Glycol Powder 17 Grams Packet PO 08/11/24 19:25
DAILYPRN PRN
constipation
Polyethylene Glycol 17 grams 07/15/24 15:00 07/16/24 12:52
Polyethylene Glycol Powder 17 Grams Packet PO 08/12/24 14:59 Not Given
DAILY@1500 RANDI
Senna/Docusate Sodium 1 tablet 07/14/24 19:26
Docusate W/Senna (Giulia-Colace) Tablet PO 08/11/24 19:25
BIDPRN PRN
constipation
Sodium Chloride 0 flush 07/14/24 20:00
Sodium Chloride 0.9% (Flush) Syringe IV 08/11/24 19:59
PER PROTOCOL RANDI
Warfarin Sodium 3 mg 07/16/24 18:00 07/16/24 17:09
Warfarin 3 Mg Tablet PO 07/21/24 17:59 3 mg
QPM RANDI Administration
Physical Exam
-
General: Well Developed and Well Nourished
HEENT: Moist Mucous Membranes; Negative Jaundice
Cardiology: Normal Sinus Rhythm, S1 and S2
Pulmonary: Clear; Negative Wheezes or Rales
GI: Soft and Normal Bowel Sounds
Musculoskeletal: No Clubbing, No Cyanosis and No Edema
Extremities: No C/C/E
Neurology: Non Focal
Skin: Rash (Confluent erythematous rash on arms with skin peeling. Macular rash upper chest. )
Hematologic / Lymphatic: No Lymphadenopathy
Psych: Calm and Intact Judgement/Insight
Labs
Lab Results
WBC 11.3 10^3/uL (4.8-10.8) H 07/17/24 06:04
RBC 2.83 10^6/uL (4.70-6.10) L 07/17/24 06:04
Hgb 7.9 g/dL (13.0-18.0) L 07/17/24 06:04
Hct 23.6 % (39.0-52.0) L 07/17/24 06:04
MCV 83.4 fL (80.0-94.0) 07/17/24 06:04
MCH 27.9 pg (27.0-31.0) 07/17/24 06:04
MCHC 33.5 g/dL (33.0-37.0) 07/17/24 06:04
RDW 16.2 % (11.5-14.5) H 07/17/24 06:04
Plt Count 207 10^3/uL (130-400) 07/17/24 06:04
MPV 9.7 fL (7.4-10.4) 07/17/24 06:04
Abs Immat Gran (auto) 0.1 10^3/uL (0-0.05) H 07/17/24 06:04
Absolute Neuts (auto) 7.1 10^3/uL (1.4-6.5) H 07/17/24 06:04
Absolute Lymphs (auto) 1.3 10^3/uL (1.2-3.4) 07/17/24 06:04
Absolute Monos (auto) 1.5 10^3/uL (0.1-0.6) H 07/17/24 06:04
Absolute Eos (auto) 1.3 10^3/uL (0-0.7) H 07/17/24 06:04
Absolute Basos (auto) 0.1 10^3/uL (0-0.2) 07/17/24 06:04
Immature Gran % 0.9 % (0-0.5) H 07/17/24 06:04
Neutrophils % 62.2 % (42.2-75.2) 07/17/24 06:04
Lymphocytes % 11.7 % (20.5-51.1) L 07/17/24 06:04
Monocytes % 12.8 % (1.7-9.3) H 07/17/24 06:04
Eosinophils % 11.6 % (0-6) H 07/17/24 06:04
Basophils % 0.8 % (0-2) 07/17/24 06:04
Creatinine 2.2 mg/dL (0.7-1.3) H 07/17/24 06:04
Vital Signs
Vital Signs
Temp Pulse Resp BP Pulse Ox
97.6 F 89 20 123/77 95
07/17/24 07:41 07/17/24 07:41 07/17/24 07:41 07/17/24 07:41 07/17/24 07:41
[2024-07-17 11:08] VITALS: BP 127/72
[2024-07-17 11:25] LABS: Glucose - Point of Care 265 mg/dl (70-99)
[2024-07-17 11:38] LABS: Erythrocyte Sed Rate 1 mm/hour (0-20)
[2024-07-17 11:45] LABS: Reticulocyte Count 2.7 % (0.4-2.8)
--- NOTE | 2024-07-17 12:10 | W.PN.NEPH.PH ---
Today's Communication / Plan
-
Dialysis tomorrow
Assessment/Plan
-
Impression:
Acute kidney injury with dialysis dependency with improved GFR/outpatient schedule Wednesday
Anemia of chronic disease
Diffuse chronic rash worsening on his hands and arms with significant swelling over the last 2 days
History of recently diagnosed atrial fibrillation on
Acute renal failure
History of discitis completed antibiotics meropenem on July 06
History of alcohol use
Chronic lymphedema
macular rash
Plan:
48-hour creatinine clearance was around 24 mL/min though the patient is significant volume overloaded his creatinine 1.9. On initial encounter
Dialysis tomorrow
Lasix 80 mg twice daily po
Volume will be our major issue likely for him to be able to come off dialysis
Agree with need for skin biopsy
We could also consider kidney biopsy though this will be more difficult given his need for anticoagulation
Notably he has not had fevers
High risk situation
-
-
Date of Service: July 17, 2024
CC / HPI / ROS
-
Chief Complaint:
Diffuse rash upper extremities and swelling
History of Present Illness:
Acute kidney injury dialysis dependent improving renal function presents with significant rash on his arms and swelling improved with steroids
Review of Systems:.
No chest pain or shortness of breath
Labs
-
Labs:
WBC 11.3 10^3/uL (4.8-10.8) H 07/17/24 06:04
RBC 2.83 10^6/uL (4.70-6.10) L 07/17/24 06:04
Hgb 7.9 g/dL (13.0-18.0) L 07/17/24 06:04
Hct 23.6 % (39.0-52.0) L 07/17/24 06:04
Plt Count 207 10^3/uL (130-400) 07/17/24 06:04
Sodium 132 mmol/L (135-145) L 07/17/24 06:04
Potassium 4.2 mmol/L (3.5-5.1) 07/17/24 06:04
Chloride 97 mmol/L (98-107) L 07/17/24 06:04
Carbon Dioxide 25 mmol/L (22-30) 07/17/24 06:04
BUN 62 mg/dl (9-20) H 07/17/24 06:04
Creatinine 2.2 mg/dL (0.7-1.3) H 07/17/24 06:04
eGFR 30.28 07/17/24 06:04
Glucose 212 mg/dl (70-99) H 07/17/24 06:04
Calcium 7.9 mg/dl (8.4-10.2) L 07/17/24 06:04
Albumin 2.9 g/dl (3.5-5.0) L 07/17/24 06:04
Physical Exam
-
Vital Signs:
Vital Signs
Temp Pulse Resp BP Pulse Ox
97.7 F 86 20 127/72 96
07/17/24 11:08 07/17/24 11:08 07/17/24 11:08 07/17/24 11:08 07/17/24 11:08
[2024-07-17] MEDS: NOVOLOG FLEXPEN-LOW RESISTANCE 3 UNITS SC (13:00)
--- NOTE | 2024-07-17 13:07 | W.PN.ID1 ---
Date of Service
Date of Service: July 17, 2024
Today's Communication
Observe off antibiotics.
Assessment / Plan
Rash
Eosinophilia
Leukocytosis
Bilateral lower extremity lymphedema
Venous insufficiency lower extremities bilateral
Diabetes mellitus
Asthma
Afib (on eliquis)
Dyslipidemia
Hypertension
Class III obesity BMI 42
Recommendations:
Would continue off antibiotics.
Continue with ernie wraps to the lower extremities.
No objection to systemic steroids for potential drug rash.
Would consider evaluation by Allergy/Immunology in the outpatient setting.
Chief Complaint
-: Other (Rash)
Subjective / Review of Systems
Review of Systems: No Fever and No Chills
Vital Signs / Physical Exam
Vital Signs
Vital Signs
Temp Pulse Resp BP Pulse Ox
97.7 F 86 20 127/72 96
07/17/24 11:08 07/17/24 11:08 07/17/24 11:08 07/17/24 11:08 07/17/24 11:08
Physical Exam
Constitutional: No Acute Distress, Comfortable, Chronically Ill and Non-toxic
Eyes: Sclera Anicteric
Pulmonary: Non Labored; Negative Wheezes
Gastrointestinal: Non Distended
Skin: Rash (Erythematous rash on upper extremities has diminished.)
Neurological: Awake and Alert
Psychological: Calm
Objective Data
Lab Data
Lab Results
07/17/24 06:04
07/17/24 06:04
ESR Cancelled 07/17/24 10:07
PT 20.4 Sec (11.4-14.6) H 07/17/24 06:04
INR 1.72 07/17/24 06:04
Estimated Creat Clear 37 ml/min 07/17/24 06:04
Total Bilirubin 0.6 mg/dl (0.2-1.3) 07/17/24 06:04
AST 29 U/L (17-59) 07/17/24 06:04
ALT 16 U/L (0-50) 07/17/24 06:04
Alkaline Phosphatase 100 U/L (38-126) 07/17/24 06:04
Most recent labs reviewed.
[2024-07-17 15:30] VITALS: BP 138/80
[2024-07-17] MEDS: LASIX 80 MG PO (15:34)
[2024-07-17 16:18] LABS: Iron 58 ug/dl (49-181)
[2024-07-17 16:27] LABS: Percent Saturation 19 % (20-50); Total Iron Binding Capacity 296 ug/dl (261-462)
[2024-07-17 16:30] LABS: Glucose - Point of Care 362 mg/dl (70-99)
[2024-07-17] MEDS: NOVOLOG FLEXPEN-LOW RESISTANCE SC (17:32)
[2024-07-17] MEDS: COUMADIN 3 MG PO (17:46)
[2024-07-17] MEDS: NOVOLOG FLEXPEN-MODERATE RESISTANCE 9 UNITS SC (17:50)
[2024-07-17 19:16] LABS: LDH 317 U/L (120-246)
[2024-07-17 19:30] VITALS: BP 144/72
[2024-07-17 19:36] LABS: Ferritin 86.7 ng/ml (17.9-464.0)
[2024-07-17] MEDS: LIPITOR 20 MG PO (21:09)
[2024-07-17] MEDS: MELATONIN 5 MG PO (21:09)
[2024-07-17] MEDS: DESENEX/MITRAZOL/ZEASORB 1 APPLIC TOPICAL (21:12)
[2024-07-17 21:36] LABS: Glucose - Point of Care 315 mg/dl (70-99)
[2024-07-17 23:52] VITALS: BP 138/85
[2024-07-18 03:30] VITALS: BP 132/79
[2024-07-18] MEDS: BENADRYL 25 MG IV (05:40)
[2024-07-18] MEDS: TYLENOL 650 MG PO ×2 (05:43→20:50)
[2024-07-18 06:00] VITALS: BMI 40.7
[2024-07-18 07:20] VITALS: BP 141/75
[2024-07-18] MEDS: SYMBICORT 160/4.5 MCG INHALER 2 PUFF INH ×2 (07:42→19:43)
[2024-07-18 08:02] LABS: Glucose - Point of Care 171 mg/dl (70-99)
[2024-07-18 09:24] LABS: % Basophils 0.8 % (0-2); % Eosinophils 13.4 % (0-6); % Immature Granulocytes 1.1 % (0-0.5); % Monocytes 13.2 % (1.7-9.3); % Neutrophils 61.5 % (42.2-75.2); Absolute Basophils 0.1 10^3/uL (0-0.2); Absolute Eosinophils 1.5 10^3/uL (0-0.7); Absolute Immature Granulocytes 0.1 10^3/uL (0-0.05); Absolute Lymphocytes 1.1 10^3/uL (1.2-3.4); Absolute Monocytes 1.5 10^3/uL (0.1-0.6); Hematocrit 24.3 % (39.0-52.0); Mean Corp Hgb Conc. 32.9 g/dL (33.0-37.0); Mean Corpuscular Hgb 27.7 pg (27.0-31.0); Mean Corpuscular Volume 84.1 fL (80.0-94.0); Mean Platelet Volume 9.4 fL (7.4-10.4); Nucleated Red Blood Cells % 0 % (-); Platelet Count 219 10^3/uL (130-400); Red Blood Cell Count 2.89 10^6/uL (4.70-6.10); Red Cell Dist. Width 16.5 % (11.5-14.5); White Blood Cell Count 11.4 10^3/uL (4.8-10.8)
[2024-07-18 09:35] LABS: INR 1.77; PT 20.8 Sec (11.4-14.6)
[2024-07-18 09:53] LABS: ALT (SGPT) 16 U/L (0-50); AST (SGOT) 24 U/L (17-59); Albumin 2.8 g/dl (3.5-5.0); Alkaline Phosphatase 105 U/L (38-126); Blood Urea Nitrogen 63 mg/dl (9-20); Calcium 8.2 mg/dl (8.4-10.2); Carbon Dioxide 28 mmol/L (22-30); Chloride 98 mmol/L (98-107); Estimated Creatinine Clearance 48 ml/min; Glucose 167 mg/dl (70-99); Potassium 3.4 mmol/L (3.5-5.1); Sodium 135 mmol/L (135-145); Total Bilirubin 0.5 mg/dl (0.2-1.3); Total Protein 5.9 g/dl (6.3-8.2); eGFR 41.26
[2024-07-18] MEDS: NOVOLOG FLEXPEN-MODERATE RESISTANCE SC (11:12)
[2024-07-18 11:30] VITALS: BP 127/66
--- NOTE | 2024-07-18 11:41 | W.PN.NEPH.HD ---
Assessment
-
Seen on HD. no complaints. VSS, access ok
recommend skin biopsy
continue lasix
Progress Note - Hemodialysis
-
Date of Service: July 18, 2024
Duration: 3 hours
Opti-Dialyzer: 160
Ultrafiltration: Other (4)
Blood Flow: 250
Heparin: 0
EPO: 0
[2024-07-18] MEDS: HEPARIN 3900 UNITS INTRACATH (11:46)
[2024-07-18 12:17] LABS: Glucose - Point of Care 165 mg/dl (70-99)
[2024-07-18] MEDS: DESENEX/MITRAZOL/ZEASORB 1 APPLIC TOPICAL ×2 (12:23→20:54)
[2024-07-18] MEDS: NOVOLOG FLEXPEN-MODERATE RESISTANCE 1 UNITS SC (12:24)
[2024-07-18] MEDS: PROTONIX 40 MG PO ×2 (12:24→20:51)
[2024-07-18] MEDS: TOPROL XL 50 MG PO ×2 (12:25→20:51)
[2024-07-18] MEDS: LASIX 80 MG PO ×2 (12:25→15:28)
[2024-07-18] MEDS: KCL ELIXIR 40 MEQ PO (12:25)
--- NOTE | 2024-07-18 12:32 | W.PN.ONC ---
Today's Communication / Plan
-
As per the patient, his skin rash is improving. The eosinophilia has returned, following its disappearance with just 1 dose of dexamethasone. Ideally, he should have a skin biopsy. If this is not feasible, a short course of steroids to treat the
rash could be considered, although it does seem to be improving on its own. I would not let the eosinophilia drive any of these decisions.
Impression
Impression
Asthma
Acute renal failure, on dialysis, improving
Multifactorial anemia: recent UGIB, question of baseline iron deficiency with low MCV and elevated platelets at initial presentation, renal insufficiency, inflammatory state
Rash, improving
Eosinophilia, new this admission
PAF on coumadin
Recent hemorrhagic shock due to GIB on Eliquis, reversed with KCentra
Back pain with possible L2/L3 discitis, s/p course of IV meropenem completed 07/06/24
Stage II pressure ulcer
Chronic bilateral lower extremity lymphedema limiting functional mobility
Plan
Plan
Needs biopsy of rash.
The rash does not have the appearance of vasculitis to me.
Etiology of renal failure unclear, he is not amenable to kidney biopsy
Anemia workup ordered, although the renal insufficiency and inflammatory state alone are cause enough for anemia.
Consider outpt MARILYN, we can administer if he goes off dialysis.
Eosinophilia was not present upon admission so I am not suspicious of an underlying primary blood dyscrasia. Suspect the eosinophilia is part of an allergic reaction.
Thank you for consult, will follow along with you.
Subjective/Objective
Subjective/Objective
He says he is feeling reasonably well. The rash itches minimally. He says it is much less red. Examination is otherwise unchanged.
Vital Signs:
Vital Signs
Temp Pulse Resp BP Pulse Ox
97.3 F 100 18 142/80 92
07/18/24 07:20 07/18/24 12:25 07/18/24 07:44 07/18/24 12:25 07/18/24 07:44
Lab Results:
Laboratory Data
WBC 11.4 10^3/uL (4.8-10.8) H 07/18/24 07:44
Hgb 8.0 g/dL (13.0-18.0) L 07/18/24 07:44
Plt Count 219 10^3/uL (130-400) 07/18/24 07:44
PT 20.8 Sec (11.4-14.6) H 07/18/24 07:44
INR 1.77 07/18/24 07:44
eGFR 41.26 07/18/24 07:44
--- NOTE | 2024-07-18 12:37 | W.PN.HOSP.TC ---
Today's Communication/Plan
-
SNF placement pending
Appreciate hematology
Topical steroids
Assessment / Plan
Assessment / Plan
Physical Exam
General: Well Developed, Well Nourished and No Apparent Distress
HEENT: Normocephalic, Moist mucous membranes and Atraumatic
Respiratory: Clear
Cardiac: S1/S2 and Regular Rhythm; No Murmur or Rub
GI: Soft, Non Tender, Non Distended and Normal Bowel Sounds;
Musculoskeletal: No Cyanosis and No Edema
Skin: Rash and Other (Bilateral lower extremities chronic)
Neuro: AO x 3 and Nonfocal/grossly intact
Psych: Calm
Assessment/Plan
# Diffuse drug eruption , seemed mostly morbilliform type
Now recovering with some dryness and peeling noted. Skin moisturizing cream can help.
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 No other organs involvement as normal liver function test
Received IV steroids this hospitalization
Possible related to IV Abx use, off ABx now
PRN Benadryl
Might take up to 2-3 weeks to complete resolution
Consulted hematology given eosinophilia in the setting of rash
Will need outpatient dermatology/allergy/immunology
Spoke on July 18, 2024 with outpatient dermatology who recommended trying topical steroids (like Clobetasol 0.05%) instead of systemic steroids and patient to call their office at [phone]
# Anemia of chronic disease
- No active bleed
- Continue to monitor chronic kidney disease stage IIIb
- Continued to monitor
# Hyponatremia
#End-stage renal disease
- On dialysis Wednesday
- Nephrology consulted -- PROBABLY NO MORE NEED FOR DIALYSIS as per my communication today July 18, 2024 with nephrology
#Paroxysmal atrial fibrillation
-Continue rate control with metoprolol succinate 50 mg p.o. twice daily
-Coumadin continued
-Daily PT/INR
-Recent echo showed LVEF 65 to 70%, trace TR, biatrial dilatation, mild MR.
# Recent hemorrhagic shock secondary to GI bleeding/hematemesis leading to acute blood loss anemia associated with Eliquis, likely upper GI bleeding from history
#Coagulopathy s/p Kcentra
-Resolved. Patient received a total of 5 units of PRBCs. Received reversal agents in ER. HGB stabilized.
-Continue Protonix 40 mg p.o. BID
# chronic low back pain.
- Tylenol continued
- Lidocaine patch
# Possible L2/L3 discitis
- Previous the course of IV meropenem on 07/06/2024
#Type 2 Diabetes Mellitus
-Sliding scale insulin as needed and it is very low dose needed
# Hyperlipidemia
-Statin continued
#Morbid Obesity
#History of stage II pressure coccygeal area injury
# Chronic history of bilateral lower extremity lymphedema
# History of alcohol use. No history of recent alcohol intake
#History of asthma
#History of restrictive lung disease
- Nebs from home continued
# Significant BLE lymphedema
-Continue wound care and compression
Code Status: Full Code
DVT Prophylaxis: Anticoagulation with warfarin
Anticipated Discharge: Within 24 hours
Subjective/Interval History
-
Date of Service: July 18, 2024
Patient was seen and examined. He was getting dialysis at the time he was seen, denied any new symptoms or complaints, rash is the same or better.
Objective Data
-
Labs:
Laboratory Results
07/18/24
07:44
WBC 11.4 H
Hgb 8.0 L
Hct 24.3 L
Plt Count 219
PT 20.8 H
INR 1.77
Sodium 135
Potassium 3.4 L
Chloride 98
Carbon Dioxide 28
BUN 63 H
Creatinine 1.7 H
Glucose 167 H
Calcium 8.2 L
Total Bilirubin 0.5
AST 24
ALT 16
Alkaline Phosphatase 105
Vital Signs:
Vital Signs
Temp Pulse Resp BP Pulse Ox
97.3 F 100 18 142/80 92
07/18/24 07:20 07/18/24 12:25 07/18/24 07:44 07/18/24 12:25 07/18/24 07:44
I&O
07/17/24 07/18/24 07/19/24
06:59 06:59 06:59
Intake Total 2640 / 2640 300 / 300
Output Total 850 / 850 1800 / 1800
Balance 1790 / 1790 -1500 / -1500
--- NOTE | 2024-07-18 13:52 | W.PN.ID1 ---
Date of Service
Date of Service: July 18, 2024
Today's Communication
Observe off antibiotics.
Assessment / Plan
Rash
Eosinophilia
Leukocytosis
Bilateral lower extremity lymphedema
Venous insufficiency lower extremities bilateral
Diabetes mellitus
Asthma
Afib (on eliquis)
Dyslipidemia
Hypertension
Class III obesity BMI 42
Recommendations:
Would continue off antibiotics.
Continue with ernie wraps to the lower extremities.
No objection to systemic steroids for potential drug rash.
Evaluation by Allergy/Immunology in the outpatient setting.
Chief Complaint
-: Other (Rash)
Subjective / Review of Systems
Review of Systems: No Fever
Vital Signs / Physical Exam
Vital Signs
Vital Signs
Temp Pulse Resp BP Pulse Ox
97.7 F 100 18 142/80 97
07/18/24 11:30 07/18/24 12:25 07/18/24 11:30 07/18/24 12:25 07/18/24 11:30
Physical Exam
Constitutional: No Acute Distress, Comfortable, Chronically Ill and Non-toxic
Eyes: Sclera Anicteric
Pulmonary: Non Labored; Negative Wheezes
Gastrointestinal: Non Distended
Skin: Rash (Erythematous rash on upper extremities stable and without significant change.)
Neurological: Awake and Alert
Psychological: Calm
Objective Data
Lab Data
Lab Results
07/18/24 07:44
07/18/24 07:44
ESR Cancelled 07/17/24 10:07
PT 20.8 Sec (11.4-14.6) H 07/18/24 07:44
INR 1.77 07/18/24 07:44
Estimated Creat Clear 48 ml/min 07/18/24 07:44
Total Bilirubin 0.5 mg/dl (0.2-1.3) 07/18/24 07:44
AST 24 U/L (17-59) 07/18/24 07:44
ALT 16 U/L (0-50) 07/18/24 07:44
Alkaline Phosphatase 105 U/L (38-126) 07/18/24 07:44
Most recent labs reviewed.
[2024-07-18 13:57] LABS: Erythropoietin (EPO) 170 mU/mL (4-27)
[2024-07-18 14:39] VITALS: BP 119/64; PULSE 94; O2SAT 98
[2024-07-18] MEDS: CLOBETASOL PROPIONATE 0.05% CREAM 1 APPLIC TOPICAL ×2 (15:23→20:49)
[2024-07-18 17:09] LABS: Glucose - Point of Care 308 mg/dl (70-99)
--- NOTE | 2024-07-18 17:12 | CM ---
CM following for discharge to SNF - pt requests return to [facility]. Referral sent via [facility] and will be accepted for return pending authorization.
[facility]
SNF request called to [facility], [place] Garnica Pending Case # [id number]; per [place], authorization could take up to 15 days.
Records faxed to [facility] [phone]
CM to follow for SNF authorization; will coordinate transfer to SNF once authorization obtained.
[facility] Report: [phone]
[facility] Fax: [phone]
[2024-07-18] MEDS: COUMADIN 3 MG PO (17:23)
[2024-07-18] MEDS: NOVOLOG FLEXPEN-MODERATE RESISTANCE 7 UNITS SC (17:24)
[2024-07-18] MEDS: LIPITOR 20 MG PO (20:51)
[2024-07-18] MEDS: MELATONIN 5 MG PO (20:51)
[2024-07-18 21:49] LABS: Glucose - Point of Care 271 mg/dl (70-99)
[2024-07-18 23:00] VITALS: BP 119/64
[2024-07-18 23:18] LABS: Haptoglobin 242 mg/dL (30-200)
--- NOTE | 2024-07-19 00:12 | PTCARENOTE ---
Oral care was not performed on patient because he refused.
[2024-07-19 06:00] VITALS: BMI 39.4
[2024-07-19 07:20] LABS: Myeloperoxidase Antibody 0 AU/mL (0-19); Serine Protease-3, IgG 1 AU/mL (0-19)
[2024-07-19] MEDS: SYMBICORT 160/4.5 MCG INHALER 2 PUFF INH ×2 (07:56→19:37)
[2024-07-19 07:57] LABS: Glucose - Point of Care 169 mg/dl (70-99)
[2024-07-19 08:02] LABS: Hematocrit 24.6 % (39.0-52.0); Hemoglobin 8.2 g/dL (13.0-18.0); Mean Corp Hgb Conc. 33.3 g/dL (33.0-37.0); Mean Corpuscular Hgb 27.8 pg (27.0-31.0); Mean Corpuscular Volume 83.4 fL (80.0-94.0); Mean Platelet Volume 9.7 fL (7.4-10.4); Platelet Count 231 10^3/uL (130-400); Red Blood Cell Count 2.95 10^6/uL (4.70-6.10); Red Cell Dist. Width 16.9 % (11.5-14.5); White Blood Cell Count 11.6 10^3/uL (4.8-10.8)
[2024-07-19 08:06] VITALS: BP 118/69
[2024-07-19] MEDS: LASIX 80 MG PO ×2 (08:08→16:29)
[2024-07-19] MEDS: CLOBETASOL PROPIONATE 0.05% CREAM 1 APPLIC TOPICAL ×2 (08:09→21:04)
[2024-07-19] MEDS: PROTONIX 40 MG PO ×2 (08:09→21:05)
[2024-07-19] MEDS: TOPROL XL 50 MG PO ×2 (08:09→21:10)
[2024-07-19] MEDS: DESENEX/MITRAZOL/ZEASORB 1 APPLIC TOPICAL ×2 (08:10→21:05)
[2024-07-19 08:11] LABS: INR 1.78; PT 21.2 Sec (11.4-14.6)
[2024-07-19] MEDS: NOVOLOG FLEXPEN-MODERATE RESISTANCE 1 UNITS SC (08:12)
[2024-07-19 08:37] LABS: ALT (SGPT) 20 U/L (0-50); AST (SGOT) 22 U/L (17-59); Albumin 2.6 g/dl (3.5-5.0); Alkaline Phosphatase 106 U/L (38-126); Blood Urea Nitrogen 67 mg/dl (9-20); Calcium 8.2 mg/dl (8.4-10.2); Carbon Dioxide 27 mmol/L (22-30); Chloride 98 mmol/L (98-107); Estimated Creatinine Clearance 47 ml/min; Glucose 162 mg/dl (70-99); Potassium 4.4 mmol/L (3.5-5.1); Sodium 134 mmol/L (135-145); Total Bilirubin 0.6 mg/dl (0.2-1.3); Total Protein 5.6 g/dl (6.3-8.2); eGFR 41.26
[2024-07-19 08:39] LABS: % Basophils 0.8 % (0-2); % Eosinophils 21.4 % (0-6); % Immature Granulocytes 1.2 % (0-0.5); % Lymphocytes 10.3 % (20.5-51.1); % Monocytes 13.5 % (1.7-9.3); % Neutrophils 52.8 % (42.2-75.2); Absolute Basophils 0.1 10^3/uL (0-0.2); Absolute Eosinophils 2.5 10^3/uL (0-0.7); Absolute Immature Granulocytes 0.1 10^3/uL (0-0.05); Absolute Lymphocytes 1.2 10^3/uL (1.2-3.4); Absolute Monocytes 1.6 10^3/uL (0.1-0.6); Absolute Neutrophils 6.1 10^3/uL (1.4-6.5); Nucleated Red Blood Cells % 0 % (-)
--- NOTE | 2024-07-19 09:35 | W.PN.ID1 ---
Date of Service
Date of Service: July 19, 2024
Today's Communication
Observe off antibiotics.
Assessment / Plan
Rash
Eosinophilia
Leukocytosis
Bilateral lower extremity lymphedema
Venous insufficiency lower extremities bilateral
Diabetes mellitus
Asthma
Afib (on eliquis)
Dyslipidemia
Hypertension
Class III obesity BMI 42
Recommendations:
Monitor off antibiotics.
Continue with ernie wraps to the lower extremities.
Evaluation by Allergy/Immunology in the outpatient setting.
����������������������������������������������������������
Chief Complaint
-: Other (Rash)
Subjective / Review of Systems
Review of Systems: No Fever and No Chills
Vital Signs / Physical Exam
Vital Signs
Vital Signs
Temp Pulse Resp BP Pulse Ox
98.6 F 103 19 118/69 95
07/19/24 08:06 07/19/24 08:09 07/19/24 08:06 07/19/24 08:09 07/19/24 08:06
Physical Exam
Constitutional: No Acute Distress, Comfortable, Chronically Ill and Non-toxic
Eyes: Sclera Anicteric
Pulmonary: Non Labored
Gastrointestinal: Non Distended
Skin: Rash (Erythematous rash on upper extremities somewhat improved today.)
Neurological: Awake and Alert
Psychological: Calm
Objective Data
Lab Data
Lab Results
07/19/24 07:30
07/19/24 07:30
ESR Cancelled 07/17/24 10:07
PT 21.2 Sec (11.4-14.6) H 07/19/24 07:30
INR 1.78 07/19/24 07:30
Estimated Creat Clear 47 ml/min 07/19/24 07:30
Total Bilirubin 0.6 mg/dl (0.2-1.3) 07/19/24 07:30
AST 22 U/L (17-59) 07/19/24 07:30
ALT 20 U/L (0-50) 07/19/24 07:30
Alkaline Phosphatase 106 U/L (38-126) 07/19/24 07:30
Most recent labs reviewed.
[2024-07-19 12:10] LABS: Glucose - Point of Care 223 mg/dl (70-99)
--- NOTE | 2024-07-19 12:12 | CM ---
CM following to coordinate transfer to [facility] [place]; all paperwork submitted to [facility] and reference number for pending auth is # [id number].
Await insurance review for transfer to [facility] [place]. CM will coordinate transport once authorization obtained.
--- NOTE | 2024-07-19 12:17 | W.PN.NEPH.PH ---
Today's Communication / Plan
-
Remove permacath
Assessment/Plan
-
Impression:
Acute kidney injury with dialysis dependency with improved GFR/outpatient schedule Wednesday
Anemia of chronic disease
Diffuse chronic rash worsening on his hands and arms with significant swelling over the last 2 days
History of recently diagnosed atrial fibrillation on Eliquis
Acute renal failure
History of discitis completed antibiotics meropenem on July 06
History of alcohol use
Chronic lymphedema
macular rash
Plan:
48-hour creatinine clearance was around 24 mL/min
Lasix 80 mg twice daily po
Potential skin biopsy
Creatinine 1 7 with EGFR of 47.
Discussed with the patient and his that we will remove his permacath
At this time no indication to continue dialysis
-
-
Date of Service: July 19, 2024
CC / HPI / ROS
-
Chief Complaint:
Diffuse rash upper extremities and swelling
History of Present Illness:
Acute kidney injury dialysis dependent improving renal function presents with significant rash on his arms and swelling improved with steroids
Review of Systems:.
No chest pain or shortness of breath
Labs
-
Labs:
WBC 11.6 10^3/uL (4.8-10.8) H 07/19/24 07:30
RBC 2.95 10^6/uL (4.70-6.10) L 07/19/24 07:30
Hgb 8.2 g/dL (13.0-18.0) L 07/19/24 07:30
Hct 24.6 % (39.0-52.0) L 07/19/24 07:30
Plt Count 231 10^3/uL (130-400) 07/19/24 07:30
Sodium 134 mmol/L (135-145) L 07/19/24 07:30
Potassium 4.4 mmol/L (3.5-5.1) D 07/19/24 07:30
Chloride 98 mmol/L (98-107) 07/19/24 07:30
Carbon Dioxide 27 mmol/L (22-30) 07/19/24 07:30
BUN 67 mg/dl (9-20) H 07/19/24 07:30
Creatinine 1.7 mg/dL (0.7-1.3) H 07/19/24 07:30
eGFR 41.26 07/19/24 07:30
Glucose 162 mg/dl (70-99) H 07/19/24 07:30
Calcium 8.2 mg/dl (8.4-10.2) L 07/19/24 07:30
Albumin 2.6 g/dl (3.5-5.0) L 07/19/24 07:30
Physical Exam
-
Vital Signs:
Vital Signs
Temp Pulse Resp BP Pulse Ox
98.6 F 103 19 118/69 95
07/19/24 08:06 07/19/24 08:09 07/19/24 08:06 07/19/24 08:09 07/19/24 08:06
Lung Excursion:: Normal
Abdomen:: Soft
Bowel Sounds:: Normal
Extremity Edema:: +2: Bilateral:
Abraham Catheter: No
[2024-07-19] MEDS: NOVOLOG FLEXPEN-MODERATE RESISTANCE 3 UNITS SC (12:28)
[2024-07-19 13:47] VITALS: BP 125/59; PULSE 97; O2SAT 98
--- NOTE | 2024-07-19 14:12 | PTCARENOTE ---
[facility] requesting patient down to get IJ taken out, this RN went to go tell patient and the patient asked if he was able to do this tomorrow stating 'im exhausted and light headed, can they take it out tomorrow?' This RN asked [facility] nurse who said yes
no problem. Pt will get IJ taken out tomorrow.
[2024-07-19 15:30] VITALS: BP 113/62
[2024-07-19 16:06] VITALS: BP 113/62
--- NOTE | 2024-07-19 16:12 | VNURNOTE ---
Home Health Liaison met with patient and spouse at bedside to discuss [facility] nurse/therapy, visits, schedule and homebound status. Patient is agreeable and understands that visits at home will be 2-3 x per week to assess and teach medical and wound
management.
[facility] contact information provided. Patient is aware that [facility] will contact them for start of care in 1-2 days after discharge from .
[facility] referral completed in [facility].
--- NOTE | 2024-07-19 16:42 | W.PN.HOSP.TC ---
Today's Communication/Plan
-
Auth Pending
Assessment / Plan
Assessment / Plan
Physical Exam
General: Well Developed, Well Nourished and No Apparent Distress
HEENT: Normocephalic, Moist mucous membranes and Atraumatic
Respiratory: Clear
Cardiac: S1/S2 and Regular Rhythm; No Murmur or Rub
GI: Soft, Non Tender, Non Distended and Normal Bowel Sounds;
Musculoskeletal: No Cyanosis and No Edema
Skin: Rash and Other (Bilateral lower extremities chronic)
Neuro: AO x 3 and Nonfocal/grossly intact
Psych: Calm
Assessment/Plan
# Diffuse drug eruption , seemed mostly morbilliform type
Now recovering with some dryness and peeling noted. Skin moisturizing cream can help.
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 No other organs involvement as normal liver function test
Received IV steroids this hospitalization
Possible related to IV Abx use, off ABx now
PRN Benadryl
Might take up to 2-3 weeks to complete resolution
Consulted hematology given eosinophilia in the setting of rash
Will need outpatient dermatology/allergy/immunology
Spoke on July 18, 2024 with outpatient dermatology who recommended trying topical steroids (like Clobetasol 0.05%) instead of systemic steroids and patient to call their office at [phone]
Continue topical steroids
# Anemia of chronic disease
- No active bleed
- Continue to monitor chronic kidney disease stage IIIb
- Continued to monitor
# Hyponatremia
# Acute kidney injury with dialysis dependency with improved GFR/outpatient schedule Wednesday
- On dialysis Wednesday -- now no more indication to continue dialysis, as per nephrology
- Nephrology consulted
- Continue Lasix 80 mg twice daily P.O.
#Paroxysmal atrial fibrillation
-Continue rate control with metoprolol succinate 50 mg p.o. twice daily
-Coumadin continued
-Daily PT/INR
-Recent echo showed LVEF 65 to 70%, trace TR, biatrial dilatation, mild MR.
# Recent hemorrhagic shock secondary to GI bleeding/hematemesis leading to acute blood loss anemia associated with Eliquis, likely upper GI bleeding from history
#Coagulopathy s/p Kcentra
-Resolved. Patient received a total of 5 units of PRBCs. Received reversal agents in ER. HGB stabilized.
-Continue Protonix 40 mg p.o. BID
# chronic low back pain.
- Tylenol continued
- Lidocaine patch
# Possible L2/L3 discitis
- Previous the course of IV meropenem on 07/06/2024
#Type 2 Diabetes Mellitus
-Sliding scale insulin as needed and it is very low dose needed
# Hyperlipidemia
-Statin continued
#Morbid Obesity
#History of stage II pressure coccygeal area injury
# Chronic history of bilateral lower extremity lymphedema
# History of alcohol use. No history of recent alcohol intake
#History of asthma
#History of restrictive lung disease
- Nebs from home continued
# Significant BLE lymphedema
-Continue wound care and compression
Code Status: Full Code
DVT Prophylaxis: Anticoagulation with warfarin
Anticipated Discharge: Within 24 hours
Subjective/Interval History
-
Date of Service: July 19, 2024
Patient was seen and examined. He denied any complaints.
Objective Data
-
Labs:
Laboratory Results
07/19/24
07:30
WBC 11.6 H
Hgb 8.2 L
Hct 24.6 L
Plt Count 231
PT 21.2 H
INR 1.78
Sodium 134 L
Potassium 4.4 D
Chloride 98
Carbon Dioxide 27
BUN 67 H
Creatinine 1.7 H
Glucose 162 H
Calcium 8.2 L
Total Bilirubin 0.6
AST 22
ALT 20
Alkaline Phosphatase 106
Vital Signs:
Vital Signs
Temp Pulse Resp BP Pulse Ox
97.9 F 100 16 113/62 99
07/19/24 15:30 07/19/24 16:29 07/19/24 15:30 07/19/24 16:29 07/19/24 15:30
I&O
07/18/24 07/19/24 07/20/24
06:59 06:59 06:59
Intake Total 300 / 300 720 / 720
Output Total 1800 / 1800 1175 / 1175
Balance -1500 / -1500 -455 / -455
[2024-07-19 17:00] LABS: Glucose - Point of Care 366 mg/dl (70-99)
[2024-07-19] MEDS: NOVOLOG FLEXPEN-MODERATE RESISTANCE 9 UNITS SC (17:15)
[2024-07-19] MEDS: COUMADIN 3 MG PO (17:16)
[2024-07-19 21:10] VITALS: BP 137/62
[2024-07-19] MEDS: TYLENOL 650 MG PO (21:11)
[2024-07-19 21:15] LABS: Glucose - Point of Care 238 mg/dl (70-99)
[2024-07-19 23:00] VITALS: BP 126/62
[2024-07-19] MEDS: LIPITOR 20 MG PO (23:16)
[2024-07-19] MEDS: MELATONIN 5 MG PO (23:17)
[2024-07-20] VITALS (7 sets, daily range): BP systolic 117–147; BP diastolic 57–76; BMI 39.3
--- NOTE | 2024-07-20 00:48 | PTCARENOTE ---
Oral care was not performed on patient because he refused.
[2024-07-20 07:28] LABS: Glucose - Point of Care 157 mg/dl (70-99)
[2024-07-20 07:37] LABS: INR 1.59; PT 19.4 Sec (11.4-14.6)
[2024-07-20] MEDS: SYMBICORT 160/4.5 MCG INHALER 2 PUFF INH ×2 (07:46→19:43)
[2024-07-20] MEDS: LASIX 80 MG PO ×2 (08:40→16:16)
[2024-07-20] MEDS: PROTONIX 40 MG PO ×2 (08:41→21:20)
[2024-07-20] MEDS: CLOBETASOL PROPIONATE 0.05% CREAM 1 APPLIC TOPICAL ×2 (08:41→21:19)
[2024-07-20] MEDS: TOPROL XL 50 MG PO ×2 (08:41→21:20)
[2024-07-20] MEDS: DESENEX/MITRAZOL/ZEASORB 1 APPLIC TOPICAL ×2 (08:41→21:20)
[2024-07-20] MEDS: NOVOLOG FLEXPEN-MODERATE RESISTANCE 1 UNITS SC (08:41)
--- NOTE | 2024-07-20 10:37 | PN.IRAD.UPD ---
Update Note - [facility]
- -
Cleaned right sided Tunn HD with chloraprep and removed catheter. Site dressed with gauze and a primapore.
Art Jones RT(R)()
[2024-07-20 11:50] LABS: Glucose - Point of Care 216 mg/dl (70-99)
--- NOTE | 2024-07-20 12:35 | W.PN.ID1 ---
Date of Service
Date of Service: July 20, 2024
Today's Communication
Continue off abx
Assessment / Plan
Rash
Eosinophilia
Leukocytosis
Bilateral lower extremity lymphedema
Venous insufficiency lower extremities bilateral
Diabetes mellitus
Asthma
Afib (on eliquis)
Dyslipidemia
Hypertension
Class III obesity BMI 42
Recommendations:
Monitor off antibiotics.
����������������������������������������������������������
Chief Complaint
-: Other (Rash)
Subjective / Review of Systems
Review of Systems: No Fever and No Chills
Vital Signs / Physical Exam
Vital Signs
Vital Signs
Temp Pulse Resp BP Pulse Ox
98.0 F 82 16 120/68 95
07/20/24 07:05 07/20/24 07:50 07/20/24 07:50 07/20/24 10:48 07/20/24 07:50
Physical Exam
Constitutional: No Acute Distress, Comfortable, Chronically Ill and Non-toxic
Eyes: Sclera Anicteric
Pulmonary: Non Labored
Gastrointestinal: Non Distended
Skin: Rash (decreased erythematous rash on upper extremities.)
Neurological: Awake and Alert
Psychological: Calm
Objective Data
Lab Data
Lab Results
07/19/24 07:30
07/19/24 07:30
ESR Cancelled 07/17/24 10:07
PT 19.4 Sec (11.4-14.6) H 07/20/24 07:14
INR 1.59 07/20/24 07:14
Estimated Creat Clear 47 ml/min 07/19/24 07:30
Total Bilirubin 0.6 mg/dl (0.2-1.3) 07/19/24 07:30
AST 22 U/L (17-59) 07/19/24 07:30
ALT 20 U/L (0-50) 07/19/24 07:30
Alkaline Phosphatase 106 U/L (38-126) 07/19/24 07:30
Most recent labs reviewed.
--- NOTE | 2024-07-20 12:39 | W.PN.HOSP.TC ---
Today's Communication/Plan
-
Discharge today
Assessment / Plan
Assessment / Plan
Physical Exam
General: Well Developed, Well Nourished and No Apparent Distress
HEENT: Normocephalic, Moist mucous membranes and Atraumatic
Respiratory: Clear
Cardiac: S1/S2 and Regular Rhythm; No Murmur or Rub
GI: Soft, Non Tender, Non Distended and Normal Bowel Sounds;
Musculoskeletal: No Cyanosis and No Edema
Skin: Rash and Other (Bilateral lower extremities chronic)
Neuro: AO x 3 and Nonfocal/grossly intact
Psych: Calm
Assessment/Plan
# Diffuse drug eruption , seemed mostly morbilliform type
# Recent Exposure to Meropenem, Ertapenem, Cefepime, Levofloxacin
Now recovering with some dryness and peeling noted. Skin moisturizing cream can help.
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 No other organs involvement as normal liver function test
Received IV steroids this hospitalization
Possible related to IV Abx use, off ABx now
PRN Benadryl
Might take up to 2-3 weeks to complete resolution
Consulted hematology given eosinophilia in the setting of rash
Will need outpatient dermatology/allergy (Dr. Vaishnavi Garcia)/immunology -- Dr. Vaishnavi Garcia said that patient will not be tested on the first appointment
Spoke on July 18, 2024 with outpatient dermatology (Dr. Lukas Maradiaga) who recommended trying topical steroids (like Clobetasol 0.05%) instead of systemic steroids and patient to call their office at [phone]
Continue topical steroids -- Clobetasol Propionate 0.05% Cream, BID for 2 to 4 weeks avoiding the face, groin, and genitalia
# Anemia of chronic disease
- No active bleed
- Continue to monitor chronic kidney disease stage IIIb
- Continued to monitor
# Hyponatremia
# Acute kidney injury with dialysis dependency with improved GFR/outpatient schedule Wednesday
- On dialysis Wednesday -- now no more indication to continue dialysis, as per nephrology
- Nephrology consulted
- Continue Lasix 80 mg twice daily P.O.
#Paroxysmal atrial fibrillation
-Continue rate control with metoprolol succinate 50 mg p.o. twice daily
-Coumadin continued -- dose increased due to subtherapeutic INR -- given INR failing to rise enough, will do 5 mg tonight followed by 3 mg with follow up INR in a few days
-Monitor PT/INR
-Recent echo showed LVEF 65 to 70%, trace TR, biatrial dilatation, mild MR.
# Recent hemorrhagic shock secondary to GI bleeding/hematemesis leading to acute blood loss anemia associated with Eliquis, likely upper GI bleeding from history
#Coagulopathy s/p Kcentra
-Resolved. Patient received a total of 5 units of PRBCs. Received reversal agents in ER. HGB stabilized.
-Continue Protonix 40 mg p.o. BID
# chronic low back pain.
- Tylenol continued
- Lidocaine patch
# Possible L2/L3 discitis
- Previous the course of IV meropenem on 07/06/2024
#Type 2 Diabetes Mellitus
-Sliding scale insulin as needed and it is very low dose needed
-Diabetic Diet
# Hyperlipidemia
-Statin continued
#Morbid Obesity
#History of stage II pressure coccygeal area injury
-Consulted wound care
-Follow-up with Dr. Kb Reich
# Chronic history of bilateral lower extremity lymphedema
# History of alcohol use. No history of recent alcohol intake
#History of asthma
#History of restrictive lung disease
- Nebs from home continued
# Significant BLE lymphedema
-Continue wound care and compression
Code Status: Full Code
DVT Prophylaxis: Anticoagulation with warfarin
More than 30 minutes spent in discharge including
Final examination of the patient
Summarizing hospital stay
Instructions for continuing care to all relevant caregivers
Preparation of discharge records, prescriptions, and referral forms
Total time spent (in minutes): 37
Anticipated Discharge: Today
Subjective/Interval History
-
Date of Service: July 20, 2024
Patient was seen and examined. He denied any new symptoms or complaints.
Objective Data
-
Labs:
Laboratory Results
07/20/24
07:14
PT 19.4 H
INR 1.59
Vital Signs:
Vital Signs
Temp Pulse Resp BP Pulse Ox
98.0 F 82 16 120/68 95
07/20/24 07:05 07/20/24 07:50 07/20/24 07:50 07/20/24 10:48 07/20/24 07:50
I&O
07/19/24 07/20/24 07/21/24
06:59 06:59 06:59
Intake Total 720 / 720 1140 / 1140
Output Total 1175 / 1175 1175 / 1175
Balance -455 / -455 -35 / -35
--- NOTE | 2024-07-20 13:04 | CM ---
[facility]IL[facility] continues to follow for discharge planning. Kush has decided that he would prefer to go home at discharge, rather than returning to [facility]. His son will be home for the summer once done his college semester, and Kush is agreeable to
home care services. [facility] onboard for start of care when discharged.
Plan: Discharge to home with [facility].
[2024-07-20] MEDS: NOVOLOG FLEXPEN-MODERATE RESISTANCE SC (13:54)
--- NOTE | 2024-07-20 14:00 | WOUNDNOTE ---
WOC RN NOTE: Reviewed chart and met with patient. Consult for right buttock stage 2 requested by Hospitalist. Patient for discharge today and wound care orders needed. Upon assessment wound is linear, likely resulting from pressure and friction.
Patient notes slight tenderness. Wound was cleaned with saline and Honey Gel and foam dressing applied. Air cushion applied to chair. Home discharge instructions added. Plan is for home with [facility].
--- NOTE | 2024-07-20 14:15 | W.PN.NEPH.PH ---
Today's Communication / Plan
-
bmp on dc
Assessment/Plan
-
Impression:
Acute kidney injury with dialysis dependency with improved GFR/outpatient schedule Wednesday
Anemia of chronic disease
Diffuse chronic rash worsening on his hands and arms with significant swelling over the last 2 days
History of recently diagnosed atrial fibrillation on Eliquis
Acute renal failure
History of discitis completed antibiotics meropenem on July 06
History of alcohol use
Chronic lymphedema
macular rash
Plan:
48-hour creatinine clearance was around 24 mL/min
Lasix 80 mg twice daily po
Potential skin biopsy
Creatinine 1 7 with EGFR of 47.
PC removed today
ok for DC from renal standpoint with bmp 5 days
-
-
Date of Service: July 20, 2024
CC / HPI / ROS
-
Chief Complaint:
Diffuse rash upper extremities and swelling
History of Present Illness:
Acute kidney injury dialysis dependent improving renal function presents with significant rash on his arms and swelling improved with steroids
Review of Systems:.
No chest pain or shortness of breath
Labs
-
Labs:
WBC 11.6 10^3/uL (4.8-10.8) H 07/19/24 07:30
RBC 2.95 10^6/uL (4.70-6.10) L 07/19/24 07:30
Hgb 8.2 g/dL (13.0-18.0) L 07/19/24 07:30
Hct 24.6 % (39.0-52.0) L 07/19/24 07:30
Plt Count 231 10^3/uL (130-400) 07/19/24 07:30
Sodium 134 mmol/L (135-145) L 07/19/24 07:30
Potassium 4.4 mmol/L (3.5-5.1) D 07/19/24 07:30
Chloride 98 mmol/L (98-107) 07/19/24 07:30
Carbon Dioxide 27 mmol/L (22-30) 07/19/24 07:30
BUN 67 mg/dl (9-20) H 07/19/24 07:30
Creatinine 1.7 mg/dL (0.7-1.3) H 07/19/24 07:30
eGFR 41.26 07/19/24 07:30
Glucose 162 mg/dl (70-99) H 07/19/24 07:30
Calcium 8.2 mg/dl (8.4-10.2) L 07/19/24 07:30
Albumin 2.6 g/dl (3.5-5.0) L 07/19/24 07:30
Physical Exam
-
Vital Signs:
Vital Signs
Temp Pulse Resp BP Pulse Ox
98.0 F 82 16 120/68 95
07/20/24 07:05 07/20/24 07:50 07/20/24 07:50 07/20/24 10:48 07/20/24 07:50
Lung Excursion:: Normal
Abdomen:: Soft
Bowel Sounds:: Normal
Extremity Edema:: +2: Bilateral:
Abraham Catheter: No
--- NOTE | 2024-07-20 14:56 | WOUNDNOTE ---
RIGHT BUTTOCK WOUND
[2024-07-20] MEDS: COUMADIN 5 MG PO (16:16)
[2024-07-20 16:45] LABS: Glucose - Point of Care 275 mg/dl (70-99)
[2024-07-20] MEDS: NOVOLOG FLEXPEN-MODERATE RESISTANCE 5 UNITS SC (17:17)
[2024-07-20 20:54] LABS: Hematocrit 26.3 % (39.0-52.0); Hemoglobin 8.7 g/dL (13.0-18.0); Mean Corp Hgb Conc. 33.1 g/dL (33.0-37.0); Mean Corpuscular Volume 84.6 fL (80.0-94.0); Mean Platelet Volume 9.5 fL (7.4-10.4); Platelet Count 246 10^3/uL (130-400); Red Blood Cell Count 3.11 10^6/uL (4.70-6.10); Red Cell Dist. Width 16.9 % (11.5-14.5); White Blood Cell Count 9.1 10^3/uL (4.8-10.8)
[2024-07-20 21:05] LABS: Blood Urea Nitrogen 65 mg/dl (9-20); Calcium 8.2 mg/dl (8.4-10.2); Carbon Dioxide 27 mmol/L (22-30); Chloride 100 mmol/L (98-107); Estimated Creatinine Clearance 50 ml/min; Glucose 252 mg/dl (70-99); Potassium 3.9 mmol/L (3.5-5.1); Sodium 135 mmol/L (135-145); eGFR 44.38
[2024-07-20 21:21] LABS: Glucose - Point of Care 266 mg/dl (70-99)
[2024-07-20] MEDS: MELATONIN 5 MG PO (21:21)
[2024-07-20] MEDS: LIPITOR 20 MG PO (21:21)
[2024-07-20] MEDS: TYLENOL 650 MG PO (21:22)
[2024-07-21 06:00] VITALS: BMI 38.7
[2024-07-21 07:05] VITALS: BP 127/79
[2024-07-21] MEDS: SYMBICORT 160/4.5 MCG INHALER 2 PUFF INH (07:55)
[2024-07-21 08:01] LABS: Glucose - Point of Care 172 mg/dl (70-99)
[2024-07-21 08:18] LABS: INR 1.65; PT 19.7 Sec (11.4-14.6)
[2024-07-21] MEDS: LASIX 80 MG PO (08:29)
[2024-07-21] MEDS: PROTONIX 40 MG PO (08:29)
[2024-07-21] MEDS: TOPROL XL 50 MG PO (08:29)
[2024-07-21] MEDS: CLOBETASOL PROPIONATE 0.05% CREAM 1 APPLIC TOPICAL (08:30)
[2024-07-21] MEDS: NOVOLOG FLEXPEN-MODERATE RESISTANCE 1 UNITS SC (08:31)
[2024-07-21] MEDS: DESENEX/MITRAZOL/ZEASORB 1 APPLIC TOPICAL (08:31)
[2024-07-21 08:34] LABS: Blood Urea Nitrogen 59 mg/dl (9-20); Calcium 8.6 mg/dl (8.4-10.2); Carbon Dioxide 26 mmol/L (22-30); Chloride 101 mmol/L (98-107); Estimated Creatinine Clearance 50 ml/min; Glucose 148 mg/dl (70-99); Potassium 3.7 mmol/L (3.5-5.1); Sodium 138 mmol/L (135-145); eGFR 44.38
--- NOTE | 2024-07-21 10:38 | W.PN.ID1 ---
Date of Service
Date of Service: July 21, 2024
Today's Communication
sign off,
Assessment / Plan
Rash
Eosinophilia
Leukocytosis
Bilateral lower extremity lymphedema
Venous insufficiency lower extremities bilateral
Diabetes mellitus
Asthma
Afib (on eliquis)
Dyslipidemia
Hypertension
Class III obesity BMI 42
Recommendations:
Monitor off antibiotics.
Nothing further to add from a Infectious Diseases standpoint.
Will see again at your request.
����������������������������������������������������������
Chief Complaint
-: Other (Rash)
Subjective / Review of Systems
Review of Systems: No Fever, No Chills and Skin Rash (Improving)
Vital Signs / Physical Exam
Vital Signs
Vital Signs
Temp Pulse Resp BP Pulse Ox
97.4 F 94 16 127/79 98
07/21/24 07:05 07/21/24 07:55 07/21/24 07:55 07/21/24 07:05 07/21/24 07:55
Physical Exam
Constitutional: No Acute Distress, Comfortable, Chronically Ill and Non-toxic
Eyes: Sclera Anicteric
Pulmonary: Non Labored
Gastrointestinal: Non Distended
Skin: Rash (decreased erythematous rash on upper extremities.)
Neurological: Awake and Alert
Psychological: Calm
Objective Data
Lab Data
Lab Results
07/20/24 20:43
07/21/24 07:18
ESR Cancelled 07/17/24 10:07
PT 19.7 Sec (11.4-14.6) H 07/21/24 07:18
INR 1.65 07/21/24 07:18
Estimated Creat Clear 50 ml/min 07/21/24 07:18
Total Bilirubin 0.6 mg/dl (0.2-1.3) 07/19/24 07:30
AST 22 U/L (17-59) 07/19/24 07:30
ALT 20 U/L (0-50) 07/19/24 07:30
Alkaline Phosphatase 106 U/L (38-126) 07/19/24 07:30
Most recent labs reviewed.
--- NOTE | 2024-07-21 11:11 | W.PN.HOSP.TC ---
Addendum entered and electronically signed by Mick Santos MD 07/25/24 13:27:
CLIFF (not ESRD)
Original Note:
Today's Communication/Plan
-
Discharge today
Assessment / Plan
Assessment / Plan
Physical Exam
General: Well Developed, Well Nourished and No Apparent Distress
HEENT: Normocephalic, Moist mucous membranes and Atraumatic
Respiratory: Clear
Cardiac: S1/S2 and Regular Rhythm; No Murmur or Rub
GI: Soft, Non Tender, Non Distended and Normal Bowel Sounds;
Musculoskeletal: No Cyanosis and No Edema
Skin: Rash and Other (Bilateral lower extremities chronic)
Neuro: AO x 3 and Nonfocal/grossly intact
Psych: Calm
Assessment/Plan
# Diffuse drug eruption , seemed mostly morbilliform type
# Recent Exposure to Meropenem, Ertapenem, Cefepime, Levofloxacin
Now recovering with some dryness and peeling noted. Skin moisturizing cream can help.
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 No other organs involvement as normal liver function test
Received IV steroids this hospitalization
Possible related to IV Abx use, off ABx now
PRN Benadryl
Might take up to 2-3 weeks to complete resolution
Consulted hematology given eosinophilia in the setting of rash
Will need outpatient dermatology/allergy (Dr. Vaishnavi Garcia)/immunology -- Dr. Vaishnavi Garcia said that patient will not be tested on the first appointment
Spoke on July 18, 2024 with outpatient dermatology (Dr. Lukas Maradiaga) who recommended trying topical steroids (like Clobetasol 0.05%) instead of systemic steroids and patient to call their office at [phone]
Continue topical steroids -- Clobetasol Propionate 0.05% Cream, BID for 2 to 4 weeks avoiding the face, groin, and genitalia
# Anemia of chronic disease
- No active bleed
- Continue to monitor chronic kidney disease stage IIIb
- Continued to monitor
# Hyponatremia
# Acute kidney injury with dialysis dependency with improved GFR/outpatient schedule Wednesday
- On dialysis Wednesday -- now no more indication to continue dialysis, as per nephrology
- Nephrology consulted
- Continue Lasix 80 mg twice daily P.O.
#Paroxysmal atrial fibrillation
-Continue rate control with metoprolol succinate 50 mg p.o. twice daily
-Coumadin continued -- dose increased due to subtherapeutic INR -- given INR failing to rise enough, did 5 mg Coumadin on 07/21/24 followed by 3 mg with follow up INR in a few days
-Monitor PT/INR
-Recent echo showed LVEF 65 to 70%, trace TR, biatrial dilatation, mild MR.
# Recent hemorrhagic shock secondary to GI bleeding/hematemesis leading to acute blood loss anemia associated with Eliquis, likely upper GI bleeding from history
#Coagulopathy s/p Kcentra
-Resolved. Patient received a total of 5 units of PRBCs. Received reversal agents in ER. HGB stabilized.
-Continue Protonix 40 mg p.o. BID
# chronic low back pain.
- Tylenol continued
- Lidocaine patch
# Possible L2/L3 discitis
- Previous the course of IV meropenem on 07/06/2024
#Type 2 Diabetes Mellitus
-Sliding scale insulin as needed and it is very low dose needed
-Diabetic Diet
# Hyperlipidemia
-Statin continued
#Morbid Obesity
#History of stage II pressure coccygeal area injury
-Consulted wound care
-Follow-up with Dr. Kb Reich
# Chronic history of bilateral lower extremity lymphedema
# History of alcohol use. No history of recent alcohol intake
#History of asthma
#History of restrictive lung disease
- Nebs from home continued
# Significant BLE lymphedema
-Continue wound care and compression
Code Status: Full Code
DVT Prophylaxis: Anticoagulation with warfarin
More than 30 minutes spent in discharge including
Final examination of the patient
Summarizing hospital stay
Instructions for continuing care to all relevant caregivers
Preparation of discharge records, prescriptions, and referral forms
Total time spent (in minutes): 35
Anticipated Discharge: Today
Subjective/Interval History
-
Date of Service: July 21, 2024
Patient was seen and examined. He denied any new symptoms or complaints and said he is ready to go home today.
Objective Data
-
Labs:
Laboratory Results
07/21/24
07:18
PT 19.7 H
INR 1.65
Sodium 138
Potassium 3.7
Chloride 101
Carbon Dioxide 26
BUN 59 H
Creatinine 1.6 H
Glucose 148 H
Calcium 8.6
Vital Signs:
Vital Signs
Temp Pulse Resp BP Pulse Ox
97.4 F 94 16 127/79 98
07/21/24 07:05 07/21/24 07:55 07/21/24 07:55 07/21/24 07:05 07/21/24 07:55
I&O
07/20/24 07/21/24 07/22/24
06:59 06:59 06:59
Intake Total 1140 / 1140 1740 / 1740
Output Total 1175 / 1175 1800 / 1800
Balance -35 / -35 -60 / -60
[2024-07-21 11:53] LABS: Glucose - Point of Care 244 mg/dl (70-99)
--- NOTE | 2024-07-21 12:15 | PN.CDI ---
CDI
- -
CDI:
Physician Documentation Request
Admit Date: 07/14/24 18:54
Dear Doctor Tom,
H&P and hospitalist progress notes until 07/18 report ESRD.
Nephrology notes state 'CLIFF....CKD with baseline creatinine of 1.4-1.6. '
07/20 right internal jugular tunneled dialysis catheter was removed.
07/19 Nephrology note states 'At this time no indication to continue dialysis'
eGFR results during hospitalization:
07/14/24 07/15/24 07/16/24
15:20 12:47 06:43
eGFR 36.11 28.71 25.98
07/17/24 07/18/24 07/19/24
06:04 07:44 07:30
eGFR 30.28 41.26 41.26
07/20/24 07/21/24
20:43 07:18
eGFR 44.38 44.38
Madeleine clarify which of the following accurately represents the patient's renal status:
____ - CLIFF with type on chronic kidney disease (CKD) - please provide stage - see criteria)
____ - ESRD
____ - Other
Criteria for CLIFF*
1 Increase in serum creatinine by > or = to 0.3 mg/dL (> or = to 26.5 micromol/L) within 48 hours, OR
2 Increase in serum creatinine to > or = to 1.5 times baseline, which is known or presumed to have occurred within 7 days, OR
3 Urine volume < 0.5 nL/kg/hour for six hours
Stages of Chronic Kidney Disease*
Level Description GFR
G1 Normal or High >90
G2 Mildly decreased 60-89
G3a Mildly to moderately decreased 45-59
G3b Moderately to severely decreased 30-44
G4 Severely decreased 15-29
G5 Kidney failure <15
Use of terms such as suspected, likely, concern for, or probable (associated with a specific diagnosis that is being evaluated, monitored, or treated as if it exists) are acceptable and can be coded in the inpatient setting, when documented at the
time of discharge.
Thank you,
Nelly Bill RN BSN
CDI Specialist
tiger text
Please use your independent medical judgment in providing your response.
*Source: Kidney Disease: Improving Global Outcomes (KDIGO) 2012
[2024-07-21] MEDS: NOVOLOG FLEXPEN-MODERATE RESISTANCE 3 UNITS SC (12:35)
--- NOTE | 2024-07-21 12:42 | W.PN.NEPH.PH ---
Today's Communication / Plan
-
Follow-up outpatient 2 weeks
Assessment/Plan
-
Impression:
Acute kidney injury with dialysis dependency with improved GFR/outpatient schedule Wednesday
Anemia of chronic disease
Diffuse chronic rash worsening on his hands and arms with significant swelling over the last 2 days
History of recently diagnosed atrial fibrillation on
Acute renal failure
History of discitis completed antibiotics meropenem on July 06
History of alcohol use
Chronic lymphedema
macular rash
Plan:
48-hour creatinine clearance was around 24 mL/min
Lasix 80 mg twice daily po
Potential skin biopsy
Creatinine 1 7 with EGFR of 47.
PC removed
ok for DC from renal standpoint with bmp 5 days
-
-
Date of Service: July 21, 2024
CC / HPI / ROS
-
Chief Complaint:
Diffuse rash upper extremities and swelling
History of Present Illness:
Acute kidney injury dialysis dependent improving renal function presents with significant rash on his arms and swelling improved with steroids
Review of Systems:.
No chest pain or shortness of breath
Labs
-
Labs:
WBC 9.1 10^3/uL (4.8-10.8) 07/20/24 20:43
RBC 3.11 10^6/uL (4.70-6.10) L 07/20/24 20:43
Hgb 8.7 g/dL (13.0-18.0) L 07/20/24 20:43
Hct 26.3 % (39.0-52.0) L 07/20/24 20:43
Plt Count 246 10^3/uL (130-400) 07/20/24 20:43
Sodium 138 mmol/L (135-145) 07/21/24 07:18
Potassium 3.7 mmol/L (3.5-5.1) 07/21/24 07:18
Chloride 101 mmol/L (98-107) 07/21/24 07:18
Carbon Dioxide 26 mmol/L (22-30) 07/21/24 07:18
BUN 59 mg/dl (9-20) H 07/21/24 07:18
Creatinine 1.6 mg/dL (0.7-1.3) H 07/21/24 07:18
eGFR 44.38 07/21/24 07:18
Glucose 148 mg/dl (70-99) H 07/21/24 07:18
Calcium 8.6 mg/dl (8.4-10.2) 07/21/24 07:18
Albumin 2.6 g/dl (3.5-5.0) L 07/19/24 07:30
Physical Exam
-
Vital Signs:
Vital Signs
Temp Pulse Resp BP Pulse Ox
97.4 F 94 16 127/79 98
07/21/24 07:05 07/21/24 07:55 07/21/24 07:55 07/21/24 07:05 07/21/24 07:55
Respiratory:: Bilateral: CTA
Lung Excursion:: Normal
Abdomen:: Soft
Bowel Sounds:: Normal
Extremity Edema:: +2: Bilateral:
Abraham Catheter: No
--- NOTE | 2024-07-21 12:57 | CM ---
SILVIA met with Kush this afternoon to discuss d/c to home today. His and son will come to pick him up. VN is involved.
IMM reviewed and signed.
Plan: Discharge to home with [facility]
[2024-07-21 14:26] VITALS: BP 132/78
== END 2024-07-21 15:44 | disposition home health service (06) | DRG 815 ==
LOC: 3 WEST ACU 18:54
PROVIDERS: Radiology Diagnostic Radiology; Registered Nurse; Specialist; ADMITTING PHYSICIAN Hospitalist; CONSULT PHYSICIAN Internal Medicine Hematology & Oncology; CONSULT PHYSICIAN Internal Medicine Infectious Disease; CONSULT PHYSICIAN Internal Medicine Nephrology; EMERGENCY PHYSICIAN Student in an Organized Health Care Education/Training Program; FAMILY PHYSICIAN Family Medicine
PROC: 5A1D70Z Performance of Urinary Filtration, Intermittent, Less than 6 Hours Per Day (ICD-10-PCS; 2024-07-15)
PROC: 0JPT0XZ Removal of Tunneled Vascular Access Device from Trunk Subcutaneous Tissue and Fascia, Open Approach (ICD-10-PCS; 2024-07-20)
DX: D72.12 Drug rash with eosinophilia and systemic symptoms syndrome (principal); E87.1 Hypo-osmolality and hyponatremia; N17.9 Acute kidney failure, unspecified; T36.95XA Adverse effect of unspecified systemic antibiotic, initial encounter; D63.1 Anemia in chronic kidney disease; E11.22 Type 2 diabetes mellitus with diabetic chronic kidney disease; D72.10 Eosinophilia, unspecified; I48.0 Paroxysmal atrial fibrillation; G89.29 Other chronic pain; M46.46 Discitis, unspecified, lumbar region; E78.00 Pure hypercholesterolemia, unspecified; E66.01 Morbid (severe) obesity due to excess calories; Z68.38 Body mass index [BMI] 38.0-38.9, adult; I89.0 Lymphedema, not elsewhere classified; J45.909 Unspecified asthma, uncomplicated; Z99.2 Dependence on renal dialysis; Z87.891 Personal history of nicotine dependence; Z79.899 Other long term (current) drug therapy; G47.00 Insomnia, unspecified; Z79.01 Long term (current) use of anticoagulants; E87.70 Fluid overload, unspecified; L29.9 Pruritus, unspecified; E03.9 Hypothyroidism, unspecified; E88.09 Other disorders of plasma-protein metabolism, not elsewhere classified; F10.10 Alcohol abuse, uncomplicated; F41.9 Anxiety disorder, unspecified; I10 Essential (primary) hypertension
CPT/HCPCS: 36589; 80048; 80053; 82668; 82728; 82962; 83010; 83036; 83516; 83540; 83550; 83615; 85025; 85027; 85045; 85610; 85652; 93005; 94640; 96374; 96375; 97116; 97162; 97166; 97530; 97535; 99284; G0257; P9047; Q5106